=== PATIENT | male | born 1965 | race Caucasian/White ===

== ENCOUNTER 2021-05-13 20:49 | Emergency (ER) | payer OTHER, SELFPAY ==
[2021-05-13] MEDS ORDERED: DIAZEPAM 5 MG TABLET ONE (22:42)
[2021-05-13] MEDS ORDERED: dexAMETHasone 10 MG/ML VIAL ONE (22:45)
[2021-05-13] MEDS ORDERED: MORPHINE 4 MG/ML SYR ONE (22:45)
[2021-05-13] MEDS ORDERED: KETOROLAC 30 MG/ML INJ ONE (22:46)
[2021-05-13] MEDS ORDERED: ONDANSETRON 4 MG/2 ML VIAL ONE (22:46)
[2021-05-13 23:06] LABS: Albumin 3.9 g/dL (3.4-5.0); Bilirubin Direct 0.2 mg/dL (0-0.2); Bilirubin Total 0.9 mg/dL (0.2-1.0); Potassium 3.9 mmol/L (3.5-5.1); Protein, Total 7.4 g/dL (6.4-8.2)
[2021-05-13 23:08] LABS: Urine Blood Negative (Negative); Urine Glucose Negative (Negative); Urine Protein Negative (Negative); Urine Specific Gravity >=1.030 (1.005-1.030)
[2021-05-13 23:44] LABS: Absolute Lymphocytes (CBC) 2.6 K/uL (0.7-4.9); Basophils % 0.8 % (0-1.3); Hematocrit 29.5 % (39.6-49.0); Lymphocytes % 46.9 % (15.3-44.8); MPV 9.1 fL (7.6-11.3)
--- NOTE | 2021-05-14 00:03 | EDPHYS ---
Physician Documentation [facility] Name: Yash Carreon Jr Age: 55 yrs Sex: Male : 1965 Arrival Date: 05/13/2021 Time: 20:54 Bed 4 Private MD: ED Physician Francisco Javier Lovett HPI: 05/13 22:14 This 55 yrs old Male presents to ER via Ambulatory with complaints of Low ac Back Pain, Leg Pain - Bilateral, Tingling of legs, Fall Injury - Almost a month ago. 22:14 The patient presents with pain that is acute. The symptoms are located in the low back, ac lumbar area. The pain does not radiate. The problem was sustained during a fall, while standing. Onset: The symptoms/episode began/occurred 1 month(s) ago. Modifying factors: The patient symptoms are alleviated by remaining still, the patient symptoms are aggravated by lifting, movement. Associated signs and symptoms: Pertinent positives: numbness, tingling. Severity of symptoms: At their worst the symptoms were moderate, in the emergency department the symptoms are unchanged. The patient has not experienced similar symptoms in the past. Historical: - Allergies: 21:08 tetanus-diphtheria toxoids-Td; da3 - PMHx: 21:08 None; da3 - PSHx: 21:08 back surgery; da3 - Immunization history:: Client reports having NOT received the Covid vaccine. - Social history:: Smoking status: Patient denies any tobacco usage or history of. - Family history:: not pertinent. ROS: 22:14 Constitutional: Negative for fever, chills, and weight loss, Eyes: Negative for injury, ac pain, redness, and discharge, ENT: Negative for injury, pain, and discharge, Neck: Negative for injury, pain, and swelling, Cardiovascular: Negative for chest pain, palpitations, and edema, Respiratory: Negative for shortness of breath, cough, wheezing, and pleuritic chest pain, Abdomen/GI: Negative for abdominal pain, nausea, vomiting, diarrhea, and constipation, : Negative for injury, bleeding, discharge, and swelling, Skin: Negative for injury, rash, and discoloration, Psych: Negative for depression, anxiety, suicide ideation, homicidal ideation, and hallucinations, Allergy/Immunology: Negative for hives, rash, and allergies, Endocrine: Negative for neck swelling, polydipsia, polyuria, polyphagia, and marked weight changes, Hematologic/Lymphatic: Negative for swollen nodes, abnormal bleeding, and unusual bruising. 22:14 Back: Positive for pain at rest, pain with movement. 22:14 MS/extremity: Positive for decreased range of motion, pain, tenderness, of the back. Exam: 22:14 Constitutional: This is a well developed, well nourished patient who is awake, alert, ac and in no acute distress. Head/Face: Normocephalic, atraumatic. Eyes: Pupils equal round and reactive to light, extra-ocular motions intact. Lids and lashes normal. Conjunctiva and sclera are non-icteric and not injected. Cornea within normal limits. Periorbital areas with no swelling, redness, or edema. ENT: Nares patent. No nasal discharge, no septal abnormalities noted. Tympanic membranes are normal and external auditory canals are clear. Oropharynx with no redness, swelling, or masses, exudates, or evidence of obstruction, uvula midline. Mucous membranes moist. Neck: Trachea midline, no thyromegaly or masses palpated, and no cervical lymphadenopathy. Supple, full range of motion without nuchal rigidity, or vertebral point tenderness. No Meningismus. Chest/axilla: Normal chest wall appearance and motion. Nontender with no deformity. No lesions are appreciated. Cardiovascular: Regular rate and rhythm with a normal S1 and S2. No gallops, murmurs, or rubs. Normal PMI, no JVD. No pulse deficits. Respiratory: Lungs have equal breath sounds bilaterally, clear to auscultation and percussion. No rales, rhonchi or wheezes noted. No increased work of breathing, no retractions or nasal flaring. Abdomen/GI: Soft, non-tender, with normal bowel sounds. No distension or tympany. No guarding or rebound. No evidence of tenderness throughout. Male : Normal genitalia with no discharge or lesions. Skin: Warm, dry with normal turgor. Normal color with no rashes, no lesions, and no evidence of cellulitis. Psych: Awake, alert, with orientation to person, place and time. Behavior, mood, and affect are within normal limits. 22:14 Back: normal spinal alignment noted, CVA tenderness, is absent, vertebral tenderness, is not appreciated, muscle spasm, is appreciated in the left low back, left mid back, right mid back and right low back. Vital Signs: 21:04 BP 128 / 81; Pulse 102; Resp 24; Temp 97.9; Pulse Ox 100% on R/A; Weight 77.11 kg; da3 Height 5 ft. 9 in. (175.26 cm); 23:29 BP 116 / 75; Pulse 88; Resp 20 S; Temp 97.5(O); Pulse Ox 100% on R/A; as6 21:04 Body Mass Index 25.10 (77.11 kg, 175.26 cm) da3 MDM: 21:59 Patient medically screened. [facility] 22:17 Differential diagnosis: arthritis, strain, fracture, sciatica, contusion, Herniated ac disc UTI. Data reviewed: vital signs, nurses notes, lab test result(s), CBC, electrolytes, radiologic studies. Data interpreted: roller skater: rate is 102 beats/min, rhythm is regular, Pulse oximetry: on room air is 100 %. Test interpretation: by ED physician or midlevel provider: ECG, plain radiologic studies. Counseling: I had a detailed discussion with the patient and/or guardian regarding: the historical points, exam findings, and any diagnostic results supporting the discharge/admit diagnosis, lab results, radiology results. 05/13 22:14 Order name: Basic Metabolic Panel; Complete Time: 23:56 [facility] 05/13 22:14 Order name: CBC with Diff [facility] 05/13 22:14 Order name: Type And Screen; Complete Time: 23:56 [facility] 05/13 22:14 Order name: LFT's; Complete Time: 23:56 [facility] 05/13 23:08 Order name: Urine Dipstick-Ancillary; Complete Time: 23:56 [facility] 05/13 22:14 Order name: CT Traumagram (Head C Spine CAP W Con) [facility] 05/13 22:14 Order name: Labs collected and sent; Complete Time: 22:36 [facility] 05/13 23:46 Order name: CBC Smear Scan [facility] 05/13 22:14 Order name: Urine Dipstick-Ancillary (obtain specimen); Complete Time: 23:09 [facility] Administered Medications: 22:56 Drug: Decadron - Dexamethasone 10 mg Route: IVP; Site: right antecubital; as6 22:56 Drug: Valium (diazepam) 5 mg Route: PO; as6 22:56 Drug: morphine 4 mg Route: IVP; Site: right antecubital; as6 22:57 Drug: Ketorolac 30 mg Route: IVP; Site: right antecubital; as6 22:57 Drug: Zofran (Ondansetron) 4 mg Route: IVP; Site: right antecubital; as6 Disposition Summary: 05/14/21 00:02 Discharge Ordered Location: Home [facility] Problem: new [facility] Symptoms: have improved [facility] Condition: Stable [facility] Diagnosis - Low back pain ac - Cervical disc disorder with radiculopathy [facility] - Sciatica [facility] Followup: [facility] - With: Private Physician - When: 2 - 3 days - Reason: Recheck today's complaints, Continuance of care, Re-evaluation by your physician Followup: ac - With: Hunter Molina MD - When: 2 - 3 days - Reason: Recheck today's complaints, Continuance of care, Re-evaluation by your physician Discharge Instructions: - Discharge Summary Sheet [facility] - Acute Back Pain, Adult [facility] - Musculoskeletal Pain [facility] - Back Injury Prevention, [id number] [facility] - Back Exercises, [id number] [facility] Forms: - Medication Reconciliation Form [facility] - Thank You Letter [facility] - Antibiotic Education [facility] - Prescription Opioid Use [facility] Prescriptions: - dexamethasone 2 mg Oral tablet - take 1 tablet by ORAL route 3 times per day; 15 tablet; Refills: 0, Product [facility] Selection Permitted - Diclofenac Sodium 75 mg Oral tablet,delayed release (DR/EC) - take 1 tablet by ORAL route 2 times per day; 20 tablet; Refills: 0, Product [facility] Selection Permitted - Cyclobenzaprine 5 mg Oral Tablet - take 1 tablet by ORAL route 3 times per day As needed; 15 tablet; Refills: 0, [facility] Product Selection Permitted - Tylenol-Codeine #3 300 mg-30 mg Oral - take 2 tablet by ORAL route every 4-6 hours; 20 tablet; Refills: 0, Product [facility] Selection Permitted Signatures: Dispatcher [employer] Francisco Javier Adams MD MD cha Allan, David, RN RN da3 Lance Moscoso RN RN as6
--- NOTE | 2021-05-14 00:03 | ER ---
Nurse's Notes [facility] Name: Yash Carreon Jr Age: 55 yrs Sex: Male : 1965 Arrival Date: 05/13/2021 Time: 20:54 Bed 4 Private MD: Diagnosis: Low back pain;Cervical disc disorder with radiculopathy;Sciatica Presentation: 05/13 21:04 Chief complaint: Patient states: back pain secondary to fall 1 week ago. Coronavirus da3 screen: Vaccine status: Patient reports being unvaccinated. Ebola Screen: No symptoms or risks identified at this time. Initial Sepsis Screen: Does the patient meet any 2 criteria? No. Patient's initial sepsis screen is negative. Does the patient have a suspected source of infection? No. Patient's initial sepsis screen is negative. Risk Assessment: Do you want to hurt yourself or someone else? Patient reports no desire to harm self or others. Onset of symptoms was May 06, 2021 at 15:00. 21:04 Method Of Arrival: Ambulatory da3 21:04 Acuity: JAYESH 3 da3 Triage Assessment: 21:08 General: Appears uncomfortable, Behavior is calm, cooperative. Pain: Complains of pain da3 in back, right leg and left leg. Historical: - Allergies: 21:08 tetanus-diphtheria toxoids-Td; da3 - PMHx: 21:08 None; da3 - PSHx: 21:08 back surgery; da3 - Immunization history:: Client reports having NOT received the Covid vaccine. - Social history:: Smoking status: Patient denies any tobacco usage or history of. - Family history:: not pertinent. Screenin:05 Abuse screen: Denies threats or abuse. Denies injuries from another. Nutritional tw5 screening: No deficits noted. Assessment: 22:05 General: Reports " I have been having this pain since my fall on the . The pain in tw5 my lower back is getting worse. It starts in my lower back and goes all the way to the toes. They are tingling and numb and my groin area is starting to get numb as well." Patient states he had an MRI done yesterday and [facility]. He states he has not received the report yet.". 23:30 Reassessment: Patient and/or family updated on plan of care and expected duration. Pain as6 level reassessed. Patient is alert, oriented x 3, equal unlabored respirations, skin warm/dry/pink. Vital Signs: 21:04 BP 128 / 81; Pulse 102; Resp 24; Temp 97.9; Pulse Ox 100% on R/A; Weight 77.11 kg; da3 Height 5 ft. 9 in. (175.26 cm); 23:29 BP 116 / 75; Pulse 88; Resp 20 S; Temp 97.5(O); Pulse Ox 100% on R/A; as6 21:04 Body Mass Index 25.10 (77.11 kg, 175.26 cm) da3 ED Course: 20:54 Patient arrived in ED. da3 21:08 Triage completed. da3 21:08 Arm band placed on right wrist. da3 21:58 Maria Eugenia Valverde is Primary Nurse. tw5 21:59 Francisco Javier Lovett MD is Attending Physician. ac 22:05 Patient has correct armband on for positive identification. Placed in gown. Bed in low tw5 position. Call light in reach. Side rails up X 1. disk sander on. Pulse ox on. NIBP on. Door closed. Noise minimized. Moved to private room. Verbal reassurance given. 22:36 Basic Metabolic Panel Sent. as6 22:36 CBC with Diff Sent. as6 22:36 Type And Screen Sent. as6 23:15 CT Traumagram (Head C Spine CAP W Con) In Process Unspecified. EDMS 05/14 00:01 Hunter Molina MD is Referral Physician. ac Administered Medications: 05/13 22:56 Drug: Decadron - Dexamethasone 10 mg Route: IVP; Site: right antecubital; as6 22:56 Drug: Valium (diazepam) 5 mg Route: PO; as6 22:56 Drug: morphine 4 mg Route: IVP; Site: right antecubital; as6 22:57 Drug: Ketorolac 30 mg Route: IVP; Site: right antecubital; as6 22:57 Drug: Zofran (Ondansetron) 4 mg Route: IVP; Site: right antecubital; as6 Outcome: 05/14 00:02 Discharge ordered by . ac 00:33 Patient left the ED. mw2 Signatures: Dispatcher [employer] EDMS Bony, Francisco Javier, MD MD ac Cari, MyKena mw2 Andrew Richter, RN RN da3 Maria Eugenia Valverde tw5 Lance Moscoso, NAIMA RN as6
[2021-05-14 00:43] LABS: Blood Morphology Comment NOTED (NOT SEEN); Macrocytosis 3+; Platelet Estimate ADEQ; White Blood Cell Scan OK (OK)
[2021-05-14 01:02] VITALS: O2SAT 100
[2021-05-14 01:04] VITALS: BP 116/75; TEMP 97.5
--- NOTE | 2021-05-14 12:25 | RAD REPORT ---
EXAM DESCRIPTION: CT - Head C Spine Alessio Norris - 05/14/2021 6:26 am CLINICAL HISTORY: Pain;Weakness;Numbness/tingling. TECHNIQUE: Noncontrast CT through the head was performed. Axial, coronal, and sagittal reconstructio ns were created and sent to PACS. CT of the cervical spine was performed without contrast. Axial, coronal, and sagittal reconstructions were created and sent to PACS. CT of the chest, abdomen, and pelvis was performed following intravenous administration of iodinated contrast. Oral contrast was not administered. Axial, coronal, and sagittal reconstructions were creat ed and sent to PACS. This exam was performed according to our departmental dose-optimization program, which includes autom ated exposure control, adjustment of the mA and/or kV according to patient size and/or use of iterati ve reconstruction technique. FINDINGS: CT Head: The brain parenchyma appears unremarkable. There is no intra-axial or extra-axial bleed seen. There i s no mass or mass effect. The ventricles are normal in size, shape, and configuration. The orbital co ntents appear unremarkable. The visualized paranasal sinuses and mastoid air cells are clear. No acute fracture is identified. CT cervical spine: No acute osseous abnormality identified. Vertebral body height and alignment are maintained. No atlan todental interval widening. Atlantoaxial alignment is maintained. The facet joints are well aligned. The posterior elements are intact. The occipital condyles are well aligned with the C1 lateral masses . The transverse foramina are intact. C2-C3: No significant central canal or neuroforaminal narrowing. C3-C4: No significant central canal or neuroforaminal narrowing. C4-C5: Mild bilateral neuroforaminal narrowing due to uncinate and facet hypertrophy. No significant central canal narrowing. C5-C6: Mild disc height loss. Posterior disc osteophyte complex results in moderate central canal dianna rowing to 0.5 cm AP. Mild bilateral neuroforaminal narrowing due to uncinate and facet hypertrophy. C6-C7: No significant central canal or neuroforaminal narrowing. Paraspinal soft tissues: No prevertebral soft tissue swelling. No evidence of epidural hematoma. No a cute findings in the demonstrated portions of the lung apices. CT chest, abdomen, pelvis: Lungs and pleura: No pulmonary consolidation. No pleural effusion. No pneumothorax. Mediastinum and neck: No mediastinal lymphadenopathy identified by CT size criteria. Unremarkable lary earance of the thyroid gland. Cardiac: No cardiomegaly or pericardial effusion. No thoracic aortic aneurysm or dissection. No centr al pulmonary embolism is visualized. Hepatobiliary: Tiny hypodensity in the superior left hepatic lobe, possibly a cyst or hemangioma. No concerning hepatic lesion identified. The portal veins are patent. The gallbladder is unremarkable. N o biliary ductal dilatation. Pancreas: Unremarkable. Spleen: Unremarkable. Gastrointestinal: No evidence of bowel obstruction or perienteric inflammation. The appendix is nonvi sualized, but there are no pericecal inflammatory changes identified.. Small to moderate amount of fe juliette material throughout the colon. Adrenals: No abnormality identified in either adrenal gland. Renal: Trace bilateral perinephric fat stranding. No concerning parenchymal abnormality in either kid rhonda. No hydronephrosis or urolithiasis. Bladder/Reproductive: Mild diffuse wall thickening of the urinary bladder. Vascular/Lymphatics: No lymphadenopathy identified by CT size criteria. Abdominal aorta is normal in caliber. Musculoskeletal: No concerning osseous lesion identified. Mild disc height loss at L5-S1. Mild facet arthropathy in the lower lumbar spine. Fluid / peritoneum: No significant free fluid. No free intraperitoneal air identified. IMPRESSION 1. No acute intracranial abnormality identified. 2. No acute osseous abnormality identified in the cervical spine. Degenerative changes, most notabl e for moderate central canal narrowing at C5-6 due to a posterior disc osteophyte complex. 3. Mild diffuse wall thickening of the urinary bladder. Consider correlation for cystitis. 4. No additional potential acute abnormality identified in the chest, abdomen, or pelvis. Electronically signed by: Lili Alvarez MD 05/13/2021 11:47 PM INSIDE UPHOLSTERER Due to temporary technical issues with the PACS/Fluency reporting system, reports are being signed by the in house radiologist without review as a courtesy to ensure prompt reporting. The interpreting r adiologist is fully responsible for the content of the report.
== END 2021-05-14 00:33 | disposition home or self-care (01) ==
LOC: ER 20:49
DX: M50.10 Cervical disc disorder with radiculopathy, unspecified cervical region (principal); M54.30 Sciatica, unspecified side; Z88.7 Allergy status to serum and vaccine
CPT/HCPCS: 85025; 80048; 36415; 86900; 86850; 82565; 86901; 80076; 81003; 70450; 72125; 71260; 74177; Q9967; J2405; J1100

== ENCOUNTER 2021-10-08 22:50 | Emergency (ER) | payer OTHER ==
--- OUTSIDE RECORDS SUMMARY | 2021-10-08 22:52 | XMS REPORT | Continuity of Care Document ---
:1965 Author Organization [facility] t Address [address] [place] [address] Care Team Providers Name Role Phone Grigoreff Attending Clinician Unavailable Rainer Attending Clinician Unavailable Rainer Admitting Clinician Unavailable Grigoreff Admitting Clinician Unavailable Payers Payer Name Policy Type Policy Number Effective Date Expiration Date S ource Problems This patient has no known problems. Allergies, Adverse Reactions, Alerts Allergy Allergy Status Severity Reaction(s) Onset Inactive Treating Comm ents Source Name Type Date Date Clinician lactose FA Active U DIARRHEA [facility] 06-18 [place] 00:00: [facility] 00 are [facility] Tetanus DA Active U ARM SWE[facility] Vaccines 06-18 [place] and 00:00: [facility] Toxoid 00 are [facility] No Known DA Active U [facility] Allergie 06-18 [place] 00:00: [facility] 00 are [facility] Medications This patient has no known medications. Procedures Procedure Date / Time Performed Performing Clinician [facility] tu [id number] 2021-06-27 00:00:00 LUCAS [facility] [id number] 2021-06-27 00:00:00 LUCAS [facility] [id number] 2021-06-27 00:00:00 DANNA [facility] [id number] 2021-06-20 00:00:00 DANNA [facility] [id number] 2021-06-20 00:00:00 DANNA [facility] [id number] 2021-06-20 00:00:00 OWUAN [facility] [id number] 2021-06-20 00:00:00 OWUAN [facility] [id number] 2021-06-20 00:00:00 OWUAN [facility] [id number] 2021-06-20 00:00:00 OWUAN [facility] [id number] 2021-06-20 00:00:00 OWUAN [facility] [id number] 2021-06-20 00:00:00 OWUAN [facility] [id number] 2021-06-20 00:00:00 OWUAN [facility] [id number] 2021-06-20 00:00:00 OWKATELIN [facility] [id number] 2021-06-20 00:00:00 OWKATELIN [facility] [id number] 2021-06-20 00:00:00 OWKATELIN [facility] Encounters Start End Encounter Admission Attending Care Care Encounter Source Date/Time Date/Time Type Type Clinicians Facility Department ID 2021-07-09 Inpatient Grigoreff, HCANW HCANW [id number] [facility] 09:00:00 Meri [id number] [facility] are [facility] 2021-06-26 2021-07-08 Inpatient EL Grigoreff, HCANW REHA [id number] [facility] 14:33:00 15:00:00 Meri 87 [facility] are [facility] 2021-06-26 2021-07-08 Inpatient EL Grigoreff, HCANW REHA [id number] [facility] 14:33:00 15:00:00 Meri [id number] [facility] are [facility] 2021-06-20 2021-06-26 Inpatient EL Rainer, HCANW ADMI [id number] [facility] 06:24:00 14:53:00 Chip [id number] [facility] are [facility] Results Test Description Test Time Test Comments Results Result Comments Source COMPREHENSIVE METABOLIC PANEL 2021-08-26 05:34:01 Test Item Value Reference Range Interpretation Comme nts GLUCOSE (test code = 2217) 104 MG/DL 70-99 H BUN (test code = 2208) 13 MG/DL 6-20 CREATININE (test code = 0.94 MG/DL 0.80-1.40 2213) eGFR (2020 CKD-EPI) (test 95 ML/MIN/1.73 >60 code = 00940) CALC BUN/CREAT (test code = 14 RATIO 6-28 2234) SODIUM (test code = 223) 141 MEQ/L 133-146 POTASSIUM (test code = 4.1 MEQ/L 3.5-5.4 2227) CHLORIDE (test code = 2214) 104 MEQ/L 95-107 CARBON DIOXIDE (test code = 24 MEQ/L 19-31 2205) CALCIUM (test code = 2208) 9.3 MG/DL 8.5-10.5 PROTEIN, TOTAL (test code = 7.3 G/DL 6.1-8.3 2228) ALBUMIN (test code = 2200) 4.5 G/DL 3.5-5.2 CALC GLOBULIN (test code = 2.8 G/DL 1.9-3.7 2239) CALC A/G RATIO (test code = 1.6 RATIO 1.0-2.6 2233) BILIRUBIN, TOTAL (test code 0.6 MG/DL See_Comment [Automated message] The = 2206) system which ge nerated this result transmit shukri reference range: <=1.2. T he reference range was not u sed to interpret this result as normal/abnormal . ALKALINE PHOSPHATASE (test 112 U/L 40-123 code = 2203) AST (test code = 2218) 13 U/L 9-50 ALT (test code = 2219) 14 U/L 5-50 UNLESS OTHERWISE INDICATED, ALL TESTING PERFORMED [facility] [address] [place] [address] WRINKLE CHASER: MAGALY SIEGEL M.D. CLIA NUMBER [id number] [place]. [id number] - CT L-SPINE W/O [id number] 12:32:[facility] 1965 Sex: MPatient Name: HERB AVENDANO GARY MARTIN Unit No: [id number] EXAMS: CPT: [id number] CT L-SPINE W/O CONTRAST [address] CT LUMBAR SPINE Multiplanar imaging of the lumbar spinewas performed without contrast. Radiation dose optimization was achieved by protocols in accordance with standard of practice, department policies and photo optics technician's recommendations with one or more of the following: Automated exposure control, adjustment of KVP an d MAS by age and weight, iterative reconstruction technique. DLP: 552 mGy/cm HISTORY PROVIDED: Previous surgery. Increasing pain. COMPARISON: Patient had CT lumbar spine June 22, 2021 FINDINGS: T12-L1: The disc is normal in size and configuration. There is no disc herniation or bulge. Facets demonstrate no significant arthrosis. There is no spinal or foraminal stenosis. L1-L2: The disc is normal in size and configuration. There is no disc herniation or bulge. Facets demonstrate no significant arthrosis. There is no spinal or foraminal stenosis. L2-L3: The disc is normal in size and configuration. There is no disc herniation or bulge. Facets demonstrate no significant arthrosis. There is no spinal or foraminal stenosis. L3-L4: The disc is normal in size and configuration. There is no disc herniation or bulge. Facets demonstrate no significant arthrosis. There is no spinal or foraminal stenosis. L4-L5: Pedicle screws are nicely positioned in L4 and L5. Interbody grafting is evident. Wide laminectomy allows forgood expansion of the central canal. Detail is obscured by hardware and postoperative changes. There apparently has been interval surgery with removal of some bone graft material noted at this level on the prior exam. L5-S1: Pedicle screws are nicely positioned in L5 and S1. Interbody graft is evident. There is wide laminectomy posteriorly allowing for good expansion of the central canal. At the operated levels no focal fluid collection is identified posteriorly although some soft tissue swelling as might be expected is appreciated. CONCLUSION: The postoperative levels do not show focalfluid collection posteriorly and there is no evidence of spinal stenosis although there Name: HERB AVENDANO JR [facility] Phys: Mara Ham [facility] [address] : 1965 Age: 55 Sex: M [place] [address] Loc: N.0312 1 Exam Date: 07/08/2021 Status: ADM IN PH: FAX: PAGE 1 Signed Report (CONTINUED) Patient Name: HERB AVENDANO Unit No: [id number] EXAMS: CPT: [id number] CT L-SPINE W/O CONTRAST 14086 <Continued> is substantial artifact from the hardware which limits detail evaluation of the central canal. at 1232 Reported and signed by: Hector Cooney MD CC: Meri Rosas MD;Chip Spear MD; Mara Paiz Technologist: Wilian Garces CTDI: 15.27 DLP: 552.03 Trscr Dt/Tm: 07/08/2021 (1232) by:Black Orig Print D/T: S: 07/08/2021 (1235) BATCH NO: N/A Name: HERB AVENDANO GARY MARTIN [facility] Phys: Mara Ham [facility] [address] : 1965 Age: 55 Sex: M [place] [address] Loc: N.0312 1 Exam Date: 07/08/2021 Status: ADM IN PH: FAX: PAGE 2Signed [id number] GLYCOSYLATED [id number] 12:46:00 Test Item Value Reference Range Interpretation Comments GLYCOSYLATED HEMOGLOBIN 4.9 % 4.0-6.0 N Inte rpretive Data: (HA1C) (test code = Caution should be GLYHGB) exercised when interpreting th e HgbA1c in patients wit h hemolytic anemi a, iron deficiency and when the total hemoglobi n is < 9g/dL, due to a decrease in ave rage age of red blood ce lls Spec Comments: add to collected labsComments to Phleb: add to collected labsCBC W/AUTO [id number] 09:48:00 Test Item Value Reference Range Interpretation Comments WHITE BLOOD CELL (test code = 7.2 x10 3/uL 3.2-11.5 N WBC) RED BLOOD CELL (test code = 2.53 x10(6)/m 4.20-5.70 L RBC) HEMOGLOBIN (test code = HGB) 10.6 g/dL 12.9-17.3 L HEMATOCRIT (test code = HCT) 30.7 % 38.7-51.0 L MEAN CELL VOLUME (test code = 121 fL 80-100 H MCV) MEAN CELL HGB (test code = MCH) 41.9 pg 26.7-33.3 H MEAN CELL HGB CONCENTRATION 34.5 g/dL 30.0-34.0 H (test code = MCHC) RED CELL DISTRIBUTION WIDTH 12.8 % 11.3-14.5 N (test code = RDW) PLATELET COUNT (test code = 498 x10 3/uL 130-408 H PLT) MEAN PLATELET VOLUME (test code 10.2 fL 8.6-12.6 N = MPV) NEUTROPHIL % (test code = NT%) 68.4 % 40.0-70.0 N LYMPHOCYTE % (test code = LY%) 21.0 % 20-40 N MONOCYTE % (test code = MO%) 5.9 % 1-10 N EOSINOPHIL % (test code = EO%) 3.6 % 0.0-5.0 N BASOPHIL % (test code = BA%) 0.8 % 0.0-1.0 N NUCLEATED RBC % (test code = 0.0 % 0.0-0.9 N NRBC%) NEUTROPHIL # (test code = NT#) 4.9 x10 3/uL 1.6-7.2 N LYMPHOCYTE # (test code = LY#) 1.52 x10 3/uL 1.1-2.7 N MONOCYTE # (test code = MO#) 0.4 x10 3/uL 0.3-0.8 N EOSINOPHIL # (test code = EO#) 0.3 x10 3/uL 0.0-0.5 N IMMATURE GRANULOCYTE % (test 0.3 % 0.0-2.0 N code = IG%) BASOPHIL # (test code = BA#) 0.1 x10 3/uL 0.0-0.1 N DIFFERENTIAL [id number] 09:48:00 Test Item Value Reference Range Interpretation Comments PLATELET MORPHOLOGY (test code = NORM NORMAL PLTMORPH) POLYCHROMASIA (test code = POLC) 1+ NONE SEEN A MACROCYTOSIS (test code = MACR) 2+ NONE SEEN A BASIC METABOLIC [id number] 07:23:00 Test Item Value Reference Range Interpretation Comments SODIUM (test code 137 mmol/L 135-145 N = NA) POTASSIUM (test 3.6 mmol/L 3.6-5.0 N code = K) CHLORIDE (test 102 mmol/L 101-111 N code = CL) CARBON DIOXIDE 26 mmol/L 21-31 N (test code = CO2) GLUCOSE (test code 124 mg/dl 70-100 H = GLU) BLOOD UREA 15 mg/dl 6-20 N NITROGEN (test code = BUN) GLOMERULAR >=60 max >60 The estimated FILTRATION RATE estimate glomerular (test code = GFR) filtration rate is computed usingpatient ra ce, age (>18), sex, and serum creatinin e. If anyof the neede d data elements a re missing the Laboratory mary ot compute an estimation of t he glomerular filtration rate . CREATININE (test 0.96 mg/dL 0.64-1.27 N code = CREAT) CALCIUM (test code 9.1 mg/dL 8.5-10.5 N = CA) - XR C-SPINE 2-3 [id number] 17:56:00 [facility] : 1965 Sex: MPatient Name: HERB AVENDANO GARY Unit No: [id number] EXAMS: CPT: [id number] XR C-SPINE 2-3 VIEWS [id number] EXAMINATION:Cervical Spine 3 views. INDICATION: Neck pain COMPARISON:None FINDINGS: AP, lateral, and open-mouth odontoid views of the cervical spine. Vertebral bodies normal in height. Mild straightening of the cervical lordosis There is no acute fracture or dislocation. No focal osseous lesionsare evident. No prevertebral soft tissue swelling. Anterior osteophytes and C5 and C6 with mild degenerative disc space narrowing at C5-C6. Facet and uncovertebral arthrosis most notable at C3-C4, C4-C5 and C5-C6. IMPRESSION: No acute abnormality seen of the cervical spine. Degenerative changes as above. at 1756 Reported and signed by: Radha Mireles MD CC: Meri Rosas MD; Chip Spear MD Technologist: Radha Ortega Time: DAP (Gy m2): Air Kerma (mGy): Trscr Dt/Tm: 07/03/2021 (1755) by:[email or web address] Orig Print D/T: S: 07/03/2021 (1758) BATCH NO: N/A Name: HERB AVENDANO [facility] Phys: Meri Canela MD [address] : 1965 Age: 55 Sex: M [place], [place] [address] Loc: N.0312 1 Exam Date: 07/03/2021 Status: ADM IN PH: FAX: PAGE 1 Signed ReportCBC W/AUTO [id number] 11:29:00 Test Item Value Reference Range Interpretation Comments WHITE BLOOD CELL (test code = 7.2 x10 3/uL 3.2-11.5 N WBC) RED BLOOD CELL (test code = 2.68 x10(6)/m 4.20-5.70 L RBC) HEMOGLOBIN (test code = HGB) 11.4 g/dL 12.9-17.3 L HEMATOCRIT (test code = HCT) 32.6 % 38.7-51.0 L MEAN CELL VOLUME (test code = 122 fL 80-100 H MCV) MEAN CELL HGB (test code = MCH) 42.5 pg 26.7-33.3 H MEAN CELL HGB CONCENTRATION 35.0 g/dL 30.0-34.0 H (test code = MCHC) RED CELL DISTRIBUTION WIDTH 13.3 % 11.3-14.5 N (test code = RDW) PLATELET COUNT (test code = 579 x10 3/uL 130-408 H PLT) MEAN PLATELET VOLUME (test code 9.9 fL 8.6-12.6 N = MPV) NEUTROPHIL % (test code = NT%) 64.7 % 40.0-70.0 N IMMATURE GRANULOCYTE % (test 0.7 % 0.0-2.0 N code = IG%) LYMPHOCYTE % (test code = LY%) 27.7 % 20-40 N MONOCYTE % (test code = MO%) 4.0 % 1-10 N EOSINOPHIL % (test code = EO%) 1.9 % 0.0-5.0 N BASOPHIL % (test code = BA%) 1.0 % 0.0-1.0 N NUCLEATED RBC % (test code = 0.0 % 0.0-0.9 N NRBC%) NEUTROPHIL # (test code = NT#) 4.7 x10 3/uL 1.6-7.2 N LYMPHOCYTE # (test code = LY#) 2.00 x10 3/uL 1.1-2.7 N MONOCYTE # (test code = MO#) 0.3 x10 3/uL 0.3-0.8 N EOSINOPHIL # (test code = EO#) 0.1 x10 3/uL 0.0-0.5 N BASOPHIL # (test code = BA#) 0.1 x10 3/uL 0.0-0.1 N DIFFERENTIAL [id number] 11:29:00 Test Item Value Reference Range Interpretation Comments PLATELET MORPHOLOGY (test code = NORM NORMAL PLTMORPH) MACROCYTOSIS (test code = MACR) 2+ NONE SEEN A BASIC METABOLIC [id number] 11:10:00 Test Item Value Reference Range Interpretation Comments SODIUM (test code 138 mmol/L 135-145 N = NA) POTASSIUM (test 3.8 mmol/L 3.6-5.0 N code = K) CHLORIDE (test 102 mmol/L 101-111 N code = CL) CARBON DIOXIDE 25 mmol/L 21-31 N (test code = CO2) GLUCOSE (test code 139 mg/dl 70-100 H = GLU) BLOOD UREA 15 mg/dl 6-20 N NITROGEN (test code = BUN) GLOMERULAR >=60 max >60 The estimated FILTRATION RATE estimate glomerular (test code = GFR) filtration rate is computed usingpatient ra ce, age (>18), sex, and serum creatinin e. If anyof the neede d data elements a re missing the Laboratory mary ot compute an estimation of t he glomerular filtration rate . CREATININE (test 0.94 mg/dL 0.64-1.27 N code = CREAT) CALCIUM (test code 9.3 mg/dL 8.5-10.5 N = CA) [id number] 14:25:00 Test Item Value Reference Range Interpretation Comments TROPONIN-I (test code = TROPI) <0.020 ng/mL 0.000-0.034 N [id number] 13:28:00 Test Item Value Reference Range Interpretation Comments GLUBED (test code = GLUBED) 112 MG/DL 70-105 H COVID 19 Asymptomatic IH [id number] 10:05:00 Test Item Value Reference Range Interpretation Comments COVID 19 Asymptomatic Negative Negative Negati ve results should IH AG (test code = be treate d as COVNONPUIAG) presumptive andconfirmed wi th a molecular assay , if necessary for patientmanageme nt. Negative result s do not rule out COVID- 19 andshould not b e used as the sole bas is for treatment orpat ient management deci sions, including infec tion controldecision s. Negative result s should be considered i n thecontext of a patient's recen t exposures, hist ory and thepresence of clnical signs and sympt oms consistent withCOVID-19.Sp ecimen Source: Nasopha ryngeal (PANEL INSTRUMENT REPAIRER) Swab CBC W/AUTO [id number] 09:42:00 Test Item Value Reference Range Interpretation Comments WHITE BLOOD CELL (test code = 7.4 x10 3/uL 3.2-11.5 N WBC) RED BLOOD CELL (test code = 2.18 x10(6)/m 4.20-5.70 L RBC) HEMOGLOBIN (test code = HGB) 9.5 g/dL 12.9-17.3 L HEMATOCRIT (test code = HCT) 26.8 % 38.7-51.0 L MEAN CELL VOLUME (test code = 123 fL 80-100 H MCV) MEAN CELL HGB (test code = MCH) 43.6 pg 26.7-33.3 H MEAN CELL HGB CONCENTRATION 35.4 g/dL 30.0-34.0 H (test code = MCHC) RED CELL DISTRIBUTION WIDTH 12.4 % 11.3-14.5 N (test code = RDW) PLATELET COUNT (test code = 414 x10 3/uL 130-408 H PLT) MEAN PLATELET VOLUME (test code 10.1 fL 8.6-12.6 N = MPV) NEUTROPHIL % (test code = NT%) 66.9 % 40.0-70.0 N LYMPHOCYTE % (test code = LY%) 20.5 % 20-40 N MONOCYTE % (test code = MO%) 7.8 % 1-10 N EOSINOPHIL % (test code = EO%) 3.6 % 0.0-5.0 N BASOPHIL % (test code = BA%) 0.7 % 0.0-1.0 N NUCLEATED RBC % (test code = 0.0 % 0.0-0.9 N NRBC%) NEUTROPHIL # (test code = NT#) 4.9 x10 3/uL 1.6-7.2 N LYMPHOCYTE # (test code = LY#) 1.52 x10 3/uL 1.1-2.7 N MONOCYTE # (test code = MO#) 0.6 x10 3/uL 0.3-0.8 N EOSINOPHIL # (test code = EO#) 0.3 x10 3/uL 0.0-0.5 N IMMATURE GRANULOCYTE % (test 0.5 % 0.0-2.0 N code = IG%) BASOPHIL # (test code = BA#) 0.1 x10 3/uL 0.0-0.1 N DIFFERENTIAL [id number] 09:42:00 Test Item Value Reference Range Interpretation Comments PLATELET MORPHOLOGY (test code = Normal NORMAL PLTMORPH) POLYCHROMASIA (test code = POLC) 1+ NONE SEEN A MACROCYTOSIS (test code = MACR) 2+ NONE SEEN A BASIC METABOLIC [id number] 08:58:00 Test Item Value Reference Range Interpretation Comments SODIUM (test code 134 mmol/L 135-145 L = NA) POTASSIUM (test 3.7 mmol/L 3.6-5.0 N code = K) CHLORIDE (test 99 mmol/L 101-111 L code = CL) CARBON DIOXIDE 26 mmol/L 21-31 N (test code = CO2) GLUCOSE (test code 115 mg/dl 70-100 H = GLU) BLOOD UREA 13 mg/dl 6-20 N NITROGEN (test code = BUN) GLOMERULAR >=60 max >60 The estimated FILTRATION RATE estimate glomerular (test code = GFR) filtration rate is computed usingpatient ra ce, age (>18), sex, and serum creatinin e. If anyof the neede d data elements a re missing the Laboratory mary ot compute an estimation of t he glomerular filtration rate . CREATININE (test 1.02 mg/dL 0.64-1.27 N code = CREAT) CALCIUM (test code 8.8 mg/dL 8.5-10.5 N = CA) UA RFLX MICR CULT IF [id number] 21:37:00 Test Item Value Reference Range Interpretation Comments UA COLOR (test code = YELLOW YELLOW COLU) UA APPEARANCE (test Clear CLEAR code = APPU) UA GLUCOSE DIPSTICK NEGATIVE NEGATIVE (test code = DGLUU) UA BILIRUBIN DIPSTICK NEGATIVE NEGATIVE (test code = BILU) UA KETONE DIPSTICK NEGATIVE NEGATIVE (test code = KETU) UA SPECIFIC GRAVITY 1.024 1.001-1.030 (test code = SGU) UA BLOOD DIPSTICK (test NEGATIVE NEGATIVE code = PAM) UA PH DIPSTICK (test 5.0 5.0-9.0 code = GLEN) UA PROTEIN DIPSTICK NEGATIVE NEGATIVE (test code = PROU) UA UROBILINOGEN 4.0 See_Comment A [Automated message] DIPSTICK (test code = The sy stem which URO) generated this result transmitted ref erence range: <=1.0. T he reference range was not used to int erpret this result as normal/abnormal . UA NITRITE DIPSTICK NEGATIVE NEGATIVE (test code = RIMA) UA ASCORBIC ACID NEGATIVE DIPSTICK (test code = AAU) UA LEUKOCYTE ESTERASE NEGATIVE NEGATIVE DIPSTICK (test code = LEUU) UA WBC (test code = 0-5 /HPF 0-5 WBCUR) UA RBC (test code = 0-5 /HPF 0-5 RBCU) UA EPITHELIAL CELLS None /LPF NONE-FEW (test code = EPIU) UA BACTERIA (test code None /HPF NONE SEEN = BACU) UA MUCUS (test code = 1+ /LPF NONE SEEN MUCU) Indication for culture: Dysuria/FrequencySpecimen Description: CLEAN CATCH CBC W/AUTO [id number] 06:51:00 Test Item Value Reference Range Interpretation Comments WHITE BLOOD CELL (test code = 11.4 x10 3/uL 3.2-11.5 N WBC) RED BLOOD CELL (test code = 2.00 x10(6)/m 4.20-5.70 L RBC) HEMOGLOBIN (test code = HGB) 9.0 g/dL 12.9-17.3 L HEMATOCRIT (test code = HCT) 24.9 % 38.7-51.0 L MEAN CELL VOLUME (test code = 125 fL 80-100 H MCV) MEAN CELL HGB (test code = MCH) 45.0 pg 26.7-33.3 H MEAN CELL HGB CONCENTRATION 36.1 g/dL 30.0-34.0 H (test code = MCHC) RED CELL DISTRIBUTION WIDTH 11.2 % 11.3-14.5 L (test code = RDW) PLATELET COUNT (test code = 281 x10 3/uL 130-408 N PLT) MEAN PLATELET VOLUME (test code 10.3 fL 8.6-12.6 N = MPV) NEUTROPHIL % (test code = NT%) 70.7 % 40.0-70.0 H LYMPHOCYTE % (test code = LY%) 17.5 % 20-40 L MONOCYTE % (test code = MO%) 9.5 % 1-10 N EOSINOPHIL % (test code = EO%) 1.1 % 0.0-5.0 N BASOPHIL % (test code = BA%) 0.4 % 0.0-1.0 N NUCLEATED RBC % (test code = 0.0 % 0.0-0.9 N NRBC%) NEUTROPHIL # (test code = NT#) 8.1 x10 3/uL 1.6-7.2 H LYMPHOCYTE # (test code = LY#) 2.00 x10 3/uL 1.1-2.7 N MONOCYTE # (test code = MO#) 1.1 x10 3/uL 0.3-0.8 H EOSINOPHIL # (test code = EO#) 0.1 x10 3/uL 0.0-0.5 N IMMATURE GRANULOCYTE % (test 0.8 % 0.0-2.0 N code = IG%) BASOPHIL # (test code = BA#) 0.0 x10 3/uL 0.0-0.1 N DIFFERENTIAL [id number] 06:51:00 Test Item Value Reference Range Interpretation Comments PLATELET MORPHOLOGY (test code = Normal NORMAL PLTMORPH) POLYCHROMASIA (test code = POLC) 1+ NONE SEEN A MACROCYTOSIS (test code = MACR) 2+ NONE SEEN A BASIC METABOLIC [id number] 04:48:00 Test Item Value Reference Range Interpretation Comments SODIUM (test code 133 mmol/L 135-145 L = NA) POTASSIUM (test 3.7 mmol/L 3.6-5.0 N code = K) CHLORIDE (test 98 mmol/L 101-111 L code = CL) CARBON DIOXIDE 26 mmol/L 21-31 N (test code = CO2) GLUCOSE (test code 112 mg/dl 70-100 H = GLU) BLOOD UREA 14 mg/dl 6-20 N NITROGEN (test code = BUN) GLOMERULAR >=60 max >60 The estimated FILTRATION RATE estimate glomerular (test code = GFR) filtration rate is computed usingpatient ra ce, age (>18), sex, and serum creatinin e. If anyof the neede d data elements a re missing the Laboratory mary ot compute an estimation of t he glomerular filtration rate . CREATININE (test 1.03 mg/dL 0.64-1.27 N code = CREAT) CALCIUM (test code 8.3 mg/dL 8.5-10.5 L = CA) BASIC METABOLIC [id number] 04:26:00 Test Item Value Reference Range Interpretation Comments SODIUM (test code 138 mmol/L 135-145 N = NA) POTASSIUM (test 3.3 mmol/L 3.6-5.0 L code = K) CHLORIDE (test 102 mmol/L 101-111 N code = CL) CARBON DIOXIDE 27 mmol/L 21-31 N (test code = CO2) GLUCOSE (test code 134 mg/dl 70-100 H = GLU) BLOOD UREA 11 mg/dl 6-20 N NITROGEN (test code = BUN) GLOMERULAR >=60 max >60 The estimated FILTRATION RATE estimate glomerular (test code = GFR) filtration rate is computed usingpatient ra ce, age (>18), sex, and serum creatinin e. If anyof the neede d data elements a re missing the Laboratory mary ot compute an estimation of t he glomerular filtration rate . CREATININE (test 1.00 mg/dL 0.64-1.27 N code = CREAT) CALCIUM (test code 8.4 mg/dL 8.5-10.5 L = CA) CBC W/AUTO [id number] 04:10:00 Test Item Value Reference Range Interpretation Comments WHITE BLOOD CELL (test code = 11.7 x10 3/uL 3.2-11.5 H WBC) RED BLOOD CELL (test code = 1.97 x10(6)/m 4.20-5.70 L RBC) HEMOGLOBIN (test code = HGB) 9.1 g/dL 12.9-17.3 L HEMATOCRIT (test code = HCT) 24.7 % 38.7-51.0 L MEAN CELL VOLUME (test code = 125 fL 80-100 H MCV) MEAN CELL HGB (test code = MCH) 46.2 pg 26.7-33.3 H MEAN CELL HGB CONCENTRATION 36.8 g/dL 30.0-34.0 H (test code = MCHC) RED CELL DISTRIBUTION WIDTH 11.7 % 11.3-14.5 N (test code = RDW) PLATELET COUNT (test code = 276 x10 3/uL 130-408 N PLT) MEAN PLATELET VOLUME (test code 10.6 fL 8.6-12.6 N = MPV) NEUTROPHIL % (test code = NT%) 69.2 % 40.0-70.0 N LYMPHOCYTE % (test code = LY%) 19.6 % 20-40 L MONOCYTE % (test code = MO%) 8.3 % 1-10 N EOSINOPHIL % (test code = EO%) 1.5 % 0.0-5.0 N BASOPHIL % (test code = BA%) 0.3 % 0.0-1.0 N NUCLEATED RBC % (test code = 0.0 % 0.0-0.9 N NRBC%) NEUTROPHIL # (test code = NT#) 8.1 x10 3/uL 1.6-7.2 H LYMPHOCYTE # (test code = LY#) 2.28 x10 3/uL 1.1-2.7 N MONOCYTE # (test code = MO#) 1.0 x10 3/uL 0.3-0.8 H EOSINOPHIL # (test code = EO#) 0.2 x10 3/uL 0.0-0.5 N IMMATURE GRANULOCYTE % (test 1.1 % 0.0-2.0 N code = IG%) BASOPHIL # (test code = BA#) 0.0 x10 3/uL 0.0-0.1 N - CT L-SPINE [id number] 17:48:00 [facility] HERBJEZ VEGA : 1965 Sex: MPatient Name: HERB AVENDANO Unit No: [id number] EXAMS: CPT: [id number] CT L-SPINE W/CONTRAST [id number] STUDY: CT of the lumbar spine with contrast. CLINICAL HISTORY: post op with right leg numbness TECHNIQUE: Multiple axial CT images of the lumbar spine with 100 mL Isovue-300 IV contrast. Coronal and sagittal reformatted images werealso generated for interpretation. CT radiation dose optimization is achieved for thisexamination by the use of a CT protocol in accordance with ACR practice guidelines and adherence to photo optics technician recommendations. CT DLP: 1289 mGy-cm COMPARISON:None FINDINGS: There are 5 nonrib-bearing lumbar vertebrae. Preserved lumbar lordotic curvature. No evidence of acute compression fracture or posterior elementfracture. Prior discectomy at L4-L5 and L5-S1, laminectomies at L4 and L5, and posterior instrumented fusion from L4 through S1. The fusion hardware appears intact and in good position. Paraspinal bone grafts are also present around the fusion rods. Postsurgical softtissue swelling mixed with some emphysema at the level of the surgery. There is no worrisome collection in the area. Level by level evaluation: T11-T12: No discbulge calcification. Ligamentum flavum thickening/calcification that result in mild posterior thecal sac effacement. Patent foramina. T12-L1: No disc bulge/herniation or degenerative change. Patent canal and foramina. L1-L2: No disc bulge/herniation or degenerative change. Patent canal and foramina. L2-L3: No disc bulge/herniation. Mild ligament flavum thickening and calcification. Patent canal and foramina. L3-L4: No disc bulge/herniation or significant degenerative changes. Patent canal and foramina. L4-L5: Post discectomy and surgical fusion. There is bone graft material in the left lateral canal space and also and left foramen that causes mild to moderate left foraminal stenosis and possibly mild canal stenosis. The right foramen is patent. L5-S1: Mild residual endplate marginal osteophytes and facet arthrosis that appears to cause mild to moderate bilateral frontal stenosis worse on the right. The bony canal appears patent but the canal space Name: HERB AVENDANO JR [facility] Phys: Chip Alamo MD [address] [facility] : 1965 Age: 55 Sex: M [place], [place] [address] Loc: [id number] 1 Exam Date: 06/22/2021 Status: ADM IN PH: FAX: PAGE 1 Signed Report (CONTINUED) Patient Name: JUAN ALBERTOHERB JR Unit No: [id number] EXAMS: CPT: [id number] CT L-SPINE W/CONTRAST [id number] <Continued> evaluation is limited due tostreak artifact created by fusion hardware. Moderate bilateral SI joint degenerative changes. IMPRESSION: 1. Post discectomy and posterior surgical fusion at L4-L5 and L5-S1 as detailed above. There is some bone graft material and left lateral aspect of the canal space and foramen at L4-L5, which appears to cause mild to moderate left foraminal stenosis and possibly mild canal stenosis. 2. Mild to moderateforaminal stenosis at L5-S1 worse on the right secondary to residual endplate marginal osteophytes and facet arthrosis. at 1748 Reported and signed by: VIELKA VORA MD CC: Chip Spear MD Technologist: Lilo Simental CTDI: 24.97 DLP: 1289.08Trscr Dt/Tm: 06/22/2021 (1748) by:Kika Orig Print D/T: S: 06/22/2021 (0725) BATCH NO: N/A Name: HERB AVENDANO [facility] Phys: Chip Alamo MD [address] [facility] : 1965 Age: 55 Sex: M [place], [place] [address] Loc: N.[id number] 1 Exam Date: 06/22/2021 Status: ADM IN PH: FAX: PAGE 2 Signed ReportCBC W/AUTO [id number] 15:08:00 Test Item Value Reference Range Interpretation Comments WHITE BLOOD CELL (test code = 9.4 x10 3/uL 3.2-11.5 WBC) RED BLOOD CELL (test code = 2.02 x10(6)/m 4.20-5.70 L RBC) HEMOGLOBIN (test code = HGB) 9.2 g/dL 12.9-17.3 L HEMATOCRIT (test code = HCT) 25.8 % 38.7-51.0 L MEAN CELL VOLUME (test code = 128 fL 80-100 H MCV) MEAN CELL HGB (test code = MCH) 45.5 pg 26.7-33.3 H MEAN CELL HGB CONCENTRATION 35.7 g/dL 30.0-34.0 H (test code = MCHC) RED CELL DISTRIBUTION WIDTH 11.7 % 11.3-14.5 N (test code = RDW) PLATELET COUNT (test code = 281 x10 3/uL 130-408 N PLT) MEAN PLATELET VOLUME (test code 10.5 fL 8.6-12.6 N = MPV) NEUTROPHIL % (test code = NT%) 70.5 % 40.0-70.0 H IMMATURE GRANULOCYTE % (test 0.9 % 0.0-2.0 N code = IG%) LYMPHOCYTE % (test code = LY%) 20.5 % 20-40 N MONOCYTE % (test code = MO%) 7.5 % 1-10 N EOSINOPHIL % (test code = EO%) 0.4 % 0.0-5.0 N BASOPHIL % (test code = BA%) 0.2 % 0.0-1.0 N NUCLEATED RBC % (test code = 0.0 % 0.0-0.9 N NRBC%) NEUTROPHIL # (test code = NT#) 6.6 x10 3/uL 1.6-7.2 N LYMPHOCYTE # (test code = LY#) 1.92 x10 3/uL 1.1-2.7 N MONOCYTE # (test code = MO#) 0.7 x10 3/uL 0.3-0.8 N EOSINOPHIL # (test code = EO#) 0.0 x10 3/uL 0.0-0.5 N BASOPHIL # (test code = BA#) 0.0 x10 3/uL 0.0-0.1 N DIFFERENTIAL [id number] 15:08:00 Test Item Value Reference Range Interpretation Comments PLATELET MORPHOLOGY (test code = Normal NORMAL PLTMORPH) MACROCYTOSIS (test code = MACR) 3+ NONE SEEN A BASIC METABOLIC [id number] 14:47:00 Test Item Value Reference Range Interpretation Comments SODIUM (test code 135 mmol/L 135-145 N = NA) POTASSIUM (test 3.9 mmol/L 3.6-5.0 N code = K) CHLORIDE (test 102 mmol/L 101-111 N code = CL) CARBON DIOXIDE 25 mmol/L 21-31 N (test code = CO2) GLUCOSE (test code 119 mg/dl 70-100 H = GLU) BLOOD UREA 15 mg/dl 6-20 N NITROGEN (test code = BUN) GLOMERULAR >=60 max >60 The estimated FILTRATION RATE estimate glomerular (test code = GFR) filtration rate is computed usingpatient ra ce, age (>18), sex, and serum creatinin e. If anyof the neede d data elements a re missing the Laboratory mary ot compute an estimation of t he glomerular filtration rate . CREATININE (test 1.03 mg/dL 0.64-1.27 N code = CREAT) CALCIUM (test code 8.1 mg/dL 8.5-10.5 L = CA) CBC W/AUTO [id number] 19:00:00 Test Item Value Reference Range Interpretation Comments WHITE BLOOD CELL (test code = 5.6 x10 3/uL 3.2-11.5 N WBC) RED BLOOD CELL (test code = 2.40 x10(6)/m 4.20-5.70 L RBC) HEMOGLOBIN (test code = HGB) 10.9 g/dL 12.9-17.3 L HEMATOCRIT (test code = HCT) 30.2 % 38.7-51.0 L MEAN CELL VOLUME (test code = 126 fL 80-100 H MCV) MEAN CELL HGB (test code = MCH) 45.4 pg 26.7-33.3 H MEAN CELL HGB CONCENTRATION 36.1 g/dL 30.0-34.0 H (test code = MCHC) RED CELL DISTRIBUTION WIDTH 12.1 % 11.3-14.5 N (test code = RDW) PLATELET COUNT (test code = 355 x10 3/uL 130-408 N PLT) MEAN PLATELET VOLUME (test code 10.6 fL 8.6-12.6 N = MPV) NEUTROPHIL % (test code = NT%) 47.8 % 40.0-70.0 N IMMATURE GRANULOCYTE % (test 1.3 % 0.0-2.0 N code = IG%) LYMPHOCYTE % (test code = LY%) 39.0 % 20-40 N MONOCYTE % (test code = MO%) 7.5 % 1-10 N EOSINOPHIL % (test code = EO%) 3.9 % 0.0-5.0 N BASOPHIL % (test code = BA%) 0.5 % 0.0-1.0 N NUCLEATED RBC % (test code = 0.0 % 0.0-0.9 N NRBC%) NEUTROPHIL # (test code = NT#) 2.7 x10 3/uL 1.6-7.2 N LYMPHOCYTE # (test code = LY#) 2.17 x10 3/uL 1.1-2.7 N MONOCYTE # (test code = MO#) 0.4 x10 3/uL 0.3-0.8 N EOSINOPHIL # (test code = EO#) 0.2 x10 3/uL 0.0-0.5 N BASOPHIL # (test code = BA#) 0.0 x10 3/uL 0.0-0.1 N PLATELET ESTIMATE (test code = ADEQUATE ADEQUATE PLTEST) DIFFERENTIAL [id number] 19:00:00 Test Item Value Reference Range Interpretation Comments PLATELET MORPHOLOGY (test code = Normal NORMAL PLTMORPH) MACROCYTOSIS (test code = MACR) 2+ NONE SEEN A PROTHROMBIN [id number] 16:30:00 Test Item Value Reference Range Interpretation Comments PROTHROMBIN TIME 11.8 SECONDS 10.7-13.1 N PATIENT (test code = PTP) INTERNATIONAL NORMAL 1.0 The INR is to be RATIO (test code = used only for INR) monitoring oral anticoagulantth erap y. INDICATION IN R VALUE ---- ---- ---- --------1. Prophylaxis, de ep venous thrombos is, 2.0 - 2.5 including high-risk surgery.2. Prophylaxis, de ep venous thrombos is, 2.0 - 3.0 hip surgery, treatment for d eep venous thromb osis or pulmonary prevention of systemic emboli sm in patients wit h valvular heart disease, atrial fibrillation, tissue heart va lve, or acute myocar dial infarction.3. Mechanical prosthesis hear t valves, 3.0 - 4.5 recurrent syste anson embolism. THROMBOPLASTIN TIME [id number] 16:30:00 Test Item Value Reference Range Interpretation Comments THROMBOPLASTIN TIME PARTIAL (test 30 SECONDS 25-38 N code = PTT) BASIC METABOLIC [id number] 16:29:00 Test Item Value Reference Range Interpretation Comments SODIUM (test code 134 mmol/L 135-145 L = NA) POTASSIUM (test 3.8 mmol/L 3.6-5.0 N code = K) CHLORIDE (test 101 mmol/L 101-111 N code = CL) CARBON DIOXIDE 26 mmol/L 21-31 N (test code = CO2) GLUCOSE (test code 98 mg/dl 70-100 N = GLU) BLOOD UREA 17 mg/dl 6-20 N NITROGEN (test code = BUN) GLOMERULAR >=60 max >60 The estimated FILTRATION RATE estimate glomerular (test code = GFR) filtration rate is computed usingpatient ra ce, age (>18), sex, and serum creatinin e. If anyof the neede d data elements a re missing the Laboratory mary ot compute an estimation of t he glomerular filtration rate . CREATININE (test 0.90 mg/dL 0.64-1.27 N code = CREAT) CALCIUM (test code 8.5 mg/dL 8.5-10.5 N = CA) URINALYSIS [id number] 16:27:00 Test Item Value Reference Range Interpretation Comments UA COLOR (test code = YELLOW YELLOW COLU) UA APPEARANCE (test Clear CLEAR code = APPU) UA GLUCOSE DIPSTICK NEGATIVE NEGATIVE (test code = DGLUU) UA BILIRUBIN DIPSTICK NEGATIVE NEGATIVE (test code = BILU) UA KETONE DIPSTICK NEGATIVE NEGATIVE (test code = KETU) UA SPECIFIC GRAVITY 1.019 1.001-1.030 (test code = SGU) UA BLOOD DIPSTICK (test NEGATIVE NEGATIVE code = PAM) UA PH DIPSTICK (test 5.0 5.0-9.0 code = GLEN) UA PROTEIN DIPSTICK NEGATIVE NEGATIVE (test code = PROU) UA UROBILINOGEN 2.0 See_Comment A [Automated message] DIPSTICK (test code = The sy stem which URO) generated this result transmitted ref erence range: <=1.0. T he reference range was not used to int erpret this result as normal/abnormal . UA NITRITE DIPSTICK NEGATIVE NEGATIVE (test code = RIMA) UA ASCORBIC ACID NEGATIVE DIPSTICK (test code = AAU) UA LEUKOCYTE ESTERASE NEGATIVE NEGATIVE DIPSTICK (test code = LEUU) UA WBC (test code = 0-5 /HPF 0-5 WBCU) UA RBC (test code = 0-5 /HPF 0-5 RBCU) UA EPITHELIAL CELLS None /LPF NONE-FEW (test code = EPIU) UA BACTERIA (test code None /HPF NONE SEEN = BACU) UA MUCUS (test code = 1+ /LPF NONE SEEN MUCU) - XR CHEST 2 [id number] 15:57:00 [facility] 1965 Sex: MPatient Name: HERB AVENDANO JR Unit No: [id number] EXAMS: CPT: [id number] XR CHEST 2 V 17431 CHEST 2 VIEWS. HISTORY: PRE-OP COMPARISON: none FINDINGS: The lungs are well aerated and clear. The cardiomediastinal silhouette is normal. No pleural effusion is seen. Bony thorax is unremarkable. IMPRESSION: No acute abnormality is detected. at 1557 Reported and signed by: Benedict Haile MD CC: Chip Spear MD Technologist: Cody Chopra Fluoro Time: DAP (Gy m2): Air Kerma (mGy): Trscr Dt/Tm: 06/18/2021 (1557) by:[email or web address] Orig Print D/T: S: 06/18/2021 (1600) BATCH NO: N/A Name:HERB AVENDANO JR [facility] Phys: Chip Alamo MD [address] [facility] [facility] : 1965 Age: 55 Sex: M [place], [place] [address] Loc: N.SRG Exam Date: 06/18/2021 Status: PRE IN PH: FAX: PAGE 1 Signed Rep ortCOVID 19 Asymptomatic IH [id number] 14:48:00 Test Item Value Reference Range Interpretation Comments COVID 19 Asymptomatic Negative Negative Negati ve results should IH AG (test code = be treate d as COVNONPUIAG) presumptive andconfirmed wi th a molecular assay , if necessary for patientmanageme nt. Negative result s do not rule out COVID- 19 andshould not b e used as the sole bas is for treatment orpat ient management deci sions, including infec tion controldecision s. Negative result s should be considered i n thecontext of a patient's recen t exposures, hist ory and thepresence of clnical signs and sympt oms consistent withCOVID-19.Sp ecimen Source: Nasopha ryngeal ([employer]ANEL IN[employer]UMENT REPA[employer]ER) Swab
[2021-10-09 00:43] LABS: Albumin 3.5 g/dL (3.4-5.0); Bilirubin Direct 0.2 mg/dL (0-0.2); Bilirubin Total 0.9 mg/dL (0.2-1.0); Potassium 3.3 mmol/L (3.5-5.1); Protein, Total 6.3 g/dL (6.4-8.2)
[2021-10-09] MEDS ORDERED: MORPHINE 4 MG/ML SYR ONE ×2 (01:40→04:16)
[2021-10-09] MEDS ORDERED: NA CHLORIDE 0.9% 1,000 ML ONE (01:41)
[2021-10-09] MEDS ORDERED: ONDANSETRON 4 MG/2 ML VIAL ONE (01:41)
[2021-10-09 02:02] LABS: Urine Blood Negative (Negative); Urine Glucose Negative (Negative); Urine Protein Negative (Negative); Urine Specific Gravity 1.025 (1.005-1.030)
[2021-10-09 02:06] LABS: Absolute Lymphocytes (CBC) 1.3 K/uL (0.7-4.9); Hematocrit 27.3 % (39.6-49.0); Lymphocytes % 31.2 % (15.3-44.8); MPV 8.7 fL (7.6-11.3); RBC Red Blood Cell Count 2.46 M/uL (4.33-5.43)
[2021-10-09 02:29] LABS: Blood Morphology Comment NOTED (NOT SEEN); Macrocytosis 1+; Platelet Estimate ADEQ; White Blood Cell Scan OK (OK)
--- NOTE | 2021-10-09 02:52 | ER ---
Nurse's Notes [facility] Name: Yash Carreon Jr Age: 56 yrs Sex: Male : 1965 Arrival Date: 10/08/2021 Time: 22:53 Bed 2 Private MD: Diagnosis: Fall on same level, unspecified;Strain of muscle, fascia and tendon of abdomen, lower back and pelvis;Low back pain;Retention of urine, unspecified-500 CC / PVR;Spinal stenosis, cervical region Presentation: 10/08 22:56 Chief complaint: EMS states: Pt was standing and began to feel weak in his legs. He jb4 slid himself to the floor. Had a recent L4-L5 back surgery. Report feeling numbness in both legs that has been present before the surgery. Reports pain that feels like a pulled muscle from his right thigh to his right shoulder blade. He has an 18g in the RAC, and was given 100mcg of Fentanyl, and 4mg of zofran. Coronavirus screen: At this time, the client does not indicate any symptoms associated with coronavirus-19. Ebola Screen: No symptoms or risks identified at this time. Initial Sepsis Screen: Does the patient meet any 2 criteria? Yes Does the patient have a suspected source of infection? No. Patient's initial sepsis screen is negative. Risk Assessment: Do you want to hurt yourself or someone else? Patient reports no desire to harm self or others. Onset of symptoms was October 08, 2021. Transition of care: patient was not received from another setting of care. 22:56 Method Of Arrival: EMS: [facility] jb4 22:56 Acuity: JAYESH 3 jb4 Historical: - Allergies: 23:00 Tetanus-Diphtheria Toxoids-Td; jb4 - Home Meds: 23:08 naproxen 500 mg Oral tab 1 tab 2 times per day [Active]; gabapentin 300 mg oral cap 1 jb4 cap twice a day [Active]; tizanidine 4 mg oral cap 1 cap 3 times per day [Active]; hydrocodone-acetaminophen 5-325 mg Oral tab 1 tab three times a day [Active]; fluoxetine 10 mg Oral cap 1 cap once daily [Active]; - PMHx: 23:00 Lactose intolerance; hernia; jb4 - PSHx: 23:00 back surgery; hernia repair; jb4 - Immunization history:: Adult Immunizations not up to date. - Social history:: Smoking status: Patient denies any tobacco usage or history of. Patient/guardian denies using alcohol, street drugs. - Family history:: not pertinent. Screenin:12 Abuse screen: Denies threats or abuse. Nutritional screening: No deficits noted. jb4 Tuberculosis screening: No symptoms or risk factors identified. Fall Risk Fall in past 12 months (25 points). IV access (20 points). Gait- Impaired (20 pts.). Total Garcia Fall Scale indicates High Risk Score (45 or more points). Fall prevention measures have been instituted. Side Rails Up X 2 Placed Close to Nursing Station Frequent Obs/Assessments Occuring Family Present and informed to notify staff if the need to leave the bedside As available patient and family educated on Fall Prevention Program and Strategies. Assessment: 23:02 General: Appears in no apparent distress. uncomfortable, Behavior is calm, cooperative, jb4 appropriate for age. Pain: Complains of pain in right quadriceps Pain radiates to right scapular area Pain currently is 7 out of 10 on a pain scale. Quality of pain is described as Pulled muscle. Neuro: Level of Consciousness is awake, alert, obeys commands, Oriented to person, place, time, situation, Reports numbness in KRISTA legs, present prior to back surgery. Cardiovascular: Patient's skin is warm and dry. Respiratory: Airway is patent Respiratory effort is even, unlabored, Respiratory pattern is regular, symmetrical. GI: No signs and/or symptoms were reported involving the gastrointestinal system. : No signs and/or symptoms were reported regarding the genitourinary system. EENT: No signs and/or symptoms were reported regarding the EENT system. Derm: Skin is intact, Skin is pink, warm \T\ dry. Musculoskeletal: Circulation, motion, and sensation intact. Range of motion: intact in all extremities. 10/09 01:15 Reassessment: Patient appears in no apparent distress at this time. Patient and/or jb4 family updated on plan of care and expected duration. Pain level reassessed. Patient is alert, oriented x 3, equal unlabored respirations, skin warm/dry/pink. Pt back from CT. 01:40 Reassessment: Pt reports wanting to urinate, has been unable to urinate for the past jb4 several hours, now feels his bladder is distended. Provider notified, received verbal order to cath pt. 01:58 Reassessment: 16fr downing in place. Approx. 500ml or kyung urine drained. 4 03:00 Reassessment: Patient appears in no apparent distress at this time. Patient and/or jb4 family updated on plan of care and expected duration. Pain level reassessed. Patient is alert, oriented x 3, equal unlabored respirations, skin warm/dry/pink. 04:20 Reassessment: Patient appears in no apparent distress at this time. Patient and/or jb4 family updated on plan of care and expected duration. Pain level reassessed. Patient is alert, oriented x 3, equal unlabored respirations, skin warm/dry/pink. Still maintains movement and sensation in lower extremities, continues to have pain with movement and numbness. Vital Signs: 10/08 22:56 BP 152 / 80; Pulse 62; Resp 16; Temp 97.7; Pulse Ox 100% on R/A; Weight 70.31 kg; jb4 Height 5 ft. 9 in. (175.26 cm) (R); Pain 7/10; 10/09 02:00 BP 127 / 70; Pulse 63; Resp 16; Pulse Ox 100% on R/A; jb4 03:00 BP 126 / 75; Pulse 67; Resp 18; Pulse Ox 100% on R/A; jb4 04:00 BP 143 / 82; Pulse 76; Resp 16; Pulse Ox 100% ; jb4 10/08 22:56 Body Mass Index 22.89 (70.31 kg, 175.26 cm) [facility] ED Course: 10/08 22:53 Patient arrived in ED. mw2 22:56 Clark Alex, RN is Primary Nurse. 4 23:00 Triage completed. 4 23:00 Arm band placed on right wrist. 4 23:00 Patient has correct armband on for positive identification. Bed in low position. Call [facility] light in reach. Side rails up X 1. Client placed on continuous cardiac and pulse oximetry monitoring. NIBP monitoring applied. 23:14 Francisco Javier Lovett MD is Attending Physician. [facility] 10/09 00:05 T\T\S collected, blood band applied to patient. ds4 00:52 XRAY Pelvis In Process Unspecified. EDMS 00:52 Femur Right XRAY In Process Unspecified. EDMS 00:52 Foot Left 3 View XRAY In Process Unspecified. EDMS 00:52 Ankle Left 3 View XRAY In Process Unspecified. EDMS 00:52 Ankle Right 3 View XRAY In Process Unspecified. EDMS 01:28 CT Traumagram (Head C Spine CAP W Con) In Process Unspecified. EDMS 02:[address] Spear the Orthopedic surgeon in the [place]. mw2 03:01 intiated a transfer with Jacqueline Doshi from [facility]. mw2 03:10 administrative approval given by Jacqueline Doshi/ patient has been accepted to [address] to the ER/ Dr. Gasca accepted the patient in transfer/report to be called to [phone]. 04:24 No provider procedures requiring assistance completed. Patient transferred, IV remains jb4 in place. Administered Medications: 01:20 Drug: NS 0.9% 1000 ml Route: IV; Rate: 1 bolus; Site: right antecubital; jb4 04:17 Follow up: Response: No adverse reaction; IV Status: Infusion continued upon transfer jb4 01:20 Drug: morphine 4 mg Route: IVP; Site: right antecubital; jb4 01:50 Follow up: Response: No adverse reaction; Marked relief of symptoms jb4 01:20 Drug: Zofran (Ondansetron) 4 mg Route: IVP; Site: right antecubital; jb4 01:50 Follow up: Response: No adverse reaction; Marked relief of symptoms jb4 04:16 Drug: morphine 4 mg Route: IVP; Site: right antecubital; jb4 04:24 Follow up: Response: No adverse reaction jb4 Outcome: 02:52 ER care complete, transfer ordered by MD. shen 04:24 Transferred by ground EMS to [facility], Transfer form completed. X-rays sent jb4 w/ patient. 04:24 Condition: stable 04:24 Discharge instructions given to patient, Instructed on the need for transfer, Demonstrated understanding of instructions. 04:24 Patient left the ED. jb4 Signatures: Dispatcher [employer] Francisco Javier Adams MD MD cha Swanson, Donovan ds4 Clark Alex, NAIMA RN jb4 Doris Alcala mw2
--- NOTE | 2021-10-09 02:53 | EDPHYS ---
Physician Documentation [facility] Name: Yash Carreon Jr Age: 56 yrs Sex: Male : 1965 Arrival Date: 10/08/2021 Time: 22:53 Bed 2 Private MD: ED Physician Francisco Javier Lovett HPI: 10/08 23:39 This 56 yrs old Male presents to ER via EMS with complaints of fall right ac sided pain, hip , chest. 23:39 The patient or guardian reports an injury, pain. sustained from a fall, There is no ac obvious deformity, The patient is able to ambulate with assistance. The patient is able to bear partial body weight. The complaints affect the right femoral area and right hip. Historical: - Allergies: 23:00 Tetanus-Diphtheria Toxoids-Td; jb4 - Home Meds: 23:08 naproxen 500 mg Oral tab 1 tab 2 times per day [Active]; gabapentin 300 mg oral cap 1 jb4 cap twice a day [Active]; tizanidine 4 mg oral cap 1 cap 3 times per day [Active]; hydrocodone-acetaminophen 5-325 mg Oral tab 1 tab three times a day [Active]; fluoxetine 10 mg Oral cap 1 cap once daily [Active]; - PMHx: 23:00 Lactose intolerance; hernia; jb4 - PSHx: 23:00 back surgery; hernia repair; jb4 - Immunization history:: Adult Immunizations not up to date. - Social history:: Smoking status: Patient denies any tobacco usage or history of. Patient/guardian denies using alcohol, street drugs. - Family history:: not pertinent. ROS: 23:39 Constitutional: Negative for fever, chills, and weight loss, Eyes: Negative for injury, ac pain, redness, and discharge, ENT: Negative for injury, pain, and discharge, Neck: Negative for injury, pain, and swelling, Cardiovascular: Negative for chest pain, palpitations, and edema, Respiratory: Negative for shortness of breath, cough, wheezing, and pleuritic chest pain, Abdomen/GI: Negative for abdominal pain, nausea, vomiting, diarrhea, and constipation, Back: Negative for injury and pain, : Negative for injury, bleeding, discharge, and swelling, Skin: Negative for injury, rash, and discoloration, Neuro: Negative for headache, weakness, numbness, tingling, and seizure, Psych: Negative for depression, anxiety, suicide ideation, homicidal ideation, and hallucinations, Allergy/Immunology: Negative for hives, rash, and allergies, Endocrine: Negative for neck swelling, polydipsia, polyuria, polyphagia, and marked weight changes, Hematologic/Lymphatic: Negative for swollen nodes, abnormal bleeding, and unusual bruising. 23:39 MS/extremity: Positive for decreased range of motion, pain, swelling, tenderness. Exam: 23:39 Constitutional: This is a well developed, well nourished patient who is awake, alert, ac and in no acute distress. Head/Face: Normocephalic, atraumatic. Eyes: Pupils equal round and reactive to light, extra-ocular motions intact. Lids and lashes normal. Conjunctiva and sclera are non-icteric and not injected. Cornea within normal limits. Periorbital areas with no swelling, redness, or edema. ENT: Nares patent. No nasal discharge, no septal abnormalities noted. Tympanic membranes are normal and external auditory canals are clear. Oropharynx with no redness, swelling, or masses, exudates, or evidence of obstruction, uvula midline. Mucous membranes moist. Neck: Trachea midline, no thyromegaly or masses palpated, and no cervical lymphadenopathy. Supple, full range of motion without nuchal rigidity, or vertebral point tenderness. No Meningismus. Chest/axilla: Normal chest wall appearance and motion. Nontender with no deformity. No lesions are appreciated. Cardiovascular: Regular rate and rhythm with a normal S1 and S2. No gallops, murmurs, or rubs. Normal PMI, no JVD. No pulse deficits. Respiratory: Lungs have equal breath sounds bilaterally, clear to auscultation and percussion. No rales, rhonchi or wheezes noted. No increased work of breathing, no retractions or nasal flaring. Abdomen/GI: Soft, non-tender, with normal bowel sounds. No distension or tympany. No guarding or rebound. No evidence of tenderness throughout. Back: No spinal tenderness. No costovertebral tenderness. Full range of motion. Male : Normal genitalia with no discharge or lesions. Skin: Warm, dry with normal turgor. Normal color with no rashes, no lesions, and no evidence of cellulitis. Neuro: Awake and alert, GCS 15, oriented to person, place, time, and situation. Cranial nerves II-XII grossly intact. Motor strength 5/5 in all extremities. Sensory grossly intact. Cerebellar exam normal. Normal gait. Psych: Awake, alert, with orientation to person, place and time. Behavior, mood, and affect are within normal limits. 23:39 Musculoskeletal/extremity: ROM: no acute changes, Pulses: are normal with no appreciated deficits, Sensation intact. Tingling of extremity. numbness. Vital Signs: 22:56 BP 152 / 80; Pulse 62; Resp 16; Temp 97.7; Pulse Ox 100% on R/A; Weight 70.31 kg; jb4 Height 5 ft. 9 in. (175.26 cm) (R); Pain 12/07; 10/09 02:00 BP 127 / 70; Pulse 63; Resp 16; Pulse Ox 100% on R/A; jb4 03:00 BP 126 / 75; Pulse 67; Resp 18; Pulse Ox 100% on R/A; jb4 04:00 BP 143 / 82; Pulse 76; Resp 16; Pulse Ox 100% ; 4 10/08 22:56 Body Mass Index 22.89 (70.31 kg, 175.26 cm) [facility] MDM: 10/08 23:14 Patient medically screened. [facility] 23:42 Differential diagnosis: hip fracture, intertrochanteric fracture, femoral neck ac fracture, femoral shaft fracture, bursitis, arthritis, strain. Differential diagnosis: closed head injury, contusion, fracture, laceration, multiple trauma, sprain. Data reviewed: vital signs, nurses notes, lab test result(s), radiologic studies, CT scan, plain films. Data interpreted: bus monitor: rate is 62 beats/min, rhythm is regular, Pulse oximetry: on room air is 100 %. Test interpretation: by ED physician or midlevel provider: plain radiologic studies. Counseling: I had a detailed discussion with the patient and/or guardian regarding: the historical points, exam findings, and any diagnostic results supporting the discharge/admit diagnosis, lab results, radiology results. 10/09 03:22 ED course: COULD NOT REACH DR LONGORIA PT WANTS JOANNA SECOND CHOICE, I AGREE IN [facility] LIGHT OF TRAUMA. 10/08 23:39 Order name: Basic Metabolic Panel; Complete Time: 02:49 [facility] 10/08 23:39 Order name: CBC with Diff; Complete Time: 02:49 [facility] 10/08 23:39 Order name: Type And Screen [facility] 10/08 23:39 Order name: LFT's; Complete Time: 02:49 [facility] 10/08 23:39 Order name: Lipase; Complete Time: 02:49 [facility] 10/09 02:02 Order name: Urine Dipstick-Ancillary; Complete Time: 02:49 [facility] 10/08 23:39 Order name: CT Traumagram (Head C Spine CAP W Con) [facility] 10/08 23:39 Order name: XRAY Pelvis [facility] 10/08 23:39 Order name: Femur Right XRAY [facility] 10/08 23:39 Order name: Foot Left 3 View XRAY [facility] 10/08 23:39 Order name: Ankle Left 3 View XRAY [facility] 10/08 23:39 Order name: Ankle Right 3 View XRAY [facility] 10/09 02:14 Order name: CBC Smear Scan; Complete Time: 02:49 ED[facility] 10/08 23:39 Order name: Labs collected and sent; Complete Time: 00:07 [facility] 10/08 23:39 Order name: Urine Dipstick-Ancillary (obtain specimen); Complete Time: 01:55 [facility] Administered Medications: 01:20 Drug: NS 0.9% 1000 ml Route: IV; Rate: 1 bolus; Site: right antecubital; jb4 04:17 Follow up: Response: No adverse reaction; IV Status: Infusion continued upon transfer jb4 01:20 Drug: morphine 4 mg Route: IVP; Site: right antecubital; jb4 01:50 Follow up: Response: No adverse reaction; Marked relief of symptoms jb4 01:20 Drug: Zofran (Ondansetron) 4 mg Route: IVP; Site: right antecubital; jb4 01:50 Follow up: Response: No adverse reaction; Marked relief of symptoms jb4 04:16 Drug: morphine 4 mg Route: IVP; Site: right antecubital; jb4 04:24 Follow up: Response: No adverse reaction jb4 Disposition Summary: 10/09/21 02:52 Transfer Ordered Transfer Location: [facility] Reason: Higher level of care ac Condition: Stable ac Problem: new ac Symptoms: are unchanged ac Accepting Physician: TO [facility] [place](10/09/21 04:24) jb4 Diagnosis - Fall on same level, unspecified ac - Strain of muscle, fascia and tendon of abdomen, lower back and pelvis ac - Low back pain ac - Retention of urine, unspecified - 500 CC / PVR ac - Spinal stenosis, cervical region ac Discharge Instructions: - Discharge Summary Sheet ac - Joint Pain ac - Acute Back Pain, Adult ac - Chronic Back Pain ac - Musculoskeletal Pain ac - Back Injury Prevention, Byri-ln-Ltar ac - Chronic Back Pain, Egos-xb-Szei ac - Hip Pain ac Forms: - Medication Reconciliation Form ac - SBAR form [facility] Prescriptions: - Ibuprofen 600 mg Oral Tablet - take 1 tablet by ORAL route every 6 hours As needed take with food; 30 tablet; ac Refills: 0, Product Selection Permitted - Cyclobenzaprine 5 mg Oral Tablet - take 1 tablet by ORAL route 3 times per day As needed; 15 tablet; Refills: 0, ac Product Selection Permitted - Tylenol-Codeine #3 300 mg-30 mg Oral - take 2 tablet by ORAL route every 6 hours; 20 tablet; Refills: 0, Product ac Selection Permitted Signatures: Dispatcher [employer] Francisco Javier Adams MD MD cha Attema, Lee, TITLE ONE TEACHER-C TITLE ONE TEACHER-Cla1 Clark Alex, RN RN jb4 Corrections: (The following items were deleted from the chart) 10/08 23:51 23:40 Hip Right 2 View+RAD.RAD.BRZ ordered. [facility] 10/09 02:54 02:52 TO [facility] ac 04:24 02:54 TO [facility] jb4
[2021-10-09 05:51] VITALS: TEMP 97.7; O2SAT 100
[2021-10-09 05:55] VITALS: BP 143/82
--- NOTE | 2021-10-09 14:18 | RAD REPORT ---
EXAM DESCRIPTION: CT - Head C Spine Alessio Norris - 10/09/2021 5:44 am CLINICAL HISTORY: 56 years, Male, full COMPARISON: 05/13/2021 FINDINGS: Multiple transaxial tomograms of the brain were obtained from the base of the skull to the vertex without contrast. 2-D multiplanar reformats and the coronal and sagittal plane were performed and reviewed. Multiple axial CT images through the cervical spine were obtained at 2 mm slice thickness at 2 mm int erval reconstruction. In addition 2-D multiplanar reformats and the sagittal coronal plane were perfo rmed and reviewed. Contrast-enhanced images of the chest, abdomen and pelvis were performed utilizing 5 mm slice thickne ss at 5 mm interval reconstruction from the lung apices to the ischial tuberosities after the adminis tration of IV contrast. This exam was performed according to our departmental dose-optimization protocol, which includes auto mated exposure control, adjustment of the mA and/or kV according to patient size and/or use of iterat cammie reconstruction technique. CT head: Brain parenchyma as well as the manuel and white matter differentiation demonstrate to be unre markable. There is no midline shift and/or mass effect. There is no evidence for acute hemorrhage. No focal areas of hypodensities. Lateral ventricles and cisterns displace normal appearance. No int ra or extra axial fluid collections were seen. The calvarium is intact with no evidence for fracture. The visualized portions of the paranasal sinuses and orbits demonstrate to be clear. CT C-spine: The alignment, vertebral body heights, and disc spaces are normal. There is no evidence of fracture or subluxation. There is degenerative disc disease with decreased intervertebral disc he ight, anterior spondylosis and posterior osteophyte complex at C5/C6 and C6/C7. There is significant spinal canal narrowing at C5/C6 measuring 5.8 mm in width on CT series #301 image 71/105. Neural fora jessica demonstrate to be unremarkable. There are uncovertebral degenerative changes C2-C6 especially al noris the right side. There is no prevertebral soft tissue swelling. Sagittal coronal reformatted harrison ges demonstrate no subluxation or bony abnormalities. CT chest: The lungs parenchyma demonstrate demonstrate to be clear. No masses and/or nodules are iden tified. There is no evidence for pneumothorax. The trachea mainstem bronchus demonstrate to be normal. There is no significant pleural and/or perica rdial effusions. The heart is normal in size. The aorta and great vessels demonstrate to be unremarkable. There is n o evidence for significant aneurysm/or thoracic aortic dissection. Incidentally is noted the presence of anatomical variants of origin of the left vertebral artery from the aortic arch. The central pulm onary arteries demonstrate to be normal. There is no significant mediastinal and/or hilar lymphadenopathy. The axillary regions demonstrate to be clear. The visualized portions of the clavicles, humeral heads, scapulas, bilateral ribs, sternum, thoracic spine demonstrate to be unremarkable. No evidence for fracture/or compression deformities. CT abdomen and pelvis: The liver demonstrated presence of a lateral segment left hepatic lobe cyst me asuring 1 cm on image 15/110. Otherwise the liver, gallbladder, pancreas, spleen and adrenal glands d emonstrate to be unremarkable, no focal lesions are noted. There is no evidence for solid organ injur y. The kidneys demonstrate normal uptake of contrast media. No evidence for nephrolithiasis and/or hydro nephrosis. There is no evidence for extravasation of contrast Grossly the unopacified stomach, small bowel and large bowel demonstrate to be within normal limits. There is no evidence for bowel dilatation/or free air. The appendix is is unremarkable. The urinary bladder demonstrate to be unremarkable. The prostate gland is normal. The aorta demon strate to be normal. There is no retroperitoneal lymphadenopathy. There is no evidence for ascites. There is no evidence for retroperitoneal hemorrhage. The bone windows demonstrate posterior transpedicular screw fixation device with laminectomy at L4-S1 . No evidence for compression deformities. Spinous process and transverse processes demonstrate to be unremarkable. Sacrum, bilateral iliac bone demonstrate to be unremarkable. Superior and inferior pub ic ramus demonstrate to be normal. Bilateral hip joints are normal. IMPRESSION: CT head: No evidence of acute intracranial pathology. CT C-spine: No evidence for fracture or subluxation. Degenerative disc disease at C5/C6 and C6/C7 with significant spinal canal narrowing at C5/C6 measuri ng 5.[address] chest: No evidence for acute traumatic injury to the chest. CT abdomen and pelvis: No evidence for solid organ injury. Posterior transpedicular screw fixation device with laminectomy at L4-S1. Electronically signed by: Neal Palma MD 10/09/2021 1:51 AM CDT Due to temporary technical issues with the PACS/Fluency reporting system, reports are being signed by the in house radiologists without review as a courtesy to insure prompt reporting. The interpreting radiologist is fully responsible for the content of the report.
--- NOTE | 2021-10-09 14:29 | RAD REPORT ---
EXAM DESCRIPTION: RAD - Foot Left 3 View - 10/09/2021 12:50 am CLINICAL HISTORY: 56 years, Male, PAIN COMPARISON: None FINDINGS: 3 X-ray views of the left foot (Frontal, lateral and oblique views) were performed. No acute bony injuries were demonstrated. No gross articular or soft tissue abnormality is identifi ed. There are no gross intraosseous lesions. No periosteal reaction were seen. IMPRESSION: Unremarkable left foot examination. Electronically signed by: Neal Palma MD 10/09/2021 1:01 AM CDT Due to temporary technical issues with the PACS/Fluency reporting system, reports are being signed by the in house radiologists without review as a courtesy to insure prompt reporting. The interpreting radiologist is fully responsible for the content of the report.
--- NOTE | 2021-10-09 14:32 | RAD REPORT ---
EXAM DESCRIPTION: RAD - Ankle Right 3 View - 10/09/2021 12:50 am CLINICAL HISTORY: 56 years, Male, PAIN COMPARISON: None FINDINGS: 3 X-ray views of the right and left ankle (frontal, lateral and oblique views) were perfor med. There is no evidence for fracture or dislocation. The ankle mortise is intact. There is no signif icant joint effusion. There are no gross intraosseous lesions. No gross soft tissue abnormality i s demonstrated. IMPRESSION: Unremarkable right and left ankle x-ray. Electronically signed by: Neal Palma MD 10/09/2021 1:03 AM CDT Due to temporary technical issues with the PACS/Fluency reporting system, reports are being signed by the in house radiologists without review as a courtesy to insure prompt reporting. The interpreting radiologist is fully responsible for the content of the report.
--- NOTE | 2021-10-09 14:37 | RAD REPORT ---
EXAM DESCRIPTION: RAD - Femur Right - 10/09/2021 12:50 am CLINICAL HISTORY: 56 years, Male, PAIN Femur Right COMPARISON: None. FINDINGS: 2 X-ray views of the Right femur were performed. There is no acute fracture or dislocation. There is no focal soft tissue swelling. There are no retained opaque foreign bodies. Limited evaluation of the knee dated the demonstrate no gross abnormalities. Very minimal early degen erative changes within the anterior superior aspect of the acetabulum. The bony pelvis is grossly normal in appearance. IMPRESSION: Very minimal early degenerative changes within the right acetabulum. Otherwise unremarka ble right femur. Electronically signed by: Neal Palma MD 10/09/2021 1:01 AM CDT Due to temporary technical issues with the PACS/Fluency reporting system, reports are being signed by the in house radiologists without review as a courtesy to insure prompt reporting. The interpreting radiologist is fully responsible for the content of the report.
--- NOTE | 2021-10-09 14:42 | RAD REPORT ---
EXAM DESCRIPTION: RAD - Pelvis - 10/09/2021 12:50 am CLINICAL HISTORY: 56 years, Male, PAIN COMPARISON: None. FINDINGS: 1 single frontal view of the pelvis was obtained. No areas of acute bony injuries were demonstrated. No gross soft tissue abnormality is identified. The pelvic brim is intact. There are no gross intraosseous lesions. No periosteal reaction were seen. Posterior transpedicular lumbar fusion lower lumbar spine. Minimal early degenerative changes bilateral hip joints along the superior anterior aspect of the acetabulum. Visualized gas pattern is nondiagnostic. No definitive displaced fracture are identified, if symptoms persist, clinical correlation and/or further evaluation with CT scan and/or MRI could be of assistance. IMPRESSION: Minimal early degenerative changes bilateral hip joints. No evidence for acute bony injuries. Electronically signed by: Neal Palma MD 10/09/2021 1:04 AM CDT Due to temporary technical issues with the PACS/Fluency reporting system, reports are being signed by the in house radiologists without review as a courtesy to insure prompt reporting. The interpreting radiologist is fully responsible for the content of the report.
== END 2021-10-09 04:24 | disposition short-term general hospital (02) ==
LOC: ER 22:50
DX: S39.012A Strain of muscle, fascia and tendon of lower back, initial encounter (principal); S39.011A Strain of muscle, fascia and tendon of abdomen, initial encounter; S39.013A Strain of muscle, fascia and tendon of pelvis, initial encounter; R33.9 Retention of urine, unspecified; M48.02 Spinal stenosis, cervical region; W18.30XA Fall on same level, unspecified, initial encounter; Z88.7 Allergy status to serum and vaccine
CPT/HCPCS: 96361; 85025; 80048; 36415; 86900; 86850; 86901; 80076; 81003; 83690; 70450; 72125; 71260; 74177; 72170; 73630; 73552; 73610 ×2; 96375; 96374; 99285; Q9967; J2405; J7030

== ENCOUNTER 2022-11-28 11:09 | Emergency (ER) | payer SELFPAY ==
--- OUTSIDE RECORDS SUMMARY | 2022-11-28 11:29 | XMS REPORT | Continuity of Care Document ---
:1965 Author Organization [facility] t Address [address] [place] [address] [address] [place] [address] Care Team Providers Name Role Phone Cruz Blackwell MD Primary Care Physician Nakia Sr Attending Clinician Nakia Sr MD Attending Clinician Carrie Diamond MD Attending Clinician Familia Caceres Attending Clinician Neal Flower Jr Attending Clinician Tony Albert Attending Clinician Tony Albert MD Attending Clinician Marguerite Guzman Attending Clinician Becky Munoz Attending Clinician BECKY MUNOZ Attending Clinician Unavailable SISSON_C Attending Clinician Unavailable Marguerite Guzman Attending Clinician Cruz Blackwell Attending Clinician Megan Gasca MD Attending Clinician Bee Meehan MA Attending Clinician Unavailable Girma Hernandez Attending Clinician [phone] Marguerite Guzman APRN Attending Clinician [phone] ANU ANDERSON Attending Clinician Unavailable Anu Anderson Attending Clinician LUIS MELÉNDEZ Attending Clinician Unavailable Megan Gasca Attending Clinician Meri Rosas Attending Clinician Unavailable Chip Spear Attending Clinician Unavailable DAVID_Nixon Admitting Clinician Unavailable MEGAN GASCA Admitting Clinician Unavailable Megan Gasca Admitting Clinician Meri Rosas Admitting Clinician Unavailable Chip Spear Admitting Clinician Unavailable Payers Payer Name Policy Type Policy Number Effective Date Ex[facility] Date [id number] 2021 SERVICES 00:00:00 Problems Condition Condition Condition Status Onset Resolution Last Treating Co mments Source Name Details Category Date Date Treatment Clinician Date URINE URINE Diagnosis Active 2022-11-12 Mem oria CULTURE CULTURE 11-09 22:36:00 l Active 00:00: [place] 11/09/2022 00 [facility] G82.52 G82.52 Diagnosis Active 2022-11-17 Me moria Active 10-31 07:54:00 l 10/31/2022 08:00: [place] [facility] 00 BOTOX BOTOX Diagnosis Active 2022-11-12 Mem oria Active 10-15 15:11:00 l 10/15/2022 00:00: [place] [facility] 00 IN PERSON IN PERSON Diagnosis Active 2022-11-02 Memoria EVAL - EVAL - 09-29 12:56:00 l REFERRED REFERRED 00:00: Gualberto pollard BY BY DR. Susy ALBERT Active 09/29/2022 [facility] NEUORGENIC NEUORGENI Diagnosis Active 2022-10-14 Memoria BLADDER, C BLADDER, 3- 13:46:00 l N31.9 N31.9 00:00: Marshall Active 00 08/24/2022 [facility] 2 MONTH 2 MONTH Diagnosis Active 2022-09-30 Memoria F/U F/U 07-08 11:21:00 l Active 00:00: [place] 07/08/2022 00 [facility] EVAL EVAL Diagnosis Active 2022-06-25 Mem oria CLINIC CLINIC 06-08 17:22:00 l WITH CARRI WITH CARRI 00:00: Herm fabien Active 00 06/08/2022 [facility] US US Diagnosis Active 2022-06-17 Mem oria Active 06-04 10:44:00 l 06/04/2022 00:00: Gualberto pollard [facility] 00 4 MONTH 4 MONTH Diagnosis Active 2022-09-30 Memoria F/U F/U Active 06-04 11:21:00 l 06/04/2022 00:00: Gualberto pollard [facility] 00 6 WEEK F/U 6 WEEK Diagnosis Active 2022-07-16 Memoria F/U Active 06-03 05:58:00 l 06/03/2022 00:00: Gualberto pollard [facility] 00 EMG - EMG - Diagnosis Active 2021-052022-06-17 Mem oria UPPER UPPER 07-06 11:08:00 l Active 00:00: Marshall 05/05/2022 00 [facility] G82.22 G82.22 Diagnosis Active 2021-052022-05-12 Me moria Active 06-11 10:56:00 l 04/11/2022 00:00: [facility]to [facility] 00 200 UNITS 200 UNITS Diagnosis Active 2021-052022-05-26 Memoria Active 06-08 13:38:00 l 04/08/2022 00:00: [place] [facility] 00 EVAL - EVAL - Diagnosis Active 2021-052022-08-24 Me moria REFERRED REFERRED 06-08 08:33:[address] De La Fuente BY DR. De La Fuente 00:00: Gualberto pollard Active 00 04/08/2022 [facility] R25.2, R25.2, Diagnosis Active 2022-08-31 Me moria M48.02 M48.02 01-02 13:25:00 l Active 08:00: [place] 01/02/2022 00 [facility] SPA SPA Diagnosis Active 2022-02-05 Mem oria Active 11-07 10:43:00 l 11/07/2021 00:00: Gualberto pollard [facility] 00 R25.2 R25.2 Diagnosis Active 2021-11-26 Mem oria Active 11-05 10:06:00 l 11/05/2021 00:00: Gualberto pollard [facility] 00 BACK PAIN BACK Diagnosis Active 2022-01-12 Memoria PAIN 11-04 12:04:00 l Active 00:00: Marshall 11/04/2021 00 [facility] LIFE LIFE Diagnosis Active 2022-01-21 Mem oria FLIGHT FLIGHT 11-04 08:37:00 l Active 00:00: [place] 11/04/2021 00 [facility] FALL FALL Diagnosis Active 2021-10-14 [facility] oria Active 10-09 14:12:00 l 10/09/2021 00:00: Gualberto pollard [address] M43.26 - M43.26 - Diagnosis Active 2020-052022-02-13 Memoria FUSION OF FUSION OF 1-18 08:09:00 l SPINE, SPINE, 00:00: Marshall LUMBAR LUMBAR 00 REGION REGION Active 04/17/2021 OPIJuany Martinez Constipati Constipat Problem Active 2021-11-14 Memoria on ion 23:21:56 l (disorder) (disorder) James torres Active Problem 11/14/2021 [facility] Varicocele Varicocel Problem Active 2021-11-14 Memoria (disorder) e 23:21:56 l (disorder) Gualberto pollard Active Problem 11/14/2021 [facility] CRAMP AND CRAMP AND Diagnosis Active 2022-01-01 Memoria SPASM SPASM 15:03:00 l Active Gualberto pollard [facility] M54.2 - M54.2 - Diagnosis Active 2021-11-25 Memoria CERVICALGI CERVICALGI 11:31:00 l A A Active Marshall OPID [place] M48.02 - M48.02 - Diagnosis Active 2022-01-30 Memoria SPINAL SPINAL 10:12:00 l STENOSIS, STENOSIS, Herm fabien CERVICAL CERVICAL CARLOZ CARLOZ Active OPID [place] Recurrent Recurrent Problem Active 2022-11-15 Memoria depression depression 08:03:24 l (disorder) (disorder) He rmann Active Problem 11/15/2022 [facility] Anxiety Anxiety Problem Active 2022-11-15 Me moria disorder disorder 08:03:24 l (disorder) (disorder) He rmann Active Problem 11/15/2022 [facility] Posttrauma Problem Active 2022-11-15 M emoria tic stress Posttrauma 08:03:24 l disorder tic stress Herm fabien (disorder) disorder (disorder) Active Problem 11/15/2022 [facility] Panic Panic Problem Active 2022-11-15 Memor ia attack attack 08:03:24 l (finding) (finding) Herm fabien Active Problem 11/15/2022 [facility] Panic Panic Diagnosis 2022-11-05 2022-11-05 Memoria disorder disorder 11-02 06:47:40 06:47:40 l without without 19:33: [place] agoraphobi agoraphobi 00 a a (disorder) (disorder) 11/02/2022 Diagnosis 11/05/2022 [facility] Allergies, Adverse Reactions, Alerts Allergy Allergy Status Severity Reaction(s) Onset Inactive Treating Comm ents Source Name Type Date Date Clinician Tetanus Propensi Active Anaphylaxis Me thodi And ty to 11-04 st Diphther adverse 00:00: [facility]osp[facility] . Tox reaction 00 l (Pf) s to drug Tetanus Propensi Active Swelling swelling [facility] Toxoids ty to 6 of [facility] adverse 00:00: reaction 00 s Tetanus- Propensi Active Diphther ty to 3 ia adverse 00:00: Toxoids reaction 00 Td - to drug Intramus cular Tetanus DA Active U [facility] Vaccines 06-18 [facility] 00:00: [facility] Toxoid 00 are [facility] No Known DA Active [facility] Allergie 06-18 [facility] 00:[facility]: [facility] 00 are [facility] lactose FA Active U [facility] 06-18 [facility] 00:00: Health 00 are [facility] tetanus tetanus Active Memoria immune immune l globulin globulin G[place]to n Food Food Active Memoria Lactose Lactose l Intolera Intolera Gualberto n nce nce (Restric (Restric ts ts Milk/Mil Milk/Mil k k Products Products ) ) Social History Social Habit Start Date Stop Date Quantity Comments Source Gender identity [facility] of Social 2022-11-04 2022-11-[address] function 00:00:00 00:00:00 Hospital Exposure to 2021-11-15 2021-11-25 Not sure [facility] SARS-CoV-2 (event) 00:00:00 11:45:00 Alcohol intake 2021-11-25 2021-11-25 Lifetime [facility] 00:00:00 00:00:00 non-drinker (finding) Social History 2021-11-05 2021-11-05 [facility] 22:25:04 22:25:04 Tobacco use and 2021-10-30 2021-10-30 Smokeless [facility] exposure 00:00:00 00:00:00 tobacco non-user Cigarette 2021-10-30 2021-10-30 [facility] pack-years 00:00:00 00:00:00 [birth year] [facility] 00:00:00 00:00:00 Hospital Smoking Status Start Date Stop Date Source Tobacco smoking consumption unknown [facility] Tobacco smoking status [facility] Medications Ordered Filled Start Stop Current Ordering Indication Dosage Frequency Signature Comments Components Source Medication Medication Date Date Medication? Clinician (SIG) Name Name trazodone Yes 50 mg = 1 Mem oria 50 mg oral 6-05 tab, PO, l tablet 19:29: Bedtime, [place] 00 for sleep, X 30 day, # 30 tab, 11 Refill(s), Pharmacy: [facility], workers comp, 175.26, cm, 11/02/22 13:19:00 CDT, Height, 77.273, kg, 11/02/22 13:19:00 CDT, Weight trazodone Yes 50 mg = 1 Mem oria 50 mg oral 6-05 tab, PO, l tablet 19:29: Bedtime, [place] 00 for sleep, X 30 day, # 30 tab, 11 Refill(s), Pharmacy: [facility], workers comp, 175.26, cm, 11/02/22 13:19:00 CDT, Height, 77.273, kg, 11/02/22 13:19:00 CDT, Weight prazosin 1 2022-0 Yes 1 mg = 1 Mem oria mg oral 6-05 cap, PO, l capsule 19:28: Bedtime, Gualberto n 00 for PTSD, # 30 cap, 11 Refill(s), Pharmacy: [facility], workers comp, 175.26, cm, 11/02/22 13:19:00 CDT, Height, 77.273, kg, 11/02/22 13:19:00 CDT, Weight prazosin 1 2022-0 Yes 1 mg = 1 Mem oria mg oral 6-05 cap, PO, l capsule 19:28: Bedtime, Gualberto n 00 for PTSD, # 30 cap, 11 Refill(s), Pharmacy: [facility], workers comp, 175.26, cm, 11/02/22 13:19:00 CDT, Height, 77.273, kg, 11/02/22 13:19:00 CDT, Weight Cymbalta 30 2022-0 Yes 30 mg = 1 M emoria mg oral 6-05 cap, PO, l delayed 19:18: Daily, X G[place]to n release 30 day, # capsule 30 cap, 11 Refill(s), Pharmacy: [facility], workers comp, 175.26, cm, 11/02/22 13:19:00 CDT, Height, 77.273, kg, 11/02/22 13:19:00 CDT, Weight Cymbalta 30 2022-0 Yes 30 mg = 1 M emoria mg oral 6-05 cap, PO, l delayed 19:18: Daily, X [place] n release 30 day, # capsule 30 cap, 11 Refill(s), Pharmacy: [facility], workers comp, 175.26, cm, 11/02/22 13:19:00 CDT, Height, 77.273, kg, 11/02/22 13:19:00 CDT, Weight Symproic 0 Yes 0.2 mg = 1 Mem oria 0.2 mg oral 5-02 tab, PO, l tablet 16:46: Daily [place] 00 Symproic 2022-0 Yes 0.2 mg = 1 Mem oria 0.2 mg oral 5-02 tab, PO, l tablet 16:46: Daily Symproic 2022-0 Yes 0.2 mg = 1 Mem oria 0.2 mg oral 5-02 tab, PO, l tablet 16:46: Daily Cialis 20 2022-0 Yes 20 mg = 1 Mem oria mg oral 1-05 tab, PO, l tablet 18:08: Daily, PRN Audra nn 00 for erectile dysfunctio n, WC; Take prior to intercours e, # 10 tab, 3 Refill(s), Pharmacy: [facility] #[id number], 175.26, cm, 06/04/22 11:04:00 [employer], Height, 75, kg, 06/04/22 11:04:00 [employer], Weight Josefas 20 2022-0 Yes 20 mg = 1 Mem oria mg oral 1-05 tab, PO, l tablet 18:08: Daily, PRN Audra nn 00 for erectile dysfunctio n, WC; Take prior to intercours e, # 10 tab, 3 Refill(s), Pharmacy: [facility] #[id number], 175.26, cm, 06/04/22 11:04:00 [employer], Height, 75, kg, 06/04/22 11:04:00 [employer], Weight Josefas 20 0 Yes 20 mg = 1 Mem oria mg oral 1-05 tab, PO, l tablet 18:08: Daily, PRN Audra nn 00 for erectile dysfunctio n, WC; Take prior to intercours e, # 10 tab, 3 Refill(s), Pharmacy: [facility] #[id number], 175.26, cm, 06/04/22 11:04:00 [employer], Height, 75, kg, 06/04/22 11:04:00 [employer], Weight pregabalin 2022-0 Yes 75 mg = 1 Me moria 75 mg oral 1-05 cap, PO, l capsule 17:21: Daily, 0 Gualberto n 00 Refill(s) pregabalin 2022-0 Yes 75 mg = 1 Me moria 75 mg oral 1-05 cap, PO, l capsule 17:21: Daily, 0 Gualberto n 00 Refill(s) pregabalin 3-0 Yes 75 mg = 1 Me moria 75 mg oral 1-05 cap, PO, l capsule 17:21: Daily, 0 Gualberto n 00 Refill(s) Viagra 100 3-0 Yes 100 mg = 1 M emoria mg oral 1-05 tab, PO, l tablet 17:09: PRN, Take G[place]berto n 00 1/2 tab (50mg) 30 mins prior to sexual activity, 0 Refill(s) Viagra 100 3-0 Yes 100 mg = 1 M emoria mg oral 1-05 tab, PO, l tablet 17:09: PRN, Take G[place]berto n 00 1/2 tab (50mg) 30 mins prior to sexual activity, 0 Refill(s) Viagra 100 3-0 Yes 100 mg = 1 M emoria mg oral 1-05 tab, PO, l tablet 17:09: PRN, Take Gualberto n 00 1/2 tab (50mg) 30 mins prior to sexual activity, 0 Refill(s) TAKE 1 2021-0 No 10 TABLET BY 9-26 MOUTH DAILY 00:00: NEEDED 00 TAKE 1 2022-0 No TABLET BY 9-26 MOUTH TWICE 00:00: DAILY WITH 00 FOOD TAKE 2 2022-0 No TABLETS BY 9-26 MOUTH EVERY 00:00: NIGHT AT 00 BEDTIME WITH MEALS TAKE 1 2-0 No 10 TABLET BY 9-26 MOUTH DAILY 00:00: NEEDED 00 TAKE 1 2-0 No TABLET BY 9-26 MOUTH TWICE 00:00: DAILY WITH 00 FOOD TAKE 2 2022-0 No TABLETS BY 9-26 MOUTH EVERY 00:00: NIGHT AT 00 BEDTIME WITH MEALS ONAbotulinu 2022-0 No 200 unit, M emoria mtoxinA 02-18 Route: IM, l 19:00: Marshall ALMEIDA Dosing Weight 72.727, kg, Start date: 02/18/22 14:00:00 CDT, Duration: 30 day, Stop date: 03/20/22 13:59:00 CDT ONAbotulinu 2-0 No 200 unit, Wilder haasria mtoxinA 02-18 Route: IM, l 19:00: Marshall ALMEIDA Dosing Weight 72.727, kg, Start date: 02/18/22 14:00:00 CDT, Duration: 30 day, Stop date: 03/20/22 13:59:00 CDT ONAbotulinu No 200 unit, Wilder gomez mtoxinA 02-18 Route: IM, l 19:00: ELLE Dosing Weight 72.727, kg, Start date: 02/18/22 14:00:00 CDT, Duration: 30 day, Stop date: 03/20/22 13:59:00 CDT MiraLax 2021-0 Yes 17 gm, PO, Chapin oliva 9-21 Daily, 0 l 18:52: Refill(s) senna 2021-0 Yes PO, Daily, Memori a 9-21 0 l 18:52: Refill(s) MiraLax 2021-0 Yes 17 gm, PO, Chapin oliva 9-21 Daily, 0 l 18:52: Refill(s) senna 2021-0 Yes PO, Daily, Memori a 9-21 0 l 18:52: Refill(s) MiraLax 2021-0 Yes 17 gm, PO, Chapin oliva 9-21 Daily, 0 l 18:52: Refill(s) senna 2021-0 Yes PO, Daily, Memori a 9-21 0 l 18:52: Refill(s) ALPRAZOLam 0 Yes PO, 0 Memori a 8-30 Refill(s) l 15:04: ALPRAZOLam 0 Yes 2 mg, PO, Me moria 8-30 PRN, 0 l 15:04: Refill(s) ALPRAZOLam 0 Yes 2 mg, PO, Me moria 8-30 PRN, 0 l 15:04: Refill(s) lisinopril 0 Yes 10 mg, PO, M emoria 8-30 Daily, 0 l 15:03: Refill(s) methocarbam Yes 500 mg, Mem oria ol 8-30 PO, BID, 0 l 15:03: Refill(s) lisinopril 2021-0 Yes PO, Daily, M emoria 8-30 0 l 15:03: Refill(s) methocarbam 2021-0 Yes 500 mg, Mem oria ol 8-30 PO, BID, 0 l 15:03: Refill(s) lisinopril Yes 10 mg, PO, M emoria 8-30 Daily, 0 l 15:03: Refill(s) methocarbam 2021-0 Yes 500 mg, Mem oria ol 8-30 PO, BID, 0 l 15:03: Refill(s) TAKE 1 No 500 TABLET BY 8-19 MOUTH TWICE 00:00: DAILY WITH 00 FOOD TAKE 1 No 10 TABLET BY 8-19 MOUTH DAILY 00:00: NEEDED 00 TAKE 1 No 500 TABLET BY 8-19 MOUTH TWICE 00:00: DAILY WITH 00 FOOD TAKE 1 No 10 TABLET BY 8-19 MOUTH DAILY 00:00: NEEDED 00 methocarbam 2021-0 2021- No methocarba UT ol 6-28 06-28 mol 500 mg Health (Robaxin) 12:41: 00:00 tablet 500 MG 23 :00 TAKE 2 tablet TABLETS BY MOUTH THREE TIMES DAILY FOR 14 DAYS diclofenac Yes diclofenac U T (Voltaren) 6-28 sodium 75 Heal th 75 MG EC 11:56: mg tablet 49 tablet,del ayed release TAKE 1 TABLET BY MOUTH TWICE DAILY polyethylen Yes polyethyle UT e glycol 6-28 ne glycol Health (Glycolax) 11:56: 3350 17 17 GM/SCOOP 49 gram/dose powder oral powder MIX 17 GRAMS WITH 8 OUNCES OF WATER AND DRINK EVERY DAY diclofenac Yes diclofenac U T (Voltaren) 6-28 sodium 75 Heal th 75 MG EC 11:56: mg tablet 49 tablet,del ayed release TAKE 1 TABLET BY MOUTH TWICE DAILY polyethylen Yes polyethyle UT e glycol 6-28 ne glycol Health (Glycolax) 11:56: 3350 17 17 GM/SCOOP 49 gram/dose powder oral powder MIX 17 GRAMS WITH 8 OUNCES OF WATER AND DRINK EVERY DAY diclofenac Yes diclofenac U T (Voltaren) 6-28 sodium 75 Heal th 75 MG EC 11:56: mg tablet 49 tablet,del ayed release TAKE 1 TABLET BY MOUTH TWICE DAILY polyethylen Yes polyethyle UT e glycol 6-28 ne glycol Health (Glycolax) 11:56: 3350 17 17 GM/SCOOP 49 gram/dose powder oral powder MIX 17 GRAMS WITH 8 OUNCES OF WATER AND DRINK EVERY DAY diclofenac Yes diclofenac U T (Voltaren) 6-28 sodium 75 Heal th 75 MG EC 11:56: mg tablet 49 tablet,del ayed release TAKE 1 TABLET BY MOUTH TWICE DAILY polyethylen Yes polyethyle UT e glycol 6-28 ne glycol Health (Glycolax) 11:56: 3350 17 17 GM/SCOOP 49 gram/dose powder oral powder MIX 17 GRAMS WITH 8 OUNCES OF WATER AND DRINK EVERY DAY diclofenac Yes diclofenac U T (Voltaren) 6-28 sodium 75 Heal th 75 MG EC 11:56: mg tablet 49 tablet,del ayed release TAKE 1 TABLET BY MOUTH TWICE DAILY polyethylen Yes polyethyle UT e glycol 6-28 ne glycol Health (Glycolax) 11:56: 3350 17 17 GM/SCOOP 49 gram/dose powder oral powder MIX 17 GRAMS WITH 8 OUNCES OF WATER AND DRINK EVERY DAY diclofenac Yes diclofenac U T (Voltaren) 6-28 sodium 75 Heal th 75 MG EC 11:56: mg tablet 49 tablet,del ayed release TAKE 1 TABLET BY MOUTH TWICE DAILY polyethylen Yes polyethyle UT e glycol 6-28 ne glycol Health (Glycolax) 11:56: 3350 17 17 GM/SCOOP 49 gram/dose powder oral powder MIX 17 GRAMS WITH 8 OUNCES OF WATER AND DRINK EVERY DAY diclofenac Yes diclofenac U T (Voltaren) 6-28 sodium 75 Heal th 75 MG EC 11:56: mg tablet 49 tablet,del ayed release TAKE 1 TABLET BY MOUTH TWICE DAILY polyethylen Yes polyethyle UT e glycol 6-28 ne glycol Health (Glycolax) 11:56: 3350 17 17 GM/SCOOP 49 gram/dose powder oral powder MIX 17 GRAMS WITH 8 OUNCES OF WATER AND DRINK EVERY DAY diclofenac Yes diclofenac U T (Voltaren) 6-28 sodium 75 Heal th 75 MG EC 11:56: mg tablet 49 tablet,del ayed release TAKE 1 TABLET BY MOUTH TWICE DAILY polyethylen Yes polyethyle UT e glycol 6-28 ne glycol Health (Glycolax) 11:56: 3350 17 17 GM/SCOOP 49 gram/dose powder oral powder MIX 17 GRAMS WITH 8 OUNCES OF WATER AND DRINK EVERY DAY diclofenac Yes diclofenac U T (Voltaren) 6-28 sodium 75 Heal th 75 MG EC 11:56: mg tablet 49 tablet,del ayed release TAKE 1 TABLET BY MOUTH TWICE DAILY polyethylen Yes polyethyle UT e glycol 6-28 ne glycol Health (Glycolax) 11:56: 3350 17 17 GM/SCOOP 49 gram/dose powder oral powder MIX 17 GRAMS WITH 8 OUNCES OF WATER AND DRINK EVERY DAY diclofenac Yes diclofenac U T (Voltaren) 6-28 sodium 75 Heal th 75 MG EC 11:56: mg tablet 49 tablet,del ayed release TAKE 1 TABLET BY MOUTH TWICE DAILY polyethylen Yes polyethyle UT e glycol 6-28 ne glycol Health (Glycolax) 11:56: 3350 17 17 GM/SCOOP 49 gram/dose powder oral powder MIX 17 GRAMS WITH 8 OUNCES OF WATER AND DRINK EVERY DAY diclofenac Yes diclofenac U T (Voltaren) 6-28 sodium 75 Heal th 75 MG EC 11:56: mg tablet 49 tablet,del ayed release TAKE 1 TABLET BY MOUTH TWICE DAILY polyethylen Yes polyethyle UT e glycol 6-28 ne glycol Health (Glycolax) 11:56: 3350 17 17 GM/SCOOP 49 gram/dose powder oral powder MIX 17 GRAMS WITH 8 OUNCES OF WATER AND DRINK EVERY DAY diclofenac Yes diclofenac U T (Voltaren) 6-28 sodium 75 Heal th 75 MG EC 11:56: mg tablet 49 tablet,del ayed release TAKE 1 TABLET BY MOUTH TWICE DAILY polyethylen Yes polyethyle UT e glycol 6-28 ne glycol Health (Glycolax) 11:56: 3350 17 17 GM/SCOOP 49 gram/dose powder oral powder MIX 17 GRAMS WITH 8 OUNCES OF WATER AND DRINK EVERY DAY lactulose 2021-0 Yes [id number] Take daily UT 20 gram/30 6-28 as needed Heal th mL oral 00:00: for solution 00 constipati on hold for loose stool Baclofen 5 2021-0 Yes [id number] Take 2.5 UT MG tablet 6-28 mg po BID Healt h 00:00: for 5 days 00 then 5 mg po BID thereafter lactulose 2021-0 Yes [id number] Take daily UT 20 gram/30 6-28 as needed Heal th mL oral 00:00: for solution 00 constipati on hold for loose stool Baclofen 5 2021-0 Yes [id number] Take 2.5 UT MG tablet 6-28 mg po BID Healt h 00:00: for 5 days 00 then 5 mg po BID thereafter lactulose 2021-0 Yes [id number] Take daily UT 20 gram/30 6-28 as needed Heal th mL oral 00:00: for solution constipati on hold for loose stool Baclofen 5 2021-0 Yes [id number] Take 2.5 UT MG tablet 6-28 mg po BID Healt h 00:00: for 5 days 00 then 5 mg po BID thereafter lactulose 2021-0 Yes [id number] Take daily UT 20 gram/30 6-28 as needed Heal th mL oral 00:00: for solution 00 constipati on hold for loose stool Baclofen 5 2021-0 Yes [id number] Take 2.5 UT MG tablet 6-28 mg po BID Healt h 00:00: for 5 days 00 then 5 mg po BID thereafter lactulose 2021-0 Yes [id number] Take daily UT 20 gram/30 6-28 as needed Heal th mL oral 00:00: for solution 00 constipati on hold for loose stool Baclofen 5 2021-0 Yes [id number] Take 2.5 UT MG tablet 6-28 mg po BID Healt h 00:00: for 5 days 00 then 5 mg po BID thereafter lactulose 2021-0 Yes [id number] Take daily UT 20 gram/30 6-28 as needed Heal th mL oral 00:00: for solution 00 constipati on hold for loose stool Baclofen 5 2021-0 Yes [id number] Take 2.5 UT MG tablet 6-28 mg po BID Healt h 00:00: for 5 days 00 then 5 mg po BID thereafter lactulose 2021-0 Yes [id number] Take daily UT 20 gram/30 6-28 as needed Heal th mL oral 00:00: for solution constipati on hold for loose stool Baclofen 5 2021-0 Yes [id number] Take 2.5 UT MG tablet 6-28 mg po BID Healt h 00:00: for 5 days 00 then 5 mg po BID thereafter lactulose 2021-0 Yes [id number] Take daily UT 20 gram/30 6-28 as needed Heal th mL oral 00:00: for solution constipati on hold for loose stool Baclofen 5 2021-0 Yes [id number] Take 2.5 UT MG tablet 6-28 mg po BID Healt h 00:00: for 5 days 00 then 5 mg po BID thereafter lactulose 2021-0 Yes [id number] Take daily UT 20 gram/30 6-28 as needed Heal th mL oral 00:00: for solution constipati on hold for loose stool Baclofen 5 2021-0 Yes [id number] Take 2.5 UT MG tablet 6-28 mg po BID Healt h 00:00: for 5 days 00 then 5 mg po BID thereafter lactulose 2021-0 Yes [id number] Take daily UT 20 gram/30 6-28 as needed Heal th mL oral 00:00: for solution constipati on hold for loose stool Baclofen 5 2021-0 Yes [id number] Take 2.5 UT MG tablet 6-28 mg po BID Healt h 00:00: for 5 days 00 then 5 mg po BID thereafter lactulose 2021-0 Yes [id number] Take daily UT 20 gram/30 6-28 as needed Heal th mL oral 00:00: for solution 00 constipati on hold for loose stool Baclofen 5 2021-0 Yes [id number] Take 2.5 UT MG tablet 6-28 mg po BID Healt h 00:00: for 5 days 00 then 5 mg po BID thereafter lactulose 2021-0 Yes [id number] Take daily UT 20 gram/30 6-28 as needed Heal th mL oral 00:00: for solution 00 constipati on hold for loose stool Baclofen 5 2021-0 Yes [id number] Take 2.5 UT MG tablet 6-28 mg po BID Healt h 00:00: for 5 days 00 then 5 mg po BID thereafter HYDROcodone 2021-0 Yes 49 1{tbl} Take 1 UT -acetaminop 6-24 tablet by [facility] ([facility]) 00:00: mouth 5-325 MG 00 every 4 tablet (four) hours if needed for severe pain. HYDROcodone 2-0 Yes 49 1{tbl} Take 1 UT -acetaminop 6-24 tablet by Hea lt [facility] ([facility]) 00:00: mouth 5-325 MG 00 every 4 tablet (four) hours if needed for severe pain. HYDROcodone 2-0 Yes 49 1{tbl} Take 1 UT -acetaminop 6-24 tablet by Hea lt hen ([facility]) 00:00: mouth 5-325 MG 00 every 4 tablet (four) hours if needed for severe pain. HYDROcodone 2021-0 Yes 49 1{tbl} Take 1 UT -acetaminop 6-24 tablet by Hea lt [facility] ([facility]) 00:00: mouth 5-325 MG 00 every 4 tablet (four) hours if needed for severe pain. HYDROcodone 2021-0 Yes 49 1{tbl} Take 1 UT -acetaminop 6-24 tablet by Adyn[facility]a [facility] ([facility]) 00:00: mouth 5-325 MG 00 every 4 tablet (four) hours if needed for severe pain. HYDROcodone 2021-0 Yes 49 1{tbl} Take 1 UT -acetaminop 6-24 tablet by Adynxxa [facility] ([facility]) 00:00: mouth 5-325 MG 00 every 4 tablet (four) hours if needed for severe pain. HYDROcodone 2-0 Yes 49 1{tbl} Take 1 UT -acetaminop 6-24 tablet by Hea [facility] ([facility]) 00:00: mouth 5-325 MG 00 every 4 tablet (four) hours if needed for severe pain. HYDROcodone 2022-0 Yes 49 1{tbl} Take 1 UT -acetaminop 6-24 tablet by Hea lt hen ([facility]) 00:00: mouth 5-325 MG 00 every 4 tablet (four) hours if needed for severe pain. HYDROcodone 2-0 Yes 49 1{tbl} Take 1 UT -acetaminop 6-24 tablet by Hea lt hen ([facility]) 00:00: mouth 5-325 MG 00 every 4 tablet (four) hours if needed for severe pain. HYDROcodone 2021-0 Yes 49 1{tbl} Take 1 UT -acetaminop 6-24 tablet by alejandro [facility] ([place] 00:00: mouth 5-325 MG 00 every 4 tablet (four) hours if needed for severe pain. HYDROcodone 2021-0 Yes 49 1{tbl} Take 1 UT -acetaminop 6-24 tablet by [facility] ([place]) 00:00: mouth 5-325 MG 00 every 4 tablet (four) hours if needed for severe pain. HYDROcodone 2021-0 Yes 49 1{tbl} Take 1 UT -acetaminop 6-24 tablet by [facility] hen ([place]) 00:00: mouth 5-325 MG 00 every 4 tablet (four) hours if needed for severe pain. B12 .5 ml Q B12 .5 ml Q 0 No B12 .5 ml [place] day day x111-19 Q day x1 Comm [facility] B12 .5 ml Q B12 .5 ml Q 2021-0 No B12 .5 ml [place] day day x1 6-22 Q day x1 Comm 00:00: [facility] B12 .5 ml Q B12 .5 ml Q 2021-0 No B12 .5 ml [place] day day x1 6-22 Q day x1 Comm 00:00: [facility] B12 .5 ml Q B12 .5 ml Q 2021-0 No B12 .5 ml [facility] [place] day x1 day x1 6-22 Q day x1 Comm 00:00: [facility] B12 .5 ml Q B12 .5 ml Q 2021-0 No B12 .5 ml [place] x1 6- Q day x1 Comm 00:00: [facility] B12 .5 ml Q B12 .5 ml Q 2021-0 No B12 .5 ml [place] day x1 6-22 Q day x1 Comm 00:00: [facility] B12 .5 ml Q B12 .5 ml Q 2021-0 No B12 .5 ml [facility] [place] day x11 x11 6-22 Q day x11 Comm 00:00: days ty 00 [facility] B12 .5 ml Q B12 .5 ml Q No B12 .5 ml [place] day x11 x11 6-22 Q day x11 Comm uni 00:00: days ty 00 [facility] Lyrica No Notes: Memoria 6-15 (Same as: l 02:00: Lyrica) [place] 00 Lyrica No Notes: Memoria 6-15 (Same as: l 02:00: Lyrica) [place] 00 Lyrica No Notes: Memoria 6-15 (Same as: l 02:00: Lyrica) [place] 00 CeleBREX No Notes: Memoria 6-15 NSAID. l 00:49: Please [place] 00 check indication . Not for seizure. (Same As: CeleBREX) CeleBREX No Notes: Memoria 6-15 NSAID. l 00:49: Please [place] 00 check indication . Not for seizure. (Same As: CeleBREX) CeleBREX No Notes: Memoria 6-15 NSAID. l 00:49: Please [place] 00 check indication . Not for seizure. (Same As: CeleBREX) lidocaine No Notes: Memori a 4% patch 6-14 Patch is l 21:00: applied to [place] 00 intact skin to cover painful area for up to 12 hours in a 24-hour period (12 hours on and 12 hours off). Please indicate the location of applicatio n site. Site 1: Remove old patch before applicatio n of new patch. (Same as Aspercreme Lidocaine Patch) lidocaine No Notes: Memori a 4% patch 6-14 Patch is l 21:00: applied to [place] 00 intact skin to cover painful area for up to 12 hours in a 24-hour period (12 hours on and 12 hours off). Please indicate the location of applicatio n site. Site 1: Remove old patch before applicatio n of new patch. (Same as Aspercreme Lidocaine Patch) lidocaine 2022-0 No Notes: Memori a 4% patch 6-14 Patch is l 21:00: applied to [place] 00 intact skin to cover painful area for up to 12 hours in a 24-hour period (12 hours on and 12 hours off). Please indicate the location of applicatio n site. Site 1: Remove old patch before applicatio n of new patch. (Same as Aspercreme Lidocaine Patch) polyethylen 2-0 Yes 17 gm, PO, Memoria e glycol 6-13 Daily, X l 3350 oral 19:09: 31 day, # grimaldo powder for 00 527 gm, 0 reconstitut Refill(s), ion Pharmacy: [facility] #[id number], 175.26, cm, 11/05/21 17:22:00 CDT, Height, 68.807, kg, 11/05/21 17:22:00 CDT, Weight pregabalin 2022-0 Yes 75 mg = 1 Me moria 75 mg oral 6-13 cap, PO, l capsule 19:09: Q12H, X 30 Herm fabien 00 day, # 60 cap, 0 Refill(s), Pharmacy: [facility] #[id number], 175.26, cm, 11/05/21 17:22:00 CDT, Height, 68.807, kg, 11/05/21 17:22:00 CDT, Weight polyethylen 2-0 Yes 17 gm, PO, Memoria e glycol 6-13 Daily, X l 3350 oral 19:: 31 day, # grimaldo powder for 00 527 gm, 0 reconstitut Refill(s), ion Pharmacy: [facility] #[id number], 175.26, cm, 11/05/21 17:22:00 CDT, Height, 68.807, kg, 11/05/21 17:22:00 CDT, Weight pregabalin 2022-0 Yes 75 mg = 1 Me moria 75 mg oral 6-13 cap, PO, l capsule 19:09: Q12H, X 30 Herm fabien 00 day, # 60 cap, 0 Refill(s), Pharmacy: [facility] #[id number], 175.26, cm, 11/05/21 17:22:00 CDT, Height, 68.807, kg, 11/05/21 17:22:00 CDT, Weight polyethylen 2021-0 Yes 17 gm, PO, Memoria e glycol 6-13 Daily, X l 3350 oral 19:09: 31 day, # Her grimaldo powder for 00 527 gm, 0 reconstitut Refill(s), ion Pharmacy: [facility] #[id number], 175.26, cm, 11/05/21 17:22:00 CDT, Height, 68.807, kg, 11/05/21 17:22:00 CDT, Weight pregabalin 2021-0 Yes 75 mg = 1 Me moria 75 mg oral 6-13 cap, PO, l capsule 19:09: Q12H, X 30 Herm fabien 00 day, # 60 cap, 0 Refill(s), Pharmacy: [facility] #[id number], 175.26, cm, 11/05/21 17:22:00 CDT, Height, 68.807, kg, 11/05/21 17:22:00 CDT, Weight methocarbam 2021-0 Yes 1,000 mg = Memoria ol 500 mg 6-13 2 tab, PO, l oral tablet 19:08: TID, X 14 H ermann 00 day, # 84 tab, 0 Refill(s), Pharmacy: [facility] #[id number], 175.26, cm, 11/05/21 17:22:00 CDT, Height, 68.807, kg, 11/05/21 17:22:00 CDT, Weight tizanidine 2021-0 Yes 4 mg = 1 Mem oria 4 mg oral 6-13 tab, PO, l tablet 19:08: BID, PRN [place] 00 Muscle Spasms, X 14 day, # 28 tab, 0 Refill(s), Pharmacy: [facility] #[id number], 175.26, cm, 11/05/21 17:22:00 CDT, Height, 68.807, kg, 11/05/21 17:22:00 CDT, Weight Xanax 0.25 2021-0 Yes 0.25 mg = Me moria mg oral 6-13 1 tab, PO, l tablet 19:08: TID, PRN [place] 00 Anxiety, X 14 day, # 28 tab, 0 Refill(s), Pharmacy: [facility] #[id number], 175.26, cm, 11/05/21 17:22:00 CDT, Height, 68.807, kg, 11/05/21 17:22:00 CDT, Weight methocarbam 2021-0 Yes 1,000 mg = Memoria ol 500 mg 6-13 2 tab, PO, l oral tablet 19:08: TID, X 14 H ermann 00 day, # 84 tab, 0 Refill(s), Pharmacy: [facility] #[id number], 175.26, cm, 11/05/21 17:22:00 CDT, Height, 68.807, kg, 11/05/21 17:22:00 CDT, Weight tizanidine 2021-0 Yes 4 mg = 1 Mem oria 4 mg oral 6-13 tab, PO, l tablet 19:08: BID, PRN [place] 00 Muscle Spasms, X 14 day, # 28 tab, 0 Refill(s), Pharmacy: [facility] #[id number], 175.26, cm, 11/05/21 17:22:00 CDT, Height, 68.807, kg, 11/05/21 17:22:00 CDT, Weight Xanax 0.25 2021-0 Yes 0.25 mg = Me moria mg oral 6-13 1 tab, PO, l tablet 19:08: TID, PRN [place] 00 Anxiety, X 14 day, # 28 tab, 0 Refill(s), Pharmacy: [facility] #[id number], 175.26, cm, 11/05/21 17:22:00 CDT, Height, 68.807, kg, 11/05/21 17:22:00 CDT, Weight methocarbam 2021-0 Yes 1,000 mg = Memoria ol 500 mg 6-13 2 tab, PO, l oral tablet 19:08: TID, X 14 H ermann 00 day, # 84 tab, 0 Refill(s), Pharmacy: [facility] #[id number], 175.26, cm, 11/05/21 17:22:00 CDT, Height, 68.807, kg, 11/05/21 17:22:00 CDT, Weight tizanidine 2021-0 Yes 4 mg = 1 Mem oria 4 mg oral 6-13 tab, PO, l tablet 19:08: BID, PRN [place] 00 Muscle Spasms, X 14 day, # 28 tab, 0 Refill(s), Pharmacy: [facility] #[id number], 175.26, cm, 11/05/21 17:22:00 CDT, Height, 68.807, kg, 11/05/21 17:22:00 CDT, Weight Xanax 0.25 2021-0 Yes 0.25 mg = Me moria mg oral 6-13 1 tab, PO, l tablet 19:08: TID, PRN [place] 00 Anxiety, X 14 day, # 28 tab, 0 Refill(s), Pharmacy: [facility] #[id number], 175.26, cm, 11/05/21 17:22:00 CDT, Height, 68.807, kg, 11/05/21 17:22:00 CDT, Weight ALPRAZolam 0 Yes TAKE 1 UT (Xanax) 6-13 TABLET BY Health 0.25 MG 00:00: MOUTH tablet 00 THREE TIMES DAILY FOR 14 DAYS NEEDED FOR ANXIETY pregabalin 0 Yes 75mg Q12H Take 75 mg U T ([place]rica) 75 6-13 by mouth [facility] MG capsule 00:00: every 12 00 (twelve) hours. ALPRAZolam 2021-0 Yes TAKE 1 UT (Xanax) 6-13 TABLET BY Health 0.25 MG 00:00: MOUTH tablet 00 THREE TIMES DAILY FOR 14 DAYS NEEDED FOR ANXIETY pregabalin 2021-0 Yes 75mg Q12H Take 75 mg U T ([place]) 75 6-13 by mouth [facility] MG capsule 00:00: every 12 00 (twelve) hours. ALPRAZolam 2021-0 Yes TAKE 1 UT (Xanax) 6-13 TABLET BY Health 0.25 MG 00:00: MOUTH tablet 00 THREE TIMES DAILY FOR 14 DAYS NEEDED FOR ANXIETY pregabalin 2021-0 Yes 75mg Q12H Take 75 mg U T ([place]) 75 6-13 by mouth [facility] MG capsule 00:00: every 12 00 (twelve) hours. ALPRAZolam 2-0 Yes TAKE 1 UT (Xanax) 6-13 TABLET BY Health 0.25 MG 00:00: MOUTH tablet 00 THREE TIMES DAILY FOR 14 DAYS NEEDED FOR ANXIETY pregabalin 2022-0 Yes 75mg Q12H Take 75 mg U T ([place]) 75 6-13 by mouth [facility] MG capsule 00:00: every 12 00 (twelve) hours. ALPRAZolam 2021-0 Yes TAKE 1 UT (Xanax) 6-13 TABLET BY Health 0.25 MG 00:00: MOUTH tablet 00 THREE TIMES DAILY FOR 14 DAYS NEEDED FOR ANXIETY pregabalin 2022-0 Yes 75mg Q12H Take 75 mg U T ([place]) 75 6-13 by mouth [facility] MG capsule 00:00: every 12 00 (twelve) hours. ALPRAZolam 2021-0 Yes TAKE 1 UT (Xanax) 6-13 TABLET BY Health 0.25 MG 00:00: MOUTH tablet 00 THREE TIMES DAILY FOR 14 DAYS NEEDED FOR ANXIETY pregabalin 2-0 Yes 75mg Q12H Take 75 mg U T ([place]) 75 6-13 by mouth [facility]al [facility] MG capsule 00:00: every 12 00 (twelve) hours. ALPRAZolam 2-0 Yes TAKE 1 UT (Xanax) 6-13 TABLET BY Health 0.25 MG 00:00: MOUTH tablet 00 THREE TIMES DAILY FOR 14 DAYS NEEDED FOR ANXIETY pregabalin 2022-0 Yes 75mg Q12H Take 75 mg U T ([place]) 75 6-13 by mouth [facility]al [facility] MG capsule 00:00: every 12 00 (twelve) hours. ALPRAZolam 2-0 Yes TAKE 1 UT (Xanax) 6-13 TABLET BY Health 0.25 MG 00:00: MOUTH tablet 00 THREE TIMES DAILY FOR 14 DAYS NEEDED FOR ANXIETY pregabalin 2022-0 Yes 75mg Q12H Take 75 mg U T (Lyrica) 75 6-13 by mouth [facility]al [facility] MG capsule 00:00: every 12 00 (twelve) hours. ALPRAZolam 2-0 Yes TAKE 1 UT (Xanax) 6-13 TABLET BY Health 0.25 MG 00:00: MOUTH tablet 00 THREE TIMES DAILY FOR 14 DAYS NEEDED FOR ANXIETY pregabalin 2022-0 Yes 75mg Q12H Take 75 mg U T (Lyrica) 75 6-13 by mouth [facility]al [facility] MG capsule 00:00: every 12 00 (twelve) hours. ALPRAZolam 0 Yes TAKE 1 UT (Xanax) 6-13 TABLET BY Health 0.25 MG 00:00: MOUTH tablet 00 THREE TIMES DAILY FOR 14 DAYS NEEDED FOR ANXIETY pregabalin 2021-0 Yes 75mg Q12H Take 75 mg U T (Lyrica) 75 6-13 by mouth [facility]al [facility] MG capsule 00:00: every 12 00 (twelve) hours. ALPRAZolam Yes TAKE 1 UT (Xanax) 6-13 TABLET BY [facility] 0.25 MG 00:00: MOUTH tablet 00 THREE TIMES DAILY FOR 14 DAYS NEEDED FOR ANXIETY pregabalin 2021-0 Yes 75mg Q12H Take 75 mg U T (Lyrica) 75 6-13 by mouth [facility]al th MG capsule 00:00: every 12 00 (twelve) hours. ALPRAZolam Yes TAKE 1 UT (Xanax) 6-13 TABLET BY [facility] 0.25 MG 00:00: MOUTH tablet 00 THREE TIMES DAILY FOR 14 DAYS NEEDED FOR ANXIETY pregabalin 0 Yes 75mg Q12H Take 75 mg U T (Lyrica) 75 6-13 by mouth [facility]al [facility] MG capsule 00:00: every 12 00 (twelve) hours. tiZANidine 2021- No TAKE 1 UT (Zanaflex) 6-13 06-28 TABLET BY [facility] 4 MG tablet 00:00: 00:00 MOUTH 00 :00 TWICE DAILY FOR 14 DAYS NEEDED FOR MUSCLE SPASMS Xanax 0.25 No Notes: Memor ia mg oral 6-12 With food l tablet 19:25: or milk [place] 00 (Same as: Xanax) Xanax 0.25 No Notes: Memor ia mg oral 6-12 With food l tablet 19:25: or milk [place] 00 (Same as: Xanax) Xanax 0.25 No Notes: Memor ia mg oral 6-12 With food l tablet 19:25: or milk [place] 00 (Same as: Xanax) NS 1,000 mL 2022-0 No 1,000 ml, M emoria 11-09 Rate: l 04:43: 1,000 [place] 00 ml/hr, Infuse over: 1 hr, Route: IV, Dosing Weight 68.807 kg, Total Volume: 1,000, Start date: 11/08/21 23:43:00 CDT, Duration: 1 doses or times, Stop date: 11/09/21 0:42:00 CDT, Bolus Dose, BSA: 1.84 m2, 0 NS 1,000 mL No 1,000 [facility]: l 04:43: 1,000 [place] 00 ml/hr, Infuse over: 1 hr, Route: IV, Dosing Weight 68.807 kg, Total Volume: 1,000, Start date: 11/08/21 23:43:00 CDT, Duration: 1 doses or times, Stop date: 11/09/21 0:42:00 CDT, Bolus Dose, BSA: 1.84 m2, 0 NS 1,000 mL No 1,000 ml, [facility] Rate: l 04:43: 1,000 [place] 00 ml/hr, Infuse over: 1 hr, Route: IV, Dosing Weight 68.807 kg, Total Volume: 1,000, Start date: 11/08/21 23:43:00 CDT, Duration: 1 doses or times, Stop date: 11/09/21 0:42:00 CDT, Bolus Dose, BSA: 1.84 m2, 0 methocarbam No Notes: Chapin oliva ol 6-11 (Same l 22:00: as:Robaxin [place] ) methocarbam No Notes: Chapin oliva ol 6-11 (Same l 22:00: as:Robaxin [place] ) methocarbam No Notes: Chapin oliva ol 6-11 (Same l 22:00: as:Robaxin [place] ) tizanidine No Notes: Memor ia 6-11 (Same As: l 18:55: Zanaflex) tizanidine No Notes: Memor ia 6-11 (Same As: l 18:55: Zanaflex) tizanidine No Notes: Memor ia 6-11 (Same As: l 18:55: Zanaflex) Lyrica No Notes: Memoria 6-11 (Same as: l 18:54: Lyrica) Lyrica No Notes: Memoria 6-11 (Same as: l 18:54: Lyrica) Lyrica No Notes: Memoria 6-11 (Same as: l 18:54: Lyrica) senna 8.6 No Notes: Memori a mg oral 6-11 (Same as: l tablet 14:00: Senokot) gabapentin No Notes: Memor ia 100 mg oral 6-11 (Same as: l capsule 14:00: Neurontin) multivitami No Notes: Chapin oliva n with 6-11 (Same l minerals 14:00: as:Thera-M Her grimaldo 00 , Theragran- M) WASTE: F/P - Black; E - Municipal Trash Bin Give with food. polyethylen No Notes: Chapin oliva e glycol 6-11 Dissolve l 3350 14:00: in 8 oz of [place] 00 water or juice. (Same as: Miralax) senna 8.6 No Notes: Memori a mg oral 6-11 (Same as: l tablet 14:00: Senokot) gabapentin No Notes: Memor ia 100 mg oral 6-11 (Same as: l capsule 14:00: Neurontin) multivitami No Notes: Chapin oliva n with 6-11 (Same l minerals 14:00: as:Thera-M Her grimaldo 00 , Theragran- M) WASTE: F/P - Black; E - Municipal Trash Bin Give with food. polyethylen No Notes: Chapin oliva e glycol 6-11 Dissolve l 3350 14:00: in 8 oz of [place] 00 water or juice. (Same as: Miralax) polyethylen No Notes: Chapin oliva e glycol 6-11 Dissolve l 3350 14:00: in 8 oz of [place] 00 water or juice. (Same as: Miralax) senna 8.6 No Notes: Memori a mg oral 6-11 (Same as: l tablet 14:00: Senokot) gabapentin No Notes: Memor ia 100 mg oral 6-11 (Same as: l capsule 14:00: Neurontin) multivitami No Notes: Chapin oliva n with 6-11 (Same l minerals 14:00: as:Thera-M Her grimaldo 00 , Theragran- M) WASTE: F/P - Black; E - Municipal Trash Bin Give with food. Lovenox No Notes: Memoria 6-11 (Same as: l 05:00: Lovenox) Lovenox No Notes: Memoria 6-11 (Same as: l 05:00: Lovenox) Lovenox No Notes: Memoria 6-11 (Same as: l 05:00: Lovenox) Dulcolax No 10 mg, Memoria Laxative 6-11 Route: PA, l 04:17: Drug form: [place] 00 SUPP, Daily, Dosing Weight 68.807, kg, PRN Constipati on, Start date: 11/07/21 23:17:00 CDT, Duration: 30 day, Stop date: 12/07/21 23:16:00 CDT Dulcolax 2021-0 No 10 mg, Memoria Laxative 6-11 Route: PA, l 04:17: Drug form: [place] 00 SUPP, Daily, Dosing Weight 68.807, kg, PRN Constipati on, Start date: 11/07/21 23:17:00 CDT, Duration: 30 day, Stop date: 12/07/21 23:16:00 CDT Dulcolax 2021-0 No 10 mg, Memoria Laxative 6-11 Route: PA, l 04:17: Drug form: [place] 00 SUPP, Daily, Dosing Weight 68.807, kg, PRN Constipati on, Start date: 11/07/21 23:17:00 CDT, Duration: 30 day, Stop date: 12/07/21 23:16:00 CDT Beneprotein 0 No Notes: Chapin oliva 7 gm pkt 6-10 (Same as: l 22:00: Beneprotei [place] 00 n) Beneprotein No Notes: Chapin oliva 7 gm pkt 6-10 (Same as: l 22:00: Beneprotei [place] 00 n) Beneprotein No Notes: Chapin oliva 7 gm pkt 6-10 (Same as: l 22:00: Beneprotei [place] 00 n) Voltaren No Notes: Memoria Topical 1% 6-10 Same as: l topical gel 14:00: Voltaren He rm 00 Gel Voltaren No Notes: Memoria Topical 1% 6-10 Same as: l topical gel 14:00: Voltaren He rmann 00 Gel Voltaren 2021-0 No Notes: Memoria Topical 1% 6-10 Same as: l topical gel 14:00: Voltaren He rm Gel gabapentin No Notes: Memor ia 100 mg oral 6-10 (Same as: l capsule 02:00: Neurontin) Herm fabien gabapentin No Notes: Memor ia 100 mg oral 6-10 (Same as: l capsule 02:00: Neurontin) Herm fabien gabapentin No Notes: Memor ia 100 mg oral 6-10 (Same as: l capsule 02:00: Neurontin) Herm fabien 00 tizanidine 2021-0 No 4 mg = 1 Mem oria 4 mg oral 6-09 tab, PO, l tablet 20:41: BID, PRN [place] 00 Muscle Spasms, # 90 tizanidine 2021-0 No 4 mg = 1 Mem oria 4 mg oral 6-09 tab, PO, l tablet 20:41: BID, PRN [place] 00 Muscle Spasms, # 90 tizanidine 2021-0 No 4 mg = 1 Mem oria 4 mg oral 6-09 tab, PO, l tablet 20:41: BID, PRN [place] 00 Muscle Spasms, # 90 methocarbam 2021-0 No 500 mg = 1 Memoria ol 500 mg 6-09 tab, PO, l oral tablet 20:40: PRN [place] 00 methocarbam 2022-0 No 500 mg = 1 Memoria ol 500 mg - tab, PO, l oral tablet 20:40: PRN [place] n 00 methocarbam 0 No 500 mg = 1 Memoria ol 500 mg 6-09 tab, PO, l oral tablet 20:40: PRN [place] n 00 baclofen 5 No 2.5 mg = Mem oria mg oral - 0.5 tab, l tablet 20:39: PO, BID baclofen 5 0 No 2.5 mg = Mem oria mg oral - 0.5 tab, l tablet 20:39: PO, BID [place] 00 baclofen 5 0 No 2.5 mg = Mem oria mg oral - 0.5 tab, l tablet 20:39: PO, BID [place] 00 [place] 5/325 0 Yes 1 tab, PO, Memoria oral tablet - TID, PRN l 20:29: pain, # [place] 00 90, 0 Refill(s) [place] 5/325 2021-0 Yes 1 tab, PO, Memoria oral tablet - TID, PRN l 20:29: pain, # [place] 00 90, 0 Refill(s) [place] 5/325 2021-0 Yes 1 tab, PO, Memoria oral tablet - TID, PRN l 20:29: pain, # [place] 00 90, 0 Refill(s) methocarbam No Notes: Chapin oliva ol 11-06 (Same l 19:30: as:Robaxin [place] ) methocarbam No Notes: Chapin oliva ol 11-06 (Same l 19:30: as:Robaxin [place] ) methocarbam No Notes: Chapin oliva ol 11-06 (Same l 19:30: as:Robaxin [place] ) baclofen No 5 mg, 1 Memori a 11-06 tab, l 14:00: Route: PO, Drug form: TAB, Q12H, Dosing Weight 68.807, kg, (initial dosing, CrCL 50-80), Start date: 11/06/21 9:00:00 CDT, Duration: 30 day, Stop date: 12/05/21 21:00:00 CDT, 0 polyethylen 2-0 No Notes: Chapin oliva e glycol 6-09 Dissolve l 3350 14:00: in 8 oz of [place] 00 water or juice. (Same as: Miralax) baclofen 2022-0 No 5 mg, 1 Memori a 6-09 tab, l 14:00: Route: PO, [place] 00 Drug form: TAB, Q12H, Dosing Weight 68.807, kg, (initial dosing, CrCL 50-80), Start date: 11/06/21 9:00:00 CDT, Duration: 30 day, Stop date: 12/05/21 21:00:00 CDT, 0 polyethylen 2021-0 No Notes: Chapin oliva e glycol 6-09 Dissolve l 3350 14:00: in 8 oz of [place] 00 water or juice. (Same as: Miralax) baclofen 2-0 No 5 mg, 1 Memori a 6-09 tab, l 14:00: Route: PO, [place] 00 Drug form: TAB, Q12H, Dosing Weight 68.807, kg, (initial dosing, CrCL 50-80), Start date: 11/06/21 9:00:00 CDT, Duration: 30 day, Stop date: 12/05/21 21:00:00 CDT, 0 polyethylen 2021-0 No Notes: Chapin oliva e glycol 6-09 Dissolve l 3350 14:00: in 8 oz of [place] 00 water or juice. (Same as: Miralax) ketOROLAC 2022-0 No 4 days. Chapin oliva 30 mg/mL 6-09 l injectable 05:00: [place] solution 00 ketOROLAC 2-0 No 4 days. Chapin oliva 30 mg/mL 6-09 l injectable 05:00: [place] solution 00 ketOROLAC 2-0 No 4 days. Chapin oliva 30 mg/mL 6-09 l injectable 05:00: [place] solution 00 [place] 5/325 2021-0 No Notes: Chapin oliva oral tablet - (Same as: l 04:45: [place] 00 325/5) Do not exceed 4gm/day of acetaminop hen. [place] 2021-0 No Notes: Do Memoria 10/325 oral - not exceed l tablet 04:45: 4gm/day of Audra nn 00 acetaminop hen. (Same as: [place] [address]) [place] 5/325 No Notes: Chapin oliva oral tablet - (Same as: l 04:45: [place] 00 325/5) Do not exceed 4gm/day of acetaminop hen. [place] No Notes: Do Memoria 10/325 oral - not exceed l tablet 04:45: 4gm/day of Audra nn 00 acetaminop hen. (Same as: [place] 325) [place] 325 No Notes: Chapin oliva oral tablet - (Same as: l 04:45: [place] 00 325/5) Do not exceed 4gm/day of acetaminop hen. [place] No Notes: Do Memoria 10/325 oral 11-06 not exceed l tablet 04:45: 4gm/day of Audra nn 00 acetaminop hen. (Same as: [place] [address]) acetaminoph 0 No 0 Memori a en-hydrocod 6-08 Refill(s) l one 334 22:31: [place] mg-5 mg/10 00 mL oral elixir methocarbam No 1,000 mg = Memoria ol 500 mg 6-08 2 tab, PO, l oral tablet 22:31: QID, 0 Herm fabien 00 Refill(s) tizanidine No 4 mg = 2 Mem oria 2 mg oral 6-08 tab, PO, l tablet 22:31: Q8H, 0 [place] 00 Refill(s) acetaminoph 0 No 0 Memori a en-hydrocod 6-08 Refill(s) l one 334 22:31: [place] mg-5 mg/10 00 mL oral elixir methocarbam No 1,000 mg = Memoria ol 500 mg 6-08 2 tab, PO, l oral tablet 22:31: QID, 0 Herm fabien 00 Refill(s) tizanidine No 4 mg = 2 Mem oria 2 mg oral 6-08 tab, PO, l tablet 22:31: Q8H, 0 [place] 00 Refill(s) acetaminoph No 0 Memori a en-hydrocod 6-08 Refill(s) l one 334 22:31: [place] mg-5 mg/10 00 mL oral elixir methocarbam No 1,000 mg = Memoria ol 500 mg 6-08 2 tab, PO, l oral tablet 22:31: QID, 0 Herm fabien 00 Refill(s) tizanidine No 4 mg = 2 Mem oria 2 mg oral 6-08 tab, PO, l tablet 22:31: Q8H, 0 [place] 00 Refill(s) baclofen 5 No 5 mg = 1 Mem oria mg oral 6-08 tab, PO, l tablet 22:30: BID, 0 [place] 00 Refill(s) baclofen 5 No 5 mg = 1 Mem oria mg oral 6-08 tab, PO, l tablet 22:30: BID, 0 [place] 00 Refill(s) baclofen 5 No 5 mg = 1 Mem oria mg oral 6-08 tab, PO, l tablet 22:30: BID, 0 [place] 00 Refill(s) CeleBREX No Notes: Memoria 6-08 NSAID. l 22:00: Please [place] 00 check indication . Not for seizure. (Same As: CeleBREX) CeleBREX No Notes: Memoria 6-08 NSAID. l 22:00: Please [place] 00 check indication . Not for seizure. (Same As: CeleBREX) CeleBREX No Notes: Memoria 6-08 NSAID. l 22:00: Please [place] 00 check indication . Not for seizure. (Same As: CeleBREX) Robaxin No Notes: Memoria 6-08 (Same l 21:25: as:Robaxin [place] ) Robaxin No Notes: Memoria 6-08 (Same l 21:25: as:Robaxin [place] ) Robaxin No Notes: Memoria 6-08 (Same l 21:25: as:Robaxin [place] ) [place] 5/325 No Notes: Chapin oliva oral tablet 6-08 (Same as: l 21:23: [place] 325/5) Do not exceed 4gm/day of acetaminop hen. [place] 5325 No Notes: Chapin oliva oral tablet - (Same as: l 21:23: [place] 325/5) Do not exceed 4gm/day of acetaminop hen. [place] 5325 No Notes: Chapin oliva oral tablet -08 (Same as: l 21:23: [place] 325/5) Do not exceed 4gm/day of acetaminop hen. Dextrose No 12.5 gm, Memor ia 50% Syringe 11-05 25 mL, l (D50W) 20:54: Route: [place] 00 IVP, Drug Form: INJ, kg, PRN, PRN Blood Glucose Results, Start date: 11/05/21 15:54:00 CDT, Duration: 30 day, Stop date: 12/05/21 15:53:00 CDT, 0 glucagon No 1 mg, Memoria 11-05 Route: IM, l 20:54: Drug form: PDR/INJ, PRN, kg, PRN Blood Glucose Results, Start date: 11/05/21 15:54:00 CDT, Duration: 30 day, Stop date: 12/05/21 15:53:00 CDT, 0 bisacodyl No Notes: Memori a 11-05 (Same As: l 20:54: Dulcolax, Bisco-Lax) ondansetron No Notes: [place] oliva 11-05 (Same as: l 20:54: Zofran) MEDICATION WASTE Product Size: 4 mg Product Wasted: ___ mg melatonin No Notes: Memori a 11-05 (Same as: l 20:54: Melatonin) acetaminoph No 100.4 F, M emoria en 11-05 Start l 20:54: date: 11/05/21 15:54:00 CDT, Duration: 30 day, Stop date: 12/05/21 15:53:00 CDT Dextrose No 12.5 gm, Mem[facility] ia 50% Syringe 11-05 25 mL, l (D50W) 20:54: Route: IVP, Drug Form: INJ, kg, PRN, PRN Blood Glucose Results, Start date: 11/05/21 15:54:00 CDT, Duration: 30 day, Stop date: 12/05/21 15:53:00 CDT, 0 glucagon No 1 mg, Memoria 11-05 Route: IM, l 20:54: Drug form: [place] 00 PDR/INJ, PRN, kg, PRN Blood Glucose Results, Start date: 11/05/21 15:54:00 CDT, Duration: 30 day, Stop date: 12/05/21 15:53:00 CDT, 0 bisacodyl No Notes: Memori a 11-05 (Same As: l 20:54: Dulcolax, Bisco-Lax) ondansetron No Notes: [place] oliva 11-05 (Same as: l 20:54: Zofran) MEDICATION WASTE Product Size: 4 mg Product Wasted: ___ mg melatonin No Notes: Memori a 08 (Same as: l 20:54: Melatonin) acetaminoph No 100.4 F, M emoria en 11-05 Start l 20:54: date: 11/05/21 15:54:00 CDT, Duration: 30 day, Stop date: 12/05/21 15:53:00 CDT Dextrose 0 No 12.5 gm, Mem[facility] ia 50% Syringe 11-05 25 mL, l (D50W) 20:54: Route: IVP, Drug Form: INJ, kg, PRN, PRN Blood Glucose Results, Start date: 11/05/21 15:54:00 CDT, Duration: 30 day, Stop date: 12/05/21 15:53:00 CDT, 0 glucagon 0 No 1 mg, Memoria 11-05 Route: IM, l 20:54: Drug form: [place] 00 PDR/INJ, PRN, kg, PRN Blood Glucose Results, Start date: 11/05/21 15:54:00 CDT, Duration: 30 day, Stop date: 12/05/21 15:53:00 CDT, 0 bisacodyl No Notes: Memori a 11-05 (Same As: l 20:54: Dulcolax, Bisco-Lax) ondansetron No Notes: [place] oliva 11-05 (Same as: l 20:54: Zofran) MEDICATION WASTE Product Size: 4 mg Product Wasted: ___ mg melatonin No Notes: Memori a 11-05 (Same as: l 20:54: Melatonin) acetaminoph No 100.4 F, M emoria en 11-05 Start l 20:54: date: 11/05/21 15:54:00 CDT, Duration: 30 day, Stop date: 12/05/21 15:53:00 CDT Lactated 2021-0 No 1,000 mL, Chapin oliva Ringers IV 11-05 Rate: 100 l 1,000 mL 18:22: ml/hr, [place] 00 Infuse over: 10 hr, Route: IV, Total Volume: 1,000, Start date: 11/05/21 13:22:00 CDT, Duration: 30 day, Stop date: 12/05/21 13:21:00 CDT, 0 Lactated 2021-0 No 1,000 mL, Chapin oliva Ringers IV 11-05 Rate: 100 l 1,000 mL 18:22: ml/hr, [place] 00 Infuse over: 10 hr, Route: IV, Total Volume: 1,000, Start date: 11/05/21 13:22:00 CDT, Duration: 30 day, Stop date: 12/05/21 13:21:00 CDT, 0 Lactated 2021-0 No 1,000 mL, Chapin oliva Ringers IV 11-05 Rate: 100 l 1,000 mL 18:22: ml/hr, [place] 00 Infuse over: 10 hr, Route: IV, Total Volume: 1,000, Start date: 11/05/21 13:22:00 CDT, Duration: 30 day, Stop date: 12/05/21 13:21:00 CDT, 0 baclofen 2022-0 No 5 mg, 1 Mem[facility] a 6-08 tab, l 17:46: Route: PO, Drug form: TAB, ONCE, kg, Start date: 11/05/21 12:46:00 CDT, Stop date: 11/05/21 12:46:00 CDT, 0 baclofen 2022-0 No 5 mg, 1 Mem[facility] a 6-08 tab, l 17:46: Route: PO, Drug form: TAB, ONCE, kg, Start date: 11/05/21 12:46:00 CDT, Stop date: 11/05/21 12:46:00 CDT, 0 baclofen 2022-0 No 5 mg, 1 Mem[facility] a 6-08 tab, l 17:46: Route: PO, Drug form: TAB, ONCE, kg, Start date: 11/05/21 12:46:00 CDT, Stop date: 11/05/21 12:46:00 CDT, 0 [place] 2022-0 No 1 tab, Memoria 10/325 oral 6-08 Route: PO, l tablet 17:45: Drug Form: Audra nn 00 TAB, kg, ONCE, STAT, Start date: 11/05/21 12:45:00 CDT, Stop date: 11/05/21 12:45:00 CDT [place] 2022-0 No 1 tab, [facility] 10/325 oral 6-08 Route: PO, l tablet 17:45: Drug Form: Audra nn 00 TAB, kg, ONCE, STAT, Start date: 11/05/21 12:45:00 CDT, Stop date: 11/05/21 12:45:00 CDT [place] 2022-0 No 1 tab, [facility] 10/325 oral 6-08 Route: PO, l tablet 17:45: Drug Form: Audra nn 00 TAB, kg, ONCE, STAT, Start date: 11/05/21 12:45:00 CDT, Stop date: 11/05/21 12:45:00 CDT Zofran 2022-0 No 4 mg, [facility]oria 6-08 Route: l 14:22: IVP, Drug form: INJ, ONCE, kg, Priority: STAT, Start date: 11/05/21 9:22:00 CDT, Stop date: 11/05/21 9:22:00 CDT Zofran 2022-0 No 4 mg, [facility] 6-08 Route: l 14:22: IVP, Drug [place] 00 form: INJ, ONCE, kg, Priority: STAT, Start date: 11/05/21 9:22:00 CDT, Stop date: 11/05/21 9:22:00 CDT Zofran 2022-0 No 4 mg, [facility] 6-08 Route: l 14:22: IVP, Drug [place] 00 form: INJ, ONCE, kg, Priority: STAT, Start date: 11/05/21 9:22:00 CDT, Stop date: 11/05/21 9:22:00 CDT morphine 2022-0 No 4 mg, [facility] Sulfate 6-08 Route: l 13:28: IVP, ONCE, [place] 00 kg, Priority: STAT, Start date: 11/05/21 8:28:00 CDT, Stop date: 11/05/21 8:28:00 CDT morphine 2022-0 No 4 mg, [facility] Sulfate 6-08 Route: l 13:28: IVP, ONCE, [place] 00 kg, Priority: STAT, Start date: 11/05/21 8:28:00 CDT, Stop date: 11/05/21 8:28:00 CDT morphine 2022-0 No 4 mg, [facility] Sulfate 6-08 Route: l 13:28: IVP, ONCE, [place] 00 kg, Priority: STAT, Start date: 11/05/21 8:28:00 CDT, Stop date: 11/05/21 8:28:00 CDT Ativan 2022-0 No 2 mg, [facility] 6-08 Route: l 04:44: IVP, Drug [place] 00 form: INJ, ONCE, kg, Priority: STAT, Start date: 11/04/21 23:44:00 CDT, Stop date: 11/04/21 23:44:00 CDT Ativan 2022-0 No 2 mg, [facility] 6-08 Route: l 04:44: IVP, Drug [place] 00 form: INJ, ONCE, kg, Priority: STAT, Start date: 11/04/21 23:44:00 CDT, Stop date: 11/04/21 23:44:00 CDT Ativan No 2 mg, [facility] 6-08 Route: l 04:44: IVP, Drug form: INJ, ONCE, kg, Priority: STAT, Start date: 11/04/21 23:44:00 CDT, Stop date: 11/04/21 23:44:00 CDT ondansetron No Notes: Chapin oliva 6-08 (Same as: l 01:49: Zofran) [place] MEDICATION WASTE Product Size: 4 mg Product Wasted: ___ mg ondansetron No Notes: Chapin oliva 6-08 (Same as: l 01:49: Zofran) [place] MEDICATION WASTE Product Size: 4 mg Product Wasted: ___ mg ondansetron No Notes: Chapin oliva 6-08 (Same as: l 01:49: Zofran) [place] MEDICATION WASTE Product Size: 4 mg Product Wasted: ___ mg morphine No Notes: [facility] Sulfate 6-08 (Same l 00:45: as:MORPhin [place] 00 e Sulfate) morphine No Notes: [facility] Sulfate 6-08 (Same l 00:45: as:MORPhin [place] 00 e Sulfate) morphine No Notes: [facility] Sulfate 6-08 (Same l 00:45: as:MORPhin [place] 00 e Sulfate) Isolyte S No Notes: Memori a PH 7.4 500 6-07 (Same as: l mL 20:53: Isolyte S [place] 00 PH7.4, Normosol-R PH 7.4, Plasma-Lyt e A ) Isolyte S No Notes: Memori a PH 7.4 500 6-07 (Same as: l mL 20:53: Isolyte S [place] 00 PH7.4, Normosol-R PH 7.4, Plasma-Lyt e A ) Isolyte S No Notes: Memori a PH 7.4 500 6-07 (Same as: l mL 20:53: Isolyte S [place] 00 PH7.4, Normosol-R PH 7.4, Plasma-Lyt e A ) Baclofen 5 2021-0 Yes [id number] Take 2.5 UT MG tablet 6-02 mg po BID Healt h 00:00: for 5 days 00 then 5 mg po BID thereafter pregabalin 2021-0 Yes [id number] 50mg Q.5D Take 1 UT (Lyrica) 50 6-02 capsule [facility]alt h MG capsule 00:00: (50 mg 00 total) by mouth 2 (two) times a day. Baclofen 5 2021- Yes [id number] Take 2.5 UT MG tablet 6-02 mg po BID Healt h 00:00: for 5 days 00 then 5 mg po BID thereafter Baclofen 5 2021-0 Yes [id number] Take 2.5 UT MG tablet 6-02 mg po BID Healt h 00:00: for 5 days 00 then 5 mg po BID thereafter Baclofen 5 2021-0 Yes [id number] Take 2.5 UT MG tablet 6-02 mg po BID Healt h 00:00: for 5 days 00 then 5 mg po BID thereafter Baclofen 5 2021-0 Yes [id number] Take 2.5 UT MG tablet 6-02 mg po BID Healt h 00:00: for 5 days 00 then 5 mg po BID thereafter Baclofen 5 2021-0 Yes [id number] Take 2.5 UT MG tablet 6-02 mg po BID Healt h 00:00: for 5 days 00 then 5 mg po BID thereafter Baclofen 5 2021-0 Yes [id number] Take 2.5 UT MG tablet 6-02 mg po BID Healt h 00:00: for 5 days 00 then 5 mg po BID thereafter pregabalin 2021-0 2022- No [id number] 50mg Q.5D Take 1 UT (Lyrica) 50 10-30-03 capsule [facility]al [facility] MG capsule 00:00: 04:59 (50 mg 00 :00 total) by mouth 2 (two) times a day. naloxone 2021-0 2022- No [id number] 4mg Administer UT (Narcan) 4 - 06-03 05 1 spray (4 He alth mg/0.1 mL 00:00: 04:59 mg total) nasal spray 00 :00 into affected nostril(s) if needed for opioid reversal. May repeat every 2-3 minutes if needed, alternatin g nostrils, until medical assistance becomes available. pregabalin 2022- No [id number] 50mg Q.5D Take 1 UT (Lyrica) 50 10-30 capsule [facility]al th MG capsule 00:00: 04:59 (50 mg 00 :00 total) by mouth 2 (two) times a day. naloxone 2022- No [id number] 4mg Administer UT (Narcan) 4 10-30- 05 1 spray (4 He alth mg/0.1 mL 00:00: 04:59 mg total) nasal spray 00 :00 into affected nostril(s) if needed for opioid reversal. May repeat every 2-3 minutes if needed, alternatin g nostrils, until medical assistance becomes available. pregabalin 2022- No [id number] 50mg Q.5D Take 1 UT (Lyrica) 50 10-30 capsule [facility]al th MG capsule 00:00: 04:59 (50 mg 00 :00 total) by mouth 2 (two) times a day. naloxone 2022- No [id number] 4mg Administer UT (Narcan) 4 10-30- 05 1 spray (4 He alth mg/0.1 mL 00:00: 04:59 mg total) nasal spray 00 :00 into affected nostril(s) if needed for opioid reversal. May repeat every 2-3 minutes if needed, alternatin g nostrils, until medical assistance becomes available. pregabalin 2022- No [id number] 50mg Q.5D Take 1 UT (Lyrica) 50 10-30 capsule Heal th MG capsule 00:00: 04:59 (50 mg 00 :00 total) by mouth 2 (two) times a day. naloxone 2022- No [id number] 4mg Administer UT (Narcan) 4 10-30 06-03 05 1 spray (4 He alth mg/0.1 mL 00:00: 04:59 mg total) nasal spray 00 :00 into affected nostril(s) if needed for opioid reversal. May repeat every 2-3 minutes if needed, alternatin g nostrils, until medical assistance becomes available. pregabalin 2022- No [id number] 50mg Q.5D Take 1 UT (Lyrica) 50 10-30 capsule [facility]al th MG capsule 00:00: 04:59 (50 mg 00 :00 total) by mouth 2 (two) times a day. naloxone 2022- No [id number] 4mg Administer UT (Narcan) 4 6- 06- 05 1 spray (4 He alth mg/0.1 mL 00:00: 04:59 mg total) nasal spray 00 :00 into affected nostril(s) if needed for opioid reversal. May repeat every 2-3 minutes if needed, alternatin g nostrils, until medical assistance becomes available. pregabalin 2022- No [id number] 50mg Q.5D Take 1 UT (Lyrica) 50 10-30 capsule [facility]al th MG capsule 00:00: 04:59 (50 mg 00 :00 total) by mouth 2 (two) times a day. naloxone 2022- No [id number] 4mg Administer UT (Narcan) 4 10-30- 05 1 spray (4 He alth mg/0.1 mL 00:00: 04:59 mg total) nasal spray 00 :00 into affected nostril(s) if needed for opioid reversal. May repeat every 2-3 minutes if needed, alternatin g nostrils, until medical assistance becomes available. pregabalin 2022- No [id number] 50mg Q.5D Take 1 UT (Lyrica) 50 10-30 capsule [facility]al th MG capsule 00:00: 04:59 (50 mg 00 :00 total) by mouth 2 (two) times a day. naloxone 2022- No [id number] 4mg Administer UT (Narcan) 4 6 06-03 05 1 spray (4 He alth mg/0.1 mL 00:00: 04:59 mg total) nasal spray 00 :00 into affected nostril(s) if needed for opioid reversal. May repeat every 2-3 minutes if needed, alternatin g nostrils, until medical assistance becomes available. pregabalin 2022- No [id number] 50mg Q.5D Take 1 UT (Lyrica) 50 10-30 capsule [facility]al th MG capsule 00:00: 04:59 (50 mg 00 :00 total) by mouth 2 (two) times a day. naloxone 2022- No [id number] 4mg Administer UT (Narcan) 4 6- 06-03 05 1 spray (4 He alth mg/0.1 mL 00:00: 04:59 mg total) nasal spray 00 :00 into affected nostril(s) if needed for opioid reversal. May repeat every 2-3 minutes if needed, alternatin g nostrils, until medical assistance becomes available. pregabalin 2022- No [id number] 50mg Q.5D Take 1 UT (Lyrica) 50 10-30 capsule [facility]al th MG capsule 00:00: 04:59 (50 mg 00 :00 total) by mouth 2 (two) times a day. naloxone 2022- No [id number] 4mg Administer UT (Narcan) 4 10-30- 05 1 spray (4 He alth mg/0.1 mL 00:00: 04:59 mg total) nasal spray 00 :00 into affected nostril(s) if needed for opioid reversal. May repeat every 2-3 minutes if needed, alternatin g nostrils, until medical assistance becomes available. pregabalin 2022- No [id number] 50mg Q.5D Take 1 UT (Lyrica) 50 10-30 capsule Heal th MG capsule 00:00: 04:59 (50 mg 00 :00 total) by mouth 2 (two) times a day. pregabalin 2022- No [id number] 50mg Q.5D Take 1 UT (Lyrica) 50 10-30 capsule [facility]al th MG capsule 00:00: 04:59 (50 mg 00 :00 total) by mouth 2 (two) times a day. naloxone 2022- No [id number] 4mg Administer UT (Narcan) 4 6- 06-03 05 1 spray (4 He alth mg/0.1 mL 00:00: 04:59 mg total) nasal spray 00 :00 into affected nostril(s) if needed for opioid reversal. May repeat every 2-3 minutes if needed, alternatin g nostrils, until medical assistance becomes available. naloxone 2022- No [id number] 4mg Administer UT (Narcan) 4 10-30- 05 1 spray (4 He alth mg/0.1 mL 00:00: 04:59 mg total) nasal spray 00 :00 into affected nostril(s) if needed for opioid reversal. May repeat every 2-3 minutes if needed, alternatin g nostrils, until medical assistance becomes available. pregabalin 2022- No [id number] 50mg Q.5D Take 1 UT (Lyrica) 50 10-30 capsule [facility]al th MG capsule 00:00: 04:59 (50 mg 00 :00 total) by mouth 2 (two) times a day. naloxone 2022- No [id number] 4mg Administer UT (Narcan) 4 10-30 05 1 spray (4 He alth mg/0.1 mL 00:00: 04:59 mg total) nasal spray 00 :00 into affected nostril(s) if needed for opioid reversal. May repeat every 2-3 minutes if needed, alternatin g nostrils, until medical assistance becomes available. pregabalin 2022- No [id number] 50mg Q.5D Take 1 UT (Lyrica) 50 10-30 capsule Heal th MG capsule 00:00: 04:59 (50 mg 00 :00 total) by mouth 2 (two) times a day. naloxone 2022- No [id number] 4mg Administer UT (Narcan) 4 10-30 05 1 spray (4 He alth mg/0.1 mL 00:00: 04:59 mg total) nasal spray 00 :00 into affected nostril(s) if needed for opioid reversal. May repeat every 2-3 minutes if needed, alternatin g nostrils, until medical assistance becomes available. pregabalin 2022- No [id number] 50mg Q.5D Take 1 UT (Lyrica) 50 10-30 capsule Heal th MG capsule 00:00: 04:59 (50 mg 00 :00 total) by mouth 2 (two) times a day. naloxone 2022- No [id number] 4mg Administer UT (Narcan) 4 10-30 05 1 spray (4 He alth mg/0.1 mL 00:00: 04:59 mg total) nasal spray 00 :00 into affected nostril(s) if needed for opioid reversal. May repeat every 2-3 minutes if needed, alternatin g nostrils, until medical assistance becomes available. pregabalin 2022- No [id number] 50mg Q.5D Take 1 UT (Lyrica) 50 10-30 capsule Heal th MG capsule 00:00: 04:59 (50 mg 00 :00 total) by mouth 2 (two) times a day. naloxone 2022- No [id number] 4mg Administer UT (Narcan) 4 10-30 05 1 spray (4 He alth mg/0.1 mL 00:00: 04:59 mg total) nasal spray 00 :00 into affected nostril(s) if needed for opioid reversal. May repeat every 2-3 minutes if needed, alternatin g nostrils, until medical assistance becomes available. pregabalin 2022- No [id number] 50mg Q.5D Take 1 UT (Lyrica) 50 10-30 capsule Heal th MG capsule 00:00: 04:59 (50 mg 00 :00 total) by mouth 2 (two) times a day. naloxone 2022- No [id number] 4mg Administer UT (Narcan) 4 10-30 05 1 spray (4 He alth mg/0.1 mL 00:00: 04:59 mg total) nasal spray 00 :00 into affected nostril(s) if needed for opioid reversal. May repeat every 2-3 minutes if needed, alternatin g nostrils, until medical assistance becomes available. pregabalin 2022- No [id number] 50mg Q.5D Take 1 UT (Lyrica) 50 10-30 capsule Heal th MG capsule 00:00: 04:59 (50 mg 00 :00 total) by mouth 2 (two) times a day. naloxone 2022- No [id number] 4mg Administer UT (Narcan) 4 10-30 05 1 spray (4 He alth mg/0.1 mL 00:00: 04:59 mg total) nasal spray 00 :00 into affected nostril(s) if needed for opioid reversal. May repeat every 2-3 minutes if needed, alternatin g nostrils, until medical assistance becomes available. pregabalin 2022- No [id number] 50mg Q.5D Take 1 UT (Lyrica) 50 10-30 capsule Heal th MG capsule 00:00: 04:59 (50 mg 00 :00 total) by mouth 2 (two) times a day. naloxone 2022- No [id number] 4mg Administer UT (Narcan) 4 10-30 05 1 spray (4 He alth mg/0.1 mL 00:00: 04:59 mg total) nasal spray 00 :00 into affected nostril(s) if needed for opioid reversal. May repeat every 2-3 minutes if needed, alternatin g nostrils, until medical assistance becomes available. Baclofen 5 2021- No [id number] Take 2.5 UT MG tablet 10-30-28 mg po BID Heal th 00:00: 00:00 for 5 days 00 :00 then 5 mg po BID thereafter Occupationa Yes See [facility] 10-11 Instructio l 19:26: ns, MISC, [place] ONCALL, Evaluate and Treat 3 times per week for 4 weeks, # 1 ea, 0 Refill(s) Physical Yes See [facility] 10-11 Instructio l 19:26: ns, MISC, [place] ONCALL, Evaluate and Treat 3 times per week for 4 weeks, # 1 ea, 0 Refill(s) Occupationa Yes See [facility] 10-11 Instructio l 19:26: ns, MISC, [place] ONCALL, Evaluate and Treat 3 times per week for 4 weeks, # 1 ea, 0 Refill(s) Physical Yes See [facility] 10-11 Instructio l 19:26: ns, MISC, [place] ONCALL, Evaluate and Treat 3 times per week for 4 weeks, # 1 ea, 0 Refill(s) Occupationa Yes See [facility] 14 Instructio l 19:26: ns, MISC, [place] 00 ONCALL, Evaluate and Treat 3 times per week for 4 weeks, # 1 ea, 0 Refill(s) Physical Yes See [facility] 14 Instructio l 19:26: ns, MISC, [place] 00 ONCALL, Evaluate and Treat 3 times per week for 4 weeks, # 1 ea, 0 Refill(s) Robaxin 500 Yes 500 mg = 1 Memoria mg oral 5-13 tab, PO, l tablet 20:48: Q8H, PRN [place] 00 Spasms, X 20 day, # 60 tab, 0 Refill(s), Pharmacy: [facility] #[id number], 175.26, cm, 10/09/21 12:22:00 CDT, Height, 74.5, kg, 10/09/21 12:22:00 CDT, Weight Tylenol Yes 1 - 2 tab, Chapin oliva with 5-13 PO, Q4H, l Codeine #3 20:48: PRN Pain, He rmann oral tablet 00 X 14 day, # 60 tab, 0 Refill(s), Pharmacy: [facility] #[id number], 175.26, cm, 10/09/21 12:22:00 CDT, Height, 74.5, kg, 10/09/21 12:22:00 CDT, Weight Robaxin 500 Yes 500 mg = 1 Memoria mg oral 5-13 tab, PO, l tablet 20:48: Q8H, PRN [place] 00 Spasms, X 20 day, # 60 tab, 0 Refill(s), Pharmacy: [facility] #[id number], 175.26, cm, 10/09/21 12:22:00 CDT, Height, 74.5, kg, 10/09/21 12:22:00 CDT, Weight Tylenol Yes 1 - 2 tab, Chapin oliva with 5-13 PO, Q4H, l Codeine #3 20:48: PRN Pain, He rmann oral tablet 00 X 14 day, # 60 tab, 0 Refill(s), Pharmacy: [facility] #[id number], 175.26, cm, 10/09/21 12:22:00 CDT, Height, 74.5, kg, 10/09/21 12:22:00 CDT, Weight Robaxin 500 2021-0 Yes 500 mg = 1 Memoria mg oral 5-13 tab, PO, l tablet 20:48: Q8H, PRN [place] 00 Spasms, X 20 day, # 60 tab, 0 Refill(s), Pharmacy: [facility] #[id number], 175.26, cm, 10/09/21 12:22:00 CDT, Height, 74.5, kg, 10/09/21 12:22:00 CDT, Weight Tylenol 0 Yes 1 - 2 tab, Chapin oliva with 5-13 PO, Q4H, l Codeine #3 20:48: PRN Pain, He rmann oral tablet 00 X 14 day, # 60 tab, 0 Refill(s), Pharmacy: [facility] #[id number], 175.26, cm, 10/09/21 12:22:00 CDT, Height, 74.5, kg, 10/09/21 12:22:00 CDT, Weight docusate 0 Yes 100 mg = 1 Mem oria sodium 100 5-13 cap, PO, l mg oral 20:45: BID, PRN Gualberto n capsule 00 as needed for constipati on, Pediatric Dosing, # 60 cap, 0 Refill(s), Pharmacy: [facility] #[id number], 175.26, cm, 10/09/21 12:22:00 CDT, Height, 74.5, kg, 10/09/21 12:22:00 CDT, Weight gabapentin 2021-0 Yes 300 mg = 1 M emoria 300 mg oral 5-13 cap, PO, l capsule 20:45: BID, # 60 Audra nn 00 cap, 0 Refill(s), Pharmacy: [facility] #[id number], 175.26, cm, 10/09/21 12:22:00 CDT, Height, 74.5, kg, 10/09/21 12:22:00 CDT, Weight docusate 2021-0 Yes 100 mg = 1 Mem oria sodium 100 5-13 cap, PO, l mg oral 20:45: BID, PRN Gualberto n capsule 00 as needed for constipati on, Pediatric Dosing, # 60 cap, 0 Refill(s), Pharmacy: [facility] #[id number], 175.26, cm, 10/09/21 12:22:00 CDT, Height, 74.5, kg, 10/09/21 12:22:00 CDT, Weight gabapentin 2-0 Yes 300 mg = 1 M emoria 300 mg oral 5-13 cap, PO, l capsule 20:45: BID, # 60 Audra nn 00 cap, 0 Refill(s), Pharmacy: [facility] #[id number], 175.26, cm, 10/09/21 12:22:00 CDT, Height, 74.5, kg, 10/09/21 12:22:00 CDT, Weight docusate 2-0 Yes 100 mg = 1 Mem oria sodium 100 5-13 cap, PO, l mg oral 20:45: BID, PRN Gualberto n capsule 00 as needed for constipati on, Pediatric Dosing, # 60 cap, 0 Refill(s), Pharmacy: [facility] #[id number], 175.26, cm, 10/09/21 12:22:00 CDT, Height, 74.5, kg, 10/09/21 12:22:00 CDT, Weight gabapentin 2-0 Yes 300 mg = 1 M emoria 300 mg oral 5-13 cap, PO, l capsule 20:45: BID, # 60 Audra nn 00 cap, 0 Refill(s), [facility]: [facility] #[id number], 175.26, cm, 10/09/21 12:22:00 CDT, Height, 74.5, kg, 10/09/21 12:22:00 CDT, Weight tizanidine 2022-0 Yes 4 mg = 1 Mem oria 4 mg oral 5-13 cap, PO, l capsule 20:28: TID [place] 00 tizanidine 2022-0 Yes 4 mg = 1 Mem oria 4 mg oral 5-13 cap, PO, l capsule 20:28: TID [place] 00 tizanidine 2022-0 Yes 4 mg = 1 Mem oria 4 mg oral 5-13 cap, PO, l capsule 20:28: TID gabapentin No 300 mg = 1 M emoria 300 mg oral 5-13 cap, PO, l capsule 20:19: BID naproxen Yes 500 mg = 1 Mem oria 500 mg oral 5-13 tab, PO, l tablet 20:19: BID trazodone Yes 50 mg = 1 Mem oria 50 mg oral 5-13 tab, PO, l tablet 20:19: Bedtime gabapentin No 300 mg = 1 M emoria 300 mg oral 5-13 cap, PO, l capsule 20:19: BID naproxen Yes 500 mg = 1 Mem oria 500 mg oral 5-13 tab, PO, l tablet 20:19: BID trazodone Yes 50 mg = 1 Mem oria 50 mg oral 5-13 tab, PO, l tablet 20:19: Bedtime gabapentin No 300 mg = 1 M emoria 300 mg oral 5-13 cap, PO, l capsule 20:19: BID naproxen Yes 500 mg = 1 Mem oria 500 mg oral 5-13 tab, PO, l tablet 20:19: BID trazodone 0 Yes 50 mg = 1 Mem oria 50 mg oral 5-13 tab, PO, l tablet 20:19: Bedtime FLUoxetine Yes 10 mg = 1 Me moria 10 mg oral 5-13 cap, PO, l capsule 20:18: Daily [place] 5/325 0 Yes 1 tab, PO, Memoria oral tablet 5-13 BID, PRN l 20:18: pain, # [place] 00 14, 0 Refill(s) FLUoxetine Yes 10 mg = 1 Me moria 10 mg oral 5-13 cap, PO, l capsule 20:18: Daily [place] 5/325 0 Yes 1 tab, PO, Memoria oral tablet 5-13 BID, PRN l 20:18: pain, # [place] 00 14, 0 Refill(s) FLUoxetine 2022-0 Yes 10 mg = 1 Me moria 10 mg oral 5-13 cap, PO, l capsule 20:18: Daily [place] 5/325 Yes 1 tab, PO, Memoria oral tablet 5-13 BID, PRN l 20:18: pain, # 14, 0 Refill(s) Lovenox No Notes: Memoria 5-13 (Same as: l 15:00: Lovenox) Lovenox No Notes: Memoria 5-13 (Same as: l 15:00: Lovenox) Lovenox No Notes: Memoria 5-13 (Same as: l 15:00: Lovenox) FLUoxetine No Notes: Memor ia 5-13 (Same as: l 14:00: Prozac) FLUoxetine No Notes: Memor ia 5-13 (Same as: l 14:00: Prozac) FLUoxetine No Notes: Memor ia 5-13 (Same as: l 14:00: Prozac) Ancef No Notes: [facility]oria 5-13 (Same as l 02:30: Ancef) Ancef No Notes: [facility] 5-13 (Same as l 02:30: Ancef) Ancef No Notes: [facility] 5-13 (Same as l 02:30: Ancef) acetaminoph Yes TAKE 1 TO U T en-codeine 5-13 2 TABLETS [facility]al [facility] (Tylenol 00:00: BY MOUTH #3) 300-30 00 EVERY 4 MG tablet HOURS FOR 14 DAYS NEEDED FOR PAIN acetaminoph Yes TAKE 1 TO U T en-codeine 5-13 2 TABLETS [facility]al [facility] (Tylenol 00:00: BY MOUTH #3) 300-30 00 EVERY 4 MG tablet HOURS FOR 14 DAYS NEEDED FOR PAIN acetaminoph Yes TAKE 1 TO U T en-codeine 5-13 2 TABLETS [facility]al [facility] (Tylenol 00:00: BY MOUTH #3) 300-30 00 EVERY 4 MG tablet HOURS FOR 14 DAYS NEEDED FOR PAIN acetaminoph 2022-0 Yes TAKE 1 TO U T en-codeine 5-13 2 TABLETS [facility]al [facility] (Tylenol 00:00: BY MOUTH #3) 300-30 00 EVERY 4 MG tablet HOURS FOR 14 DAYS NEEDED FOR PAIN acetaminoph 2022-0 Yes TAKE 1 TO U T en-codeine 5-13 2 TABLETS [facility]al [facility] (Tylenol 00:00: BY MOUTH #3) 300-30 00 EVERY 4 MG tablet HOURS FOR 14 DAYS NEEDED FOR PAIN acetaminoph 2022-0 Yes TAKE 1 TO U T en-codeine 5-13 2 TABLETS [facility]al [facility] (Tylenol 00:00: BY MOUTH #3) 300-30 00 EVERY 4 MG tablet HOURS FOR 14 DAYS NEEDED FOR PAIN acetaminoph 2022-0 Yes TAKE 1 TO U T en-codeine 5-13 2 TABLETS [facility]al th (Tylenol 00:00: BY MOUTH #3) 300-30 00 EVERY 4 MG tablet HOURS FOR 14 DAYS NEEDED FOR PAIN acetaminoph 2022-0 Yes TAKE 1 TO U T en-codeine 5-13 2 TABLETS [facility]al th (Tylenol 00:00: BY MOUTH #3) 300-30 00 EVERY 4 MG tablet HOURS FOR 14 DAYS NEEDED FOR PAIN acetaminoph 2022-0 Yes TAKE 1 TO U T en-codeine 5-13 2 TABLETS [facility]al th (Tylenol 00:00: BY MOUTH #3) 300-30 00 EVERY 4 MG tablet HOURS FOR 14 DAYS NEEDED FOR PAIN acetaminoph 2022-0 Yes TAKE 1 TO U T en-codeine 5-13 2 TABLETS [facility]al [facility] (Tylenol 00:00: BY MOUTH #3) 300-30 00 EVERY 4 MG tablet HOURS FOR 14 DAYS NEEDED FOR PAIN acetaminoph 2022-0 Yes TAKE 1 TO U T en-codeine 5-13 2 TABLETS [facility]al [facility] (Tylenol 00:00: BY MOUTH #3) 300-30 00 EVERY 4 MG tablet HOURS FOR 14 DAYS NEEDED FOR PAIN acetaminoph 2022-0 Yes TAKE 1 TO U T en-codeine 5-13 2 TABLETS [facility]al th (Tylenol 00:00: BY MOUTH #3) 300-30 00 EVERY 4 MG tablet HOURS FOR 14 DAYS NEEDED FOR PAIN gabapentin 2022-0 2022- No 300mg Q.5D Take 300 U T (Neurontin) 5-13 06-02 mg by [facility] 300 MG 00:00: 00:00 mouth 2 capsule 00 :00 (two) times a day. Ancef 0 No Notes: Memoria 5-12 (Same as l 21:00: Ancef) gabapentin No Notes: Memor ia 5-12 (Same as: l 21:00: Neurontin) Lovenox 0 No 30 mg, Memoria 5-12 Route: l 21:00: SUB-Q, [place] 00 Drug form: INJ, [id number], Dosing Weight 74.5, kg, Start date: 10/09/21 16:00:00 CDT, Stop date: 11/09/21 10:00:00 CDT Ancef 0 No Notes: Memoria 5-12 (Same as l 21:00: Ancef) gabapentin No Notes: Memor ia 5-12 (Same as: l 21:00: Neurontin) Lovenox 0 No 30 mg, Memoria 5-12 Route: l 21:00: SUB-Q, Drug form: INJ, [id number], Dosing Weight 74.5, kg, Start date: 10/09/21 16:00:00 CDT, Stop date: 11/09/21 10:00:00 CDT Ancef 0 No Notes: Memoria 5-12 (Same as l 21:00: Ancef) gabapentin 0 No Notes: Memor ia 5-12 (Same as: l 21:00: Neurontin) Lovenox 0 No 30 mg, Memoria 5-12 Route: l 21:00: SUB-Q, Drug form: INJ, [id number], Dosing Weight 74.5, kg, Start date: 10/09/21 16:00:00 CDT, Stop date: 11/09/21 10:00:00 CDT sugammadex 2-0 No Route: IV, M emoria (ANES) 5-12 Drug form: l 20:22: SOLN, [place] 00 ONCE, Stop date: 10/09/21 15:22:00 CDT sugammadex 2-0 No Route: IV, M emoria (ANES) 5-12 Drug form: l 20:22: SOLN, ONCE, Stop date: 10/09/21 15:22:00 CDT sugammadex 2021-0 No Route: IV, M emoria (ANES) 5-12 Drug form: l 20:22: SOLN, ONCE, Stop date: 10/09/21 15:22:00 CDT ondansetron 2021-0 No Route: IV, Memoria (ANES) 5-12 Drug form: l 19:56: INJ, ONCE, Stop date: 10/09/21 14:56:00 CDT ondansetron 2021-0 No Route: IV, Memoria (ANES) 5-12 Drug form: l 19:56: INJ, ONCE, Stop date: 10/09/21 14:56:00 CDT ondansetron 2021-0 No Route: IV, Memoria (ANES) 5-12 Drug form: l 19:56: INJ, ONCE, Stop date: 10/09/21 14:56:00 CDT dexamethaso 2021-0 No Route: IV, Memoria ne (ANES) 5-12 Drug form: l 19:15: INJ, ONCE, Stop date: 10/09/21 14:15:00 CDT dexamethaso 2021-0 No Route: IV, Memoria ne (ANES) 5-12 Drug form: l 19:15: INJ, ONCE, Stop date: 10/09/21 14:15:00 CDT dexamethaso 2021-0 No Route: IV, Memoria ne (ANES) 5-12 Drug form: l 19:15: INJ, ONCE, Stop date: 10/09/21 14:15:00 CDT rocuronium 2021-0 No Route: IV, M emoria (ANES) 5-12 Drug form: l 19:10: INJ, ONCE, Stop date: 10/09/21 14:10:00 CDT fentaNYL 2-0 No Route: IV, Mem oria (ANES) 5-12 Drug form: l 19:10: INJ, ONCE, Stop date: 10/09/21 14:10:00 CDT phenylephri 2021-0 No Route: IV, Memoria ne (ANES) 5-12 Drug form: l 19:10: INJ, ONCE, Stop date: 10/09/21 14:10:00 CDT lidocaine 2021-0 No Route: IV, Me moria (ANES) 5-12 Drug form: l 19:10: INJ, ONCE, Stop date: 10/09/21 14:10:00 CDT propofol 2021-0 No Route: IV, Mem oria (ANES) 5-12 Drug form: l 19:10: INJ, ONCE, Stop date: 10/09/21 14:10:00 CDT rocuronium 2021-0 No Route: IV, M emoria (ANES) 5-12 Drug form: l 19:10: INJ, ONCE, Stop date: 10/09/21 14:10:00 CDT fentaNYL 2021-0 No Route: IV, Mem oria (ANES) 5-12 Drug form: l 19:10: INJ, ONCE, Stop date: 10/09/21 14:10:00 CDT phenylephri 2021-0 No Route: IV, Memoria ne (ANES) 5-12 Drug form: l 19:10: INJ, ONCE, Stop date: 10/09/21 14:10:00 CDT lidocaine 2021-0 No Route: IV, Me moria (ANES) 5-12 Drug form: l 19:10: INJ, ONCE, Stop date: 10/09/21 14:10:00 CDT propofol 2021-0 No Route: IV, Mem oria (ANES) 5-12 Drug form: l 19:10: INJ, ONCE, Stop date: 10/09/21 14:10:00 CDT rocuronium 2021-0 No Route: IV, M emoria (ANES) 5-12 Drug form: l 19:10: INJ, ONCE, Stop date: 10/09/21 14:10:00 CDT fentaNYL 2021-0 No Route: IV, Mem oria (ANES) 5-12 Drug form: l 19:10: INJ, ONCE, Stop date: 10/09/21 14:10:00 CDT phenylephri 2021-0 No Route: IV, Memoria ne (ANES) 5-12 Drug form: l 19:10: INJ, ONCE, [place] 00 Stop date: 10/09/21 14:10:00 CDT lidocaine 2021-0 No Route: IV, Me moria (ANES) 5-12 Drug form: l 19:10: INJ, ONCE, Stop date: 10/09/21 14:10:00 CDT propofol 2021-0 No Route: IV, Mem oria (ANES) 5-12 Drug form: l 19:10: INJ, ONCE, Stop date: 10/09/21 14:10:00 CDT midazolam 2021-0 No Route: IV, Me moria (ANES) 5-12 Drug form: l 18:55: SOLN, [place] ONCE, Stop date: 10/09/21 13:55:00 CDT midazolam 2021-0 No Route: IV, Me moria (ANES) 5-12 Drug form: l 18:55: SOLN, [place] 00 ONCE, Stop date: 10/09/21 13:55:00 CDT midazolam 2021-0 No Route: IV, Me moria (ANES) 5-12 Drug form: l 18:55: SOLN, [place] 00 ONCE, Stop date: 10/09/21 13:55:00 CDT ceFAZolin 2021-0 No Route: IV, Me moria (ANES) 5-12 Drug form: l 18:49: INJ, ONCE, Stop date: 10/09/21 13:49:00 CDT ceFAZolin 2021-0 No Route: IV, Me moria (ANES) 5-12 Drug form: l 18:49: INJ, ONCE, Stop date: 10/09/21 13:49:00 CDT ceFAZolin 2021-0 No Route: IV, Me moria (ANES) 5-12 Drug form: l 18:49: INJ, ONCE, [place] 00 Stop date: 10/09/21 13:49:00 CDT ANES 2021-0 No Notes: Memoria hydrALAZINE 5-12 (Same as: l 18:31: Apresoline [place] ) Push over 5 minutes ANES No 10 mg, 2 Memoria labetalol 5-12 mL, Route: l 18:31: IVP, Drug [place] 00 form: INJ, Q5Min, Dosing Weight 74.5, kg, PRN Elevated BP, Start date: 10/09/21 13:31:00 CDT, Duration: 5 doses or times, Stop date: 10/10/21 0:00:00 CDT, 0 ANES No Notes: Max Memoria acetaminoph 5-12 acetaminop l en 18:31: hen 4000 [place] 00 mg/day (4 gm/day). (Same as: Tylenol Extra Strength) ANES No Notes: Memoria oxyCODONE 5 5-12 (Same as: l mg 18:31: Roxicodone [place] immediate ) release tablet ANES No Notes: Memoria HYDROmorpho 5-12 Same as l ne 18:31: Dilaudid [place] 00 ANE No Notes: Memoria fentaNYL 5-12 (Same as: l 18:31: Sublimaze) Preservati ve free. ANE No Notes: Memoria flumazenil 5-12 (Same as: l 18:31: Romazicon) [place] 00 ANES No Notes: Memoria naloxone 5-12 Same as l 18:31: Narcan [place] 00 ANES No Notes: Do Memoria promethazin 5-12 not give l e + Sodium 18:31: IV push. Her grimaldo Chloride 00 (Same as: 0.9% IV 50 Phenergan) mL ANES No Notes: Memoria hydrALAZINE 5-12 (Same as: l 18:31: Apresoline [place] 00 ) Push over 5 minutes ANES No 10 mg, 2 Memoria labetalol 5-12 mL, Route: l 18:31: IVP, Drug [place] form: INJ, Q5Min, Dosing Weight 74.5, kg, PRN Elevated BP, Start date: 10/09/21 13:31:00 CDT, Duration: 5 doses or times, Stop date: 10/10/21 0:00:00 CDT, 0 ANES No Notes: Max Memoria acetaminoph 5-12 acetaminop l en 18:31: hen 4000 [place] 00 mg/day (4 gm/day). (Same as: Tylenol Extra Strength) ANES No Notes: Memoria oxyCODONE 5 5-12 (Same as: l mg 18:31: Roxicodone [place] ) release tablet ANES No Notes: Memoria HYDROmorpho 5-12 Same as l ne 18:31: Dilaudid ANES No Notes: Memoria fentaNYL 5-12 (Same as: l 18:31: Sublimaze) Preservati ve free. ANE No Notes: Memoria flumazenil 5-12 (Same as: l 18:31: Romazicon) ANES No Notes: Memoria naloxone 5-12 Same as l 18:31: Narcan No Notes: Do Memoria promethazin 5-12 not give l e + Sodium 18:31: IV push. Her gr[place] Chloride 00 (Same as: 0.9% IV 50 Phenergan) mL ANE No Notes: Memoria hydrALAZINE 5-12 (Same as: l 18:31: Apresoline ) Push over 5 minutes ANES No 10 mg, 2 Memoria labetalol 5-12 mL, Route: l 18:31: IVP, Drug form: INJ, Q5Min, Dosing Weight 74.5, kg, PRN Elevated BP, Start date: 10/09/21 13:31:00 CDT, Duration: 5 doses or times, Stop date: 10/10/21 0:00:00 CDT, 0 ANES No Notes: Max Memoria acetaminoph 5-12 acetaminop l en 18:31: hen 4000 [place] 00 mg/day (4 gm/day). (Same as: Tylenol Extra Strength) ANES No Notes: Memoria oxyCODONE 5 5-12 (Same as: l mg 18:31: Roxicodone [place] immediate 00 ) release tablet ANES No Notes: Memoria HYDROmorpho 5-12 Same as l ne 18:31: Dilaudid 00 ANES No Notes: Memoria fentaNYL 5-12 (Same as: l 18:31: Sublimaze) 00 Preservati ve free. ANES No Notes: Memoria flumazenil 5-12 (Same as: l 18:31: Romazicon) [place] ANES No Notes: Memoria naloxone 5-12 Same as l 18:31: Narcan [place] ANES No Notes: Do Memoria promethazin 5-12 not give l e + Sodium 18:31: IV push. Her grimal[place] Chloride 00 (Same as: 0.9% IV 50 Phenergan) mL Isolyte S No Route: IV, Me moria PH 7.4 5-12 Total l (ANES) 1000 18:05: Volume: Her grimaldo mL 00 1,000, Start date: 10/09/21 13:05:00 CDT, Stop date: 10/09/21 14:05:00 CDT Isolyte S No Route: IV, Me moria PH 7.4 5-12 Total l (ANES) 1000 18:05: Volume: Her grimal[place] mL 00 1,000, Start date: 10/09/21 13:05:00 CDT, Stop date: 10/09/21 14:05:00 CDT Isolyte S No Route: IV, Me moria PH 7.4 5-12 Total l (ANES) 1000 18:05: Volume: Her grimal[place] mL 00 1,000, Start date: 10/09/21 13:05:00 CDT, Stop date: 10/09/21 14:05:00 CDT acetaminoph No Notes: Max Memoria en 5-12 acetaminop l 17:00: hen 4000 [place] 00 mg/day (4 gm/day). (Same as: Tylenol Extra Strength) acetaminoph No Notes: Max Memoria en 5-12 acetaminop l 17:00: hen 4000 [place] 00 mg/day (4 gm/day). (Same as: Tylenol Extra Strength) acetaminoph No Notes: Max Memoria en 5-12 acetaminop l 17:00: hen 4000 [place] 00 mg/day (4 gm/day). (Same as: Tylenol Extra Strength) potassium No Notes: Memori a chloride 5-12 (Same as: l 16:58: KCL) 10 [place] 00 mEq/100ml product recommende d for peripheral line administra tion. Infuse no faster than 10 mEq/hr if given peripheral ly. sodium No Notes: Memoria phosphate 5-12 Infuse l 16:58: over 4 [place] 00 hour. Do not infuse phosphorou s concurrent ly in the same line as TPN or IVF that contains calcium. For double lumen central lines, phosphorou s may be infused in a separate lumen from TPN. sodium No Notes: Memoria phosphate + 5-12 Infuse l Sodium 16:58: over 4 [place] Chloride 00 hour. Do 0.9% IV 250 not infuse mL phosphorou s concurrent ly in the same line as TPN or IVF that contains calcium. For double lumen central lines, phosphorou s may be infused in a separate lumen from TPN. potassium No Notes: Memori a phosphate 5-12 (Same as: l 16:58: K [place] 00 Phosphate) Infuse over 4 hour. Do not infuse phosphorou s concurrent ly in the same line as TPN or IVF that contains calcium. For double lumen central lines, phosphorou s may be infused in a separate lumen from TPN. potassium No Notes: Memori a phosphate + 5-12 (Same as: l Sodium 16:58: K [place] Chloride 00 Phosphate. 0.9% IV 250 ) Do not mL infuse phosphorou s concurrent ly in the same line as TPN or IVF that contains calcium. For double lumen central lines, phosphorou s may be infused in a separate lumen from TPN. 1 mMol phoshate has 1.47 mEq potassium Infuse over 4 hours potassium No Notes: Memori a phosphate-s 5-12 (Same as: l odium 16:58: Phos-NaK) [place] phosphate 00 Each 1.5 250 mg-280 gm pkt has mg-160 mg 250mg oral powder phosphorou for s. Mix reconstitut w/2.5oz ion water and stir. magnesium No Notes: Memori a sulfate 5-12 WASTE: F/P l 16:58: - Sink; E [place] 00 - Municipal Trash Bin magnesium No Notes: Memori a oxide 5-12 (Same as: l 16:58: Mag-Ox [place] 00 400) Magnesium oxide [id number] g elemental magnesium Dose=____m g magnesium oxide (___mg elemental magnesium) calcium No Notes: Memoria gluconate 5-12 Contains: l 16:58: calcium [place] 00 gluconate 20mg/mL NaCl 0.67% 50mL WASTE: F/P - Sink; E - Municipal Trash Bin calcium No Notes: Memoria carbonate 5-12 (Same As: l 500 mg (200 16:58: Tums) Audra nn mg 00 Calcium elemental Carbonate calcium) 500 mg = oral tablet 200 mg elemental calcium Dose = mg calcium carbonate ( mg elemental calcium) potassium No Notes: Memori a chloride 5-12 (Same as: l 16:58: KCL) 10 [place] 00 mEq/100ml product recommende d for peripheral line administra tion. Infuse no faster than 10 mEq/hr if given peripheral ly. sodium No Notes: Memoria phosphate 5-12 Infuse l 16:58: over 4 [place] 00 hour. Do not infuse phosphorou s concurrent ly in the same line as TPN or IVF that contains calcium. For double lumen central lines, phosphorou s may be infused in a separate lumen from TPN. sodium No Notes: Memoria phosphate + 5-12 Infuse l Sodium 16:58: over 4 [place] Chloride 00 hour. Do 0.9% IV 250 not infuse mL phosphorou s concurrent ly in the same line as TPN or IVF that contains calcium. For double lumen central lines, phosphorou s may be infused in a separate lumen from TPN. potassium No Notes: Memori a phosphate 5-12 (Same as: l 16:58: K [place] 00 Phosphate) Infuse over 4 hour. Do not infuse phosphorou s concurrent ly in the same line as TPN or IVF that contains calcium. For double lumen central lines, phosphorou s may be infused in a separate lumen from TPN. potassium No Notes: Memori a phosphate + 5-12 (Same as: l Sodium 16:58: K [place] Chloride 00 Phosphate. 0.9% IV 250 ) Do not mL infuse phosphorou s concurrent ly in the same line as TPN or IVF that contains calcium. For double lumen central lines, phosphorou s may be infused in a separate lumen from TPN. 1 mMol phoshate has 1.47 mEq potassium Infuse over 4 hours potassium No Notes: Memori a phosphate-s 5-12 (Same as: l odium 16:58: Phos-NaK) [place] phosphate 00 Each 1.5 250 mg-280 gm pkt has mg-160 mg 250mg oral powder phosphorou for s. Mix reconstitut w/2.5oz ion water and stir. magnesium No Notes: Memori a sulfate - WASTE: F/P l 16:58: - Sink; E [place] 00 - Municipal Trash Bin magnesium No Notes: Memori a oxide 5-12 (Same as: l 16:58: Mag-Ox [place] 00 400) Magnesium oxide [id number] g elemental magnesium Dose=____m g magnesium oxide (___mg elemental magnesium) calcium No Notes: Memoria gluconate 5-12 Contains: l 16:58: calcium [place] 00 gluconate 20mg/mL NaCl 0.67% 50mL WASTE: F/P - Sink; E - Municipal Trash Bin calcium No Notes: Memoria carbonate 5-12 (Same As: l 500 mg (200 16:58: Tums) Audra nn mg 00 Calcium elemental Carbonate calcium) 500 mg = oral tablet 200 mg elemental calcium Dose = mg calcium carbonate ( mg elemental calcium) potassium No Notes: Memori a chloride 5-12 (Same as: l 16:58: KCL) 10 [place] 00 mEq/100ml product recommende d for peripheral line administra tion. Infuse no faster than 10 mEq/hr if given peripheral ly. sodium No Notes: Memoria phosphate 5-12 Infuse l 16:58: over 4 [place] 00 hour. Do not infuse phosphorou s concurrent ly in the same line as TPN or IVF that contains calcium. For double lumen central lines, phosphorou s may be infused in a separate lumen from TPN. sodium No Notes: Memoria phosphate + 5-12 Infuse l Sodium 16:58: over 4 [place] Chloride 00 hour. Do 0.9% IV 250 not infuse mL phosphorou s concurrent ly in the same line as TPN or IVF that contains calcium. For double lumen central lines, phosphorou s may be infused in a separate lumen from TPN. potassium No Notes: Memori a phosphate 5-12 (Same as: l 16:58: K [place] 00 Phosphate) Infuse over 4 hour. Do not infuse phosphorou s concurrent ly in the same line as TPN or IVF that contains calcium. For double lumen central lines, phosphorou s may be infused in a separate lumen from TPN. potassium No Notes: Memori a phosphate + 5-12 (Same as: l Sodium 16:58: K [place] Chloride 00 Phosphate. 0.9% IV 250 ) Do not mL infuse phosphorou s concurrent ly in the same line as TPN or IVF that contains calcium. For double lumen central lines, phosphorou s may be infused in a separate lumen from TPN. 1 mMol phoshate has 1.47 mEq potassium Infuse over 4 hours potassium No Notes: Memori a phosphate-s -12 (Same as: l odium 16:58: Phos-NaK) [place] phosphate 00 Each 1.5 250 mg-280 gm pkt has mg-160 mg 250mg oral powder phosphorou for s. Mix reconstitut w/2.5oz ion water and stir. magnesium No Notes: Memori a sulfate 10-09 WASTE: F/P l 16:58: - Sink; E [place] 00 - Municipal Trash Bin magnesium No Notes: Memori a oxide -12 (Same as: l 16:58: Mag-Ox [place] 00 400) Magnesium oxide [id number] g elemental magnesium Dose=____m g magnesium oxide (___mg elemental magnesium) calcium No Notes: Memoria gluconate 5-12 Contains: l 16:58: calcium [place] 00 gluconate 20mg/mL NaCl 0.67% 50mL WASTE: F/P - Sink; E - Municipal Trash Bin calcium No Notes: Memoria carbonate 5-12 (Same As: l 500 mg (200 16:58: Tums) Audra nn mg 00 Calcium elemental Carbonate calcium) 500 mg = oral tablet 200 mg elemental calcium Dose = mg calcium carbonate ( mg elemental calcium) morphine No 4 mg, Memoria Sulfate 5-12 Route: l 15:58: IVP, ONCE, [place] 00 kg, Priority: STAT, Start date: 10/09/21 10:58:00 CDT, Stop date: 10/09/21 10:58:00 CDT morphine 2021-0 No 4 mg, Memoria Sulfate 5-12 Route: l 15:58: IVP, ONCE, [place] 00 kg, Priority: STAT, Start date: 10/09/21 10:58:00 CDT, Stop date: 10/09/21 10:58:00 CDT morphine 2021-0 No 4 mg, Memoria Sulfate 5-12 Route: l 15:58: IVP, ONCE, [place] 00 kg, Priority: STAT, Start date: 10/09/21 10:58:00 CDT, Stop date: 10/09/21 10:58:00 CDT Reglan No Notes: Memoria 5-12 (Same as: l 15:29: Reglan) [place] Benadryl No Notes: Memoria 5-12 (Same as: l 15:29: Benadryl) [place] Reglan No Notes: Memoria 5-12 (Same as: l 15:29: Reglan) [place] Benadryl No Notes: Memoria 5-12 (Same as: l 15:29: Benadryl) [place] Reglan No Notes: Memoria 5-12 (Same as: l 15:29: Reglan) [place] Benadryl No Notes: Memoria 5-12 (Same as: l 15:29: Benadryl) [place] Phenergan No 12.5 mg, [place]in oliva 5-12 Route: l 15:28: IVPB, [place] ONCE, kg, Priority: STAT, Start date: 10/09/21 10:28:00 CDT, Stop date: 10/09/21 10:28:00 CDT Phenergan 0 No 12.5 mg, [place] oliva 5-12 Route: l 15:28: IVPB, [place] ONCE, kg, Priority: STAT, Start date: 10/09/21 10:28:00 CDT, Stop date: 10/09/21 10:28:00 CDT Phenergan 0 No 12.5 mg, [place] oliva 5-12 Route: l 15:28: IVPB, [place] ONCE, kg, Priority: STAT, Start date: 10/09/21 10:28:00 CDT, Stop date: 10/09/21 10:28:00 CDT trazodone No Notes: Memori a 50 mg oral 5-12 (Same As: l tablet 14:21: Desyrel) trazodone No Notes: Memori a 50 mg oral 5-12 (Same As: l tablet 14:21: Desyrel) trazodone No Notes: Memori a 50 mg oral 5-12 (Same As: l tablet 14:21: Desyrel) trazodone No 0 Memoria 50 mg oral 5-12 Refill(s) l tablet 14:20: FLUoxetine No 10 mg = 1 Me moria 10 mg oral 5-12 cap, PO, l capsule 14:20: Daily, # Gualberto n 00 30 cap, 0 Refill(s) naproxen No 500 mg = 1 Mem oria 500 mg oral 5-12 tab, PO, l tablet 14:20: BID, # 60 [place] 00 tab, 0 Refill(s) acetaminoph No 1 tab, PO, Memoria en-hydrocod 5-12 Q4H, PRN l one 325 14:20: Pain, # 30 Herm fabien mg-5 mg 00 tab, 0 oral tablet Refill(s) gabapentin 2021-0 No 300 mg = 1 M emoria 300 mg oral 5-12 cap, PO, l capsule 14:20: BID, # 90 Audra nn 00 cap, 1 Refill(s) trazodone 2021-0 No 0 Memoria 50 mg oral 5-12 Refill(s) l tablet 14:20: [place] 00 FLUoxetine 0 No 10 mg = 1 Me moria 10 mg oral 5-12 cap, PO, l capsule 14:20: Daily, # [place] 00 30 cap, 0 Refill(s) naproxen 2021-0 No 500 mg = 1 Mem oria 500 mg oral 5-12 tab, PO, l tablet 14:20: BID, # 60 [place] 00 tab, 0 Refill(s) acetaminoph 2021-0 No 1 tab, PO, Memoria en-hydrocod 5-12 Q4H, PRN l one 325 14:20: Pain, # 30 Herm fabien mg-5 mg 00 tab, 0 oral tablet Refill(s) gabapentin 2021-0 No 300 mg = 1 M emoria 300 mg oral 5-12 cap, PO, l capsule 14:20: BID, # 90 Audra nn 00 cap, 1 Refill(s) trazodone 2021-0 No 0 Memoria 50 mg oral 5-12 Refill(s) l tablet 14:20: FLUoxetine 2021-0 No 10 mg = 1 Me moria 10 mg oral 5-12 cap, PO, l capsule 14:20: Daily, # [place] n 00 30 cap, 0 Refill(s) naproxen 2021-0 No 500 mg = 1 Mem oria 500 mg oral 5-12 tab, PO, l tablet 14:20: BID, # 60 [place] n 00 tab, 0 Refill(s) acetaminoph 2021-0 No 1 tab, PO, Memoria en-hydrocod 5-12 Q4H, PRN l one 325 14:20: Pain, # 30 Herm fabien mg-5 mg 00 tab, 0 oral tablet Refill(s) gabapentin 2021-0 No 300 mg = 1 M emoria 300 mg oral 5-12 cap, PO, l capsule 14:20: BID, # 90 Audra nn 00 cap, 1 Refill(s) docusate No Notes: Memoria 5-12 (Same as: l 14:00: Colace) [place] 00 (Do Not Crush) senna No Notes: Memoria 5-12 (Same as: l 14:00: Senokot) [place] 00 Saline No Notes: Memoria Flush 0.9% 5-12 (Same as: l 14:00: BD [place] 00 Posiflush) docusate No Notes: Memoria 5-12 (Same as: l 14:00: Colace) [place] 00 (Do Not Crush) senna No Notes: Memoria 5-12 (Same as: l 14:00: Senokot) [place] 00 Saline No Notes: Memoria Flush 0.9% 5-12 (Same as: l 14:00: BD [place] 00 Posiflush) docusate No Notes: Memoria 5-12 (Same as: l 14:00: Colace) [place] 00 (Do Not Crush) senna No Notes: Memoria 5-12 (Same as: l 14:00: Senokot) [place] 00 Saline No Notes: Memoria Flush 0.9% 5-12 (Same as: l 14:00: BD [place] 00 Posiflush) Sodium No 1,000 mL, Memori a Chloride 5-12 Rate: 75 l 0.9% IV 13:42: ml/hr, [place] 1,000 mL 00 Infuse over: 13.3 hr, Route: IV, Total Volume: 1,000, Start date: 10/09/21 8:42:00 CDT, Duration: 30 day, Stop date: 11/08/21 8:41:00 CDT, 0 labetalol No 10 mg, 2 Chapin oliva 5-12 mL, Route: l 13:42: IVP, Drug [place] form: INJ, Q15Min, kg, PRN Hypertensi on, Start date: 10/09/21 8:42:00 CDT, Duration: 30 day, Stop date: 11/08/21 8:41:00 CDT, 0 hydrALAZINE No Notes: Chapin oliva 5-12 (Same as: l 13:42: Apresoline ) Push over 5 minutes ondansetron No Notes: Chapin oliva 5-12 (Same as: l 13:42: Zofran) MEDICATION WASTE Product Size: 4 mg Product Wasted: ___ mg Dilaudid No Notes: Memoria 5-12 Same as l 13:42: Dilaudid Benadryl No Notes: Memoria 5-12 (Same as: l 13:42: Benadryl) Chlorasepti No Notes: Chapin oliva c 1.4% 5-12 Chlorasept l spray 13:42: ic [place] (Same as: Chlorasept ic, Sore Throat [place]) WASTE: F/P - Black; E - Municipal Trash Bin bisacodyl No Notes: Memori a 5-12 (Same As: l 13:42: Dulcolax, Bisco-Lax) Robaxin No Notes: Memoria 5-12 (Same l 13:42: as:Robaxin ) melatonin 3 No Notes: Chapin oliva mg oral 5-12 (Same as: l tablet 13:42: Melatonin) Saline No Notes: Memoria Flush 0.9% 5-12 (Same as: l 13:42: BD Posiflush) Sodium No 1,000 mL, Memori a Chloride 5-12 Rate: 75 l 0.9% IV 13:42: ml/hr, [place] 1,000 mL 00 Infuse over: 13.3 hr, Route: IV, Total Volume: 1,000, Start date: 10/09/21 8:42:00 CDT, Duration: 30 day, Stop date: 11/08/21 8:41:00 CDT, 0 labetalol No 10 mg, 2 Chapin oliva 5-12 mL, Route: l 13:42: IVP, Drug form: INJ, Q15Min, kg, PRN Hypertensi on, Start date: 10/09/21 8:42:00 CDT, Duration: 30 day, Stop date: 11/08/21 8:41:00 CDT, 0 hydrALAZINE No Notes: Chapin oliva 5-12 (Same as: l 13:42: Apresoline ) Push over 5 minutes ondansetron No Notes: Chapin oliva 5-12 (Same as: l 13:42: Zofran) MEDICATION WASTE Product Size: 4 mg Product Wasted: ___ mg Dilaudid No Notes: Memoria 5-12 Same as l 13:42: Dilaudid Benadryl No Notes: Memoria 5-12 (Same as: l 13:42: Benadryl) Chlorasepti No Notes: Chapin oliva c 1.4% 5-12 Chlorasept l spray 13:42: ic [place] (Same as: Chlorasept ic, Sore Throat [place]) WASTE: F/P - Black; E - Municipal Trash Bin bisacodyl No Notes: Memori a 5-12 (Same As: l 13:42: Dulcolax, Bisco-Lax) Robaxin No Notes: Memoria 5-12 (Same l 13:42: as:Robaxin ) melatonin 3 No Notes: Chapin oliva mg oral 5-12 (Same as: l tablet 13:42: Melatonin) Audra nn Saline No Notes: Memoria Flush 0.9% 5-12 (Same as: l 13:42: BD Posiflush) Sodium No 1,000 mL, Memori a Chloride 5-12 Rate: 75 l 0.9% IV 13:42: ml/hr, [place] 1,000 mL 00 Infuse over: 13.3 hr, Route: IV, Total Volume: 1,000, Start date: 10/09/21 8:42:00 CDT, Duration: 30 day, Stop date: 11/08/21 8:41:00 CDT, 0 labetalol No 10 mg, 2 Chapin oliva 5-12 mL, Route: l 13:42: IVP, Drug form: INJ, Q15Min, kg, PRN Hypertensi on, Start date: 10/09/21 8:42:00 CDT, Duration: 30 day, Stop date: 11/08/21 8:41:00 CDT, 0 hydrALAZINE No Notes: Chapin oliva 5-12 (Same as: l 13:42: Apresoline ) Push over 5 minutes ondansetron No Notes: Chapin oliva 5-12 (Same as: l 13:42: Zofran) MEDICATION WASTE Product Size: 4 mg Product Wasted: ___ mg Dilaudid No Notes: Memoria 5-12 Same as l 13:42: Dilaudid Benadryl No Notes: Memoria 5-12 (Same as: l 13:42: Benadryl) Chlorasepti No Notes: Chapin oliva c 1.4% 5-12 Chlorasept l spray 13:42: ic [place] (Same as: Chlorasept ic, Sore Throat [place]) WASTE: F/P - Black; E - Municipal Trash Bin bisacodyl No Notes: Memori a 5-12 (Same As: l 13:42: Dulcolax, Bisco-Lax) Robaxin No Notes: Memoria 5-12 (Same l 13:42: as:Robaxin ) melatonin 3 No Notes: Chapin oliva mg oral 5-12 (Same as: l tablet 13:42: Melatonin) Audra Saline No Notes: Memoria Flush 0.9% 5-12 (Same as: l 13:42: BD Posiflush) ondansetron No Notes: Chapin oliva 5-12 (Same as: l 10:42: Zofran) MEDICATION WASTE Product Size: 4 mg Product Wasted: ___ mg morphine 2022-0 No Notes: Memoria Sulfate 5-12 (Same l 10:42: as:MORPhin [place] 00 e Sulfate) ondansetron 2021-0 No Notes: Chapin oliva 5-12 (Same as: l 10:42: Zofran) [place] 00 MEDICATION WASTE Product Size: 4 mg Product Wasted: ___ mg morphine 2021-0 No Notes: Memoria Sulfate 5-12 (Same l 10:42: as:MORPhin [place] 00 e Sulfate) ondansetron No Notes: [place] oliva 5-12 (Same as: l 10:42: Zofran) MEDICATION WASTE Product Size: 4 mg Product Wasted: ___ mg morphine 2021-0 No Notes: Memoria Sulfate 5-12 (Same l 10:42: as:MORPhin [place] 00 e Sulfate) Dose 2021-0 No Unknown 3-30 00:00: 00 Dose 2-0 No Unknown 3-30 00:00: 00 Dose 2-0 No Unknown 3-30 00:00: 00 Dose 2-0 No Unknown 3-30 00:00: 00 Dose 2-0 No Unknown 3-30 00:00: 00 Dose 2-0 No Unknown 3-30 00:00: 00 Dose 2-0 No Unknown 3-30 00:00: 00 Dose 2-0 No Unknown 3-30 00:00: 00 Dose 2-0 No Unknown 3-30 00:00: 00 Dose 2022-0 No Unknown 3-29 00:00: 00 Dose 2022-0 No Unknown 3-29 00:00: 00 Dose 2-0 No Unknown 3-29 00:00: 00 Dose 2-0 No Unknown 3-29 00:00: 00 Dose 2-0 No Unknown 3-29 00:00: 00 Dose 2-0 No Unknown 3-29 00:00: 00 Dose 2-0 No Unknown 3-29 00:00: 00 Dose 2-0 No Unknown 3-29 00:00: 00 Dose 2-0 No Unknown 3-29 00:00: 00 Prozac 10 2021-0 No 1mg mg capsule 3-28 00:00: 00 Prozac 10 2021-0 No 1mg mg capsule 3-28 00:00: 00 Dose 2-0 No Unknown 3 00:00: 00 Dose 2-0 No Unknown 3 00:00: 00 Dose 2-0 No Unknown 3 00:00: 00 Dose 2-0 No Unknown 3 00:00: 00 Dose 2-0 No Unknown 3 00:00: 00 Dose 2022-0 No Unknown 3 00:00: 00 Prozac 10 2021-0 No 1mg mg capsule 08-25 00:00: 00 Dose 2-0 No Unknown 3 00:00: 00 Dose 2-0 No Unknown 3 00:00: 00 Dose 2-0 No Unknown 3 00:00: 00 HYDROcodone 2021-0 Yes TAKE 1 UT -acetaminop 2-09 TABLET BY [facility] gretchen ([employer]) 00:00: MOUTH 5-325 MG 00 TWICE tablet DAILY FOR 7 DAYS NEEDED FOR MODERATE TO SEVERE PAIN. HYDROcodone 2021-0 Yes TAKE 1 UT -acetaminop 2-09 TABLET BY [facility] gretchen ([employer]) 00:00: MOUTH 5-325 MG 00 TWICE tablet DAILY FOR 7 DAYS NEEDED FOR MODERATE TO SEVERE PAIN. HYDROcodone 2021-0 Yes TAKE 1 UT -acetaminop 2-09 TABLET BY [facility] gretchen ([employer]) 00:00: MOUTH 5-325 MG 00 TWICE tablet DAILY FOR 7 DAYS NEEDED FOR MODERATE TO SEVERE PAIN. HYDROcodone 2021-0 Yes TAKE 1 UT -acetaminop 2-09 TABLET BY [facility] gretchen ([employer]) 00:00: MOUTH 5-325 MG 00 TWICE tablet DAILY FOR 7 DAYS NEEDED FOR MODERATE TO SEVERE PAIN. HYDROcodone 2021-0 Yes TAKE 1 UT -acetaminop 2-09 TABLET BY [facility] hen ([employer]) 00:00: MOUTH 5-325 MG 00 TWICE tablet DAILY FOR 7 DAYS NEEDED FOR MODERATE TO SEVERE PAIN. HYDROcodone 2021-0 Yes TAKE 1 UT -acetaminop 2-09 TABLET BY [facility] hen ([employer]) 00:00: MOUTH 5-325 MG 00 TWICE tablet DAILY FOR 7 DAYS NEEDED FOR MODERATE TO SEVERE PAIN. HYDROcodone 2021-0 2021- No TAKE 1 UT -acetaminop 2-09 06-24 TABLET BY [facility] ([place]) 00:00: 00:00 MOUTH 5-325 MG 00 :00 TWICE tablet DAILY FOR 7 DAYS NEEDED FOR MODERATE TO SEVERE PAIN. acetaminoph acetaminoph No acetaminop [facility] en 300 en 300 hen 300 [facility] mg-codeine mg-codeine mg-codeine ty 30 mg 30 mg 30 mg Hospita tablet TAKE tablet TAKE tablet l 1 TO 2 1 TO 2 TAKE 1 TO Clinic s TABLETS BY TABLETS BY 2 TABLETS MOUTH EVERY MOUTH EVERY BY MOUTH 4 HOURS FOR 4 HOURS FOR EVERY 4 14 DAYS 14 DAYS HOURS FOR NEEDED FOR NEEDED FOR 14 DAYS PAIN PAIN NEEDED FOR PAIN alprazolam alprazolam No alprazolam [facility] 0.25 mg 0.25 mg 0.25 mg Commun i tablet TAKE tablet TAKE tablet ty 1 TABLET BY 1 TABLET BY TAKE 1 Hospita MOUTH THREE MOUTH THREE TABLET BY l TIMES DAILY TIMES DAILY MOUTH Clinics FOR 14 DAYS FOR 14 DAYS THREE NEEDED NEEDED TIMES FOR ANXIETY FOR ANXIETY DAILY FOR 14 DAYS NEEDED FOR ANXIETY baclofen 5 baclofen 5 No baclofen 5 [facility] mg tablet mg tablet mg tablet [facility] TAKE 1/2 TAKE 1/2 TAKE 1/2 ty TABLET BY TABLET BY TABLET BY Hospita MOUTH TWICE MOUTH TWICE MOUTH l DAILY FOR 5 DAILY FOR 5 TWICE Clinics DAYS THEN DAYS THEN DAILY FOR TAKE 1 TAKE 1 5 DAYS TABLET BY TABLET BY THEN TAKE MOUTH TWICE MOUTH TWICE 1 TABLET DAILY DAILY BY MOUTH THEREAFTER THEREAFTER TWICE DAILY THEREAFTER cyclobenzap cyclobenzap No cyclobenza [facility] rine 10 mg rine 10 mg pauline 10 [facility]i tablet TAKE tablet TAKE mg tablet ty 1 TABLET BY 1 TABLET BY TAKE 1 Hospita MOUTH DAILY MOUTH DAILY TABLET BY l NEEDED NEEDED MOUTH Clin ics DAILY NEEDED cyclobenzap cyclobenzap No cyclobenza [facility] rine 5 mg rine 5 mg pauline 5 mg [facility]i tablet TAKE tablet TAKE tablet ty 1 TABLET BY 1 TABLET BY TAKE 1 Hospita MOUTH THREE MOUTH THREE TABLET BY l TIMES DAILY TIMES DAILY MOUTH Clinics NEEDED NEEDED THREE TIMES DAILY NEEDED dexamethaso dexamethaso No dexamethas [facility] ne 2 mg ne 2 mg one 2 mg [facility] ni tablet TAKE tablet TAKE tablet ty 1 TABLET BY 1 TABLET BY TAKE 1 Hospita MOUTH THREE MOUTH THREE TABLET BY l TIMES DAILY TIMES DAILY MOUTH Clinics THREE TIMES DAILY diclofenac diclofenac No diclofenac [facility] [place] sodium 75 sodium 75 sodium 75 [facility] mg mg mg ty tablet,nam tablet,nam tablet,del [facility]osp[facility] yed release yed release ayed l TAKE 1 TAKE 1 release Clinics TABLET BY TABLET BY TAKE 1 MOUTH TWICE MOUTH TWICE TABLET BY DAILY DAILY MOUTH TWICE DAILY docusate docusate No docusate Swe j[facility] sodium 100 sodium 100 sodium 100 [facility] mg capsule mg capsule mg capsule ty TAKE 1 TAKE 1 TAKE 1 Hospita CAPSULE BY CAPSULE BY CAPSULE BY l MOUTH TWICE MOUTH TWICE MOUTH Clinics DAILY DAILY TWICE NEEDED FOR NEEDED FOR DAILY CONSTIPATIO CONSTIPATIO NEEDED FOR N PEDIATRIC N PEDIATRIC CONSTIPATI DOSING DOSING ON PEDIATRIC DOSING fluoxetine fluoxetine No fluoxetine [facility] 10 mg 10 mg 10 mg [facility] capsule capsule capsule ty TAKE 1 TAKE 1 TAKE 1 Hospita CAPSULE BY CAPSULE BY CAPSULE BY l MOUTH EVERY MOUTH EVERY MOUTH Clinics DAY DAY EVERY DAY gabapentin gabapentin No gabapentin [facility] 300 mg 300 mg 300 mg [facility] capsule capsule capsule ty TAKE 1 TAKE 1 TAKE 1 [facility]ospita CAPSULE BY CAPSULE BY CAPSULE BY l MOUTH TWICE MOUTH TWICE MOUTH Clinics DAILY DAILY TWICE DAILY hydrocodone hydrocodone No hydrocodon [facility] 5 5 e 5 [facility] mg-acetamin mg-acetamin mg-acetami ty ophen 325 ophen 325 nophen 325 Hospita mg tablet mg tablet mg tablet l TAKE 1 TAKE 1 TAKE 1 Clinics TABLET BY TABLET BY TABLET BY MOUTH TWICE MOUTH TWICE MOUTH DAILY FOR 7 DAILY FOR 7 TWICE DAYS DAYS DAILY FOR NEEDED FOR NEEDED FOR 7 DAYS MODERATE TO MODERATE TO NEEDED FOR SEVERE SEVERE MODERATE PAIN. PAIN. TO SEVERE PAIN. lactulose lactulose No lactulose [facility] 10 gram/15 10 gram/15 10 gram/15 [facility] mL oral mL oral mL oral ty solution solution solution [facility] TAKE 30MLS TAKE 30MLS TAKE 30MLS l BY MOUTH BY MOUTH BY MOUTH Cli nics TWICE DAILY TWICE DAILY TWICE FOR 2 DAYS FOR 2 DAYS DAILY FOR 2 DAYS methocarbam methocarbam No methocarba [facility] [place] ol 500 mg ol 500 mg mol 500 mg [facility] tablet TAKE tablet TAKE tablet ty 2 TABLETS 2 TABLETS TAKE 2 [facility] BY MOUTH BY MOUTH TABLETS BY l THREE TIMES THREE TIMES MOUTH Clinics DAILY FOR DAILY FOR THREE 14 DAYS 14 DAYS TIMES DAILY FOR 14 DAYS methylpredn methylpredn No methylpred [facility] isolone 4 isolone 4 nisolone 4 [facility] mg tablets mg tablets mg tablets ty in a dose in a dose in a dose Hospita pack TAKE pack TAKE pack TAKE l DIRECTED DIRECTED C hussain DIRECTED metoprolol metoprolol No metoprolol [facility] tartrate 25 tartrate 25 tartrate [facility] mg tablet mg tablet 25 mg ty TAKE 1 TAKE 1 tablet Hospita TABLET BY TABLET BY TAKE 1 l MOUTH TWICE MOUTH TWICE TABLET BY Clinics DAILY. DAILY. MOUTH TWICE DAILY. naloxone 4 naloxone 4 No naloxone 4 [facility] mg/actuatio mg/actuatio mg/actuati Commun[facility] n nasal n nasal on nasal ty spray [facility] naproxen naproxen No naproxen Swe jessica 500 mg 500 mg 500 mg [facility] tablet TAKE tablet TAKE tablet ty 1 TABLET BY 1 [facility]T [facility] MOUTH TWICE TABLET BY DAILY WITH DAILY WITH MOUTH Cl inics FOOD FOOD TWICE DAILY WITH FOOD nortriptyli nortriptyli No nortriptyl [facility] ne 10 mg ne 10 mg ine 10 mg [facility] capsule capsule capsule ty TAKE 1 TAKE 1 TAKE 1 [facility]ospita CAPSULE BY CAPSULE BY CAPSULE BY l MOUTH FEET MOUTH FEET MOUTH FEET Clinics AT BEDTIME AT BEDTIME AT BEDTIME FOR NERVE FOR NERVE FOR NERVE PAIN PAIN PAIN polyethylen polyethylen No polyethyle [facility] e glycol e glycol ne glycol Co [facility] 3350 17 3350 17 3350 17 ty gram/dose gram/dose gram/dose Hosp[facility] oral powder oral powder oral l MIX 17 MIX 17 powder MIX Clini cs GRAMS WITH GRAMS WITH 17 GRAMS 8 OUNCES OF 8 OUNCES OF WITH 8 WATER AND WATER AND OUNCES OF DRINK EVERY DRINK EVERY WATER AND DAY DAY DRINK EVERY DAY pregabalin pregabalin No pregabalin [facility] 100 mg 100 mg 100 mg [facility] capsule capsule capsule ty TAKE 1 TAKE 1 TAKE 1 [facility]ospita CAPSULE BY CAPSULE BY CAPSULE BY l MOUTH THREE MOUTH THREE MOUTH Clinics TIMES TIMES THREE DAILY. DAILY. TIMES DAILY. pregabalin pregabalin No pregabalin [facility] 50 mg 50 mg 50 mg [facility] capsule capsule capsule ty [facility] pregabalin pregabalin No pregabalin [facility] 75 mg 75 mg 75 mg [facility] capsule capsule capsule ty TAKE 1 TAKE 1 TAKE 1 [facility]ospita CAPSULE BY CAPSULE BY CAPSULE BY l MOUTH EVERY MOUTH EVERY MOUTH Clinics 12 HOURS 12 HOURS EVERY 12 HOURS tizanidine tizanidine No tizanidine [facility] [place] 4 mg tablet 4 mg tablet 4 mg C [facility] TAKE 1 TAKE 1 tablet ty TABLET BY TABLET BY TAKE 1 Hos deni MOUTH TWICE MOUTH TWICE TABLET BY l DAILY FOR DAILY FOR MOUTH Clin ics 14 DAYS 14 DAYS TWICE NEEDED FOR NEEDED FOR DAILY FOR MUSCLE MUSCLE 14 DAYS SPASMS SPASMS NEEDED FOR MUSCLE SPASMS trazodone trazodone No trazodone [facility] 50 mg 50 mg 50 mg [facility] tablet TAKE tablet TAKE tablet ty 1 TABLET BY 1 TABLET BY TAKE 1 Hospita MOUTH AT MOUTH AT TABLET BY l BEDTIME BEDTIME MOUTH AT Clinics NEEDED FOR NEEDED FOR BEDTIME INSOMNIA. INSOMNIA. NEEDED FOR INSOMNIA. acetaminoph acetaminoph No acetaminop [facility] en 300 en 300 hen 300 [facility] mg-codeine mg-codeine mg-codeine ty 30 mg 30 mg 30 mg [facility] tablet TAKE tablet TAKE tablet l 1 TO 2 1 TO 2 TAKE 1 TO Clinic s TABLETS BY TABLETS BY 2 TABLETS MOUTH EVERY MOUTH EVERY BY MOUTH 4 HOURS FOR 4 HOURS FOR EVERY 4 14 DAYS 14 DAYS HOURS FOR NEEDED FOR NEEDED FOR 14 DAYS PAIN PAIN NEEDED FOR PAIN alprazolam alprazolam No alprazolam [facility] 0.25 mg 0.25 mg 0.25 mg Commun i tablet TAKE tablet TAKE tablet ty 1 TABLET BY 1 TABLET BY TAKE 1 Hospita MOUTH THREE MOUTH THREE TABLET BY l TIMES DAILY TIMES DAILY MOUTH Clinics FOR 14 DAYS FOR 14 DAYS THREE NEEDED NEEDED TIMES FOR ANXIETY FOR ANXIETY DAILY FOR 14 DAYS NEEDED FOR ANXIETY baclofen 5 baclofen 5 No baclofen 5 [facility] mg tablet mg tablet mg tablet [facility] TAKE 1/2 TAKE 1/2 TAKE 1/2 ty TABLET BY TABLET BY TABLET BY Hospita MOUTH TWICE MOUTH TWICE MOUTH l DAILY FOR 5 DAILY FOR 5 TWICE Clinics DAYS THEN DAYS THEN DAILY FOR TAKE 1 TAKE 1 5 DAYS TABLET BY TABLET BY THEN TAKE MOUTH TWICE MOUTH TWICE 1 TABLET DAILY DAILY BY MOUTH THEREAFTER THEREAFTER TWICE DAILY THEREAFTER cyclobenzap cyclobenzap No cyclobenza [facility] rine 10 mg rine 10 mg pauline 10 [facility] tablet TAKE tablet TAKE mg tablet ty 1 TABLET BY 1 TABLET BY TAKE 1 [facility]ospita MOUTH DAILY MOUTH DAILY TABLET BY l NEEDED NEEDED MOUTH Clin ics DAILY NEEDED cyclobenzap cyclobenzap No cyclobenza [facility] rine 5 mg rine 5 mg pauline 5 mg [facility] tablet TAKE tablet TAKE tablet ty 1 TABLET BY 1 TABLET BY TAKE 1 Hospita MOUTH THREE MOUTH THREE TABLET BY l TIMES DAILY TIMES DAILY MOUTH Clinics NEEDED NEEDED THREE TIMES DAILY NEEDED dexamethaso dexamethaso No dexamethas [facility] ne 2 mg ne 2 mg one 2 mg Com[facility] ni tablet TAKE tablet TAKE tablet ty 1 TABLET BY 1 TABLET BY TAKE 1 Hospita MOUTH THREE MOUTH THREE TABLET BY l TIMES DAILY TIMES DAILY MOUTH Clinics THREE TIMES DAILY diclofenac diclofenac No diclofenac [facility] [place] sodium 75 sodium 75 sodium 75 [facility] mg mg mg ty tablet,nam tablet,nam tablet,del [facility] yed release yed release ayed l TAKE 1 TAKE 1 release Clinics TABLET BY TABLET BY TAKE 1 MOUTH TWICE MOUTH TWICE TABLET BY DAILY DAILY MOUTH TWICE DAILY docusate docusate No docusate Swe jess[facility] sodium 100 sodium 100 sodium 100 [facility] mg capsule mg capsule mg capsule ty TAKE 1 TAKE 1 TAKE 1 Hospita CAPSULE BY CAPSULE BY CAPSULE BY l MOUTH TWICE MOUTH TWICE MOUTH Clinics DAILY DAILY TWICE NEEDED FOR NEEDED FOR DAILY CONSTIPATIO CONSTIPATIO NEEDED FOR N PEDIATRIC N PEDIATRIC CONSTIPATI DOSING DOSING ON PEDIATRIC DOSING fluoxetine fluoxetine No fluoxetine [facility] 10 mg 10 mg 10 mg [facility] capsule capsule capsule ty TAKE 1 TAKE 1 TAKE 1 [facility]ospita CAPSULE BY CAPSULE BY CAPSULE BY l MOUTH EVERY MOUTH EVERY MOUTH Clinics DAY DAY EVERY DAY gabapentin gabapentin No gabapentin [facility] 300 mg 300 mg 300 mg [facility] capsule capsule capsule ty TAKE 1 TAKE 1 TAKE 1 [facility]ospita CAPSULE BY CAPSULE BY CAPSULE BY l MOUTH TWICE MOUTH TWICE MOUTH Clinics DAILY DAILY TWICE DAILY hydrocodone hydrocodone No hydrocodon [facility] 5 5 e 5 Communi mg-acetamin mg-acetamin mg-acetami ty ophen 325 ophen 325 nophen 325 [facility]ospita mg tablet mg tablet mg tablet l TAKE 1 TAKE 1 TAKE 1 Clinics TABLET BY TABLET BY TABLET BY MOUTH TWICE MOUTH TWICE MOUTH DAILY FOR 7 DAILY FOR 7 TWICE DAYS DAYS DAILY FOR NEEDED FOR NEEDED FOR 7 DAYS MODERATE TO MODERATE TO NEEDED FOR SEVERE SEVERE MODERATE PAIN. PAIN. TO SEVERE PAIN. lactulose lactulose No lactulose [facility] 10 gram/15 10 gram/15 10 gram/15 [facility] mL oral mL oral mL oral ty solution solution solution [facility] TAKE 30MLS TAKE 30MLS TAKE 30MLS l BY MOUTH BY MOUTH BY MOUTH Cli nics TWICE DAILY TWICE DAILY TWICE FOR 2 DAYS FOR 2 DAYS DAILY FOR 2 DAYS methocarbam methocarbam No methocarba [facility] [place] ol 500 mg ol 500 mg mol 500 mg [facility] tablet TAKE tablet TAKE tablet ty 2 TABLETS 2 TABLETS TAKE 2 [facility] BY MOUTH BY MOUTH TABLETS BY l THREE TIMES THREE TIMES MOUTH Clinics DAILY FOR DAILY FOR THREE 14 DAYS 14 DAYS TIMES DAILY FOR 14 DAYS methylpredn methylpredn No methylpred [facility] isolone 4 isolone 4 nisolone 4 [facility] mg tablets mg tablets mg tablets ty in a dose in a dose in a dose Hospita pack TAKE pack TAKE pack TAKE l DIRECTED DIRECTED C linics DIRECTED metoprolol metoprolol No metoprolol [facility] tartrate 25 tartrate 25 tartrate [facility] mg tablet mg tablet 25 mg ty TAKE 1 TAKE 1 tablet [facility]ospita TABLET BY TABLET BY TAKE 1 l MOUTH TWICE MOUTH TWICE TABLET BY Clinics DAILY. DAILY. MOUTH TWICE DAILY. naloxone 4 naloxone 4 No naloxone 4 [facility] mg/actuatio mg/actuatio mg/actuati Commun[facility] n nasal n nasal on nasal ty spray spray spray [facility]osp[facility] Clin[facility] naproxen naproxen No naproxen Swe jess[facility] 500 mg 500 mg 500 mg [facility] tablet TAKE tablet TAKE tablet ty 1 TABLET BY 1 TABLET BY TAKE 1 Hospita MOUTH TWICE MOUTH TWICE TABLET BY l DAILY WITH DAILY WITH MOUTH Cl inics FOOD FOOD TWICE DAILY WITH FOOD nortriptyli nortriptyli No nortriptyl [facility] ne 10 mg ne 10 mg ine 10 mg [facility] capsule capsule capsule ty TAKE 1 TAKE 1 TAKE 1 [facility]ospita CAPSULE BY CAPSULE BY CAPSULE BY l MOUTH FEET MOUTH FEET MOUTH FEET Clinics AT BEDTIME AT BEDTIME AT BEDTIME FOR NERVE FOR NERVE FOR NERVE PAIN PAIN PAIN polyethylen polyethylen No polyethyle [facility] e glycol e glycol ne glycol Co [facility] 3350 17 3350 17 3350 17 ty gram/dose gram/dose gram/dose [facility] oral powder oral powder oral l MIX 17 MIX 17 powder MIX Clini cs GRAMS WITH GRAMS WITH 17 GRAMS 8 [facility] OF 8 OUNCES OF WITH 8 WATER AND WATER AND OUNCES OF DRINK EVERY DRINK EVERY WATER AND DAY DAY DRINK EVERY DAY pregabalin pregabalin No pregabalin [facility] 100 mg 100 mg 100 mg [facility] capsule capsule capsule ty TAKE 1 TAKE 1 TAKE 1 [facility] CAPSULE BY CAPSULE BY CAPSULE BY l MOUTH THREE MOUTH THREE MOUTH Clinics TIMES TIMES THREE DAILY. DAILY. TIMES DAILY. pregabalin pregabalin No pregabalin [facility] 50 mg 50 mg 50 mg [facility] capsule capsule capsule ty [facility] Clin[facility] pregabalin pregabalin No pregabalin [facility] 75 mg 75 mg 75 mg [facility] capsule capsule capsule ty TAKE 1 TAKE 1 TAKE 1 [facility] CAPSULE BY CAPSULE BY CAPSULE BY l MOUTH EVERY MOUTH EVERY MOUTH Clinics 12 HOURS 12 HOURS EVERY 12 HOURS tizanidine tizanidine No tizanidine [facility] 4 mg tablet 4 mg tablet 4 mg [facility] TAKE 1 TAKE 1 tablet ty TABLET BY TABLET BY TAKE 1 [facility] MOUTH TWICE MOUTH TWICE TABLET BY l DAILY FOR DAILY FOR MOUTH Clin ics 14 DAYS 14 DAYS TWICE NEEDED FOR NEEDED FOR DAILY FOR MUSCLE MUSCLE 14 DAYS SPASMS SPASMS NEEDED FOR MUSCLE SPASMS trazodone trazodone No trazodone [facility] 50 mg 50 mg 50 mg [facility] tablet TAKE tablet TAKE tablet ty 1 TABLET BY 1 TABLET BY TAKE 1 [facility]ita MOUTH AT MOUTH AT TABLET BY l BEDTIME BEDTIME MOUTH AT Clinics NEEDED FOR NEEDED FOR BEDTIME INSOMNIA. INSOMNIA. NEEDED FOR INSOMNIA. acetaminoph acetaminoph No acetaminop [facility] en 300 en 300 hen 300 [facility] mg-codeine mg-codeine mg-codeine ty 30 mg 30 mg 30 mg [facility] tablet TAKE tablet TAKE tablet l 1 TO 2 1 TO 2 TAKE 1 TO Clinic s TABLETS BY TABLETS BY 2 TABLETS MOUTH EVERY MOUTH EVERY BY MOUTH 4 HOURS FOR 4 HOURS FOR EVERY 4 14 DAYS 14 DAYS HOURS FOR NEEDED FOR NEEDED FOR 14 DAYS PAIN PAIN NEEDED FOR PAIN alprazolam alprazolam No alprazolam [facility] 0.25 mg 0.25 mg 0.25 mg Commun i tablet TAKE tablet TAKE tablet ty 1 TABLET BY 1 TABLET BY TAKE 1 [facility]ospita MOUTH THREE MOUTH THREE TABLET BY l TIMES DAILY TIMES DAILY MOUTH Clinics FOR 14 DAYS FOR 14 DAYS THREE NEEDED NEEDED TIMES FOR ANXIETY FOR ANXIETY DAILY FOR 14 DAYS NEEDED FOR ANXIETY baclofen 5 baclofen 5 No baclofen 5 [facility] mg tablet mg tablet mg tablet [facility] TAKE 1/2 TAKE 1/2 TAKE 1/2 ty TABLET BY TABLET BY TABLET BY Hospita MOUTH TWICE MOUTH TWICE MOUTH l DAILY FOR 5 DAILY FOR 5 TWICE Clinics DAYS THEN DAYS THEN DAILY FOR TAKE 1 TAKE 1 5 DAYS TABLET BY TABLET BY THEN TAKE MOUTH TWICE MOUTH TWICE 1 TABLET DAILY DAILY BY MOUTH THEREAFTER THEREAFTER TWICE DAILY THEREAFTER cyclobenzap cyclobenzap No cyclobenza [facility] rine 10 mg rine 10 mg pauline 10 [facility] tablet TAKE tablet TAKE mg tablet ty 1 TABLET BY 1 TABLET BY TAKE 1 [facility]ospita MOUTH DAILY MOUTH DAILY TABLET BY l NEEDED NEEDED MOUTH Clin ics DAILY NEEDED cyclobenzap cyclobenzap No cyclobenza [facility] rine 5 mg rine 5 mg pauline 5 mg [facility] tablet TAKE tablet TAKE tablet ty 1 TABLET BY 1 TABLET BY TAKE 1 [facility]ospita MOUTH THREE MOUTH THREE TABLET BY l TIMES DAILY TIMES DAILY MOUTH Clinics NEEDED NEEDED THREE TIMES DAILY NEEDED dexamethaso dexamethaso No dexamethas [facility] ne 2 mg ne 2 mg one 2 mg Com[facility] ni tablet TAKE tablet TAKE tablet ty 1 TABLET BY 1 TABLET BY TAKE 1 [facility]ospita MOUTH THREE MOUTH THREE TABLET BY l TIMES DAILY TIMES DAILY MOUTH Clinics THREE TIMES DAILY diclofenac diclofenac No diclofenac [facility] sodium 75 sodium 75 sodium 75 [facility] mg mg mg ty tablet,nam tablet,nam tablet,del [facility] yed release yed release ayed l TAKE 1 TAKE 1 release Clinics TABLET BY TABLET BY TAKE 1 MOUTH TWICE MOUTH TWICE TABLET BY DAILY DAILY MOUTH TWICE DAILY docusate docusate No docusate Swe jess[facility] sodium 100 sodium 100 sodium 100 [facility] mg capsule mg capsule mg capsule ty TAKE 1 TAKE 1 TAKE 1 [facility]ospita CAPSULE BY CAPSULE BY CAPSULE BY l MOUTH TWICE MOUTH TWICE MOUTH Clinics DAILY DAILY TWICE NEEDED FOR NEEDED FOR DAILY CONSTIPATIO CONSTIPATIO NEEDED FOR N PEDIATRIC N PEDIATRIC CONSTIPATI DOSING DOSING ON PEDIATRIC DOSING fluoxetine fluoxetine No fluoxetine [facility] 10 mg 10 mg 10 mg [facility] capsule capsule capsule ty TAKE 1 TAKE 1 TAKE 1 [facility]ospita CAPSULE BY CAPSULE BY CAPSULE BY l MOUTH EVERY MOUTH EVERY MOUTH Clinics DAY DAY EVERY DAY gabapentin gabapentin No gabapentin [facility] 300 mg 300 mg 300 mg [facility] capsule capsule capsule ty TAKE 1 TAKE 1 TAKE 1 [facility]osp[facility] CAPSULE BY CAPSULE BY CAPSULE BY l MOUTH TWICE MOUTH TWICE MOUTH Clinics DAILY DAILY TWICE DAILY hydrocodone hydrocodone No hydrocodon [facility] 5 5 e 5 [facility]i mg-acetamin mg-acetamin mg-acetami ty ophen 325 ophen 325 nophen 325 [facility]ospita mg tablet mg tablet mg tablet l TAKE 1 TAKE 1 TAKE 1 Clinics TABLET BY TABLET BY TABLET BY MOUTH EVERY MOUTH EVERY MOUTH 4 HOURS 4 HOURS EVERY 4 NEEDED FOR NEEDED FOR HOURS SEVERE PAIN SEVERE PAIN NEEDED FOR SEVERE PAIN lactulose lactulose No lactulose [facility] 10 gram/15 10 gram/15 10 gram/15 [facility] mL oral mL oral mL oral ty solution solution solution [facility] TAKE 30MLS TAKE 30MLS TAKE 30MLS l BY MOUTH BY MOUTH BY MOUTH Cli nics TWICE DAILY TWICE DAILY TWICE FOR 2 DAYS FOR 2 DAYS DAILY FOR 2 DAYS methocarbam methocarbam No methocarba [facility] ol 500 mg ol 500 mg mol 500 mg [facility] tablet TAKE tablet TAKE tablet ty 2 TABLETS 2 TABLETS TAKE 2 [facility] BY MOUTH BY MOUTH TABLETS BY l THREE TIMES THREE TIMES MOUTH Clinics DAILY FOR DAILY FOR THREE 14 DAYS 14 DAYS TIMES DAILY FOR 14 DAYS methylpredn methylpredn No methylpred [facility] isolone 4 isolone 4 nisolone 4 [facility] mg tablets mg tablets mg tablets ty in a dose in a dose in a dose [facility]osp[facility] pack TAKE pack TAKE pack TAKE l DIRECTED DIRECTED Nixon nixon DIRECTED metoprolol metoprolol No metoprolol [facility] tartrate 25 tartrate 25 tartrate [facility] mg tablet mg tablet 25 mg ty TAKE 1 TAKE 1 tablet [facility]osp[facility] TABLET BY TABLET BY TAKE 1 l MOUTH TWICE MOUTH TWICE TABLET BY Clinics DAILY. DAILY. MOUTH TWICE DAILY. naloxone 4 naloxone 4 No naloxone 4 [facility] mg/actuatio mg/actuatio mg/actuati Commun[facility] n nasal n nasal on nasal ty spray spray spray [facility]osp[facility] l Clinics naproxen naproxen No naproxen Swe jessica 500 mg 500 mg 500 mg [facility] tablet TAKE tablet TAKE tablet ty 1 TABLET BY 1 TABLET BY TAKE 1 [facility]ospita MOUTH TWICE MOUTH TWICE TABLET BY l DAILY WITH DAILY WITH MOUTH Cl inics FOOD FOOD TWICE DAILY WITH FOOD nortriptyli nortriptyli No nortriptyl [facility] ne 10 mg ne 10 mg ine 10 mg [facility] capsule capsule capsule ty TAKE 1 TAKE 1 TAKE 1 [facility]ita CAPSULE BY CAPSULE BY CAPSULE BY l MOUTH FEET MOUTH FEET MOUTH FEET Clinics AT BEDTIME AT BEDTIME AT BEDTIME FOR NERVE FOR NERVE FOR NERVE PAIN PAIN PAIN polyethylen polyethylen No polyethyle [facility] e glycol e glycol ne glycol Co [facility] 3350 17 3350 17 3350 17 ty gram/dose gram/dose gram/dose [facility] oral powder oral powder oral l MIX 17 MIX 17 powder MIX Clini cs GRAMS WITH GRAMS WITH 17 GRAMS 8 [facility] 8 OUNCES OF WITH 8 WATER AND WATER AND OUNCES OF DRINK EVERY DRINK EVERY WATER AND DAY DAY DRINK EVERY DAY pregabalin pregabalin No pregabalin [facility] 100 mg 100 mg 100 mg [facility] capsule capsule capsule ty TAKE 1 TAKE 1 TAKE 1 [facility]osp[facility] CAPSULE BY CAPSULE BY CAPSULE BY l MOUTH THREE MOUTH THREE MOUTH Clinics TIMES TIMES THREE DAILY. DAILY. TIMES DAILY. pregabalin pregabalin No pregabalin [facility] 50 mg 50 mg 50 mg [facility] capsule capsule capsule ty [facility] l Clinics pregabalin pregabalin No pregabalin [facility] 75 mg 75 mg 75 mg [facility] capsule capsule capsule ty TAKE 1 TAKE 1 TAKE 1 [facility] CAPSULE BY CAPSULE BY CAPSULE BY l MOUTH EVERY MOUTH EVERY MOUTH Clinics 12 HOURS 12 HOURS EVERY 12 HOURS tizanidine tizanidine No tizanidine [facility] 4 mg tablet 4 mg tablet 4 mg [facility] TAKE 1 TAKE 1 tablet ty TABLET BY TABLET BY TAKE 1 [facility] MOUTH TWICE MOUTH TWICE TABLET BY l DAILY FOR DAILY FOR MOUTH Clin ics 14 DAYS 14 DAYS TWICE NEEDED FOR NEEDED FOR DAILY FOR MUSCLE MUSCLE 14 DAYS SPASMS SPASMS NEEDED FOR MUSCLE SPASMS trazodone trazodone No trazodone [facility] 50 mg 50 mg 50 mg [facility] tablet TAKE tablet TAKE tablet ty 1 TABLET BY 1 TABLET BY TAKE 1 [facility] MOUTH AT MOUTH AT TABLET BY l BEDTIME BEDTIME MOUTH AT Clinics NEEDED FOR NEEDED FOR BEDTIME INSOMNIA. INSOMNIA. NEEDED FOR INSOMNIA. acetaminoph acetaminoph No acetaminop [facility] en 300 en 300 hen 300 [facility] mg-codeine mg-codeine mg-codeine ty 30 mg 30 mg 30 mg [facility] tablet TAKE tablet TAKE tablet l 1 TO 2 1 TO 2 TAKE 1 TO Clinic s TABLETS BY TABLETS BY 2 TABLETS MOUTH EVERY MOUTH EVERY BY MOUTH 4 HOURS FOR 4 HOURS FOR EVERY 4 14 DAYS 14 DAYS HOURS FOR NEEDED FOR NEEDED FOR 14 DAYS PAIN PAIN NEEDED FOR PAIN alprazolam alprazolam No alprazolam [facility] 0.25 mg 0.25 mg 0.25 mg Commun i tablet TAKE tablet TAKE tablet ty 1 TABLET BY 1 TABLET BY TAKE 1 [facility]ospita MOUTH THREE MOUTH THREE TABLET BY l TIMES DAILY TIMES DAILY MOUTH Clinics FOR 14 DAYS FOR 14 DAYS THREE NEEDED NEEDED TIMES FOR ANXIETY FOR ANXIETY DAILY FOR 14 DAYS NEEDED FOR ANXIETY baclofen 5 baclofen 5 No baclofen 5 [facility] mg tablet mg tablet mg tablet [facility] TAKE 1/2 TAKE 1/2 TAKE 1/2 ty TABLET BY TABLET BY TABLET BY Hospita MOUTH TWICE MOUTH TWICE MOUTH l DAILY FOR 5 DAILY FOR 5 TWICE Clinics DAYS THEN DAYS THEN DAILY FOR TAKE 1 TAKE 1 5 DAYS TABLET BY TABLET BY THEN TAKE MOUTH TWICE MOUTH TWICE 1 TABLET DAILY DAILY BY MOUTH THEREAFTER THEREAFTER TWICE DAILY THEREAFTER cyclobenzap cyclobenzap No cyclobenza [facility] rine 10 mg rine 10 mg pauline 10 [facility] tablet TAKE tablet TAKE mg tablet ty 1 TABLET BY 1 TABLET BY TAKE 1 [facility]ospita MOUTH DAILY MOUTH DAILY TABLET BY l NEEDED NEEDED MOUTH Clin ics DAILY NEEDED cyclobenzap cyclobenzap No cyclobenza [facility] rine 5 mg rine 5 mg pauline 5 mg Communi tablet TAKE tablet TAKE tablet ty 1 TABLET BY 1 TABLET BY TAKE 1 Hospita MOUTH EVERY MOUTH EVERY TABLET BY l NIGHT AT NIGHT AT MOUTH Clinic s BEDTIME BEDTIME EVERY NIGHT AT BEDTIME dexamethaso dexamethaso No dexamethas [facility] ne 2 mg ne 2 mg one 2 mg [facility] ni tablet TAKE tablet TAKE tablet ty 1 TABLET BY 1 TABLET BY TAKE 1 [facility]ospita MOUTH THREE MOUTH THREE TABLET BY l TIMES DAILY TIMES DAILY MOUTH Clinics THREE TIMES DAILY diclofenac diclofenac No diclofenac [facility] sodium 75 sodium 75 sodium 75 [facility]i mg mg mg ty tablet,nam tablet,nam tablet,del [facility]osp[facility] yed release yed release ayed l TAKE 1 TAKE 1 release Clinics TABLET BY TABLET BY TAKE 1 MOUTH TWICE MOUTH TWICE TABLET BY DAILY DAILY MOUTH TWICE DAILY docusate docusate No docusate Swe jessica sodium 100 sodium 100 sodium 100 [facility] mg capsule mg capsule mg capsule ty TAKE 1 TAKE 1 TAKE 1 [facility]ospita CAPSULE BY CAPSULE BY CAPSULE BY l MOUTH TWICE MOUTH TWICE MOUTH Clinics DAILY DAILY TWICE NEEDED FOR NEEDED FOR DAILY CONSTIPATIO CONSTIPATIO NEEDED FOR N PEDIATRIC N PEDIATRIC CONSTIPATI DOSING DOSING ON PEDIATRIC DOSING fluoxetine fluoxetine No fluoxetine [facility] 10 mg 10 mg 10 mg [facility] capsule capsule capsule ty TAKE 1 TAKE 1 TAKE 1 [facility] CAPSULE BY CAPSULE BY CAPSULE BY l MOUTH EVERY MOUTH EVERY MOUTH Clinics DAY DAY EVERY DAY gabapentin gabapentin No gabapentin [facility] 300 mg 300 mg 300 mg [facility] capsule capsule capsule ty TAKE 1 TAKE 1 TAKE 1 [facility] CAPSULE BY CAPSULE BY CAPSULE BY l MOUTH TWICE MOUTH TWICE MOUTH Clinics DAILY DAILY TWICE DAILY hydrocodone hydrocodone No hydrocodon [facility] 5 5 e 5 [facility] mg-acetamin mg-acetamin mg-acetami ty ophen 325 ophen 325 nophen 325 [facility]osp[facility] mg tablet mg tablet mg tablet l TAKE 1 TAKE 1 TAKE 1 Clinics TABLET BY TABLET BY TABLET BY MOUTH EVERY MOUTH EVERY MOUTH 4 HOURS 4 HOURS EVERY 4 NEEDED FOR NEEDED FOR HOURS SEVERE PAIN SEVERE PAIN NEEDED FOR SEVERE PAIN lactulose lactulose No lactulose [facility] 10 gram/15 10 gram/15 10 gram/15 [facility] mL oral mL oral mL oral ty solution solution solution [facility] TAKE DAILY TAKE DAILY TAKE DAILY l NEEDED NEEDED NEEDED Clinics FOR FOR FOR CONSTIPATIO CONSTIPATIO CONSTIPATI N. HOLD FOR N. HOLD FOR ON. HOLD LOOSE STOOL LOOSE STOOL FOR LOOSE STOOL methocarbam methocarbam No methocarba [facility] ol 500 mg ol 500 mg mol 500 mg [facility] tablet TAKE tablet TAKE tablet ty 2 TABLETS 2 TABLETS TAKE 2 [facility] BY MOUTH BY MOUTH TABLETS BY l THREE TIMES THREE TIMES MOUTH Clinics DAILY FOR DAILY FOR THREE 14 DAYS 14 DAYS TIMES DAILY FOR 14 DAYS methocarbam methocarbam No methocarba [facility] ol 750 mg ol 750 mg mol 750 mg [facility] tablet TAKE tablet TAKE tablet ty 1 TABLET BY 1 TABLET BY TAKE 1 [facility]ospita MOUTH TWICE MOUTH TWICE TABLET BY l DAILY DAILY MOUTH Clinics TWICE DAILY methylpredn methylpredn No methylpred [facility] isolone 4 isolone 4 nisolone 4 [facility] mg tablets mg tablets mg tablets ty in a dose in a dose in a dose Hospita pack TAKE pack TAKE pack TAKE l DIRECTED DIRECTED C linics DIRECTED metoprolol metoprolol No metoprolol [facility] tartrate 25 tartrate 25 tartrate [facility] mg tablet mg tablet 25 mg ty TAKE 1 TAKE 1 tablet [facility]osp[facility] TABLET BY TABLET BY TAKE 1 l MOUTH TWICE MOUTH TWICE TABLET BY Clinics DAILY. DAILY. MOUTH TWICE DAILY. naloxone 4 naloxone 4 No naloxone 4 [facility] mg/actuatio mg/actuatio mg/actuati [facility] n nasal n nasal on nasal ty [facility] naproxen naproxen No naproxen Swe [facility] 500 mg 500 mg 500 mg [facility] tablet TAKE tablet TAKE tablet ty 1 TABLET BY 1 TABLET BY TAKE 1 [facility]ospita MOUTH TWICE MOUTH TWICE TABLET BY l DAILY WITH DAILY WITH MOUTH Cl inics FOOD FOOD TWICE DAILY WITH FOOD nortriptyli nortriptyli No nortriptyl [facility] ne 10 mg ne 10 mg ine 10 mg [facility] capsule capsule capsule ty TAKE 1 TAKE 1 TAKE 1 [facility] CAPSULE BY CAPSULE BY CAPSULE BY l MOUTH FEET MOUTH FEET MOUTH FEET Clinics AT BEDTIME AT BEDTIME AT BEDTIME FOR NERVE FOR NERVE FOR NERVE PAIN PAIN PAIN polyethylen polyethylen No polyethyle [facility] e glycol e glycol ne glycol [facility] 3350 17 3350 17 3350 17 ty gram/dose gram/dose gram/dose [facility] oral powder oral powder oral l MIX 17 MIX 17 powder MIX Clini cs GRAMS WITH GRAMS WITH 17 GRAMS 8 [facility] OF 8 OUNCES OF WITH 8 WATER AND WATER AND OUNCES OF DRINK EVERY DRINK EVERY WATER AND DAY DAY DRINK EVERY DAY pregabalin pregabalin No pregabalin [facility] 100 mg 100 mg 100 mg [facility] capsule capsule capsule ty TAKE 1 TAKE 1 TAKE 1 [facility] CAPSULE BY CAPSULE BY CAPSULE BY l MOUTH THREE MOUTH THREE MOUTH Clinics TIMES TIMES THREE DAILY. DAILY. TIMES DAILY. pregabalin pregabalin No pregabalin [facility] 50 mg 50 mg 50 mg [facility] capsule capsule capsule ty [facility] pregabalin pregabalin No pregabalin [facility] 75 mg 75 mg 75 mg [facility] capsule capsule capsule ty TAKE 1 TAKE 1 TAKE 1 [facility] CAPSULE BY CAPSULE BY CAPSULE BY l MOUTH EVERY MOUTH EVERY MOUTH Clinics 12 HOURS 12 HOURS EVERY 12 HOURS tizanidine tizanidine No tizanidine [facility] 4 mg tablet 4 mg tablet 4 mg [facility] TAKE 1 TAKE 1 tablet ty TABLET BY TABLET BY TAKE 1 [facility] MOUTH TWICE MOUTH TWICE TABLET BY l DAILY FOR DAILY FOR MOUTH Clin ics 14 DAYS 14 DAYS TWICE NEEDED FOR NEEDED FOR DAILY FOR MUSCLE MUSCLE 14 DAYS SPASMS SPASMS NEEDED FOR MUSCLE SPASMS trazodone trazodone No trazodone [facility] 50 mg 50 mg 50 mg [facility] tablet TAKE tablet TAKE tablet ty 1 TABLET BY 1 TABLET BY TAKE 1 [facility] MOUTH AT MOUTH AT TABLET BY l BEDTIME BEDTIME MOUTH AT Clinics NEEDED FOR NEEDED FOR BEDTIME INSOMNIA. INSOMNIA. NEEDED FOR INSOMNIA. acetaminoph acetaminoph No acetaminop [facility] en 300 en 300 hen 300 [facility] mg-codeine mg-codeine mg-codeine ty 30 mg 30 mg 30 mg [facility] tablet TAKE tablet TAKE tablet l 1 TO 2 1 TO 2 TAKE 1 TO Clinic s TABLETS BY TABLETS BY 2 TABLETS MOUTH EVERY MOUTH EVERY BY MOUTH 4 HOURS FOR 4 HOURS FOR EVERY 4 14 DAYS 14 DAYS HOURS FOR NEEDED FOR NEEDED FOR 14 DAYS PAIN PAIN NEEDED FOR PAIN alprazolam alprazolam No alprazolam [facility] 0.25 mg 0.25 mg 0.25 mg Commun i tablet TAKE tablet TAKE tablet ty 1 TABLET BY 1 TABLET BY TAKE 1 [facility]ospita MOUTH THREE MOUTH THREE TABLET BY l TIMES DAILY TIMES DAILY MOUTH Clinics FOR 14 DAYS FOR 14 DAYS THREE NEEDED NEEDED TIMES FOR ANXIETY FOR ANXIETY DAILY FOR 14 DAYS NEEDED FOR ANXIETY baclofen 5 baclofen 5 No baclofen 5 [facility] mg tablet mg tablet mg tablet [facility] TAKE 1/2 TAKE 1/2 TAKE 1/2 ty TABLET BY TABLET BY TABLET BY Hospita MOUTH TWICE MOUTH TWICE MOUTH l DAILY FOR 5 DAILY FOR 5 TWICE Clinics THEN DAYS THEN DAILY FOR TAKE 1 TAKE 1 5 DAYS TABLET BY TABLET BY THEN TAKE MOUTH TWICE MOUTH TWICE 1 TABLET DAILY DAILY BY MOUTH THEREAFTER THEREAFTER TWICE DAILY THEREAFTER cyclobenzap cyclobenzap No cyclobenza [facility] rine 10 mg rine 10 mg pauline 10 [facility] tablet TAKE tablet TAKE mg tablet ty 1 TABLET BY 1 TABLET BY TAKE 1 [facility]ospita MOUTH DAILY MOUTH DAILY TABLET BY l NEEDED NEEDED MOUTH Clin ics DAILY NEEDED cyclobenzap cyclobenzap No cyclobenza [facility] rine 5 mg rine 5 mg pauline 5 mg [facility] tablet TAKE tablet TAKE tablet ty 1 TABLET BY 1 TABLET BY TAKE 1 [facility]ospita MOUTH EVERY MOUTH EVERY TABLET BY l NIGHT AT [facility]IGHT [facility] s BEDTIME BEDTIME EVERY NIGHT AT BEDTIME dexamethaso dexamethaso No dexamethas [facility] ne 2 mg ne 2 mg one 2 mg Com[facility] ni tablet TAKE tablet TAKE tablet ty 1 TABLET BY 1 TABLET BY TAKE 1 [facility]ospita MOUTH THREE MOUTH THREE TABLET BY l TIMES DAILY TIMES DAILY MOUTH Clinics THREE TIMES DAILY diclofenac diclofenac No diclofenac [facility] sodium 75 sodium 75 sodium 75 [facility] mg mg mg ty tablet,nam tablet,nam tablet,del [facility]osp[facility] yed release yed release ayed l TAKE 1 TAKE 1 release Clinics TABLET BY TABLET BY TAKE 1 MOUTH TWICE MOUTH TWICE TABLET BY DAILY DAILY MOUTH TWICE DAILY docusate docusate No docusate Swe [facility] sodium 100 sodium 100 sodium 100 [facility] mg capsule mg capsule mg capsule ty TAKE 1 TAKE 1 TAKE 1 [facility]ospita CAPSULE BY CAPSULE BY CAPSULE BY l MOUTH TWICE MOUTH TWICE MOUTH Clinics DAILY DAILY TWICE NEEDED FOR NEEDED FOR DAILY CONSTIPATIO CONSTIPATIO NEEDED FOR N PEDIATRIC N PEDIATRIC CONSTIPATI DOSING DOSING ON PEDIATRIC DOSING fluoxetine fluoxetine No fluoxetine [facility] 10 mg 10 mg 10 mg [facility] capsule capsule capsule ty TAKE 1 TAKE 1 TAKE 1 [facility]ita CAPSULE BY CAPSULE BY CAPSULE BY l MOUTH EVERY MOUTH EVERY MOUTH Clinics DAY DAY EVERY DAY gabapentin gabapentin No gabapentin [facility] 300 mg 300 mg 300 mg [facility] capsule capsule capsule ty TAKE 1 TAKE 1 TAKE 1 [facility] CAPSULE BY CAPSULE BY CAPSULE BY l MOUTH TWICE MOUTH TWICE MOUTH Clinics DAILY DAILY TWICE DAILY hydrocodone hydrocodone No hydrocodon [facility] 5 5 e 5 [facility]i mg-acetamin mg-acetamin mg-acetami ty ophen 325 ophen 325 nophen 325 [facility]osp[facility] mg tablet mg tablet mg tablet l TAKE 1 TAKE 1 TAKE 1 Clinics TABLET BY TABLET BY TABLET BY MOUTH EVERY MOUTH EVERY MOUTH 4 HOURS 4 HOURS EVERY 4 NEEDED FOR NEEDED FOR HOURS SEVERE PAIN SEVERE PAIN NEEDED FOR SEVERE PAIN lactulose lactulose No lactulose [facility] 10 gram/15 10 gram/15 10 gram/15 [facility] mL oral mL oral mL oral ty solution solution solution [facility] TAKE DAILY TAKE DAILY TAKE DAILY l NEEDED NEEDED NEEDED Clinics FOR FOR FOR CONSTIPATIO CONSTIPATIO CONSTIPATI N. HOLD FOR N. HOLD FOR ON. HOLD LOOSE STOOL LOOSE STOOL FOR LOOSE STOOL methocarbam methocarbam No methocarba [facility] ol 500 mg ol 500 mg mol 500 mg [facility] tablet TAKE tablet TAKE tablet ty 2 TABLETS 2 TABLETS TAKE 2 [facility] BY MOUTH BY MOUTH TABLETS BY l THREE TIMES THREE TIMES MOUTH Clinics DAILY FOR DAILY FOR THREE 14 DAYS 14 DAYS TIMES DAILY FOR 14 DAYS methocarbam methocarbam No methocarba [facility] ol 750 mg ol 750 mg mol 750 mg [facility] tablet TAKE tablet TAKE tablet ty 1 TABLET BY 1 TABLET BY TAKE 1 [facility]ospita MOUTH TWICE MOUTH TWICE TABLET BY l DAILY DAILY MOUTH Clinics TWICE DAILY methylpredn methylpredn No methylpred [facility] isolone 4 isolone 4 nisolone 4 [facility] mg tablets mg tablets mg tablets ty in a dose in a dose in a dose [facility]osp[facility] pack TAKE pack TAKE pack TAKE l DIRECTED DIRECTED C hussain DIRECTED metoprolol metoprolol No metoprolol [facility] tartrate 25 tartrate 25 tartrate [facility] mg tablet mg tablet 25 mg ty TAKE 1 TAKE 1 tablet [facility]osp[facility] TABLET BY TABLET BY TAKE 1 l MOUTH TWICE MOUTH TWICE TABLET BY Clinics DAILY. DAILY. MOUTH TWICE DAILY. naloxone 4 naloxone 4 No naloxone 4 [facility] mg/actuatio mg/actuatio mg/actuati [facility] n nasal n nasal on nasal ty spray [facility] naproxen naproxen No naproxen Swe [facility] 500 mg 500 mg 500 mg [facility] tablet TAKE tablet TAKE tablet ty 1 TABLET BY 1 TABLET BY TAKE 1 [facility]ospita MOUTH TWICE MOUTH TWICE TABLET BY DAILY WITH DAILY WITH MOUTH Cl inics FOOD FOOD TWICE DAILY WITH FOOD nortriptyli nortriptyli No nortriptyl [facility] ne 10 mg ne 10 mg ine 10 mg [facility] capsule capsule capsule ty TAKE 1 TAKE 1 TAKE 1 [facility] CAPSULE BY CAPSULE BY CAPSULE BY l MOUTH FEET MOUTH FEET MOUTH FEET Clinics AT BEDTIME AT BEDTIME AT BEDTIME FOR NERVE FOR NERVE FOR NERVE PAIN PAIN PAIN polyethylen polyethylen No polyethyle [facility] e glycol e glycol ne glycol [facility] 3350 17 3350 17 3350 17 ty gram/dose gram/dose gram/dose [facility]osp[facility] oral powder oral powder oral l MIX 17 MIX 17 powder MIX Clini cs GRAMS WITH GRAMS WITH 17 GRAMS 8 [facility] 8 OUNCES OF WITH 8 WATER AND WATER AND OUNCES OF DRINK EVERY DRINK EVERY WATER AND DAY DAY DRINK EVERY DAY pregabalin pregabalin No pregabalin [facility] 100 mg 100 mg 100 mg [facility] capsule capsule capsule ty TAKE 1 TAKE 1 TAKE 1 [facility] CAPSULE BY CAPSULE BY CAPSULE BY l MOUTH THREE MOUTH THREE MOUTH Clinics TIMES TIMES THREE DAILY. DAILY. TIMES DAILY. pregabalin pregabalin No pregabalin [facility] 50 mg 50 mg 50 mg [facility] capsule capsule capsule ty [facility] pregabalin pregabalin No pregabalin [facility] 75 mg 75 mg 75 mg [facility] capsule capsule capsule ty TAKE 1 TAKE 1 TAKE 1 [facility]ospita CAPSULE BY CAPSULE BY CAPSULE BY l MOUTH EVERY MOUTH EVERY MOUTH Clinics 12 HOURS 12 HOURS EVERY 12 HOURS tizanidine tizanidine No tizanidine [facility] 4 mg tablet 4 mg tablet 4 mg [facility] TAKE 1 TAKE 1 tablet ty TABLET BY TABLET BY TAKE 1 [facility] MOUTH TWICE MOUTH TWICE TABLET BY l DAILY FOR DAILY FOR MOUTH Clin ics 14 DAYS 14 DAYS TWICE NEEDED FOR NEEDED FOR DAILY FOR MUSCLE MUSCLE 14 DAYS SPASMS SPASMS NEEDED FOR MUSCLE SPASMS trazodone trazodone No trazodone [facility] 50 mg 50 mg 50 mg [facility] tablet TAKE tablet TAKE tablet ty 1 TABLET BY 1 TABLET BY TAKE 1 [facility] MOUTH AT MOUTH AT TABLET BY l BEDTIME BEDTIME MOUTH AT Clinics NEEDED FOR NEEDED FOR BEDTIME INSOMNIA. INSOMNIA. NEEDED FOR INSOMNIA. acetaminoph acetaminoph No acetaminop [facility] en 300 en 300 hen 300 [facility] mg-codeine mg-codeine mg-codeine ty 30 mg 30 mg 30 mg [facility]osp[facility] tablet TAKE tablet TAKE tablet l 1 TO 2 1 TO 2 TAKE 1 TO Clinic s TABLETS BY TABLETS BY 2 TABLETS MOUTH EVERY MOUTH EVERY BY MOUTH 4 HOURS FOR 4 HOURS FOR EVERY 4 14 DAYS 14 DAYS HOURS FOR NEEDED FOR NEEDED FOR 14 DAYS PAIN PAIN NEEDED FOR PAIN alprazolam alprazolam No alprazolam [facility] 0.25 mg 0.25 mg 0.25 mg Commun i tablet TAKE tablet TAKE tablet ty 1 TABLET BY 1 TABLET BY TAKE 1 [facility]ospita MOUTH THREE MOUTH THREE TABLET BY l TIMES DAILY TIMES DAILY MOUTH Clinics FOR 14 DAYS FOR 14 DAYS THREE NEEDED NEEDED TIMES FOR ANXIETY FOR ANXIETY DAILY FOR 14 DAYS NEEDED FOR ANXIETY baclofen 5 baclofen 5 No baclofen 5 [facility] mg tablet mg tablet mg tablet [facility] TAKE 1/2 TAKE 1/2 TAKE 1/2 ty TABLET BY TABLET BY TABLET BY Hospita MOUTH TWICE MOUTH TWICE MOUTH l DAILY FOR 5 DAILY FOR 5 TWICE Clinics DAYS THEN DAYS THEN DAILY FOR TAKE 1 TAKE 1 5 DAYS TABLET BY TABLET BY THEN TAKE MOUTH TWICE MOUTH TWICE 1 TABLET DAILY DAILY BY MOUTH THEREAFTER THEREAFTER TWICE DAILY THEREAFTER cyclobenzap cyclobenzap No cyclobenza [facility] rine 10 mg rine 10 mg pauline 10 [facility] tablet TAKE tablet TAKE mg tablet ty 1 TABLET BY 1 TABLET BY TAKE 1 [facility]ospita MOUTH DAILY MOUTH DAILY TABLET BY l NEEDED NEEDED MOUTH Clin ics DAILY NEEDED cyclobenzap cyclobenzap No cyclobenza [facility] rine 5 mg rine 5 mg pauline 5 mg [facility] tablet TAKE tablet TAKE tablet ty 1 TABLET BY 1 TABLET BY TAKE 1 [facility]ospita MOUTH EVERY MOUTH EVERY TABLET BY l NIGHT AT NIGHT AT MOUTH Clinic s BEDTIME BEDTIME EVERY NIGHT AT BEDTIME dexamethaso dexamethaso No dexamethas [facility] ne 2 mg ne 2 mg one 2 mg [facility] ni tablet TAKE tablet TAKE tablet ty 1 TABLET BY 1 TABLET BY TAKE 1 [facility]ospita MOUTH THREE MOUTH THREE TABLET BY l TIMES DAILY TIMES DAILY MOUTH Clinics THREE TIMES DAILY diclofenac diclofenac No diclofenac [facility] sodium 75 sodium 75 sodium 75 [facility] mg mg mg ty tablet,nam tablet,nam tablet,del [facility] yed release yed release ayed l TAKE 1 TAKE 1 release Clinics TABLET BY TABLET BY TAKE 1 MOUTH TWICE MOUTH TWICE TABLET BY DAILY DAILY MOUTH TWICE DAILY docusate docusate No docusate Swe [facility] sodium 100 sodium 100 sodium 100 [facility] mg capsule mg capsule mg capsule ty TAKE 1 TAKE 1 TAKE 1 [facility] CAPSULE BY CAPSULE BY CAPSULE BY l MOUTH TWICE MOUTH TWICE MOUTH Clinics DAILY DAILY TWICE NEEDED FOR NEEDED FOR DAILY CONSTIPATIO CONSTIPATIO NEEDED FOR N PEDIATRIC N PEDIATRIC CONSTIPATI DOSING DOSING ON PEDIATRIC DOSING fluoxetine fluoxetine No fluoxetine [facility] 10 mg 10 mg 10 mg [facility] capsule capsule capsule ty TAKE 1 TAKE 1 TAKE 1 [facility] CAPSULE BY CAPSULE BY CAPSULE BY l MOUTH EVERY MOUTH EVERY MOUTH Clinics DAY DAY EVERY DAY gabapentin gabapentin No gabapentin [facility] 300 mg 300 mg 300 mg [facility] capsule capsule capsule ty TAKE 1 TAKE 1 TAKE 1 [facility] CAPSULE BY CAPSULE BY CAPSULE BY l MOUTH TWICE MOUTH TWICE MOUTH Clinics DAILY DAILY TWICE DAILY hydrocodone hydrocodone No hydrocodon [facility] 5 5 e 5 [facility]i mg-acetamin mg-acetamin mg-acetami ty ophen 325 ophen 325 nophen 325 [facility]ospita mg tablet mg tablet mg tablet l TAKE 1 TAKE 1 TAKE 1 Clinics TABLET BY TABLET BY TABLET BY MOUTH EVERY MOUTH EVERY MOUTH 4 HOURS 4 HOURS EVERY 4 NEEDED FOR NEEDED FOR HOURS SEVERE PAIN SEVERE PAIN NEEDED FOR SEVERE PAIN lactulose lactulose No lactulose [facility] 10 gram/15 10 gram/15 10 gram/15 [facility] mL oral mL oral mL oral ty solution solution solution [facility] TAKE DAILY TAKE DAILY TAKE DAILY l NEEDED NEEDED NEEDED Clinics FOR FOR FOR CONSTIPATIO CONSTIPATIO CONSTIPATI N. HOLD FOR N. HOLD FOR ON. HOLD LOOSE STOOL LOOSE STOOL FOR LOOSE STOOL methocarbam methocarbam No methocarba [facility] ol 500 mg ol 500 mg mol 500 mg [facility] tablet TAKE tablet TAKE tablet ty 2 TABLETS 2 TABLETS TAKE 2 [facility] BY MOUTH BY MOUTH TABLETS BY l THREE TIMES THREE TIMES MOUTH Clinics DAILY FOR DAILY FOR THREE 14 DAYS 14 DAYS TIMES DAILY FOR 14 DAYS methocarbam methocarbam No methocarba [facility] ol 750 mg ol 750 mg mol 750 mg [facility] tablet TAKE tablet TAKE tablet ty 1 TABLET BY 1 TABLET BY TAKE 1 [facility] MOUTH TWICE MOUTH TWICE TABLET BY l DAILY DAILY MOUTH Clinics TWICE DAILY methylpredn methylpredn No methylpred [facility] isolone 4 isolone 4 nisolone 4 [facility] mg tablets mg tablets mg tablets ty in a dose in a dose in a dose [facility]osp[facility] pack TAKE pack TAKE pack TAKE l DIRECTED DIRECTED Nixon nixon DIRECTED metoprolol metoprolol No metoprolol [facility] tartrate 25 tartrate 25 tartrate [facility] mg tablet mg tablet 25 mg ty TAKE 1 TAKE 1 tablet [facility]osp[facility] TABLET BY TABLET BY TAKE 1 l MOUTH TWICE MOUTH TWICE TABLET BY Clinics DAILY. DAILY. MOUTH TWICE DAILY. naloxone 4 naloxone 4 No naloxone 4 [facility] mg/actuatio mg/actuatio mg/actuati Commun[facility] n nasal n nasal on nasal ty spray spray spray [facility]osp[facility] l Clinics naproxen naproxen No naproxen Swe [facility] 500 mg 500 mg 500 mg [facility] tablet TAKE tablet TAKE tablet ty 1 TABLET BY 1 TABLET BY TAKE 1 [facility]ita MOUTH TWICE MOUTH TWICE TABLET BY l DAILY WITH DAILY WITH MOUTH Cl inics FOOD FOOD TWICE DAILY WITH FOOD nortriptyli nortriptyli No nortriptyl [facility] ne 10 mg ne 10 mg ine 10 mg [facility] capsule capsule capsule ty TAKE 1 TAKE 1 TAKE 1 [facility] CAPSULE BY CAPSULE BY CAPSULE BY l MOUTH FEET MOUTH FEET MOUTH FEET Clinics AT BEDTIME AT BEDTIME AT BEDTIME FOR NERVE FOR NERVE FOR NERVE PAIN PAIN PAIN polyethylen polyethylen No polyethyle [facility] e glycol e glycol ne glycol Co [facility] 3350 17 3350 17 3350 17 ty gram/dose gram/dose gram/dose [facility] oral powder oral powder oral l MIX 17 MIX 17 powder MIX Clini cs GRAMS WITH GRAMS WITH 17 GRAMS 8 [facility] 8 [facility]UNCES OF WITH 8 WATER AND WATER AND OUNCES OF DRINK EVERY DRINK EVERY WATER AND DAY DAY DRINK EVERY DAY pregabalin pregabalin No pregabalin [facility] 100 mg 100 mg 100 mg [facility] capsule capsule capsule ty TAKE 1 TAKE 1 TAKE 1 [facility] CAPSULE BY CAPSULE BY CAPSULE BY l MOUTH THREE MOUTH THREE MOUTH Clinics TIMES TIMES THREE DAILY. DAILY. TIMES DAILY. pregabalin pregabalin No pregabalin [facility] 50 mg 50 mg 50 mg [facility] capsule capsule capsule ty [facility] Clin[facility] pregabalin pregabalin No pregabalin [facility] 75 mg 75 mg 75 mg [facility] capsule capsule capsule ty TAKE 1 TAKE 1 TAKE 1 [facility] CAPSULE BY CAPSULE BY CAPSULE BY l MOUTH EVERY MOUTH EVERY MOUTH Clinics 12 HOURS 12 HOURS EVERY 12 HOURS tizanidine tizanidine No tizanidine [facility] 4 mg tablet 4 mg tablet 4 mg [facility] TAKE 1 TAKE 1 tablet ty TABLET BY TABLET BY TAKE 1 [facility] MOUTH TWICE MOUTH TWICE TABLET BY l DAILY FOR DAILY FOR MOUTH Clin ics 14 DAYS 14 DAYS TWICE NEEDED FOR NEEDED FOR DAILY FOR MUSCLE MUSCLE 14 DAYS SPASMS SPASMS NEEDED FOR MUSCLE SPASMS trazodone trazodone No trazodone [facility] 50 mg 50 mg 50 mg [facility] tablet TAKE tablet TAKE tablet ty 1 TABLET BY 1 TABLET BY TAKE 1 [facility] MOUTH AT MOUTH AT TABLET BY l BEDTIME BEDTIME MOUTH AT Clinics NEEDED FOR NEEDED FOR BEDTIME INSOMNIA. INSOMNIA. NEEDED FOR INSOMNIA. acetaminoph acetaminoph No acetaminop [facility] en 300 en 300 hen 300 [facility]i mg-codeine mg-codeine mg-codeine ty 30 mg 30 mg 30 mg [facility]osp[facility] tablet TAKE tablet TAKE tablet l 1 TABLET BY 1 TABLET BY TAKE 1 Clinics MOUTH TWICE MOUTH TWICE TABLET BY DAILY DAILY MOUTH TWICE DAILY alprazolam alprazolam No alprazolam [facility] 0.25 mg 0.25 mg 0.25 mg Commun i tablet TAKE tablet TAKE tablet ty 1 TABLET BY 1 TABLET BY TAKE 1 [facility]ita MOUTH ONCE MOUTH ONCE TABLET BY l DAILY DAILY MOUTH ONCE C linics NEEDED NEEDED DAILY NEEDED baclofen 5 baclofen 5 No baclofen 5 [facility] mg tablet mg tablet mg tablet Communi TAKE 1/2 TAKE 1/2 TAKE 1/2 ty TABLET BY TABLET BY TABLET BY [facility]ospita MOUTH TWICE MOUTH TWICE MOUTH l DAILY FOR 5 DAILY FOR 5 TWICE Clinics DAYS THEN DAYS THEN DAILY FOR TAKE 1 TAKE 1 5 DAYS TABLET BY TABLET BY THEN TAKE MOUTH TWICE MOUTH TWICE 1 TABLET DAILY DAILY BY MOUTH THEREAFTER THEREAFTER TWICE DAILY THEREAFTER cyclobenzap cyclobenzap No cyclobenza [facility] rine 10 mg rine 10 mg pauline 10 [facility] tablet TAKE tablet TAKE mg tablet ty 1 TABLET BY 1 TABLET BY TAKE 1 [facility]ospita MOUTH DAILY MOUTH DAILY TABLET BY l NEEDED NEEDED MOUTH Clin ics DAILY NEEDED cyclobenzap cyclobenzap No cyclobenza [facility] rine 5 mg rine 5 mg pauline 5 mg Communi tablet TAKE tablet TAKE tablet ty 1 TABLET BY 1 TABLET BY TAKE 1 [facility]ospita MOUTH EVERY MOUTH EVERY TABLET BY l NIGHT AT NIGHT AT MOUTH Clinic s BEDTIME BEDTIME EVERY NIGHT AT BEDTIME dexamethaso dexamethaso No dexamethas [facility] ne 2 mg ne 2 mg one 2 mg [facility] ni tablet TAKE tablet TAKE tablet ty 1 TABLET BY 1 TABLET BY TAKE 1 [facility]ospita MOUTH THREE MOUTH THREE TABLET BY l TIMES DAILY TIMES DAILY MOUTH Clinics THREE TIMES DAILY diclofenac diclofenac No diclofenac [facility] sodium 75 sodium 75 sodium 75 Communi mg mg mg ty tablet,nam tablet,nam tablet,del [facility]osp[facility] yed release yed release ayed l TAKE 1 TAKE 1 release Clinics TABLET BY TABLET BY TAKE 1 MOUTH TWICE MOUTH TWICE TABLET BY DAILY DAILY MOUTH TWICE DAILY docusate docusate No docusate Swe j[facility] sodium 100 sodium 100 sodium 100 [facility]i mg capsule mg capsule mg capsule ty TAKE 1 TAKE 1 TAKE 1 [facility]ospita CAPSULE BY CAPSULE BY CAPSULE BY l MOUTH TWICE MOUTH TWICE MOUTH Clinics DAILY DAILY TWICE NEEDED FOR NEEDED FOR DAILY CONSTIPATIO CONSTIPATIO NEEDED FOR N PEDIATRIC N PEDIATRIC CONSTIPATI DOSING DOSING ON PEDIATRIC DOSING fluoxetine fluoxetine No fluoxetine [facility] 10 mg 10 mg 10 mg Communi capsule capsule capsule ty TAKE 1 TAKE 1 TAKE 1 [facility] CAPSULE BY CAPSULE BY CAPSULE BY l MOUTH EVERY MOUTH EVERY MOUTH Clinics DAY DAY EVERY DAY gabapentin gabapentin No gabapentin [facility] 300 mg 300 mg 300 mg Communi capsule capsule capsule ty TAKE 1 TAKE 1 TAKE 1 [facility] CAPSULE BY CAPSULE BY CAPSULE BY l MOUTH TWICE MOUTH TWICE MOUTH Clinics DAILY DAILY TWICE DAILY hydrocodone hydrocodone No hydrocodon [facility] 5 5 e 5 Communi mg-acetamin mg-acetamin mg-acetami ty ophen 325 ophen 325 nophen 325 [facility]ospita mg tablet mg tablet mg tablet l TAKE 1 TAKE 1 TAKE 1 Clinics TABLET BY TABLET BY TABLET BY MOUTH EVERY MOUTH EVERY MOUTH 4 HOURS 4 HOURS EVERY 4 NEEDED FOR NEEDED FOR HOURS SEVERE PAIN SEVERE PAIN NEEDED FOR SEVERE PAIN lactulose lactulose No lactulose [facility] 10 gram/15 10 gram/15 10 gram/15 Communi mL oral mL oral mL oral ty solution solution solution [facility] TAKE DAILY TAKE DAILY TAKE DAILY l NEEDED NEEDED NEEDED Clinics FOR FOR FOR CONSTIPATIO CONSTIPATIO CONSTIPATI N. HOLD FOR N. HOLD FOR ON. HOLD LOOSE STOOL LOOSE STOOL FOR LOOSE STOOL lisinopril lisinopril No lisinopril [facility] 10 mg 10 mg 10 mg [facility] tablet TAKE tablet TAKE tablet ty 1 TABLET BY 1 TABLET BY TAKE 1 [facility]ospita MOUTH DAILY MOUTH DAILY TABLET BY l MOUTH Clinics DAILY methocarbam methocarbam No methocarba [facility] ol 500 mg ol 500 mg mol 500 mg [facility] tablet TAKE tablet TAKE tablet ty 2 TABLETS 2 TABLETS TAKE 2 [facility] BY MOUTH BY MOUTH TABLETS BY l THREE TIMES THREE TIMES MOUTH Clinics DAILY FOR DAILY FOR THREE 14 DAYS 14 DAYS TIMES DAILY FOR 14 DAYS methocarbam methocarbam No methocarba [facility] ol 750 mg ol 750 mg mol 750 mg [facility] tablet TAKE tablet TAKE tablet ty 1 TABLET BY 1 TABLET BY TAKE 1 [facility] MOUTH TWICE MOUTH TWICE TABLET BY l DAILY WITH DAILY WITH MOUTH Cl inics MEALS MEALS TWICE DAILY WITH MEALS methylpredn methylpredn No methylpred [facility] isolone 4 isolone 4 nisolone 4 Communi mg tablets mg tablets mg tablets ty in a dose in a dose in a dose [facility]osp[facility] pack TAKE pack TAKE pack TAKE l DIRECTED DIRECTED C linics DIRECTED metoprolol metoprolol No metoprolol [facility] tartrate 25 tartrate 25 tartrate [facility] mg tablet mg tablet 25 mg ty TAKE 1 TAKE 1 tablet [facility] TABLET BY TABLET BY TAKE 1 l MOUTH TWICE MOUTH TWICE TABLET BY Clinics DAILY. DAILY. MOUTH TWICE DAILY. naloxone 4 naloxone 4 No naloxone 4 [facility] mg/actuatio mg/actuatio mg/actuati Communi n nasal n nasal on nasal ty [facility] naproxen naproxen No naproxen Swe jessica 500 mg 500 mg 500 mg [facility] tablet TAKE tablet TAKE tablet ty 1 TABLET BY 1 TABLET BY TAKE 1 [facility]ospita MOUTH TWICE MOUTH TWICE TABLET BY l DAILY WITH DAILY WITH MOUTH Cl inics FOOD FOOD TWICE DAILY WITH FOOD nortriptyli nortriptyli No nortriptyl [facility] ne 10 mg ne 10 mg ine 10 mg [facility] capsule capsule capsule ty TAKE 1 TAKE 1 TAKE 1 [facility]osp[facility] CAPSULE BY CAPSULE BY CAPSULE BY l MOUTH FEET MOUTH FEET MOUTH FEET Clinics AT BEDTIME AT BEDTIME AT BEDTIME FOR NERVE FOR NERVE FOR NERVE PAIN PAIN PAIN polyethylen polyethylen No polyethyle [facility] e glycol e glycol ne glycol Co [facility] [id number] 17 [id number] 17 3350 17 ty gram/dose gram/dose gram/dose [facility] oral powder oral powder oral l MIX 17 MIX 17 powder MIX Clini cs GRAMS WITH GRAMS WITH 17 GRAMS 8 OUNCES OF 8 OUNCES OF WITH 8 WATER AND WATER AND OUNCES OF DRINK EVERY DRINK EVERY WATER AND DAY DAY DRINK EVERY DAY pregabalin pregabalin No pregabalin [facility] 100 mg 100 mg 100 mg [facility] capsule capsule capsule ty TAKE 1 TAKE 1 TAKE 1 [facility]ospita CAPSULE BY CAPSULE BY CAPSULE BY l MOUTH THREE MOUTH THREE MOUTH Clinics TIMES TIMES THREE DAILY. DAILY. TIMES DAILY. pregabalin pregabalin No pregabalin [facility] 50 mg 50 mg 50 mg Communi capsule capsule capsule ty Hospita l Clinics pregabalin pregabalin No pregabalin [facility] 75 mg 75 mg 75 mg [facility] capsule capsule capsule ty TAKE 1 TAKE 1 TAKE 1 [facility]ospita CAPSULE BY CAPSULE BY CAPSULE BY l MOUTH TWICE MOUTH TWICE MOUTH Clinics DAILY WITH DAILY WITH TWICE MEALS MEALS DAILY WITH MEALS Symproic Symproic No Symproic Swe jessica 0.2 mg 0.2 mg 0.2 mg [facility]i tablet TAKE tablet TAKE tablet ty 1 TABLET BY 1 TABLET BY TAKE 1 Hospita MOUTH DAILY MOUTH DAILY TABLET BY l MOUTH Clinics DAILY tizanidine tizanidine No tizanidine [facility] 4 mg tablet 4 mg tablet 4 mg C [facility] TAKE 2 TAKE 2 tablet ty TABLETS BY TABLETS BY TAKE 2 H ospita MOUTH EVERY MOUTH EVERY TABLETS BY l NIGHT AT NIGHT AT MOUTH Clinic s BEDTIME BEDTIME EVERY WITH MEALS WITH MEALS NIGHT AT BEDTIME WITH MEALS trazodone trazodone No trazodone [facility] 50 mg 50 mg 50 mg [facility] tablet TAKE tablet TAKE tablet ty 1 TABLET BY 1 TABLET BY TAKE 1 [facility]ospita MOUTH AT MOUTH AT TABLET BY l BEDTIME BEDTIME MOUTH AT Clinics NEEDED FOR NEEDED FOR BEDTIME INSOMNIA. INSOMNIA. NEEDED FOR INSOMNIA. acetaminoph acetaminoph No acetaminop [facility] en 300 en 300 hen 300 Communi mg-codeine mg-codeine mg-codeine ty 30 mg 30 mg 30 mg [facility]ospita tablet TAKE tablet TAKE tablet l 1 TO 2 1 TO 2 TAKE 1 TO Clinic s TABLETS BY TABLETS BY 2 TABLETS MOUTH EVERY MOUTH EVERY BY MOUTH 4 HOURS FOR 4 HOURS FOR EVERY 4 14 DAYS 14 DAYS HOURS FOR NEEDED FOR NEEDED FOR 14 DAYS PAIN PAIN NEEDED FOR PAIN alprazolam alprazolam No alprazolam [facility] 0.25 mg 0.25 mg 0.25 mg Commun i tablet TAKE tablet TAKE tablet ty 1 TABLET BY 1 TABLET BY TAKE 1 [facility]ospita MOUTH THREE MOUTH THREE TABLET BY l TIMES DAILY TIMES DAILY MOUTH Clinics FOR 14 DAYS FOR 14 DAYS THREE NEEDED NEEDED TIMES FOR ANXIETY FOR ANXIETY DAILY FOR 14 DAYS NEEDED FOR ANXIETY baclofen 5 baclofen 5 No baclofen 5 [facility] mg tablet mg tablet mg tablet Communi TAKE 1/2 TAKE 1/2 TAKE 1/2 ty TABLET BY TABLET BY TABLET BY Hospita MOUTH TWICE MOUTH TWICE MOUTH l DAILY FOR 5 DAILY FOR 5 TWICE Clinics DAYS THEN DAYS THEN DAILY FOR TAKE 1 TAKE 1 5 DAYS TABLET BY TABLET BY THEN TAKE MOUTH TWICE MOUTH TWICE 1 TABLET DAILY DAILY BY MOUTH THEREAFTER THEREAFTER TWICE DAILY THEREAFTER cyclobenzap cyclobenzap No cyclobenza [facility] rine 10 mg rine 10 mg pauline 10 Communi tablet TAKE tablet TAKE mg tablet ty 1 TABLET BY 1 TABLET BY TAKE 1 [facility]ospita MOUTH DAILY MOUTH DAILY TABLET BY l NEEDED NEEDED MOUTH Clin ics DAILY NEEDED cyclobenzap cyclobenzap No cyclobenza [facility] rine 5 mg rine 5 mg pauline 5 mg Communi tablet TAKE tablet TAKE tablet ty 1 TABLET BY 1 TABLET BY TAKE 1 [facility]ospita MOUTH THREE MOUTH THREE TABLET BY l TIMES DAILY TIMES DAILY MOUTH Clinics NEEDED NEEDED THREE TIMES DAILY NEEDED dexamethaso dexamethaso No dexamethas [facility] ne 2 mg ne 2 mg one 2 mg Commu ni tablet TAKE tablet TAKE tablet ty 1 TABLET BY 1 TABLET BY TAKE 1 [facility]ospita MOUTH THREE MOUTH THREE TABLET BY l TIMES DAILY TIMES DAILY MOUTH Clinics THREE TIMES DAILY diclofenac diclofenac No diclofenac [facility] sodium 75 sodium 75 sodium 75 Communi mg mg mg ty tablet,nam tablet,nam tablet,del Hospita yed release yed release ayed l TAKE 1 TAKE 1 release Clinics TABLET BY TABLET BY TAKE 1 MOUTH TWICE MOUTH TWICE TABLET BY DAILY DAILY MOUTH TWICE DAILY docusate docusate No docusate Swe jessica sodium 100 sodium 100 sodium 100 [facility] mg capsule mg capsule mg capsule ty TAKE 1 TAKE 1 TAKE 1 [facility]ospita CAPSULE BY CAPSULE BY CAPSULE BY l MOUTH TWICE MOUTH TWICE MOUTH Clinics DAILY DAILY TWICE NEEDED FOR NEEDED FOR DAILY CONSTIPATIO CONSTIPATIO NEEDED FOR N PEDIATRIC N PEDIATRIC CONSTIPATI DOSING DOSING ON PEDIATRIC DOSING fluoxetine fluoxetine No fluoxetine [facility] 10 mg 10 mg 10 mg [facility] capsule capsule capsule ty TAKE 1 TAKE 1 TAKE 1 [facility] CAPSULE BY CAPSULE BY CAPSULE BY l MOUTH EVERY MOUTH EVERY MOUTH Clinics DAY DAY EVERY DAY gabapentin gabapentin No gabapentin [facility] 300 mg 300 mg 300 mg Communi capsule capsule capsule ty TAKE 1 TAKE 1 TAKE 1 [facility] CAPSULE BY CAPSULE BY CAPSULE BY l MOUTH TWICE MOUTH TWICE MOUTH Clinics DAILY DAILY TWICE DAILY hydrocodone hydrocodone No hydrocodon [facility] 5 5 e 5 Communi mg-acetamin mg-acetamin mg-acetami ty ophen 325 ophen 325 nophen 325 [facility]ospita mg tablet mg tablet mg tablet l TAKE 1 TAKE 1 TAKE 1 Clinics TABLET BY TABLET BY TABLET BY MOUTH TWICE MOUTH TWICE MOUTH DAILY FOR 7 DAILY FOR 7 TWICE DAYS DAYS DAILY FOR NEEDED FOR NEEDED FOR 7 DAYS MODERATE TO MODERATE TO NEEDED FOR SEVERE SEVERE MODERATE PAIN. PAIN. TO SEVERE PAIN. lactulose lactulose No lactulose [facility] 10 gram/15 10 gram/15 10 gram/15 Commun[facility] mL oral mL oral mL oral ty solution solution solution [facility] deni TAKE 30MLS TAKE 30MLS TAKE 30MLS l BY MOUTH BY MOUTH BY MOUTH Cli nics TWICE DAILY TWICE DAILY TWICE FOR 2 DAYS FOR 2 DAYS DAILY FOR 2 DAYS methocarbam methocarbam No methocarba [facility] ol 500 mg ol 500 mg mol 500 mg Communi tablet TAKE tablet TAKE tablet ty 2 TABLETS 2 TABLETS TAKE 2 Hos deni BY MOUTH BY MOUTH TABLETS BY l THREE TIMES THREE TIMES MOUTH Clinics DAILY FOR DAILY FOR THREE 14 DAYS 14 DAYS TIMES DAILY FOR 14 DAYS methylpredn methylpredn No methylpred [facility] isolone 4 isolone 4 nisolone 4 Communi mg tablets mg tablets mg tablets ty in a dose in a dose in a dose [facility]ospita pack TAKE pack TAKE pack TAKE l DIRECTED DIRECTED Nixon nixon DIRECTED metoprolol metoprolol No metoprolol [facility] tartrate 25 tartrate 25 tartrate Communi mg tablet mg tablet 25 mg ty TAKE 1 TAKE 1 tablet Hospita TABLET BY TABLET BY TAKE 1 l MOUTH TWICE MOUTH TWICE TABLET BY Clinics DAILY. DAILY. MOUTH TWICE DAILY. naloxone 4 naloxone 4 No naloxone 4 [facility] mg/actuatio mg/actuatio mg/actuati Commun[facility] n nasal n nasal on nasal ty [facility] naproxen naproxen No naproxen Swe jessica 500 mg 500 mg 500 mg [facility] tablet TAKE tablet TAKE tablet ty 1 TABLET BY 1 TABLET BY TAKE 1 [facility]ospita MOUTH TWICE MOUTH TWICE TABLET BY l DAILY WITH DAILY WITH MOUTH Cl inics FOOD FOOD TWICE DAILY WITH FOOD nortriptyli nortriptyli No nortriptyl [facility] ne 10 mg ne 10 mg ine 10 mg [facility] capsule capsule capsule ty TAKE 1 TAKE 1 TAKE 1 [facility]ospita CAPSULE BY CAPSULE BY CAPSULE BY l MOUTH FEET MOUTH FEET MOUTH FEET Clinics AT BEDTIME AT BEDTIME AT BEDTIME FOR NERVE FOR NERVE FOR NERVE PAIN PAIN PAIN polyethylen polyethylen No polyethyle [facility] e glycol e glycol ne glycol Co m[facility]i 3350 17 3350 17 3350 17 ty gram/dose gram/dose gram/dose [facility]osp[facility] oral powder oral powder oral l MIX 17 MIX 17 powder MIX Clini cs GRAMS WITH GRAMS WITH 17 GRAMS 8 OUNCES OF 8 OUNCES OF WITH 8 WATER AND WATER AND OUNCES OF DRINK EVERY DRINK EVERY WATER AND DAY DAY DRINK EVERY DAY pregabalin pregabalin No pregabalin [facility] 100 mg 100 mg 100 mg [facility] capsule capsule capsule ty TAKE 1 TAKE 1 TAKE 1 [facility]ita CAPSULE BY CAPSULE BY CAPSULE BY l MOUTH THREE MOUTH THREE MOUTH Clinics TIMES TIMES THREE DAILY. DAILY. TIMES DAILY. pregabalin pregabalin No pregabalin [facility] 50 mg 50 mg 50 mg [facility] capsule capsule capsule ty [facility]osp[facility] Clinics pregabalin pregabalin No pregabalin [facility] 75 mg 75 mg 75 mg Communi capsule capsule capsule ty TAKE 1 TAKE 1 TAKE 1 [facility]ospita CAPSULE BY CAPSULE BY CAPSULE BY l MOUTH EVERY MOUTH EVERY MOUTH Clinics 12 HOURS 12 HOURS EVERY 12 HOURS tizanidine tizanidine No tizanidine [facility] 4 mg tablet 4 mg tablet 4 mg C [facility] TAKE 1 TAKE 1 tablet ty TABLET BY TABLET BY TAKE 1 Hos deni MOUTH TWICE MOUTH TWICE TABLET BY l DAILY FOR DAILY FOR MOUTH Clin ics 14 DAYS 14 DAYS TWICE NEEDED FOR NEEDED FOR DAILY FOR MUSCLE MUSCLE 14 DAYS SPASMS SPASMS NEEDED FOR MUSCLE SPASMS trazodone trazodone No trazodone [facility] 50 mg 50 mg 50 mg Communi tablet TAKE tablet TAKE tablet ty 1 TABLET BY 1 TABLET BY TAKE 1 Hospita MOUTH AT MOUTH AT TABLET BY l BEDTIME BEDTIME MOUTH AT Clinics NEEDED FOR NEEDED FOR BEDTIME INSOMNIA. INSOMNIA. NEEDED FOR INSOMNIA. Vital Signs Vital Name Observation Time Observation Value Comments Source Body height 2022-07-08 19:18:43 [facility]3 [facility]22-07-08 19:18:[facility] 2022-07-08 19:18:43 25.16 [facility] Syst[facility] blood 2021-11-25 16:52:00 129 mm[Hg] [facility] Diastolic blood 2021-11-25 16:52:00 73 mm[Hg] [facility] Heart rate 2021-11-25 16:52:00 80 /[facility] Body temperature 2021-11-25 16:52:00 36.39 [facility] height 2021-11-25 16:52:00 [facility] 2021-11-25 16:52:00 72.576 [facility] BMI 2021-11-25 16:52:00 23.63 kg/m2 [facility] BP Diastolic 2021-11-19 00:00:00 73 mm[Hg] On license of [facility] s BP Systolic 2021-11-19 00:00:00 134 mm[Hg] [facility] s Systolic blood 2021-10-30 14:52:00 120 mm[Hg] [facility] Diastolic blood 2021-10-30 14:52:00 75 mm[Hg] [facility] Heart rate 2021-10-30 14:52:00 90 /[facility] Body temperature 2021-10-30 14:52:00 36.72 [facility] Body height 2021-10-30 14:52:00 [facility].3 [facility] Body weight 2021-10-30 14:52:00 72.576 kg [facility] BMI 2021-10-30 14:52:00 23.63 kg/m2 [facility] Height 2022-11-12 21:07:00 5 [ft_i] [facility] Weight 2022-11-12 21:07:00 [facility] BMI Calculated 2022-11-12 21:07:00 [facility] Heart Rate 2022-11-12 20:32:10 [facility] Systolic (mm Hg) 2022-11-12 20:31:55 [facility] Diastolic (mm Hg) 2022-11-12 20:31:55 [facility] Systolic blood 2022-11-05 05:28:00 135 mm[Hg] [facility] pressure Diastolic blood 2022-11-05 05:28:00 80 mm[Hg] [facility] pressure Heart rate 2022-11-05 05:28:00 85 /min [facility] Respiratory rate 2022-11-05 05:28:00 18 /min [facility] Oxygen saturation in 2022-11-05 05:28:00 98 /min [facility] Arterial blood by Pulse oximetry Body temperature 2022-11-04 22:14:39 36.78 Britni [facility] Body height 2022-11-04 22:12:00 175.3 cm [facility] Body weight 2022-11-04 22:12:00 77.111 kg [facility] BMI 2022-11-04 22:12:00 25.10 kg/m2 [facility] Heart Rate 2022-11-02 18:08:09 [facility] Height 2022-11-02 18:08:00 5 [ft_i] [facility] 2022-11-02 18:08:00 [facility] BMI Calculated 2022-11-02 18:08:00 [facility] Systolic (mm Hg) 2022-11-02 18:07:53 [facility] Diastolic (mm Hg) 2022-11-02 18:07:53 [facility] Heart Rate 2022-10-14 20:22:00 [facility] Systolic (mm Hg) 2022-10-14 20:22:00 [facility] Diastolic (mm Hg) 2022-10-14 20:22:00 [facility] Height 2022-10-14 20:22:00 5 [ft_i] [facility] Weight 2022-10-14 20:22:00 [facility] BMI Calculated 2022-10-14 20:22:00 [facility] Heart Rate 2022-10-06 16:00:00 [facility] Systolic (mm Hg) 2022-10-06 16:00:00 [facility] Diastolic (mm Hg) 2022-10-06 16:00:00 [facility] Heart Rate 2022-09-29 16:41:00 [facility] Systolic (mm Hg) 2022-09-29 16:41:00 [facility] Diastolic (mm Hg) 2022-09-29 16:41:00 [facility] Height 2022-09-29 16:41:00 5 [ft_i] [facility] Weight 2022-09-29 16:41:00 [facility] BMI Calculated 2022-09-29 16:41:00 [facility] Heart Rate 2022-09-29 15:34:00 [facility] Systolic (mm Hg) 2022-09-29 15:34:00 [facility] Diastolic (mm Hg) 2022-09-29 15:34:00 [facility] Height 2022-09-29 15:34:00 5 [ft_i] [facility] Weight 2022-09-29 15:34:00 [facility] BMI Calculated 2022-09-29 15:34:00 [facility] Heart Rate 2022-08-24 13:53:00 [facility] Systolic (mm Hg) 2022-08-24 13:53:00 [facility] Diastolic (mm Hg) 2022-08-24 13:53:00 [facility] Height 2022-08-24 13:53:00 5 [ft_i] [facility] Weight 2022-08-24 13:53:00 [facility] BMI Calculated 2022-08-24 13:53:00 [facility] Systolic (mm Hg) 2022-08-11 16:01:00 [facility] Diastolic (mm Hg) 2022-08-11 16:01:00 [facility] Heart Rate 2022-08-10 15:00:00 [facility] Heart Rate 2022-07-08 19:18:00 [facility] Systolic (mm Hg) 2022-07-08 19:18:00 [facility] Diastolic (mm Hg) 2022-07-08 19:18:00 [facility] Height 2022-07-08 19:18:00 5 [ft_i] [facility] Weight 2022-07-08 19:18:00 [facility] BMI Calculated 2022-07-08 19:18:00 [facility] Height 2022-06-22 16:03:00 5 [ft_i] [facility] Weight 2022-06-22 16:03:00 [facility] BMI Calculated 2022-06-22 16:03:00 [facility] Heart Rate 2022-06-04 17:04:00 [facility] Systolic (mm Hg) 2022-06-04 17:04:00 [facility] Diastolic (mm Hg) 2022-06-04 17:04:00 [facility] Height 2022-06-04 17:04:00 5 [ft_i] [facility] Weight 2022-06-04 17:04:00 [facility] BMI Calculated 2022-06-04 17:04:00 [facility] Heart Rate 2022-05-26 20:41:00 [facility] Systolic (mm Hg) 2022-05-26 20:41:00 [facility] Diastolic (mm Hg) 2022-05-26 20:41:00 [facility] Height 2022-05-26 20:41:00 5 [ft_i] [facility] Weight 2022-05-26 20:41:00 [facility] BMI Calculated 2022-05-26 20:41:00 [facility] Systolic (mm Hg) 2022-05-19 17:03:00 [facility] Diastolic (mm Hg) 2022-05-19 17:03:00 [facility] Heart Rate 2022-05-15 15:59:00 [facility] Systolic (mm Hg) 2022-04-17 04:38:00 [facility] Diastolic (mm Hg) 2022-04-17 04:38:00 [facility] Weight 2022-04-08 19:53:00 [facility] Systolic (mm Hg) 2022-04-08 19:52:48 [facility] Diastolic (mm Hg) 2022-04-08 19:52:48 [facility] Heart Rate 2022-04-08 19:52:48 [facility] Heart Rate 2022-03-17 17:24:00 [facility] Systolic (mm Hg) 2022-03-17 17:24:00 [facility] Diastolic (mm Hg) 2022-03-17 17:24:00 [facility] Heart Rate 2022-03-05 15:15:00 [facility] Systolic (mm Hg) 2022-03-05 15:15:00 [facility] Diastolic (mm Hg) 2022-03-05 15:15:00 [facility] Heart Rate 2022-02-18 18:54:00 [facility] Respitory Rate 2022-02-18 18:54:00 [facility] Systolic (mm Hg) 2022-02-18 18:54:00 [facility] Diastolic (mm Hg) 2022-02-18 18:54:00 [facility] Height 2022-02-18 18:54:00 175.26 cm [facility] Weight 2022-02-18 18:54:00 [facility] BMI Calculated 2022-02-18 18:54:00 [facility] Respitory Rate 2022-02-18 18:29:05 [facility] Systolic (mm Hg) 2022-02-18 18:28:57 [facility] Diastolic (mm Hg) 2022-02-18 18:28:57 [facility] Heart Rate 2022-02-18 18:28:57 [facility] Heart Rate 2022-02-04 22:04:00 [facility] Systolic (mm Hg) 2022-02-04 22:04:00 [facility] Diastolic (mm Hg) 2022-02-04 22:04:00 [facility] Heart Rate 2022-01-27 14:55:00 [facility] Respitory Rate 2022-01-27 14:55:00 [facility] Systolic (mm Hg) 2022-01-27 14:55:00 [facility] Diastolic (mm Hg) 2022-01-27 14:55:00 [facility] Height 2022-01-27 14:55:00 175.26 cm [facility] Weight 2022-01-27 14:55:00 [facility] BMI Calculated 2022-01-27 14:55:00 [facility] Heart Rate 2022-01-23 20:44:00 [facility] Systolic (mm Hg) 2022-01-23 20:44:00 [facility] Diastolic (mm Hg) 2022-01-23 20:44:00 [facility] Systolic (mm Hg) 2022-01-21 20:11:00 [facility] Diastolic (mm Hg) 2022-01-21 20:11:00 [facility] BP Systolic 2022-01-16 19:22:00 BP Diastolic 2022-01-16 19:22:00 Weight Measured 2022-01-16 19:22:00 165.00 pounds Height Measured 2022-01-16 19:22:00 69.00 inches Body Temperature 2022-01-16 19:22:00 Heart Rate 2022-01-16 19:22:00 Respiratory Rate 2022-01-16 19:22:00 Heart Rate 2022-01-14 20:05:00 [facility] Systolic (mm Hg) 2022-01-07 15:00:00 [facility] Diastolic (mm Hg) 2022-01-07 15:00:00 [facility] BP Systolic 2022-01-01 08:58:00 154 mm[Hg] BP Diastolic 2022-01-01 08:58:00 80 mm[Hg] Weight Measured 2022-01-01 08:58:00 Height Measured 2022-01-01 08:58:00 69.00 inches Body Temperature 2022-01-01 08:58:00 97.80 degrees Heart Rate 2022-01-01 08:58:00 86.00 /min Respiratory Rate 2022-01-01 08:58:00 18.00 /min Heart Rate 2021-12-09 14:04:00 [facility] Systolic (mm Hg) 2021-12-09 14:04:00 [facility] Diastolic (mm Hg) 2021-12-09 14:04:00 [facility] Height 2021-12-09 14:04:00 175.26 cm [facility] Heart Rate 2021-11-12 17:01:24 [facility] Respitory Rate 2021-11-12 17:01:24 [facility] Temperature Oral (F) 2021-11-12 17:01:13 97.3 F [facility] Systolic (mm Hg) 2021-11-12 17:00:45 [facility] Diastolic (mm Hg) 2021-11-12 17:00:45 [facility] Heart Rate 2021-11-12 17:00:45 [facility] Heart Rate 2021-11-12 13:17:38 [facility] Respitory Rate 2021-11-12 13:17:38 [facility] Temperature Oral (F) 2021-11-12 13:17:23 97.9 F [facility] Systolic (mm Hg) 2021-11-12 13:15:23 [facility] Diastolic (mm Hg) 2021-11-12 13:15:23 [facility] Respitory Rate 2021-11-12 10:04:03 [facility] Temperature Oral (F) 2021-11-12 10:03:52 97.3 F [facility] Systolic (mm Hg) 2021-11-12 10:03:15 [facility] Diastolic (mm Hg) 2021-11-12 10:03:15 [facility] Heart Rate 2021-11-10 05:53:10 [facility] Respitory Rate 2021-11-10 05:53:10 [facility] Systolic (mm Hg) 2021-11-10 05:53:00 [facility] Diastolic (mm Hg) 2021-11-10 05:53:00 [facility] Heart Rate 2021-11-10 05:53:00 [facility] Temperature Oral (F) 2021-11-10 05:52:54 97.7 F [facility] Heart Rate 2021-11-09 21:05:06 [facility] Respitory Rate 2021-11-09 21:05:06 [facility] Systolic (mm Hg) 2021-11-09 21:04:54 [facility] Diastolic (mm Hg) 2021-11-09 21:04:54 [facility] Temperature Oral (F) 2021-11-09 21:04:40 97.7 F [facility] Respitory Rate 2021-11-09 16:42:48 [facility] Temperature Oral (F) 2021-11-09 16:42:31 98.3 F [facility] Systolic (mm Hg) 2021-11-09 16:42:25 [facility] Diastolic (mm Hg) 2021-11-09 16:42:25 [facility] Height 2021-11-05 22:22:00 175.26 cm [facility] Weight 2021-11-05 22:22:00 [facility] BMI Calculated 2021-11-05 22:22:00 [facility] Respitory Rate 2021-10-11 21:00:00 [facility] Respitory Rate 2021-10-11 20:00:00 [facility] Systolic (mm Hg) 2021-10-11 20:00:00 [facility] Diastolic (mm Hg) 2021-10-11 20:00:00 [facility] Respitory Rate 2021-10-11 19:00:00 [facility] Systolic (mm Hg) 2021-10-11 19:00:00 [facility] Diastolic (mm Hg) 2021-10-11 19:00:00 [facility] Systolic (mm Hg) 2021-10-11 18:00:00 [facility] Diastolic (mm Hg) 2021-10-11 18:00:00 [facility] Height 2021-10-09 17:22:00 175.26 cm [facility] Weight 2021-10-09 17:22:00 [facility] BMI Calculated 2021-10-09 17:22:00 [facility] Temperature Oral (F) 2021-10-09 15:44:00 97.8 F [facility] Heart Rate 2021-10-09 10:12:00 [facility] Temperature Oral (F) 2021-10-09 10:12:00 98.4 F [facility] BP Systolic 2021-08-25 10:31:00 148 mm[Hg] BP Diastolic 2021-08-25 10:31:00 82 mm[Hg] Weight Measured 2021-08-25 10:31:00 169.00 pounds Height Measured 2021-08-25 10:31:00 69.00 inches Body Temperature 2021-08-25 10:31:00 98.30 degrees Heart Rate 2021-08-25 10:31:00 81.00 /min Respiratory Rate 2021-08-25 10:31:00 16.00 /min Procedures Procedure Date / Time Performing Clinician Source Performed [facility]moden[facility] of one 2022-11-12 22:06:00 [facility] extremity; 1-4 muscle(s) [facility]moden[facility] of one 2022-11-12 22:06:00 [facility] extremity; each additional extremity, 1-4 muscle(s) (List separately in addition to code for primary procedure) CT CERVICAL SPINE WO 2022-11-05 02:54:02 [facility] CONTRAST [place] CBC WITH PLATELET AND 2022-11-05 02:30:00 [facility] DIFFERENTIAL [place] BASIC METABOLIC PANEL 2022-11-05 02:30:00 [facility] [place] ESTIMATED GFR 2022-11-05 02:30:[facility] [facility] of one 2022-05-26 21:10:00 [facility] extremity; 1-4 muscle(s) [facility]en[facility] of one 2022-05-26 21:10:00 [facility] extremity; each additional extremity, 1-4 muscle(s) (List separately in addition to code for primary procedure) [id number] 2021-06-27 00:00:00 [facility] [id number] 2021-06-27 00:00:00 [facility] [id number] 2021-06-27 00:00:00 [facility] [id number] 2021-06-20 00:00:00 [facility] [id number] 2021-06-20 00:00:00 [facility] [id number] 2021-06-20 00:00:00 [facility] [id number] 2021-06-20 00:00:00 [facility] [id number] 2021-06-20 00:00:00 [facility] [id number] 2021-06-20 00:00:00 [facility] [id number] 2021-06-20 00:00:00 [facility] [id number] 2021-06-20 00:00:00 [facility] [id number] 2021-06-20 00:00:00 [facility] [id number] 2021-06-20 00:00:00 [facility] [id number] 2021-06-20 00:00:00 [facility] [id number] 2021-06-20 00:00:00 [facility] Hernia repair [facility] Spinal fusion [facility] Plan of Care Planned Activity Planned Date Details Comments Source Future Scheduled Test 2022-11-[address] [facility] 14:52:47 malignant neoplasm of colon (procedure) [code = [id number]] Future Scheduled Test 2022-11-[address] [facility] 14:52:47 malignant neoplasm of colon (procedure) [code = [id number]] Future Scheduled Test 2022-11-[address] [facility] 14:52:47 malignant neoplasm of colon (procedure) [code = [id number]] Future Scheduled Test 2022-11-19 COVID-19 VACCINE [facility] 14:52:47 (#1) [code = COVID-19 VACCINE (#1)] Future Scheduled Test 2022-11-[address] [facility] 14:52:47 screening (procedure) [code = [id number]] Future Scheduled Test 2022-11-[address] [facility] 14:52:47 malignant neoplasm of colon (procedure) [code = [id number]] Future Scheduled Test 2022-11-19 Screening for [facility] 14:52:47 malignant neoplasm of colon (procedure) [code = [id number]] Future Scheduled Test 2022-11-19 SHINGLES VACCINES [facility] 14:52:47 (1 of 2) [code = SHINGLES VACCINES (1 of 2)] Future Scheduled Test 2022-11-19 INFLUENZA VACCINE [facility] 14:52:47 [code = INFLUENZA VACCINE] Future Scheduled Test 2022-11-19 Scre[facility] 14:52:47 malignant neoplasm of colon (procedure) [code = [id number]] Future Scheduled Test 2022-11-19 Screening for [facility] 14:52:47 malignant neoplasm of colon (procedure) [code = [id number]] Future Scheduled Test 2022-11-19 [facility] [facility] 14:52:47 malignant neoplasm of colon (procedure) [code = 855718939] Future Scheduled Test 2022-11-19 COVID-19 VACCINE [facility] 14:52:47 (#1) [code = COVID-19 VACCINE (#1)] Future Scheduled Test 2022-11-[address] [facility] 14:52:47 screening (procedure) [code = 733234183] Future Scheduled Test 2022-11-19 [facility] 14:52:47 malignant neoplasm of colon (procedure) [code = 491641796] Future Scheduled Test 2022-11-19 [facility] 14:52:47 malignant neoplasm of colon (procedure) [code = 499110915] Future Scheduled Test 2022-11-19 SHINGLES VACCINES [facility] 14:52:47 (1 of 2) [code = SHINGLES VACCINES (1 of 2)] Future Scheduled Test 2022-11-19 INFLUENZA VACCINE [facility] 14:52:47 [code = INFLUENZA VACCINE] Future Scheduled Test 2022-11-19 Screening [facility] 14:52:47 malignant neoplasm of colon (procedure) [code = 374153593] Future Scheduled Test 2022-11-19 Scre[facility] 14:52:47 malignant neoplasm of colon (procedure) [code = 526318057] Future Scheduled Test 2022-11-19 [facility] 14:52:47 malignant neoplasm of colon (procedure) [code = 652673242] Future Scheduled Test 2022-11-19 COVID-19 VACCINE [facility] 14:52:47 (#1) [code = COVID-19 VACCINE (#1)] Future Scheduled Test 2022-11-[address] [facility] 14:52:47 screening (procedure) [code = 421268697] Future Scheduled Test 2022-11-19 Scre[facility] 14:52:47 malignant neoplasm of colon (procedure) [code = 629675705] Future Scheduled Test 2022-11-19 [facility] 14:52:47 malignant neoplasm of colon (procedure) [code = 330369667] Future Scheduled Test 2022-11-19 SHINGLES VACCINES [facility] 14:52:47 (1 of 2) [code = SHINGLES VACCINES (1 of 2)] Future Scheduled Test 2022-11-19 INFLUENZA VACCINE [facility] 14:52:47 [code = INFLUENZA VACCINE] Future Scheduled Test 2022-11-[address] [facility] 03:10:23 screening (procedure) [code = 048246924] Future Scheduled Test 2022-11-13 Scre[facility] 03:10:23 malignant neoplasm of colon (procedure) [code = 790169353] Future Scheduled Test 2022-11-13 Scre[facility] 03:10:23 malignant neoplasm of colon (procedure) [code = 662749081] Future Scheduled Test 2022-11-13 SHINGLES VACCINES [facility] 03:10:23 (1 of 2) [code = SHINGLES VACCINES (1 of 2)] Future Scheduled Test 2022-11-13 INFLUENZA VACCINE [facility] 03:10:23 [code = INFLUENZA VACCINE] Future Scheduled Test 2022-11-13 Scre[facility] 03:10:23 malignant neoplasm of colon (procedure) [code = 792781558] Future Scheduled Test 2022-11-13 Scre[facility] 03:10:23 malignant neoplasm of colon (procedure) [code = 868768495] Future Scheduled Test 2022-11-13 [facility] 03:10:23 malignant neoplasm of colon (procedure) [code = 528457998] Future Scheduled Test 2022-11-13 COVID-19 VACCINE [facility] 03:10:23 (#1) [code = COVID-19 VACCINE (#1)] Future Scheduled Test 2022-11-05 Screening [facility] 07:49:03 malignant neoplasm of colon (procedure) [code = 142473053] Future Scheduled Test 2022-11-05 Scre[facility] 07:49:03 malignant neoplasm of colon (procedure) [code = 602999903] Future Scheduled Test 2022-11-05 [facility] 07:49:03 malignant neoplasm of colon (procedure) [code = 164355964] Future Scheduled Test 2022-11-05 COVID-19 VACCINE [facility] 07:49:03 (#1) [code = COVID-19 VACCINE (#1)] Future Scheduled Test 2022-11-[address] [facility] 07:49:03 screening (procedure) [code = 883006767] Future Scheduled Test 2022-11-05 Scre[facility] 07:49:03 malignant neoplasm of colon (procedure) [code = 867962248] Future Scheduled Test 2022-11-05 [facility] 07:49:03 malignant neoplasm of colon (procedure) [code = 754432380] Future Scheduled Test 2022-11-05 SHINGLES VACCINES [facility] 07:49:03 (1 of 2) [code = SHINGLES VACCINES (1 of 2)] Future Scheduled Test 2022-11-05 INFLUENZA VACCINE [facility] 07:49:03 [code = INFLUENZA VACCINE] Medication 2023-10-28 trazodone 50 mg [facility] 19:29:00 oral tablet [code = 276205] Medication 2023-10-28 trazodone 50 mg [facility] 19:29:00 oral tablet [code = 234676] Medication 2023-10-28 Cymbalta 30 mg oral [facility] 19:18:00 delayed release capsule [code = 285751] Medication 2023-10-28 Cymbalta 30 mg oral [facility] 19:18:00 delayed release capsule [code = 850307] Goal Plan of Care Note [code = 69100-4] Goal Plan of Care Note [code = 11133-1] Goal Plan of Care Note [code = 46576-4] Goal Plan of Care Note [code = 62993-2] Goal Plan of Care Note [code = 65334-3] Goal Plan of Care Note [code = 13956-6] Goal Plan of Care Note [code = 75555-2] Goal Plan of Care Note [code = 90713-6] Goal Plan of Care Note [code = 63140-6] Goal Plan of Care Note [code = 25173-1] Goal Plan of Care Note [code = 28293-9] Goal Plan of Care Note [code = 13669-3] Goal Plan of Care Note [code = 87994-7] Goal Plan of Care Note [code = 51387-6] Goal Plan of Care Note [code = 03245-6] Goal Plan of Care Note [code = 64700-3] Goal Plan of Care Note [code = 93874-1] Goal Plan of Care Note [code = 66501-5] Goal Plan of Care Note [code = 95838-4] Goal Plan of Care Note [code = 98338-5] Goal Plan of Care Note [code = 57369-4] Goal Plan of Care Note [code = 04932-5] Goal Plan of Care Note [code = 61881-3] Goal Plan of Care Note [code = 44267-1] Goal Plan of Care Note [code = 23596-3] Goal Plan of Care Note [code = 44800-4] Encounters Start End Encounter Admission Attending Care Care Encounter Source Date/Time Date/Time Type Type Clinicians Facility Department ID 2022-11-23 Outpatient [facility] [id number] [place] 07:48:21 [id number] [facility] 2022-11-21 Outpatient [facility] [id number] [place] 03:51:25 [id number] [facility] 2022-11-20 Outpatient [facility] [id number] [place] 11:54:10 [id number] [facility] 2022-11-19 Outpatient [facility] [id number] [place] 03:31:31 [id number] [facility] 2022-11-14 Outpatient [facility] [id number] [place] 03:55:39 [id number] [facility] 2022-11-13 Outpatient [facility] [id number] [place] 03:57:28 [id number] [facility] 2022-11-10 Outpatient [facility] [id number] [place] 03:34:57 [id number] [facility] 2022-11-09 Outpatient [facility] [id number] [place] 08:54:37 [id number] [facility] 2022-11-06 Outpatient [facility]TH U[facility] [id number] [place] 03:35:57 [id number] [facility] 2022-10-30 Outpatient [facility]TH U[facility] [id number] [place] 03:38:50 [id number] [facility] 2022-10-29 Outpatient [facility] U[facility] [id number] [place] 13:33:17 [id number] [facility] 2022-10-28 Outpatient [facility]TH UTH [id number] [place] 04:03:53 [id number] [facility] 2022-10-15 Outpatient [facility]TH UTH [id number] [place] 13:49:37 [id number] [facility] 2022-10-05 Outpatient UTH [place] [id number] [place] 03:46:44 [id number] [facility] 2022-10-01 Outpatient UTH [place] [id number] [place] 04:06:54 [id number] [facility] 2022-09-25 Outpatient UTH UTH [id number] [place] 08:40:19 [id number] [facility] 2022-09-22 Outpatient UTH UTH [id number] [place] 10:13:39 [id number] [facility] 2022-09-18 Outpatient UTH UTH [id number] [place] 04:06:06 [id number] [facility] 2022-09-17 Outpatient [facility]TH UTH [id number] [place] 10:29:40 [id number] [facility] 2022-09-02 Outpatient [facility]TH UTH [id number] [place] 10:00:01 [id number] [facility] 2022-08-27 Outpatient UTH UTH [id number] [place] 04:23:35 [id number] [facility] 2022-08-07 Outpatient UTH UTH [id number] [place] 04:18:26 [id number] [facility] 2022-07-21 Outpatient [facility]TH UTH [id number] [place] 04:21:31 [id number] [facility] 2022-07-17 Outpatient UTH UTH [id number] [place] 04:23:54 [id number] [facility] 2022-07-11 Outpatient UTH UTH [id number] [place] 04:21:11 [id number] [facility] 2022-07-02 Outpatient UTH UTH [id number] [place] 11:51:37 [id number] [facility] 2022-06-26 Outpatient UTH UTH [id number] [place] 15:02:18 [id number] [facility] 2022-06-23 Outpatient UTH UTH [id number] [place] 04:18:21 [id number] [facility] 2022-06-19 Outpatient UTH UTH [id number] [place] 04:14:51 [id number] [facility] 2022-06-17 Outpatient UTH UTH [id number] [place] 13:33:26 [id number] [facility] 2022-06-16 Outpatient UTH UTH [id number] [place] 08:39:52 [id number] [facility] 2022-06-12 Outpatient UTH UTH [id number] [place] 09:18:44 [id number] [facility] 2022-06-10 Outpatient UTH UTH [id number] [place] 12:12:54 [id number] [facility] 2022-06-05 Outpatient UTH UTH [id number] [place] 08:09:28 [id number] [facility] 2022-06-02 Outpatient UTH UTH [id number] [place] 11:19:49 [id number] [facility] 2022-05-26 Outpatient UTH UTH [id number] [place] 09:01:46 [id number] [facility] 2022-05-05 Outpatient UTH UTH [id number] [place] 14:20:56 [id number] [facility] 2022-04-29 Outpatient UTH UTH [id number] [place] 13:18:56 [id number] [facility] 2022-04-28 Outpatient UTH UTH [id number] [place] 07:00:48 [id number] [facility] 2022-04-27 Outpatient UTH UTH [id number] [place] 06:50:42 [id number] [facility] 2022-04-20 Outpatient UTH UTH [id number] [place] 06:27:33 [id number] [facility] 2022-04-11 Outpatient UTH UTH [id number] [place] 04:09:20 [id number] [facility] 2022-04-07 Outpatient [place]TH U[place] [id number] [place] 08:52:49 [id number] [facility] 2022-03-12 Outpatient [facility] [id number] [place] 04:03:30 [id number] [facility] 2022-03-11 Outpatient [facility] [id number] [place] 08:18:32 [id number] [facility] 2022-11-28 2022-11-28 Outpatient [facility] [id number] [place] 10:29:17 10:29:17 [id number] Fosters 2022-11-12 2022-11-13 Outpatient MHIE TR [id number] Memoria 20:03:00 04:59:00 Spasticity 16 l [facility] ([facility] 2022-11-12 2022-11-13 Outpatient MHIE TR [id number] Memoria 20:03:00 04:59:00 Spasticity 16 l [facility] ([facility]) 2022-11-12 2022-11-12 Outpatient Korupolu, MHTIRR MHTIRR [id number] 15:03:00 23:59:00 Nakia 16 2022-11-12 2022-11-12 External Korupolu, EXT MSRDP 1.2.840.114 1 [id number] [place] 15:45:00 16:15:00 Contact Nakia LOCATION 350.1.13.58 H ealth 9.2.7.2.686 [id number] 6 2022-11-04 2022-11-05 Emergency Carrie Diamond 1.2.840.1 [id number] Methodi 17:13:00 01:16:00 Chumillicent Hagan 07978.1.1 070 s t 3.430.2.7 Hospit a .3.878976 l .8 2022-11-04 2022-11-05 Emergency Carrie Diamond 1.2.840.1 [id number] Methodi 17:13:00 01:16:00 Chul Bentley 02585.1.1 070 s t 3.430.2.7 Hospit a .3.157900 l .8 2022-11-04 2022-11-04 Travel 1.2.840.1 1.2.733.610 [id number] Methodi 00:00:00 00:00:[address] 3.430.2.7 0.2.7.3.698 Ho spita .3.991705 084.8 l .8 2022-11-04 2022-11-04 Travel 1.2.840.1 1.2.833.728 5908 [id number] Methodi 00:00:00 00:00:[address] 3.430.2.7 0.2.7.3.698 Ho spita .3.321746 084.8 l .8 2022-11-02 2022-11-03 Outpatient MHIE TR [id number] Memoria 17:56:00 04:59:00 Psychiatric 15 l s/Psychothe [facility] rapy (PSYR) 2022-11-02 2022-11-03 Outpatient MHIE TR [id number] Memoria 17:56:00 04:59:00 Psychiatric 15 l s/Psychothe [facility] rapy (PSYR) 2022-11-02 2022-11-02 Outpatient Chandleria, MHTIRR MHTIRR [id number] 12:56:00 23:59:00 Familia 15 Robert 2022-09-30 2022-10-30 Tots MHIE TIRR [id number] Memoria 19:00:00 04:59:00 Therapy [facility] 06 l [place] 2022-09-30 2022-10-30 Tots MHIE TIRR [id number] Memoria 19:00:00 04:59:00 Therapy [facility] 06 l [place] 2022-09-30 2022-10-29 Outpatient Orin, MHTIRR MHTIRR [id number] 14:00:00 23:59:00 Nakia 06 2022-10-14 2022-10-15 Outpatient MHIE TR [id number] Memoria 18:37:00 04:59:00 [facility]-10[facility]14 2022-10-15 Outpatient MHIE TR [id number] Memoria 18:37:00 04:59:00 Outpatient 13 l [facility] (OPCR) 2022-10-14 2022-10-14 Outpatient Ching, MARY ANNETIRR TIRR [id number] 13:37:00 23:59:00 Neal Rey 13 2022-09-29 2022-09-30 Outpatient MHIE TR Spinal [id number] Memoria 14:23:00 04:59:00 Cord Inj 11 l [facility] [place] (SCIR) 2022-09-29 2022-09-30 Outpatient MHIE TR Spinal [id number] Memoria 14:23:00 04:59:00 Cord Inj 11 l [facility] [place] (SCIR) 2022-09-29 2022-09-30 Outpatient MHIE TR [id number] Memoria 14:20:00 04:59:00 Spasticity 12 l [facility] 2022-09-29 2022-09-30 Outpatient MHIE TR [id number] Memoria 14:20:00 04:59:00 Spasticity 12 l [facility] 2022-09-29 2022-09-29 Outpatient MARY ANNE AlbertTIRCarolee TIRR [id number] 09:23:00 23:59:00 Argyrios 11 2022-09-29 2022-09-29 Outpatient NERY Sr TIRR [id number] 09:20:00 23:59:00 Nakia 12 2022-09-29 2022-09-29 External Stampas, EXT MSRDP 1.2.840.114 14 [id number] [place] 14:15:00 14:45:00 Contact Argyrios LOCATION 350.1.13.58 Health 9.2.7.2.686 [id number] 6 2022-09-29 2022-09-29 External Korupolu, EXT MSRDP 1.2.840.114 1 [id number] [place] 10:15:00 10:45:00 Contact Nakia LOCATION 350.1.13.58 H ealth 9.2.7.2.686 [id number] 6 2022-07-29 2022-08-28 Tots MHIE TIRR [id number] Memoria 14:00:00 04:59:00 Therapy [facility] 2022-07-29 2022-08-28 Tots MHIE TIRR [id number] Memoria 14:00:00 04:59:00 Therapy [facility] Long [facility] 2022-07-29 2022-08-27 Outpatient MARY ANNE SrTIRR MHTIRR [id number] 08:00:00 23:59:00 Nakia 04 2022-08-24 2022-08-25 Outpatient MHIE TR Urology [id number] Memoria 13:23:00 04:59:00 Clinic 05 l (UROR) [place] 2022-08-24 2022-08-25 Outpatient MHIE TR Urology [id number] Memoria 13:23:00 04:59:00 Clinic 05 l (UROR) [facility] 2022-08-24 2022-08-24 Outpatient Ching MHTIRR MHTIRR [id number] 08:23:00 23:59:00 Neal Rey Watkins 2022-08-24 2022-08-24 Outpatient [facility] [id number] [place] 08:45:00 08:45:00 [facility] 2022-08-22 2022-08-22 Tots MHIE TIRR [id number] Memoria 13:00:00 13:00:00 Therapy [facility] 2022-08-22 2022-08-22 Tots MHIE TIRR [id number] Memoria 13:00:00 13:00:00 Therapy [facility] June [facility] 2022-08-22 2022-08-22 Tots MHIE TIRR [id number] Memoria 13:00:00 13:00:00 Therapy [facility] 04 millicent [place] 2022-08-22 2022-08-22 Tots MHIE TIRR [id number] Memoria 13:00:00 13:00:00 Therapy [facility] June [place] 2022-08-22 2022-08-22 Outpatient Megan MHTIRR MHTIRR [id number] 08:00:00 08:00:00 Marguerite Alves 2022-08-22 2022-08-22 Outpatient Roosevelt MHTIRR MHTIRR [id number] 08:00:00 08:00:00 Argyrios 05 2022-06-22 2022-07-22 Recurring MHIE TIRR [id number] Memoria 15:25:00 05:59:00 Memorial 02 l [place] Burtonann 2022-06-22 2022-07-22 Recurring MHIE TIRR [id number] Memoria 15:25:00 05:59:00 [facility] 02 l [facility] [facility] 2022-06-22 2022-07-21 Outpatient Roosevelt, MHTIRR MHTIRR [id number] 09:25:00 23:59:00 Argyrios 02 2022-07-08 2022-07-09 Outpatient MHIE TR [id number] Memoria 18:39:00 05:59:00 Spasticity 09 l Mgmt [facility] ([facility]) 2022-07-08 2022-07-09 Outpatient MHIE TR [id number] Memoria 18:39:00 05:59:00 Spasticity 09 l Mgmt [facility] ([facility]) 2022-07-08 2022-07-08 Outpatient MARY ANNE SrTIRCarolee TIRR [id number] 12:39:00 23:59:00 Nakia 09 2022-07-08 2022-07-08 External KORWILBERDOJesus Alberto, EXT MSRDP 1.2.840.114 1 [id number] [place] 12:45:00 12:45:00 Contact NAKIA LOCATION 350.1.13.58 [facility] 9.2.7.2.686 [id number] 6 2022-06-17 2022-06-18 Outpatient MHIE TR EMG [id number] Memoria 16:59:00 05:59:00 Clinic 07 l (EMGR) [place] 2022-06-17 2022-06-18 Outpatient MHIE TR EMG [id number] Memoria 16:59:00 05:59:00 Clinic 07 l (EMGR) [place] 2022-06-17 2022-06-18 Outpatient MHIE TIRR [id number] Memoria 16:44:00 05:59:00 Memorial 10 l [place] 2022-06-17 2022-06-18 Outpatient MHIE TIRR [id number] Memoria 16:44:00 05:59:00 [facility] 10 l [place] [facility] 2022-06-17 2022-06-17 Outpatient Judejenna, MHTIRR MHTIRR [id number] 10:59:00 23:59:00 Becky 07 2022-06-17 2022-06-17 Outpatient Roosevelt, MARY ANNETIRR MHTIRR [id number] 10:44:00 23:59:00 Argyrios 10 2022-06-17 2022-06-17 Outpatient ALEXANDER [facility] [id number] [place] 13:00:00 13:00:00 [facility] 2022-06-04 2022-06-05 Outpatient MHIE TR Spinal [id number] Memoria 16:45:00 05:59:00 Cord Inj 04 l [facility] (SC[facility]) 2022-06-04 2022-06-05 Outpatient MHIE TR Spinal [id number] Memoria 16:45:00 05:59:00 Cord Inj 04 l [facility] ([facility]) 2022-06-04 2022-06-04 Outpatient Roosevelt MARY ANNETIRR MHTIRR [id number] 10:45:00 23:59:00 Argyrios 04 2022-06-04 2022-06-04 External ROOSEVELT, EXT MSRDP 1.2.840.114 14 [id number] [place] 11:15:00 11:15:00 Contact TONY LOCATION 350.1.13.58 [facility] 9.2.7.2.686 [id number] 6 2022-05-12 2022-05-31 Tots MHIE TIRR [id number] Memoria 16:49:00 00:00:00 Therapy [facility] 2022-05-12 2022-05-31 Tots MHIE TIRR [id number] Memoria 16:49:00 00:00:00 Therapy [facility] 2022-05-12 2022-05-30 Outpatient THEA SrR MHTIRR [id number] 10:49:00 18:00:00 Nakia 2022-05-26 2022-05-27 Outpatient MHIE TR [id number] Memoria 19:30:00 05:59:00 Spasticity 06 l Proc [facility] ([facility]) 2022-05-26 2022-05-27 Outpatient MHIE TR [id number] Memoria 19:30:00 05:59:00 Spasticity 06 l [facility] Francisca conn [facility] 2022-05-27 2022-05-27 [facility] [place] 00:00:00 00:00:00 1228 [facility] 2022-05-26 2022-05-26 Outpatient MARY ANNE SrTIRR MHTIRR [id number] 13:30:00 23:59:00 Nakia 06 2022-05-26 2022-05-26 Outpatient ORIN, [facility] [id number] [place] 14:30:00 14:30:00 [facility] 2022-04-11 2022-05-11 Tots MHIE TIRR [id number] Memoria 20:00:00 05:59:00 Therapy [facility] 03 [facility] [place] 2022-04-11 2022-05-11 Tots MHIE TIRR [id number] Memoria 20:00:00 05:59:00 Therapy [facility] 03 [facility] 2022-04-11 2022-05-10 Outpatient Megan MHTIRR MHTIRR [id number] 14:00:00 23:59:00 Marguerite 03 Yesy 2022-04-22 2022-04-22 Outpatient GAMALIELSON_C [facility] 2021 [place] 00:00:00 00:00:00 1123 Commun i ty [facility] 2022-03-12 2022-04-11 Tots nullFlavo TIRR [id number] Memoria 14:30:00 05:59:00 Therapy r [facility] 02 mill[facility]ent [place] 2022-03-12 2022-04-11 Tots nullFlavo TIRR [id number] Memoria 14:30:00 05:59:00 Therapy r [facility] 02 [facility]ent [place] 2022-03-12 2022-04-10 Outpatient Megan, MHTIRR MHTIRR [id number] 09:30:00 23:59:00 Marguerite 02 Yesy 2022-04-08 2022-04-09 [place] [id number] Memoria 19:33:00 05:59:00 r Spasticity 03 l Mgmt [facility] ([facility]) 2022-04-08 2022-04-09 [place] [id number] Memoria 19:33:00 05:59:00 r Spasticity 03 l Mgmt [facility] ([facility]) 2022-04-08 2022-04-08 Outpatient Ramonjesus alberto, TIRR TIRR [id number] 13:33:00 23:59:00 Nakia 03 2022-04-08 2022-04-08 Office ORIN, EXT MSRDP 1.2.840.114 14 [id number] [place] 14:15:00 14:15:00 Visit NAKIA LOCATION 350.1.13.58 H [facility] 9.2.7.2.686 [id number] 6 2022-03-19 2022-03-19 [facility] 2021 [place] 00:00:00 00:00:00 1020 Commun i ty [facility] 2022-03-17 2022-03-17 [facility] [id number] [place] 00:00:00 00:00:00 1018 Commun i ty Hospita [facility] 2022-03-17 2022-03-17 [facility] [place] 00:00:00 00:00:00 [facility] MSN, RAILROAD CAR LETTERER, Hospital - ty PHOTOENGRAVING SKETCH MAKER-C: [address] [place] [facility] [address], [facility] [address], Madhu Hernandez, [place] MSN, PHOTOENGRAVING SKETCH MAKER-C [id number] , Ph. 2022-02-10 2022-03-12 Tots nullFlavo TIRR [id number] Memoria 17:54:00 04:59:00 Therapy [facility] [place] 2022-02-10 2022-03-12 Tots nullFlavo TIRR [id number] Memoria 17:54:00 04:59:00 Therapy r [facility] 2022-02-10 2022-03-11 Outpatient Megan, ELIZABETH TIRR [id number] 12:54:00 23:59:00 Marguerite e 2022-03-03 2022-03-03 Outpatient [id number] 00:00:00 00:00:00 Visit [id number]-1915 e4m-4599-c -[id number]-09h [id number]-85s96u [id number] 85c67c 2022-02-18 2022-02-19 [place] [id number] Memoria 18:11:00 04:59:00 r Spasticity 02 l [facility] ([facility]) 2022-02-18 2022-02-19 [place] [id number] Mem[facility] 18:11:00 04:59:00 r Spasticity 02 l Proc [facility] ([facility]) 2022-02-18 2022-02-18 Outpatient NERY Sr TIR [id number] 13:11:00 23:59:00 [place] [address] 2022-02-18 2022-02-[address] [id number] [place] 13:45:00 13:45:00 [facility] 2022-01-09 2022-02-08 Tots nullFlavo TIRR [id number] Memoria 05:00:00 04:59:00 Therapy r Memorial 00 l [facility] 2022-01-09 2022-02-08 Tots nullFlavo TIRR [id number] Memoria 05:00:00 04:59:00 [facility] 2022-[facility]-09 2022-02-07 Outpatient Megan ELIZABETH TIR [id number] 00:00:00 23:59:00 Marguerite e 2022-01-27 2022-01-28 [place] [id number] Memoria 14:28:00 04:59:00 r Spasticity 01 l [facility] 2022-01-27 2022-01-28 [place] [id number] Mem[facility] 14:28:00 04:59:00 r Spasticity 01 l [facility] ([facility]) 2022-01-27 2022-01-27 Outpatient NERY Sr MHTIRR [id number] 09:28:00 23:59:00 Nakia 01 2022-01-27 2022-01-27 Outpatient ORIN [facility] [id number] [place] 09:45:00 09:45:00 [facility] 2022-01-16 2022-01-16 Outpatient [id number] 00:00:00 00:00:00 Visit [id number] 2022-01-14 2022-01-15 Outpt Diag nullFlavo [facility] [id number] Memoria 17:05:00 04:59:00 Services r Outpatient 03 l Imaging [facility] 2022-01-14 2022-01-15 Outpt Diag nullFlavo [facility] [id number] Memoria 17:05:00 04:59:00 Services r Outpatient 03 l [facility] 2022-01-14 2022-01-14 Outpatient Cruz Blackwell MHOIP MHOIP [id number] 12:05:00 23:59:00 Layne 03 2021-12-09 2022-01-08 Tots nullFlavo TIRR [id number] Memoria 13:29:00 04:59:00 Therapy r [facility] 2021-12-09 2022-01-08 Tots nullFlavo TIRR [id number] Memoria 13:29:00 04:59:00 Therapy r [facility] 2021-12-09 2022-01-07 Outpatient NERY Guzman MHTIRR [id number] 08:29:00 23:59:00 Marguerite Hayward 2022-01-03 2022-01-04 Outpt Diag nullFlavo [facility] [id number] Memoria 17:11:00 04:59:00 Services r Outpatient 02 l [facility] 2022-01-03 2022-01-04 Outpt Diag nullFlavo [facility] [id number] [facility] 17:11:00 04:59:00 Services r Outpatient 02 l [facility] 2022-01-03 2022-01-03 Outpatient MICHAEL Guzman [facility] [id number] 12:11:00 23:59:00 Marguerite [place]ward 2022-01-01 2022-01-01 Outpatient [id number] 1a [id number] 00:00:00 00:00:00 Visit [id number] 2021-12-29 2021-12-29 Telephone MARINA Gasca 640 1.2.840.114 [id number] [place] 00:00:00 00:00:00 Megan MICHEL [id number] Health [id number] 2021-12-26 2021-12-26 Telephone Bee Meehan [facility] 1.2.840 .[id number] [place] 00:00:00 00:00:00 Bee Meehan [facility] [id number] Health [place] 9.2.7.2.686 MEDICAL [id number] [address] 1 5 2021-12-25 2021-12-25 Outpatient [facility] 2021 [place] 00:00:00 00:00:00 0728 Commun i ty Hospita l [facility] 2021-12-25 2021-12-25 Girma [facility] [place] - [place] 00:00:00 00:00:00 Amirah Hernandez Formerly [facility], [facility] MSN, RAILROAD CAR LETTERER, Hospital - ty PHOTOENGRAVING SKETCH MAKER-C: [address] [place] [facility] l [facility], Clinic s [address], [place] [address], [place] Hernandez [place] MSN, PHOTOENGRAVING SKETCH MAKER-C [address] , Ph. 2021-12-25 2021-12-25 Outpatient David [facility] [id number] 00:00:00 00:00:00 Girma [id number] 2021-12-25 2021-12-25 Telephone MARINA Gasca 6400 1.2.840.114 [id number] [place] 00:00:00 00:00:[address] [id number] Health [id number] 2021-12-22 2021-12-22 Telephone MARINA Guzman [facility] 1.2.840.114 [id number] [place] 00:00:00 00:00:00 Marguerite [facility] [id number] [facility] 9.2.7.2.686 MEDICAL [id number] PLA[address] 1 5 2021-12-16 2021-12-16 Outpatient [facility] 2021 [place] 02:33:00 02:33:00 0719 Commun i ty Hospita l Clinics 2021-12-16 2021-12-16 [facility] [place] 00:00:00 00:00:00 David [facility] MSN, RAILROAD CAR LETTERER, Hospital - ty PHOTOENGRAVING SKETCH MAKER-C: [address] [place] [facility], Clinic s [address], [facility] [address], Madhu [place], [place] MSN, PHOTOENGRAVING SKETCH MAKER-C [address] , Ph. 2021-12-16 2021-12-16 [facility] [id number] 00:00:00 00:00:00 Girma [id number] 2021-12-12 2021-12-12 Telephone MARINA Gasca 6400 1.2.840.114 [id number] [place] 00:00:00 00:00:[address] [id number] Health [id number] 2021-12-10 2021-12-10 [facility] 2021 [place] 04:16:00 04:16:00 0713 Commun i ty Hospita l Clinics 2021-12-10 2021-12-10 [facility] [place] 13 [place] 00:00:00 00:00:00 David, [facility] uni MSN, RAILROAD CAR LETTERER, Hospital - ty PHOTOENGRAVING SKETCH MAKER-C: [address] [place] [facility], Clinic s [address], [facility] [address], Madhu Hernandez, [place] MSN, PHOTOENGRAVING SKETCH MAKER-C [address] , Ph. 2021-12-10 2021-12-10 [facility] [id number] 00:00:00 00:00:00 Girma [id number] 2021-11-25 2021-11-26 Outpt Diag nullFlavo [facility] [id number] Mem[place] 16:23:00 04:59:00 Services r Outpatient 01 l [facility] 2021-11-25 2021-11-26 Outpt Diag nullFlavo [facility] [id number] Mem[place] 16:23:00 04:59:00 Services r Outpatient 01 l Imaging [facility] 2021-11-25 2021-11-25 Outpatient Megan [facility] [id number] 11:23:00 23:59:00 Marguerite Sebastián Hyaward 2021-11-25 2021-11-25 Office Gasca, [facility] 6400 1.2.840.114 [id number] [place] 11:30:00 11:45:00 Visit Megan MICHEL [id number] [facility] [id number] 2021-11-25 2021-11-25 Outpatient DAVID_Nixon [facility] [id number] [place] 04:45:00 04:45:00 0628 Commun i ty Hospita l Clinics 2021-11-25 2021-11-25 [facility] [place] 28 [place] 00:00:00 00:00:00 David [facility] uni MSN, RAILROAD CAR LETTERER, Hospital - ty PHOTOENGRAVING SKETCH MAKER-C: [address] [place] [facility], Clinic, Clinic s [address], [place] [address], [place] MSN, PHOTOENGRAVING SKETCH MAKER-C [address] , Ph. 2021-11-25 2021-11-25 Outpatient David [facility] [id number] 00:00:00 00:00:00 [place] [id number] 2021-11-21 2021-11-21 Outpatient SISDAVID_C [facility] 2021 [place] 02:07:00 02:07:00 0624 Commun i ty Hospita l [facility] 2021-11-21 2021-11-21 [facility] [place] 00:00:00 00:00:00 David, [facility] uni MSN, RAILROAD CAR LETTERER, Hospital - ty PHOTOENGRAVING SKETCH MAKER-C: [address] [place] [facility], Clinic s [address], [place] [address], [place] Hernandez, [place]IRANDA MSN, PHOTOENGRAVING SKETCH MAKER-C [address] , Ph. 2021-11-21 2021-11-21 Outpatient David [facility] [id number] 00:00:00 00:00:00 Gir[place] [id number] 2021-11-20 2021-11-20 Outpatient DAVID_Nixon [facility] 2021 [place] 02:18:00 02:18:00 0623 Commun i ty Hospita l Clinics 2021-11-20 2021-11-20 Outpatient David [facility] [id number] 00:00:00 00:00:00 Girma [id number] 2021-11-20 2021-11-20 [facility] [place] 00:00:00 00:00:00 David, [facility] MSN, RAILROAD CAR LETTERER, Hospital - ty PHOTOENGRAVING SKETCH MAKER-C: [address] [place] [facility], Clinic s [address], [place] [address], Madhu Hernandez, [place] MSN, [facility] [address] , Ph. 2021-11-19 2021-11-19 Outpatient SISSON_C [facility] [id number] [place] 02:31:00 02:31:00 0622 Commun i ty Hospita l [facility] 2021-11-19 2021-11-19 [facility] [id number] 00:00:00 00:00:00 [facility] [id number] 2021-11-19 2021-11-19 [facility] [place] 00:00:00 00:00:00 Amirah Hernandez Chasity tomlin MSN, RAILROAD CAR LETTERER, [facility] PHOTOENGRAVING SKETCH MAKER-C: 303 [facility], Clinic s [address], [place] [address], Madhu [place], [place] MSN, PHOTOENGRAVING SKETCH MAKER-C [address] , Ph. 2021-11-18 2021-11-18 Outpatient DAVID[facility] 2021 [place] 03:03:00 03:03:00 0621 Commun i ty Hospita l [facility] 2021-11-18 2021-11-18 Telephone MARINA Gasca 6400 1.2.840.114 [id number] [place] 00:00:00 00:00:[address] [id number] Health 9.2.7.2.686 [id number] 2021-11-18 2021-11-18 Telephone MARINA Gasca 6400 1.2.840.114 [id number] [place] 00:00:00 00:00:[address] [id number] Health 9.2.7.2.686 [id number] 2021-11-13 2021-11-13 Telephone MARINA Gasca 6400 1.2.840.114 [id number] [place] 00:00:00 00:00:[address] [id number] Health 9.2.7.2.686 [id number] 2021-11-04 2021-11-12 Observatio nullFlavo [facility] 4732 [id number] [place] 20:27:00 20:03:00 n [facility] 58 [facility] 2021-11-04 2021-11-12 Observatio nullFlavo [facility] [id number] [place] 20:27:00 20:03:00 n [facility] 58 [facility] 2021-11-05 2021-11-12 Outpatient E JUSTIN, [facility] 2158 [facility] 15:36:00 15:03:00 [facility] 2021-11-04 2021-11-12 Outpatient Justin, [facility] [id number] 15:27:00 15:03:00 [place] [id number] 2021-11-12 2021-11-12 Telephone MARINA Gasca 6400 1.2.840.114 [id number] [place] 00:00:00 00:00:[address] [id number] Health 9.2.7.2.686 [id number] 2021-11-04 2021-11-04 Outpatient MEDHAT [facility] 9370 [facility] 15:27:00 23:59:00 LUIS 2021-11-04 2021-11-04 [facility] [id number] 15:27:00 15:27:00 [place] [id number] 2021-11-04 2021-11-04 Telephone MARINA Gasca 6400 1.2.840.114 [id number] [place] 00:00:00 00:00:[address] [id number] Health 9.2.7.2.686 [id number] 2021-11-03 2021-11-03 Telephone MARINA Guzman 6400 1.2.840.114 [id number] [place] 00:00:00 00:00:[address] [id number] Health Yesy 9.2.7.2.686 [id number] 2021-10-30 2021-10-30 Office MARINA Guzman 6400 [id number] [place] 10:40:00 11:00:[address] [id number] Health Yesy 9.2.7.2.686 [id number] 2021-10-21 2021-10-21 Telephone MARINA Gasca 6400 1.2.840.114 [id number] [place] 00:00:00 00:00:[address] [id number] Health 9.2.7.2.686 [id number] 2021-10-14 2021-10-14 Telephone MARINA Gasca 6400 1.2.840.114 [id number] [place] 00:00:00 00:00:[address] [id number] Health 9.2.7.2.686 [id number] 2021-10-09 2021-10-11 Inpatient [facility] [id number] [place] 10:10:00 22:02:00 [facility] 00 [facility] 2021-10-09 2021-10-11 Inpatient [facility] [id number] [place] 10:10:00 22:02:00 [facility] 00 [facility] 2021-10-09 2021-10-11 [facility] [id number] 05:10:00 17:02:00 Megan 00 M[place] 2021-10-09 2021-10-11 [facility] [id number] 05:10:00 17:02:00 Megan 00 Merna 2021-10-09 2021-10-09 [facility] [id number] [place] 10:30:00 10:30:00 Flagr 2021-06-26 2021-07-08 Inpatient EBONY Rosas, MARYANN REHA [id number] [facility] 14:33:00 15:00:[address] [place] [address] 2021-06-20 2021-06-26 Inpatient MILTON MarksW ADMI [id number] [facility] 06:24:00 14:53:[address] [place] [address] [facility] Results Test Description Test Time Test Comments Results Result Comments Source RADRPT 2022-06-17 19:47:15 Test Item Value Reference Range Interpretation Comme [facility] RADRPT (test code = RADRPT) PROCEDURE INFORMATION: Exam: XR Abdomen Exam date and time: 06/17/2022 10:20 AM Age: 56 years old Clinical indication: Quadriplegia, c1-c4 incomplete; Additional info: /tetraplegia, surveillance bowel and bladder TECHNIQUE: Imaging protocol: Radiologic exam of the abdomen. Views: Frontal supine view of the abdomen. 1 View. COMPARISON: OT CHEST ABDOMEN PELVIS W CONTRAST CT 10/09/2021 6:19 AM FINDINGS: Gastrointestinal tract: Gas is scattered in the small and large bowel in a nonobstructive pattern. There is a physiologic colonic stool burden. Bones/joints: Spinal fixation hardware is present from L4 through S1. Soft tissues: Unremarkable. IMPRESSION: Nonobstructive bowel gas pattern. Amaya Holley MD On 06/17/2022 13:46:27; [id number] [id number] 19:47:15 Test Item Value Reference Range Interpretation Comments RADRPT (test code = PROCEDURE INFORMATION: RADRPT) Exam: XR Abdomen Exam date and time: 06/17/2022 10:20 AM Age: 56 years old Clinical indication: Quadriplegia, c1-c4 incomplete; Additional info: /tetraplegia, surveillance bowel and bladder TECHNIQUE: Imaging protocol: Radiologic exam of the abdomen. Views: Frontal supine view of the abdomen. 1 View. COMPARISON: OT CHEST ABDOMEN PELVIS W CONTRAST CT 10/09/2021 6:19 AM FINDINGS: Gastrointestinal tract: Gas is scattered in the small and large bowel in a nonobstructive pattern. There is a physiologic colonic stool burden. Bones/joints: Spinal fixation hardware is present from L4 through S1. Soft tissues: Unremarkable. IMPRESSION: Nonobstructive bowel gas pattern. Amaya Holley MD On 06/17/2022 13:46:27; [id number] [id number] 19:47:15 Test Item Value Reference Range Interpretation Comments RADRPT (test code = PROCEDURE INFORMATION: RADRPT) Exam: XR Abdomen Exam date and time: 06/17/2022 10:20 AM Age: 56 years old Clinical indication: Quadriplegia, c1-c4 incomplete; Additional info: /tetraplegia, surveillance bowel and bladder TECHNIQUE: Imaging protocol: Radiologic exam of the abdomen. Views: Frontal supine view of the abdomen. 1 View. COMPARISON: OT CHEST ABDOMEN PELVIS W CONTRAST CT 10/09/2021 6:19 AM FINDINGS: Gastrointestinal tract: Gas is scattered in the small and large bowel in a nonobstructive pattern. There is a physiologic colonic stool burden. Bones/joints: Spinal fixation hardware is present from L4 through S1. Soft tissues: Unremarkable. IMPRESSION: Nonobstructive bowel gas pattern. Amaya Holley MD On 06/17/2022 13:46:27; [id number] [id number] 19:03:30 Test Item Value Reference Range Interpretation Comments RADRPT (test code PROCEDURE INFORMATION: = RADRPT) Exam: US Retroperitoneal; Complete; Kidneys and Bladder Exam date and time: 06/17/2022 10:56 AM Age: 56 years old Clinical indication: Quadriplegia, c1-c4 incomplete; Additional info: /tetraplegia, surveillance gu TECHNIQUE: Imaging protocol: Real-time ultrasound of the retroperitoneum with image documentation. Complete exam focused on the kidneys and bladder. COMPARISON: OT CHEST ABDOMEN PELVIS W CONTRAST CT 10/09/2021 6:19 AM FINDINGS: Right kidney: Normal echogenicity, size, and cortical thickness, measuring 10.0 x 4.7 x 4.9 cm. No stones. No hydronephrosis. Left kidney: Normal echogenicity, size, and cortical thickness, measuring 10.3 x 5.8 x 5.8 cm. No stones. No hydronephrosis. Urinary bladder: Unremarkable. The bilateral ureteral jets are noted. IMPRESSION: Unremarkable kidneys and bladder. Diana Franklin MD On 06/17/2022 13:02:17; [id number] [facility] [id number] 19:03:30 Test Item Value Reference Range Interpretation Comments RADRPT (test code PROCEDURE INFORMATION: = RADRPT) Exam: US Retroperitoneal; Complete; Kidneys and Bladder Exam date and time: 06/17/2022 10:56 AM Age: 56 years old Clinical indication: Quadriplegia, c1-c4 incomplete; Additional info: /tetraplegia, surveillance gu TECHNIQUE: Imaging protocol: Real-time ultrasound of the retroperitoneum with image documentation. Complete exam focused on the kidneys and bladder. COMPARISON: OT CHEST ABDOMEN PELVIS W CONTRAST CT 10/09/2021 6:19 AM FINDINGS: Right kidney: Normal echogenicity, size, and cortical thickness, measuring 10.0 x 4.7 x 4.9 cm. No stones. No hydronephrosis. Left kidney: Normal echogenicity, size, and cortical thickness, measuring 10.3 x 5.8 x 5.8 cm. No stones. No hydronephrosis. Urinary bladder: Unremarkable. The bilateral ureteral jets are noted. IMPRESSION: Unremarkable kidneys and bladder. Diana Franklin MD On 06/17/2022 13:02:17; [id number] [facility] [id number] 19:03:30 Test Item Value Reference Range Interpretation Comments RADRPT (test code PROCEDURE INFORMATION: = RADRPT) Exam: US Retroperitoneal; Complete; Kidneys and Bladder Exam date and time: 06/17/2022 10:56 AM Age: 56 years old Clinical indication: Quadriplegia, c1-c4 incomplete; Additional info: /tetraplegia, surveillance gu TECHNIQUE: Imaging protocol: Real-time ultrasound of the retroperitoneum with image documentation. Complete exam focused on the kidneys and bladder. COMPARISON: OT CHEST ABDOMEN PELVIS W CONTRAST CT 10/09/2021 6:19 AM FINDINGS: Right kidney: Normal echogenicity, size, and cortical thickness, measuring 10.0 x 4.7 x 4.9 cm. No stones. No hydronephrosis. Left kidney: Normal echogenicity, size, and cortical thickness, measuring 10.3 x 5.8 x 5.8 cm. No stones. No hydronephrosis. Urinary bladder: Unremarkable. The bilateral ureteral jets are noted. IMPRESSION: Unremarkable kidneys and bladder. Diana Franklin MD On 06/17/2022 13:02:17; [id number] [facility] Center[facility]IT[facility] [id number] 04:31:23 Test Item Value Reference Range Interpretation Comments VITAMIN B-12 (test >2000 PG/ML 200-950 H UNLESS OTHERWISE code = 2840) INDICATED, ALL TESTING PERFORMED [facility] [address] [place] [address] 4 LABORATORY DIRE CTOR: MAGALY GÓMEZ M.D. CLIA NUMBER [id number] [place] [id number] COMPREHENSIVE METABOLIC [id number] 03:07:00 Test Item Value Reference Range Interpretation Comments GLUCOSE (test code = 81 MG/DL 70-99 2216) BUN (test code = 11 MG/DL 6-20 2207) CREATININE (test 0.98 MG/DL 0.80-1.40 code = 2214) eGFR (2020 CKD-EPI) 91 ML/MIN/1.73 >60 (test code = 72091) CALC BUN/CREAT (test 11 RATIO 6-28 code = 2235) SODIUM (test code = 140 MEQ/L 583-525 8654) POTASSIUM (test code 3.6 MEQ/L 3.5-5.4 = 2227) CHLORIDE (test code 100 MEQ/L 95-107 = 2214) CARBON DIOXIDE (test 27 MEQ/L 19-31 code = 2206) CALCIUM (test code = 9.8 MG/DL 8.5-10.5 2208) PROTEIN, TOTAL (test 7.0 G/DL 6.1-8.3 code = 222) ALBUMIN (test code = 4.4 G/DL 3.5-5.2 2200) CALC GLOBULIN (test 2.6 G/DL 1.9-3.7 code = 2240) CALC A/G RATIO (test 1.7 RATIO 1.0-2.6 code = 2234) BILIRUBIN, TOTAL 0.4 MG/DL See_Comment [Automated message] (test code = 2207) The syste m which generated this result transmit shukri reference range : <=1.2. The refe rence range was not u sed to interpret th is result as normal/abnormal . ALKALINE PHOSPHATASE 105 U/L 40-123 (test code = 2204) AST (test code = 16 U/L 9-50 2217) ALT (test code = 13 U/L 5-50 2218) VITAMIN [id number] 00:00:00 Test Item Value Reference Range Interpretation Comments VITAMIN B-12 (test code = 2840) >2000 PG/ML COMPREHENSIVE METABOLIC [id number] 00:00:00 Test Item Value Reference Range Interpretation Comments GLUCOSE (test code = 2217) 81 MG/DL BUN (test code = 2208) 11 MG/DL CREATININE (test code = 2214) 0.98 MG/DL eGFR (2020 CKD-EPI) (test code 91 ML/MIN/1.73 = 70142) CALC BUN/CREAT (test code = 11 RATIO 2235) SODIUM (test code = 2231) 140 MEQ/L POTASSIUM (test code = 2228) 3.6 MEQ/L CHLORIDE (test code = 2215) 100 MEQ/L CARBON DIOXIDE (test code = 27 MEQ/L 220) CALCIUM (test code = 2209) 9.8 MG/DL PROTEIN, TOTAL (test code = 7.0 G/DL 2228) ALBUMIN (test code = 2201) 4.4 G/DL CALC GLOBULIN (test code = 2.6 G/DL 2240) CALC A/G RATIO (test code = 1.7 RATIO 2234) BILIRUBIN, TOTAL (test code = 0.4 MG/DL 2206) ALKALINE PHOSPHATASE (test 105 U/L code = 2204) AST (test code = 2218) 16 U/L ALT (test code = 2219) 13 U/L COMPREHENSIVE METABOLIC [id number] 00:00:00 Test Item Value Reference Range Interpretation Comments GLUCOSE (test code = 2217) 81 MG/DL BUN (test code = 2208) 11 MG/DL CREATININE (test code = 2214) 0.98 MG/DL eGFR (2020 CKD-EPI) (test code 91 ML/MIN/1.73 = 95897) CALC BUN/CREAT (test code = 11 RATIO 2235) SODIUM (test code = 2231) 140 MEQ/L POTASSIUM (test code = 2228) 3.6 MEQ/L CHLORIDE (test code = 2215) 100 MEQ/L CARBON DIOXIDE (test code = 27 MEQ/L 220) CALCIUM (test code = 2209) 9.8 MG/DL PROTEIN, TOTAL (test code = 7.0 G/DL 2228) ALBUMIN (test code = 2201) 4.4 G/DL CALC GLOBULIN (test code = 2.6 G/DL 2240) CALC A/G RATIO (test code = 1.7 RATIO 2234) BILIRUBIN, TOTAL (test code = 0.4 MG/DL 2206) ALKALINE PHOSPHATASE (test 105 U/L code = 2204) AST (test code = 2218) 16 U/L ALT (test code = 2219) 13 U/L VITAMIN [id number] 00:00:00 Test Item Value Reference Range Interpretation Comments VITAMIN B-12 (test code = 2840) >2000 PG/ML VITAMIN [id number] 00:00:00 Test Item Value Reference Range Interpretation Comments VITAMIN B-12 (test code = 2840) >2000 PG/ML VITAMIN [id number] 00:00:00 Test Item Value Reference Range Interpretation Comments VITAMIN B-12 (test code = 2840) >2000 PG/ML COMPREHENSIVE METABOLIC [id number] 00:00:00 Test Item Value Reference Range Interpretation Comments GLUCOSE (test code = 2217) 81 MG/DL BUN (test code = 2208) 11 MG/DL CREATININE (test code = 2214) 0.98 MG/DL eGFR (2020 CKD-EPI) (test code 91 ML/MIN/1.73 = 55166) CALC BUN/CREAT (test code = 11 RATIO 2235) SODIUM (test code = 2231) 140 MEQ/L POTASSIUM (test code = 2228) 3.6 MEQ/L CHLORIDE (test code = 2215) 100 MEQ/L CARBON DIOXIDE (test code = 27 MEQ/L 220) CALCIUM (test code = 2209) 9.8 MG/DL PROTEIN, TOTAL (test code = 7.0 G/DL 222) ALBUMIN (test code = 2201) 4.4 G/DL CALC GLOBULIN (test code = 2.6 G/DL 2240) CALC A/G RATIO (test code = 1.7 RATIO 2234) BILIRUBIN, TOTAL (test code = 0.4 MG/DL 220) ALKALINE PHOSPHATASE (test 105 U/L code = 2204) AST (test code = 2218) 16 U/L ALT (test code = 2219) 13 U/L COMPREHENSIVE METABOLIC [id number] 00:00:00 Test Item Value Reference Range Interpretation Comments GLUCOSE (test code = 2217) 81 MG/DL BUN (test code = 2208) 11 MG/DL CREATININE (test code = 2214) 0.98 MG/DL eGFR (2020 CKD-EPI) (test code 91 ML/MIN/1.73 = 36329) CALC BUN/CREAT (test code = 11 RATIO 5) SODIUM (test code = 2231) 140 MEQ/L POTASSIUM (test code = 2228) 3.6 MEQ/L CHLORIDE (test code = 2215) 100 MEQ/L CARBON DIOXIDE (test code = 27 MEQ/L 2205) CALCIUM (test code = 2209) 9.8 MG/DL PROTEIN, TOTAL (test code = 7.0 G/DL 2228) ALBUMIN (test code = 220) 4.4 G/DL CALC GLOBULIN (test code = 2.6 G/DL 2239) CALC A/G RATIO (test code = 1.7 RATIO 2233) BILIRUBIN, TOTAL (test code = 0.4 MG/DL 2206) ALKALINE PHOSPHATASE (test 105 U/L code = 220) AST (test code = 2218) 16 U/L ALT (test code = 2219) 13 U/L VITAMIN [id number] 00:00:00 Test Item Value Reference Range Interpretation Comments VITAMIN B-12 (test code = 2840) >2000 PG/ML VITAMIN [id number] 00:00:00 Test Item Value Reference Range Interpretation Comments VITAMIN B-12 (test code = 2840) >2000 PG/ML CHEM [id number] 06:44:00 Test Item Value Reference Range Interpretation Comments Glucose Lvl (test code = Glucose Lvl) 121 70-99 [facility] [employer] [id number] 06:44:00 Test Item Value Reference Range Interpretation Comments BUN (test code = BUN) 18 7-22 [facility] [employer] [id number] 06:44:00 Test Item Value Reference Range Interpretation Comments Creatinine Lvl (test code = Creatinine 0.81 0.50-1.40 Lvl) [facility] [employer] [id number] 06:44:00 Test Item Value Reference Range Interpretation Comments Sodium Lvl (test code = Sodium Lvl) 139 135-145 [facility] [employer] [id number] 06:44:00 Test Item Value Reference Range Interpretation Comments Potassium Lvl (test code = Potassium 3.6 3.5-5.1 Lvl) [facility] [employer] [id number] 06:44:00 Test Item Value Reference Range Interpretation Comments Chloride Lvl (test code = Chloride Lvl) 106 95-109 [place] [id number] 06:44:00 Test Item Value Reference Range Interpretation Comments CO2 (test code = CO2) 26 24-32 [place] [id number] 06:44:00 Test Item Value Reference Range Interpretation Comments AGAP (test code = AGAP) 10.6 10.0-20.0 [place] [id number] 06:44:00 Test Item Value Reference Range Interpretation Comments Calcium Lvl (test code = Calcium Lvl) 8.4 8.5-10.5 [place] [id number] 06:44:00 Test Item Value Reference Range Interpretation Comments eGFR (test code = eGFR) 100 [place] [id number] 06:44:00 Test Item Value Reference Range Interpretation Comments Lactic Acid Lvl (test code = Lactic 1.7 0.5-2.2 Acid Lvl) [place] [id number] 06:44:00 Test Item Value Reference Range Interpretation Comments Segs (test code = Segs) 54.2 45.0-75.0 [place] 56269-06-12 06:44:00 Test Item Value Reference Range Interpretation Comments Lymphocytes (test code = Lymphocytes) 36.8 20.0-40.0 [place] 56269-06-12 06:44:00 Test Item Value Reference Range Interpretation Comments Monocytes (test code = Monocytes) 3.9 2.0-12.0 [place] 56269-06-12 06:44:00 Test Item Value Reference Range Interpretation Comments Eosinophils (test code = 4.8 See_Comment [A utomated message] The Eosinophils) system which nerated this result tra nsmitted reference range : <=4.0. The reference r yi was not used to int erpret this result as normal/abnormal . [place] [id number] 06:44:00 Test Item Value Reference Range Interpretation Comments Basophils (test code = 0.3 See_Comment [Aut omated message] The Basophils) system which ge nerated this result tra nsmitted reference range : <=1.0. The reference r yi was not used to int erpret this result as normal/abnormal . [place]382-06-12 06:44:00 Test Item Value Reference Range Interpretation Comments Neutrophils # (test code = Neutrophils 2.2 1.5-8.1 #) [place] 494382-06-12 06:44:00 Test Item Value Reference Range Interpretation Comments Lymphocytes # (test code = Lymphocytes 1.5 1.0-5.5 #) [place] 494382-06-12 06:44:00 Test Item Value Reference Range Interpretation Comments Monocytes # (test code 0.2 See_Comment [Aut omated message] The = Monocytes #) system which generated this result tra nsmitted reference range : <=0.8. The reference r yi was not used to int erpret this result as normal/abnormal . [place] 494382-06-12 06:44:00 Test Item Value Reference Range Interpretation Comments Eosinophils # (test code 0.2 See_Comment [A utomated message] The = Eosinophils #) system whic h generated this result tra nsmitted reference range : <=0.5. The reference r yi was not used to int erpret this result as normal/abnormal . [facility]KL[facility]29[facility]:00 Test Item Value Reference Range Interpretation Comments Macrocyte (test code = 3+ *NA*(11/09/21 1:44 Macrocyte) AM) [place] 494382-06-12 06:44:00 Test Item Value Reference Range Interpretation Comments WBC (test code = WBC) 4.0 3.7-10.4 [place] 494382-06-12 06:44:00 Test Item Value Reference Range Interpretation Comments RBC (test code = RBC) 2.24 4.70-6.10 [place] [address]-06-12 06:44:00 Test Item Value Reference Range Interpretation Comments Hgb (test code = Hgb) 9.1 14.0-18.0 [place] [address]-06-12 06:44:00 Test Item Value Reference Range Interpretation Comments Hct (test code = Hct) 25.7 42.0-54.0 [place] [address]-06-12 06:44:00 Test Item Value Reference Range Interpretation Comments MCV (test code = MCV) 114.6 80.0-94.0 [place] [address]-06-12 06:44:00 Test Item Value Reference Range Interpretation Comments MCH (test code = MCH) 40.6 pg 27.0-31.0 [facility]PqzdljbMHULNRXYON8556-05-45 06:44:00 Test Item Value Reference Range Interpretation Comments MCHC (test code = MCHC) 35.4 32.0-36.0 [facility]AllenEhyenrwOZHHIQMWFW7757-83-50 06:44:00 Test Item Value Reference Range Interpretation Comments RDW (test code = RDW) 19.5 11.5-14.5 [facility]AllenMdyculrDOSYNNEMNK3244-69-44 06:44:00 Test Item Value Reference Range Interpretation Comments Platelet (test code = Platelet) 228 133-450 [facility]AllenKjtqbrkDDZLEONBNT4077-55-56 06:44:00 Test Item Value Reference Range Interpretation Comments MPV (test code = MPV) 8.7 7.4-10.4 [facility] AND [id number] 06:44:00 Test Item Value Reference Range Interpretation Comments UA Color (test code = Dark Yellow UA Color) *NA*(11/09/21 1:44 AM) [facility] AND [id number] 06:44:00 Test Item Value Reference Range Interpretation Comments UA Turbidity (test code = Clear (11/09/21 1:44 UA Turbidity) AM) [facility] AND [id number] 06:44:00 Test Item Value Reference Range Interpretation Comments UA Spec Grav (test code = UA Spec 1.021 1 Grav) [facility] AND [id number] 06:44:00 Test Item Value Reference Range Interpretation Comments UA pH (test code = UA pH) 5.0 1 5.0-8.0 [facility] AND [id number] 06:44:00 Test Item Value Reference Range Interpretation Comments UA Protein (test code = UA Negative mg/dL Protein) [facility] AND [id number] 06:44:00 Test Item Value Reference Range Interpretation Comments UA Glucose (test code = UA Negative mg/dL Glucose) [facility] AND [id number] 06:44:00 Test Item Value Reference Range Interpretation Comments UA Ketones (test code = UA Trace mg/dL Ketones) [facility] AND [id number] 06:44:00 Test Item Value Reference Range Interpretation Comments UA Bili (test code = Small *ABN*(11/09/21 UA Bili) 1:44 AM) [facility] AND [id number] 06:44:00 Test Item Value Reference Range Interpretation Comments UA Blood (test code = Negative (11/09/21 1:44 UA Blood) AM) [facility] AND [id number] 06:44:00 Test Item Value Reference Range Interpretation Comments UA Urobilinogen (test code = UA 2.0 0.1-1.0 Urobilinogen) [facility] AND [id number] 06:44:00 Test Item Value Reference Range Interpretation Comments UA Nitrite (test code Negative (11/09/21 1:44 = UA Nitrite) AM) [facility] AND [id number] 06:44:00 Test Item Value Reference Range Interpretation Comments UA Leuk Est (test Negative (11/09/21 1:44 code = UA Leuk Est) AM) [facility] AND [id number] 06:44:00 Test Item Value Reference Range Interpretation Comments UA WBC (test code = no gt See_Comment [Automa shukri message] The UA WBC) system which ge nerated this result transmit shukri reference range : <=5. The reference range was not used to interpr et this result as aurora l/abnormal. [facility] AND [id number] 06:44:00 Test Item Value Reference Range Interpretation Comments UA Mucus (test code = UA Mucus) Few /LPF [facility] AND [id number] 06:44:00 Test Item Value Reference Range Interpretation Comments UA Sq Epi (test code = UA Sq Epi) None Seen [facility]2022-06-12 06:44:00 Test Item Value Reference Range Interpretation Comments Glucose Lvl (test code = Glucose Lvl) 121 70-99 [facility]2022-06-12 06:44:00 Test Item Value Reference Range Interpretation Comments BUN (test code = BUN) 18 7-22 [facility]2022-06-12 06:44:00 Test Item Value Reference Range Interpretation Comments Creatinine Lvl (test code = Creatinine 0.81 0.50-1.40 Lvl) [facility]2022-06-12 06:44:00 Test Item Value Reference Range Interpretation Comments Sodium Lvl (test code = Sodium Lvl) 139 135-145 [place] 665472-06-12 06:44:00 Test Item Value Reference Range Interpretation Comments Potassium Lvl (test code = Potassium 3.6 3.5-5.1 Lvl) [place] 665472-06-12 06:44:00 Test Item Value Reference Range Interpretation Comments Chloride Lvl (test code = Chloride Lvl) 106 95-109 [place] 665472-06-12 06:44:00 Test Item Value Reference Range Interpretation Comments CO2 (test code = CO2) 26 24-32 [place] 665472-06-12 06:44:00 Test Item Value Reference Range Interpretation Comments AGAP (test code = AGAP) 10.6 10.0-20.0 [place] 665472-06-12 06:44:00 Test Item Value Reference Range Interpretation Comments Calcium Lvl (test code = Calcium Lvl) 8.4 8.5-10.5 [place] 665472-06-12 06:44:00 Test Item Value Reference Range Interpretation Comments eGFR (test code = eGFR) 100 [place] 665472-06-12 06:44:00 Test Item Value Reference Range Interpretation Comments Lactic Acid Lvl (test code = Lactic 1.7 0.5-2.2 Acid Lvl) [place] 494382-06-12 06:44:00 Test Item Value Reference Range Interpretation Comments Segs (test code = Segs) 54.2 45.0-75.0 [place] 494382-06-12 06:44:00 Test Item Value Reference Range Interpretation Comments Lymphocytes (test code = Lymphocytes) 36.8 20.0-40.0 [place] [address]-06-12 06:44:00 Test Item Value Reference Range Interpretation Comments Monocytes (test code = Monocytes) 3.9 2.0-12.0 [place] [address]-06-12 06:44:00 Test Item Value Reference Range Interpretation Comments Eosinophils (test code = 4.8 See_Comment [A utomated message] The Eosinophils) system which ge nerated this result tra nsmitted reference range : <=4.0. The reference r yi was not used to int erpret this result as normal/abnormal . [place] 494382-06-12 06:44:00 Test Item Value Reference Range Interpretation Comments Basophils (test code = 0.3 See_Comment [Aut omated message] The Basophils) system which ge nerated this result tra nsmitted reference range : <=1.0. The reference r yi was not used to int erpret this result as normal/abnormal . [facility]AllenQgjbgpyWVIMNDGZLA8969-19-24 06:44:00 Test Item Value Reference Range Interpretation Comments Neutrophils # (test code = Neutrophils 2.2 1.5-8.1 #) [facility]AllenFzernwhVWGGTVCTJC0250-81-76 06:44:00 Test Item Value Reference Range Interpretation Comments Lymphocytes # (test code = Lymphocytes 1.5 1.0-5.5 #) [facility] McAllenZubcnohNAWMOHBSHT5069-18-14 06:44:00 Test Item Value Reference Range Interpretation Comments Monocytes # (test code 0.2 See_Comment [Aut omated message] The = Monocytes #) system which generated this result tra nsmitted reference range : <=0.8. The reference r yi was not used to int erpret this result as normal/abnormal . [facility]AllenAeubbwhKXSKHSKTNQ5995-91-30 06:44:00 Test Item Value Reference Range Interpretation Comments Eosinophils # (test code 0.2 See_Comment [A utomated message] The = Eosinophils #) system whic h generated this result tra nsmitted reference range : <=0.5. The reference r yi was not used to int erpret this result as normal/abnormal . [facility] McAllenSmqcmhrEIURIDSSKJ7748-59-01 06:44:00 Test Item Value Reference Range Interpretation Comments Macrocyte (test code = 3+ *NA*(11/09/21 1:44 Macrocyte) AM) [place] 494382-06-12 06:44:00 Test Item Value Reference Range Interpretation Comments WBC (test code = WBC) 4.0 3.7-10.4 [place] [address]-06-12 06:44:00 Test Item Value Reference Range Interpretation Comments RBC (test code = RBC) 2.24 4.70-6.10 [place] 494382-06-12 06:44:00 Test Item Value Reference Range Interpretation Comments Hgb (test code = Hgb) 9.1 14.0-18.0 [facility]All[id number] 06:44:00 Test Item Value Reference Range Interpretation Comments Hct (test code = Hct) 25.7 42.0-54.0 [facility]AllenPehsmsvFJTPIEFWNX4046-86-07 06:44:00 Test Item Value Reference Range Interpretation Comments MCV (test code = MCV) 114.6 80.0-94.0 [facility] McAllenNjwclbmNOWBGIZPKG4993-81-12 06:44:00 Test Item Value Reference Range Interpretation Comments MCH (test code = MCH) 40.6 pg 27.0-31.0 [facility] McAllenBgqyzqlOCICXSLQXK3895-74-30 06:44:00 Test Item Value Reference Range Interpretation Comments MCHC (test code = MCHC) 35.4 32.0-36.0 [facility]AllenCgvijyxYXSZQYMAJV3021-62-19 06:44:00 Test Item Value Reference Range Interpretation Comments RDW (test code = RDW) 19.5 11.5-14.5 [facility]AllenCywvrfqDUGHZFMHSW5371-26-71 06:44:00 Test Item Value Reference Range Interpretation Comments Platelet (test code = Platelet) 228 133-450 [facility] McAllenKvvajjnLDJBDDFDLJ3129-64-27 06:44:00 Test Item Value Reference Range Interpretation Comments MPV (test code = MPV) 8.7 7.4-10.4 [facility] AND [id number] 06:44:00 Test Item Value Reference Range Interpretation Comments UA Color (test code = Dark Yellow UA Color) *NA*(11/09/21 1:44 AM) [facility] AND [id number] 06:44:00 Test Item Value Reference Range Interpretation Comments UA Turbidity (test code = Clear (11/09/21 1:44 UA Turbidity) AM) [facility] AND [id number] 06:44:00 Test Item Value Reference Range Interpretation Comments UA Spec Grav (test code = UA Spec 1.021 1 Grav) [facility] AND [id number] 06:44:00 Test Item Value Reference Range Interpretation Comments UA pH (test code = UA pH) 5.0 1 5.0-8.0 [facility] AND [id number] 06:44:00 Test Item Value Reference Range Interpretation Comments UA Protein (test code = UA Negative mg/dL Protein) [facility] AND [id number] 06:44:00 Test Item Value Reference Range Interpretation Comments UA Glucose (test code = UA Negative mg/dL Glucose) [facility] [id number] 06:44:00 Test Item Value Reference Range Interpretation Comments UA Ketones (test code = UA Trace mg/dL Ketones) [facility] [id number] 06:44:00 Test Item Value Reference Range Interpretation Comments UA Bili (test code = Small *ABN*(11/09/21 UA Bili) 1:44 AM) [facility] [id number] 06:44:00 Test Item Value Reference Range Interpretation Comments UA Blood (test code = Negative (11/09/21 1:44 UA Blood) AM) [facility] [id number] 06:44:00 Test Item Value Reference Range Interpretation Comments UA Urobilinogen (test code = UA 2.0 0.1-1.0 Urobilinogen) [facility] AND [id number] 06:44:00 Test Item Value Reference Range Interpretation Comments UA Nitrite (test code Negative (11/09/21 1:44 = UA Nitrite) AM) [facility] [id number] 06:44:00 Test Item Value Reference Range Interpretation Comments UA Leuk Est (test Negative (11/09/21 1:44 code = UA Leuk Est) AM) [facility] [id number] 06:44:00 Test Item Value Reference Range Interpretation Comments UA WBC (test code = no gt See_Comment [Automa shukri message] The UA WBC) system which ge nerated this result transmit shukri reference range : <=5. The reference range was not used to interpr et this result as aurora l/abnormal. [facility] [id number] 06:44:00 Test Item Value Reference Range Interpretation Comments UA Mucus (test code = UA Mucus) Few /LPF [facility] [id number] 06:44:00 Test Item Value Reference Range Interpretation Comments UA Sq Epi (test code = UA Sq Epi) None [facility] [id number] 06:44:00 Test Item Value Reference Range Interpretation Comments Glucose Lvl (test code = Glucose Lvl) 121 70-99 [place] 665472-06-12 06:44:00 Test Item Value Reference Range Interpretation Comments BUN (test code = BUN) 18 7-22 [place] 665472-06-12 06:44:00 Test Item Value Reference Range Interpretation Comments Creatinine Lvl (test code = Creatinine 0.81 0.50-1.40 Lvl) [place] 665472-06-12 06:44:00 Test Item Value Reference Range Interpretation Comments Sodium Lvl (test code = Sodium Lvl) 139 135-145 [place] 665472-06-12 06:44:00 Test Item Value Reference Range Interpretation Comments Potassium Lvl (test code = Potassium 3.6 3.5-5.1 Lvl) [place] 665472-06-12 06:44:00 Test Item Value Reference Range Interpretation Comments Chloride Lvl (test code = Chloride Lvl) 106 95-109 [place] 665472-06-12 06:44:00 Test Item Value Reference Range Interpretation Comments CO2 (test code = CO2) 26 24-32 [place] 665472-06-12 06:44:00 Test Item Value Reference Range Interpretation Comments AGAP (test code = AGAP) 10.6 10.0-20.0 [place] 665472-06-12 06:44:00 Test Item Value Reference Range Interpretation Comments Calcium Lvl (test code = Calcium Lvl) 8.4 8.5-10.5 [place] 665472-06-12 06:44:00 Test Item Value Reference Range Interpretation Comments eGFR (test code = eGFR) 100 [place] 665472-06-12 06:44:00 Test Item Value Reference Range Interpretation Comments Lactic Acid Lvl (test code = Lactic 1.7 0.5-2.2 Acid Lvl) [place] 494382-06-12 06:44:00 Test Item Value Reference Range Interpretation Comments Segs (test code = Segs) 54.2 45.0-75.0 [place] [address]-06-12 06:44:00 Test Item Value Reference Range Interpretation Comments Lymphocytes (test code = Lymphocytes) 36.8 20.0-40.0 [place] [address]-06-12 06:44:00 Test Item Value Reference Range Interpretation Comments Monocytes (test code = Monocytes) 3.9 2.0-12.0 [place] 494382-06-12 06:44:00 Test Item Value Reference Range Interpretation Comments Eosinophils (test code = 4.8 See_Comment [A utomated message] The Eosinophils) system which ge nerated this result tra nsmitted reference range : <=4.0. The reference r yi was not used to int erpret this result as normal/abnormal . [place] 494382-06-12 06:44:00 Test Item Value Reference Range Interpretation Comments Basophils (test code = 0.3 See_Comment [Aut omated message] The Basophils) system which ge nerated this result tra nsmitted reference range : <=1.0. The reference r yi was not used to int erpret this result as normal/abnormal . [place] 494382-06-12 06:44:00 Test Item Value Reference Range Interpretation Comments Neutrophils # (test code = Neutrophils 2.2 1.5-8.1 #) [place] 494382-06-12 06:44:00 Test Item Value Reference Range Interpretation Comments Lymphocytes # (test code = Lymphocytes 1.5 1.0-5.5 #) [facility]AllenGaiibmvYIEGXPEYTR9116-61-72 06:44:00 Test Item Value Reference Range Interpretation Comments Monocytes # (test code 0.2 See_Comment [Aut omated message] The = Monocytes #) system which generated this result tra nsmitted reference range : <=0.8. The reference r yi was not used to int erpret this result as normal/abnormal . [place] 494382-06-12 06:44:00 Test Item Value Reference Range Interpretation Comments Eosinophils # (test code 0.2 See_Comment [A utomated message] The = Eosinophils #) system whic h generated this result tra nsmitted reference range : <=0.5. The reference r yi was not used to int erpret this result as normal/abnormal . [facility] McAllenZvtpbwcUZPOKQSECV4487-89-37 06:44:00 Test Item Value Reference Range Interpretation Comments Macrocyte (test code = 3+ *NA*(11/09/21 1:44 Macrocyte) AM) [place] 494382-06-12 06:44:00 Test Item Value Reference Range Interpretation Comments WBC (test code = WBC) 4.0 3.7-10.4 [facility]AllenWlfffziZTCWDFUUIZ9549-49-79 06:44:00 Test Item Value Reference Range Interpretation Comments RBC (test code = RBC) 2.24 4.70-6.10 [facility] McAllenIegknizZYRICTMZGQ1869-93-28 06:44:00 Test Item Value Reference Range Interpretation Comments Hgb (test code = Hgb) 9.1 14.0-18.0 [facility] McAllenIwndvvbSVKWXMFYBN3352-39-02 06:44:00 Test Item Value Reference Range Interpretation Comments Hct (test code = Hct) 25.7 42.0-54.0 [facility]AllenErexefeMDDKUBQKHK5619-33-02 06:44:00 Test Item Value Reference Range Interpretation Comments MCV (test code = MCV) 114.6 80.0-94.0 [facility] McAllenEnvtijwQIVXIZAAUA4292-85-06 06:44:00 Test Item Value Reference Range Interpretation Comments MCH (test code = MCH) 40.6 pg 27.0-31.0 [facility] McAllenDtzbeewQJLUGABWWB5145-14-62 06:44:00 Test Item Value Reference Range Interpretation Comments MCHC (test code = MCHC) 35.4 32.0-36.0 [facility] McAllenTnbpiutSSSWEYCQDL7214-54-93 06:44:00 Test Item Value Reference Range Interpretation Comments RDW (test code = RDW) 19.5 11.5-14.5 [facility] McAllenVunrlloTVWPRXKASK6786-85-47 06:44:00 Test Item Value Reference Range Interpretation Comments Platelet (test code = Platelet) 228 133-450 [facility] McAllenPdsktamVZSPMEYDPV1757-75-45 06:44:00 Test Item Value Reference Range Interpretation Comments MPV (test code = MPV) 8.7 7.4-10.4 [facility] AND [id number] 06:44:00 Test Item Value Reference Range Interpretation Comments UA Color (test code = Dark Yellow UA Color) *NA*(11/09/21 1:44 AM) [facility] AND [id number] 06:44:00 Test Item Value Reference Range Interpretation Comments UA Turbidity (test code = Clear (11/09/21 1:44 UA Turbidity) AM) [facility] AND [id number] 06:44:00 Test Item Value Reference Range Interpretation Comments UA Spec Grav (test code = UA Spec 1.021 1 Grav) [facility] AND [id number] 06:44:00 Test Item Value Reference Range Interpretation Comments UA pH (test code = UA pH) 5.0 1 5.0-8.0 [facility] AND [id number] 06:44:00 Test Item Value Reference Range Interpretation Comments UA Protein (test code = UA Negative mg/dL Protein) [facility] AND [id number] 06:44:00 Test Item Value Reference Range Interpretation Comments UA Glucose (test code = UA Negative mg/dL Glucose) [facility] AND [id number] 06:44:00 Test Item Value Reference Range Interpretation Comments UA Ketones (test code = UA Trace mg/dL Ketones) [facility] AND [id number] 06:44:00 Test Item Value Reference Range Interpretation Comments UA Bili (test code = Small *ABN*(11/09/21 UA Bili) 1:44 AM) [facility] AND [id number] 06:44:00 Test Item Value Reference Range Interpretation Comments UA Blood (test code = Negative (11/09/21 1:44 UA Blood) AM) [facility] AND [id number] 06:44:00 Test Item Value Reference Range Interpretation Comments UA Urobilinogen (test code = UA 2.0 0.1-1.0 Urobilinogen) [facility] AND [id number] 06:44:00 Test Item Value Reference Range Interpretation Comments UA Nitrite (test code Negative (11/09/21 1:44 = UA Nitrite) AM) [facility] AND [id number] 06:44:00 Test Item Value Reference Range Interpretation Comments UA Leuk Est (test Negative (11/09/21 1:44 code = UA Leuk Est) AM) [facility] AND [id number] 06:44:00 Test Item Value Reference Range Interpretation Comments UA WBC (test code = no gt See_Comment [Automa shukri message] The UA WBC) system which ge nerated this result transmit shukri reference range : <=5. The reference range was not used to interpr et this result as aurora l/abnormal. [facility] AND [id number] 06:44:00 Test Item Value Reference Range Interpretation Comments UA Mucus (test code = UA Mucus) Few /LPF [facility] AND [id number] 06:44:00 Test Item Value Reference Range Interpretation Comments UA Sq Epi (test code = UA Sq Epi) None Seen [place] 665472-06-11 09:55:00 Test Item Value Reference Range Interpretation Comments Glucose Lvl (test code = Glucose Lvl) 91 70-99 [place] 665472-06-11 09:55:00 Test Item Value Reference Range Interpretation Comments BUN (test code = BUN) 18 7-22 [place] 665472-06-11 09:55:00 Test Item Value Reference Range Interpretation Comments Creatinine Lvl (test code = Creatinine 0.78 0.50-1.40 Lvl) [place] 665472-06-11 09:55:00 Test Item Value Reference Range Interpretation Comments Sodium Lvl (test code = Sodium Lvl) 137 135-145 [place] 665472-06-11 09:55:00 Test Item Value Reference Range Interpretation Comments Potassium Lvl (test code = Potassium 3.5 3.5-5.1 Lvl) [place] 665472-06-11 09:55:00 Test Item Value Reference Range Interpretation Comments Chloride Lvl (test code = Chloride Lvl) 104 95-109 [place] 665472-06-11 09:55:00 Test Item Value Reference Range Interpretation Comments CO2 (test code = CO2) 26 24-32 [place] 665472-06-11 09:55:00 Test Item Value Reference Range Interpretation Comments Calcium Lvl (test code = Calcium Lvl) 8.7 8.5-10.5 [place] 665472-06-11 09:55:00 Test Item Value Reference Range Interpretation Comments AGAP (test code = AGAP) 10.5 10.0-20.0 [place] 665472-06-11 09:55:00 Test Item Value Reference Range Interpretation Comments eGFR (test code = eGFR) 101 [place] 665472-06-11 09:55:00 Test Item Value Reference Range Interpretation Comments Magnesium Lvl (test code = Magnesium 2.5 1.8-2.4 Lvl) [place] 665472-06-11 09:55:00 Test Item Value Reference Range Interpretation Comments Phosphorus (test code = Phosphorus) 3.9 2.5-4.5 [place] [address]-06-11 09:55:00 Test Item Value Reference Range Interpretation Comments Segs (test code = Segs) 60.2 45.0-75.0 [place] [address]-06-11 09:55:00 Test Item Value Reference Range Interpretation Comments Lymphocytes (test code = Lymphocytes) 29.2 20.0-40.0 [place] [address]-06-11 09:55:00 Test Item Value Reference Range Interpretation Comments Monocytes (test code = Monocytes) 5.7 2.0-12.0 [place] [address]-06-11 09:55:00 Test Item Value Reference Range Interpretation Comments Eosinophils (test code = 4.7 See_Comment [A utomated message] The Eosinophils) system which ge nerated this result tra nsmitted reference range : <=4.0. The reference r yi was not used to int erpret this result as normal/abnormal . [place] [address]-06-11 09:55:00 Test Item Value Reference Range Interpretation Comments Basophils (test code = 0.2 See_Comment [Aut omated message] The Basophils) system which ge nerated this result tra nsmitted reference range : <=1.0. The reference r yi was not used to int erpret this result as normal/abnormal . [place] [address]-06-11 09:55:00 Test Item Value Reference Range Interpretation Comments Neutrophils # (test code = Neutrophils 2.8 1.5-8.1 #) [place] [address]-06-11 09:55:00 Test Item Value Reference Range Interpretation Comments Lymphocytes # (test code = Lymphocytes 1.4 1.0-5.5 #) [place] [address]-06-11 09:55:00 Test Item Value Reference Range Interpretation Comments Monocytes # (test code 0.3 See_Comment [Aut omated message] The = Monocytes #) system which generated this result tra nsmitted reference range : <=0.8. The reference r yi was not used to int erpret this result as normal/abnormal . [place] [address]-06-11 09:55:00 Test Item Value Reference Range Interpretation Comments Eosinophils # (test code 0.2 See_Comment [A utomated message] The = Eosinophils #) system whic h generated this result tra nsmitted reference range : <=0.5. The reference r yi was not used to int erpret this result as normal/abnormal . [facility]cj[facility]htSABPKBNKSN2522[facility]37 09:55:00 Test Item Value Reference Range Interpretation Comments Macrocyte (test code = 3+ *NA*(11/08/21 4:55 Macrocyte) AM) [facility]AllenWxfonjjVIOVGNEEVE9322-11-19 09:55:00 Test Item Value Reference Range Interpretation Comments WBC (test code = WBC) 4.7 3.7-10.4 [facility]AllenBtllpyiEKOAPGONGQ9924-48-12 09:55:00 Test Item Value Reference Range Interpretation Comments RBC (test code = RBC) 2.17 4.70-6.10 [facility]AllenUxncaxyAHWWVJVFUQ8697-48-13 09:55:00 Test Item Value Reference Range Interpretation Comments Hgb (test code = Hgb) 9.0 14.0-18.0 [place] 494382-06-11 09:55:00 Test Item Value Reference Range Interpretation Comments Hct (test code = Hct) 24.8 42.0-54.0 [facility]AllenNyuyercHLXAOLWKDS1516-69-21 09:55:00 Test Item Value Reference Range Interpretation Comments MCV (test code = MCV) 114.5 80.0-94.0 [facility]AllenPrziezoSXTHMUTQWU2587-79-12 09:55:00 Test Item Value Reference Range Interpretation Comments MCH (test code = MCH) 41.6 pg 27.0-31.0 [facility] McAllenFwbujznRCRDPCAQBD2357-71-56 09:55:00 Test Item Value Reference Range Interpretation Comments MCHC (test code = MCHC) 36.3 32.0-36.0 [place] 494382-06-11 09:55:00 Test Item Value Reference Range Interpretation Comments RDW (test code = RDW) 19.3 11.5-14.5 [place] 494382-06-11 09:55:00 Test Item Value Reference Range Interpretation Comments Platelet (test code = Platelet) 227 133-450 [facility] McAllenPoyhvroYYZKTYBGIP3346-85-57 09:55:00 Test Item Value Reference Range Interpretation Comments MPV (test code = MPV) 8.4 7.4-10.4 [place] 665472-06-11 09:55:00 Test Item Value Reference Range Interpretation Comments Glucose Lvl (test code = Glucose Lvl) 91 70-99 [place] 665472-06-11 09:55:00 Test Item Value Reference Range Interpretation Comments BUN (test code = BUN) 18 7-22 [place] 665472-06-11 09:55:00 Test Item Value Reference Range Interpretation Comments Creatinine Lvl (test code = Creatinine 0.78 0.50-1.40 Lvl) [place] 665472-06-11 09:55:00 Test Item Value Reference Range Interpretation Comments Sodium Lvl (test code = Sodium Lvl) 137 135-145 [place] 665472-06-11 09:55:00 Test Item Value Reference Range Interpretation Comments Potassium Lvl (test code = Potassium 3.5 3.5-5.1 Lvl) [place] 665472-06-11 09:55:00 Test Item Value Reference Range Interpretation Comments Chloride Lvl (test code = Chloride Lvl) 104 95-109 [place] 665472-06-11 09:55:00 Test Item Value Reference Range Interpretation Comments CO2 (test code = CO2) 26 24-32 [place] 665472-06-11 09:55:00 Test Item Value Reference Range Interpretation Comments Calcium Lvl (test code = Calcium Lvl) 8.7 8.5-10.5 [place] 665472-06-11 09:55:00 Test Item Value Reference Range Interpretation Comments AGAP (test code = AGAP) 10.5 10.0-20.0 [place] 665472-06-11 09:55:00 Test Item Value Reference Range Interpretation Comments eGFR (test code = eGFR) 101 [place] 665472-06-11 09:55:00 Test Item Value Reference Range Interpretation Comments Magnesium Lvl (test code = Magnesium 2.5 1.8-2.4 Lvl) [place] 665472-06-11 09:55:00 Test Item Value Reference Range Interpretation Comments Phosphorus (test code = Phosphorus) 3.9 2.5-4.5 [facility] 09:55:00 Test Item Value Reference Range Interpretation Comments Segs (test code = Segs) 60.2 45.0-75.0 [place] [address]-06-11 09:55:00 Test Item Value Reference Range Interpretation Comments Lymphocytes (test code = Lymphocytes) 29.2 20.0-40.0 [place] [address]-06-11 09:55:00 Test Item Value Reference Range Interpretation Comments Monocytes (test code = Monocytes) 5.7 2.0-12.0 [place] [address]-06-11 09:55:00 Test Item Value Reference Range Interpretation Comments Eosinophils (test code = 4.7 See_Comment [A utomated message] The Eosinophils) system which ge nerated this result tra nsmitted reference range : <=4.0. The reference r yi was not used to int erpret this result as normal/abnormal . [place] [address]-06-11 09:55:00 Test Item Value Reference Range Interpretation Comments Basophils (test code = 0.2 See_Comment [Aut omated message] The Basophils) system which ge nerated this result tra nsmitted reference range : <=1.0. The reference r yi was not used to int erpret this result as normal/abnormal . [place] 494382-06-11 09:55:00 Test Item Value Reference Range Interpretation Comments Neutrophils # (test code = Neutrophils 2.8 1.5-8.1 #) [place] [address]-06-11 09:55:00 Test Item Value Reference Range Interpretation Comments Lymphocytes # (test code = Lymphocytes 1.4 1.0-5.5 #) [place] [address]-06-11 09:55:00 Test Item Value Reference Range Interpretation Comments Monocytes # (test code 0.3 See_Comment [Aut omated message] The = Monocytes #) system which generated this result tra nsmitted reference range : <=0.8. The reference r yi was not used to int erpret this result as normal/abnormal . [place] [address]-06-11 09:55:00 Test Item Value Reference Range Interpretation Comments Eosinophils # (test code 0.2 See_Comment [A utomated message] The = Eosinophils #) system whic h generated this result tra nsmitted reference range : <=0.5. The reference r yi was not used to int erpret this result as normal/abnormal . [facility]AllenJsdtgsuXWNULNBXKJ0973-84-55 09:55:00 Test Item Value Reference Range Interpretation Comments Macrocyte (test code = 3+ *NA*(11/08/21 4:55 Macrocyte) AM) [facility]AllenTncuqzpEMEJSDJUYZ9814-93-15 09:55:00 Test Item Value Reference Range Interpretation Comments WBC (test code = WBC) 4.7 3.7-10.4 [facility] McAllenTdfjrseMCYAADMFYN9662-94-52 09:55:00 Test Item Value Reference Range Interpretation Comments RBC (test code = RBC) 2.17 4.70-6.10 [facility] McAllenRlidljaEUBANTCAXG2066-19-72 09:55:00 Test Item Value Reference Range Interpretation Comments Hgb (test code = Hgb) 9.0 14.0-18.0 [facility]AllenYdsrntpJSYRLNNTRT2650-40-90 09:55:00 Test Item Value Reference Range Interpretation Comments Hct (test code = Hct) 24.8 42.0-54.0 [facility]AllenHvlbvdmUYDHOOFLOZ4322-16-92 09:55:00 Test Item Value Reference Range Interpretation Comments MCV (test code = MCV) 114.5 80.0-94.0 [facility]AllenNezyfvdCOTHPTLHQW1631-02-88 09:55:00 Test Item Value Reference Range Interpretation Comments MCH (test code = MCH) 41.6 pg 27.0-31.0 [facility] McAllenDtgxvasFFCKSSYJTC6175-29-88 09:55:00 Test Item Value Reference Range Interpretation Comments MCHC (test code = MCHC) 36.3 32.0-36.0 [facility] McAllenBnixdukGADOTAFOFM3512-44-16 09:55:00 Test Item Value Reference Range Interpretation Comments RDW (test code = RDW) 19.3 11.5-14.5 [place] 494382-06-11 09:55:00 Test Item Value Reference Range Interpretation Comments Platelet (test code = Platelet) 227 133-450 [facility] McAllenMmapkvaFKEGNGFTZN4315-43-13 09:55:00 Test Item Value Reference Range Interpretation Comments MPV (test code = MPV) 8.4 7.4-10.4 [facility]2022-06-11 09:55:00 Test Item Value Reference Range Interpretation Comments Glucose Lvl (test code = Glucose Lvl) 91 70-99 [place] 665472-06-11 09:55:00 Test Item Value Reference Range Interpretation Comments BUN (test code = BUN) 18 7-22 [place] 665472-06-11 09:55:00 Test Item Value Reference Range Interpretation Comments Creatinine Lvl (test code = Creatinine 0.78 0.50-1.40 Lvl) [place] 665472-06-11 09:55:00 Test Item Value Reference Range Interpretation Comments Sodium Lvl (test code = Sodium Lvl) 137 135-145 [place] 665472-06-11 09:55:00 Test Item Value Reference Range Interpretation Comments Potassium Lvl (test code = Potassium 3.5 3.5-5.1 Lvl) [place] 665472-06-11 09:55:00 Test Item Value Reference Range Interpretation Comments Chloride Lvl (test code = Chloride Lvl) 104 95-109 [place] 665472-06-11 09:55:00 Test Item Value Reference Range Interpretation Comments CO2 (test code = CO2) 26 24-32 [place] 665472-06-11 09:55:00 Test Item Value Reference Range Interpretation Comments Calcium Lvl (test code = Calcium Lvl) 8.7 8.5-10.5 [place] 665472-06-11 09:55:00 Test Item Value Reference Range Interpretation Comments AGAP (test code = AGAP) 10.5 10.0-20.0 [place] 665472-06-11 09:55:00 Test Item Value Reference Range Interpretation Comments eGFR (test code = eGFR) 101 [place] 665472-06-11 09:55:00 Test Item Value Reference Range Interpretation Comments Magnesium Lvl (test code = Magnesium 2.5 1.8-2.4 Lvl) [place] 665472-06-11 09:55:00 Test Item Value Reference Range Interpretation Comments Phosphorus (test code = Phosphorus) 3.9 2.5-4.5 [place] 494382-06-11 09:55:00 Test Item Value Reference Range Interpretation Comments Segs (test code = Segs) 60.2 45.0-75.0 [place] [address]-06-11 09:55:00 Test Item Value Reference Range Interpretation Comments Lymphocytes (test code = Lymphocytes) 29.2 20.0-40.0 [place] 494382-06-11 09:55:00 Test Item Value Reference Range Interpretation Comments Monocytes (test code = Monocytes) 5.7 2.0-12.0 [place] 494382-06-11 09:55:00 Test Item Value Reference Range Interpretation Comments Eosinophils (test code = 4.7 See_Comment [A utomated message] The Eosinophils) system which ge nerated this result tra nsmitted reference range : <=4.0. The reference r yi was not used to int erpret this result as normal/abnormal . [place] 494382-06-11 09:55:00 Test Item Value Reference Range Interpretation Comments Basophils (test code = 0.2 See_Comment [Aut omated message] The Basophils) system which ge nerated this result tra nsmitted reference range : <=1.0. The reference r yi was not used to int erpret this result as normal/abnormal . [facility] McAllenKaykyjmVMMBCSAXRF5654-45-77 09:55:00 Test Item Value Reference Range Interpretation Comments Neutrophils # (test code = Neutrophils 2.8 1.5-8.1 #) [facility] McAllenPxsjcpePNYEUBHMJK5538-86-34 09:55:00 Test Item Value Reference Range Interpretation Comments Lymphocytes # (test code = Lymphocytes 1.4 1.0-5.5 #) [facility] McAllenZgckubbIGBUCRMYDI2665-62-52 09:55:00 Test Item Value Reference Range Interpretation Comments Monocytes # (test code 0.3 See_Comment [Aut omated message] The = Monocytes #) system which generated this result tra nsmitted reference range : <=0.8. The reference r yi was not used to int erpret this result as normal/abnormal . [facility]AllenAbdjtdqERCCCPWJSX2747-18-33 09:55:00 Test Item Value Reference Range Interpretation Comments Eosinophils # (test code 0.2 See_Comment [A utomated message] The = Eosinophils #) system whic h generated this result tra nsmitted reference range : <=0.5. The reference r yi was not used to int erpret this result as normal/abnormal . [facility] McAllenDfjpqiqTQOMTMVLQH3304-13-22 09:55:00 Test Item Value Reference Range Interpretation Comments Macrocyte (test code = 3+ *NA*(11/08/21 4:55 Macrocyte) AM) [facility] McAllenGxwyblzXKMDIBRVAQ1322-55-57 09:55:00 Test Item Value Reference Range Interpretation Comments WBC (test code = WBC) 4.7 3.7-10.4 [facility] McAllenFireoilBCQVMHCGHJ8885-37-72 09:55:00 Test Item Value Reference Range Interpretation Comments RBC (test code = RBC) 2.17 4.70-6.10 [facility]AllenAuhmpqhEYATLDFCGM0637-51-26 09:55:00 Test Item Value Reference Range Interpretation Comments Hgb (test code = Hgb) 9.0 14.0-18.0 [facility]AllenCwhteyxKTYUMBLYGX6364-29-13 09:55:00 Test Item Value Reference Range Interpretation Comments Hct (test code = Hct) 24.8 42.0-54.0 [facility] McAllenAqtxfnsZBIOZJIQXE0492-82-54 09:55:00 Test Item Value Reference Range Interpretation Comments MCV (test code = MCV) 114.5 80.0-94.0 [facility] McAllenQpabbnaMSXNTTRIXG4971-18-43 09:55:00 Test Item Value Reference Range Interpretation Comments MCH (test code = MCH) 41.6 pg 27.0-31.0 [facility] McAllenSyemloqRIFJCXEOOY9769-42-00 09:55:00 Test Item Value Reference Range Interpretation Comments MCHC (test code = MCHC) 36.3 32.0-36.0 [facility]AllenAbqcpcbZNQTBREIZZ7839-77-39 09:55:00 Test Item Value Reference Range Interpretation Comments RDW (test code = RDW) 19.3 11.5-14.5 [facility]AllenEodmzcwBYDFVWIAPR2111-64-24 09:55:00 Test Item Value Reference Range Interpretation Comments Platelet (test code = Platelet) 227 133-450 [facility] McAllenSqrtuchGSIKTEUCPR7857-33-34 09:55:00 Test Item Value Reference Range Interpretation Comments MPV (test code = MPV) 8.4 7.4-10.4 [facility] McAllenGusdrgkNHEWGFJUVL5352-37-30 08:03:00 Test Item Value Reference Range Interpretation Comments Segs (test code = Segs) 53.0 45.0-75.0 [place] 494382-06-09 08:03:00 Test Item Value Reference Range Interpretation Comments Lymphocytes (test code = Lymphocytes) 42.1 20.0-40.0 [place] 494382-06-09 08:03:00 Test Item Value Reference Range Interpretation Comments Monocytes (test code = Monocytes) 2.9 2.0-12.0 [facility] McAllenAdtnybuFVQFLVEXDH8220-42-46 08:03:00 Test Item Value Reference Range Interpretation Comments Eosinophils (test code = 1.8 See_Comment [A utomated message] The Eosinophils) system which ge nerated this result tra nsmitted reference range : <=4.0. The reference r yi was not used to int erpret this result as normal/abnormal . [facility] McAllenXdjghcoLMTTPSFWYU7612-09-00 08:03:00 Test Item Value Reference Range Interpretation Comments Basophils (test code = 0.2 See_Comment [Aut omated message] The Basophils) system which ge nerated this result tra nsmitted reference range : <=1.0. The reference r yi was not used to int erpret this result as normal/abnormal . [facility]AllenSpfdiwmLNPDZDCAYO1836-76-46 08:03:00 Test Item Value Reference Range Interpretation Comments Neutrophils # (test code = Neutrophils 2.0 1.5-8.1 #) [facility] McAllenWiehxitNFEVNDSTSY0231-77-85 08:03:00 Test Item Value Reference Range Interpretation Comments Lymphocytes # (test code = Lymphocytes 1.6 1.0-5.5 #) [facility] McAllenZlilngjRVOPWUYNEL3362-20-43 08:03:00 Test Item Value Reference Range Interpretation Comments Monocytes # (test code 0.1 See_Comment [Aut omated message] The = Monocytes #) system which generated this result tra nsmitted reference range : <=0.8. The reference r yi was not used to int erpret this result as normal/abnormal . [place] 494382-06-09 08:03:00 Test Item Value Reference Range Interpretation Comments Eosinophils # (test code 0.1 See_Comment [A utomated message] The = Eosinophils #) system whic h generated this result tra nsmitted reference range : <=0.5. The reference r yi was not used to int erpret this result as normal/abnormal . [place] 494382-06-09 08:03:00 Test Item Value Reference Range Interpretation Comments Anisocyte (test code = 1+ *ABN*(11/06/21 3:03 Anisocyte) AM) [facility]AllenAvpcjstCKGTUHHVLC7107-86-45 08:03:00 Test Item Value Reference Range Interpretation Comments Macrocyte (test code = 3+ *NA*(11/06/21 3:03 Macrocyte) AM) [facility] McAllenXfudxllZFEIQNCEOB1696-92-45 08:03:00 Test Item Value Reference Range Interpretation Comments Polychrom (test code = Polychrom) [facility]2022-06-09 08:03:00 Test Item Value Reference Range Interpretation Comments Ferritin Lvl (test code = Ferritin Lvl) 386 22-974 [facility] McAllenKkgjlxnZTRZDWEYHW7861-52-59 08:03:00 Test Item Value Reference Range Interpretation Comments WBC (test code = WBC) 3.8 3.7-10.4 [facility] McAllenIpislhxMXZFJTXPVK1752-77-01 08:03:00 Test Item Value Reference Range Interpretation Comments RBC (test code = RBC) 2.05 4.70-6.10 [facility] McAllenIzbwfngVLYIQEOQFC6836-13-11 08:03:00 Test Item Value Reference Range Interpretation Comments Hgb (test code = Hgb) 8.4 14.0-18.0 [facility] McAllenCevcanzISLFGUPJXU2052-28-92 08:03:00 Test Item Value Reference Range Interpretation Comments Hct (test code = Hct) 23.6 42.0-54.0 [facility] McAllenQcpvpftELQURBUYDP4829-17-33 08:03:00 Test Item Value Reference Range Interpretation Comments MCV (test code = MCV) 115.3 80.0-94.0 [facility] McAllenRrbbdmcPGCCEMPRCJ7567-75-07 08:03:00 Test Item Value Reference Range Interpretation Comments MCH (test code = MCH) 41.2 pg 27.0-31.0 [facility] McAllenRyrxadcJJOVSYGIOO2796-91-14 08:03:00 Test Item Value Reference Range Interpretation Comments MCHC (test code = MCHC) 35.7 32.0-36.0 [facility]AllenBhjlnonPXTWCEHFQL7580-31-39 08:03:00 Test Item Value Reference Range Interpretation Comments RDW (test code = RDW) 19.1 11.5-14.5 [facility] McAllenHfqnsksNIHYNRHZIA1928-19-55 08:03:00 Test Item Value Reference Range Interpretation Comments Platelet (test code = Platelet) 219 133-450 [facility] McAllenRtzkzxdAOAUVRERZM0210-16-44 08:03:00 Test Item Value Reference Range Interpretation Comments MPV (test code = MPV) 9.0 7.4-10.4 [place] 494382-06-09 08:03:00 Test Item Value Reference Range Interpretation Comments Plt Morph (test code = Normal (11/06/21 3:03 AM) Plt Morph) [facility] McAllenFtareveIEDFUFRUCT9458-01-56 08:03:00 Test Item Value Reference Range Interpretation Comments Segs (test code = Segs) 53.0 45.0-75.0 [place] 494382-06-09 08:03:00 Test Item Value Reference Range Interpretation Comments Lymphocytes (test code = Lymphocytes) 42.1 20.0-40.0 [place] 494382-06-09 08:03:00 Test Item Value Reference Range Interpretation Comments Monocytes (test code = Monocytes) 2.9 2.0-12.0 [place] 494382-06-09 08:03:00 Test Item Value Reference Range Interpretation Comments Eosinophils (test code = 1.8 See_Comment [A utomated message] The Eosinophils) system which ge nerated this result tra nsmitted reference range : <=4.0. The reference r yi was not used to int erpret this result as normal/abnormal . [facility] McAllenBoubfxpEOMLQCUGXU9268-58-92 08:03:00 Test Item Value Reference Range Interpretation Comments Basophils (test code = 0.2 See_Comment [Aut omated message] The Basophils) system which ge nerated this result tra nsmitted reference range : <=1.0. The reference r yi was not used to int erpret this result as normal/abnormal . [facility]AllenEsrbwhvIFBAXBQDES0156-26-95 08:03:00 Test Item Value Reference Range Interpretation Comments Neutrophils # (test code = Neutrophils 2.0 1.5-8.1 #) [place] 494382-06-09 08:03:00 Test Item Value Reference Range Interpretation Comments Lymphocytes # (test code = Lymphocytes 1.6 1.0-5.5 #) [place] [address]-06-09 08:03:00 Test Item Value Reference Range Interpretation Comments Monocytes # (test code 0.1 See_Comment [Aut omated message] The = Monocytes #) system which generated this result tra nsmitted reference range : <=0.8. The reference r yi was not used to int erpret this result as normal/abnormal . [facility]AllenNokcyfdMKQGPUIQAA6708-97-20 08:03:00 Test Item Value Reference Range Interpretation Comments Eosinophils # (test code 0.1 See_Comment [A utomated message] The = Eosinophils #) system whic h generated this result tra nsmitted reference range : <=0.5. The reference r yi was not used to int erpret this result as normal/abnormal . [facility] McAllenBqcrkarHKSLNJUMUP2533-11-89 08:03:00 Test Item Value Reference Range Interpretation Comments Anisocyte (test code = 1+ *ABN*(11/06/21 3:03 Anisocyte) AM) [facility]AllenIzduuppGXBCBKLPBN3912-72-70 08:03:00 Test Item Value Reference Range Interpretation Comments Macrocyte (test code = 3+ *NA*(11/06/21 3:03 Macrocyte) AM) [facility]AllenZuqqrjtMHBQAODSIQ8487-21-65 08:03:00 Test Item Value Reference Range Interpretation Comments Polychrom (test code = Polychrom) [facility]2022-06-09 08:03:00 Test Item Value Reference Range Interpretation Comments Ferritin Lvl (test code = Ferritin Lvl) 386 22-275 [facility]AllenDuclnybHSFNMOZKCV6954-31-15 08:03:00 Test Item Value Reference Range Interpretation Comments WBC (test code = WBC) 3.8 3.7-10.4 [facility] McAllenSmabcpaQBOUFGAZQR3566-26-33 08:03:00 Test Item Value Reference Range Interpretation Comments RBC (test code = RBC) 2.05 4.70-6.10 [facility]AllenFjrunrtCZHBRLVEEI1324-74-34 08:03:00 Test Item Value Reference Range Interpretation Comments Hgb (test code = Hgb) 8.4 14.0-18.0 [facility] McAllenVgqzxjxXNWAGCJGOY1229-95-25 08:03:00 Test Item Value Reference Range Interpretation Comments Hct (test code = Hct) 23.6 42.0-54.0 [facility]AllenCzddgzcSSVUKYEAVG9313-55-70 08:03:00 Test Item Value Reference Range Interpretation Comments MCV (test code = MCV) 115.3 80.0-94.0 [facility] McAllenAlllfntGIKTLBRFLY7066-05-51 08:03:00 Test Item Value Reference Range Interpretation Comments MCH (test code = MCH) 41.2 pg 27.0-31.0 [facility] McAllenSoinogfMPQHATDBOY6025-94-74 08:03:00 Test Item Value Reference Range Interpretation Comments MCHC (test code = MCHC) 35.7 32.0-36.0 [place] 494382-06-09 08:03:00 Test Item Value Reference Range Interpretation Comments RDW (test code = RDW) 19.1 11.5-14.5 [place] 494382-06-09 08:03:00 Test Item Value Reference Range Interpretation Comments Platelet (test code = Platelet) 219 133-450 [facility] McAllenEglpdeiIVIBGJFZGR0041-86-97 08:03:00 Test Item Value Reference Range Interpretation Comments MPV (test code = MPV) 9.0 7.4-10.4 [place] 494382-06-09 08:03:00 Test Item Value Reference Range Interpretation Comments Plt Morph (test code = Normal (11/06/21 3:03 AM) Plt Morph) [facility]AllenBrowhphFHBAQJMCDK6163-47-41 08:03:00 Test Item Value Reference Range Interpretation Comments Segs (test code = Segs) 53.0 45.0-75.0 [facility] McAllenJxlaodwQSPVMTIMIC7275-13-24 08:03:00 Test Item Value Reference Range Interpretation Comments Lymphocytes (test code = Lymphocytes) 42.1 20.0-40.0 [place] 494382-06-09 08:03:00 Test Item Value Reference Range Interpretation Comments Monocytes (test code = Monocytes) 2.9 2.0-12.0 [place] 494382-06-09 08:03:00 Test Item Value Reference Range Interpretation Comments Eosinophils (test code = 1.8 See_Comment [A utomated message] The Eosinophils) system which ge nerated this result tra nsmitted reference range : <=4.0. The reference r yi was not used to int erpret this result as normal/abnormal . [place] 494382-06-09 08:03:00 Test Item Value Reference Range Interpretation Comments Basophils (test code = 0.2 See_Comment [Aut omated message] The Basophils) system which ge nerated this result tra nsmitted reference range : <=1.0. The reference r yi was not used to int erpret this result as normal/abnormal . [facility] McAllenJvxvqabLZZATBPQHQ4873-64-53 08:03:00 Test Item Value Reference Range Interpretation Comments Neutrophils # (test code = Neutrophils 2.0 1.5-8.1 #) [facility] McAllenNmcvkwzCFCXTOOWWA9074-92-51 08:03:00 Test Item Value Reference Range Interpretation Comments Lymphocytes # (test code = Lymphocytes 1.6 1.0-5.5 #) [facility] McAllenEnkkyhaPFIQYMGSVN2004-23-61 08:03:00 Test Item Value Reference Range Interpretation Comments Monocytes # (test code 0.1 See_Comment [Aut omated message] The = Monocytes #) system which generated this result tra nsmitted reference range : <=0.8. The reference r yi was not used to int erpret this result as normal/abnormal . [facility] McAllenTlkgmlxKFMRJZJFLA9690-38-25 08:03:00 Test Item Value Reference Range Interpretation Comments Eosinophils # (test code 0.1 See_Comment [A utomated message] The = Eosinophils #) system whic h generated this result tra nsmitted reference range : <=0.5. The reference r yi was not used to int erpret this result as normal/abnormal . [facility] McAllenJqyhnhaFSSMEKDGJA9321-08-30 08:03:00 Test Item Value Reference Range Interpretation Comments Anisocyte (test code = 1+ *ABN*(11/06/21 3:03 Anisocyte) AM) [facility] McAllenSyfgdzcIYTPGZIKBL2921-30-62 08:03:00 Test Item Value Reference Range Interpretation Comments Macrocyte (test code = 3+ *NA*(11/06/21 3:03 Macrocyte) AM) [facility] McAllenTqdeykdXECYZXGGTN3897-67-69 08:03:00 Test Item Value Reference Range Interpretation Comments Polychrom (test code = Polychrom) [facility]2022-06-09 08:03:00 Test Item Value Reference Range Interpretation Comments Ferritin Lvl (test code = Ferritin Lvl) 386 99-022 [facility] McAllenCyxmitfFCQAMTQCHP9920-50-13 08:03:00 Test Item Value Reference Range Interpretation Comments WBC (test code = WBC) 3.8 3.7-10.4 [facility] McAllenXrchyzqOPRUCUMLOB6314-37-52 08:03:00 Test Item Value Reference Range Interpretation Comments RBC (test code = RBC) 2.05 4.70-6.10 [facility] McAllenFrkqxwfQTGPNQUOPY8583-10-65 08:03:00 Test Item Value Reference Range Interpretation Comments Hgb (test code = Hgb) 8.4 14.0-18.0 [facility] McAllenHterjeuTLYLPPCCLH3388-57-18 08:03:00 Test Item Value Reference Range Interpretation Comments Hct (test code = Hct) 23.6 42.0-54.0 [facility] McAllenLenpbocPPAHGNLZVR3064-08-54 08:03:00 Test Item Value Reference Range Interpretation Comments MCV (test code = MCV) 115.3 80.0-94.0 [facility] McAllenFzqncihIFAEMJBWLG5148-65-05 08:03:00 Test Item Value Reference Range Interpretation Comments MCH (test code = MCH) 41.2 pg 27.0-31.0 [facility] McAllenSkywwpbGLAFRFDMZM0161-53-05 08:03:00 Test Item Value Reference Range Interpretation Comments MCHC (test code = MCHC) 35.7 32.0-36.0 [facility] McAllenFedikkqQWUXDTWQFY6320-23-38 08:03:00 Test Item Value Reference Range Interpretation Comments RDW (test code = RDW) 19.1 11.5-14.5 [facility] McAllenMzayoxiPXWNNVWDAM5385-11-64 08:03:00 Test Item Value Reference Range Interpretation Comments Platelet (test code = Platelet) 219 133-450 [facility] McAllenTfnpqejYWUVJGIOCF2630-09-69 08:03:00 Test Item Value Reference Range Interpretation Comments MPV (test code = MPV) 9.0 7.4-10.4 [facility] McAllenSgpenrlMLWYLRHTTT8408-66-59 08:03:00 Test Item Value Reference Range Interpretation Comments Plt Morph (test code = Normal (11/06/21 3:03 AM) Plt Morph) [facility] AND [id number] 04:05:38 Test Item Value Reference Range Interpretation Comments UA Color (test code = Yellow *NA*(11/04/21 UA Color) 11:05 PM) [facility] AND [id number] 04:05:38 Test Item Value Reference Range Interpretation Comments UA Turbidity (test code = Clear (11/04/21 11:05 UA Turbidity) PM) [facility] AND [id number] 04:05:38 Test Item Value Reference Range Interpretation Comments UA Spec Grav (test code = UA Spec 1.027 1 Grav) [facility] AND [id number] 04:05:38 Test Item Value Reference Range Interpretation Comments UA pH (test code = UA pH) 5.0 1 5.0-8.0 [facility] AND [id number] 04:05:38 Test Item Value Reference Range Interpretation Comments UA Protein (test code = UA Negative mg/dL Protein) [facility] AND [id number] 04:05:38 Test Item Value Reference Range Interpretation Comments UA Glucose (test code = UA Negative mg/dL Glucose) [facility] AND [id number] 04:05:38 Test Item Value Reference Range Interpretation Comments UA Ketones (test code = UA Ketones) 80 mg/dL [facility] AND [id number] 04:05:38 Test Item Value Reference Range Interpretation Comments UA Bili (test code = Negative *NA*(11/04/21 UA Bili) 11:05 PM) [facility] AND [id number] 04:05:38 Test Item Value Reference Range Interpretation Comments UA Blood (test code = Moderate *ABN*(11/04/21 UA Blood) 11:05 PM) [facility] AND [id number] 04:05:38 Test Item Value Reference Range Interpretation Comments UA Urobilinogen (test code = UA 4.0 0.1-1.0 Urobilinogen) [facility] AND [id number] 04:05:38 Test Item Value Reference Range Interpretation Comments UA Nitrite (test code Negative (11/04/21 11:05 = UA Nitrite) PM) [facility] AND [id number] 04:05:38 Test Item Value Reference Range Interpretation Comments UA Leuk Est (test Negative (11/04/21 11:05 code = UA Leuk Est) PM) [facility] AND [id number] 04:05:38 Test Item Value Reference Range Interpretation Comments UA Sq Epi (test code = UA Sq Occasional /LPF Epi) [facility] AND [id number] 04:05:38 Test Item Value Reference Range Interpretation Comments UA WBC (test code = 1 See_Comment [Automa shukri message] The UA WBC) system which ge nerated this result transmit shukri reference range : <=5. The reference range was not used to interpr et this result as aurora l/abnormal. [facility] [id number] 04:05:38 Test Item Value Reference Range Interpretation Comments UA RBC (test code = 1 See_Comment [Automa shukri message] The UA RBC) system which ge nerated this result transmit shukri reference range : <=2. The reference range was not used to interpr et this result as aurora l/abnormal. [facility] [id number] 04:05:38 Test Item Value Reference Range Interpretation Comments UA Mucus (test code = UA Mucus) Few /LPF [facility] AND [id number] 04:05:38 Test Item Value Reference Range Interpretation Comments UA Hyal Cast (test 1 See_Comment [Automat ed message] The code = UA Hyal Cast) system which generated this result transmit shukri reference range : <=2. The reference range was not used to interpr et this result as aurora l/abnormal. [facility] [id number] 04:05:38 Test Item Value Reference Range Interpretation Comments UA Color (test code = Yellow *NA*(11/04/21 UA Color) 11:05 PM) [facility] AND [id number] 04:05:38 Test Item Value Reference Range Interpretation Comments UA Turbidity (test code = Clear (11/04/21 11:05 UA Turbidity) PM) [facility] AND [id number] 04:05:38 Test Item Value Reference Range Interpretation Comments UA Spec Grav (test code = UA Spec 1.027 1 Grav) [facility] AND [id number] 04:05:38 Test Item Value Reference Range Interpretation Comments UA pH (test code = UA pH) 5.0 1 5.0-8.0 [facility] AND [id number] 04:05:38 Test Item Value Reference Range Interpretation Comments UA Protein (test code = UA Negative mg/dL Protein) [facility] AND [id number] 04:05:38 Test Item Value Reference Range Interpretation Comments UA Glucose (test code = UA Negative mg/dL Glucose) [facility] AND [id number] 04:05:38 Test Item Value Reference Range Interpretation Comments UA Ketones (test code = UA Ketones) 80 mg/dL [facility] [id number] 04:05:38 Test Item Value Reference Range Interpretation Comments UA Bili (test code = Negative *NA*(11/04/21 UA Bili) 11:05 PM) [facility] [id number] 04:05:38 Test Item Value Reference Range Interpretation Comments UA Blood (test code = Moderate *ABN*(11/04/21 UA Blood) 11:05 PM) [facility] [id number] 04:05:38 Test Item Value Reference Range Interpretation Comments UA Urobilinogen (test code = UA 4.0 0.1-1.0 Urobilinogen) [facility] AND [id number] 04:05:38 Test Item Value Reference Range Interpretation Comments UA Nitrite (test code Negative (11/04/21 11:05 = UA Nitrite) PM) [facility] AND [id number] 04:05:38 Test Item Value Reference Range Interpretation Comments UA Leuk Est (test Negative (11/04/21 11:05 code = UA Leuk Est) PM) [facility] [id number] 04:05:38 Test Item Value Reference Range Interpretation Comments UA Sq Epi (test code = UA Sq Occasional /LPF Epi) [facility] AND [id number] 04:05:38 Test Item Value Reference Range Interpretation Comments UA WBC (test code = 1 See_Comment [Automa shukri message] The UA WBC) system which ge nerated this result transmit shukri reference range : <=5. The reference range was not used to interpr et this result as aurora l/abnormal. [facility] AND [id number] 04:05:38 Test Item Value Reference Range Interpretation Comments UA RBC (test code = 1 See_Comment [Automa shukri message] The UA RBC) system which ge nerated this result transmit shukri reference range : <=2. The reference range was not used to interpr et this result as aurora l/abnormal. [facility] [id number] 04:05:38 Test Item Value Reference Range Interpretation Comments UA Mucus (test code = UA Mucus) Few /LPF [facility] AND [id number] 04:05:38 Test Item Value Reference Range Interpretation Comments UA Hyal Cast (test 1 See_Comment [Automat ed message] The code = UA Hyal Cast) system which generated this result transmit shukri reference range : <=2. The reference range was not used to interpr et this result as aurora l/abnormal. [facility] AND [id number] 04:05:38 Test Item Value Reference Range Interpretation Comments UA Color (test code = Yellow *NA*(11/04/21 UA Color) 11:05 PM) [facility] AND [id number] 04:05:38 Test Item Value Reference Range Interpretation Comments UA Turbidity (test code = Clear (11/04/21 11:05 UA Turbidity) PM) [facility] AND [id number] 04:05:38 Test Item Value Reference Range Interpretation Comments UA Spec Grav (test code = UA Spec 1.027 1 Grav) [facility] AND [id number] 04:05:38 Test Item Value Reference Range Interpretation Comments UA pH (test code = UA pH) 5.0 1 5.0-8.0 [facility] AND [id number] 04:05:38 Test Item Value Reference Range Interpretation Comments UA Protein (test code = UA Negative mg/dL Protein) [facility] AND [id number] 04:05:38 Test Item Value Reference Range Interpretation Comments UA Glucose (test code = UA Negative mg/dL Glucose) [facility] AND [id number] 04:05:38 Test Item Value Reference Range Interpretation Comments UA Ketones (test code = UA Ketones) 80 mg/dL [facility] AND [id number] 04:05:38 Test Item Value Reference Range Interpretation Comments UA Bili (test code = Negative *NA*(11/04/21 UA Bili) 11:05 PM) [facility] AND [id number] 04:05:38 Test Item Value Reference Range Interpretation Comments UA Blood (test code = Moderate *ABN*(11/04/21 UA Blood) 11:05 PM) [facility] AND [id number] 04:05:38 Test Item Value Reference Range Interpretation Comments UA Urobilinogen (test code = UA 4.0 0.1-1.0 Urobilinogen) [facility] AND [id number] 04:05:38 Test Item Value Reference Range Interpretation Comments UA Nitrite (test code Negative (11/04/21 11:05 = UA Nitrite) PM) [facility] [id number] 04:05:38 Test Item Value Reference Range Interpretation Comments UA Leuk Est (test Negative (11/04/21 11:05 code = UA Leuk Est) PM) [facility] AND [id number] 04:05:38 Test Item Value Reference Range Interpretation Comments UA Sq Epi (test code = UA Sq Occasional /LPF Epi) [facility] AND [id number] 04:05:38 Test Item Value Reference Range Interpretation Comments UA WBC (test code = 1 See_Comment [Automa shukri message] The UA WBC) system which ge nerated this result transmit shukri reference range : <=5. The reference range was not used to interpr et this result as aurora l/abnormal. [facility] AND [id number] 04:05:38 Test Item Value Reference Range Interpretation Comments UA RBC (test code = 1 See_Comment [Automa shukri message] The UA RBC) system which ge nerated this result transmit shukri reference range : <=2. The reference range was not used to interpr et this result as aurora l/abnormal. [facility] AND [id number] 04:05:38 Test Item Value Reference Range Interpretation Comments UA Mucus (test code = UA Mucus) Few /LPF [facility] AND [id number] 04:05:38 Test Item Value Reference Range Interpretation Comments UA Hyal Cast (test 1 See_Comment [Automat ed message] The code = UA Hyal Cast) system which generated this result transmit shukri reference range : <=2. The reference range was not used to interpr et this result as aurora l/abnormal. [facility] [employer] BANK [id number] 23:12:00 Test Item Value Reference Range Interpretation Comments ABO/Rh (test code = ABO/Rh) O POS [facility] [employer] BANK [id number] 23:12:00 Test Item Value Reference Range Interpretation Comments Antibody Scrn (test Negative (11/04/21 6:12 code = Antibody Scrn) PM) [facility] [employer] [id number] 23:12:00 Test Item Value Reference Range Interpretation Comments Glucose Lvl (test code = Glucose Lvl) 112 70-99 [place] 665472-06-07 23:12:00 Test Item Value Reference Range Interpretation Comments BUN (test code = BUN) 19 7-22 [place] 665472-06-07 23:12:00 Test Item Value Reference Range Interpretation Comments Creatinine Lvl (test code = Creatinine 0.97 0.50-1.40 Lvl) [place] 665472-06-07 23:12:00 Test Item Value Reference Range Interpretation Comments Sodium Lvl (test code = Sodium Lvl) 140 135-145 [place] 665472-06-07 23:12:00 Test Item Value Reference Range Interpretation Comments Potassium Lvl (test code = Potassium 4.1 3.5-5.1 Lvl) [place] 665472-06-07 23:12:00 Test Item Value Reference Range Interpretation Comments Chloride Lvl (test code = Chloride Lvl) 106 95-109 [place] 665472-06-07 23:12:00 Test Item Value Reference Range Interpretation Comments CO2 (test code = CO2) 26 24-32 [place] 665472-06-07 23:12:00 Test Item Value Reference Range Interpretation Comments Calcium Lvl (test code = Calcium Lvl) 9.0 8.5-10.5 [place] 665472-06-07 23:12:00 Test Item Value Reference Range Interpretation Comments AGAP (test code = AGAP) 12.1 10.0-20.0 [place] 665472-06-07 23:12:00 Test Item Value Reference Range Interpretation Comments eGFR (test code = eGFR) 87 [place] 494382-06-07 23:12:00 Test Item Value Reference Range Interpretation Comments Estimated % Lysis Rapid 0.0 See_Comment [Au tomated message] The (test code = Estimated syste m which generated % Lysis Rapid) this result t ransmitted reference range : <=7.5. The reference r yi was not used to int erpret this result as normal/abnormal . [place] 494382-06-07 23:12:00 Test Item Value Reference Range Interpretation Comments ACT (TEG) Rapid (test code = ACT (TEG) 121 s 86-118 Rapid) [facility] [id number] 23:12:00 Test Item Value Reference Range Interpretation Comments Split Point Rapid (test code = Split 0.6 min Point Rapid) [facility] M[id number] 23:12:00 Test Item Value Reference Range Interpretation Comments R-time Rapid (test code = R-time 0.8 min 0.4-0.7 Rapid) [facility]dxboepVOMVMRQUMF4746-46-57 23:12:00 Test Item Value Reference Range Interpretation Comments K-time Rapid (test code = K-time 0.8 min 0.6-2.3 Rapid) [facility] M[id number] 23:12:00 Test Item Value Reference Range Interpretation Comments Angle Rapid (test code = Angle 78 degrees 64-80 Rapid) [facility] McAllenFbxsgfoRSMNDJRNHX5782-37-56 23:12:00 Test Item Value Reference Range Interpretation Comments Max Amplitude Rapid (test code = Max 68 mm 52-71 Amplitude Rapid) [facility] CenterEldwpjwCKJTDSBAKP6513-47-86 23:12:00 Test Item Value Reference Range Interpretation Comments G-value Rapid (test code = G-value 10.6 5.0-11.6 Rapid) [facility] C[id number] 23:12:00 Test Item Value Reference Range Interpretation Comments Coronavirus (COVID-19) Not Detected (11/04/21 DAVONTE (test code = 6:12 PM) Coronavirus (COVID-19) DAVONTE) [facility] [id number] 23:12:00 Test Item Value Reference Range Interpretation Comments ABO/Rh (test code = ABO/Rh) O POS [facility] [employer] [id number] 23:12:00 Test Item Value Reference Range Interpretation Comments Antibody Scrn (test Negative (11/04/21 6:12 code = Antibody Scrn) PM) [facility] [employer] [id number] 23:12:00 Test Item Value Reference Range Interpretation Comments Glucose Lvl (test code = Glucose Lvl) 112 70-99 [facility] [id number] 23:12:00 Test Item Value Reference Range Interpretation Comments BUN (test code = BUN) 19 7-22 [facility] [employer]2022-06-07 23:12:00 Test Item Value Reference Range Interpretation Comments Creatinine Lvl (test code = Creatinine 0.97 0.50-1.40 Lvl) [place] 665472-06-07 23:12:00 Test Item Value Reference Range Interpretation Comments Sodium Lvl (test code = Sodium Lvl) 140 135-145 [place] 665472-06-07 23:12:00 Test Item Value Reference Range Interpretation Comments Potassium Lvl (test code = Potassium 4.1 3.5-5.1 Lvl) [place] 665472-06-07 23:12:00 Test Item Value Reference Range Interpretation Comments Chloride Lvl (test code = Chloride Lvl) 106 95-109 [place] 665472-06-07 23:12:00 Test Item Value Reference Range Interpretation Comments CO2 (test code = CO2) 26 24-32 [place] 665472-06-07 23:12:00 Test Item Value Reference Range Interpretation Comments Calcium Lvl (test code = Calcium Lvl) 9.0 8.5-10.5 [place] 665472-06-07 23:12:00 Test Item Value Reference Range Interpretation Comments AGAP (test code = AGAP) 12.1 10.0-20.0 [place] 665472-06-07 23:12:00 Test Item Value Reference Range Interpretation Comments eGFR (test code = eGFR) 87 [place] [address]-06-07 23:12:00 Test Item Value Reference Range Interpretation Comments Estimated % Lysis Rapid 0.0 See_Comment [Au tomated message] The (test code = Estimated syste m which generated % Lysis Rapid) this result t ransmitted reference range : <=7.5. The reference r yi was not used to int erpret this result as normal/abnormal . [place] 494382-06-07 23:12:00 Test Item Value Reference Range Interpretation Comments ACT (TEG) Rapid (test code = ACT (TEG) 121 s 86-118 Rapid) [place] 494382-06-07 23:12:00 Test Item Value Reference Range Interpretation Comments Split Point Rapid (test code = Split 0.6 min Point Rapid) [place] 494382-06-07 23:12:00 Test Item Value Reference Range Interpretation Comments R-time Rapid (test code = R-time 0.8 min 0.4-0.7 Rapid) [facility] CenterXxlnkubWCUSSYDOIA8215-46-69 23:12:00 Test Item Value Reference Range Interpretation Comments K-time Rapid (test code = K-time 0.8 min 0.6-2.3 Rapid) [facility] CenterVdgwktwDSPSRACKUH8999-54-32 23:12:00 Test Item Value Reference Range Interpretation Comments Angle Rapid (test code = Angle 78 degrees 64-80 Rapid) [facility] McAllenIjxqmgwFRTYDQHOUN6915-88-75 23:12:00 Test Item Value Reference Range Interpretation Comments Max Amplitude Rapid (test code = Max 68 mm 52-71 Amplitude Rapid) [facility] McAllenYghwezaGKBWZDQAKM5413-21-43 23:12:00 Test Item Value Reference Range Interpretation Comments G-value Rapid (test code = G-value 10.6 5.0-11.6 Rapid) [facility] Mc[id number] 23:12:00 Test Item Value Reference Range Interpretation Comments Coronavirus (COVID-19) Not Detected (11/04/21 DAVONTE (test code = 6:12 PM) Coronavirus (COVID-19) DAVONTE) [facility] [id number] 23:12:00 Test Item Value Reference Range Interpretation Comments ABO/Rh (test code = ABO/Rh) O POS [facility] [employer] [id number] 23:12:00 Test Item Value Reference Range Interpretation Comments Antibody Scrn (test Negative (11/04/21 6:12 code = Antibody Scrn) PM) [facility] [id number] 23:12:00 Test Item Value Reference Range Interpretation Comments Glucose Lvl (test code = Glucose Lvl) 112 70-99 [facility] [employer] [id number] 23:12:00 Test Item Value Reference Range Interpretation Comments BUN (test code = BUN) 19 - [facility] [employer] [id number] 23:12:00 Test Item Value Reference Range Interpretation Comments Creatinine Lvl (test code = Creatinine 0.97 0.50-1.40 Lvl) [facility] [employer] [id number] 23:12:00 Test Item Value Reference Range Interpretation Comments Sodium Lvl (test code = Sodium Lvl) 140 135-145 [facility] [employer] [id number] 23:12:00 Test Item Value Reference Range Interpretation Comments Potassium Lvl (test code = Potassium 4.1 3.5-5.1 Lvl) [place] 665472-06-07 23:12:00 Test Item Value Reference Range Interpretation Comments Chloride Lvl (test code = Chloride Lvl) 106 95-109 [place] 665472-06-07 23:12:00 Test Item Value Reference Range Interpretation Comments CO2 (test code = CO2) 26 24-32 [place] 665472-06-07 23:12:00 Test Item Value Reference Range Interpretation Comments Calcium Lvl (test code = Calcium Lvl) 9.0 8.5-10.5 [place] 665472-06-07 23:12:00 Test Item Value Reference Range Interpretation Comments AGAP (test code = AGAP) 12.1 10.0-20.0 [place] 665472-06-07 23:12:00 Test Item Value Reference Range Interpretation Comments eGFR (test code = eGFR) 87 [place] 494382-06-07 23:12:00 Test Item Value Reference Range Interpretation Comments Estimated % Lysis Rapid 0.0 See_Comment [Au tomated message] The (test code = Estimated syste m which generated % Lysis Rapid) this result t ransmitted reference range : <=7.5. The reference r yi was not used to int erpret this result as normal/abnormal . [place] 494382-06-07 23:12:00 Test Item Value Reference Range Interpretation Comments ACT (TEG) Rapid (test code = ACT (TEG) 121 s 86-118 Rapid) [place] [address]-06-07 23:12:00 Test Item Value Reference Range Interpretation Comments Split Point Rapid (test code = Split 0.6 min Point Rapid) [place] [address]-06-07 23:12:00 Test Item Value Reference Range Interpretation Comments R-time Rapid (test code = R-time 0.8 min 0.4-0.7 Rapid) [place] [address]-06-07 23:12:00 Test Item Value Reference Range Interpretation Comments K-time Rapid (test code = K-time 0.8 min 0.6-2.3 Rapid) [place] [address]-06-07 23:12:00 Test Item Value Reference Range Interpretation Comments Angle Rapid (test code = Angle 78 degrees 64-80 Rapid) [facility] McAllenYnpkrceTZNUAQJRXN5647-22-77 23:12:00 Test Item Value Reference Range Interpretation Comments Max Amplitude Rapid (test code = Max 68 mm 52-71 [employer] Rapid) [place] [id number] 23:12:00 Test Item Value Reference Range Interpretation Comments G-value Rapid (test code = G-value 10.6 5.0-11.6 Rapid) [facility]P4097[facility] 23:12:00 Test Item Value Reference Range Interpretation Comments Coronavirus (COVID-19) Not Detected (11/04/21 DAVONTE (test code = 6:12 PM) Coronavirus (COVID-19) DAVONTE) [facility]2022-05-14 05:45:00 Test Item Value Reference Range Interpretation Comments Glucose Lvl (test code = Glucose Lvl) 88 70-99 [place] 665472-05-14 05:45:00 Test Item Value Reference Range Interpretation Comments BUN (test code = BUN) 12-19 [place] 665472-05-14 05:45:00 Test Item Value Reference Range Interpretation Comments Creatinine Lvl (test code = Creatinine 0.79 0.50-1.40 Lvl) [place] 665472-05-14 05:45:00 Test Item Value Reference Range Interpretation Comments Sodium Lvl (test code = Sodium Lvl) 142 135-145 [place] 665472-05-14 05:45:00 Test Item Value Reference Range Interpretation Comments Potassium Lvl (test code = Potassium 3.4 3.5-5.1 Lvl) [place] 665472-05-14 05:45:00 Test Item Value Reference Range Interpretation Comments Chloride Lvl (test code = Chloride Lvl) 110 95-109 [place] 665472-05-14 05:45:00 Test Item Value Reference Range Interpretation Comments CO2 (test code = CO2) 27 24-32 [place] 665472-05-14 05:45:00 Test Item Value Reference Range Interpretation Comments Calcium Lvl (test code = Calcium Lvl) 8.6 8.5-10.5 [place] 665472-05-14 05:45:00 Test Item Value Reference Range Interpretation Comments AGAP (test code = AGAP) 8.4 10.0-20.0 [facility]2022-05-14 05:45:00 Test Item Value Reference Range Interpretation Comments eGFR (test code = eGFR) 100 [place] [address]-05-14 05:45:00 Test Item Value Reference Range Interpretation Comments Segs (test code = Segs) 59.2 45.0-75.0 [place] [address]-05-14 05:45:00 Test Item Value Reference Range Interpretation Comments Lymphocytes (test code = Lymphocytes) 32.7 20.0-40.0 [place] [address]-05-14 05:45:00 Test Item Value Reference Range Interpretation Comments Monocytes (test code = Monocytes) 3.6 2.0-12.0 [place] [address]-05-14 05:45:00 Test Item Value Reference Range Interpretation Comments Eosinophils (test code = 4.3 See_Comment [A utomated message] The Eosinophils) system which ge nerated this result tra nsmitted reference range : <=4.0. The reference r yi was not used to int erpret this result as normal/abnormal . [place] [address]-05-14 05:45:00 Test Item Value Reference Range Interpretation Comments Basophils (test code = 0.2 See_Comment [Aut omated message] The Basophils) system which ge nerated this result tra nsmitted reference range : <=1.0. The reference r yi was not used to int erpret this result as normal/abnormal . [place] 494382-05-14 05:45:00 Test Item Value Reference Range Interpretation Comments Neutrophils # (test code = Neutrophils 3.5 1.5-8.1 #) [place] [address]-05-14 05:45:00 Test Item Value Reference Range Interpretation Comments Lymphocytes # (test code = Lymphocytes 1.9 1.0-5.5 #) [place] [address]-05-14 05:45:00 Test Item Value Reference Range Interpretation Comments Monocytes # (test code 0.2 See_Comment [Aut omated message] The = Monocytes #) system which generated this result tra nsmitted reference range : <=0.8. The reference r yi was not used to int erpret this result as normal/abnormal . [place] [address]-05-14 05:45:00 Test Item Value Reference Range Interpretation Comments Eosinophils # (test code 0.3 See_Comment [A utomated message] The = Eosinophils #) system whic h generated this result tra nsmitted reference range : <=0.5. The reference r yi was not used to int erpret this result as normal/abnormal . [facility]AllenTzczvkiVQDELZMFGS9320-77-91 05:45:00 Test Item Value Reference Range Interpretation Comments Macrocyte (test code = 3+ *NA*(10/11/21 Macrocyte) 12:45 AM) [facility] McAllenUnqnkiyHOGICMBOKY8329-74-72 05:45:00 Test Item Value Reference Range Interpretation Comments WBC (test code = WBC) 5.9 3.7-10.4 [facility] McAllenRjjorwtXXVLOQTLSU3941-03-87 05:45:00 Test Item Value Reference Range Interpretation Comments RBC (test code = RBC) 2.56 4.70-6.10 [facility] McAllenCerfxlgCVRRLZUAMV2426-31-27 05:45:00 Test Item Value Reference Range Interpretation Comments Hgb (test code = Hgb) 10.2 14.0-18.0 [facility] McAllenIcpgrrkIBNZNRSAGA5029-31-87 05:45:00 Test Item Value Reference Range Interpretation Comments Hct (test code = Hct) 28.8 42.0-54.0 [facility] McAllenZusunkpTOKBJCCVTJ1597-73-13 05:45:00 Test Item Value Reference Range Interpretation Comments MCV (test code = MCV) 112.3 80.0-94.0 [facility] McAllenRtfclufOAEMTSZLRL5555-35-74 05:45:00 Test Item Value Reference Range Interpretation Comments MCH (test code = MCH) 39.9 pg 27.0-31.0 [facility] McAllenXigbpiiBMRIHVBZWQ3267-56-34 05:45:00 Test Item Value Reference Range Interpretation Comments MCHC (test code = MCHC) 35.6 32.0-36.0 [facility] McAllenYwmqdmlCBMJUQXTVB5635-14-38 05:45:00 Test Item Value Reference Range Interpretation Comments RDW (test code = RDW) 18.9 11.5-14.5 [facility] McAllenWpybmdgFNIUKFHNJZ7781-94-37 05:45:00 Test Item Value Reference Range Interpretation Comments Platelet (test code = Platelet) 257 133-450 [facility] McAllenMjcmhhfSCHHRMCUQW1498-53-82 05:45:00 Test Item Value Reference Range Interpretation Comments MPV (test code = MPV) 8.6 7.4-10.4 [place] [address]-05-14 05:45:00 Test Item Value Reference Range Interpretation Comments Glucose Lvl (test code = Glucose Lvl) 88 70-99 [place] [address]-05-14 05:45:00 Test Item Value Reference Range Interpretation Comments BUN (test code = BUN) 12 7-22 [place] [address]-05-14 05:45:00 Test Item Value Reference Range Interpretation Comments Creatinine Lvl (test code = Creatinine 0.79 0.50-1.40 Lvl) [place] [address]-05-14 05:45:00 Test Item Value Reference Range Interpretation Comments Sodium Lvl (test code = Sodium Lvl) 142 135-145 [place] 665472-05-14 05:45:00 Test Item Value Reference Range Interpretation Comments Potassium Lvl (test code = Potassium 3.4 3.5-5.1 Lvl) [place] 665472-05-14 05:45:00 Test Item Value Reference Range Interpretation Comments Chloride Lvl (test code = Chloride Lvl) 110 95-109 [place] 665472-05-14 05:45:00 Test Item Value Reference Range Interpretation Comments CO2 (test code = CO2) 27 24-32 [place] 665472-05-14 05:45:00 Test Item Value Reference Range Interpretation Comments Calcium Lvl (test code = Calcium Lvl) 8.6 8.5-10.5 [place] 665472-05-14 05:45:00 Test Item Value Reference Range Interpretation Comments AGAP (test code = AGAP) 8.4 10.0-20.0 [place] [address]-05-14 05:45:00 Test Item Value Reference Range Interpretation Comments eGFR (test code = eGFR) 100 [place] [address]-05-14 05:45:00 Test Item Value Reference Range Interpretation Comments Segs (test code = Segs) 59.2 45.0-75.0 [place] [address]-05-14 05:45:00 Test Item Value Reference Range Interpretation Comments Lymphocytes (test code = Lymphocytes) 32.7 20.0-40.0 [place] 494382-05-14 05:45:00 Test Item Value Reference Range Interpretation Comments Monocytes (test code = Monocytes) 3.6 2.0-12.0 [facility] McAllenJvtenmqVCNRNPYVUC3796-49-13 05:45:00 Test Item Value Reference Range Interpretation Comments Eosinophils (test code = 4.3 See_Comment [A utomated message] The Eosinophils) system which ge nerated this result tra nsmitted reference range : <=4.0. The reference r yi was not used to int erpret this result as normal/abnormal . [facility] McAllenQfhsqcmJRAEXZOXTD6828-53-82 05:45:00 Test Item Value Reference Range Interpretation Comments Basophils (test code = 0.2 See_Comment [Aut omated message] The Basophils) system which ge nerated this result tra nsmitted reference range : <=1.0. The reference r yi was not used to int erpret this result as normal/abnormal . [facility] McAllenQofdmrgEPCFMSLCKA6885-61-85 05:45:00 Test Item Value Reference Range Interpretation Comments Neutrophils # (test code = Neutrophils 3.5 1.5-8.1 #) [facility] McAllenTaohwblHYQWDFDIPK5688-46-92 05:45:00 Test Item Value Reference Range Interpretation Comments Lymphocytes # (test code = Lymphocytes 1.9 1.0-5.5 #) [facility] McAllenCognrypOKVOBHZZEW3676-50-77 05:45:00 Test Item Value Reference Range Interpretation Comments Monocytes # (test code 0.2 See_Comment [Aut omated message] The = Monocytes #) system which generated this result tra nsmitted reference range : <=0.8. The reference r yi was not used to int erpret this result as normal/abnormal . [facility] McAllenBzjqzjkLALBFZVWTB7717-00-10 05:45:00 Test Item Value Reference Range Interpretation Comments Eosinophils # (test code 0.3 See_Comment [A utomated message] The = Eosinophils #) system whic h generated this result tra nsmitted reference range : <=0.5. The reference r yi was not used to int erpret this result as normal/abnormal . [facility] McAllenQrjvtumEWYTMXWHND3551-43-68 05:45:00 Test Item Value Reference Range Interpretation Comments Macrocyte (test code = 3+ *NA*(10/11/21 Macrocyte) 12:45 AM) [place] 494382-05-14 05:45:00 Test Item Value Reference Range Interpretation Comments WBC (test code = WBC) 5.9 3.7-10.4 [place] [address]-05-14 05:45:00 Test Item Value Reference Range Interpretation Comments RBC (test code = RBC) 2.56 4.70-6.10 [place] [address]-05-14 05:45:00 Test Item Value Reference Range Interpretation Comments Hgb (test code = Hgb) 10.2 14.0-18.0 [place] [address]-05-14 05:45:00 Test Item Value Reference Range Interpretation Comments Hct (test code = Hct) 28.8 42.0-54.0 [place] [address]-05-14 05:45:00 Test Item Value Reference Range Interpretation Comments MCV (test code = MCV) 112.3 80.0-94.0 [place] [address]-05-14 05:45:00 Test Item Value Reference Range Interpretation Comments MCH (test code = MCH) 39.9 pg 27.0-31.0 [place] [address]-05-14 05:45:00 Test Item Value Reference Range Interpretation Comments MCHC (test code = MCHC) 35.6 32.0-36.0 [place] [address]-05-14 05:45:00 Test Item Value Reference Range Interpretation Comments RDW (test code = RDW) 18.9 11.5-14.5 [place] [address]-05-14 05:45:00 Test Item Value Reference Range Interpretation Comments Platelet (test code = Platelet) 257 133-450 [place] [address]-05-14 05:45:00 Test Item Value Reference Range Interpretation Comments MPV (test code = MPV) 8.6 7.4-10.4 [place] 665472-05-14 05:45:00 Test Item Value Reference Range Interpretation Comments Glucose Lvl (test code = Glucose Lvl) 88 70-99 [place] 665472-05-14 05:45:00 Test Item Value Reference Range Interpretation Comments BUN (test code = BUN) 12 7-22 [place] 665472-05-14 05:45:00 Test Item Value Reference Range Interpretation Comments Creatinine Lvl (test code = Creatinine 0.79 0.50-1.40 Lvl) [place] 665472-05-14 05:45:00 Test Item Value Reference Range Interpretation Comments Sodium Lvl (test code = Sodium Lvl) 142 135-145 [place] 665472-05-14 05:45:00 Test Item Value Reference Range Interpretation Comments Potassium Lvl (test code = Potassium 3.4 3.5-5.1 Lvl) [place] 665472-05-14 05:45:00 Test Item Value Reference Range Interpretation Comments Chloride Lvl (test code = Chloride Lvl) 110 95-109 [place] 665472-05-14 05:45:00 Test Item Value Reference Range Interpretation Comments CO2 (test code = CO2) 27 24-32 [place] [address]-05-14 05:45:00 Test Item Value Reference Range Interpretation Comments Calcium Lvl (test code = Calcium Lvl) 8.6 8.5-10.5 [place] 665472-05-14 05:45:00 Test Item Value Reference Range Interpretation Comments AGAP (test code = AGAP) 8.4 10.0-20.0 [place] [address]-05-14 05:45:00 Test Item Value Reference Range Interpretation Comments eGFR (test code = eGFR) 100 [place] [address]-05-14 05:45:00 Test Item Value Reference Range Interpretation Comments Segs (test code = Segs) 59.2 45.0-75.0 [place] [address]-05-14 05:45:00 Test Item Value Reference Range Interpretation Comments Lymphocytes (test code = Lymphocytes) 32.7 20.0-40.0 [place] [address]-05-14 05:45:00 Test Item Value Reference Range Interpretation Comments Monocytes (test code = Monocytes) 3.6 2.0-12.0 [place] [address]-05-14 05:45:00 Test Item Value Reference Range Interpretation Comments Eosinophils (test code = 4.3 See_Comment [A utomated message] The Eosinophils) system which ge nerated this result tra nsmitted reference range : <=4.0. The reference r yi was not used to int erpret this result as normal/abnormal . [place] [address]-05-14 05:45:00 Test Item Value Reference Range Interpretation Comments Basophils (test code = 0.2 See_Comment [Aut omated message] The Basophils) system which ge nerated this result tra nsmitted reference range : <=1.0. The reference r yi was not used to int erpret this result as normal/abnormal . [facility] McAllenEmikaztPLEEOJQSGD2952-41-03 05:45:00 Test Item Value Reference Range Interpretation Comments Neutrophils # (test code = Neutrophils 3.5 1.5-8.1 #) [facility] McAllenIgeoqneJBZMUFHXVU2384-21-43 05:45:00 Test Item Value Reference Range Interpretation Comments Lymphocytes # (test code = Lymphocytes 1.9 1.0-5.5 #) [facility] McAllenNicrtywIZZQFDRRUM8902-92-19 05:45:00 Test Item Value Reference Range Interpretation Comments Monocytes # (test code 0.2 See_Comment [Aut omated message] The = Monocytes #) system which generated this result tra nsmitted reference range : <=0.8. The reference r yi was not used to int erpret this result as normal/abnormal . [facility] McAllenUhmhhdxOUPAEVMWXI7139-19-11 05:45:00 Test Item Value Reference Range Interpretation Comments Eosinophils # (test code 0.3 See_Comment [A utomated message] The = Eosinophils #) system whic h generated this result tra nsmitted reference range : <=0.5. The reference r yi was not used to int erpret this result as normal/abnormal . [facility] McAllenGqajdqmUDKPSTHLHV5719-87-10 05:45:00 Test Item Value Reference Range Interpretation Comments Macrocyte (test code = 3+ *NA*(10/11/21 Macrocyte) 12:45 AM) [place] 494382-05-14 05:45:00 Test Item Value Reference Range Interpretation Comments WBC (test code = WBC) 5.9 3.7-10.4 [facility] McAllenOkyshuiQFLXNCUWHD8191-71-09 05:45:00 Test Item Value Reference Range Interpretation Comments RBC (test code = RBC) 2.56 4.70-6.10 [facility] McAllenVjiahigFWQZVQAPFN4241-41-79 05:45:00 Test Item Value Reference Range Interpretation Comments Hgb (test code = Hgb) 10.2 14.0-18.0 [facility] McAllenSbadbfwWVEZZAGQJL3181-15-58 05:45:00 Test Item Value Reference Range Interpretation Comments Hct (test code = Hct) 28.8 42.0-54.0 [facility] McAllenShetfhqJXDJGCJUXG0925-33-08 05:45:00 Test Item Value Reference Range Interpretation Comments MCV (test code = MCV) 112.3 80.0-94.0 [facility] McAllenMsztaznCEFGQMCEFC7323-07-57 05:45:00 Test Item Value Reference Range Interpretation Comments MCH (test code = MCH) 39.9 pg 27.0-31.0 [facility] McAllenUqjzegoJQRZUCMCHF2686-13-31 05:45:00 Test Item Value Reference Range Interpretation Comments MCHC (test code = MCHC) 35.6 32.0-36.0 [facility] McAllenVahpirwZRPCLWVOOA0422-48-59 05:45:00 Test Item Value Reference Range Interpretation Comments RDW (test code = RDW) 18.9 11.5-14.5 [facility] McAllenNwxvneyAREECDNYYO4123-47-81 05:45:00 Test Item Value Reference Range Interpretation Comments Platelet (test code = Platelet) 257 133-450 [facility] McAllenZxtfhyrJTDBNDNIRW9029-92-43 05:45:00 Test Item Value Reference Range Interpretation Comments MPV (test code = MPV) 8.6 7.4-10.4 [facility] AND [id number] 05:01:00 Test Item Value Reference Range Interpretation Comments UA Blood (test code = Negative (10/10/21 12:01 UA Blood) AM) [facility] AND [id number] 05:01:00 Test Item Value Reference Range Interpretation Comments UA Urobilinogen (test code = UA 2.0 0.1-1.0 Urobilinogen) [facility] AND [id number] 05:01:00 Test Item Value Reference Range Interpretation Comments UA Nitrite (test code Negative (10/10/21 12:01 = UA Nitrite) AM) [facility] AND [id number] 05:01:00 Test Item Value Reference Range Interpretation Comments UA Leuk Est (test Negative (10/10/21 12:01 code = UA Leuk Est) AM) [facility] AND [id number] 05:01:00 Test Item Value Reference Range Interpretation Comments UA WBC (test code = 5 See_Comment [Automa shukri message] The UA WBC) system which ge nerated this result transmit shukri reference range : <=5. The reference range was not used to interpr et this result as aurora l/abnormal. [facility] [id number] 05:01:00 Test Item Value Reference Range Interpretation Comments UA RBC (test code = 1 See_Comment [Automa shukri message] The UA RBC) system which ge nerated this result transmit shukri reference range : <=2. The reference range was not used to interpr et this result as aurora l/abnormal. [facility] [id number] 05:01:00 Test Item Value Reference Range Interpretation Comments UA Bacteria (test code = UA Occasional /HPF Bacteria) [facility] [id number] 05:01:00 Test Item Value Reference Range Interpretation Comments UA Mucus (test code = UA Mucus) Few /LPF [facility] [id number] 05:01:00 Test Item Value Reference Range Interpretation Comments UA Sq Epi (test code = UA Sq Epi) None [facility]en [facility] [id number] 05:01:00 Test Item Value Reference Range Interpretation Comments UA Glucose (test code = UA Glucose) 50mg/dl [facility] PayLe[employer]CARA[employer] Pharm[employer]AC [id number] 05:01:00 Test Item Value Reference Range Interpretation Comments HS Troponin I 1 Hr (test code = HS 4 Troponin I 1 Hr) [facility] [employer] VoiceannCARDIAC [id number] 05:01:00 Test Item Value Reference Range Interpretation Comments HS Troponin I 0 to 1 See Note 4(10/10/21 Hour Delta (test code = 12:01 AM) HS Troponin I 0 to 1 Hour Delta) [facility] [employer] [id number] 05:01:00 Test Item Value Reference Range Interpretation Comments Magnesium Lvl (test code = Magnesium 2.2 1.8-2.4 Lvl) [facility] [employer] [id number] 05:01:00 Test Item Value Reference Range Interpretation Comments Phosphorus (test code = Phosphorus) 4.2 2.5-4.5 [facility] [employer] [id number] 05:01:00 Test Item Value Reference Range Interpretation Comments Glucose Lvl (test code = Glucose Lvl) 109 70-99 [facility] [employer] [id number] 05:01:00 Test Item Value Reference Range Interpretation Comments BUN (test code = BUN) 13 7-22 [place] 665472-05-13 05:01:00 Test Item Value Reference Range Interpretation Comments Creatinine Lvl (test code = Creatinine 0.80 0.50-1.40 Lvl) [place] 665472-05-13 05:01:00 Test Item Value Reference Range Interpretation Comments Sodium Lvl (test code = Sodium Lvl) 138 135-145 [place] 665472-05-13 05:01:00 Test Item Value Reference Range Interpretation Comments Potassium Lvl (test code = Potassium 4.2 3.5-5.1 Lvl) [place] 665472-05-13 05:01:00 Test Item Value Reference Range Interpretation Comments Chloride Lvl (test code = Chloride Lvl) 106 95-109 [place] 665472-05-13 05:01:00 Test Item Value Reference Range Interpretation Comments CO2 (test code = CO2) 24 24-32 [place] 665472-05-13 05:01:00 Test Item Value Reference Range Interpretation Comments Calcium Lvl (test code = Calcium Lvl) 8.2 8.5-10.5 [place] 665472-05-13 05:01:00 Test Item Value Reference Range Interpretation Comments AGAP (test code = AGAP) 12.2 10.0-20.0 [place] 665472-05-13 05:01:00 Test Item Value Reference Range Interpretation Comments eGFR (test code = eGFR) 100 [place] 494382-05-13 05:01:00 Test Item Value Reference Range Interpretation Comments Segs (test code = Segs) 84.5 45.0-75.0 [place] 494382-05-13 05:01:00 Test Item Value Reference Range Interpretation Comments Lymphocytes (test code = Lymphocytes) 12.2 20.0-40.0 [place] 494382-05-13 05:01:00 Test Item Value Reference Range Interpretation Comments Monocytes (test code = Monocytes) 3.2 2.0-12.0 [place] 494382-05-13 05:01:00 Test Item Value Reference Range Interpretation Comments Basophils (test code = 0.1 See_Comment [Aut omated message] The Basophils) system which ge nerated this result tra nsmitted reference range : <=1.0. The reference r yi was not used to int erpret this result as normal/abnormal . [facility] McAllenWlayrnfABIBLUDPCA6417-22-42 05:01:00 Test Item Value Reference Range Interpretation Comments Neutrophils # (test code = Neutrophils 7.7 1.5-8.1 #) [facility] McAllenExjrcjxVSDBJJEXML6180-38-93 05:01:00 Test Item Value Reference Range Interpretation Comments Lymphocytes # (test code = Lymphocytes 1.1 1.0-5.5 #) [facility] McAllenPprugcwVRJKDXRXEG1973-83-84 05:01:00 Test Item Value Reference Range Interpretation Comments Monocytes # (test code 0.3 See_Comment [Aut omated message] The = Monocytes #) system which generated this result tra nsmitted reference range : <=0.8. The reference r yi was not used to int erpret this result as normal/abnormal . [facility] McAllenCofhqcbTHZADCISQW2908-07-64 05:01:00 Test Item Value Reference Range Interpretation Comments Macrocyte (test code = 3+ *NA*(10/10/21 Macrocyte) 12:01 AM) [facility] McAllenPihpcydAPZKHAZELK7308-19-94 05:01:00 Test Item Value Reference Range Interpretation Comments WBC (test code = WBC) 9.1 3.7-10.4 [facility] McAllenSziavyqEXWWMJYUTW1180-54-91 05:01:00 Test Item Value Reference Range Interpretation Comments RBC (test code = RBC) 2.94 4.70-6.10 [facility] McAllenNuehgdmNRCGYCBIMZ9440-23-37 05:01:00 Test Item Value Reference Range Interpretation Comments Hgb (test code = Hgb) 11.6 14.0-18.0 [facility] McAllenBnpjqftIOBELXOLOU7358-44-52 05:01:00 Test Item Value Reference Range Interpretation Comments Hct (test code = Hct) 33.0 42.0-54.0 [facility] McAllenZsjdelwTVHUERFQJM2107-47-82 05:01:00 Test Item Value Reference Range Interpretation Comments MCV (test code = MCV) 112.4 80.0-94.0 [place] 494382-05-13 05:01:00 Test Item Value Reference Range Interpretation Comments MCH (test code = MCH) 39.5 pg 27.0-31.0 [facility] McAllenScdzskoEGVPLRKIGR8678-38-68 05:01:00 Test Item Value Reference Range Interpretation Comments MCHC (test code = MCHC) 35.1 32.0-36.0 [facility]WLVW7736-[facility]-23 05:01:00 Test Item Value Reference Range Interpretation Comments RDW (test code = RDW) 18.1 11.5-14.5 [facility]DmyrammDZBREYLZXA9820-23-03 05:01:00 Test Item Value Reference Range Interpretation Comments Platelet (test code = Platelet) 274 133-450 [facility] BthycteISHABSUHLL7274-68-29 05:01:00 Test Item Value Reference Range Interpretation Comments MPV (test code = MPV) 8.7 7.4-10.4 [facility] [id number] 05:01:00 Test Item Value Reference Range Interpretation Comments Ca Ion WB (test code = Ca Ion WB) 1.10 1.05-1.25 [facility] [id number] 05:01:00 Test Item Value Reference Range Interpretation Comments Ca Ion at pH 7.4 WB (test code = Ca Ion 1.06 1.05-1.25 at pH 7.4 WB) [facility] AND [id number] 05:01:00 Test Item Value Reference Range Interpretation Comments UA Color (test code = Yellow *NA*(10/10/21 UA Color) 12:01 AM) [facility] AND [id number] 05:01:00 Test Item Value Reference Range Interpretation Comments UA Turbidity (test code = Clear (10/10/21 12:01 UA Turbidity) AM) [facility] AND [id number] 05:01:00 Test Item Value Reference Range Interpretation Comments UA Spec Grav (test code = UA Spec 1.031 1 Grav) [facility] AND [id number] 05:01:00 Test Item Value Reference Range Interpretation Comments UA pH (test code = UA pH) 5.0 1 5.0-8.0 [facility] AND [id number] 05:01:00 Test Item Value Reference Range Interpretation Comments UA Protein (test code = UA Negative mg/dL Protein) [facility] AND [id number] 05:01:00 Test Item Value Reference Range Interpretation Comments UA Ketones (test code = UA Ketones) 80 mg/dL [facility] [id number] 05:01:00 Test Item Value Reference Range Interpretation Comments UA Bili (test code = Negative *NA*(10/10/21 UA Bili) 12:01 AM) [facility] [id number] 05:01:00 Test Item Value Reference Range Interpretation Comments UA Blood (test code = Negative (10/10/21 12:01 UA Blood) AM) [facility] [id number] 05:01:00 Test Item Value Reference Range Interpretation Comments UA Urobilinogen (test code = UA 2.0 0.1-1.0 Urobilinogen) [facility] [id number] 05:01:00 Test Item Value Reference Range Interpretation Comments UA Nitrite (test code Negative (10/10/21 12:01 = UA Nitrite) AM) [facility] [id number] 05:01:00 Test Item Value Reference Range Interpretation Comments UA Leuk Est (test Negative (10/10/21 12:01 code = UA Leuk Est) AM) [facility] [id number] 05:01:00 Test Item Value Reference Range Interpretation Comments UA WBC (test code = 5 See_Comment [Automa shukri message] The UA WBC) system which ge nerated this result transmit shukri reference range : <=5. The reference range was not used to interpr et this result as aurora l/abnormal. [facility] [id number] 05:01:00 Test Item Value Reference Range Interpretation Comments UA RBC (test code = 1 See_Comment [Automa shukri message] The UA RBC) system which ge nerated this result transmit shukri reference range : <=2. The reference range was not used to interpr et this result as aurora l/abnormal. [facility] [id number] 05:01:00 Test Item Value Reference Range Interpretation Comments UA Bacteria (test code = UA Occasional /HPF Bacteria) [facility] [id number] 05:01:00 Test Item Value Reference Range Interpretation Comments UA Mucus (test code = UA Mucus) Few /LPF [facility] [id number] 05:01:00 Test Item Value Reference Range Interpretation Comments UA Sq Epi (test code = UA Sq Epi) None Seen [facility] AND [id number] 05:01:00 Test Item Value Reference Range Interpretation Comments UA Glucose (test code = UA Glucose) 50mg/dl [facility] [id number] 05:01:00 Test Item Value Reference Range Interpretation Comments HS Troponin I 1 Hr (test code = HS 4 Troponin I 1 Hr) [facility] [id number] 05:01:00 Test Item Value Reference Range Interpretation Comments HS Troponin I 0 to 1 See Note 4(10/10/21 Hour Delta (test code = 12:01 AM) HS Troponin I 0 to 1 Hour Delta) [facility] [id number] 05:01:00 Test Item Value Reference Range Interpretation Comments Magnesium Lvl (test code = Magnesium 2.2 1.8-2.4 Lvl) [facility]2022-05-13 05:01:00 Test Item Value Reference Range Interpretation Comments Phosphorus (test code = Phosphorus) 4.2 2.5-4.5 [facility] [id number] 05:01:00 Test Item Value Reference Range Interpretation Comments Glucose Lvl (test code = Glucose Lvl) 109 70-99 [facility] [id number] 05:01:00 Test Item Value Reference Range Interpretation Comments BUN (test code = BUN) 12-19 [facility]2022-05-13 05:01:00 Test Item Value Reference Range Interpretation Comments Creatinine Lvl (test code = Creatinine 0.80 0.50-1.40 Lvl) [facility] [id number] 05:01:00 Test Item Value Reference Range Interpretation Comments Sodium Lvl (test code = Sodium Lvl) 138 135-145 [facility] [id number] 05:01:00 Test Item Value Reference Range Interpretation Comments Potassium Lvl (test code = Potassium 4.2 3.5-5.1 Lvl) [facility] [id number] 05:01:00 Test Item Value Reference Range Interpretation Comments Chloride Lvl (test code = Chloride Lvl) 106 95-109 [facility] [id number] 05:01:00 Test Item Value Reference Range Interpretation Comments CO2 (test code = CO2) 24 24-32 [place] 665472-05-13 05:01:00 Test Item Value Reference Range Interpretation Comments Calcium Lvl (test code = Calcium Lvl) 8.2 8.5-10.5 [place] 665472-05-13 05:01:00 Test Item Value Reference Range Interpretation Comments AGAP (test code = AGAP) 12.2 10.0-20.0 [place] 665472-05-13 05:01:00 Test Item Value Reference Range Interpretation Comments eGFR (test code = eGFR) 100 [place] 494382-05-13 05:01:00 Test Item Value Reference Range Interpretation Comments Segs (test code = Segs) 84.5 45.0-75.0 [place] [address]-05-13 05:01:00 Test Item Value Reference Range Interpretation Comments Lymphocytes (test code = Lymphocytes) 12.2 20.0-40.0 [place] 494382-05-13 05:01:00 Test Item Value Reference Range Interpretation Comments Monocytes (test code = Monocytes) 3.2 2.0-12.0 [place] [address]-05-13 05:01:00 Test Item Value Reference Range Interpretation Comments Basophils (test code = 0.1 See_Comment [Aut omated message] The Basophils) system which ge nerated this result tra nsmitted reference range : <=1.0. The reference r yi was not used to int erpret this result as normal/abnormal . [place] [address]-05-13 05:01:00 Test Item Value Reference Range Interpretation Comments Neutrophils # (test code = Neutrophils 7.7 1.5-8.1 #) [place] [address]-05-13 05:01:00 Test Item Value Reference Range Interpretation Comments Lymphocytes # (test code = Lymphocytes 1.1 1.0-5.5 #) [place] [address]-05-13 05:01:00 Test Item Value Reference Range Interpretation Comments Monocytes # (test code 0.3 See_Comment [Aut omated message] The = Monocytes #) system which generated this result tra nsmitted reference range : <=0.8. The reference r yi was not used to int erpret this result as normal/abnormal . [place] [address]-05-13 05:01:00 Test Item Value Reference Range Interpretation Comments Macrocyte (test code = 3+ *NA*(10/10/21 Macrocyte) 12:01 AM) [id number] 05:01:00 Test Item Value Reference Range Interpretation Comments WBC (test code = WBC) 9.1 3.7-10.4 [facility] McAllenIhrkthiPSTFDGQMYZ4518-13-51 05:01:00 Test Item Value Reference Range Interpretation Comments RBC (test code = RBC) 2.94 4.70-6.10 [facility] McAllenIizwbuuOZMOCMMIPP0273-66-84 05:01:00 Test Item Value Reference Range Interpretation Comments Hgb (test code = Hgb) 11.6 14.0-18.0 [facility] McAllenZmlhtmbVIFHBYYVRQ6054-30-46 05:01:00 Test Item Value Reference Range Interpretation Comments Hct (test code = Hct) 33.0 42.0-54.0 [facility] McAllenCxcmqooWCJAMGORIL7754-79-68 05:01:00 Test Item Value Reference Range Interpretation Comments MCV (test code = MCV) 112.4 80.0-94.0 [facility] McAllenJijctpeTFJNCPQCUR4533-74-37 05:01:00 Test Item Value Reference Range Interpretation Comments MCH (test code = MCH) 39.5 pg 27.0-31.0 [facility] McAllenRtqeqfzHWCXPNTWHV9716-25-09 05:01:00 Test Item Value Reference Range Interpretation Comments MCHC (test code = MCHC) 35.1 32.0-36.0 [facility] McAllenWrvdmzjMZDGXOWUBB1270-40-07 05:01:00 Test Item Value Reference Range Interpretation Comments RDW (test code = RDW) 18.1 11.5-14.5 [facility] McAllenUnawtluVALMMGVEQB2927-18-47 05:01:00 Test Item Value Reference Range Interpretation Comments Platelet (test code = Platelet) 274 133-450 [facility] McAllenOsendlpNOMQNNSLUC5068-31-78 05:01:00 Test Item Value Reference Range Interpretation Comments MPV (test code = MPV) 8.7 7.4-10.4 [facility] [id number] 05:01:00 Test Item Value Reference Range Interpretation Comments Ca Ion WB (test code = Ca Ion WB) 1.10 1.05-1.25 [facility] [id number] 05:01:00 Test Item Value Reference Range Interpretation Comments Ca Ion at pH 7.4 WB (test code = Ca Ion 1.06 1.05-1.25 at pH 7.4 WB) [facility] [id number] 05:01:00 Test Item Value Reference Range Interpretation Comments UA Color (test code = Yellow *NA*(10/10/21 UA Color) 12:01 AM) [facility] [id number] 05:01:00 Test Item Value Reference Range Interpretation Comments UA Turbidity (test code = Clear (10/10/21 12:01 UA Turbidity) AM) [facility] [id number] 05:01:00 Test Item Value Reference Range Interpretation Comments UA Spec Grav (test code = UA Spec 1.031 1 Grav) [facility] [id number] 05:01:00 Test Item Value Reference Range Interpretation Comments UA pH (test code = UA pH) 5.0 1 5.0-8.0 [facility] [id number] 05:01:00 Test Item Value Reference Range Interpretation Comments UA Protein (test code = UA Negative mg/dL Protein) [facility] [id number] 05:01:00 Test Item Value Reference Range Interpretation Comments UA Ketones (test code = UA Ketones) 80 mg/dL [facility] [id number] 05:01:00 Test Item Value Reference Range Interpretation Comments UA Bili (test code = Negative *NA*(10/10/21 UA Bili) 12:01 AM) [facility] [id number] 05:01:00 Test Item Value Reference Range Interpretation Comments HS Troponin I 1 Hr (test code = HS 4 Troponin I 1 Hr) [facility] [id number] 05:01:00 Test Item Value Reference Range Interpretation Comments HS Troponin I 0 to 1 See Note 4(10/10/21 Hour Delta (test code = 12:01 AM) HS Troponin I 0 to 1 Hour Delta) [facility] [employer] [id number] 05:01:00 Test Item Value Reference Range Interpretation Comments Magnesium Lvl (test code = Magnesium 2.2 1.8-2.4 Lvl) [facility] [employer] [id number] 05:01:00 Test Item Value Reference Range Interpretation Comments Phosphorus (test code = Phosphorus) 4.2 2.5-4.5 [place] 665472-05-13 05:01:00 Test Item Value Reference Range Interpretation Comments Glucose Lvl (test code = Glucose Lvl) 109 70-99 [place] 665472-05-13 05:01:00 Test Item Value Reference Range Interpretation Comments BUN (test code = BUN) 13 7-22 [place] 665472-05-13 05:01:00 Test Item Value Reference Range Interpretation Comments Creatinine Lvl (test code = Creatinine 0.80 0.50-1.40 Lvl) [place] 665472-05-13 05:01:00 Test Item Value Reference Range Interpretation Comments Sodium Lvl (test code = Sodium Lvl) 138 135-145 [place] 665472-05-13 05:01:00 Test Item Value Reference Range Interpretation Comments Potassium Lvl (test code = Potassium 4.2 3.5-5.1 Lvl) [place] 665472-05-13 05:01:00 Test Item Value Reference Range Interpretation Comments Chloride Lvl (test code = Chloride Lvl) 106 95-109 [place] 665472-05-13 05:01:00 Test Item Value Reference Range Interpretation Comments CO2 (test code = CO2) 24 24-32 [facility]2022-05-13 05:01:00 Test Item Value Reference Range Interpretation Comments Calcium Lvl (test code = Calcium Lvl) 8.2 8.5-10.5 [facility]2022-05-13 05:01:00 Test Item Value Reference Range Interpretation Comments AGAP (test code = AGAP) 12.2 10.0-20.0 [place] 665472-05-13 05:01:00 Test Item Value Reference Range Interpretation Comments eGFR (test code = eGFR) 100 [facility] McAllenDptvksxWRUCXWKXSS8102-80-40 05:01:00 Test Item Value Reference Range Interpretation Comments Segs (test code = Segs) 84.5 45.0-75.0 [place] 494382-05-13 05:01:00 Test Item Value Reference Range Interpretation Comments Lymphocytes (test code = Lymphocytes) 12.2 20.0-40.0 [place] 494382-05-13 05:01:00 Test Item Value Reference Range Interpretation Comments Monocytes (test code = Monocytes) 3.2 2.0-12.0 [facility] McAllenKsakmtoEGAFGLLOAX5288-60-68 05:01:00 Test Item Value Reference Range Interpretation Comments Basophils (test code = 0.1 See_Comment [Aut omated message] The Basophils) system which ge nerated this result tra nsmitted reference range : <=1.0. The reference r yi was not used to int erpret this result as normal/abnormal . [facility] McAllenVvwcasaRYBZGOUKHE6177-40-57 05:01:00 Test Item Value Reference Range Interpretation Comments Neutrophils # (test code = Neutrophils 7.7 1.5-8.1 #) [facility] McAllenCczrnrgXHSIVESUQX2673-43-70 05:01:00 Test Item Value Reference Range Interpretation Comments Lymphocytes # (test code = Lymphocytes 1.1 1.0-5.5 #) [facility] McAllenIjmrmvdQCXRNNMOWR7151-79-93 05:01:00 Test Item Value Reference Range Interpretation Comments Monocytes # (test code 0.3 See_Comment [Aut omated message] The = Monocytes #) system which generated this result tra nsmitted reference range : <=0.8. The reference r yi was not used to int erpret this result as normal/abnormal . [facility] McAllenUjumsyyKDVGHTKRSC1460-54-83 05:01:00 Test Item Value Reference Range Interpretation Comments Macrocyte (test code = 3+ *NA*(10/10/21 Macrocyte) 12:01 AM) [facility] McAllenXiqgywhSSCIRIVLPO5949-15-69 05:01:00 Test Item Value Reference Range Interpretation Comments WBC (test code = WBC) 9.1 3.7-10.4 [facility] McAllenLhgieduWRBZVJUKSX2590-57-02 05:01:00 Test Item Value Reference Range Interpretation Comments RBC (test code = RBC) 2.94 4.70-6.10 [facility] McAllenPhzwxuiSWUVFAEJTQ9357-04-38 05:01:00 Test Item Value Reference Range Interpretation Comments Hgb (test code = Hgb) 11.6 14.0-18.0 [place] 494382-05-13 05:01:00 Test Item Value Reference Range Interpretation Comments Hct (test code = Hct) 33.0 42.0-54.0 [facility] McAllenLpmxdjbBGCDIOPPXJ7087-70-83 05:01:00 Test Item Value Reference Range Interpretation Comments MCV (test code = MCV) 112.4 80.0-94.0 [facility]NigbldbTBUBWWWZKA6621-45-56 05:01:00 Test Item Value Reference Range Interpretation Comments MCH (test code = MCH) 39.5 pg 27.0-31.0 [facility] JruzrsuOLIMVWQJXD7816-86-28 05:01:00 Test Item Value Reference Range Interpretation Comments MCHC (test code = MCHC) 35.1 32.0-36.0 [facility] HospitalZiunrioJJCACXKLOV3083-63-09 05:01:00 Test Item Value Reference Range Interpretation Comments RDW (test code = RDW) 18.1 11.5-14.5 [facility] HospitalIlvdfokFJDNBLZWMM7223-26-73 05:01:00 Test Item Value Reference Range Interpretation Comments Platelet (test code = Platelet) 274 133-450 [facility]QpwqiowFUEHUKDWMR9884-65-22 05:01:00 Test Item Value Reference Range Interpretation Comments MPV (test code = MPV) 8.7 7.4-10.4 [facility]annPARATHYROID [id number] 05:01:00 Test Item Value Reference Range Interpretation Comments Ca Ion WB (test code = Ca Ion WB) 1.10 1.05-1.25 [facility]PAR[facility] [id number] 05:01:00 Test Item Value Reference Range Interpretation Comments Ca Ion at pH 7.4 WB (test code = Ca Ion 1.06 1.05-1.25 at pH 7.4 WB) [facility] [id number] 05:01:00 Test Item Value Reference Range Interpretation Comments UA Color (test code = Yellow *NA*(10/10/21 UA Color) 12:01 AM) [facility] [id number] 05:01:00 Test Item Value Reference Range Interpretation Comments UA Turbidity (test code = Clear (10/10/21 12:01 UA Turbidity) AM) [facility] [id number] 05:01:00 Test Item Value Reference Range Interpretation Comments UA Spec Grav (test code = UA Spec 1.031 1 Grav) [facility] [id number] 05:01:00 Test Item Value Reference Range Interpretation Comments UA pH (test code = UA pH) 5.0 1 5.0-8.0 [facility] [id number] 05:01:00 Test Item Value Reference Range Interpretation Comments UA Protein (test code = UA Negative mg/dL Protein) [facility] [id number] 05:01:00 Test Item Value Reference Range Interpretation Comments UA Ketones (test code = UA Ketones) 80 mg/dL [facility] [id number] 05:01:00 Test Item Value Reference Range Interpretation Comments UA Bili (test code = Negative *NA*(10/10/21 UA Bili) 12:01 AM) [facility] [id number] 05:01:00 Test Item Value Reference Range Interpretation Comments UA Blood (test code = Negative (10/10/21 12:01 UA Blood) AM) [facility] AND [id number] 05:01:00 Test Item Value Reference Range Interpretation Comments UA Urobilinogen (test code = UA 2.0 0.1-1.0 Urobilinogen) [facility] [id number] 05:01:00 Test Item Value Reference Range Interpretation Comments UA Nitrite (test code Negative (10/10/21 12:01 = UA Nitrite) AM) [facility] AND [id number] 05:01:00 Test Item Value Reference Range Interpretation Comments UA Leuk Est (test Negative (10/10/21 12:01 code = UA Leuk Est) AM) [facility] AND [id number] 05:01:00 Test Item Value Reference Range Interpretation Comments UA WBC (test code = 5 See_Comment [Automa shukri message] The UA WBC) system which ge nerated this result transmit shukri reference range : <=5. The reference range was not used to interpr et this result as aurora l/abnormal. [facility] [id number] 05:01:00 Test Item Value Reference Range Interpretation Comments UA RBC (test code = 1 See_Comment [Automa shukri message] The UA RBC) system which ge nerated this result transmit shukri reference range : <=2. The reference range was not used to interpr et this result as aurora l/abnormal. [facility] AND [id number] 05:01:00 Test Item Value Reference Range Interpretation Comments UA Bacteria (test code = UA Occasional /HPF Bacteria) [facility] AND [id number] 05:01:00 Test Item Value Reference Range Interpretation Comments UA Mucus (test code = UA Mucus) Few /LPF [facility] AND [id number] 05:01:00 Test Item Value Reference Range Interpretation Comments UA Sq Epi (test code = UA Sq Epi) None Seen [facility] AND [id number] 05:01:00 Test Item Value Reference Range Interpretation Comments UA Glucose (test code = UA Glucose) 50mg/dl [facility] [id number] 02:26:00 Test Item Value Reference Range Interpretation Comments HS Troponin I Baseline (test code = HS 4 Troponin I Baseline) [facility] [id number] 02:26:00 Test Item Value Reference Range Interpretation Comments HS Troponin I Baseline (test code = HS 4 Troponin I Baseline) [facility] [id number] 02:26:00 Test Item Value Reference Range Interpretation Comments HS Troponin I Baseline (test code = HS 4 Troponin I Baseline) [facility] [id number] 20:54:00 Test Item Value Reference Range Interpretation Comments Glucose Lvl (test code = Glucose Lvl) 118 70-99 [facility]2022-05-12 20:54:00 Test Item Value Reference Range Interpretation Comments BUN (test code = BUN) 12 7-22 [facility]2022-05-12 20:54:00 Test Item Value Reference Range Interpretation Comments Creatinine Lvl (test code = Creatinine 0.75 0.50-1.40 Lvl) [facility] [id number] 20:54:00 Test Item Value Reference Range Interpretation Comments Sodium Lvl (test code = Sodium Lvl) 138 135-145 [facility] [id number] 20:54:00 Test Item Value Reference Range Interpretation Comments Potassium Lvl (test code = Potassium 3.9 3.5-5.1 Lvl) [facility]2022-05-12 20:54:00 Test Item Value Reference Range Interpretation Comments Chloride Lvl (test code = Chloride Lvl) 105 95-109 [facility]2022-05-12 20:54:00 Test Item Value Reference Range Interpretation Comments CO2 (test code = CO2) 25 24-32 [place] 665472-05-12 20:54:00 Test Item Value Reference Range Interpretation Comments AGAP (test code = AGAP) 11.9 10.0-20.0 [place] 665472-05-12 20:54:00 Test Item Value Reference Range Interpretation Comments Calcium Lvl (test code = Calcium Lvl) 7.9 8.5-10.5 [place] [address]-05-12 20:54:00 Test Item Value Reference Range Interpretation Comments B/C Ratio (test code = B/C Ratio) 16 1 6-25 [place] [address]-05-12 20:54:00 Test Item Value Reference Range Interpretation Comments Total Protein (test code = Total 6.5 6.4-8.4 Protein) [address]05-12 20:54:00 Test Item Value Reference Range Interpretation Comments Albumin Lvl (test code = Albumin Lvl) 3.4 3.5-5.0 [place] [address]-05-12 20:54:00 Test Item Value Reference Range Interpretation Comments Globulin (test code = Globulin) 3.1 2.7-4.2 [place] [address]-05-12 20:54:00 Test Item Value Reference Range Interpretation Comments A/G Ratio (test code = A/G Ratio) 1.1 1 0.7-1.[address]05-12 20:54:00 Test Item Value Reference Range Interpretation Comments ALT (test code = ALT) 17 See_Comment [Auto mated message] The system which ge nerated this result transmit shukri reference range : <=65. The reference range was not used to interpr et this result as aurora l/abnormal. [facility] [id number] 20:54:00 Test Item Value Reference Range Interpretation Comments AST (test code = AST) 16 See_Comment [Auto mated message] The system which ge nerated this result transmit shukri reference range : <=37. The reference range was not used to interpr et this result as aurora l/abnormal. [facility] [id number] 20:54:00 Test Item Value Reference Range Interpretation Comments Alk Phos (test code = Alk Phos) 75 39-136 [place] 665472-05-12 20:54:00 Test Item Value Reference Range Interpretation Comments Bili Total (test code = Bili Total) 0.9 0.2-1.3 [place] [address]-05-12 20:54:00 Test Item Value Reference Range Interpretation Comments eGFR (test code = eGFR) 102 [place] [address]-05-12 20:54:00 Test Item Value Reference Range Interpretation Comments Magnesium Lvl (test code = Magnesium 2.1 1.8-2.4 Lvl) [place] [address]-05-12 20:54:00 Test Item Value Reference Range Interpretation Comments Phosphorus (test code = Phosphorus) 3.8 2.5-4.5 [place] [address]-05-12 20:54:00 Test Item Value Reference Range Interpretation Comments WBC (test code = WBC) 6.4 3.7-10.4 [place] [address]-05-12 20:54:00 Test Item Value Reference Range Interpretation Comments RBC (test code = RBC) 2.54 4.70-6.10 [place] [address]-05-12 20:54:00 Test Item Value Reference Range Interpretation Comments Hgb (test code = Hgb) 10.1 14.0-18.0 [place] [address]-05-12 20:54:00 Test Item Value Reference Range Interpretation Comments Hct (test code = Hct) 28.7 42.0-54.0 [place] [address]-05-12 20:54:00 Test Item Value Reference Range Interpretation Comments MCV (test code = MCV) 113.0 80.0-94.0 [place] [address]-05-12 20:54:00 Test Item Value Reference Range Interpretation Comments MCH (test code = MCH) 39.6 pg 27.0-31.0 [place] [address]-05-12 20:54:00 Test Item Value Reference Range Interpretation Comments MCHC (test code = MCHC) 35.0 32.0-36.0 [place] [address]-05-12 20:54:00 Test Item Value Reference Range Interpretation Comments RDW (test code = RDW) 18.7 11.5-14.5 [place] [address]-05-12 20:54:00 Test Item Value Reference Range Interpretation Comments Platelet (test code = Platelet) 244 133-450 [place] 494382-05-12 20:54:00 Test Item Value Reference Range Interpretation Comments MPV (test code = MPV) 8.7 7.4-10.4 [place] [address]-05-12 20:54:00 Test Item Value Reference Range Interpretation Comments Segs (test code = Segs) 87.6 45.0-75.0 [place] [address]-05-12 20:54:00 Test Item Value Reference Range Interpretation Comments Lymphocytes (test code = Lymphocytes) 10.2 20.0-40.0 [place] [address]-05-12 20:54:00 Test Item Value Reference Range Interpretation Comments Monocytes (test code = Monocytes) 1.5 2.0-12.0 [place] [address]-05-12 20:54:00 Test Item Value Reference Range Interpretation Comments Eosinophils (test code = 0.5 See_Comment [A utomated message] The Eosinophils) system which ge nerated this result tra nsmitted reference range : <=4.0. The reference r yi was not used to int erpret this result as normal/abnormal . [place] [address]-05-12 20:54:00 Test Item Value Reference Range Interpretation Comments Basophils (test code = 0.2 See_Comment [Aut omated message] The Basophils) system which ge nerated this result tra nsmitted reference range : <=1.0. The reference r yi was not used to int erpret this result as normal/abnormal . [place]382-05-12 20:54:00 Test Item Value Reference Range Interpretation Comments Neutrophils # (test code = Neutrophils 5.6 1.5-8.1 #) [place] [address]-05-12 20:54:00 Test Item Value Reference Range Interpretation Comments Lymphocytes # (test code = Lymphocytes 0.6 1.0-5.5 #) [place] [address]-05-12 20:54:00 Test Item Value Reference Range Interpretation Comments Monocytes # (test code 0.1 See_Comment [Aut omated message] The = Monocytes #) system which generated this result tra nsmitted reference range : <=0.8. The reference r yi was not used to int erpret this result as normal/abnormal . [place]382-05-12 20:54:00 Test Item Value Reference Range Interpretation Comments Anisocyte (test code = 1+ *ABN*(10/09/21 Anisocyte) 3:54 PM) [place] [address]-05-12 20:54:00 Test Item Value Reference Range Interpretation Comments Macrocyte (test code = 2+ *ABN*(10/09/21 Macrocyte) 3:54 PM) [place]382-05-12 20:54:00 Test Item Value Reference Range Interpretation Comments Large Plt (test code = Large Plt) Slight [facility]2022-05-12 20:54:00 Test Item Value Reference Range Interpretation Comments Ca Ion WB (test code = Ca Ion WB) 1.05 1.05-1.25 [place] 103072-05-12 20:54:00 Test Item Value Reference Range Interpretation Comments Ca Ion at pH 7.4 WB (test code = Ca Ion 1.02 1.05-1.25 at pH 7.4 WB) [place] 665472-05-12 20:54:00 Test Item Value Reference Range Interpretation Comments Glucose Lvl (test code = Glucose Lvl) 118 70-99 [place] 665472-05-12 20:54:00 Test Item Value Reference Range Interpretation Comments BUN (test code = BUN) 12 - [place] 665472-05-12 20:54:00 Test Item Value Reference Range Interpretation Comments Creatinine Lvl (test code = Creatinine 0.75 0.50-1.40 Lvl) [place] 665472-05-12 20:54:00 Test Item Value Reference Range Interpretation Comments Sodium Lvl (test code = Sodium Lvl) 138 135-145 [place] 665472-05-12 20:54:00 Test Item Value Reference Range Interpretation Comments Potassium Lvl (test code = Potassium 3.9 3.5-5.1 Lvl) [place] 665472-05-12 20:54:00 Test Item Value Reference Range Interpretation Comments Chloride Lvl (test code = Chloride Lvl) 105 95-109 [place] 665472-05-12 20:54:00 Test Item Value Reference Range Interpretation Comments CO2 (test code = CO2) 25 24-32 [place] [address]-05-12 20:54:00 Test Item Value Reference Range Interpretation Comments AGAP (test code = AGAP) 11.9 10.0-20.0 [place] [address]-05-12 20:54:00 Test Item Value Reference Range Interpretation Comments Calcium Lvl (test code = Calcium Lvl) 7.9 8.5-10.5 [place] [address]-05-12 20:54:00 Test Item Value Reference Range Interpretation Comments B/C Ratio (test code = B/C Ratio) 16 1 6-25 [place] [address]-05-12 20:54:00 Test Item Value Reference Range Interpretation Comments Total Protein (test code = Total 6.5 6.4-8.4 Protein) [address]05-12 20:54:00 Test Item Value Reference Range Interpretation Comments Albumin Lvl (test code = Albumin Lvl) 3.4 3.5-5.0 [place] [address]-05-12 20:54:00 Test Item Value Reference Range Interpretation Comments Globulin (test code = Globulin) 3.1 2.7-4.2 [id number]:54:[facility] Test Item Value Reference Range Interpretation Comments A/G Ratio (test code = A/G Ratio) 1.1 1 0.7-1.[address]05-12 20:54:00 Test Item Value Reference Range Interpretation Comments ALT (test code = ALT) 17 See_Comment [Auto mated message] The system which ge nerated this result transmit shukri reference range : <=65. The reference range was not used to interpr et this result as aurora l/abnormal. [facility] [id number] 20:54:00 Test Item Value Reference Range Interpretation Comments AST (test code = AST) 16 See_Comment [Auto mated message] The system which ge nerated this result transmit shukri reference range : <=37. The reference range was not used to interpr et this result as aurora l/abnormal. [facility] [id number] 20:54:00 Test Item Value Reference Range Interpretation Comments Alk Phos (test code = Alk Phos) 75 39-136 [place] 665472-05-12 20:54:00 Test Item Value Reference Range Interpretation Comments Bili Total (test code = Bili Total) 0.9 0.2-1.3 [place] [address]-05-12 20:54:00 Test Item Value Reference Range Interpretation Comments eGFR (test code = eGFR) 102 [place] [address]-05-12 20:54:00 Test Item Value Reference Range Interpretation Comments Magnesium Lvl (test code = Magnesium 2.1 1.8-2.4 Lvl) [address]05-12 20:54:00 Test Item Value Reference Range Interpretation Comments Phosphorus (test code = Phosphorus) 3.8 2.5-4.5 [place] [address]-05-12 20:54:00 Test Item Value Reference Range Interpretation Comments WBC (test code = WBC) 6.4 3.7-10.4 [place] [address]-05-12 20:54:00 Test Item Value Reference Range Interpretation Comments RBC (test code = RBC) 2.54 4.70-6.10 [place] [address]-05-12 20:54:00 Test Item Value Reference Range Interpretation Comments Hgb (test code = Hgb) 10.1 14.0-18.0 [place] [address]-05-12 20:54:00 Test Item Value Reference Range Interpretation Comments Hct (test code = Hct) 28.7 42.0-54.0 [place] [address]-05-12 20:54:00 Test Item Value Reference Range Interpretation Comments MCV (test code = MCV) 113.0 80.0-94.0 [place] [address]-05-12 20:54:00 Test Item Value Reference Range Interpretation Comments MCH (test code = MCH) 39.6 pg 27.0-31.0 [place] [address]-05-12 20:54:00 Test Item Value Reference Range Interpretation Comments MCHC (test code = MCHC) 35.0 32.0-36.0 [place] [address]-05-12 20:54:00 Test Item Value Reference Range Interpretation Comments RDW (test code = RDW) 18.7 11.5-14.5 [place] [address]-05-12 20:54:00 Test Item Value Reference Range Interpretation Comments Platelet (test code = Platelet) 244 133-450 [place] 494382-05-12 20:54:00 Test Item Value Reference Range Interpretation Comments MPV (test code = MPV) 8.7 7.4-10.4 [place] [address]-05-12 20:54:00 Test Item Value Reference Range Interpretation Comments Segs (test code = Segs) 87.6 45.0-75.0 [place] [address]-05-12 20:54:00 Test Item Value Reference Range Interpretation Comments Lymphocytes (test code = Lymphocytes) 10.2 20.0-40.0 [place] [address]-05-12 20:54:00 Test Item Value Reference Range Interpretation Comments Monocytes (test code = Monocytes) 1.5 2.0-12.0 [place] [address]-05-12 20:54:00 Test Item Value Reference Range Interpretation Comments Eosinophils (test code = 0.5 See_Comment [A utomated message] The Eosinophils) system which ge nerated this result tra nsmitted reference range : <=4.0. The reference r yi was not used to int erpret this result as normal/abnormal . [place] 494382-05-12 20:54:00 Test Item Value Reference Range Interpretation Comments Basophils (test code = 0.2 See_Comment [Aut omated message] The Basophils) system which ge nerated this result tra nsmitted reference range : <=1.0. The reference r yi was not used to int erpret this result as normal/abnormal . [id number] 20:54:00 Test Item Value Reference Range Interpretation Comments Neutrophils # (test code = Neutrophils 5.6 1.5-8.1 #) [place] [address]-05-12 20:54:00 Test Item Value Reference Range Interpretation Comments Lymphocytes # (test code = Lymphocytes 0.6 1.0-5.5 #) [place] [address]-05-12 20:54:00 Test Item Value Reference Range Interpretation Comments Monocytes # (test code 0.1 See_Comment [Aut omated message] The = Monocytes #) system which generated this result tra nsmitted reference range : <=0.8. The reference r yi was not used to int erpret this result as normal/abnormal . [place] 494382-05-12 20:54:00 Test Item Value Reference Range Interpretation Comments Anisocyte (test code = 1+ *ABN*(10/09/21 Anisocyte) 3:54 PM) [place] [address]-05-12 20:54:00 Test Item Value Reference Range Interpretation Comments Macrocyte (test code = 2+ *ABN*(10/09/21 Macrocyte) 3:54 PM) [place] [address]-05-12 20:54:00 Test Item Value Reference Range Interpretation Comments Large Plt (test code = Large Plt) [facility]2022-05-12 20:54:00 Test Item Value Reference Range Interpretation Comments Ca Ion WB (test code = Ca Ion WB) 1.05 1.05-1.25 [place] 103072-05-12 20:54:00 Test Item Value Reference Range Interpretation Comments Ca Ion at pH 7.4 WB (test code = Ca Ion 1.02 1.05-1.25 at pH 7.4 WB) [place] 665472-05-12 20:54:00 Test Item Value Reference Range Interpretation Comments Glucose Lvl (test code = Glucose Lvl) 118 70-99 [place] 665472-05-12 20:54:00 Test Item Value Reference Range Interpretation Comments BUN (test code = BUN) 12 - [place] 665472-05-12 20:54:00 Test Item Value Reference Range Interpretation Comments Creatinine Lvl (test code = Creatinine 0.75 0.50-1.40 Lvl) [place] 665472-05-12 20:54:00 Test Item Value Reference Range Interpretation Comments Sodium Lvl (test code = Sodium Lvl) 138 135-145 [place] 665472-05-12 20:54:00 Test Item Value Reference Range Interpretation Comments Potassium Lvl (test code = Potassium 3.9 3.5-5.1 Lvl) [place] 665472-05-12 20:54:00 Test Item Value Reference Range Interpretation Comments Chloride Lvl (test code = Chloride Lvl) 105 95-109 [place] 665472-05-12 20:54:00 Test Item Value Reference Range Interpretation Comments CO2 (test code = CO2) 25 24-32 [place] [address]-05-12 20:54:00 Test Item Value Reference Range Interpretation Comments AGAP (test code = AGAP) 11.9 10.0-20.0 [place] [address]-05-12 20:54:00 Test Item Value Reference Range Interpretation Comments Calcium Lvl (test code = Calcium Lvl) 7.9 8.5-10.5 [place] [address]-05-12 20:54:00 Test Item Value Reference Range Interpretation Comments B/C Ratio (test code = B/C Ratio) 16 1 6-[address]05-12 20:54:00 Test Item Value Reference Range Interpretation Comments Total Protein (test code = Total 6.5 6.4-8.4 Protein) [address]05-12 20:54:00 Test Item Value Reference Range Interpretation Comments Albumin Lvl (test code = Albumin Lvl) 3.4 3.5-5.[address]05-12 20:54:00 Test Item Value Reference Range Interpretation Comments Globulin (test code = Globulin) 3.1 2.7-4.[address]05-12 20:54:00 Test Item Value Reference Range Interpretation Comments A/G Ratio (test code = A/G Ratio) 1.1 1 0.7-1.[address]05-12 20:54:00 Test Item Value Reference Range Interpretation Comments ALT (test code = ALT) 17 See_Comment [Auto mated message] The system which ge nerated this result transmit shukri reference range : <=65. The reference range was not used to interpr et this result as aurora l/abnormal. [address]05-12 20:54:00 Test Item Value Reference Range Interpretation Comments AST (test code = AST) 16 See_Comment [Auto mated message] The system which ge nerated this result transmit shukri reference range : <=37. The reference range was not used to interpr et this result as aurora l/abnormal. [place] [address]-05-12 20:54:00 Test Item Value Reference Range Interpretation Comments Alk Phos (test code = Alk Phos) 75 39-136 [place] [address]-05-12 20:54:00 Test Item Value Reference Range Interpretation Comments Bili Total (test code = Bili Total) 0.9 0.2-1.3 [place] [address]-05-12 20:54:00 Test Item Value Reference Range Interpretation Comments eGFR (test code = eGFR) 102 [place] [address]-05-12 20:54:00 Test Item Value Reference Range Interpretation Comments Magnesium Lvl (test code = Magnesium 2.1 1.8-2.4 Lvl) [address]05-12 20:54:00 Test Item Value Reference Range Interpretation Comments Phosphorus (test code = Phosphorus) 3.8 2.5-4.5 [place] [address]-05-12 20:54:00 Test Item Value Reference Range Interpretation Comments WBC (test code = WBC) 6.4 3.7-10.4 [place] [address]-05-12 20:54:00 Test Item Value Reference Range Interpretation Comments RBC (test code = RBC) 2.54 4.70-6.10 [place] [address]-05-12 20:54:00 Test Item Value Reference Range Interpretation Comments Hgb (test code = Hgb) 10.1 14.0-18.0 [place] [address]-05-12 20:54:00 Test Item Value Reference Range Interpretation Comments Hct (test code = Hct) 28.7 42.0-54.0 [place] [address]-05-12 20:54:00 Test Item Value Reference Range Interpretation Comments MCV (test code = MCV) 113.0 80.0-94.0 [place] [address]-05-12 20:54:00 Test Item Value Reference Range Interpretation Comments MCH (test code = MCH) 39.6 pg 27.0-31.0 [place] [address]-05-12 20:54:00 Test Item Value Reference Range Interpretation Comments MCHC (test code = MCHC) 35.0 32.0-36.0 [place] [address]-05-12 20:54:00 Test Item Value Reference Range Interpretation Comments RDW (test code = RDW) 18.7 11.5-14.5 [place] [address]-05-12 20:54:00 Test Item Value Reference Range Interpretation Comments Platelet (test code = Platelet) 244 133-450 [place] 494382-05-12 20:54:00 Test Item Value Reference Range Interpretation Comments MPV (test code = MPV) 8.7 7.4-10.4 [place] [address]-05-12 20:54:00 Test Item Value Reference Range Interpretation Comments Segs (test code = Segs) 87.6 45.0-75.0 [place] [address]-05-12 20:54:00 Test Item Value Reference Range Interpretation Comments Lymphocytes (test code = Lymphocytes) 10.2 20.0-40.0 [place] 494382-05-12 20:54:00 Test Item Value Reference Range Interpretation Comments Monocytes (test code = Monocytes) 1.5 2.0-12.0 [place] [address]-05-12 20:54:00 Test Item Value Reference Range Interpretation Comments Eosinophils (test code = 0.5 See_Comment [A utomated message] The Eosinophils) system which ge nerated this result tra nsmitted reference range : <=4.0. The reference r yi was not used to int erpret this result as normal/abnormal . [facility]yxkmreTEBLLJSBJM2844-95-06 20:54:00 Test Item Value Reference Range Interpretation Comments Basophils (test code = 0.2 See_Comment [Aut omated message] The Basophils) system which ge nerated this result tra nsmitted reference range : <=1.0. The reference r yi was not used to int erpret this result as normal/abnormal . [place] 494382-05-12 20:54:00 Test Item Value Reference Range Interpretation Comments Neutrophils # (test code = Neutrophils 5.6 1.5-8.1 #) [place] [address]-05-12 20:54:00 Test Item Value Reference Range Interpretation Comments Lymphocytes # (test code = Lymphocytes 0.6 1.0-5.5 #) [place] [address]-05-12 20:54:00 Test Item Value Reference Range Interpretation Comments Monocytes # (test code 0.1 See_Comment [Aut omated message] The = Monocytes #) system which generated this result tra nsmitted reference range : <=0.8. The reference r yi was not used to int erpret this result as normal/abnormal . [place] 494382-05-12 20:54:00 Test Item Value Reference Range Interpretation Comments Anisocyte (test code = 1+ *ABN*(10/09/21 Anisocyte) 3:54 PM) [place] [address]-05-12 20:54:00 Test Item Value Reference Range Interpretation Comments Macrocyte (test code = 2+ *ABN*(10/09/21 Macrocyte) 3:54 PM) [place] [address]-05-12 20:54:00 Test Item Value Reference Range Interpretation Comments Large Plt (test code = Large Plt) [place]light [place] 103072-05-12 20:54:00 Test Item Value Reference Range Interpretation Comments Ca Ion WB (test code = Ca Ion WB) 1.05 1.05-1.25 [place] 103072-05-12 20:54:00 Test Item Value Reference Range Interpretation Comments Ca Ion at pH 7.4 WB (test code = Ca Ion 1.02 1.05-1.25 at pH 7.4 WB) [place] [address]-05-12 11:56:00 Test Item Value Reference Range Interpretation Comments Coronavirus (COVID-19) Not Detected (10/09/21 DAVONTE (test code = 6:56 AM) Coronavirus (COVID-19) DAVONTE) [place] [address]-05-12 11:56:00 Test Item Value Reference Range Interpretation Comments Coronavirus (COVID-19) Not Detected (10/09/21 DAVONTE (test code = 6:56 AM) Coronavirus (COVID-19) DAVONTE) [place] [address]-05-12 11:56:00 Test Item Value Reference Range Interpretation Comments Coronavirus (COVID-19) Not Detected (10/09/21 DAVONTE (test code = 6:56 AM) Coronavirus (COVID-19) DAVONTE) [place] [address]-05-12 11:49:00 Test Item Value Reference Range Interpretation Comments PT (test code = PT) 13.8 s 12.0-14.7 [place] [address]-05-12 11:49:00 Test Item Value Reference Range Interpretation Comments INR (test code = INR) 1.07 1 0.85-1.17 [facility]IjwxiavHUGOUOYBFN5988-43-85 11:49:00 Test Item Value Reference Range Interpretation Comments PTT (test code = PTT) 29.3 s 22.9-35.8 [facility]AllenXuxotcyWVCYNILAKY9338-46-75 11:49:00 Test Item Value Reference Range Interpretation Comments PT (test code = PT) 13.8 s 12.0-14.7 [facility]AllenOncmtbkGPIZOIFBDI6564-12-20 11:49:00 Test Item Value Reference Range Interpretation Comments INR (test code = INR) 1.07 1 0.85-1.17 [facility]AllenRitzmctULPIIABUSS2593-30-05 11:49:00 Test Item Value Reference Range Interpretation Comments PTT (test code = PTT) 29.3 s 22.9-35.8 [facility]AllenXqbkhgfGXWQLDYHHP0455-27-64 11:49:00 Test Item Value Reference Range Interpretation Comments PT (test code = PT) 13.8 s 12.0-14.7 [facility]AllenKrdfezcFUWKQBKRXT2339-62-56 11:49:00 Test Item Value Reference Range Interpretation Comments INR (test code = INR) 1.07 1 0.85-1.17 [facility]AllenGbqjukrYLHTVRXAYH4755-59-10 11:49:00 Test Item Value Reference Range Interpretation Comments PTT (test code = PTT) 29.3 s 22.9-35.8 [facility] [id number] 11:42:00 Test Item Value Reference Range Interpretation Comments ABO/Rh (test code = ABO/Rh) O POS [facility] [id number] 11:42:00 Test Item Value Reference Range Interpretation Comments Antibody Scrn (test Negative (10/09/21 6:42 code = Antibody Scrn) AM) [facility] [employer] [id number] 11:42:00 Test Item Value Reference Range Interpretation Comments ABO/Rh (test code = ABO/Rh) O POS [facility] [employer] [id number] 11:42:00 Test Item Value Reference Range Interpretation Comments Antibody Scrn (test Negative (10/09/21 6:42 code = Antibody Scrn) AM) [facility] [employer] [id number] 11:42:00 Test Item Value Reference Range Interpretation Comments ABO/Rh (test code = ABO/Rh) O POS [facility] [id number] 11:42:00 Test Item Value Reference Range Interpretation Comments Antibody Scrn (test Negative (10/09/21 6:42 code = Antibody Scrn) AM) [facility]AllenOkijyutEHZTIUPFRI0505-20-84 11:25:43 Test Item Value Reference Range Interpretation Comments ACT (TEG) Rapid (test code = ACT (TEG) 121 s 86-118 Rapid) [facility]AllenKlobmdcWGMLYVHCXU6345-03-08 11:25:43 Test Item Value Reference Range Interpretation Comments Split Point Rapid (test code = Split 0.7 min Point Rapid) [facility]AllenOgkhphxUWPQKOBJUH9001-41-78 11:25:43 Test Item Value Reference Range Interpretation Comments R-time Rapid (test code = R-time 0.8 min 0.4-0.7 Rapid) [facility]AllenXlyffwnTSSXEYWRQO4441-61-39 11:25:43 Test Item Value Reference Range Interpretation Comments K-time Rapid (test code = K-time 0.9 min 0.6-2.3 Rapid) [facility]AllenNlxqkgfINASYPXGZU7303-26-75 11:25:43 Test Item Value Reference Range Interpretation Comments Angle Rapid (test code = Angle 78 degrees 64-80 Rapid) [facility]AllenZexiypvWHEEZRTGWL1283-88-03 11:25:43 Test Item Value Reference Range Interpretation Comments Max Amplitude Rapid (test code = Max 66 mm 52-71 Amplitude Rapid) [facility]AllenOwjwpnjCFVLSXKVTX5606-23-40 11:25:43 Test Item Value Reference Range Interpretation Comments G-value Rapid (test code = G-value 9.7 5.0-11.6 Rapid) [facility]AllenPcsmvkcAJOTJWVKTM1711-21-61 11:25:43 Test Item Value Reference Range Interpretation Comments Estimated % Lysis Rapid 1.6 See_Comment [Au tomated message] The (test code = Estimated syste m which generated % Lysis Rapid) this result t ransmitted reference range : <=7.5. The reference r yi was not used to int erpret this result as normal/abnormal . [facility] McAllenBwcmeleRGLYMXZFTX3670-79-79 11:25:43 Test Item Value Reference Range Interpretation Comments Eosinophils (test code = 4.8 See_Comment [A utomated message] The Eosinophils) system which ge nerated this result tra nsmitted reference range : <=4.0. The reference r yi was not used to int erpret this result as normal/abnormal . [place] [address]-05-12 11:25:43 Test Item Value Reference Range Interpretation Comments Eosinophils # (test code 0.2 See_Comment [A utomated message] The = Eosinophils #) system whic h generated this result tra nsmitted reference range : <=0.5. The reference r yi was not used to int erpret this result as normal/abnormal . [place] 494382-05-12 11:25:43 Test Item Value Reference Range Interpretation Comments Anisocyte (test code = 1+ *ABN*(10/09/21 Anisocyte) 6:25 AM) [place] [address]-05-12 11:25:43 Test Item Value Reference Range Interpretation Comments Large Plt (test code = Large Plt) Slight [place] [address]-05-12 11:25:43 Test Item Value Reference Range Interpretation Comments ACT (TEG) Rapid (test code = ACT (TEG) 121 s 86-118 Rapid) [place] [address]-05-12 11:25:43 Test Item Value Reference Range Interpretation Comments Split Point Rapid (test code = Split 0.7 min Point Rapid) [place] [address]-05-12 11:25:43 Test Item Value Reference Range Interpretation Comments R-time Rapid (test code = R-time 0.8 min 0.4-0.7 Rapid) [place] [address]-05-12 11:25:43 Test Item Value Reference Range Interpretation Comments K-time Rapid (test code = K-time 0.9 min 0.6-2.3 Rapid) [place] [address]-05-12 11:25:43 Test Item Value Reference Range Interpretation Comments Angle Rapid (test code = Angle 78 degrees 64-80 Rapid) [place] [address]-05-12 11:25:43 Test Item Value Reference Range Interpretation Comments Max Amplitude Rapid (test code = Max 66 mm 52-71 Amplitude Rapid) [place] [address]-05-12 11:25:43 Test Item Value Reference Range Interpretation Comments G-value Rapid (test code = G-value 9.7 5.0-11.6 Rapid) [place] [address]-05-12 11:25:43 Test Item Value Reference Range Interpretation Comments Estimated % Lysis Rapid 1.6 See_Comment [Au tomated message] The (test code = Estimated syste m which generated % Lysis Rapid) this result t ransmitted reference range : <=7.5. The reference r yi was not used to int erpret this result as normal/abnormal . [place] 494382-05-12 11:25:43 Test Item Value Reference Range Interpretation Comments Eosinophils (test code = 4.8 See_Comment [A utomated message] The Eosinophils) system which ge nerated this result tra nsmitted reference range : <=4.0. The reference r yi was not used to int erpret this result as normal/abnormal . [facility]AllenJojwvywPFJDFOFEJK7652-78-61 11:25:43 Test Item Value Reference Range Interpretation Comments Eosinophils # (test code 0.2 See_Comment [A utomated message] The = Eosinophils #) system whic h generated this result tra nsmitted reference range : <=0.5. The reference r yi was not used to int erpret this result as normal/abnormal . [facility] McAllenEfwbiwoBTKFOTHSEJ3910-16-64 11:25:43 Test Item Value Reference Range Interpretation Comments Anisocyte (test code = 1+ *ABN*(10/09/21 Anisocyte) 6:25 AM) [place] [address]-05-12 11:25:43 Test Item Value Reference Range Interpretation Comments Large Plt (test code = Large Plt) [place] [id number] 11:25:43 Test Item Value Reference Range Interpretation Comments ACT (TEG) Rapid (test code = ACT (TEG) 121 s 86-118 Rapid) [place] [id number] 11:25:43 Test Item Value Reference Range Interpretation Comments Split Point Rapid (test code = Split 0.7 min Point Rapid) [place] [address]-05-12 11:25:43 Test Item Value Reference Range Interpretation Comments R-time Rapid (test code = R-time 0.8 min 0.4-0.7 Rapid) [place] [address]-05-12 11:25:43 Test Item Value Reference Range Interpretation Comments K-time Rapid (test code = K-time 0.9 min 0.6-2.3 Rapid) [place] [address]-05-12 11:25:43 Test Item Value Reference Range Interpretation Comments Angle Rapid (test code = Angle 78 degrees 64-80 Rapid) [id number] 11:25:43 Test Item Value Reference Range Interpretation Comments Max Amplitude Rapid (test code = Max 66 mm 52-71 Amplitude Rapid) [place] [address]-05-12 11:25:43 Test Item Value Reference Range Interpretation Comments G-value Rapid (test code = G-value 9.7 5.0-11.6 Rapid) [facility] [place] [id number] 11:25:43 Test Item Value Reference Range Interpretation Comments Estimated % Lysis Rapid 1.6 See_Comment [Au tomated message] The (test code = Estimated syste m which generated % Lysis Rapid) this result t ransmitted reference range : <=7.5. The reference r yi was not used to int erpret this result as normal/abnormal . [id number] 11:25:43 Test Item Value Reference Range Interpretation Comments Eosinophils (test code = 4.8 See_Comment [A utomated message] The Eosinophils) system which ge nerated this result tra nsmitted reference range : <=4.0. The reference r yi was not used to int erpret this result as normal/abnormal . [facility] [id number] 11:25:43 Test Item Value Reference Range Interpretation Comments Eosinophils # (test code 0.2 See_Comment [A utomated message] The = Eosinophils #) system whic h generated this result tra nsmitted reference range : <=0.5. The reference r yi was not used to int erpret this result as normal/abnormal . [facility] Mc[id number] 11:25:43 Test Item Value Reference Range Interpretation Comments Anisocyte (test code = 1+ *ABN*(10/09/21 Anisocyte) 6:25 AM) [place] 494382-05-12 11:25:43 Test Item Value Reference Range Interpretation Comments Large Plt (test code = Large Plt) [facility] [id number] 05:34:01 Test Item Value Reference Range Interpretation Comments GLUCOSE (test code = 104 MG/DL 70-99 H 2216) BUN (test code = 13 MG/DL 11-17) CREATININE (test 0.94 MG/DL 0.80-1.40 code = 221) eGFR (2020 CKD-EPI) 95 >60 (test code = 36201) ML/MIN/1.73 CALC BUN/CREAT (test 14 RATIO 6-28 code = 2235) SODIUM (test code = 141 MEQ/L 118-770 0608) POTASSIUM (test code 4.1 MEQ/L 3.5-5.4 = 2227) CHLORIDE (test code 104 MEQ/L 95-107 = 2214) CARBON DIOXIDE (test 24 MEQ/L 19-31 code = 2206) CALCIUM (test code = 9.3 MG/DL 8.5-10.5 2208) PROTEIN, TOTAL (test 7.3 G/DL 6.1-8.3 code = 222) ALBUMIN (test code = 4.5 G/DL 3.5-5.2 2200) CALC GLOBULIN (test 2.8 G/DL 1.9-3.7 code = 2240) CALC A/G RATIO (test 1.6 RATIO 1.0-2.6 code = 223) BILIRUBIN, TOTAL 0.6 MG/DL See_Comment [Automated message] (test code = 220) The syste m which generated this result transmitted ref erence range: <=1.2. T he reference range was not used to int erpret this result as normal/abnormal . ALKALINE PHOSPHATASE 112 U/L 40-123 (test code = 2204) AST (test code = 13 U/L 9-50 2217) ALT (test code = 14 U/L 5-50 UNLESS OTH ERWISE 2218) INDICATED, ALL TESTING PERFORM [facility], I [address] [place] [address] [facility] DIRECTOR: MAGALY SIEGEL M.D. CLIA NUMBER [id number] CAP ACCREDITATION N O. [id number] COMPREHENSIVE METABOLIC [id number] 00:00:00 Test Item Value Reference Range Interpretation Comments GLUCOSE (test code = 2217) 104 MG/DL BUN (test code = 2208) 13 MG/DL CREATININE (test code = 2214) 0.94 MG/DL eGFR (2020 CKD-EPI) (test code 95 ML/MIN/1.73 = 28035) CALC BUN/CREAT (test code = 14 RATIO 2235) SODIUM (test code = 2231) 141 MEQ/L POTASSIUM (test code = 2228) 4.1 MEQ/L CHLORIDE (test code = 2215) 104 MEQ/L CARBON DIOXIDE (test code = 24 MEQ/L 2206) CALCIUM (test code = 2209) 9.3 MG/DL PROTEIN, TOTAL (test code = 7.3 G/DL 2228) ALBUMIN (test code = 2201) 4.5 G/DL CALC GLOBULIN (test code = 2.8 G/DL 2240) CALC A/G RATIO (test code = 1.6 RATIO 2234) BILIRUBIN, TOTAL (test code = 0.6 MG/DL 2206) ALKALINE PHOSPHATASE (test 112 U/L code = 2204) AST (test code = 2218) 13 U/L ALT (test code = 2219) 14 U/L COMPREHENSIVE METABOLIC [id number] 00:00:00 Test Item Value Reference Range Interpretation Comments GLUCOSE (test code = 2217) 104 MG/DL BUN (test code = 2208) 13 MG/DL CREATININE (test code = 2214) 0.94 MG/DL eGFR (2020 CKD-EPI) (test code 95 ML/MIN/1.73 = 80351) CALC BUN/CREAT (test code = 14 RATIO 2235) SODIUM (test code = 2231) 141 MEQ/L POTASSIUM (test code = 2228) 4.1 MEQ/L CHLORIDE (test code = 2215) 104 MEQ/L CARBON DIOXIDE (test code = 24 MEQ/L 2205) CALCIUM (test code = 2209) 9.3 MG/DL PROTEIN, TOTAL (test code = 7.3 G/DL 2228) ALBUMIN (test code = 2201) 4.5 G/DL CALC GLOBULIN (test code = 2.8 G/DL 2240) CALC A/G RATIO (test code = 1.6 RATIO 2234) BILIRUBIN, TOTAL (test code = 0.6 MG/DL 2206) ALKALINE PHOSPHATASE (test 112 U/L code = 2204) AST (test code = 2218) 13 U/L ALT (test code = 2219) 14 U/L COMPREHENSIVE METABOLIC [id number] 00:00:00 Test Item Value Reference Range Interpretation Comments GLUCOSE (test code = 2217) 104 MG/DL BUN (test code = 2208) 13 MG/DL CREATININE (test code = 2214) 0.94 MG/DL eGFR (2020 CKD-EPI) (test code 95 ML/MIN/1.73 = 59004) CALC BUN/CREAT (test code = 14 RATIO 2235) SODIUM (test code = 2231) 141 MEQ/L POTASSIUM (test code = 2228) 4.1 MEQ/L CHLORIDE (test code = 2215) 104 MEQ/L CARBON DIOXIDE (test code = 24 MEQ/L 2205) CALCIUM (test code = 2209) 9.3 MG/DL PROTEIN, TOTAL (test code = 7.3 G/DL 2228) ALBUMIN (test code = 2201) 4.5 G/DL CALC GLOBULIN (test code = 2.8 G/DL 2240) CALC A/G RATIO (test code = 1.6 RATIO 2234) BILIRUBIN, TOTAL (test code = 0.6 MG/DL 2206) ALKALINE PHOSPHATASE (test 112 U/L code = 2204) AST (test code = 2218) 13 U/L ALT (test code = 2219) 14 U/L COMPREHENSIVE METABOLIC [id number] 00:00:00 Test Item Value Reference Range Interpretation Comments GLUCOSE (test code = 2217) 104 MG/DL BUN (test code = 2208) 13 MG/DL CREATININE (test code = 2214) 0.94 MG/DL eGFR (2020 CKD-EPI) (test code 95 ML/MIN/1.73 = 40196) CALC BUN/CREAT (test code = 14 RATIO 5) SODIUM (test code = 2231) 141 MEQ/L POTASSIUM (test code = 2228) 4.1 MEQ/L CHLORIDE (test code = 2215) 104 MEQ/L CARBON DIOXIDE (test code = 24 MEQ/L 2205) CALCIUM (test code = 2209) 9.3 MG/DL PROTEIN, TOTAL (test code = 7.3 G/DL 2228) ALBUMIN (test code = 2201) 4.5 G/DL CALC GLOBULIN (test code = 2.8 G/DL 2240) CALC A/G RATIO (test code = 1.6 RATIO 2234) BILIRUBIN, TOTAL (test code = 0.6 MG/DL 2206) ALKALINE PHOSPHATASE (test 112 U/L code = 2204) AST (test code = 2218) 13 U/L ALT (test code = 2219) 14 U/L COMPREHENSIVE METABOLIC [id number] 00:00:00 Test Item Value Reference Range Interpretation Comments GLUCOSE (test code = 2217) 104 MG/DL BUN (test code = 2208) 13 MG/DL CREATININE (test code = 2214) 0.94 MG/DL eGFR (2020 CKD-EPI) (test code 95 ML/MIN/1.73 = 54902) CALC BUN/CREAT (test code = 14 RATIO 2235) SODIUM (test code = 2231) 141 MEQ/L POTASSIUM (test code = 2228) 4.1 MEQ/L CHLORIDE (test code = 2215) 104 MEQ/L CARBON DIOXIDE (test code = 24 MEQ/L 2205) CALCIUM (test code = 2209) 9.3 MG/DL PROTEIN, TOTAL (test code = 7.3 G/DL 2228) ALBUMIN (test code = 2201) 4.5 G/DL CALC GLOBULIN (test code = 2.8 G/DL 2240) CALC A/G RATIO (test code = 1.6 RATIO 2234) BILIRUBIN, TOTAL (test code = 0.6 MG/DL 2206) ALKALINE PHOSPHATASE (test 112 U/L code = 2204) AST (test code = 2218) 13 U/L ALT (test code = 2219) 14 U/L - CT L-SPINE W/O [id number] 12:32:00 [facility] 1965 Sex: MPatient Name: HERB AVENDANO Unit No: [id number] EXAMS: CPT: [id number] CT L-SPINE W/O [id number] CT LUMBAR SPINE Multiplanar imaging of the lumbar spine was performed without contrast. Radiation dose optimization was achieved by protocols in accordance with standard of practice, department policies and transfer and line up worker's recommendations with one or more of the following: Automated exposure control, adjustment of KVP and MAS by age and weight, iterative reconstruction [...] demonstrate no significant arthrosis. There is no s jose or foraminal stenosis. L4-L5: Pedicle screws are nicely positioned in L4 and L5. Interbody grafting is evident. Wide laminectomy allows for good expansion of the central canal. Detail is obscuredby hardware and postoperative changes. There apparently has [...] CONCLUSION: The postoperative levels do not show focal fluid collection posteriorly and there is no evidence of spinal stenosis although there Name: HERB AVENDANO JR [facility] Phys: Mara Ham MSN [address] : 1965 Age: 55 Sex: M [place], [place] [address] Loc: N.0312 1 Exam Date: 07/08/2021 Status: ADM IN PH: FAX: PAGE 1 Signed Report (CONTINUED) Patient Name: HERB AVENDANO JR Unit No: [id number] EXAMS: CPT: [id number] CT L-SPINE W/O CONTRAST 87626 (Continued) is substantial artifact from the hardware which limits detail evaluation of the central canal. at 1232 Reported and signed by: Hector Cooney MD CC: Meri Rosas MD; Chip Spear MD; Mara Paiz Technologist: Wilian Garces CTDI: 15.27 DLP: 552.03 Trscr Dt/Tm: 07/08/2021 (1232) by:Black Orig Print D/T: S: 07/08/2021 (1235) BATCH NO: N/A Name: HERB AVENDANO [facility] Phys: Mara Ham [address] : 1965 Age: 55 Sex: M [place], [place] [address] Loc: N.0312 1 Exam Date: 07/08/2021 Status: ADM IN PH: FAX: PAGE 2 Signed [id number] - GLYCOSYLATED [id number] 12:46:00 Test Item Value Reference Range Interpretation Comments GLYCOSYLATED HEMOGLOBIN 4.9 % 4.0-6.0 N Inte rpretive Data: (HA1C) (test code = Caution should be GLYHGB) exercised when interpreting th e HgbA1c in patients wit h hemolytic anemi a, iron deficiency and when the total hemoglobi n is < 9g/dL, due to a decrease in average age of red blood cells Spec Comments: add to collected labsComments to Phleb: add to collected labsCBC W/AUTO [id number] 09:48:00 Test Item Value Reference Range Interpretation [...] BA#) 0.1 x10 3/uL 0.0-0.1 N DIFFERENTIAL [id number] 09:48:00 Test Item Value Reference Range Interpretation Comments PLATELET MORPHOLOGY (test code = NORM NORMAL PLTMORPH) POLYCHROMASIA (test code = POLC) 1+ NONE SEEN A MACROCYTOSIS (test code = MACR) 2+ NONE SEEN A BASIC METABOLIC [id number] 07:23:00 Test Item Value Reference Range Interpretation [...] N = CA) - XR C-SPINE 2-3 [id number] 17:56:00 [facility] : 1965 Sex: MPatient Name: HERB AVENDANO Unit No: [id number] EXAMS: CPT: [id number] XR C-SPINE 2-3 VIEWS 47943 EXAMINATION:Cervical Spine 3 views. INDICATION: Neck pain COMPARISON:None FINDINGS: AP, lateral, and open-mouth odontoid views of the cervical spine. Vertebral bodies normal in height. Mild straightening of the cervical lordosis There is no acute fracture or dislocation. No focal osseous lesions are evident. No prevertebral soft tissue swelling. Anterior osteophytes and C5 and C6 with mild degenerative disc space narrowing at C5-C6. Facet and uncovertebral arthrosis most notable at C3-C4, C4-C5 and C5-C6. IMPRESSION: No acute abnormality seen of the cervical spine. Degenerative changes as above. at 1756 Reported and signed by: Radha Mireles MD CC: Meri Rosas MD; Chip Spear MD Technologist: Radha Ortega Time:DAP (Gy m2): Air Kerma (mGy): Trscr Dt/Tm: 07/03/2021 (175) by:[email or web address] Orig Print D/T: S: 07/03/2021 (728) BATCH NO: N/A Name: HERB AVENDANO [facility] Phys: Meri Canela MD [address] [facility] : 1965 Age: 55 Sex: M [place] [address] Loc: N.0312 1 Exam Date: 07/03/2021 Status: ADM IN PH: FAX: PAGE 1 Signed ReportCBC W/AUTO [id number] 11:29:00 Test Item Value Reference Range Interpretation [...] BA#) 0.1 x10 3/uL 0.0-0.1 N DIFFERENTIAL [id number] 11:29:00 Test Item Value Reference Range Interpretation Comments PLATELET MORPHOLOGY (test code = NORM NORMAL PLTMORPH) MACROCYTOSIS (test code = MACR) 2+ NONE SEEN A BASIC METABOLIC [id number] 11:10:00 Test Item Value Reference Range Interpretation [...] code 9.3 mg/dL 8.5-10.5 N = CA) [id number] 14:25:00 Test Item Value Reference Range Interpretation Comments TROPONIN-I (test code = TROPI) <0.020 ng/mL 0.000-0.034 N [id number] 13:28:00 Test Item Value Reference Range Interpretation Comments GLUBED (test code = GLUBED) 112 MG/DL 70-105 H COVID 19 Asymptomatic IH [id number] 10:05:00 Test Item Value Reference Range Interpretation [...] oms consistent withCOVID-19.Sp ecimen Source: 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] MUCU) Indication for culture: Dysuria/FrequencySpecimen Description: CLEAN CATCHCBC W/AUTO [id number] 06:51:00 Test Item Value Reference Range Interpretation [...] BA#) 0.0 x10 3/uL 0.0-0.1 N DIFFERENTIAL [id number] 06:51:00 Test Item Value Reference Range Interpretation Comments PLATELET MORPHOLOGY (test code = Normal NORMAL PLTMORPH) POLYCHROMASIA (test code = POLC) 1+ NONE SEEN A MACROCYTOSIS (test code = MACR) 2+ NONE SEEN A BASIC METABOLIC [id number] 04:48:00 Test Item Value Reference Range Interpretation [...] mg/dL 8.5-10.5 L = CA) BASIC METABOLIC [id number] 04:26:00 Test Item Value Reference Range Interpretation [...] mg/dL 8.5-10.5 L = CA) CBC W/AUTO [id number] 04:10:00 Test Item Value Reference Range Interpretation [...] x10 3/uL 0.0-0.1 N - CT L-SPINE [id number]/[id number] 17:48:00 [facility] : 1965 Sex: MPatient Name: HERB AVENDANO Unit No: [id number] EXAMS: CPT: [id number] CT L-SPINE W/CONTRAST [address]331 STUDY: CT of the lumbar spine with contrast. CLINICAL HISTORY: post op with right leg numbness TECHNIQUE: Multiple axial CT images of the lumbar spine with 100 mL Isovue-300 IV contrast. Coronal and sagittal reformatted images were also generated for interpretation. CT radiation dose optimization is achieved for this examination by the use of a CT protocol in accordance with ACR practice guidelines and adherence to transfer and line up worker recommendations. CT DLP: 1289 mGy-cm COMPARISON: None FINDINGS: There are 5 nonrib-bearing lumbar vertebrae. Preserved lumbar lordotic curvature. No evidence of acute compression fracture or posterior element fracture. Prior discectomy at L4-L5 and L5-S1, laminectomies at L4 and L5, and posterior instrumented fusion from L4 through S1. The fusion hardware appears intact and in good position. Paraspinal bone grafts are also present around the fusion rods. Postsurgical soft tissue swelling mixed with some emphysema at the level of the surgery. There is no worrisome collection in the area. Level by level evaluation: T11-T12: No disc bulge calcification. Ligamentum flavum thickening/calcification that result in [...] marginal osteophytes and facet arthrosis that appears tocause mild to moderate bilateral frontal stenosis worse on the right. The bony canal appears patent but the canal space Name: HERB AVENDANO JR [facility] Phys: Chip Alamo MD [address] [facility] : 1965 Age: 55 Sex: M [place] [address] Loc: N.5003 1 Exam Date: 06/22/2021 Status: ADM IN PH: FAX: PAGE 1 Signed Report (CONTINUED) Patient Name: HERB AVENDANO GARY MARTIN Unit No: [id number] EXAMS: CPT: [id number] CT L-SPINE W/CONTRAST 45271 (Continued) evaluation is limited due to streak artifact created by fusion hardware. Moderate bilateral SI joint degener ative changes. IMPRESSION: 1. Post discectomy and posterior surgical fusion at L4-L5 and L5-S1 as detailed above. There is some bone graft material and left lateral aspect of the canal space and foramen at L4-L5, which appears to cause mild to moderate left foraminal stenosis and possibly mild canal stenosis. 2. Mild to moderate foraminal stenosis at L5-S1 worse on the right secondary to residual endplate marginal osteophytes and facet arthrosis. at 1748 Reported and signed by: VIELKA VORA MD CC: Chip Spear MD Technologist: Gabriel Simental CTDI: 24.97 DLP: 1289.08Trscr Dt/Tm: 06/22/2021 (1748) by:Kika Orig Print D/T: S:06/22/2021 (175) BATCH NO: N/A Name: HERB AVENDANO JR [facility] Phys: Chip Alamo MD [address] [facility] : 1965 Age: 55 Sex: M [place] [address] Loc: N.5003 1 Exam Date: 06/22/2021 Status: ADM IN PH: FAX: PAGE 2 Signed ReportCBC W/AUTO [id number] 15:08:00 Test Item Value Reference Range Interpretation [...] BA#) 0.0 x10 3/uL 0.0-0.1 N DIFFERENTIAL [id number] 15:08:00 Test Item Value Reference Range Interpretation Comments PLATELET MORPHOLOGY (test code = Normal NORMAL PLTMORPH) MACROCYTOSIS (test code = MACR) 3+ NONE SEEN A BASIC METABOLIC [id number] 14:47:00 Test Item Value Reference Range Interpretation [...] mg/dL 8.5-10.5 L = CA) CBC W/AUTO [id number] 19:00:00 Test Item Value Reference Range Interpretation [...] (test code = ADEQUATE ADEQUATE PLTEST) DIFFERENTIAL [id number] 19:00:00 Test Item Value Reference Range Interpretation Comments PLATELET MORPHOLOGY (test code = Normal NORMAL PLTMORPH) MACROCYTOSIS (test code = MACR) 2+ NONE SEEN A PROTHROMBIN [id number] 16:30:00 Test Item Value Reference Range Interpretation Comments PROTHROMBIN TIME 11.8 SECONDS 10.7-13.1 N PATIENT (test code = PTP) INTERNATIONAL NORMAL 1.0 The INR is to be RATIO (test code = used only for INR) monitoring oral anticoagulantth erap y. INDICATION I NR VALUE ---- ---- ---- --------1. Prophylaxis, de ep venous thrombos is, 2.0 - 2.5 inclu ding high-risk surgery.2. Prophylaxis, de ep venous thrombos is, 2.0 - 3.0 hip surgery, treatm ent for deep venous thrombosis or pulmonary prevention of systemic emboli sm in patients wit h valvular heart disease, atrial fibrillation, tissue heart va lve, or acute myocar dial infarction.3. Mechanical prosthesis hear t valves, 3.0 - 4 .5 recurrent syste anson embolism. THROMBOPLASTIN TIME [id number] 16:30:00 Test Item Value Reference Range Interpretation Comments THROMBOPLASTIN TIME PARTIAL (test 30 SECONDS 25-38 N code = PTT) BASIC METABOLIC [id number] 16:29:00 Test Item Value Reference Range Interpretation [...] 8.5 mg/dL 8.5-10.5 N = CA) URINALYSIS [id number] 16:27:00 Test Item Value Reference Range Interpretation [...] NONE SEEN MUCU) - XR CHEST 2 [id number] 15:57:00 [facility] : 1965 Sex: MPatient Name: HERB AVENDANO Unit No: [id number] EXAMS: CPT: [id number] XR CHEST 2 V 49280 CHEST2 VIEWS. HISTORY: PRE-OP COMPARISON: none FINDINGS: The lungs are well aerated and clear. The cardiomediastinal silhouette is normal. No pleural effusion is seen. Bony thorax is unremarkable. IMPRESSION: No acute abnormality is detected. at 1557 Reported and signed by: Benedict Haile MD CC: Chip Spear MD Technologist: Cody Ortega Time: DAP (Gy m2): Air Kerma (mGy): Trscr Dt/Tm: 06/18/2021 (1557) by:[email or web address] Orig Print D/T: S: 06/18/2021 (1600) BATCH NO: N/A Name: JUAN ALBERTOHERB GARY [facility] Phys: Chip Alamo MD [address] : 1965 Age: 55 Sex: M [place] [address] Loc: [place] [place] Date: 06/18/2021 Status: PRE IN PH: FAX: PAGE 1 Signed Report COVID 19 Asymptomatic IH [id number] 14:48:00 Test Item Value Reference Range Interpretation [...] oms consistent withCOVID-19.Sp ecimen Source: Nasopha 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 Views: Frontal supine view of the abdomen. 1 Vie w. COMPARISON: OT CHEST ABDOMEN PELVIS W CONTRAST CT 10/09/2021 6:19 AM FINDINGS: Gastrointestinal tract: Gas is scattered in the small and large bowel in a nonobstructive pattern. There is a physiologic c olonic stool burden. Bones/joints: Spinal fixation hardware is presen t from L4 through S1. Soft tissues: Unremarkable. IMPRESSION: Nonobstructive bowel gas pattern. Amaya Holley MD On 06/17/2022 13:46:27; VR-NEOPI [id number] PROCEDURE INFORMATION: [facility] 11:00:38-00:00 Exam: XR Abdomen Exam date and time: 06/17/2022 10:20 AM Age: 56 years old Clinical indication: Quadriplegia, c1-c4 incompl ete; Additional info: /tetraplegia, surveillance bowel and bladder TECHNIQUE: Imaging protocol: Radiologic exam of the abdomen . Views: Frontal supine view of the abdomen. 1 Vie w. COMPARISON: OT CHEST ABDOMEN PELVIS W CONTRAST CT 10/09/2021 6:19 AM FINDINGS: Gastrointestinal tract: Gas is scattered in the small and large bowel in a nonobstructive pattern. There is a physiologic c olonic stool burden. Bones/joints: Spinal fixation hardware is presen t from L4 through S1. Soft tissues: Unremarkable. IMPRESSION: Nonobstructive bowel gas pattern. Amaya Holley MD On 06/17/2022 13:46:27; VR-NEOPI [id number] PROCEDURE INFORMATION: [facility] 10:57:00-00:00 Exam: US Retroperitoneal; Complete; Kidneys and Bladder Exam date and time: 06/17/2022 10:56 AM Age: 56 years old Clinical indication: Quadriplegia, c1-c4 incompl ete; Additional info: /tetraplegia, surveillance gu TECHNIQUE: Imaging protocol: Real-time ultrasound of the re troperitoneum with image documentation. Complete exam focused on the kidn eys and bladder. COMPARISON: OT CHEST ABDOMEN PELVIS W CONTRAST CT 10/09/2021 6:19 AM FINDINGS: Right kidney: Normal echogen icity, size, and cortical thickness, measuring 10.0 x 4.7 x 4.9 cm. No stones. No hydronephrosis. Left kidney: Normal echogenicity, size, and cortical thickness, measuring 10.3 x 5.8 x 5.8 cm. No stones. No hydronephrosis. Urinary bladder: Unremarkable. The bilateral ure teral jets are noted. IMPRESSION: Unremarkable kidneys and bladder. Diana Franklin MD On 06/17/2022 13:02:17; VR-CSMI [id number] 2022-06-17 PROCEDURE INFORMATION: MARY ANNE [facility] 10:57:00-00:00 Exam: US Retroperitoneal; Complete; Kidneys and Bladder Exam date and time: 06/17/2022 10:56 AM Age: 56 years old Clinical indication: Quadriplegia, c1-c4 incompl ete; Additional info: /tetraplegia, surveillance gu TECHNIQUE: Imaging protocol: Real-time ultrasound of the re troperitoneum with image documentation. Complete exam focused on the kidn eys and bladder. COMPARISON: OT CHEST ABDOMEN PELVIS W CONTRAST CT 10/09/2021 6:19 AM FINDINGS: Right kidney: Normal echogen icity, size, and cortical thickness, measuring 10.0 x 4.7 x 4.9 cm. No stones. No hydronephrosis. Left kidney: Normal echogenicity, size, and cortical thickness, measuring 10.3 x 5.8 x 5.8 cm. No stones. No hydronephrosis. Urinary bladder: Unremarkable. The bilateral ure teral jets are noted. IMPRESSION: Unremarkable kidneys and bladder. Diana Franklin MD On 06/17/2022 13:02:17; VR-CSMI [id number] 2022-01-14 PROCEDURE INFORMATION: MARY ANNE medrano 12:06:24-00:00 Exam: XR Lumbosacral Spine Exam date and time: 01/14/2022 12:08 PM Age: 56 years old Clinical indication: Fusion of spine, lumbar reg ion; Additional info: /m43.26 fusion of spine, lumbar region TECHNIQUE: Imaging protocol: Radiologic exam of the lumbosa cral spine. Views: 2 or 3 views. AP Lateral and Coned down l ateral COMPARISON: SPINE ENTIRE WO CONTRAST MRI 10/09/2021 7:47 AM FINDINGS: Bones/joints: There is poste rior fusion of the L4, L5 and S1 with corresponding intervertebral disc spacers. There are multileve l degenerative changes of the facet joints of the lumbar spine. No acute fract ure. Normal alignment. Soft tissues: Paraspinal soft tissues are unrema rkable. Notes: If there is further concern or neurologic al abnormalities on clinical exam, CT or MRI of the lumbar spine may be perfo rmed for complete assessment. IMPRESSION: 1. No acute radiograpic abnormality 2. Postsurgical changes from prior posterior fus ion of L4, L5 and S1 Andi Alanis MD On 01/15/2022 11:32:58; VR-RO [id number] 2022-01-14 PROCEDURE INFORMATION: MARY ANNE medrano 12:06:24-00:00 Exam: XR Lumbosacral Spine Exam date and time: 01/14/2022 12:08 PM Age: 56 years old Clinical indication: Fusion of spine, lumbar reg ion; Additional info: /m43.26 fusion of spine, lumbar region TECHNIQUE: Imaging protocol: Radiologic exam of the lumbosa cral spine. Views: 2 or 3 views. AP Lateral and Coned down l ateral COMPARISON: SPINE ENTIRE WO CONTRAST MRI 10/09/2021 7:47 AM FINDINGS: Bones/joints: There is poste rior fusion of the L4, L5 and S1 with corresponding intervertebral disc spacers. There are multileve l degenerative changes of the facet joints of the lumbar spine. No acute fract ure. Normal alignment. Soft tissues: Paraspinal soft tissues are unrema rkable. Notes: If there is further concern or neurologic al abnormalities on clinical exam, CT or MRI of the lumbar spine may be perfo rmed for complete assessment. IMPRESSION: 1. No acute radiograpic abnormality 2. Postsurgical changes from prior posterior fus ion of L4, L5 and S1 Andi Alanis MD On 01/15/2022 11:32:58; VR-RO OM3 2022-01-03 PROCEDURE INFORMATION: MARY ANNE medrano 13:00:00-00:00 Exam: MR Cervical Spine Without Contrast Exam date and time: 01/03/2022 1:21 PM Age: 56 years old Clinical indication: Spinal stenosis, cervical region; Additional info: /m48.02 spinal stenosis, cervical region TECHNIQUE: Imaging protocol: Magnetic resonance imaging of the cervical spine without contrast. COMPARISON: SPINE ENTIRE WO CONTRAST MRI 10/09/2021 7:47 AM FINDINGS: Bones/joints: Status post anterior cervical disc ectomy and fusion from C5-C7. Spinal cord: Normal signal. No cord compression. C2-C3: No significant disc disease. No significa nt spinal stenosis. C3-C4: No significant disc disease. No significa nt spinal stenosis. C4-C5: Disc osteophyte complex results in modera te left and mild right neural foraminal narrowing C5-C6: Disc osteophyte complex results in severe bilateral neural foraminal narrowing with a small right paracentral disc protrusion which results in mass effect on the ventral cord C6-C7: Disc osteophyte complex results in severe right and moderate to severe left neural foraminal narrowing C7-T1: No significant disc disease. No significa nt spinal stenosis. Soft tissues: Unremarkable. Vasculature: Expected flow voids in the vertebra l arteries. IMPRESSION: 1. Compared to 10/09/2021, i nterval ACDF from C5-C7 with surgical decompression of the previously noted moderate to severe spina l canal effacement at these levels 2. Additional multilevel deg enerative disc disease results most prominently in: 3. Moderate to severe neural foraminal narrowing from C4-C5 to C6-C7 4. C5-C6 small right paracentral disc pr otrusion results in mass effect on the ventral cord Diana Franklin MD On 01/05/2022 10:29:08; -CSMI [id number] 2022-01-03 PROCEDURE INFORMATION: LUCIO medrano 13:00:00-00:00 Exam: MR Cervical Spine Without Contrast Exam date and time: 01/03/2022 1:21 PM Age: 56 years old Clinical indication: Spinal stenosis, cervical region; Additional info: /m48.02 spinal stenosis, cervical region TECHNIQUE: Imaging protocol: Magnetic resonance imaging of the cervical spine without contrast. COMPARISON: SPINE ENTIRE WO CONTRAST MRI 10/09/2021 7:47 AM FINDINGS: Bones/joints: Status post anterior cervical disc ectomy and fusion from C5-C7. Spinal cord: Normal signal. No cord compression. C2-C3: No significant disc disease. No significa nt spinal stenosis. C3-C4: No significant disc disease. No significa nt spinal stenosis. C4-C5: Disc osteophyte complex results in modera te left and mild right neural foraminal narrowing C5-C6: Disc osteophyte complex results in severe bilateral neural foraminal narrowing with a small right paracentral disc protrusion which results in mass effect on the ventral cord C6-C7: Disc osteophyte complex results in severe right and moderate to severe left neural foraminal narrowing C7-T1: No significant disc disease. No significa nt spinal stenosis. Soft tissues: Unremarkable. Vasculature: Expected flow voids in the vertebra l arteries. IMPRESSION: 1. Compared to 10/09/2021, i nterval ACDF from C5-C7 with surgical decompression of the previously noted moderate to severe spina l canal effacement at these levels 2. Additional multilevel deg enerative disc disease results most prominently in: 3. Moderate to severe neural foraminal narrowing from C4-C5 to C6-C7 4. C5-C6 small right paracentral disc pr otrusion results in mass effect on the ventral cord Diana Franklin MD On 01/05/2022 10:29:08; VR-CSMI [id number] 2021-11-25 EXAM: XR CERVICAL SPINE 3 VIEWS LUCIO Olivares 11:30:00-00:00 DATE: 11/25/2021 11:30 INDICATION: - M54.2 Cervicalgia COMPARISON: None. TECHNIQUE: AP, open-mouth odontoid and lateral v iews of the cervical spine IMPRESSION: * C1-C7 is evaluated * ACDF spanning C5/6/7 levels. * No evidence of listhesis. * Mild multilevel degenerative changes. * No acute abnormality 2021-11-25 EXAM: XR CERVICAL SPINE 3 VIEWS LUCIO Olivares 11:30:00-00:00 DATE: 11/25/2021 11:30 INDICATION: - M54.2 Cervicalgia COMPARISON: None. TECHNIQUE: AP, open-mouth odontoid and lateral v iews of the cervical spine IMPRESSION: * C1-C7 is evaluated * ACDF spanning C5/6/7 levels. * No evidence of listhesis. * Mild multilevel degenerative changes. * No acute abnormality 2021-11-06 EXAM: CT ABDOMEN AND PELVIS WITHOUT CONTRAST [facility] 14:39:51-00:00 DATE: 11/06/[address]21 [address] INDICATION: - inguinal pain ADDITIONAL INFORMATION: None. COMPARISON: None. TECHNIQUE: Volumetric CT of the abdomen and pelvis acquired without intravenous contrast. Axial, coronal and sagittal images are provided. IV contrast: None. Enteric contrast: None. DLP (mGy-cm): 545. FINDINGS: Aboriginal Education Teacher: Noncontributory. Lines, tubes and hardware: Posterior spinal fusi on and laminectomy at L4-S1. Lower thorax: Prominent epicardial fat. Liver: 1.1 cm hepatic cyst in segment 2. Biliary tree: No intra- or extrahepatic bile dora t dilation. Gallbladder: Normal. Pancreas: Normal. Spleen: Normal. Adrenals: Normal. Kidneys and ureters: Nonspec ific bilateral perinephric fat stranding, left greater than right. Punctate nonobstructing left renal calculus seen. Additionally, bilateral renal medulla are slightly hyperattenuating. No hydronephrosis. Bladder: Decompressed or not fully distended. Reproductive organs: Prostate and seminal vesicl es are unremarkable. Gastrointestinal tract: Lower esophagus: Normal. Stomach: Normal. Small bowel: Normal. Colon: Scattered mild colonic diverticulosis wit h no inflammatory changes. Appendix: Normal. Peritoneum, mesentery and re troperitoneum: No free air, ascites or loculated fluid. Lymph nodes: Normal. Vasculature: Aorta and branches: Normal. IVC and veins: Normal. Portal and mesenteric vasculature: Normal. Bones: No acute abnormality. Soft tissues: Small fat-containing bilateral ing uinal hernias. IMPRESSION: 1. Punctate nonobstructing left renal calculus. No hydronephrosis. 2. Bilateral renal medulla a t or slightly hyperattenuating, this could be related to dehydration. 3. Nonspecific bilateral perinephric fat strandi ng. 2021-11-06 EXAM: CT ABDOMEN AND PELVIS WITHOUT CONTRAST [facility] 14:39:51-00:00 DATE: 11/06/2021 [address] INDICATION: - inguinal pain ADDITIONAL INFORMATION: None. COMPARISON: None. TECHNIQUE: Volumetric CT of the abdomen and pelvis acquired without intravenous contrast. Axial, coronal and sagittal images are provided. IV contrast: None. Enteric contrast: None. DLP (mGy-cm): 545. FINDINGS: Aboriginal Education Teacher: Noncontributory. Lines, tubes and hardware: Posterior spinal fusi on and laminectomy at L4-S1. Lower thorax: Prominent epicardial fat. Liver: 1.1 cm hepatic cyst in segment 2. Biliary tree: No intra- or extrahepatic bile dora t dilation. Gallbladder: Normal. Pancreas: Normal. Spleen: Normal. Adrenals: Normal. Kidneys and ureters: Nonspec ific bilateral perinephric fat stranding, left greater than right. Punctate nonobstructing left renal calculus seen. Additionally, bilateral renal medulla are slightly hyperattenuating. No hydronephrosis. Bladder: Decompressed or not fully distended. Reproductive organs: Prostate and seminal vesicl es are unremarkable. Gastrointestinal tract: Lower esophagus: Normal. Stomach: Normal. Small bowel: Normal. Colon: Scattered mild colonic diverticulosis wit h no inflammatory changes. Appendix: Normal. Peritoneum, mesentery and re troperitoneum: No free air, ascites or loculated fluid. Lymph nodes: Normal. Vasculature: Aorta and branches: Normal. IVC and veins: Normal. Portal and mesenteric vasculature: Normal. Bones: No acute abnormality. Soft tissues: Small fat-containing bilateral ing uinal hernias. IMPRESSION: 1. Punctate nonobstructing left renal calculus. No hydronephrosis. 2. Bilateral renal medulla a t or slightly hyperattenuating, this could be related to dehydration. 3. Nonspecific bilateral perinephric fat strandi ng. 2021-11-06 EXAM: US SCROTUM WITH DOPPLER [facility] 08:10:00-00:00 Center DATE: 11/05/2021 23:48 INDICATION: - bilat R>L groin pain, tenderness w ith ?lymphadenopathy on R COMPARISON: None. TECHNIQUE: Multiplanar marilee veda, color Doppler, and spectral Doppler ultrasound of the scrotum and testes. FINDINGS: Right testicle: Size: 3.6 x 1.6 x 2.1 cm Echogenicity: Normal. Calcifications: None. Cysts: None. Masses: None. Doppler: Normal. Right epididymis: Head size: 1.1 x 1.1 x 0.7 cm Body: Normal. Tail: Normal. Echogenicity: Normal. Cysts: None. Masses: None. Doppler: Normal. Right hydrocele: None. Right varicocele: Present Right hernia: None. Left testicle: Size: 3.3 x 1.8 x 2.1 cm Echogenicity: Normal. Calcifications: None. Cysts: None. Masses: None. Doppler: Normal. Left epididymis: Head size: 0.9 x 0.9 x 0.6 cm Body: Normal. Tail: Normal. Echogenicity: Normal. Cysts: None. Masses: None. Doppler: Normal. Left hydrocele: None. Left varicocele: Present Left hernia: None. Scrotal wall: Normal. Other: None. IMPRESSION: 1. Bilateral varicocele, no other abnormality se en. 2021-11-06 EXAM: US SCROTUM WITH DOPPLER [facility] 08:10:00-00:00 Center DATE: 11/05/2021 23:48 INDICATION: - bilat R>L groin pain, tenderness w ith ?lymphadenopathy on R COMPARISON: None. TECHNIQUE: Multiplanar marilee veda, color Doppler, and spectral Doppler ultrasound of the scrotum and testes. FINDINGS: Right testicle: Size: 3.6 x 1.6 x 2.1 cm Echogenicity: Normal. Calcifications: None. Cysts: None. Masses: None. Doppler: Normal. Right epididymis: Head size: 1.1 x 1.1 x 0.7 cm Body: Normal. Tail: Normal. Echogenicity: Normal. Cysts: None. Masses: None. Doppler: Normal. Right hydrocele: None. Right varicocele: Present Right hernia: None. Left testicle: Size: 3.3 x 1.8 x 2.1 cm Echogenicity: Normal. Calcifications: None. Cysts: None. Masses: None. Doppler: Normal. Left epididymis: Head size: 0.9 x 0.9 x 0.6 cm Body: Normal. Tail: Normal. Echogenicity: Normal. Cysts: None. Masses: None. Doppler: Normal. Left hydrocele: None. Left varicocele: Present Left hernia: None. Scrotal wall: Normal. Other: None. IMPRESSION: 1. Bilateral varicocele, no other abnormality se en. 2021-11-05 EXAM: MRI LUMBAR SPINE WITHOUT CONTRAST [facility] 00:41:57-00:00 DATE: 11/05/2021 Center INDICATION: - bilateral lumbar radiculopathy. COMPARISON: None TECHNIQUE: Multiplanar, mult isequence, noncontrast MR imaging of the lumbar spine. IV contrast: None FINDINGS: Numbering: The inferior-most, lumbar-typ e vertebral body is referred to as L5. Alignment: No spondylolisthesis on supine neutra l exam. Bones: * Vertebral body heights are maintained. No foca l marrow replacing lesion. * Posterior decompression at L4 and L5. * Transpedicular fixation at the L4, L5, and S1. * Intervertebral disc prosthesis at L4-L5 and L5 -S1. Conus medullaris: Normal in size and signal. Ter minates at a normal level. Cauda equina: The cauda equina nerve roots are n ormal. Individual levels: L1-L2: Normal. L2-L3: Normal. L3-L4: Normal. L4-L5: Intervertebral disc prosthesis. Status po st posterior decompression. L5-S1: Intervertebral disc p rosthesis. Status post posterior decompression. Asymmetry bulging of the annulus fibrosis toward the right lateral recess, posteriorly displacing the right S1 nerve root (series 601, image 7. Other: The included retroper itoneal structures and paraspinal soft tissues are unremarkable. IMPRESSION: Status post posterior decomp ression and anterior and posterior fixation from L4 through S1. Asymmetric bulging of the an nulus fibrosis at L5-S1 on the right, posteriorly displacing the right S1 nerve root. 2021-11-05 EXAM: MRI LUMBAR SPINE WITHOUT CONTRAST [facility] 00:41:57-00:00 DATE: 11/05/2021 Center INDICATION: - bilateral lumbar radiculopathy. COMPARISON: None TECHNIQUE: Multiplanar, mult isequence, noncontrast MR imaging of the lumbar spine. IV contrast: None FINDINGS: Numbering: The inferior-most, lumbar-typ e vertebral body is referred to as L5. Alignment: No spondylolisthesis on supine neutra l exam. Bones: * Vertebral body heights are maintained. No foca l marrow replacing lesion. * Posterior decompression at L4 and L5. * Transpedicular fixation at the L4, L5, and S1. * Intervertebral disc prosthesis at L4-L5 and L5 -S1. Conus medullaris: Normal in size and signal. Ter minates at a normal level. Cauda equina: The cauda equina nerve roots are n ormal. Individual levels: L1-L2: Normal. L2-L3: Normal. L3-L4: Normal. L4-L5: Intervertebral disc prosthesis. Status po st posterior decompression. L5-S1: Intervertebral disc p rosthesis. Status post posterior decompression. Asymmetry bulging of the annulus fibrosis toward the right lateral recess, posteriorly displacing the right S1 nerve root (series 601, image 7. Other: The included retroper itoneal structures and paraspinal soft tissues are unremarkable. IMPRESSION: Status post posterior decomp ression and anterior and posterior fixation from L4 through S1. Asymmetric bulging of the an nulus fibrosis at L5-S1 on the right, posteriorly displacing the right S1 nerve root. 2021-11-04 EXAM: CT CERVICAL SPINE WITHOUT CONTRAST [facility] 16:43:04-00:00 EXAM: CT thoracic spine without contrast Center EXAM: CT lumbar spine without contrast DATE: 11/04/2021 INDICATION: 56 years old Mal e patient with history of - OUTSIDE STUDY/ SURGICAL PROBLEM. Pain COMPARISON: None. TECHNIQUE: Volumetric CT acq uisition of the cervical, thoracic and lumbar spine without contrast. Computer reformatted coronal and sagittal images are also provided. Axial images are available in both bone and soft tissue algorithm. FINDINGS: CT cervical spine: Postoperative changes of the anterior spinal fusion of the C5-C7 with interbody disc spacer and anterior fixation plate and body screws. The fixation plate is located to the right of midline. No hardware fracture or loosening is identified. At C4-C5, Uncovertebral elliott ges resulting in moderate right and mild to moderate left foraminal narrowing.. At C5-C6, endplate spurring resulting in moderate spinal canal narrowing. Mild to moderate bilateral foraminal narrowing, left worse on right. At C6-C7, mild spinal canal narrowing. Uncovertebral changes resulting in mild bilateral foraminal narrowing. At C7-T1, no spinal canal or foraminal narrowing is present. CT thoracic spine: The thoracic vertebral mariah s are normal in height and alignment. No high-grade spinal canal or foraminal narrowing is present at any level. CT lumbar spine: Postoperative changes of the posterior decompression laminectomies and posterior spinal fusion at L4, L5 and S1. Parallel fixation rods and transpedicular screws are seen bilaterally. Fluid collection is seen in the posterior decompression laminectomy may represent postoperative fluid. IMPRESSION: Second opinion consultation 1. Postoperative changes of anterior spinal fusion of the C5-C7, as detailed above. Degenerative changes, as described. 2. Postoperative changes of the posterior decompression laminectomy and spinal fusion at L4, L5 and S1, as detailed above. Fluid collection in the posterior laminectomy bed may represent postoperative f luid collection versus less likely infection. Better evaluation may be done with contrast enhanced MR lumbar spine. Clinical correlation is recommended. 2021-11-04 EXAM: CT CERVICAL SPINE WITHOUT CONTRAST [facility] 16:43:04-00:00 EXAM: CT thoracic spine without contrast Center EXAM: CT lumbar spine without contrast DATE: 11/04/2021 INDICATION: 56 years old Mal e patient with history of - OUTSIDE STUDY/ SURGICAL PROBLEM. Pain COMPARISON: None. TECHNIQUE: Volumetric CT acq uisition of the cervical, thoracic and lumbar spine without contrast. Computer reformatted coronal and sagittal images are also provided. Axial images are available in both bone and soft tissue algorithm. FINDINGS: CT cervical spine: Postoperative changes of the anterior spinal fusion of the C5-C7 with interbody disc spacer and anterior fixation plate and body screws. The fixation plate is located to the right of midline. No hardware fracture or loosening is identified. At C4-C5, Uncovertebral elliott ges resulting in moderate right and mild to moderate left foraminal narrowing.. At C5-C6, endplate spurring resulting in moderate spinal canal narrowing. Mild to moderate bilateral foraminal narrowing, left worse on right. At C6-C7, mild spinal canal narrowing. Uncovertebral changes resulting in mild bilateral foraminal narrowing. At C7-T1, no spinal canal or foraminal narrowing is present. CT thoracic spine: The thoracic vertebral mariah s are normal in height and alignment. No high-grade spinal canal or foraminal narrowing is present at any level. CT lumbar spine: Postoperative changes of the posterior decompression laminectomies and posterior spinal fusion at L4, L5 and S1. Parallel fixation rods and transpedicular screws are seen bilaterally. Fluid collection is seen in the posterior decompression laminectomy may represent postoperative fluid. IMPRESSION: Second opinion consultation 1. Postoperative changes of anterior spinal fusion of the C5-C7, as detailed above. Degenerative changes, as described. 2. Postoperative changes of the posterior decompression laminectomy and spinal fusion at L4, L5 and S1, as detailed above. Fluid collection in the posterior laminectomy bed may represent postoperative f luid collection versus less likely infection. Better evaluation may be done with contrast enhanced MR lumbar spine. Clinical correlation is recommended. 2021-11-04 EXAM: CT CERVICAL SPINE WITHOUT CONTRAST [facility] 16:43:04-00:00 EXAM: CT thoracic spine without contrast [place] EXAM: CT lumbar spine without contrast DATE: 11/04/2021 INDICATION: 56 years old Mal e patient with history of - OUTSIDE STUDY/ SURGICAL PROBLEM. Pain COMPARISON: None. TECHNIQUE: Volumetric CT acq uisition of the cervical, thoracic and lumbar spine without contrast. Computer reformatted coronal and sagittal images are also provided. Axial images are available in both bone and soft tissue algorithm. FINDINGS: CT cervical spine: Postoperative changes of the anterior spinal fusion of the C5-C7 with interbody disc spacer and anterior fixation plate and body screws. The fixation plate is located to the right of midline. No hardware fracture or loosening is identified. At C4-C5, Uncovertebral elliott ges resulting in moderate right and mild to moderate left foraminal narrowing.. At C5-C6, endplate spurring resulting in moderate spinal canal narrowing. Mild to moderate bilateral foraminal narrowing, left worse on right. At C6-C7, mild spinal canal narrowing. Uncovertebral changes resulting in mild bilateral foraminal narrowing. At C7-T1, no spinal canal or foraminal narrowing is present. CT thoracic spine: The thoracic vertebral mariah s are normal in height and alignment. No high-grade spinal canal or foraminal narrowing is present at any level. CT lumbar spine: Postoperative changes of the posterior decompression laminectomies and posterior spinal fusion at L4, L5 and S1. Parallel fixation rods and transpedicular screws are seen bilaterally. Fluid collection is seen in the posterior decompression laminectomy may represent postoperative fluid. IMPRESSION: Second opinion consultation 1. Postoperative changes of anterior spinal fusion of the C5-C7, as detailed above. Degenerative changes, as described. 2. Postoperative changes of the posterior decompression laminectomy and spinal fusion at L4, L5 and S1, as detailed above. Fluid collection in the posterior laminectomy bed may represent postoperative f luid collection versus less likely infection. Better evaluation may be done with contrast enhanced MR lumbar spine. Clinical correlation is recommended. 2021-11-04 EXAM: CT CERVICAL SPINE WITHOUT CONTRAST [facility] 16:43:04-00:00 EXAM: CT thoracic spine without contrast [place] EXAM: CT lumbar spine without contrast DATE: 11/04/2021 INDICATION: 56 years old Mal e patient with history of - OUTSIDE STUDY/ SURGICAL PROBLEM. Pain COMPARISON: None. TECHNIQUE: Volumetric CT acq uisition of the cervical, thoracic and lumbar spine without contrast. Computer reformatted coronal and sagittal images are also provided. Axial images are available in both bone and soft tissue algorithm. FINDINGS: CT cervical spine: Postoperative changes of the anterior spinal fusion of the C5-C7 with interbody disc spacer and anterior fixation plate and body screws. The fixation plate is located to the right of midline. No hardware fracture or loosening is identified. At C4-C5, Uncovertebral elliott ges resulting in moderate right and mild to moderate left foraminal narrowing.. At C5-C6, endplate spurring resulting in moderate spinal canal narrowing. Mild to moderate bilateral foraminal narrowing, left worse on right. At C6-C7, mild spinal canal narrowing. Uncovertebral changes resulting in mild bilateral foraminal narrowing. At C7-T1, no spinal canal or foraminal narrowing is present. CT thoracic spine: The thoracic vertebral mariah s are normal in height and alignment. No high-grade spinal canal or foraminal narrowing is present at any level. CT lumbar spine: Postoperative changes of the posterior decompression laminectomies and posterior spinal fusion at L4, L5 and S1. Parallel fixation rods and transpedicular screws are seen bilaterally. Fluid collection is seen in the posterior decompression laminectomy may represent postoperative fluid. IMPRESSION: Second opinion consultation 1. Postoperative changes of anterior spinal fusion of the C5-C7, as detailed above. Degenerative changes, as described. 2. Postoperative changes of the posterior decompression laminectomy and spinal fusion at L4, L5 and S1, as detailed above. Fluid collection in the posterior laminectomy bed may represent postoperative f luid collection versus less likely infection. Better evaluation may be done with contrast enhanced MR lumbar spine. Clinical correlation is recommended. 2021-11-04 EXAM: CT CERVICAL SPINE WITHOUT CONTRAST [facility] 16:43:04-00:00 EXAM: CT thoracic spine without contrast Center EXAM: CT lumbar spine without contrast DATE: 11/04/2021 INDICATION: 56 years old Mal e patient with history of - OUTSIDE STUDY/ SURGICAL PROBLEM. Pain COMPARISON: None. TECHNIQUE: Volumetric CT acq uisition of the cervical, thoracic and lumbar spine without contrast. Computer reformatted coronal and sagittal images are also provided. Axial images are available in both bone and soft tissue algorithm. FINDINGS: CT cervical spine: Postoperative changes of the anterior spinal fusion of the C5-C7 with interbody disc spacer and anterior fixation plate and body screws. The fixation plate is located to the right of midline. No hardware fracture or loosening is identified. At C4-C5, Uncovertebral elliott ges resulting in moderate right and mild to moderate left foraminal narrowing.. At C5-C6, endplate spurring resulting in moderate spinal canal narrowing. Mild to moderate bilateral foraminal narrowing, left worse on right. At C6-C7, mild spinal canal narrowing. Uncovertebral changes resulting in mild bilateral foraminal narrowing. At C7-T1, no spinal canal or foraminal narrowing is present. CT thoracic spine: The thoracic vertebral mariah s are normal in height and alignment. No high-grade spinal canal or foraminal narrowing is present at any level. CT lumbar spine: Postoperative changes of the posterior decompression laminectomies and posterior spinal fusion at L4, L5 and S1. Parallel fixation rods and transpedicular screws are seen bilaterally. Fluid collection is seen in the posterior decompression laminectomy may represent postoperative fluid. IMPRESSION: Second opinion consultation 1. Postoperative changes of anterior spinal fusion of the C5-C7, as detailed above. Degenerative changes, as described. 2. Postoperative changes of the posterior decompression laminectomy and spinal fusion at L4, L5 and S1, as detailed above. Fluid collection in the posterior laminectomy bed may represent postoperative f luid collection versus less likely infection. Better evaluation may be done with contrast enhanced MR lumbar spine. Clinical correlation is recommended. 2021-11-04 EXAM: CT CERVICAL SPINE WITHOUT CONTRAST [facility] 16:43:04-00:00 EXAM: CT thoracic spine without contrast Center EXAM: CT lumbar spine without contrast DATE: 11/04/2021 INDICATION: 56 years old Mal e patient with history of - OUTSIDE STUDY/ SURGICAL PROBLEM. Pain COMPARISON: None. TECHNIQUE: Volumetric CT acq uisition of the cervical, thoracic and lumbar spine without contrast. Computer reformatted coronal and sagittal images are also provided. Axial images are available in both bone and soft tissue algorithm. FINDINGS: CT cervical spine: Postoperative changes of the anterior spinal fusion of the C5-C7 with interbody disc spacer and anterior fixation plate and body screws. The fixation plate is located to the right of midline. No hardware fracture or loosening is identified. At C4-C5, Uncovertebral elliott ges resulting in moderate right and mild to moderate left foraminal narrowing.. At C5-C6, endplate spurring resulting in moderate spinal canal narrowing. Mild to moderate bilateral foraminal narrowing, left worse on right. At C6-C7, mild spinal canal narrowing. Uncovertebral changes resulting in mild bilateral foraminal narrowing. At C7-T1, no spinal canal or foraminal narrowing is present. CT thoracic spine: The thoracic vertebral mariah s are normal in height and alignment. No high-grade spinal canal or foraminal narrowing is present at any level. CT lumbar spine: Postoperative changes of the posterior decompression laminectomies and posterior spinal fusion at L4, L5 and S1. Parallel fixation rods and transpedicular screws are seen bilaterally. Fluid collection is seen in the posterior decompression laminectomy may represent postoperative fluid. IMPRESSION: Second opinion consultation 1. Postoperative changes of anterior spinal fusion of the C5-C7, as detailed above. Degenerative changes, as described. 2. Postoperative changes of the posterior decompression laminectomy and spinal fusion at L4, L5 and S1, as detailed above. Fluid collection in the posterior laminectomy bed may represent postoperative f luid collection versus less likely infection. Better evaluation may be done with contrast enhanced MR lumbar spine. Clinical correlation is recommended. 2021-10-09 EXAM: XR CHEST 1 VIEW [facility] 21:15:00-00:00 DATE: 10/09/2021 20:56 Center INDICATION: - post op COMPARISON: CT chest abdomen pelvis 05/13/2021 TECHNIQUE: AP chest. FINDINGS: Lines, tubes and hardware: P ostoperative appearance of partially visualized cervical fusion hardware with surgical drain projecting right of midline from the neck and coursing outside the [id number] to the right. Lungs and pleura: The lungs are clear. The costophrenic sulci are sharp without effusion. No pneumothorax is identified on this semiupright radiograph. Heart and mediastinum: The h eart size is normal. The mediastinal contours are normal. Bones and soft tissues: No acute abnormality. IMPRESSION: 1. No acute abnormality. 2. Partially visualized cervical fusion hardware and surgical drain. 2021-10-09 EXAM: XR CHEST 1 VIEW [facility] 21:15:00-00:00 DATE: 10/09/2021 20:56 Center INDICATION: - post op COMPARISON: CT chest abdomen pelvis 05/13/2021 TECHNIQUE: AP chest. FINDINGS: Lines, tubes and hardware: P ostoperative appearance of partially visualized cervical fusion hardware with surgical drain projecting right of midline from the neck and coursing outside the [id number] to the right. Lungs and pleura: The lungs are clear. The costophrenic sulci are sharp without effusion. No pneumothorax is identified on this semiupright radiograph. Heart and mediastinum: The h eart size is normal. The mediastinal contours are normal. Bones and soft tissues: No acute abnormality. IMPRESSION: 1. No acute abnormality. 2. Partially visualized cervical fusion hardware and surgical drain. 2021-10-09 EXAM: MRI CERVICAL SPINE WITHOUT CONTRAST [facility] 07:20:00-00:00 EXAM: MRI THORACIC SPINE WITHOUT CONTRAST Center EXAM: MRI LUMBAR SPINE WITHOUT CONTRAST DATE: 10/09/2021 INDICATION: ' - 56M fall, hy peresthesias bilateral LE, urinary retention, paresthesias to bilateral fingertips'. No additional information. COMPARISON: CT cervical spin e performed 6 hours earlier at outside hospital prior to transfer. TECHNIQUE: Multisequence, mu ltiplanar, noncontrast MR images were obtained through the cervical, thoracic, and lumbar spine. IV contrast: None. FINDINGS: Standard numbering with 7 ce rvical, 12 thoracic, and 5 lumbar type vertebral bodies. I do not see any marrow josiah a to suggest occult fracture. There is no ligamentous injury. There is no epidural or subdural hemorrhage. The Vertebral muscles are normal in signal without e vidence of strain. At C5-C6, there is a disc os teophyte complex with a large superimposed right lateral disc extrusion. There is severe stenosis of the central canal with an AP diameter 5 mm and there is critical stenosis of the right lateral canal. There is compression and displacement of the cervical cord with volume loss evident at the disc level, and signal changes present in the right hemicord. There are, in my opinion, dominguez btle signal changes in the cervical cord above the level of the stenosis with T2 abnormality in the lateral and dorsal cord regions with sparing of the central manuel matter an d lateral horns. Similar ac nges may be present in the thoracic cord with sparing of the conus. At C6-C7, there is a disc os teophyte complex with moderate canal stenosis. There is mild flattening remodeling the anterior cord contour. There are no other areas of mechanical stenosis. Changes of anterior discecto my with posterior stabilization by pedicular screws and intersegmental rods present between L4 and S1. Laminectomies present at the same level with marked posterior decompres nita of the spinal canal. Th ere is some epidural scarring in the right lateral recess at the lumbosacral junction resulting in obscuration of the fat planes surrounding the right S1 nerve root, however, there is no displacement or effacement of the nerve root sleeve. There is no mechanical stenosis of the foramina at the fusion levels. IMPRESSION: Critical stenosis of the spi nal canal at C5-C6 secondary to a central and right-sided disc extrusion. Cord signal changes may be present both proximally and distally. Moderate stenosis at C6-C7 due to diffuse disc o steophyte complex. Unremarkable appearance of a lower lumbar fusion with some epidural scarring but no direct evidence of arachnoiditis. 2021-10-09 EXAM: MRI CERVICAL SPINE WITHOUT CONTRAST [facility] 07:20:00-00:00 EXAM: MRI THORACIC SPINE WITHOUT CONTRAST [place] EXAM: MRI LUMBAR SPINE WITHOUT CONTRAST DATE: 10/09/2021 INDICATION: ' - 56M fall, hy peresthesias bilateral LE, urinary retention, paresthesias to bilateral fingertips'. No additional information. COMPARISON: CT cervical spin e performed 6 hours earlier at outside hospital prior to transfer. TECHNIQUE: Multisequence, mu ltiplanar, noncontrast MR images were obtained through the cervical, thoracic, and lumbar spine. IV contrast: None. FINDINGS: Standard numbering with 7 ce rvical, 12 thoracic, and 5 lumbar type vertebral bodies. I do not see any marrow josiah a to suggest occult fracture. There is no ligamentous injury. There is no epidural or subdural hemorrhage. The Vertebral muscles are normal in signal without e vidence of strain. At C5-C6, there is a disc os teophyte complex with a large superimposed right lateral disc extrusion. There is severe stenosis of the central canal with an AP diameter 5 mm and there is critical stenosis of the right lateral canal. There is compression and displacement of the cervical cord with volume loss evident at the disc level, and signal changes present in the right hemicord. There are, in my opinion, dominguez btle signal changes in the cervical cord above the level of the stenosis with T2 abnormality in the lateral and dorsal cord regions with sparing of the central manuel matter an d lateral horns. Similar ac nges may be present in the thoracic cord with sparing of the conus. At C6-C7, there is a disc os teophyte complex with moderate canal stenosis. There is mild flattening remodeling the anterior cord contour. There are no other areas of mechanical stenosis. Changes of anterior discecto my with posterior stabilization by pedicular screws and intersegmental rods present between L4 and S1. Laminectomies present at the same level with marked posterior decompres nita of the spinal canal. Th ere is some epidural scarring in the right lateral recess at the lumbosacral junction resulting in obscuration of the fat planes surrounding the right S1 nerve root, however, there is no displacement or effacement of the nerve root sleeve. There is no mechanical stenosis of the foramina at the fusion levels. IMPRESSION: Critical stenosis of the spi nal canal at C5-C6 secondary to a central and right-sided disc extrusion. Cord signal changes may be present both proximally and distally. Moderate stenosis at C6-C7 due to diffuse disc o steophyte complex. Unremarkable appearance of a lower lumbar fusion with some epidural scarring but no direct evidence of arachnoiditis. 2021[facility]07[facility]08 [facility] ([facility]) Med Order Sheet REPORT #: [id number] REPORT STATUS: Signed DATE: 07/08/21 TIME: 1324 PATIENT: HERB AVENDANO UNIT #: [id number] ROOM #: N.0312 BED: 1 : 65 AGE: 55 SEX: M ATTEND: Chitra Rosas MD ADM AUTHOR: Meri Rosas MD ATTENTION *EDITS and/or ADDENDA must be made in Patient Ke eper for this note. * * Edits and ammendments created in backstitch are not visible * * in Patient Keeper or the legal medical record ([facility]). * Discharge Medication Reconciliation Discharge Meds Rec Completed. No Reconciled Orde rs. 1 3:23 Electronically Signed by Meri Rosas MD on 0 07/08/21 at 1324 ATTENTION *EDITS and/or ADDENDA must be made in Patient [facility] for this note. * * Edits and ammendments created in backstitch are not visible * * in Patient Keeper or the legal medical record ([facility]). * RPT #: [id number] END OF REPORT 2021-07-08 [facility] 13:24:00-00:00 [facility] ([facility] Re[facility]. D/C Summary REPORT #: [id number] REPORT STATUS: Signed DATE: 07/08/21 TIME: 1324 PATIENT: HERB AVENDANO UNIT #: [id number] ROOM #: [id number].0312 BED: 1 : 65 AGE: 55 SEX: M ATTEND: Chitra Rosas MD ADM AUTHOR: Meri Rosas MD ATTENTION *EDITS and/or ADDENDA must be made in Patient [facility] for this note. * * Edits and ammendments created in backstitch are not visible * * in Patient Keeper or the legal medical record ([facility]). * -- PROBLEMS/PROCEDURES -- ADMISSION DATE: 06/26/21 ADMITTING DIAGNOSES: - Chronic back pain - Hypokalemia - Inadvertent durotomy - Lumbar stenosis - S/P lumbar laminectomy - Neuropathic pain - Hypertension - Radiculopathy DISCHARGE DATE: 07/08/21 DISCHARGE DIAGNOSES: - Chronic back pain - Hypokalemia - Inadvertent durotomy - Lumbar stenosis - S/P lumbar laminectomy - Neuropathic pain - Hypertension - Radiculopathy PROCEDURES PERFORMED: see hospital course -- HOSPITAL COURSE -- HOSPITAL COURSE: EXAM- GENERAL: in no apparent distress, in bedside ac ir LUNGS: normal respiratory effort and Clear bilat erally in upper lobes HEART: Regular rate and rhythm ABDOMEN: soft , non-tender, no distension, hypoa ctive bowel sounds present MUSCULOSKELETAL: No deformity, panel instrument repairer strength is 5/5 EXTREMITIES: No clubbing, no cyanosis, no edema . NEUROLOGICAL: No new focal deficits on exam, imp aired coordination, decreased muscle strength in bilateral hip flexors and rig ht knee extensor at 4- out of 5, L KE is 5-/5 left ankle dorsiflexion 4/out of 5 right ankle dorsiflexion 5- out of 5, speech intact . following commands, li ght touch diminished in feet SKIN: Intact without significant rashes on visible areas with post op wound on lumbar spine PSYCHIATRIC: alert and awake . normal affect. Ox 4 GENERAL ASSESSMENT: The patient was admitted for comprehensive acute rehabilitation program after Lumbar Spinal Stenosis with Radiculopathy with weakness, decreased endurance, impaired mobility and ADLs as well as the functional and medical conditions listed below. The patient was admitted to inpatient rehab foll owing the declaration of a national state of emerg ency as issued by the forest fire fighter of [place] on 08/11/2019. PLAN: Admitted for comprehensive a cute rehabilitation program. Ordered PT/OT . Therapy Precautions: falls, routine, safety, spinal precautions,TLSO when out of bed PT: up to 90 min/day, at least 5 days a week, until discharge. Eval and treat. Gait training (with assistive device as needed); Strength and endurance training; Bed mobility and Transfer training; RO M and stretching exercises; Joint preservation and energy conservation techn iques; Static/Dynamic balance training; Home Exercise Program (HEP). OT: up to 90 min/day, at least 5 days a week, until discharge. Eval and treat. BUE strengthening and stretc lisa; ROM exercises; ADL/IADL re-training; training for implementation of adaptive tools and devices to simplify tasks at home and work as needed, Safety with ADLs; Gross/Fine Mot or Movements. Joint preservation and energy conservation techniques; HEP #Lumbar Spinal Stenosis with Radiculopathy - acute, improving. 06/30 discussed therapy progress to date - provided assessment of patient needs to inform the therapy treatment plan. Provided reassurance and encouragement t christian functional goals. Advised pt to focus on improving independence with fun ctional activities that they show room for improvement such as transfers patient is abl e to do bed to wheelchair transfers standby assist to contact-guard using stand pivot and rolling walker. Case discussed with internal medicine, patient had a panic attack yesterday per internal medicine will monitor on telemetry for a few days. Encouraged to use pain medication in cases of pain as his blood pr essure tends to go up if he does not use it and then does therapy. 07/01 case was discussed at rehab team conference today, discharge date is planned for 07/08 with the use of RW for home whic h he already has. Case discussed with CM, nursing and therapy team. Has Lumbar drain in place, still with elevated output, discus sed with Dr. Spear (surgeon) will continue for now. Family training pending with . TLSO when oob. pain regimen will be adjusted to help with therapy. toilet transfer CGA/SBA an d eating independently. 07/02 CGA transfers, amb with RW over 200ft. Drain still with output over 50cc. Pain regimen adjusted and is working better. Bio freeze to shoulders working well, neck pain is improving. nortryptaline at h s is helping for nerve pain. labs reviewed, hbg is improving. 07/03 he is amb with RW over 230ft at S. Drain out put about 230cc in24hr , communicated to Dr. Spear. Transfers are contact-guard assist. Adjusted muscle relaxant to help for neck and back pain, case discussed with internal medicine his anti anxiety medication adjusted per IM. Earnestine erating nortriptyline at bedtime and continues on Lyrica. Hemoglobin cont inues to trend up. 07/04 Case discussed with internal medicine, sanjiv medina, nursing, patient. Drain output this morning was 80 cc and yesterday 180c c. Patient to work on neck exercises and heat packs for the neck. Also will work on the neck C-spine support while in bed, will continue with the mus isabela relaxant. Ambulating with rolling walker at supervision level over 150 fee t. Will adjust muscle relaxant dose at night. 07/07 Case discussed with ther dennis, nursing, patient and Dr. Spear, as well as IM. Output from the drain was 120 cc last ni ght, later on today drain did come out on its own. CT of lumbar pending for today to ev aluate site. Hemoglobin is stable. Baclofen at night is working well. Jame nt is doing lower body dressing at independent level and shower as well . 07/08 discussed with pt on the day of discharge an d address questions and concerns about discharging to home . Reviewed me dications I would prescribe. Advised pt to follow up with PCP within 1 week of discharge and follow up with other consultants as previously instructed by e advisor consultant. Advised pt of possible complications associated with t heir main diagnosis that may occur and to go to the ER for further evaluation if said c omplications do occur. The patient completed a comprehensive rehabilitation program with PT/OT for improving with safety and independence with ADL' s, strength, gait, mobility, transfers, coordination, cognition as we ll as overall safety awareness. By the time of discharge the patient were tolerating th erapies with tolerable pain, the patient was able to met most of their goals. Reviewed all follow-ups and medications for home with patient, CT of the lum bartender helper reviewed is overall normal okay to DC today and see Dr. Spear in off ice. Prescription drug monitoring program site was reviewed and [place] w as prescribed electronically. Patient also to continue on Lyrica. Incision is healing well with no sutures or bart in place. ambulating with therapy w SPC at S to CG. # abnormalities of gait and mobility: Cont thera py PT and OT to address and improve strength, balance, endurance, and fu nctional independence with mobility, transfers, and gait as well as decreas e potential risk of complications such as falls and skin issues. The rapist to assess and provide education for safe use of most appropriate and l east restrictive assistive device. # Hypertension. acute, Cont current meds. Assess BP. Will defer further management to hospitalist. #muscle weakness-PT and OT to eval and treat, re c use of FES to strengthen quads and hamstrings #chronic back pain #Radiculopathy # post op pain: acute, ongoing. adjust current p ain regimen. monitor for daytime sleepiness/confusion. will adjus t regimen as needed to improve therapy tolerance and allow for adequate rest. #Bowel-on bowel regimen #Neuropathic pain will continue with Lyr ica 3 times daily, Nortryptaline at hs #Urinary incontinence bladder training program w sharlene in therapy and make sure that he toilets prior to going to bed has improved incontinence at hs 06/30 #Blood loss anemia postop- [facility] to [facility] CBC and monitor for symptoms of dizziness, chest pain, shortness of breath or lightheadedness. #Status post laminectomy and lumbar fusion-tlso when oob #incidental durotomy during surgery #Leukocytosis resolved # pressure ulcer prevention - Discussed pressure relief regimen with pt/caregiver. Advised pt to turn every 2 hours w sharlene in bed and relieve pressure every 15-20 minutes for at least 30 sec onds while in WC/chair. Diet: regular DVT prophylaxis: lovenox Dispo: to home -- DISCHARGE MEDICATIONS -- ALLERGIES: Tetanus Vaccines and Toxoid (Unknown - Allergy) DISCHARGE MEDICATIONS: Please refer to Discharge Medication list for a complete list of discharge medications Baclofen Tab 5MG PO BEDTIME PRN muscle spasms, D isp: 20 tablet, Refills: 0 HYDROcod/APAP 5/325 Tab ([place] 5/325 Tab) 1 TAB PO bid X 7 days PRN mod to severe pain, Disp: 14 tablet, Refills: 0 Methocarbamol Tab (Robaxin Tab) 500 MG PO TID PA N muscle spasms, Disp: 90 tablet, Refills: 0 Metoprolol Tartrate Tab (Lopressor Tab) 25 MG PO BID, Disp: 60 tablet, Refills: 0 Nortriptyline Cap (Pamelor Cap) 10MG PO BEDTIME (for nerve pain in feet), Disp: 30 capsule, Refills: 0 polyvinyl alcohol 1.4 % eye drops 2 DROP Each Ey e BID PRN dry eyes Pregabalin Cap (Lyrica Cap) 100 MG PO TID, Disp: 90 capsule, Refills: 0 Senna/Docusate Tab 2 TAB PO 2100 (Senna/Docusate Tab (Senokot S Tab)) traZODone Tab (Desyrel Tab) 50MG PO BEDTIME PRN insomnia, Disp: 20 tablet, Refills: 0 ADDTIONAL DETAIL: additional discharge meds can be seen in the discharge med rec note and/or the most recent medical office manager note -- DISCHARGE INSTRUCTIONS -- PK DISCHARGE ORDERS: Discharge Patient - No CQM:PKDC - PK DISCHARGE O RDERS None Details: Order number: [id number] Category: PKDC - PK DISCHARGE ORDERS Order status: Transmitted Details: Does patient have any of the following condition s at discharge? None Ordered by: Meri Rosas MD Jul 08, 2021 1:24pm Entered by: Meri Rosas MD Service date: Jul 08, 2021 1:23pm Details: Order number: [id number] Category: PKDC - PK DISCHARGE ORDERS Order status: Transmitted Details: Discharge order: Yes Discharge to: [facility] Diet: Regular Low Sodium Activity: As Tolerated No Lifting gt;10lbs No Twisting Additional Discharge Routines: PCP Follow-Up Hearing Stenographer Follow-Up Ordered by: Meri Rosas MD Jul 08, 2021 1:24pm Entered by: Meri Rosas MD Service date: Jul 08, 2021 1:23pm Discharge w/Instructions:PKDC - PK DISCHARGE ORD ERS ADDTIONAL DISCHARGE INSTRUCTIONS: The patient was seen and examined by sd, Dr. Alie milligan MD, on the date of discharge. Total time spent: >35 mins spent revi tang chart, case, including time bedside with >50% spent on patient care early childhood education coordinator rdination and counseling. This time includes seeing patient, d/w family, d /w nursing, d/w consults, dw case management, review of m edications/labs/advisor consultant notes/therapy notes/case management notes and coordination of care. -- OBJECTIVE -- VITALS (07/07 13:24 - 07/08 13:24): Temperature C: 36.4 (36.4 - 36.8) Temperature source: Oral Pulse Rate 92 (83 - 94) Respiratory rate: 20 (17 - 20) BP: 126/80 (119/68 - 126/80) I/Os (07/07 07:00 - 07/08 07:00): Net 480 Intake 480 -- DATA -- CLINCAL NOTES REHAB: PT Eval/Daily Note (07/07/21) by Jl Parks Transfers: independent Mobility: Walk Stairs Gait distance: 400 feet REHAB: PT Eval/Daily Note (07/07/21) by Jl Parks E - PT DAILY NOTE - - Range of motion and strength : LOM on trunk spinal precautions Transfers: independent Mobility: Walk Stairs Gait distance: 400 feet Gait device: Extra time for safety Single point cane Rolling walker Mobility description: stairs negoation 12 steps one hand rail at set up Oxygen saturation with activity: 100% Fall recovery: not tested PT daily note comment : THIS PATIENT HAS BEEN ADMITTED TO THE IP REHAB F [facility]ING THE DECLARATION OF A NATIONAL STATE OF EMERGENCY DECLARED BY THE MATTRESS AND BOXSPRINGS SUPERVISOR ON 08/11/2019 S:"I am ready." O:therapeutic activity-pt was independent in donning/doffing TLSO, independent in bed mobility, independent transfers with or without RW. Independent in toilet transfers. Gait training-pt ambulated with RW for 400 feet at modified independent. Then used single tip cane at 200 f [facility]et at [facility]. Stairs negotation-pt ascend/descend stairs 12 steps with single hand rail using single tip cane at modified independent. THerapeutic exercises-pt had sitting PRES for BL E using 2lb AW and orange theraband 25 reps 2 sets of hip f dejuan/ext, hip ab/ad, hip ir/er, knee flex/ext, heel/toe raise s for strengthening and coordination necessary for functional mobility and functional transfers, gait retraining. Car transfers independent. NUSTEP-pt had recumbent cross health and safety trainer for 15 min s level 3 for endurance and activity tolerance. Applied Biofreeze on both cervical paraspinal a gio with manual massage to alleviate pain. A:Pt met all goals. P:Pt to go home with family care on 07/09/2021 Special rehabilitation precautions: Safety/fall Spinal Patient had a fall or an intercepted fall this shift: No Anticipated discharge equipment: RW Gait belt Barriers to discharge: Fall risk Endurance Strategies for D/C barriers: Fall recovery train ing STRENGTHENING/ BALANCE EX PT team conference up date: Bed mobility, Transfers, Gait RW, stairs negotat ion independent - - PT INTERDISCIPLINARY COLLABORATION - - Interdi sciplinary team collaboration this shift: Occupational Therapy Rehab Nursing Physical Therapy Focus area of collaboration this shift: Transfer techniques Ambulation Adaptive equipment Results and continued need for team collaborati on: Handoff to RN EN Treating therapist: MARIA DE JESUSREO: Isaias Parks Credentials: PT, DPT, JASON - - PT DISCHARGE GOALS - - PT goal 1: STG 5D: Patient will don TLSO independently. - goal met PT goal 2: STG 5D: Pat ient will perform bed mobility independently. PT goal 3: L TG 10D: Patient will ambulate independently x150ft with RW. PT goal 4: LTG 10D: Patient will navigate 12 stairs spv. P T goal 5: LTG 10D: Patient will perform tfs indepe ndently with RW - - PT CARE DISCHARGE GOALS - - CARE Rolling left and right discharge goal: Independent (6) CARE Sitting to lying discharge goal: Independent (6) CARE Lying to sitting on side of bed discharge goal: Indepe ndent (6) CARE Sitting to standing discharge goal: Indepe ndent (6) CARE Chair/bed to chair transfer discharge goal : Independent (6) CARE Car transfer discharge goal: Setup/clean-up only (5) CARE Walking 10 feet discharge goal: Independent (6) CARE Walking 50 feet with two turns discharge goal: Independent (6) CARE Walking 150 feet discharge goal: Independen t (6) CARE Walking 10 feet on uneven surface discharge goal : Independent (6) CARE 1 step (curb) discharge goal: Independent (6) CARE 4 steps discharge goal: Independent (6) CARE 12 steps discharge goal: Supervise/touch asst (4) CARE Picking up object discharge goal: Independent (6) CARE [place] 50 feet with two turns discharge goal: Not applicable CARE [place] 150 feet discharge goal: Not appli cable Patients identified discharge goal: "To be able to do things for myself again at home." REHAB: OT Eval/Daily Note (07/05/21) by Dyana Colunga OT DAILY NOTE - - Transfers: SHOWER TRANSFER: COMPLETED AT [facility] UTILIZING GRA B BARS, SHOWER BENCH, AND RW. Activities of daily living: ORAL CARE: COMPLETED STANDING AT S INK WITH RW FOR UNILATERAL SUPPORT. UB DRESSING: COMPLETED AT [facility] ASHIA/DOFFING TLSO, PULLOVER SHIRT. LB DRESS: COMPLETED AT MOD I USING AE PERMACULTURE DESIGNER TO THREAD BUES. UTILLIZES RW FOR UNILATERAL SUPPORT WHEN P ULLING OVER WAIST. FOOTWEAR: MOD I USING AE (SOCK-AID) AND PERMACULTURE DESIGNER TO ASHIA/DOFF SOCKS. OT daily note comment: THIS PATIENT HAS BEEN ADMITTED TO IP REHAB PROGRAM FOLLOWING THE DECLARATION OF A NATIONAL STATE OF EMERGENCY ISSUED BY THE MATTRESS AND [employer] SUPERVISOR ON 020. S: PT SITTING UP IN CHAIR UPON ARRIVAL WITH RIO Rey SEVILLA PRESENT FOR FAMILY TRAINING SESSION. PT REPORTS 8/10 PAIN IN NECK. O: THER ACT: FAMILY TRAINING FOCUSING ON ADLS AND AE EDUCATION USE O F SOCK-AID, PERMACULTURE DESIGNER, LONG HANDLED SPONGE. BED TRA NSFER TRAINING PT ABLE TO DEMO LOG ROLLING AND MAINTA ING SPINAL PRECAUTIONS. SHOWER TRANSFER TRAINING PT COMPLE SHUKRI AT SUPV LEVEL UTILIZING GRAB BARS AND RW FOR BUE SUPPORT. SAFETY EDUCATION IN HOME DURING FUNCTIONAL MOBILITY AND ENERGY CONSERVATION. PT COMPLETED FUNCTIONAL MOBILITY IN ROOM TO GATHER CLOTHING ITEMS MAINTAING SPINAL PRECAUTIONS AND UTILZES R EACHER TO REACH ITEMS ON FLOOR LEVEL. PT COMPLETED FUNCTIONAL MOBILITY <> ROOM AND GY M USING RW AT SUPV LEVEL. THER EX: BIODEX 15 MIN WITH 1 REST BREAK TO INCREASE OVERALL ACTIVITY TOLERANCE. A: PT PROGRESSING TOWARD ADL INDEPENDENCE P: CONT POC Special rehabilitation precautions: Spinal Safety/fall Patient had a fall or an intercepted fall this shift: No Anticipated discharge equipment: Gait belt Barriers to disch arge: Endurance Fall risk Strategies for D/C barriers: Evaluate pain cont rol Fall recovery training STRENGTHEINIG, MOBILITY EX BALANCE EX. - - OT INTERDISCIPLINARY COLLABORATION - - Interdisciplinary team collaboration this shift: Physical Therapy Focus area of collaboration this shift: Ambulat ion Results and continued need for team collaboration: PT COLLAB FOR PT STATUS Treating therapist: [id number]: Dyana Colunga Credentials: [place] Supervising therapist: [id number]: Gloria Diaz Credentials: OTR/Millicent - - OT GOALS - - OT goal 1: STG X7 DAYS: PT WILL PERFORM ORAL HYGIENE WITH SET UP/CLEAN- Ongoing OT goal 2: STG X7 DAYS: PT WILL PERFORM BATHING WITH SPV USING AE TO ADHERE TO SPINAL PRECAUTIONS.- Ongoing OT goal 3: STG X7 DAYS: PT WILL PERFORM UBD WITH SPV- Ongoing OT goal 4: S TG X7 DAYS: PT WILL PERFORM LBD WITH SPV USING AE NEEDED TO ADHERE TO SPINAL PRECAUTIONS- Ongoing OT goal 5: STG X7 DA YS: PT WILL PERFORM FOOTWEAR WITH SPV USING AE NE EDED TO ADHERE TO SPINAL PRECAUTIONS- Ongoing - - CARE D ISCHARGE GOALS - - CARE Eating discharge goal: Independent (6) CARE Oral hygiene discharge goal: Independent (6) CARE Shower/bathe self discharge goal: Setup/clean-up only (5) CARE Upper body dressing discharge goal: Indepe ndent (6) CARE Lower body dressing discharge goal: Indepe ndent (6) CARE Putting on/taking off footwear discharge g oal: Independent (6) Patients identified discharge goal: "To be able to do things for myself again at [facility] REHAB: OT Eval/Daily Note (06/27/21) by Tammy Woodard OT DAILY NOTE - - OT daily note comment: THIS PATIENT HAS BEEN ADMITTED TO THE REHAB [facility] FOLLOWING THE DECLARATION OF [facility] STATE OF EMERGENCY, ISSUED BY THE MATTRESS AND BOXSPRINGS SUPERVISOR ON 08/11/19 s: "Do I have to wear this (referring to TLSO) if I am going to take a shower" Pt greeted in bed upon OT arrival, agreeable to OT evaluation. Pt reports 9/10 back pain with mobility. o: Pt seen for OT evalution; treatment initiated. Pts spouse assisting from supine to sit eob us ing log roll technique with spv, good safety awareness. Pts spouse assisting pt with donning/doffing TLSO. OT educated pt and spouse on the importance of TLSO oob to adhere to spina l precautions. Noted pt did not apply TLSO chest straps requiring education. Pt performed functional mobility from bed to si nk to complete shaving seated. Facilitated safe functional txrs with pt requiring cg assist for shower txr using rw, shower chair and grab bar for support/stability; cg assist for toilet txr usin g rw and raised toilet seat. Unable to complete shower d/t pt scheduled for lumbar debridement. ADLs eating- independent per pt report oral hygiene- cg assist per pts spouse. OT educated pt and spouse on having 2 cups at the s ink when completing oral care to prevent bending wh en performing oral care. bathing- unable to complete, pt taken off unit during OT Evaluation. UBD- mod a, pt requires assistance managing TLSO. LBD- max a per staff report footwear- dependent. Toileting- cg assist (pt had a continent episode of bladder in standing. OT discussed/educated and provided handout of r ecommended DME upon D/C to increase safety. a: Pt presents with decreased strength, impaired fmc d/t parasthesia to malcom hands, endurance, balance, standing tolerance, safety awareness, increase pain with mobility, TLSO oob, and is spinal precautions affecting hi s overall performance with ADLS and mobility. Pt will sofia efit from OT skilled to maximize and achieve optimal level o f independence with ADLs and functional transfers to decrease caregiver burden of care and for a safe discharge home. p: OT services at least 5 days/week for 90/min/day to maximize independence and for improved safety with self c are tasks and functional txrs. Special rehabilitation precautions: Prosthetics /orthotics ROM Safety/fall Spinal Patient had a fall or an intercepted fall this shift: No Anticipated discharge equipment: Sr. Strategic Sourcing Manager Sock aid Shower chair Raised toilet seat Long handled sponge Long handled shoe horn Hand held shower head Barriers to discharge: Pain Home setting Endurance Fall risk Strategies for D/C barriers: Evaluate pain control Sched caregiver training - - OT INTERDISCIPLINARY GAGE ABORATION - - Interdisciplinary team collaboration this shift : Physical Therapy Focus area of collaboration this shift: Morning ADLs Transfer techniques Ambulation Results and continued need for team collaboration: collaborated with Jessica GO re: txrs, ambulation , plof, and adls Treating therapist: MARIA DE JESUSMD: Tammy Woodard Credentials: OTR - - OT GOALS - - OT goal 1: STG X7 DAYS: PT WILL PERFORM ORAL HYGIENE WITH SET U P/CLEAN OT goal 2: STG X7 DAYS: PT WILL PERFORM BATHING WITH SPV USING AE TO ADHERE TO SPINAL PRECAUTIONS. OT goal 3: STG X7 DAYS: PT WILL PERFORM UBD WITH SPV OT goa l 4: STG X7 DAYS: PT WILL PERFORM LBD WITH SPV USING AE NEEDED TO ADHERE TO SPINAL PRECAUTIONS OT goal 5: STG X7 DAYS: PT WILL PERFORM FOOTWEAR WITH SPV U SING AE NEEDED TO ADHERE TO SPINAL PRECAUTIONS - - CARE DISCHARGE GOALS - - CARE Eating discharge goal: Independent (6) CARE Oral hygiene discharge goal: Independent (6) CARE Shower/bathe self discharge goal: Setup/isabela an-up only (5) CARE Upper body dressing discharge goal: Indepe ndent (6) CARE Lower body dressing discharge goal: Indepe ndent (6) CARE Putting on/taking off footwear discharge g oal: Independent (6) Patients identified discharge goal: To be able to do things for myself again at [facility]. - - OT CARE EATING ORAL HYGIENE - - OT CARE assessment for: Admission - - OT CARE EATING - - Patient eats by mouth: Yes Based on clinical judgement, pt unsafe to complete w/o tx intervention: No Eats by mouth independently: Yes Admission eating CARE score: Independent (6) Eats by mouth CARE comment: PER PT REPORT - - OT CARE ORAL HYGIENE - - Patient performed oral hygiene: Yes Based on clinical judgement, pt unsafe to compl ete w/o tx intervention: No Performed oral hygiene independently: No Required setup or cleanup ONLY to perform oral hygiene: No Requir ed spv/verbal cues/CGA ONLY to perform oral hygiene : Yes Admission oral hygiene CARE score: Supervision/t ouch (4) Oral hygiene CARE comment: CG ASSIST PER PTS SP OUSE - - OT CARE ADLS - - OT CARE assessment for: Admission - - OT CARE SHOWER/BATHING - - Patient bathed or showered: No Reason unable to bathe or shower self: Med cond/safety concern Admission bathing CARE score: Not attempted (88 ) Bathing CARE comment: PT OFF UNIT SCHEDULED FOR LUMBAR DEBRIDEMENT/I D - - OT CARE DRESSING UPPER BODY - - Patient dressed/undressed upper body: Yes Based on clinical judgement, pt unsafe to comple te w/o tx intervention: No Dressed/undressed upper body independently: No Required setup or cleanup ONL Y to dress/undress upper body: No Required spv/verbal cues/CGA ONLY to dress/undress upper body: No Co mpleted upper body dressing/undressing: Assistance w/UB O/P ON LY Admission upper body dressing CARE score: Partia l/moderate (3) Dressed/undressed upper body CARE comment: REQU IRES ASSISTANCE MANAGING TLSO - - OT CARE DRESSING LOWER BODY - - Patient dressed/undressed lower body: Yes Based on clinical judgement, pt unsafe to compl ete w/o tx intervention: No Dressed/undressed lower body independently: No Required setup or cleanup ONLY to dress/undress lower body: No Required spv/verbal cues/CGA ONLY to dress/undress lower body: No C ompleted lower body dressing/undressing: Less than 50% of effor t Admission lower body dressing CARE score: Substa ntial/max (2) Dressed/undressed lower body CARE comment: PER STAFF REPORT - - OT CARE FOOTWEAR - - Patient put on/removed footwear: Yes Based on clinical judgement, pt unsafe to comple te w/o tx intervention: No Put on/removed footwear independently: No Required setup or cleanup ONLY to put on/remove footwear: No Required spv/verbal cues/CGA ONLY to put on/remove footwear: No Put on/removed footwear: Pt does no effort Admission footwear CARE score: Dependent (1) Put on/removed footwear CARE comment: PT IS SPI NAL PRECAUTIONS - - OT ASSESSMENT - - Past medical and surgical history: Chronic Back Pain, Multiple Lumbar Surgeries Pre-hospital services utilized: None CARE Self care prior level of function: Indepen dent (3) CARE Functional cognition prior level of functio n: Independent (3) OT prior level of function comment: Prior to admission pt was 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 He lives with his spouse in a [facility] (has a walk in shower and a tub/shower combo). Prior device use: None Occupation/profession: Full-time employed Expected discharge physical layout: One story Tub/shower combo External stairs Shower only Number of external stairs: 5 Railing details: No rails Prior living situation: Home Living with: Family Neurologic status: Alert Oriented to person Oriented to place Oriented to time Oriented to situation Follows complex commands Patient mood and behavi or: Appropriate Social Hand dominance: Right - - NEGLECT/VISUAL FUNCTION - - Visual perception/cognition comment: wfls grossly - - UPPER EXTREMITY FUNCTION - - Upper extremity/endurance comment: MMT: BU E 4/5 FMC: impaired d/t parasthesia to malcom hands AROM: B UE- wfls grossly Endurance/activity earnestine: poor - - NEURO FUNCTION - - Neuro function comment: pt c/o of parasthesia to B hands, more at fingertips - - BALANCE FUNCTION - - Balance static standing: Outside functional limits Balance dynamic standing: Outside functional limits Balance static sitting: Within functional limits Balance dynamic sitting: Outside functional snow its Balance function comment: Balance Static Standing: Fair- Balance Dynamic Standing: Poor Balance Static Sitting: Good Balance Dynamic Sitting: Fair+ OT evaluation results: Pt is a 55 year old male who presented to [facility] for a scheduled TLIF L4-S1 repair of dural tear. Dr. Spear, Orthopedic Surgeon admitted him on 06/20/21 for L4-L5 and L5-S1 internal disk derangement and L4-L5 and L5-S1 lumbar spinal stenosis with radiculopathy as well as wa s found to have an incidental durotomy. He performed a tra nsforaminal lumbar interbody fusion on L4-L5 and L5-S1 as w ell as laminectomy on L4 and L5 and partial on S1. He also repaired the durotomy. Pt seen for OT evaluation, based on pts medical hx review, physical, cognitive, and psychosocial functional performance pt is a high complexity for OT evaluation. Pt presents with decreased strength, impaired fmc d/t parasthesia to malcom hands, endurance, ba kaleb, standing tolerance, safety awareness, increase pain with mobility, TLSO oob, and is spinal precautions affecting his overall performance with ADLS and mobility. Pt will benefit from OT skilled to maximize and achieve optimal level of independence with ADLs and functional transfers to decrease caregiver burden of care and for a safe dischar ge home. 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 Evaluating therapist: : Tammy Woodard Credentials: OTR REHAB: PT Eval/Daily Note (06/27/21) by Jessica Mcqueen PT DAILY NOTE - - Range of motion and strength: Spinal precautions TLSO OOB BLEs grossly 2+ to 3+/5 except ankles 4/5 Transfers: Jessica with RW from EOB, toilet, w/c, car Mobility: Ramp Stairs Walk Gait distance: 12ft, 120ft x2 Gait device: Extra time for safety Gait belt Rolling walker Mobility description: gait with RW spv up/down ramp and 6 stairs spv using bilateral handrails Oxygen saturation with activ ity: 98-100% on RA Fall recovery: unsafe at this time 2/2 spinal precautions PT daily note comment: THIS PATIENT HAS BEEN ADMITTED TO THE I P REHAB PROGRAM FOLLOWING THE DECLARATION OF NATIONAL STATE OF EMERGENCY ISSUED BY THE MATTRESS AND BOXSPRINGS SUPERVISOR ON 08/11/2019. First session, pt crying in pain upon PT arrival to write time on his board. Pt requested to sit up and go to the bathroom. PT assisted pt supine>sit (Jessica), handed pt TLSO which he was able to don but PT tightened it mor e for him. Pt ambulated 12ft to toilet spv, handoff to PCT to attend to pt as he wanted to sit on toilet for a while an d PT had to attend staff meeting. ([id number]) S: PT returned at 0844 for session, pt agreeable to evaluation. O: c/o 6/10 pain to back, BLEs primarily bean sorter ior thigh and knees. THERAC: changed into clothes from w/c with PT a ssist - dep for socks/shoes, maxA for pants+underwear (abl e to pull up in standing), modA for shirt. Car tf Jessica lifting assist from low seat, up/down ramp and 6 5" stairs with bilateral handrails and spv. GAIT [id number] with RW and PT spv. Slow gait speed with decreased nataliia, equal step length but s hort, slightly decreased foot clearance. Upright post ure, good balance with turns and obstacle negotiation. THEREX: 3x10 hip fleixon, LAQ; 3x15 calf raises MODALITIES: PT placed moist hot pack on neck for muscle tension relief. Skin inspected after with mild redness t hat cleared. EDUCATION: PT oriented pt to rehab unit, therap y expectations, safety/fall prevention protocols . Pt receptive to education. A: Patient did well with all activities. Functioning overall at a Jessica to spv level; very motivated to make gains and return to PLOF. Pt left up in bedside recliner with nee ds in reach at end of session. P: Continue PT POC Special rehabilitation precautions: Prosthetics /orthotics ROM Safety/fall Spinal Patient had a fall or an intercepted fall this shift: No Barri ers to discharge: Pain Home setting Strategies for D/C barriers: Evaluate pain control Sched caregiver training PT team conference update: Pt functioning overall at a Jessica to spv level with great potential to reach Annika. - - PT INTERDISCIPLINARY COLLABORATION - - Interdiscipl inary team collaboration this shift: Rehab Nursing Occupational Therapy Focus area of collaboration this shift: Pain Transfer techniques Results and continued need for team collaborati on: Deann RN informed of c/o pain. RN and Melinda granda OT informed of pt's tf status with RW. Signage pos shukri and communication board filled out for further staf f handoff. Treating therapist: [id number]: Krunal Mcqueen Credentials: PT, DPT - - PT DISCHARGE GOALS - - PT goal 1: STG 5D: Patient will don TLSO independently. PT goal 2: STG 5D: Patient will perform bed mobility independently. PT goal 3: L TG 10D: Patient will ambulate independently x150ft with RW. PT goal 4: LTG 10D: Patient will navigate 12 stairs spv. PT goal 5: LTG 10D: Patient will perform tfs indepe ndently with RW - - PT CARE DISCHARGE GOALS - - CARE Rolling left and right discharge goal: Independent (6) CARE Sitting to lying discharge goal: Independent (6) CARE Lying to sitting on side of bed discharge goal: Indepe ndent (6) CARE Sitting to standing discharge goal: Indepe ndent (6) CARE Chair/bed to chair transfer discharge goal : Independent (6) CARE Car transfer discharge goal: Setup/clean-up only (5) CARE Walking 10 feet discharge goal: Independent (6) CARE Walking 50 feet with two turns discharge goal: Independent (6) CARE Walking 150 feet discharge goal: Independen t (6) CARE Walking 10 feet on uneven surface discharge goal : Independent (6) CARE 1 step (curb) discharge goal: Independent (6) CARE 4 steps discharge goal: Independent (6) CARE 12 steps discharge goal: Supervise/touch asst (4) CARE Picking up object discharge goal: Independent (6) CARE [place] 50 feet with two turns discharge goal: Not applicable CARE [place] 150 feet discharge goal: Not appli cable Patients identified discharge goal: To be able t o do things for myself again at home. - - PT CARE TOOL - - PT transfers CARE tool assessment for: Admissi on Patient rolled left and right: Yes Based on clinical judgement, pt unsafe to complete w/o tx intervention: No Rolled left and right independently: No Required setup or cleanup ONLY to roll left and right: No Required spv/verbal cues/CGA ONLY to roll left and right: Yes Admission rolling left and right CARE score: Dominguez pervision/touch (4) Patient performed sitting to lying: Yes Based on clinical judgement, pt unsaf e to complete w/o tx intervention: No Performed sitting to lying independently: No Required set up or cleanup ONLY to go from sitting to lying: No Req uired spv/verbal cues/CGA ONLY to go from sitting to l jermaine: No Completed at least 50% of effort to go from sit ting to lying: Yes Admission sitting to lying CARE score: Partial/ moderate (3) Sitting to lying CARE comment: BLE mgmt Patient performed lying to sitting on side of bed: Yes Based on clinical judgement, pt unsafe to complete w/o tx intervention: No Performed lyin g to sitting on side of bed independently: No Requ ired setup or cleanup ONLY to go from lying to side o f bed: No Required spv/verbal cues/CGA ONLY to go from lyi ng to side of bed: No Completed at least 50% of effort for lying to s itting on side of bed: Yes Admission lying to sitting CARE score: Partial/ moderate (3) Lying to sitting CARE comment: BLE mgmt, trunk Patient performed sit to stand: Yes Based on cl inical judgement, pt unsafe to complete w/o tx interven tion: No Performed sit to stand independently: No Required setup or cleanup ONLY to go from sit t o stand: No Required spv/verbal cues/CGA ONLY to go from s it to stand: No Completed at least 50% of the effort t o go from sit to stand: Yes Admission sitting to sta nding CARE score: Partial/moderate (3) Sit to stand CARE comment: min-CGA Patient transferred to/from bed to chair: Yes B ased on clinical judgement, pt unsafe to complete w/o tx intervention: No Transferred to/from bed to chair independently: No Required setup or cleanup ONLY to transfer to/ from bed to chair: No Required spv/verbal cues/CGA ONLY to t ransfer to/from bed to chair: No Completed at least 50% of effort to transfer to/from bed to chair: Yes Admission bed to chair/WC transfer CARE score: Partial/moderate (3) Bed to/from chair transfer CARE comment: Jessica Patient transferred in and out of car: Yes Based on clinical judgement, pt unsafe to compl ete w/o tx intervention: No Transferred in and out of car independently: No Required setup or c leanup ONLY to transfer in and out of car: No Required spv/verbal cues/CGA ONLY to transfer in and out of car: No Completed at least 50% of the effort to transfer in and out of car: Yes Admission car transfer CARE score: Partial/mode rate (3) Car transfer CARE comment: Jessica - - PT CARE WALKING - - PT mobility CARE tool assessment for: Admission Patient walked minimum of 10 feet: Yes Based on clinical judgement, pt unsafe to co mplete w/o tx intervention: No Walked 10 feet independently: No Required setup or cleanup ONLY to walk 10 feet: No Required spv/verbal cues/CGA ONLY to walk 10 fee t: Yes Admission walk 10 ft CARE score: Supervision/rojas ch (4) Walked 10 feet CARE comment: RW Patient walked minimum of 50 feet AND made two turns: Yes Based on clinical judgement, pt unsafe to complete w/o tx intervention: No Walked 50 feet AND made two turns independently : No Required setup or cleanup ONLY to walk 50 feet AND two turns: No Required spv/verbal cues/CGA ONLY to walk 50 fee t AND two turns: Yes Admission walk 50 ft with two turns CARE score: Supervision/touch (4) Walked 50 feet AND two turns CARE comment: RW Patient walked minimum of 150 feet: No Not walking 150 feet for the following reason: Med cond/safety concern Admission walk 1 50 feet CARE score: Not attempted (88) Walked 150 feet CARE comment: fatigue, pain in b ack and BLEs Patient walked minimum of 10 feet on uneven dominguez rfaces: Yes Based on clinical judgement, pt unsafe to compl ete w/o tx intervention: No Walked 10 feet on uneven surface independently: No Required setup or cleanup ONLY to walk 10 feet on uneven surface: No Required spv/verbal c ues/CGA ONLY to walk 10 feet on uneven surface: Yes Admission walk 10 ft on uneven surface CARE score: Supervision/touch (4) Walked 10 ft on uneven surface CARE comment: handrails Patient went up/down/over curb or 1 step: Yes Based on clinical judgement, pt unsafe to compl ete w/o tx intervention: No Patient went up/down/over curb or 1 step independently: No Required setup/cleanup ONLY to go up/down/over curb or 1 step: No Required spv/jose luis bal cues/CGA ONLY to go up/down/over curb or 1 step: Yes Admi ssion stepping over curb/step CARE score: Supervision/touch (4) Stepped over curb or up/down one step CARE comment: handrails Patient went up and down minimum of 4 steps: Ye s Based on clinical judgement, pt unsafe to compl ete w/o tx intervention: No Went up and down 4 steps independently: No Required setup or nixon nup ONLY to go up and down 4 steps: No Required spv/verbal cues/CGA ONLY to go up and down 4 trevor ps: Yes Admission step up and down 4 steps CARE score: Supervision /touch (4) Went up and down 4 steps CARE comment: handrail s Patient went up and down minimum of 12 steps: No Reason unable to step up and down 12 steps: M ed cond/safety concern Admission step up and down 12 steps CARE score: Not attempted (88) Went up and down 12 steps CARE comment: fatigue Patient picked up small object from floor from standing position: No Reason unable to garbage pick up man small object from standing: Med cond/safety c oncern Admission garbage pick up man object from standing CARE score: Not att empted (88) Picked up object from standing position CARE com ment: spinal precautions Patient uses wheelchair or scooter: No Admission pricing actuary wheelchair CARE score: 0 - - PT ASSESSMENT - - Past medical and surgical history: Chronic Back Pain, Multiple Lumbar Surgeries Pre-hospital services utilized: None CARE Indoor mobility prior level of function: I ndependent (3) CARE Stairs prior level of function: Independe nt (3) PT prior level of 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 Prior device use: None Occupation/profession: Full-time employed Expected discharge physical layout: One story Tub/shower combo External stairs Number of external stairs: 5 Railing details: No rails Prior living situation: Home Living with: Family Neurologic status: Alert Oriented to person Oriented to place Oriented to time Oriented to situation Follows complex commands Patient mood and behavior: Appropriate Social - - NEUROLOGICAL - - Tone LUE: Within functional limits Tone RUE: Within functional limits Tone LLE: Within functional limits Tone RLE: Within functional limits Trunk core stability: Outside functional limits Coordination finger to nose, left: Within funct ional limits Coordination finger to nose, right: Within func tional limits Coordination heel to bone, left: Outside functional limits Coordination heel to bone, right: Outside functional limits Coordination ra pid alternating movement, left: Within functional limits Coordi nation rapid alternating movement, right: Within functional l imits Reflexes LUE: Within functional limits Reflexes RUE: Within functional limits Reflexes LLE: Within functional limits Reflexes RLE: Within functional limits Neurological comment: heel to bone limited by pain - - SENSATION - - Sensation sharp/dull: Within functional limits Sensation hot/cold: Within functional limits Sensation asterognosis: Within functional limits Sensation proprioception: Outside functional li mits Sensation glove/stocking paresthesia: Outside f unctional limits Light touch sensation LUE: Outside functional l imits Light touch sensation RUE: Outside functional limits Light touch sensation LLE: Outside functional limits Light touch sensation RLE: Outside functional limits Light touch sensation anterior trunk: Within functional limits Light touch sensation posterior trunk: Within functional snow its Dermotome involved: No Sensation comment: tingl ing to BLEs from thighs to feet stocking paresthesia to R foot impaired proprioception R foot bilateral hand numbness, worst at fingertips - - MUSCULOSKELETAL - - Range of motion LUE: Within functional limits Range of motion RUE: Within functional limits Range of motion LLE: Within functional limits Range of motion RLE: Within functional limits Range of motion spine: Outside functional limits Muscle strength LUE: Within functional limits Muscle strength RUE: Within functional limits Muscle strength LLE: Outside functional limits Muscle strength RLE: Outside functional limits Endurance/activity tolerance: Outside functiona l limits Musculoskeletal/endurance comment: decreased endurance MMT: R hip ext/flex 3+/5, abd/add 3+/5 R knee ext/flex 3/5 R ankle PF/DF 4/5 L hip flex/ext 3/5, abd/add 3+/5 L knee ext 2+/5, flex 3/5 L ankle PF/DF 4/5 - - BALANCE - - Balance static standing: Within functional snow its Balance dynamic standing: Outside functional li mits Balance static sitting: Within functional limits Balance dynamic sitting: Within functional limits Balance function commen t: Sitting Good+ standing Good- PT special tests: As noted above Mobility performance: Rolling L/R spv, supine<>s it Jessica for BLEs, trunk STS, tfs Jessica from bed, w/c, toilet Ambulated with RW spv x12ft (bed>toilet) and [id number] in hallway spv Up/down ramp and 6 stairs with bilateral handrails CGA-s pv PT evaluation results: Herb Avendano is a 55 year old male who presented to [facility] for a scheduled TLIF L4-S1 repair of dural tear . He has a PMHx significant for chronic back pain and has had multiple lumbar surgeries. Dr. Spear, Orthopedic Surgeon admitted him on 06/20/21 for L4-L5 and L5-S1 internal disk derangement and L4-L5 and L5-S1 lumbar spinal stenosis with radiculopathy as well as was found to have an in cidental durotomy. He performed a transforaminal lumbar interbody fusion on L4-L5 and L5-S1 as well as laminectom y on L4 and L5 and partial on S1. He also repaired the durotomy. The injuries resulted from a fall at work and failed outpatient conservative treatment. 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 C norberto, pt requires Jessica to spv for all mobility with a RW . Pt will benefit from skilled PT in an IPR setting to ad dress deficits in strength, endurance, and balance t o make gains towards PLOF and safely d/c home. 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 Evaluating therapist: [id number]: Jessica Mcqueen Credentials: PT, DPT LABS CBC W/AUTO DIFF (07/07/21 06:50) WHITE BLOOD CELL 7.2 RED BLOOD CELL 2.53 L HEMOGLOBIN 10.6L L HEMATOCRIT 30.7L L MEAN CELL VOLUME 121 H MEAN CELL HGB 41.9 H MEAN CELL HGB CONCENTRATION 34.5 H RED CELL DISTRIBUTION WIDTH 12.8 PLATELET COUNT 498H H MEAN PLATELET VOLUME 10.2 NEUTROPHIL % 68.4 IMMATURE GRANULOCYTE % 0.3 LYMPHOCYTE % 21.0 MONOCYTE % 5.9 EOSINOPHIL % 3.6 BASOPHIL % 0.8 NUCLEATED RBC % 0.0 NEUTROPHIL # 4.9 LYMPHOCYTE # 1.52 MONOCYTE # 0.4 EOSINOPHIL # 0.3 BASOPHIL # 0.1 POLYCHROMASIA 1+ H MACROCYTOSIS 2+ H PLATELET MORPHOLOGY NORM HGBA1C - GLYCOSYLATED HGB (07/07/21 06:50) GLYCOSYLATED HEMOGLOBIN (HA1C) 4.9 BASIC METABOLIC PANEL (07/07/21 06:50) SODIUM 137 POTASSIUM 3.6 CHLORIDE 102 CARBON DIOXIDE 26 GLUCOSE 124H H BLOOD UREA NITROGEN 15 GLOMERULAR FILTRATION RATE >=60 max estimate CREATININE 0.[address] 9[address] L-SPINE W/CONTRAST (06/22/21 16:45) FINDINGS: There are 5 nonrib-bearing lumbar vert ebrae. Preserved lumbarlordotic curvature. No evidence of acute c ompression fracture orposterior element fracture. Prior discectomy a t L4-L5 and L5-S1, laminectomies at L4 and L5, andposterior instrum ented fusion from L4 through S1. The fusion hardwareappears intact and in goo d position. Paraspinal bone grafts are alsopresent around the fusion rods. P ostsurgical soft tissue swellingmixed with some emphysema at the level o f the surgery. There is noworrisome collection in th e area. Level by level evaluation: T11-T12: No disc bulge calcification. Ligamentum flavumthickening /calcification that result in mild posterior thecal saceffacement. Patent fora jessica. T12-L1: No disc bulge/herniation or degenerative change. Patent canaland foramina.L1-L2: No disc bulge/herniation or degenerative change. Pa tent canaland foramina.L2-L3: No disc bulge/herniation. Mild ligament flavum t hickening andcalcification. Patent canal and foramina.L3-L4: No disc bulge/h erniation or significant degenerative changes. Patent canal and foramina. L4-L5: Post discectomy and surgical fusion. There is bone graftmaterial in the left lateral canal space and also and left foramenthat causes mild to mod erate left foraminal stenosis and possibly mildcanal stenosis. The right you en is patent. L5-S1: Mild residual endplate marginal o steophytes and facet arthrosisthat appears to cause mild to moderate bilateral frontal stenosisworse on the right. The bony canal appears patent but the canal spaceevalua tion is limited due to streak artifact created by fusionhardware. Moderate bilateral SI joint degenerative changes. CT L-SPINE W/O CONTRAST (07/08/21 00:02) CONCLUSION: The postoperative levels do not show focal fluid collectionposteriorly and there is no evidence o f spinal stenosis although thereis substantial artifact from the hardware which limits detailevaluation of the central canal. XR C-SPINE 2-3 VIEWS (07/03/21 17:41) FINDINGS: AP, lateral, and open-mouth odontoid v iews of the cervicalspine. Vertebral bodies normal in height. Mild straight ening of the cervicallordosis There is no acute fracture o r dislocation. No focal osseouslesions are evident. No prevertebral soft tissue swelling. Anterioros teophytes and C5 and C6 with mild degenerative disc space narrowingat C5-C6. Facet and uncovertebral arthrosis most notable at C3-C4,C4-C5 and C5-C6. -- ATTESTATION -- TIME SPENT ON PATIENT CARE: - Direct 35 minutes - > 50% of time spent on Counseling/Care Coordi nation CARE ACTIVITIES / CARE COORDINATION: - I have reviewed the history and repeated the stokes elements - I have seen and examined this patient - I have reviewed the progress in the clinical course since the last examination - I have discussed the madelyn ent's condition with other members of the care team Signed in PatientKeeper by Meri Rosas MD on 07/08/21 at 14:54 at 1454 ATTENTION *EDITS and/or ADDENDA must be made in Patient [facility] for this note. * * Edits and ammendments created in [facility] are not visible * * in Patient Keeper or the legal medical record ([facility]). * RPT #: [id number] END OF REPORT 2021-07-08 [facility] 12:52:00-00:00 [facility] ([facility]) Med Order Sheet REPORT #: [id number] REPORT STATUS: Signed DATE: 07/08/21 TIME: 1252 PATIENT: HERB AVENDANO UNIT #: [id number] ROOM #: [id number].0312 BED: 1 : 65 AGE: 55 SEX: M ATTEND: Chitra Rosas MD ADM AUTHOR: Meri Rosas MD ATTENTION *EDITS and/or ADDENDA must be made in Patient [facility] for this note. * * Edits and ammendments created in [facility] are not visible * * in Patient Keeper or the legal medical record ([facility]). * Discharge Medication Reconciliation DISCHARGE MEDICATION LIST HYDROcod/APAP 5/325 Tab ([place] 5/325 Tab) Dose: 1 TAB PO bid X 7 days PRN mod to severe p ain, Disp: 14 tablet, Refills: 0 Baclofen Tab Dose: 5MG PO BEDTIME PRN muscle spasms, Disp: 2 0 tablet, Refills: 0 Metoprolol Tartrate Tab (Lopressor Tab) Dose: 25 MG PO BID, Disp: 60 tablet, Refills: 0 polyvinyl alcohol 1.4 % eye drops Dose: 2 DROP Each Eye BID PRN dry eyes Pregabalin Cap (Lyrica Cap) Dose: 100 MG PO TID, Disp: 90 capsule, Refills: 0 Nortriptyline Cap (Pamelor Cap) Dose: 10MG PO BEDTIME, Disp: 30 capsule, Refill s: 0 - for nerve pain in feet New: Senna/Docusate Tab (Senokot S Tab) Dose: 2TAB PO 2100 traZODone Tab (Desyrel Tab) Dose: 50MG PO BEDTIME PRN insomnia, Disp: 20 ta blet, Refills: 0 Hosp: Methocarbamol Tab (Robaxin Tab) Dose: 500 MG PO TID PRN muscle spasms, Disp: 90 tablet, Refills: 0 STOPPED HOSPITAL MEDICATIONS Dc'd: Acetaminophen Tab (Tylenol Tab) 650MG PO Q 4H PRN pain 1-3/temp > 100.5/headacheDc'd: ALPRAZolam Tab (Xanax Tab) 0 .25MG PO TID PRN agitation or anxietyDc'd: Bisacodyl Supp (Dulcolax Supp) 1 0MG Rectal DAILY PRN constipationDc'd: hydrALAZINE Inj (Apresoline In j) 10MG IV Q6H PRN sbp >180 or dbp >110Dc'd: Mag/Al/Simeth Oral Liquid (Maal ox Max Oral Liquid) 30ML PO Q4H PRN indigestion/heartburnDc'd: Melatonin Tab 3MG PO BEDTIME PRN insomniaDc'd: Polyethylene Glycol Powder (Mirala x Powder) 1PKT PO DAILY PRN constipation Electronically Signed by Meri Rosas MD on 0 07/08/21 at 1252 ATTENTION *EDITS and/or ADDENDA must be made in Patient [facility] for this note. * * Edits and ammendments created in [facility] are not visible * * in Patient Keeper or the legal medical record ([facility]). * RPT #: [id number] END OF REPORT 2021-07-08 [facility] 12:05:00-00:00 [facility] ([facility] Internal Med. Progress Note REPORT #: [id number] REPORT STATUS: Signed DATE: 07/08/21 TIME: 1205 PATIENT: HERB AVENDANO UNIT #: [id number] ROOM #: N.0312 BED: 1 : 65 AGE: 55 SEX: M ATTEND: Chitra Rosas MD ADM AUTHOR: Mara Paiz MSN ATTENTION *EDITS and/or ADDENDA must be made in Patient [facility] for this note. * * Edits and ammendments created in [facility] are not visible * * in Patient Keeper or the legal medical record ([facility]). * -- CO-SIGNATURE -- COMMENTS: Case discussed with ROTARY SHEAR OPERATOR. Agree with the findings and plan as documented. Moderate complexity. Signed in PatientKeeper by ELI DUMONT DO on 01/19 at 16:09 -- ASSESSMENT AND PLAN -- GENERAL ASSESSMENT: Chronic back pain secondary to L4-S1 lumbar sten osis ->Improving - s/p transforaminal lumbar interbody fusion, L4 -S1, L4-L5 laminectomy, S1 partial laminectomy, and posterior spinal fusion , L4 to S1 on 06/20/[address] Spear - CT L spine on 06/22/21 stable per ortho - restrictions per ortho; TLSO brace when OOB - Pain control - IPR - drain dislodged on 07/07 - repeat CT of the L-spine on 07/07 with no acute findings Incidental durotomy - s/p repair of incidental durotomy on 06/20/21 Hypertension - BP stable - continue metoprolol -We will control pain, seems to have hypertensio n 07/02 pain Hypokalemia - replace PRN Leukocytosis - Resolved; likely reactive Post-op blood loss anemia - Hgb stable - transfuse for hgb less than 7.0 Constipation - continue bowel regimen - encourage ambulation Anxiety related to physical condition ?Panic Attack on 06/29 - EKG, troponin negative - Xanax 0.25 TID PRN - reassurance given Insomnia - Trazodone 50 mg PRN DVT Proph - lovenox full code NOK: Dorie Avendano, , Dispo: Per Rehab. Anticipated DC on 07/08. -- SUBJECTIVE -- PATIENT NARRATIVE: Patient seen and examined at the bedside. p resent. Discussed DC planning with patient. -- OBJECTIVE -- VITALS (07/07 15:08 - 07/08 15:08): Temperature C: 36.4 (36.4 - 36.8) Temperature source: Oral Pulse Rate 92 (83 - 94) Respiratory rate: 20 (17 - 20) BP: 126/80 (119/68 - 126/80) I/Os (07/07 07:00 - 07/08 07:00): Net 480 Intake 480 -EXAM- GENERAL: Well developed, well nourished, in no a pparent distress. HEAD: Normocephalic, atraumatic. EYES: PERRL, EOM intact, conjunctiva and sclera clear, without nystagmus, lids normal. EARS: grossly normal hearing. NOSE: No deformity, no discharge, no inflammatio n, no lesions. MOUTH: Oropharynx without deformities or lesions , normal mucosa.. LUNGS: Clear bilaterally with normal respiratory effort. HEART: Regular rate and rhythm, normal S1, S2, n o murmurs, no rubs, no gallops, no clicks. ABDOMEN: Soft, non-tender, no organomegaly, no m asses noted. MUSCULOSKELETAL: No deformity, no scoliosis note d of thoracic or lumbar spine, joint ROM grossly normal. TLSO Brace in place EXTREMITIES: No clubbing, no cyanosis, no edema. PULSES: Pulses normal in all extremities. SKIN: Lower back incision intact with Steri-Strips PSYCHIATRIC: Alert and oriented to time, person, place. Normal mood and affect, intact judgment and insight, anxious -- DATA -- MEDICATIONS SENNA/DOCUSATE SODIUM 2 TAB PO 2100 PREGABALIN 100 MG PO TID methocarbamoL 750 MG PO TID METOPROLOL TARTRATE 25 MG PO BID traZODone HCL 50 MG PO BEDTIME PRN NORTRIPTYLINE HCL 10 MG PO BEDTIME POLYVINYL ALCOHOL 1.4% 2 DROP EACH EYE BID (PRN) MAG HYDROX/AL HYDROX/SIMETH 30 ML PO Q4H PRN MELATONIN 3 MG PO BEDTIME PRN ALPRAZolam 0.25 MG PO TID PRN polyethylene glycoL 3350 1 PKT PO DAILY PRN HYDROcodone BITARTRATE/APAP 1 TAB PO 0800,1300 ACETAMINOPHEN 650 MG PO Q4H PRN bisacodyL 10 MG RECTAL DAILY PRN hydrALAZINE HCL 10 MG IV Q6H PRN BACLOFEN 5 MG PO BEDTIME PRN BACLOFEN 5 MG PO BEDTIME TEST RESULTS CT L-SPINE W/O CONTRAST (07/08/21 00:02) CT L-SPINE W/O CONTRASTCT LUMBAR SPINE M ultiplanar imaging of the lumbar spine was performed withoutcontrast. Radiation dose op timization was achieved by protocols in accordancewith standard of practice , department policies and transfer and line up worker'srecommendations with one or more o f the following: Automated exposurecontrol, adjustment of KVP and MAS by ag e and weight, iterativereconstruction technique. DLP: 552 mGy/ cm HISTORY PROVIDED: Previous surgery. Increasing pain. COMPARISON: P atient had CT lumbar spine June 22, 2021 FINDINGS: T12-L1: The disc is n ormal in size and configuration. There is no discherniation or bul ge. Facets demonstrate no significant arthrosis.There is no spinal or foraminal stenosis. L1-L2: The disc is normal in size and configuration. There is no discherniation or bulge. Facets demonstrate no significant arthrosis.Ther e is no spinal or foraminal stenosis. L2-L3: The disc is normal in size and configuration. There is no discherniation or bulge. Facets demonstrate no s ignificant arthrosis.There is no spinal or foraminal stenosis. L3-L4: The disc is normal in size and configuration. There is no discherniation or bul ge. Facets demonstrate no significant arthrosis.There is no spinal or fora mary stenosis. L4-L5: Pedicle screws are nicely positioned in L4 and L 5. Interbody grafting is evident. Wide laminectomy allows for goodexpansi on of the central canal. Detail is obscured by hardware andpostoperative changes. There apparently has been interval surgerywith removal of some bone g raft material noted at this level on theprior exam. L5-S1: Pedicle screws ar e nicely positioned in L5 and S1. Interbody graft is evident. There is wid e laminectomy posteriorlyallowing for good expansion of the ce ntral canal. At the operated levels no focal fluid collection is identifiedpo steriorly although some soft tissue swelling as might be expected isappreciat ed. CONCLUSION: The postoperative levels do not show focal fluid collectionposteriorly and there is no evidence of spinal stenosis although thereis substantial artifact from the hardware which limits detailevaluation of the ce ntral canal. Reported by: SYDNI Chengigned by: Hector Cooney MD ---- ----- CT L-SPINE W/O CONTRASTORDERED PROVIDER: Mara Paiz DATE: 07/08/2021FACILITY: [facility]STATUS: Signed Exam Proce [id number] CT/CT L-SPINE W/O CONTRAST Signed: Black Jul 08 12:32pm -- QUALITY -- -PREVENTIVE BMI SCREENING- PATIENT BMI: 25.7 Normal BMI - no follow up needed -VTE PROPHYLAXIS -GENERAL- Yes TYPE OF VTE Lovenox Signed in PatientKeeper by Mara Paiz on 07/08/21 at 15:10 Cosigned by ELI DUMONT DO on 07/08/21 at 16:09 at 1609 Electronically Signed by Eli Dumont DO on 07/08 at 1609 ATTENTION *EDITS and/or ADDENDA must be made in Patient Ke eper for this note. * * Edits and ammendments created in [employer] are not visible * * in Patient Keeper or the legal medical record ([facility]). * RPT #: [id number] END OF REPORT 2021-07-08 [facility] 11:04:00-00:00 [facility] ([facility]) Rehab Team Conference REPORT#:[id number] REPORT STATUS: Signed DATE:07/08/21 TIME: 1104 PATIENT: HERB AVENDANO UNIT #: [id number] ROOM: [facility] BED: 1 : 65 AGE: 55 SEX: M ATTEND: Chitra Rosas MD ADM AUTHOR: Meri Rosas MD * ALL edits or amendments must be made on the el ectronic/computer document * Rehabilitation Team Conference Weekly Team Conference Team conf information: Date of conference: 07/08/21 Conference type: Interim Conference scribe: Sofia Wright RN INTERDISCIPLINARY TEAM MEETING PARTICIPANTS: TITLE NAME MD NAIMA Corbett RN PT Latanya Jefferson, PT OT Gloria Diaz OT CM/ALEXSANDER Moss RN [facility] Etta Melara, end frazer (8) Staff (9) Staff (10) Staff (11) OTHER NAME CREDENTIALS 1 2 3 4 FUNCTIONAL CHANGE: TYPE ADMISSION TOTAL INTERIM TOTAL CHANGE Self care 20 42 22 Transfer 22 42 20 Mobility 23 48 25 Wheelchair distance: 200 FT Mobility description: stairs negoation 12 steps one hand rail at set up BOWEL AND BLADDER STATUS: Bowel continence admission rating: Always contin ent Bladder continence admission rating: Incont less than daily Bowel and bladder team conference update : PT IS CONTINENT OF BOWEL AND BLADDER INTERDISCIPLINARY TEAM UPDATES: JAZMIN team conference update: ROOM AIR, INCISIONS IN LOWER BACK, CT OF SPINE TODAY. CONTINENT X2, SCHEDULE NARCO AND XANAX. PT team conference update: Bed mobility, Transfers, Gait RW, stairs negotation independent SHOULDER PAIN, T LSO WITH SPINAL PRECAUTIONS AND HE IS COMPLIANT. NO BARRIERS TO DISCHARGE, INDEPENDENT USING THE RW OT team conference update: PT HAS PROGRESSED AND MET GOALS IS NOW INDEPENDENT FOR ALL ADLS. PLANS TO D/C 07/08/2021. ANTICIPATED DME SEVERO ENRIQUEZ, BSC. FAMILY TRAINING COMPLETED 07/05 WITH DORIE. QUYEN Mcdaniels MOTR COORDINATION OF UE ST team conference update: CM or SW team conference upd ate: LIVES WITH AND ON IN A SINGLE STORY HOME. Other discipline update 1: P ENDING CT, AND ORTHO CONSULT TO BIG FLUID COLLECTION IN INCISION AREA.HE IS DRAINING FLUID AROUND THE DRAIN. Other discipline update 2: Other discipline update 3: REHAB DC GOALS: Patient's identified discharge goal: "To be able to do things for myself again at home." Eating discharge goal: Independent (6) Shower/bathe self discharge goal: Setup/clean-u p only (5) Upper body dressing discharge goal: Independent (6) Lower body dressing discharge goal: Independent (6) Chair/bed to chair transfer discharge goal: Ind ependent (6) Transfer on/off toilet or commode discharge goa l: Supervise/touch asst (4) Walking 50 feet with two turns discharge goal: Independent (6) Walking 150 feet discharge goal: Independent (6 ) Four steps discharge goal: Independent (6) Twelve steps discharge goal: Supervise/touch as st (4) [place] 150 feet discharge goal: Not applicabl e Goal 1 - Bowel function: Continent of stool Goal 2 - Bladder function: Continent of all blad william episodes Nursing goal 3: Nursing goal 4: Nursing goal 5: DISCHARGE PLANNING: Barriers to discharge: Fall risk, Endurance Strategies for D/C barriers: Fall recove ry training, STRENGTHENING/ BALANCE EX Estimated length of stay in days: Anticipated discharge date: 07/08/21 Discharge date adjustment comment: PENDING RESUL TS AND CONTINUED DRAINAGE. Identified financial and/or community resource n eeds: Family/Caregiver training days: WILL SCHEDULE [place] day (DATE): 07/07/21 Expected discharge destination: Home Anticipated services upon discharge: Home health , Outpatient, Occupational therapy, Physical therapy Anticipated discharge equipment: RW, Gait belt Impairment group: neurologic conditions NOTE Document ONLY ONE Impairment Group Neurologic conditions: other neuro conditions Etiologic diagnosis: Lumbar spinal stenosis w Radiculopathy Review of comorbidities: see below MD Review/Recommendations Attestation: This interdisciplinary team conference was led ning fleming and I concur with all decisions made during the team conference and re visions to the individualized overall plan of care. IRF cont stay criteria 07/08 case was discussed at re hab team conference today, discharge date is planned for today vs tmrw depending on CT lumbar and ongoing drainage at site with the use of RW for home. Case discussed with CM, nursing and therapy team.CT lumbar was done this am pending results. Discussed with Dr. Spear yesterday. Hbg is stable, transfers at I level with RW, TLSO when oob. walking with RW over 300ft. drain came out on its own yesterday at lumbar si te. Electronically Signed by Meri Rosas MD on at 1104 RPT #:[id number] END OF REPORT [facility]07[facility]00 [facility] ([facility] Internal Med. Progress Note REPORT #: [id number] REPORT STATUS: Signed DATE: 07/07/21 TIME: 1602 PATIENT: HERB AVENDANO UNIT #: [id number] ROOM #: N.[facility] BED: 1 : 65 AGE: 55 SEX: M ATTEND: Chitra Rosas MD ADM AUTHOR: Mara Paiz MSN ATTENTION *EDITS and/or ADDENDA must be made in Patient Ke eper for this note. * * Edits and ammendments created in backstitch are not visible * * in Patient Keeper or the legal medical record ([facility]PF). * -- CO-SIGNATURE -- COMMENTS: Agree with the findings and plan as docu mented by Mara Paiz NP. Patient discussed with ROTARY SHEAR OPERATOR. Moderate complexity. Signed in PatientKeeper by ELISA DUBOIS DO on 07/08/21 at 15:00 -- ASSESSMENT AND PLAN -- GENERAL ASSESSMENT: Chronic back pain secondary to L4-S1 lumbar sten osis ->Improving - s/p transforaminal lumbar interbody fusion, L4 -S1, L4-L5 laminectomy, S1 partial laminectomy, and posterior spinal fusion , L4 to S1 on 06/20/[address] Spear - CT L spine on 06/22/21 stable per ortho - restrictions per ortho; TLSO brace when OOB - Pain control - IPR - drain dislodged on 07/07 - repeat CT of the L-spine on 07/07 pending Incidental durotomy - s/p repair of incidental durotomy on 06/20/21 Hypertension - BP stable - continue metoprolol -We will control pain, seems to have hypertensio n 07/02 pain Hypokalemia - replace PRN Leukocytosis - Resolved; likely reactive Post-op blood loss anemia - Hgb stable - transfuse for hgb less than 7.0 Constipation - continue bowel regimen - encourage ambulation Anxiety related to physical condition ?Panic Attack on 06/29 - EKG, troponin negative - Xanax 0.25 TID PRN - reassurance given Insomnia - Trazodone 50 mg PRN DVT Proph - lovenox full code NOK: Dorie Avendano, , Dispo: Per Rehab. Anticipated DC on 07/08. -- SUBJECTIVE -- PATIENT NARRATIVE: Patient seen and examined this morning. He state s that he noticed that he has been having bleeding around his drain site. He r eports increased lumbar pain and bilateral lower extremity pain. Albina pollard site inspected this morning. Nursing informed later on this after noon that the patient drain became dislodged. CT of the L-spine pending. Case discussed with rehab hola kim who states that she spoke to the orthopedic surgeon regarding the pa tient today -- OBJECTIVE -- VITALS (07/06 16:03 - 07/07 16:03): Temperature C: 36.4 (36.3 - 36.6) Temperature source: Oral Pulse Rate 95 (79 - 95) Respiratory rate: 18 (16 - 18) BP: 124/78 (114/64 - 138/81) I/Os (07/06 07:00 - 07/07 07:00): Net 1,330 Intake 1,520 Output 190 -EXAM- GENERAL: Well developed, well nourished, in no a pparent distress. HEAD: Normocephalic, atraumatic. EYES: PERRL, EOM intact, conjunctiva and sclera clear, without nystagmus, lids normal. EARS: grossly normal hearing. NOSE: No deformity, no discharge, no inflammatio n, no lesions. MOUTH: Oropharynx without deformities or lesions , normal mucosa.. LUNGS: Clear bilaterally with normal respiratory effort. HEART: Regular rate and rhythm, normal S1, S2, n o murmurs, no rubs, no gallops, no clicks. ABDOMEN: Soft, non-tender, no organomegaly, no m asses noted. MUSCULOSKELETAL: No deformity, no scoliosis note d of thoracic or lumbar spine, joint ROM grossly normal. TLSO Brace in place EXTREMITIES: No clubbing, no cyanosis, no edema. PULSES: Pulses normal in all extremities. SKIN: Lower back incision intact with Steri-Strips PSYCHIATRIC: Alert and oriented to time, person, place. Normal mood and affect, intact judgment and insight, anxious -- DATA -- MEDICATIONS SENNA/DOCUSATE SODIUM 2 TAB PO 2100 PREGABALIN 100 MG PO TID methocarbamoL 750 MG PO TID METOPROLOL TARTRATE 25 MG PO BID traZODone HCL 50 MG PO BEDTIME PRN NORTRIPTYLINE HCL 10 MG PO BEDTIME POLYVINYL ALCOHOL 1.4% 2 DROP EACH EYE BID (PRN) MAG HYDROX/AL HYDROX/SIMETH 30 ML PO Q4H PRN MELATONIN 3 MG PO BEDTIME PRN ALPRAZolam 0.25 MG PO TID PRN polyethylene glycoL 3350 1 PKT PO DAILY PRN HYDROcodone BITARTRATE/APAP 1 TAB PO 0800,1300 ACETAMINOPHEN 650 MG PO Q4H PRN bisacodyL 10 MG RECTAL DAILY PRN hydrALAZINE HCL 10 MG IV Q6H PRN BACLOFEN 5 MG PO BEDTIME PRN BACLOFEN 5 MG PO BEDTIME LABS CBC W/AUTO DIFF (07/07/21 06:50) WHITE BLOOD CELL 7.2 RED BLOOD CELL 2.53 L HEMOGLOBIN 10.6L L HEMATOCRIT 30.7L L MEAN CELL VOLUME 121 H MEAN CELL HGB 41.9 H MEAN CELL HGB CONCENTRATION 34.5 H RED CELL DISTRIBUTION WIDTH 12.8 PLATELET COUNT 498H H MEAN PLATELET VOLUME 10.2 NEUTROPHIL % 68.4 IMMATURE GRANULOCYTE % 0.3 LYMPHOCYTE % 21.0 MONOCYTE % 5.9 EOSINOPHIL % 3.6 BASOPHIL % 0.8 NUCLEATED RBC % 0.0 NEUTROPHIL # 4.9 LYMPHOCYTE # 1.52 MONOCYTE # 0.4 EOSINOPHIL # 0.3 BASOPHIL # 0.1 POLYCHROMASIA 1+ H MACROCYTOSIS 2+ H PLATELET MORPHOLOGY NORM HGBA1C - GLYCOSYLATED HGB (07/07/21 06:50) GLYCOSYLATED HEMOGLOBIN (HA1C) 4.9 BASIC METABOLIC PANEL (07/07/21 06:50) SODIUM 137 POTASSIUM 3.6 CHLORIDE 102 CARBON DIOXIDE 26 GLUCOSE 124H H BLOOD UREA NITROGEN 15 GLOMERULAR FILTRATION RATE >=60 max estimate CREATININE 0.96 CALCIUM 9.1 DIFFERENTIAL SCAN (07/07/21 06:50) PLATELET MORPHOLOGY NORM -- QUALITY -- -PREVENTIVE BMI SCREENING- PATIENT BMI: 25.7 Normal BMI - no follow up needed -VTE PROPHYLAXIS -GENERAL- Yes TYPE OF VTE Lovenox Signed in PatientKeeper by Mara Paiz MSN on 07/07/21 at 16:06 Cosigned by ELISA DUBOIS DO on 07/08/21 at 15:00 at 1500 Electronically Signed by DO elsa Chicas 07/08/21 at 1500 ATTENTION *EDITS and/or ADDENDA must be made in Patient [facility] for this note. * * Edits and ammendments created in backstitch are not visible * * in Patient Keeper or the legal medical record ([facility]). * RPT #: [id number] END OF REPORT 2021-07-07 [facility] REPORT #: [id number] REPORT STATUS: Signed DATE: 07/07/21 TIME: 1416 PATIENT: HERB AVENDANO UNIT #: [id number] ROOM #: N.0312 BED: 1 : 65 AGE: 55 SEX: M ATTEND: Chitra Rosas MD ADM AUTHOR: Meri Rosas MD ATTENTION *EDITS and/or ADDENDA must be made in Patient [facility] for this note. * * Edits and ammendments created in backstitch are not visible * * in Patient Keeper or the legal medical record ([facility]). * -- ASSESSMENT AND PLAN -- GENERAL ASSESSMENT: Patient seen bedside this morning, he st ates that has some drainage around the drain site in the back and also is getting more pain at that area. Patient states has some increased tingling in his feet t sammi. He denies any fevers or chills. Neck pain is improving at night. He chris es any headache. REVIEW OF SYSTEMS- GENERAL: Negative for fever, malaise, + fatigue. CARDIOVASCULAR: Negative for chest pain or palpitations. (-) extremity swelling. GASTROINTESTINAL: Negative f or nausea. No emesis. No diarrhea. No abdominal pain GENITOURINARY: Negative for gross hematuria, dys uria, frequency, urgency. (+) incontinence MUSCULOSKELETAL: Negative for joint stiffness, a rthralgias, (+) pain SKIN: No pruritus. No rash on visible areas. (+) wound NEUROLOGICAL: Negative for headache, numbness, d izziness, paresthesias, + weakness, (-) cognitive impairment PSYCHIATRIC: Negative for specific complaints. -EXAM- GENERAL: in no apparent distress, in bedside ac ir LUNGS: normal respiratory effort and Clear bilat erally in upper lobes HEART: Regular rate and rhythm ABDOMEN: soft , non-tender, no distension, hypoa ctive bowel sounds present MUSCULOSKELETAL: No deformity, panel instrument repairer strength is 5/5 EXTREMITIES: No clubbing, no cyanosis, no edema . NEUROLOGICAL: No new focal deficits on exam, imp aired coordination, decreased muscle strength in bilateral hip flexors and rig ht knee extensor at 4- out of 5, L KE is 5-/5 left ankle dorsiflexion 4/out of 5 right ankle dorsiflexion 5- out of 5, speech intact . following commands, li ght touch diminished in feet SKIN: Intact without significant rashes on visible areas with post op wound on lumbar spine, with FIDEL drain in place PSYCHIATRIC: alert and awake . normal affect. Ox 4 GENERAL ASSESSMENT: The patient is admitted for comprehensive acute rehabilitation program after Lumbar Spinal Stenosis with Radiculopathy ; now with weakness, decreased endurance, impaired mobility and ADLs as well as the functional and medical conditions listed below. The patient is admitted to inpatient rehab follo wing the declaration of a national state of emerg ency as issued by the forest fire fighter of [place] on 08/11/2019. PLAN: Admit for comprehensive acute rehabilitation pro gram. Order PT/OT . Therapy Precautions: falls, routine, safety, spinal precautions,TLSO when out of bed PT: up to 90 min/day, at least 5 days a week, until discharge. Eval and treat. Gait training (with assistive device as needed); Strength and endurance training; Bed mobility and Transfer training; RO M and stretching exercises; Joint preservation and energy conservation techn iques; Static/Dynamic balance training; Home Exercise Program (HEP). OT: up to 90 min/day, at least 5 days a week, until discharge. Eval and treat. BUE strengthening and stretc lisa; ROM exercises; ADL/IADL re-training; training for implementation of adaptive tools and devices to simplify tasks at home and work as needed, Safety with ADLs; Gross/Fine Mot or Movements. Joint preservation and energy conservation techniques; HEP #Lumbar Spinal Stenosis with Radiculopathy - acute, improving. 06/30 discussed therapy progress to date - provided assessment of patient needs to inform the therapy treatment plan. Provided reassurance and encouragement t christian functional goals. Advised pt to focus on improving independence with fun ctional activities that they show room for improvement such as transfers patient is abl e to do bed to wheelchair transfers standby assist to contact-guard using stand pivot and rolling walker. Case discussed with internal medicine, patient had a panic attack yesterday per internal medicine will monitor on telemetry for a few days. Encouraged to use pain medication in cases of pain as his blood pr essure tends to go up if he does not use it and then does therapy. 07/01 case was discussed at rehab team conference today, discharge date is planned for 07/08 with the use of RW for home whic h he already has. Case discussed with CM, nursing and therapy team. Has Lumbar drain in place, still with elevated output, discus sed with Dr. Spear (surgeon) will continue for now. Family training pending with . TLSO when oob. pain regimen will be adjusted to help with therapy. toilet transfer CGA/SBA an d eating independently. 2/ CGA transfers, amb with RW over 200ft. Drain still with output over 50cc. Pain regimen adjusted and is working better. Bio freeze to shoulders working well, neck pain is improving. nortryptaline at h s is helping for nerve pain. labs reviewed, hbg is improving. 07/03 he is amb with RW over 230ft at S. Drain out put about 230cc in24hr , communicated to Dr. Spear. Transfers are contact-guard assist. Adjusted muscle relaxant to help for neck and back pain, case discussed with internal medicine his anti anxiety medication adjusted per IM. Earnestine erating nortriptyline at bedtime and continues on Lyrica. Hemoglobin cont inues to trend up. 07/04 Case discussed with internal medicine, sanjiv medina, nursing, patient. Drain output this morning was 80 cc and yesterday 180c c. Patient to work on neck exercises and heat packs for the neck. Also will work on the neck C-spine support while in bed, will continue with the mus isabela relaxant. Ambulating with rolling walker at supervision level over 150 fee t. Will adjust muscle relaxant dose at night. 07/07 Case discussed with caren collins, nursing, patient and Dr. Spear, as well as IM. Output from the drain was 1 20 cc last night, later on today drain did come out on its own. CT of lumbar pending for today to ev aluate site. Hemoglobin is stable. Baclofen at night is working well. Madelyne nt is doing lower body dressing at independent level and shower as well . # abnormalities of gait and mobility: Cont theralejandro medina PT and OT to address and improve strength, balance, endurance, and fu nctional independence with mobility, transfers, and gait as well as decreas e potential risk of complications such as falls and skin issues. The rapist to assess and provide education for safe use of most appropriate and l east restrictive assistive device. # Hypertension. acute, Cont current meds. Assess BP. Will defer further management to hospitalist. #muscle weakness-PT and OT to eval and treat, re c use of FES to strengthen quads and hamstrings #chronic back pain #Radiculopathy # post op pain: acute, ongoing. adjust current p ain regimen. monitor for daytime sleepiness/confusion. will adjus t regimen as needed to improve therapy tolerance and allow for adequate rest. #Bowel-on bowel regimen #Neuropathic pain will continue with Lyr ica 3 times daily, Nortryptaline at hs #Urinary incontinence bladder training program w sharlene in therapy and make sure that he toilets prior to going to bed has improved incontinence at hs 06/30 #Blood loss anemia postop- [facility] CBC and monitor for symptoms of dizziness, chest pain, shortness of breath or lightheadedness. #Status post laminectomy and lumbar fusion-lso w hen oob #incidental durotomy during surgery #Leukocytosis resolved # pressure ulcer prevention - Discussed pressure relief regimen with pt/caregiver. Advised pt to turn every 2 hours w sharlene in bed and relieve pressure every 15-20 minutes for at least 30 sec onds while in WC/chair. Diet: regular DVT prophylaxis: lovenox Dispo: to home Prognosis-good Consulting physician(s): Chip Spera-Orthoped ic Jazmine Armendariz-PM R Patient still benefits from inpatient rehabilita tion secondary to functional decline, back and leg pain, status post lumbar s urgery. Impairment group: Other neurologic conditions Etiologic diagnosis: Lumbar Spinal Stenosis with Radiculopathy REVIEW OF MED CONDITIONS: Date of onset: 06/18/21 Current surgery date and type: 06/20/21: Alejandro Spear nthony: Transforaminal Lumbar Interbody Fusion L4-L5, L5-S1, L4 and L5 Laminec herb, S1 partial Lami, Posterior Spinal Fusion L4-S1, Repair of inciden richard durotomy Active comorbid conditions: Hypokalemia, Inconti nence bowel and bladder, Back pain, Leukocytosis, Blood loss anemia, incidenta l durotomy Past medical and surgical hi story: Chronic Back Pain, Multiple Lumbar Surgeries Had major surgery within 100 days of admission: Yes Risk for medical/clinical complications: Anemia, Arrhythmia, Aspiration, BP fluctuation, Cardiac instability, Blood sugar fl uctuation, DVT, Constipation, Depression, Electrolyte imbalance, Hypoxia, Inci sional dehiscence, Infection, Injury d/t falls, Nutritional compromise, Pain, Renal insuff/failure, Urinary retention, Skin breakdown Pre-hospital services utilized: None Occupation/Profession: Full-time employed Education history: Return to work/school 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 Marital status: Hobbies/leisure activities: Prior living situation: Home Living with: Family Living with comment: lives with . -- SUBJECTIVE -- CHIEF COMPLAINT: back pain and leg pain/weakness -- OBJECTIVE -- VITALS (07/06 14:16 - 07/07 14:16): Temperature C: 36.4 (36.3 - 36.6) Temperature source: Oral Pulse Rate 95 (79 - 95) Respiratory rate: 18 (16 - 18) BP: 124/78 (114/64 - 138/81) I/Os (07/06 07:00 - 07/07 07:00): Net 1,330 Intake 1,520 Output 190 -- DATA -- CLINCAL NOTES REHAB: OT Eval/Daily Note (07/07/21) by Dyana Colunga SHOWER: COMPLETED UTILIZING SHOWER BENCH, LONG H ANDLED SPONGE, SHOWER HOSE AT INDEPENDENT. ...LB DRESS : INDEPENDENT UTILIZING AE PERMACULTURE DESIGNER TO THREAD BLE AND RW FOR UNILATERAL SUPPORT WHILE PULLING UP OVER HIPS. MEDICATIONS SENNA/DOCUSATE SODIUM 2 TAB PO 2100 PREGABALIN 100 MG PO TID methocarbamoL 750 MG PO TID METOPROLOL TARTRATE 25 MG PO BID traZODone HCL 50 MG PO BEDTIME PRN NORTRIPTYLINE HCL 10 MG PO BEDTIME POLYVINYL ALCOHOL 1.4% 2 DROP EACH EYE BID (PRN) MAG HYDROX/AL HYDROX/SIMETH 30 ML PO Q4H PRN MELATONIN 3 MG PO BEDTIME PRN ALPRAZolam 0.25 MG PO TID PRN polyethylene glycoL 3350 1 PKT PO DAILY PRN HYDROcodone BITARTRATE/APAP 1 TAB PO 0800,1300 ACETAMINOPHEN 650 MG PO Q4H PRN bisacodyL 10 MG RECTAL DAILY PRN hydrALAZINE HCL 10 MG IV Q6H PRN BACLOFEN 5 MG PO BEDTIME PRN BACLOFEN 5 MG PO BEDTIME LABS CBC W/AUTO DIFF (07/07/21 06:50) WHITE BLOOD CELL 7.2 RED BLOOD CELL 2.53 L HEMOGLOBIN 10.6L L HEMATOCRIT 30.7L L MEAN CELL VOLUME 121 H MEAN CELL HGB 41.9 H MEAN CELL HGB CONCENTRATION 34.5 H RED CELL DISTRIBUTION WIDTH 12.8 PLATELET COUNT 498H H MEAN PLATELET VOLUME 10.2 NEUTROPHIL % 68.4 IMMATURE GRANULOCYTE % 0.3 LYMPHOCYTE % 21.0 MONOCYTE % 5.9 EOSINOPHIL % 3.6 BASOPHIL % 0.8 NUCLEATED RBC % 0.0 NEUTROPHIL # 4.9 LYMPHOCYTE # 1.52 MONOCYTE # 0.4 EOSINOPHIL # 0.3 BASOPHIL # 0.1 POLYCHROMASIA 1+ H MACROCYTOSIS 2+ H PLATELET MORPHOLOGY NORM HGBA1C - GLYCOSYLATED HGB (07/07/21 06:50) GLYCOSYLATED HEMOGLOBIN (HA1C) 4.9 BASIC METABOLIC PANEL (07/07/21 06:50) SODIUM 137 POTASSIUM 3.6 CHLORIDE 102 CARBON DIOXIDE 26 GLUCOSE 124H H BLOOD UREA NITROGEN 15 GLOMERULAR FILTRATION RATE >=60 max estimate CREATININE 0.96 CALCIUM 9.1 DIFFERENTIAL SCAN (07/07/21 06:50) PLATELET MORPHOLOGY NORM ADDITIONAL COMMENTS: The most recent therapy notes from all therapist s have been reviewed in the chart and selected pertinent excerpts are includ ed in this note. -- ATTESTATION -- TIME SPENT ON PATIENT CARE: - Direct 15 minutes - Coordination of Care 20 minutes - > 50% of time spent on Counseling/Care Coordi nation CARE ACTIVITIES / CARE COORDINATION: - I have reviewed the history and repeated the stokes elements - I have seen and examined this patient - I have reviewed the progress in the clinical course since the last examination - I have discussed the madelyn ent's condition with other members of the care team Signed in PatientKeeper by Meri Rosas MD on 07/07/21 at 14:20 Electronically Signed by Meri Rosas MD on 0 07/07/21 at 1420 ATTENTION *EDITS and/or ADDENDA must be made in Patient Ke eper for this note. * * Edits and ammendments created in [facility] are not visible * * in Patient Keeper or the legal medical record ([facility]PF). * RPT #: [id number] END OF REPORT 2021-07-06 [facility] 10:55:00-00:00 [facility] ([facility]) Internal Med. Progress Note REPORT #: [id number] REPORT STATUS: Signed DATE: 07/06/21 TIME: 1055 PATIENT: HERB AVENDANO UNIT #: [id number] ROOM #: N.0312 BED: 1 : 65 AGE: 55 SEX: M ATTEND: Meri Rosas MD ADM AUTHOR: Mara Paiz MSN ATTENTION *EDITS and/or ADDENDA must be made in Patient Ke eper for this note. * * Edits and ammendments created in backstitch are not visible * * in Patient Keeper or the legal medical record ([facility]). * -- CO-SIGNATURE -- COMMENTS: Agree with the findings and plan as docu mented by Mara Paiz NP. Patient discussed with ROTARY SHEAR OPERATOR. Moderate complexity. Signed in PatientKeeper by ELISA DUBOIS DO on 07/08/21 at 15:08 -- ASSESSMENT AND PLAN -- GENERAL ASSESSMENT: Chronic back pain secondary to L4-S1 lumbar sten osis ->Improving - s/p transforaminal lumbar interbody fusion, L4 -S1, L4-L5 laminectomy, S1 partial laminectomy, and posterior spinal fusion , L4 to S1 on 06/20/[address] Spear - CT L spine on 06/22/21 stable per ortho - Pain control - IPR - May dc drain after 8 hours of less then 50cc output, per surgeon, d/w Rehab Incidental durotomy - s/p repair of incidental durotomy on 06/20/21 Hypertension - BP stable, continue metoprolol -We will control pain, seems to have hypertensio n 2/2 pain Hypokalemia - replace PRN Leukocytosis - Resolved; likely reactive Post-op blood loss anemia - Hgb stable - transfuse for hgb less than 7.0 Constipation - continue bowel regimen - encourage ambulation Anxiety related to physical condition ?Panic Attack on 06/29 - EKG, troponin negative - Xanax 0.25 TID PRN - reassurance given Insomnia - Trazodone 50 mg PRN DVT Proph - lovenox full code NOK: Dorie Avendano, , Dispo: Per Rehab. Anticipated DC on 07/08. -- SUBJECTIVE -- PATIENT NARRATIVE: Patient sitting up in the bedside chair. He stat es that he is feeling okay today. Discussed drain outpu t with nursing and nursing reports that the patient has still been having greater than 100 mL out ev koffi 8 hours. -- OBJECTIVE -- VITALS (07/05 14:19 - 07/06 14:19): Temperature C: 36.4 (36.3 - 37.0) Temperature source: Oral Pulse Rate 82 (82 - 91) Respiratory rate: 16 (16 - 18) BP: 118/80 (107/66 - 131/80) I/Os (07/05 07:00 - 07/06 07:00): Net -300 Output 300 -EXAM- GENERAL: Well developed, well nourished, in no a pparent distress. HEAD: Normocephalic, atraumatic. EYES: PERRL, EOM intact, conjunctiva and sclera clear, without nystagmus, lids normal. EARS: grossly normal hearing. NOSE: No deformity, no discharge, no inflammatio n, no lesions. MOUTH: Oropharynx without deformities or lesions , normal mucosa.. LUNGS: Clear bilaterally with normal respiratory effort. HEART: Regular rate and rhythm, normal S1, S2, n o murmurs, no rubs, no gallops, no clicks. ABDOMEN: Soft, non-tender, no organomegaly, no m asses noted. MUSCULOSKELETAL: No deformity, no scoliosis note d of thoracic or lumbar spine, joint ROM grossly normal. TLSO Brace in place EXTREMITIES: No clubbing, no cyanosis, no edema . PULSES: Pulses normal in all extremities. SKIN: Lower back incision intact with Steri-Stri ps and Hemovac drain in place PSYCHIATRIC: Alert and oriented to time, person, place. Normal mood and affect, intact judgment and insight, anxious -- DATA -- MEDICATIONS SENNA/DOCUSATE SODIUM 2 TAB PO 2100 PREGABALIN 100 MG PO TID traMADol HCL 50 MG PO Q4H PRN methocarbamoL 750 MG PO TID METOPROLOL TARTRATE 25 MG PO BID traZODone HCL 50 MG PO BEDTIME PRN NORTRIPTYLINE HCL 10 MG PO BEDTIME POLYVINYL ALCOHOL 1.4% 2 DROP EACH EYE BID (PRN) MAG HYDROX/AL HYDROX/SIMETH 30 ML PO Q4H PRN MELATONIN 3 MG PO BEDTIME PRN HYDROcodone BITARTRATE/APAP 1 TAB PO Q6H (PRN) ALPRAZolam 0.25 MG PO TID PRN polyethylene glycoL 3350 1 PKT PO DAILY PRN HYDROcodone BITARTRATE/APAP 1 TAB PO 0800,1300 ACETAMINOPHEN 650 MG PO Q4H PRN bisacodyL 10 MG RECTAL DAILY PRN hydrALAZINE HCL 10 MG IV Q6H PRN BACLOFEN 5 MG PO BEDTIME PRN BACLOFEN 5 MG PO BEDTIME -- QUALITY -- -PREVENTIVE BMI SCREENING- PATIENT BMI: 25.7 Normal BMI - no follow up needed -VTE PROPHYLAXIS -GENERAL- Yes TYPE OF VTE Lovenox Signed in PatientKeeper by Mara Paiz on 07/06/21 at 14:21 Cosigned by ELISA DUBOIS DO on 07/08/21 at 15:08 at 1508 Electronically Signed by DO elsa Chicas 07/08/21 at 1508 ATTENTION *EDITS and/or ADDENDA must be made in Patient [facility] for this note. * * Edits and ammendments created in MEDITECH are not visible * * in Patient Keeper or the legal medical record ([facility]). * RPT #: [id number] END OF REPORT 2021-07-05 [facility] 10:35:00-00:00 [facility] ([facility]) Internal Med. Progress Note REPORT #: [id number] REPORT STATUS: Signed DATE: 07/05/21 TIME: 1035 PATIENT: HERB AVENDANO UNIT #: [id number] ROOM #: [id number] BED: 1 : 65 AGE: 55 SEX: M ATTEND: Chitra Rosas MD ADM AUTHOR: Mara Paiz MSN ATTENTION *EDITS and/or ADDENDA must be made in Patient [facility] for this note. * * Edits and ammendments created in MEDITECH are not visible * * in Patient Keeper or the legal medical record ([facility]). * -- CO-SIGNATURE -- COMMENTS: Agree with the findings and plan as docu mented by Mara Paiz NP. Patient discussed with ROTARY SHEAR OPERATOR. Moderate complexity. Signed in PatientKeeper by ELISA DUBOIS DO on 07/06/21 at 12:59 -- ASSESSMENT AND PLAN -- GENERAL ASSESSMENT: Chronic back pain secondary to L4-S1 lumbar sten osis ->Improving - s/p transforaminal lumbar interbody fusion, L4 -S1, L4-L5 laminectomy, S1 partial laminectomy, and posterior spinal fusion , L4 to S1 on 06/20/[address] Spear - CT L spine on 06/22/21 stable per ortho - Pain control - IPR - May dc drain after 8 hours of less then 50cc output, per surgeon, d/w Rehab Incidental durotomy - s/p repair of incidental durotomy on 06/20/21 Hypertension - BP stable, continue metoprolol -We will control pain, seems to have hypertensio n 2/2 pain Hypokalemia - replace PRN Leukocytosis - Resolved; likely reactive Post-op blood loss anemia - Hgb stable in 9 range - transfuse for hgb less than 7.0 Constipation - continue bowel regimen - encourage ambulation Anxiety related to physical condition ?Panic Attack on 06/29 - EKG, troponin negative - Xanax 0.25 TID PRN - tele - reassurance given Insomnia - Trazodone 50 mg PRN DVT Proph - lovenox full code NOK: Dorie Avendano, , Dispo: Per Rehab. Anticipated DC on 07/08. -- SUBJECTIVE -- PATIENT NARRATIVE: Patient up working with physical therapy. p resent at the bedside. He states that his neck pain is much improved since yesterday. No acute issues reported overnight. -- OBJECTIVE -- VITALS (07/04 12:58 - 07/05 12:58): Temperature C: 36.4 Temperature source: Oral Pulse Rate 80 (80 - 97) Respiratory rate: 18 (18 - 19) BP: 124/81 (108/72 - 135/86) I/Os (07/04 07:00 - 07/05 07:00): Net 350 Intake 720 Output 370 -EXAM- GENERAL: Well developed, well nourished, in no a pparent distress. HEAD: Normocephalic, atraumatic. EYES: PERRL, EOM intact, conjunctiva and sclera clear, without nystagmus, lids normal. EARS: grossly normal hearing. NOSE: No deformity, no discharge, no inflammatio n, no lesions. MOUTH: Oropharynx without deformities or lesions , normal mucosa.. LUNGS: Clear bilaterally with normal respiratory effort. HEART: Regular rate and rhythm, normal S1, S2, no murmurs, no rubs, no gallops, no clicks. ABDOMEN: Soft, non-tender, no organomegaly, no m asses noted. MUSCULOSKELETAL: No deformity, no scoliosis note d of thoracic or lumbar spine, joint ROM grossly normal. TLSO Brace in place EXTREMITIES: No clubbing, no cyanosis, no edema. PULSES: Pulses normal in all extremities. SKIN: Lower back incision intact with FIDEL drain PSYCHIATRIC: Alert and oriented to time, person, place. Normal mood and affect, intact judgment and insight, anxious -- DATA -- MEDICATIONS SENNA/DOCUSATE SODIUM 2 TAB PO 2100 PREGABALIN 100 MG PO TID traMADol HCL 50 MG PO Q4H PRN methocarbamoL 750 MG PO TID METOPROLOL TARTRATE 25 MG PO BID traZODone HCL 50 MG PO BEDTIME PRN NORTRIPTYLINE HCL 10 MG PO BEDTIME POLYVINYL ALCOHOL 1.4% 2 DROP EACH EYE BID (PRN) MAG HYDROX/AL HYDROX/SIMETH 30 ML PO Q4H PRN MELATONIN 3 MG PO BEDTIME PRN HYDROcodone BITARTRATE/APAP 1 TAB PO Q6H (PRN) ALPRAZolam 0.25 MG PO TID PRN polyethylene glycoL 3350 1 PKT PO DAILY PRN HYDROcodone BITARTRATE/APAP 1 TAB PO 0800,1300 ACETAMINOPHEN 650 MG PO Q4H PRN bisacodyL 10 MG RECTAL DAILY PRN hydrALAZINE HCL 10 MG IV Q6H PRN BACLOFEN 5 MG PO BEDTIME PRN BACLOFEN 5 MG PO BEDTIME -- QUALITY -- -PREVENTIVE BMI SCREENING- PATIENT BMI: 25.7 Normal BMI - no follow up needed -VTE PROPHYLAXIS -GENERAL- Yes TYPE OF VTE Lovenox Signed in PatientKeeper by Mara Paiz on 07/05/21 at 12:59 Cosigned by ELISA DUBOIS DO on 07/06/21 at 12:59 at 1259 Electronically Signed by DO elsa Chicas 07/06/21 at 1259 ATTENTION *EDITS and/or ADDENDA must be made in Patient [facility] for this note. * * Edits and ammendments created in MEDITECH are not visible * * in Patient Keeper or the legal medical record ([facility]). * RPT #: [id number] END OF REPORT 2021-07-04 [facility] 14:31:00-00:00 [facility]. Progress Note REPORT #: [id number] REPORT STATUS: Signed DATE: 07/04/21 TIME: 1431 PATIENT: HERB AVENDANO UNIT #: [id number] ROOM #: N.0312 BED: 1 : 65 AGE: 55 SEX: M ATTEND: Chitra Rosas MD ADM AUTHOR: Meri Rosas MD ATTENTION *EDITS and/or ADDENDA must be made in Patient [facility] for this note. * * Edits and ammendments created in MEDITECH are not visible * * in Patient Keeper or the legal medical record ([facility]). * -- ASSESSMENT AND PLAN -- GENERAL ASSESSMENT: Patient seen bedside this mo rning, working with therapy on walking and balance. Still has some muscle pain around the shoulders and neck area. No radiation to his hands. REVIEW OF SYSTEMS- GENERAL: Negative for fever, malaise, + fatigue. CARDIOVASCULAR: Negative for chest pain or palpitations. (-) extremity swelling. GASTROINTESTINAL: Negative f or nausea. No emesis. No diarrhea. No abdominal pain GENITOURINARY: Negative for gross hematuria, dys uria, frequency, urgency. (+) incontinence MUSCULOSKELETAL: Negative for joint stiffness, a rthralgias, (+) pain SKIN: No pruritus. No rash on visible areas. (+) wound NEUROLOGICAL: Negative for headache, numbness, d izziness, paresthesias, + weakness, (-) cognitive impairment PSYCHIATRIC: Negative for specific complaints. -EXAM- GENERAL: in no apparent distress, in therapy LUNGS: normal respiratory effort and Clear bilat erally in upper lobes HEART: Regular rate and rhythm ABDOMEN: soft , non-tender, no distension, hypoa ctive bowel sounds present MUSCULOSKELETAL: No deformity, panel instrument repairer strength is 5/5 EXTREMITIES: No clubbing, no cyanosis, no edema . NEUROLOGICAL: No new focal deficits on exam, imp aired coordination, decreased muscle strength in bilateral hip flexors and rig ht knee extensor at 4- out of 5, L KE is 5-/5 left ankle dorsiflexion 4/out of 5 right ankle dorsiflexion 5- out of 5, speech intact . following commands, li ght touch diminished in feet SKIN: Intact without significant rashes on visible areas with post op wound on lumbar spine, with FIDEL drain in place PSYCHIATRIC: alert and awake . normal affect. Ox 4 GENERAL ASSESSMENT: The patient is admitted for comprehensive acute rehabilitation program after Lumbar Spinal Stenosis with Radiculopathy ; now with weakness, decreased endurance, impaired mobility and ADLs as well as the functional and medical conditions listed below. The patient is admitted to inpatient rehab follo wing the declaration of a national state of emerg ency as issued by the forest fire fighter of [place] on 08/11/2019. PLAN: Admit for comprehensive acute rehabilitation pro gram. Order PT/OT . Therapy Precautions: falls, routine, safety, spinal precautions,TLSO when out of bed PT: up to 90 min/day, at least 5 days a week, until discharge. Eval and treat. Gait training (with assistive device as needed); Strength and endurance training; Bed mobility and Transfer training; RO M and stretching exercises; Joint preservation and energy conservation techn iques; Static/Dynamic balance training; Home Exercise Program (HEP). OT: up to 90 min/day, at least 5 days a week, until discharge. Eval and treat. BUE strengthening and stretc lisa; ROM exercises; ADL/IADL re-training; training for implementation of adaptive tools and devices to simplify tasks at home and work as needed, Safety with ADLs; Gross/Fine Mot or Movements. Joint preservation and energy conservation techniques; HEP #Lumbar Spinal Stenosis with Radiculopathy - acute, improving. 06/30 discussed therapy progress to date - provided assessment of patient needs to inform the therapy treatment plan. Provided reassurance and encouragement t christian functional goals. Advised pt to focus on improving independence with fun ctional activities that they show room for improvement such as transfers patient is abl e to do bed to wheelchair transfers standby assist to contact-guard using stand pivot and rolling walker. Case discussed with internal medicine, patient had a panic attack yesterday per internal medicine will monitor on telemetry for a few days. Encouraged to use pain medication in cases of pain as his blood pr essure tends to go up if he does not use it and then does therapy. 07/01 case was discussed at rehab team conference today, discharge date is planned for 07/08 with the use of RW for home whic h he already has. Case discussed with CM, nursing and therapy team. Has Lumbar drain in place, still with elevated output, discus sed with Dr. Spear (surgeon) will continue for now. Family training pending with . TLSO when oob. pain regimen will be adjusted to help with therapy. toilet transfer CGA/SBA an d eating independently. 2 CGA transfers, amb with RW over 200ft. Drain still with output over 50cc. Pain regimen adjusted and is working better. Bio freeze to shoulders working well, neck pain is improving. nortryptaline at h s is helping for nerve pain. labs reviewed, hbg is improving. 07/03 he is amb with RW over 230ft at S. Drain out put about 230cc in24hr , communicated to Dr. Spear. Transfers are contact-guard assist. Adjusted muscle relaxant to help for neck and back pain, case discussed with internal medicine his anti anxiety medication adjusted per IM. Earnestine erating nortriptyline at bedtime and continues on Lyrica. Hemoglobin cont inues to trend up. 07/04 Case discussed with internal medicine, sanjiv medina, nursing, patient. Drain output this morning was 80 cc and yesterday 180c c. Patient to work on neck exercises and heat packs for the neck. Also will work on the neck C-spine support while in bed, will continue with the mus isabela relaxant. Ambulating with rolling walker at supervision level over 150 fee t. Will adjust muscle relaxant dose at night. # abnormalities of gait and mobility: Cont sanjiv medina PT and OT to address and improve strength, balance, endurance, and fu nctional independence with mobility, transfers, and gait as well as decreas e potential risk of complications such as falls and skin issues. The rapist to assess and provide education for safe use of most appropriate and l east restrictive assistive device. # Hypertension. acute, Cont current meds. Assess BP. Will defer further management to hospitalist. #muscle weakness-PT and OT to eval and treat, re c use of FES to strengthen quads and hamstrings #chronic back pain #Radiculopathy # post op pain: acute, ongoing. adjust current p ain regimen. monitor for daytime sleepiness/confusion. will adjus t regimen as needed to improve therapy tolerance and allow for adequate rest. #Bowel-on bowel regimen #Neuropathic pain will continue with Lyr ica 3 times daily, Nortryptaline at hs #Urinary incontinence bladder training program w sharlene in therapy and make sure that he toilets prior to going to bed has improved incontinence at hs 06/30 #Blood loss anemia postop- will continue to gael tor with CBC and monitor for symptoms of dizziness, chest pain, shortness of breath or lightheadedness. #Status post laminectomy and lumbar fusion-lso w hen oob #incidental durotomy during surgery #Leukocytosis resolved # pressure ulcer prevention - Discussed pressure relief regimen with pt/caregiver. Advised pt to turn every 2 hours w sharlene in bed and relieve pressure every 15-20 minutes for at least 30 sec onds while in WC/chair. Diet: regular DVT prophylaxis: lovenox Dispo: to home Prognosis-good Consulting physician(s): Chip Spear-Orthoped Jazmine Arteaga-PM R Patient still benefits from inpatient rehabilita tion secondary to functional decline, back and leg pain, status post lumbar s urgery. Impairment group: Other neurologic conditions Etiologic diagnosis: Lumbar Spinal Stenosis with Radiculopathy REVIEW OF MED CONDITIONS: Date of onset: 06/18/21 Current surgery date and type: 06/20/21: Alejandro Spear nthony: Transforaminal Lumbar Interbody Fusion L4-L5, L5-S1, L4 and L5 Laminec herb, S1 partial Lami, Posterior Spinal Fusion L4-S1, Repair of inciden richard durotomy Active comorbid conditions: Hypokalemia, Inconti nence bowel and bladder, Back pain, Leukocytosis, Blood loss anemia, incidenta l durotomy Past medical and surgical hi story: Chronic Back Pain, Multiple Lumbar Surgeries Had major surgery within 100 days of admission: Yes Risk for medical/clinical complications: Anemia, Arrhythmia, Aspiration, BP fluctuation, Cardiac instability, Blood sugar fl uctuation, DVT, Constipation, Depression, Electrolyte imbalance, Hypoxia, Inci sional dehiscence, Infection, Injury d/t falls, Nutritional compromise, Pain, Renal insuff/failure, Urinary retention, Skin breakdown Pre-hospital services utilized: None Occupation/Profession: Full-time employed Education history: Return to work/school 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 Marital status: Hobbies/leisure activities: Prior living situation: Home Living with: Family Living with comment: lives with . -- SUBJECTIVE -- CHIEF COMPLAINT: back pain and leg pain/weakness -- OBJECTIVE -- VITALS (07/03 14:31 - 07/04 14:31): Temperature C: 36.4 (36.2 - 36.4) Temperature source: Oral Pulse Rate 97 (80 - 97) Respiratory rate: 18 (17 - 18) BP: 146/91 (120/75 - 146/96) I/Os (07/03 07:00 - 07/04 07:00): Net 90 Intake 360 Output 270 -- DATA -- CLINCAL NOTES REHAB: OT Eval/Daily Note (07/04/21) by Dyana Colunga FUNCTIONAL MOBILITY <> ROOM AND GYM USING RW AT [facility] ONLY DUE TO BALANCE. MEDICATIONS SENNA/DOCUSATE SODIUM 2 TAB PO 2100 PREGABALIN 100 MG PO TID traMADol HCL 50 MG PO Q4H PRN methocarbamoL 750 MG PO TID METOPROLOL TARTRATE 25 MG PO BID traZODone HCL 50 MG PO BEDTIME PRN NORTRIPTYLINE HCL 10 MG PO BEDTIME POLYVINYL ALCOHOL 1.4% 2 DROP EACH EYE BID (PRN) MAG HYDROX/AL HYDROX/SIMETH 30 ML PO Q4H PRN MELATONIN 3 MG PO BEDTIME PRN HYDROcodone BITARTRATE/APAP 1 TAB PO Q6H (PRN) ALPRAZolam 0.25 MG PO TID PRN polyethylene glycoL 3350 1 PKT PO DAILY PRN HYDROcodone BITARTRATE/APAP 1 TAB PO 0800,1300 ACETAMINOPHEN 650 MG PO Q4H PRN bisacodyL 10 MG RECTAL DAILY PRN hydrALAZINE HCL 10 MG IV Q6H PRN BACLOFEN 5 MG PO BEDTIME PRN LABS CBC W/AUTO DIFF (07/02/21 09:40) WHITE BLOOD CELL 7.2 RED BLOOD CELL 2.68 L HEMOGLOBIN 11.4D L D L HEMATOCRIT 32.6L L MEAN CELL VOLUME 122 H MEAN CELL HGB 42.5 H MEAN CELL HGB CONCENTRATION 35.0 H RED CELL DISTRIBUTION WIDTH 13.3 PLATELET COUNT 579H H MEAN PLATELET VOLUME 9.9 NEUTROPHIL % 64.7 IMMATURE GRANULOCYTE % 0.7 LYMPHOCYTE % 27.7 MONOCYTE % 4.0 EOSINOPHIL % 1.9 BASOPHIL % 1.0 NUCLEATED RBC % 0.0 NEUTROPHIL # 4.7 LYMPHOCYTE # 2.00 MONOCYTE # 0.3 EOSINOPHIL # 0.1 BASOPHIL # 0.1 MACROCYTOSIS 2+ H PLATELET MORPHOLOGY NORM BASIC METABOLIC PANEL (07/02/21 09:40) SODIUM 138 POTASSIUM 3.8 CHLORIDE 102 CARBON DIOXIDE 25 GLUCOSE 139H H BLOOD UREA NITROGEN 15 GLOMERULAR FILTRATION RATE >=60 max estimate CREATININE 0.94 CALCIUM 9.3 ADDITIONAL COMMENTS: The most recent therapy notes from all therapist s have been reviewed in the chart and selected pertinent excerpts are includ ed in this note. -- ATTESTATION -- TIME SPENT ON PATIENT CARE: - Direct 15 minutes - Coordination of Care 20 minutes - > 50% of time spent on Counseling/Care Coordi nation CARE ACTIVITIES / CARE COORDINATION: - I have reviewed the history and repeated the stokes elements - I have seen and examined this patient - I have reviewed the progress in the clinical course since the last examination - I have discussed the madelyn ent's condition with other members of the care team Signed in PatientKeeper by Meri Rosas MD on 07/04/21 at 14:36 Electronically Signed by Meri Rosas MD on 0 07/04/21 at 1436 ATTENTION *EDITS and/or ADDENDA must be made in Patient [facility] for this note. * * Edits and ammendments created in backstitch are not visible * * in Patient Keeper or the legal medical record ([facility]). * RPT #: [id number] END OF REPORT 2021-07-04 [facility] 11:30:00-00:00 [facility] ([facility]) Internal Med. Progress Note REPORT #: [id number] REPORT STATUS: Signed DATE: 07/04/21 TIME: 1130 PATIENT: HERB AVENDANO UNIT #: [id number] ROOM #: N.0312 BED: 1 : 65 AGE: 55 SEX: M ATTEND: Chitra Rosas MD ADM AUTHOR: Mara Paiz MSN ATTENTION *EDITS and/or ADDENDA must be made in Patient [facility] for this note. * * Edits and ammendments created in backstitch are not visible * * in Patient Keeper or the legal medical record ([facility]). * -- CO-SIGNATURE -- COMMENTS: Case discussed with ROTARY SHEAR OPERATOR. Agree with the findings and plan as documented. Moderate complexity. Signed in PatientKeeper by SIMON VORA DO on 0 07/05/21 at 17:45 -- ASSESSMENT AND PLAN -- GENERAL ASSESSMENT: Chronic back pain secondary to L4-S1 lumbar sten osis ->Improving - s/p transforaminal lumbar interbody fusion, L4 -S1, L4-L5 laminectomy, S1 partial laminectomy, and posterior spinal fusion , L4 to S1 on 06/20/[address] Spear - CT L spine on 06/22/21 stable per ortho - Pain control - IPR - May dc drain after 8 hours of less then 50cc output, per surgeon, d/w Rehab Incidental durotomy - s/p repair of incidental durotomy on 06/20/21 Hypertension - BP stable, continue metoprolol -We will control pain, seems to have hypertensio n 2/2 pain Hypokalemia - replace PRN Leukocytosis - Resolved; likely reactive Post-op blood loss anemia - Hgb stable in 9 range - transfuse for hgb less than 7.0 Constipation - continue bowel regimen - encourage ambulation Anxiety related to physical condition ?Panic Attack on 06/29 - EKG, troponin negative - Xanax 0.25 TID PRN - tele - reassurance given Insomnia - Trazodone 50 mg PRN DVT Proph - lovenox full code NOK: Dorie Avendano, , Dispo: Per Rehab. Anticipated DC on 07/08. -- SUBJECTIVE -- PATIENT NARRATIVE: Patient seen and examined. He is current ly sitting up in the bedside chair. He complains of neck pain which has improved with t opical rub and heat. Neck XR with no acute findings, patient updated on ts. -- OBJECTIVE -- VITALS (07/03 16:15 - 07/04 16:15): Temperature C: 36.4 (36.2 - 36.4) Temperature source: Oral Pulse Rate 97 (80 - 97) Respiratory rate: 18 (17 - 18) BP: 146/91 (120/75 - 146/96) I/Os (07/03 07:00 - 07/04 07:00): Net 90 Intake 360 Output 270 -EXAM- GENERAL: Well developed, well nourished, in no a pparent distress. HEAD: Normocephalic, atraumatic. EYES: PERRL, EOM intact, conjunctiva and sclera clear, without nystagmus, lids normal. EARS: grossly normal hearing. NOSE: No deformity, no discharge, no inflammatio n, no lesions. MOUTH: Oropharynx without deformities or lesions , normal mucosa.. LUNGS: Clear bilaterally with normal respiratory effort. HEART: Regular rate and rhythm, normal S1, S2, n o murmurs, no rubs, no gallops, no clicks. ABDOMEN: Soft, non-tender, no organomegaly, no m asses noted. MUSCULOSKELETAL: No deformity, no scoliosis note d of thoracic or lumbar spine, joint ROM grossly normal. TLSO Brace in place EXTREMITIES: No clubbing, no cyanosis, no edema. PULSES: Pulses normal in all extremities. SKIN: Lower back incision intact with FIDEL drain PSYCHIATRIC: Alert and oriented to time, person, place. Normal mood and affect, intact judgment and insight, anxious -- DATA -- MEDICATIONS SENNA/DOCUSATE SODIUM 2 TAB PO 2100 PREGABALIN 100 MG PO TID traMADol HCL 50 MG PO Q4H PRN methocarbamoL 750 MG PO TID METOPROLOL TARTRATE 25 MG PO BID traZODone HCL 50 MG PO BEDTIME PRN NORTRIPTYLINE HCL 10 MG PO BEDTIME POLYVINYL ALCOHOL 1.4% 2 DROP EACH EYE BID (PRN) MAG HYDROX/AL HYDROX/SIMETH 30 ML PO Q4H PRN MELATONIN 3 MG PO BEDTIME PRN HYDROcodone BITARTRATE/APAP 1 TAB PO Q6H (PRN) ALPRAZolam 0.25 MG PO TID PRN polyethylene glycoL 3350 1 PKT PO DAILY PRN HYDROcodone BITARTRATE/APAP 1 TAB PO 0800,1300 ACETAMINOPHEN 650 MG PO Q4H PRN bisacodyL 10 MG RECTAL DAILY PRN hydrALAZINE HCL 10 MG IV Q6H PRN BACLOFEN 5 MG PO BEDTIME PRN BACLOFEN 5 MG PO BEDTIME -- QUALITY -- -PREVENTIVE BMI SCREENING- PATIENT BMI: 25.7 Normal BMI - no follow up needed -VTE PROPHYLAXIS -GENERAL- Yes TYPE OF VTE Lovenox Signed in PatientKeeper by Mara Paiz on 07/04/21 at 16:21 Cosigned by SIMON VORA DO on 07/05/21 at 17:4 5 at 1745 Electronically Signed by Simon Vora DO on 10/19 at 1745 ATTENTION *EDITS and/or ADDENDA must be made in Patient Ke eper for this note. * * Edits and ammendments created in [facility] are not visible * * in Patient Keeper or the legal medical record ([facility]). * RPT #: [id number] END OF REPORT 2021-07-03 [facility] 10:53:00-00:00 [facility] ([facility]) Hospitalist Progress Note REPORT #: [id number] REPORT STATUS: Signed DATE: 07/03/21 TIME: 1052 PATIENT: JUAN ALBERTOHERB GARY MARTIN UNIT #: [id number] ROOM #: N.0312 BED: 1 : 65 AGE: 55 SEX: M ATTEND: Meri Rosas MD ADM AUTHOR: Andressa Fong APRNNP ATTENTION *EDITS and/or ADDENDA must be made in Patient Ke eper for this note. * * Edits and ammendments created in backstitch are not visible * * in Patient Keeper or the legal medical record ([facility]). * -- CO-SIGNATURE -- COMMENTS: Case discussed with ROTARY SHEAR OPERATOR. Agree with the findings and plan as documented. Moderate complexity. Signed in PatientKeeper by SIMON VORA DO on 0 07/04/21 at 14:26 -- ASSESSMENT AND PLAN -- ADDITIONAL COMMENTS: PLAN Chronic back pain secondary to L4-S1 lumbar sten osis ->Improving - Stable post-op - s/p transforaminal lumbar interbody fusion, L4 -S1, L4-L5 laminectomy, S1 partial laminectomy, and posterior spinal fusion , L4 to S1 on 06/20/21 - CT L spine on 06/22/21 stable per ortho - Pain control - Continue PT - May dc drain after 8 hours of less then 50cc output, per surgeon, d/w Rehab Incidental durotomy - s/p repair of incidental durotomy on 06/20/21 HTN - BP stable, continue metoprolol -We will control pain, seems to have hypertensio n 2/2 pain Hypokalemia - Improved with repletion Leukocytosis - Resolved; likely reactive Post-op blood loss anemia - Hgb stable in 9 range Constipation - continue bowel regimen - encourage ambulation Anxiety related to physical condition ?Panic Attack on 06/29 - EKG, troponin negative - started on low dose xanax for now - will start tele for o few days. SR on tele - Patient needs reinforcement - anxiety improving Insomnia - trial of Trazodone 50 mg PRN Code status: Full DVT ppx: Lovenox Dispo: Per Rehab -- SUBJECTIVE -- PATIENT NARRATIVE: Patient is anxious today and was complaining of insomnia, clinically improving. No other medical complain. Plan d/w RN. -- OBJECTIVE -- VITALS (07/02 19:11 - 07/03 19:11): Temperature C: 36.2 (36.2 - 36.8) Temperature source: Oral Pulse Rate 97 (82 - 97) Respiratory rate: 18 (17 - 18) BP: 144/96 (113/69 - 144/96) I/Os (07/02 07:00 - 07/03 07:00): Net -425 Intake 120 Output 545 -EXAM- GENERAL: Well developed, well nourished, in no a pparent distress. HEAD: Normocephalic, atraumatic. EYES: PERRL, EOM intact, conjunctiva and sclera clear, without nystagmus, lids normal. EARS: grossly normal hearing. NOSE: No deformity, no discharge, no inflammatio n, no lesions. MOUTH: Oropharynx without deformities or lesions , normal mucosa.. LUNGS: Clear bilaterally with normal respiratory effort. HEART: Regular rate and rhythm, normal S1, S2, n o murmurs, no rubs, no gallops, no clicks. ABDOMEN: Soft, non-tender, no organomegaly, no m asses noted. MUSCULOSKELETAL: No deformity, no scoliosis note d of thoracic or lumbar spine, joint ROM grossly normal, normal gait an d station. Brace in place EXTREMITIES: No clubbing, no cyanosis, no edema. PULSES: Pulses normal in all extremities. SKIN: Lower back incision intact with FIDEL PSYCHIATRIC: Alert and oriented to time, person, place. Normal mood and affect, intact judgment and insight, anxious -- DATA -- MEDICATIONS SENNA/DOCUSATE SODIUM 2 TAB PO 2100 PREGABALIN 100 MG PO TID traMADol HCL 50 MG PO Q4H PRN methocarbamoL 750 MG PO TID METOPROLOL TARTRATE 25 MG PO BID traZODone HCL 50 MG PO BEDTIME PRN NORTRIPTYLINE HCL 10 MG PO BEDTIME POLYVINYL ALCOHOL 1.4% 2 DROP EACH EYE BID (PRN) MAG HYDROX/AL HYDROX/SIMETH 30 ML PO Q4H PRN MELATONIN 3 MG PO BEDTIME PRN HYDROcodone BITARTRATE/APAP 1 TAB PO Q6H (PRN) ALPRAZolam 0.25 MG PO TID PRN polyethylene glycoL 3350 1 PKT PO DAILY PRN HYDROcodone BITARTRATE/APAP 1 TAB PO 0800,1300 ACETAMINOPHEN 650 MG PO Q4H PRN bisacodyL 10 MG RECTAL DAILY PRN hydrALAZINE HCL 10 MG IV Q6H PRN BACLOFEN 5 MG PO BEDTIME PRN -- ATTESTATION -- CARE ACTIVITIES / CARE COORDINATION: - I have reviewed the history and repeated the stokes elements - I have seen and examined this patient - I have reviewed the progress in the clinical course since the last examination - I have discussed the madelyn ent's condition with other members of the care team Signed in PatientKeeper by Andressa Fong APRN ROTARY SHEAR OPERATOR on 07/03/21 at 19:17 Cosigned by SIMON VORA DO on 07/04/21 at 14:2 6 at 1426 Electronically Signed by Simon Vora DO on 09/19 at 1426 ATTENTION *EDITS and/or ADDENDA must be made in Patient Ke eper for this note. * * Edits and ammendments created in [facility] are not visible * * in Patient Keeper or the legal medical record (HPF). * RPT #: [id number] END OF REPORT 2021-07-03 [facility] 09:23:00-00:00 [facility] REPORT #: [id number] REPORT STATUS: Signed DATE: 07/03/21 TIME: 922 PATIENT: HERB AVENDANO JR UNIT #: [id number] ROOM #: [id number].0312 BED: 1 : 65 AGE: 55 SEX: M ATTEND: Chitra Rosas MD ADM AUTHOR: Meri Rosas MD ATTENTION *EDITS and/or ADDENDA must be made in Patient Ke eper for this note. * * Edits and ammendments created in [facility] are not visible * * in Patient Keeper or the legal medical record (HPF). * -- ASSESSMENT AND PLAN -- GENERAL ASSESSMENT: Patient seen bedside this morning, progressing w ith walking. REVIEW OF SYSTEMS- GENERAL: Negative for fever, malaise, + fatigue. CARDIOVASCULAR: Negative for chest pain or palpitations. (-) extremity swelling. GASTROINTESTINAL: Negative f or nausea. No emesis. No diarrhea. No abdominal pain GENITOURINARY: Negative for gross hematuria, dys uria, frequency, urgency. (+) incontinence MUSCULOSKELETAL: Negative for joint stiffness, a rthralgias, (+) pain SKIN: No pruritus. No rash on visible areas. (+) wound NEUROLOGICAL: Negative for headache, numbness, d izziness, paresthesias, + weakness, (-) cognitive impairment PSYCHIATRIC: Negative for specific complaints. -EXAM- GENERAL: in no apparent distress, in bed LUNGS: normal respiratory effort and Clear bilat erally in upper lobes HEART: Regular rate and rhythm ABDOMEN: soft , non-tender, no distension, hypoa ctive bowel sounds present MUSCULOSKELETAL: No deformity, panel instrument repairer strength is 5/5 EXTREMITIES: No clubbing, no cyanosis, no edema . NEUROLOGICAL: No new focal deficits on exam, imp aired coordination, decreased muscle strength in bilateral hip flexors and rig ht knee extensor at 4- out of 5, L KE is 5-/5 left ankle dorsiflexion 4/out of 5 right ankle dorsiflexion 5- out of 5, speech intact . following commands, li ght touch diminished in feet SKIN: Intact without significant rashes on visible areas with post op wound on lumbar spine, with FIDEL drain in place PSYCHIATRIC: alert and awake . normal affect. Ox 4 GENERAL ASSESSMENT: The patient is admitted for comprehensive acute rehabilitation program after Lumbar Spinal Stenosis with Radiculopathy ; now with weakness, decreased endurance, impaired mobility and ADLs as well as the functional and medical conditions listed below. The patient is admitted to inpatient rehab follo wing the declaration of a national state of emerg ency as issued by the [employer] fire [employer] of [place] on 08/11/2019. PLAN: Admit for comprehensive acute rehabilitation pro gram. Order PT/OT . Therapy Precautions: falls, routine, safety, spinal precautions,TLSO when out of bed PT: up to 90 min/day, at least 5 days a week, until discharge. Eval and treat. Gait training (with assistive device as needed); Strength and endurance training; Bed mobility and Transfer training; RO M and stretching exercises; Joint preservation and energy conservation techn iques; Static/Dynamic balance training; Home Exercise Program (HEP). OT: up to 90 min/day, at least 5 days a week, until discharge. Eval and treat. BUE strengthening and stretc lisa; ROM exercises; ADL/IADL re-training; training for implementation of adaptive tools and devices to simplify tasks at home and work as needed, Safety with ADLs; Gross/Fine Mot or Movements. Joint preservation and energy conservation techniques; HEP #Lumbar Spinal Stenosis with Radiculopathy - acute, improving. 06/30 discussed therapy progress to date - provided assessment of patient needs to inform the therapy treatment plan. Provided reassurance and encouragement t christian functional goals. Advised pt to focus on improving independence with fun ctional activities that they show room for improvement such as transfers patient is abl e to do bed to wheelchair transfers standby assist to contact-guard using stand pivot and rolling walker. Case discussed with internal medicine, patient had a panic attack yesterday per internal medicine will monitor on telemetry for a few days. Encouraged to use pain medication in cases of pain as his blood pr essure tends to go up if he does not use it and then does therapy. 07/01 case was discussed at rehab team conference today, discharge date is planned for 07/08 with the use of RW for home whic h he already has. Case discussed with CM, nursing and therapy team. Has Lumbar drain in place, still with elevated output, discus sed with Dr. Spear (surgeon) will continue for now. Family training pending with . MARY when oob. pain regimen will be adjusted to help with therapy. toilet transfer CGA/SBA an d eating independently. 07/02 CGA transfers, amb with RW over 200ft. Drain still with output over 50cc. Pain regimen adjusted and is working better. Bio freeze to shoulders working well, neck pain is improving. nortryptaline at h s is helping for nerve pain. labs reviewed, hbg is improving. 07/03 he is amb with RW over 230ft at S. Drain out put about 230cc in24hr , communicated to Dr. Spear. Transfers are contact-guard assist. Adjusted muscle relaxant to help for neck and back pain, case discussed with internal medicine his anti anxiety medication adjusted per IM. Earnestine erating nortriptyline at bedtime and continues on Lyrica. Hemoglobin cont inues to trend up. # abnormalities of gait and mobility: Cont thera py PT and OT to address and improve strength, balance, endurance, and fu nctional independence with mobility, transfers, and gait as well as decreas e potential risk of complications such as falls and skin issues. The rapist to assess and provide education for safe use of most appropriate and l east restrictive assistive device. # Hypertension. acute, Cont current meds. Assess BP. Will defer further management to hospitalist. #muscle weakness-PT and OT to eval and treat, re c use of FES to strengthen quads and hamstrings #chronic back pain #Radiculopathy # post op pain: acute, ongoing. adjust current p ain regimen. monitor for daytime sleepiness/confusion. will adjus t regimen as needed to improve therapy tolerance and allow for adequate rest. #Bowel-on bowel regimen #Neuropathic pain will continue with Lyr ica 3 times daily, Nortryptaline at hs #Urinary incontinence bladder training program w sharlene in therapy and make sure that he toilets prior to going to bed has improved incontinence at hs 06/30 #Blood loss anemia postop- [facility] CBC and monitor for symptoms of dizziness, chest pain, shortness of breath or lightheadedness. #Status post laminectomy and lumbar fusion-lso w hen oob #incidental durotomy during surgery #Leukocytosis resolved # pressure ulcer prevention - Discussed pressure relief regimen with pt/caregiver. Advised pt to turn every 2 hours w sharlene in bed and relieve pressure every 15-20 minutes for at least 30 sec onds while in WC/chair. Diet: regular DVT prophylaxis: lovenox Dispo: to home Prognosis-good Consulting physician(s): Chip Spear-Orthoped Jazmine Arteaga-PM R Patient still benefits from inpatient rehabilita tion secondary to functional decline, back and leg pain, status post lumbar s urgery. Impairment group: Other neurologic conditions Etiologic diagnosis: Lumbar Spinal Stenosis with Radiculopathy REVIEW OF MED CONDITIONS: Date of onset: 06/18/21 Current surgery date and type: 06/20/21: Alejandro Spear nthony: Transforaminal Lumbar Interbody Fusion L4-L5, L5-S1, L4 and L5 Laminec herb, S1 partial Lami, Posterior Spinal Fusion L4-S1, Repair of inciden richard durotomy Active comorbid conditions: Hypokalemia, Inconti nence bowel and bladder, Back pain, Leukocytosis, Blood loss anemia, incidenta l durotomy Past medical and surgical hi story: Chronic Back Pain, Multiple Lumbar Surgeries Had major surgery within 100 days of admission: Yes Risk for medical/clinical complications: Anemia, Arrhythmia, Aspiration, BP fluctuation, Cardiac instability, Blood sugar fl uctuation, DVT, Constipation, Depression, Electrolyte imbalance, Hypoxia, Inci sional dehiscence, Infection, Injury d/t falls, Nutritional compromise, Pain, Renal insuff/failure, Urinary retention, Skin breakdown Pre-hospital services utilized: None Occupation/Profession: Full-time employed Education history: Return to work/school 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 Marital status: Hobbies/leisure activities: Prior living situation: Home Living with: Family Living with comment: lives with . -- SUBJECTIVE -- CHIEF COMPLAINT: back pain and leg pain/weakness -- OBJECTIVE -- VITALS (07/02 09:23 - 07/03 09:23): Temperature C: 36.6 (36.4 - 36.8) Temperature source: Oral Pulse Rate 85 (82 - 96) Respiratory rate: 18 (17 - 18) BP: 125/79 (113/69 - 135/80) I/Os (07/02 07:00 - 07/03 07:00): Net -425 Intake 120 Output 545 -- DATA -- CLINCAL NOTES REHAB: PT Eval/Daily Note (07/02/21) by Jl Parks Transfers: SUPERVISION Mobility: Walk Stairs Gait distance: 300 FEET MEDICATIONS SENNA/DOCUSATE SODIUM 2 TAB PO 2100 PREGABALIN 100 MG PO TID traMADol HCL 50 MG PO Q4H PRN METOPROLOL TARTRATE 25 MG PO BID NORTRIPTYLINE HCL 10 MG PO BEDTIME methocarbamoL 500 MG PO TID POLYVINYL ALCOHOL 1.4% 2 DROP EACH EYE BID (PRN) MAG HYDROX/AL HYDROX/SIMETH 30 ML PO Q4H PRN MELATONIN 3 MG PO BEDTIME PRN HYDROcodone BITARTRATE/APAP 1 TAB PO Q6H (PRN) polyethylene glycoL 3350 1 PKT PO DAILY PRN ACETAMINOPHEN 1000 MG PO ONCALL HYDROcodone BITARTRATE/APAP 1 TAB PO 0800,1300 ACETAMINOPHEN 650 MG PO Q4H PRN bisacodyL 10 MG RECTAL DAILY PRN hydrALAZINE HCL 10 MG IV Q6H PRN BACLOFEN 5 MG PO BEDTIME PRN LABS DIFFERENTIAL SCAN (07/02/21 09:40) PLATELET MORPHOLOGY NORM CBC W/AUTO DIFF (07/02/21 09:40) WHITE BLOOD CELL 7.2 RED BLOOD CELL 2.68 L HEMOGLOBIN 11.4D L D L HEMATOCRIT 32.6L L MEAN CELL VOLUME 122 H MEAN CELL HGB 42.5 H MEAN CELL HGB CONCENTRATION 35.0 H RED CELL DISTRIBUTION WIDTH 13.3 PLATELET COUNT 579H H MEAN PLATELET VOLUME 9.9 NEUTROPHIL % 64.7 IMMATURE GRANULOCYTE % 0.7 LYMPHOCYTE % 27.7 MONOCYTE % 4.0 EOSINOPHIL % 1.9 BASOPHIL % 1.0 NUCLEATED RBC % 0.0 NEUTROPHIL # 4.7 LYMPHOCYTE # 2.00 MONOCYTE # 0.3 EOSINOPHIL # 0.1 BASOPHIL # 0.1 MACROCYTOSIS 2+ H PLATELET MORPHOLOGY NORM BASIC METABOLIC PANEL (07/02/21 09:40) SODIUM 138 POTASSIUM 3.8 CHLORIDE 102 CARBON DIOXIDE 25 GLUCOSE 139H H BLOOD UREA NITROGEN 15 GLOMERULAR FILTRATION RATE >=60 max estimate CREATININE 0.94 CALCIUM 9.3 ADDITIONAL COMMENTS: The most recent therapy notes from all therapist s have been reviewed in the chart and selected pertinent excerpts are includ ed in this note. -- ATTESTATION -- TIME SPENT ON PATIENT CARE: - Direct 20 minutes - Coordination of Care 15 minutes - > 50% of time spent on Counseling/Care Coordi nation CARE ACTIVITIES / CARE COORDINATION: - I have reviewed the history and repeated the stokes elements - I have seen and examined this patient - I have reviewed the progress in the clinical course since the last examination - I have discussed the madelyn ent's condition with other members of the care team Signed in PatientKeeper by Meri Rosas MD on 07/03/21 at 14:51 ATTENTION *EDITS and/or ADDENDA must be made in Patient Ke eper for this note. * * Edits and ammendments created in backstitch are not visible * * in Patient Keeper or the legal medical record (HPF). * RPT #: [id number] END OF REPORT [facility]07[facility]02 [facility] ([facility] Re[facility]. Progress Note REPORT #: [id number] REPORT STATUS: Signed DATE: 07/02/21 TIME: 1333 PATIENT: HERB AVENDANO GARY MARTIN UNIT #: [id number] ROOM #: N.0312 BED: 1 : 65 AGE: 55 SEX: M ATTEND: Chitra Rosas MD ADM AUTHOR: Meri Rosas MD ATTENTION *EDITS and/or ADDENDA must be made in Patient Ke eper for this note. * * Edits and ammendments created in backstitch are not visible * * in Patient Keeper or the legal medical record (HPF). * -- ASSESSMENT AND PLAN -- GENERAL ASSESSMENT: Patient seen bedside this morning, he still has a drain in lumbar region in place. neck pain helped by joseph in therapy REVIEW OF SYSTEMS- GENERAL: Negative for fever, malaise, + fatigue. CARDIOVASCULAR: Negative for chest pain or palpitations. (-) extremity swelling. GASTROINTESTINAL: Negative f or nausea. No emesis. No diarrhea. No abdominal pain GENITOURINARY: Negative for gross hematuria, dys uria, frequency, urgency. (+) incontinence MUSCULOSKELETAL: Negative for joint stiffness, a rthralgias, (+) pain SKIN: No pruritus. No rash on visible areas. (+) wound NEUROLOGICAL: Negative for headache, numbness, d izziness, paresthesias, + weakness, (-) cognitive impairment PSYCHIATRIC: Negative for specific complaints. -EXAM- GENERAL: in no apparent distress, in bed LUNGS: normal respiratory effort and Clear bilat erally in upper lobes HEART: Regular rate and rhythm ABDOMEN: soft , non-tender, no distension, hypoa ctive bowel sounds present MUSCULOSKELETAL: No deformity, panel instrument repairer strength is 5/5 EXTREMITIES: No clubbing, no cyanosis, no edema . NEUROLOGICAL: No new focal deficits on exam, imp aired coordination, decreased muscle strength in bilateral hip flexors and rig ht knee extensor at 4- out of 5, L KE is 5-/5 left ankle dorsiflexion 4/out of 5 right ankle dorsiflexion 5- out of 5, speech intact . following commands, li ght touch diminished in feet SKIN: Intact without significant rashes on visible areas with post op wound on lumbar spine, with FIDEL drain in place PSYCHIATRIC: alert and awake . normal affect. Ox 4 GENERAL ASSESSMENT: The patient is admitted for comprehensive acute rehabilitation program after Lumbar Spinal Stenosis with Radiculopathy ; now with weakness, decreased endurance, impaired mobility and ADLs as well as the functional and medical conditions listed below. The patient is admitted to inpatient rehab follo wing the declaration of a national state of emerg ency as issued by the [employer] [place] on 08/11/2019. PLAN: Admit for comprehensive acute rehabilitation pro gram. Order PT/OT . Therapy Precautions: falls, routine, safety, spinal precautions,TLSO when out of bed PT: up to 90 min/day, at least 5 days a week, until discharge. Eval and treat. Gait training (with assistive device as needed); Strength and endurance training; Bed mobility and Transfer training; RO M and stretching exercises; Joint preservation and energy conservation techn iques; Static/Dynamic balance training; Home Exercise Program (HEP). OT: up to 90 min/day, at least 5 days a week, until discharge. Eval and treat. BUE strengthening and stretc lisa; ROM exercises; ADL/IADL re-training; training for implementation of adaptive tools and devices to simplify tasks at home and work as needed, Safety with ADLs; Gross/Fine Mot or Movements. Joint preservation and energy conservation techniques; HEP #Lumbar Spinal Stenosis with Radiculopathy - acute, improving. 06/30 discussed therapy progress to date - provided assessment of patient needs to inform the therapy treatment plan. Provided reassurance and encouragement t christian functional goals. Advised pt to focus on improving independence with fun ctional activities that they show room for improvement such as transfers patient is abl e to do bed to wheelchair transfers standby assist to contact-guard using stand pivot and rolling walker. Case discussed with internal medicine, patient had a panic attack yesterday per internal medicine will monitor on telemetry for a few days. Encouraged to use pain medication in cases of pain as his blood pr essure tends to go up if he does not use it and then does therapy. 07/01 case was discussed at rehab team conference today, discharge date is planned for 07/08 with the use of RW for home whic h he already has. Case discussed with CM, nursing and therapy team. Has Lumbar drain in place, still with elevated output, discus sed with Dr. Spear (surgeon) will continue for now. Family training pending with . TLSO when oob. pain regimen will be adjusted to help with therapy. toilet transfer CGA/SBA an d eating independently. 2 CGA transfers, amb with RW over 200ft. Drain still with output over 50cc. Pain regimen adjusted and is working better. Bio freeze to shoulders working well, neck pain is improving. nortryptaline at h s is helping for nerve pain. labs reviewed, hbg is improving. # abnormalities of gait and mobility: Cont thera py PT and OT to address and improve strength, balance, endurance, and fu nctional independence with mobility, transfers, and gait as well as decreas e potential risk of complications such as falls and skin issues. The rapist to assess and provide education for safe use of most appropriate and l east restrictive assistive device. # Hypertension. acute, Cont current meds. Assess BP. Will defer further management to hospitalist. #muscle weakness-PT and OT to eval and treat, re c use of FES to strengthen quads and hamstrings #chronic back pain #Radiculopathy # post op pain: acute, ongoing. adjust current p ain regimen. monitor for daytime sleepiness/confusion. will adjus t regimen as needed to improve therapy tolerance and allow for adequate rest. #Bowel-on bowel regimen #Neuropathic pain will continue with Lyr ica 3 times daily, Nortryptaline at hs #Urinary incontinence bladder training program w sharlene in therapy and make sure that he toilets prior to going to bed has improved incontinence at hs 06/30 #Blood loss anemia postop- will continue to gael tor with CBC and monitor for symptoms of dizziness, chest pain, shortness of breath or lightheadedness. #Status post laminectomy and lumbar fusion-lso w hen oob #incidental durotomy during surgery #Leukocytosis resolved # pressure ulcer prevention - Discussed pressure relief regimen with pt/caregiver. Advised pt to turn every 2 hours w sharlene in bed and relieve pressure every 15-20 minutes for at least 30 sec onds while in WC/chair. Diet: regular DVT prophylaxis: lovenox Dispo: to home Prognosis-good Consulting physician(s): Chip Spear-Orthoped Jazmine Arteaga-PM R Patient still benefits from inpatient rehabilita tion secondary to functional decline, back and leg pain, status post lumbar s urgery. Impairment group: Other neurologic conditions Etiologic diagnosis: Lumbar Spinal Stenosis with Radiculopathy REVIEW OF MED CONDITIONS: Date of onset: 06/18/21 Current surgery date and type: 06/20/21: Alejandro Spear nthony: Transforaminal Lumbar Interbody Fusion L4-L5, L5-S1, L4 and L5 Laminec herb, S1 partial Lami, Posterior Spinal Fusion L4-S1, Repair of inciden richard durotomy Active comorbid conditions: Hypokalemia, Inconti nence bowel and bladder, Back pain, Leukocytosis, Blood loss anemia, incidenta l durotomy Past medical and surgical hi story: Chronic Back Pain, Multiple Lumbar Surgeries Had major surgery within 100 days of admission: Yes Risk for medical/clinical complications: Anemia, Arrhythmia, Aspiration, BP fluctuation, Cardiac instability, Blood sugar fl uctuation, DVT, Constipation, Depression, Electrolyte imbalance, Hypoxia, Inci sional dehiscence, Infection, Injury d/t falls, Nutritional compromise, Pain, Renal insuff/failure, Urinary retention, Skin breakdown Pre-hospital services utilized: None Occupation/Profession: Full-time employed Education history: Return to work/school 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 Marital status: Hobbies/leisure activities: Prior living situation: Home Living with: Family Living with comment: lives with . -- SUBJECTIVE -- CHIEF COMPLAINT: back pain and leg pain/weakness -- OBJECTIVE -- VITALS (07/01 13:34 - 07/02 13:34): Temperature C: 36.5 (36.5 - 36.7) Temperature source: Oral Pulse Rate 84 (81 - 87) Respiratory rate: 18 BP: 119/76 (119/75 - 145/82) I/Os (07/01 07:00 - 07/02 07:00): Net -50 Output 50 -- DATA -- MEDICATIONS SENNA/DOCUSATE SODIUM 2 TAB PO 2100 PREGABALIN 100 MG PO TID traMADol HCL 50 MG PO Q4H PRN METOPROLOL TARTRATE 25 MG PO BID NORTRIPTYLINE HCL 10 MG PO BEDTIME methocarbamoL 500 MG PO TID POLYVINYL ALCOHOL 1.4% 2 DROP EACH EYE BID (PRN) MAG HYDROX/AL HYDROX/SIMETH 30 ML PO Q4H PRN MELATONIN 3 MG PO BEDTIME PRN HYDROcodone BITARTRATE/APAP 1 TAB PO Q6H (PRN) polyethylene glycoL 3350 1 PKT PO DAILY PRN ACETAMINOPHEN 1000 MG PO ONCALL HYDROcodone BITARTRATE/APAP 1 TAB PO 0800,1300 ACETAMINOPHEN 650 MG PO Q4H PRN bisacodyL 10 MG RECTAL DAILY PRN hydrALAZINE HCL 10 MG IV Q6H PRN BACLOFEN 5 MG PO BEDTIME PRN LABS DIFFERENTIAL SCAN (07/02/21 09:40) PLATELET MORPHOLOGY NORM CBC W/AUTO DIFF (07/02/21 09:40) WHITE BLOOD CELL 7.2 RED BLOOD CELL 2.68 L HEMOGLOBIN 11.4D L D L HEMATOCRIT 32.6L L MEAN CELL VOLUME 122 H MEAN CELL HGB 42.5 H MEAN CELL HGB CONCENTRATION 35.0 H RED CELL DISTRIBUTION WIDTH 13.3 PLATELET COUNT 579H H MEAN PLATELET VOLUME 9.9 NEUTROPHIL % 64.7 IMMATURE GRANULOCYTE % 0.7 LYMPHOCYTE % 27.7 MONOCYTE % 4.0 EOSINOPHIL % 1.9 BASOPHIL % 1.0 NUCLEATED RBC % 0.0 NEUTROPHIL # 4.7 LYMPHOCYTE # 2.00 MONOCYTE # 0.3 EOSINOPHIL # 0.1 BASOPHIL # 0.1 MACROCYTOSIS 2+ H PLATELET MORPHOLOGY NORM BASIC METABOLIC PANEL (07/02/21 09:40) SODIUM 138 POTASSIUM 3.8 CHLORIDE 102 CARBON DIOXIDE 25 GLUCOSE 139H H BLOOD UREA NITROGEN 15 GLOMERULAR FILTRATION RATE >=60 max estimate CREATININE 0.94 CALCIUM 9.3 ADDITIONAL COMMENTS: The most recent therapy notes from all therapist s have been reviewed in the chart and selected pertinent excerpts are includ ed in this note. -- ATTESTATION -- TIME SPENT ON PATIENT CARE: - Direct 20 minutes - Coordination of Care 15 minutes - > 50% of time spent on Counseling/Care Coordi nation CARE ACTIVITIES / CARE COORDINATION: - I have reviewed the history and repeated the stokes elements - I have seen and examined this patient - I have reviewed the progress in the clinical course since the last examination - I have discussed the madelyn ent's condition with other members of the care team Signed in PatientKeeper by Meri Rosas MD on 07/02/21 at 13:41 at 1341 ATTENTION *EDITS and/or ADDENDA must be made in Patient [facility] for this note. * * Edits and ammendments created in backstitch are not visible * * in Patient Keeper or the legal medical record ([facility]). * RPT #: [id number] END OF REPORT [facility]07[facility]02 [facility]00 [facility] ([facility]) Hospitalist Progress Note REPORT #: [id number] REPORT STATUS: Signed DATE: 07/02/21 TIME: 949 PATIENT: HERB AVENDANO UNIT #: [id number] ROOM #: [id number] BED: 1 : 65 AGE: 55 SEX: M ATTEND: Chitra Rosas MD ADM AUTHOR: Andressa Fong ATTENTION *EDITS and/or ADDENDA must be made in Patient [facility] for this note. * * Edits and ammendments created in backstitch are not visible * * in Patient Keeper or the legal medical record ([facility]). * -- CO-SIGNATURE -- COMMENTS: Case discussed with ROTARY SHEAR OPERATOR. Agree with the findings and plan as documented. Moderate complexity. Signed in PatientKeeper by SIMON VORA DO on 0 07/02/21 at 15:35 -- ASSESSMENT AND PLAN -- ADDITIONAL COMMENTS: PLAN Chronic back pain secondary to L4-S1 lumbar sten osis ->Improving - Stable post-op - s/p transforaminal lumbar interbody fusion, L4 -S1, L4-L5 laminectomy, S1 partial laminectomy, and posterior spinal fusion , L4 to S1 on 06/20/21 - CT L spine on 06/22/21 stable per ortho - Pain control - Continue PT - May dc drain after 8 hours of less then 50cc output, per surgeon, d/w Rehab Incidental durotomy - s/p repair of incidental durotomy on 06/20/21 HTN - BP stable, continue metoprolol -We will control pain, seems to have hypertensio n 2/2 pain Hypokalemia - Improved with repletion Leukocytosis - Resolved; likely reactive Post-op blood loss anemia - Hgb stable in 9 range Constipation - continue bowel regimen - encourage ambulation Anxiety related to physical condition ?Panic Attack on 06/29 - EKG, troponin negative - will start tele for o few days. SR on tele - Patient needs reinforcement - anxiety improving Code status: Full DVT ppx: Lovenox Dispo: Per Rehab -- SUBJECTIVE -- PATIENT NARRATIVE: Doing great, no acute medical complains. Continu e therapy, no CP or panic attacks, continue tele for one more day. -- OBJECTIVE -- VITALS (07/01 09:51 - 07/02 09:51): Temperature C: 36.5 (36.5 - 36.7) Temperature source: Oral Pulse Rate 84 (79 - 87) Respiratory rate: 18 BP: 119/76 (119/75 - 145/82) I/Os (07/01 07:00 - 07/02 07:00): Net -50 Output 50 -EXAM- GENERAL: Well developed, well nourished, in no a pparent distress. HEAD: Normocephalic, atraumatic. EYES: PERRL, EOM intact, conjunctiva and sclera clear, without nystagmus, lids normal. EARS: grossly normal hearing. NOSE: No deformity, no discharge, no inflammatio n, no lesions. MOUTH: Oropharynx without deformities or lesions , normal mucosa.. LUNGS: Clear bilaterally with normal respiratory effort. HEART: Regular rate and rhythm, normal S1, S2, n o murmurs, no rubs, no gallops, no clicks. ABDOMEN: Soft, non-tender, no organomegaly, no m asses noted. MUSCULOSKELETAL: No deformity, no scoliosis note d of thoracic or lumbar spine, joint ROM grossly normal, normal gait an d station. Brace in place EXTREMITIES: No clubbing, no cyanosis, no edema. PULSES: Pulses normal in all extremities. SKIN: Lower back incision intact with FIDEL PSYCHIATRIC: Alert and oriented to time, person, place. Normal mood and affect, intact judgment and insight, anxious -- DATA -- MEDICATIONS SENNA/DOCUSATE SODIUM 2 TAB PO 2100 PREGABALIN 100 MG PO TID traMADol HCL 50 MG PO Q4H PRN METOPROLOL TARTRATE 25 MG PO BID NORTRIPTYLINE HCL 10 MG PO BEDTIME methocarbamoL 500 MG PO TID POLYVINYL ALCOHOL 1.4% 2 DROP EACH EYE BID (PRN) MAG HYDROX/AL HYDROX/SIMETH 30 ML PO Q4H PRN MELATONIN 3 MG PO BEDTIME PRN HYDROcodone BITARTRATE/APAP 1 TAB PO Q6H (PRN) polyethylene glycoL 3350 1 PKT PO DAILY PRN ACETAMINOPHEN 1000 MG PO ONCALL HYDROcodone BITARTRATE/APAP 1 TAB PO 0800,1300 ACETAMINOPHEN 650 MG PO Q4H PRN bisacodyL 10 MG RECTAL DAILY PRN hydrALAZINE HCL 10 MG IV Q6H PRN BACLOFEN 5 MG PO BEDTIME PRN -- ATTESTATION -- CARE ACTIVITIES / CARE COORDINATION: - I have reviewed the history and repeated the stokes elements - I have seen and examined this patient - I have reviewed the progress in the clinical course since the last examination - I have discussed the madelyn ent's condition with other members of the care team Signed in PatientKeeper by Andressa Fong APRN, NP on 07/02/21 at 09:53 Cosigned by SIMON VORA DO on 07/02/21 at 15:3 5 at 1535 Electronically Signed by Simon Vora DO on 07/22 at 1535 ATTENTION *EDITS and/or ADDENDA must be made in Patient Ke eper for this note. * * Edits and ammendments created in [facility] are not visible * * in Patient Keeper or the legal medical record ([facility]). * RPT #: [id number] END OF REPORT 2021-07-01 [facility] 10:58:00-00:00 [facility] ([facility]) Rehab Team Conference REPORT#:[id number] REPORT STATUS: Signed DATE:07/01/21 TIME: 1058 PATIENT: HERB AVENDANO UNIT #: [id number] ROOM: [facility] BED: 1 : 65 AGE: 55 SEX: M ATTEND: Chitra Rosas MD ADM AUTHOR: Meri Rosas MD * ALL edits or amendments must be made on the el ectronic/computer document * Rehabilitation Team Conference Weekly Team Conference Team conf information: Date of conference: 07/01/21 Conference type: Initial Conference scribe: Breonna Alejandre RN INTERDISCIPLINARY TEAM MEETING PARTICIPANTS: TITLE NAME MD NAIMA Corbett, NAIMA Jefferson, PT OT Roque Boykin, OT CM/ALEXSANDER Moss RN [facility] Staff (8) Staff (9) Staff (10) Staff (11) OTHER NAME CREDENTIALS 1 2 3 4 FUNCTIONAL CHANGE: TYPE ADMISSION TOTAL INTERIM TOTAL CHANGE Self care 20 30 10 Transfer 22 25 3 Mobility 23 26 3 Wheelchair distance: Mobility description: gait w ith RW spv up/down 6 stairs with hand rails spv ramp spv BOWEL AND BLADDER STATUS: Bowel continence admission rating: Always contin ent Bladder continence admission rating: Incont less than daily Bowel and bladder team conference update: PT IS CONTINENT OF BOWEL.PT IS INCONTINENT OF BLADDER INTERDISCIPLINARY TEAM UPDATES: JAZMIN team conference update: RATES BACK PAIN 12 OUT OF 10, MD DID AN I D TO HELP BUT PATIENT CONTINUES TO C/O PAIN, HAS A LUMBAR DRAIN MD STATES IF LESS THAN 50ML CAN DC BUT CONTINUES TO HAVE MORE THAN 50ML DRAINAGE DAILY. TELE NSR R/T PATIENT C/O CHEST PAIN, PT team conference update: Bed mobility spv + vc 's for spinal precautions for rolling and supine>sit. Sit>supine Jessica for BLEs . Gait with RW >150ft consistently, spv Up/down 6 stairs with handrails spv but pt does not have rails at home and will need to improve BLE strength an d balance to complete either with cane or 1 person assist OT team conference update: Hola carroll: Pt requires CGA-SPV for most BADLs Barriers : Pt continues to report 10/10 pain to l ower back and B LE as well as impaired sensation to B hands/feet ST team conference update: CM or SW team conference upd ate: LIVES WITH AND ON IN A SINGLE STORY HOME. Other discipline update 1: Other discipline update 2: Other discipline update 3: REHAB DC GOALS: Patient's identified discharge goal: "To be able to do things for myself again at home." Eating discharge goal: Independent (6) Shower/bathe self discharge goal: Setup/clean-u p only (5) Upper body dressing discharge goal: Independent (6) Lower body dressing discharge goal: Independent (6) Chair/bed to chair transfer discharge goal: Ind ependent (6) Transfer on/off toilet or commode discharge goa l: Supervise/touch asst (4) Walking 50 feet with two turns discharge goal: Independent (6) Walking 150 feet discharge goal: Independent (6 ) Four steps discharge goal: Independent (6) Twelve steps discharge goal: Supervise/touch as st (4) [place] 150 feet discharge goal: Not applicabl e Goal 1 - Bowel function: Continent of stool Goal 2 - Bladder function: Continent of all blad william episodes Nursing goal 3: Nursing goal 4: Nursing goal 5: DISCHARGE PLANNING: Barriers to discharge: Pain, Home setting, Endur ance, Fall risk, UNABLE TO MAINTAIN SPINAL P, PRECAUTIONS. Strategies for D/C barriers: Evaluate pain contr ol, Sched caregiver training Estimated length of stay in days: Anticipated discharge date: 07/08/21 Discharge date adjustment comment: Identified financial and/or community resource n eeds: Family/Caregiver training days: WILL SCHEDULE [place] day (DATE): 07/07/21 Expected discharge destination: Home Anticipated services upon discharge: Home health , Outpatient, Occupational therapy, Physical therapy Anticipated discharge equipm ent: Sr. Strategic Sourcing Manager, Sock aid, Shower chair, Raised toilet seat, Long handled sponge, Long handled shoe horn, Hand held shower head, Grab bars Impairment group: neurologic conditions NOTE Document ONLY ONE Impairment Group Neurologic conditions: other neuro conditions Etiologic diagnosis: Lumbar spinal stenosis w Radiculopathy Review of comorbidities: see below MD Review/Recommendations Attestation: This interdisciplinary team conference was led ning fleming and I concur with all decisions made during the team conference and re visions to the individualized overall plan of care. IRF cont stay criteria 07/01 case was discussed at re hab team conference today, discharge date is planned for 07/08 with the use of RW f or home which he already has. Case discussed with CM , nursing and therapy team. Has Lumbar d rain in place, still with high output. Family training pending with . TLSO when oob. pain regimen will be adjusted to help with therapy. toilet transfer CGA/SBA an d eating independently. Electronically Signed by Meri Rosas MD on at 1059 RPT #:[id number] END OF REPORT 2021-07-01 [facility]00 [facility] Progress Note REPORT #: [id number] REPORT STATUS: Signed DATE: 07/01/21 TIME: 105 PATIENT: HERB AVENDANO JR UNIT #: [id number] ROOM #: [id number].0312 BED: 1 : 65 AGE: 55 SEX: M ATTEND: Chitra Rosas MD ADM AUTHOR: Meri Rosas MD ATTENTION *EDITS and/or ADDENDA must be made in Patient Ke eper for this note. * * Edits and ammendments created in backstitch are not visible * * in Patient Keeper or the legal medical record ([facility]). * -- ASSESSMENT AND PLAN -- GENERAL ASSESSMENT: Patient seen bedside this morning, he still has a drain in lumbar region in place. has some shoulder pain this am. REVIEW OF SYSTEMS- GENERAL: Negative for fever, malaise, + fatigue. CARDIOVASCULAR: Negative for chest pain or palpitations. (-) extremity swelling. GASTROINTESTINAL: Negative f or nausea. No emesis. No diarrhea. No abdominal pain GENITOURINARY: Negative for gross hematuria, dys uria, frequency, urgency. (+) incontinence MUSCULOSKELETAL: Negative for joint stiffness, a rthralgias, (+) pain SKIN: No pruritus. No rash on visible areas. (+) wound NEUROLOGICAL: Negative for headache, numbness, d izziness, paresthesias, + weakness, (-) cognitive impairment PSYCHIATRIC: Negative for specific complaints. -EXAM- GENERAL: in no apparent distress, in bed LUNGS: normal respiratory effort and Clear bilat erally in upper lobes HEART: Regular rate and rhythm ABDOMEN: soft , non-tender, no distension, hypoa ctive bowel sounds present MUSCULOSKELETAL: No deformity, panel instrument repairer strength is 5/5 EXTREMITIES: No clubbing, no cyanosis, no edema . NEUROLOGICAL: No new focal deficits on exam, imp aired coordination, decreased muscle strength in bilateral hip flexors and rig ht knee extensor at 4- out of 5, L KE is 5-/5 left ankle dorsiflexion 4/out of 5 right ankle dorsiflexion 5- out of 5, speech intact . following commands, li ght touch diminished in feet SKIN: Intact without significant rashes on visible areas with post op wound on lumbar spine, with FIDEL drain in place PSYCHIATRIC: alert and awake . normal affect. Ox 4 GENERAL ASSESSMENT: The patient is admitted for comprehensive acute rehabilitation program after Lumbar Spinal Stenosis with Radiculopathy ; now with weakness, decreased endurance, impaired mobility and ADLs as well as the functional and medical conditions listed below. The patient is admitted to inpatient rehab follo wing the declaration of a national state of emerg ency as issued by the forest fire fighter of [place] on 08/11/2019. PLAN: Admit for comprehensive acute rehabilitation pro gram. Order PT/OT . Therapy Precautions: falls, routine, safety, spinal precautions,TLSO when out of bed PT: up to 90 min/day, at least 5 days a week, until discharge. Eval and treat. Gait training (with assistive device as needed); Strength and endurance training; Bed mobility and Transfer training; RO M and stretching exercises; Joint preservation and energy conservation techn iques; Static/Dynamic balance training; Home Exercise Program (HEP). OT: up to 90 min/day, at least 5 days a week, until discharge. Eval and treat. BUE strengthening and stretc lisa; ROM exercises; ADL/IADL re-training; training for implementation of adaptive tools and devices to simplify tasks at home and work as needed, Safety with ADLs; Gross/Fine Mot or Movements. Joint preservation and energy conservation techniques; HEP #Lumbar Spinal Stenosis with Radiculopathy - acute, improving. 06/30 discussed therapy progress to date - provided assessment of patient needs to inform the therapy treatment plan. Provided reassurance and encouragement t christian functional goals. Advised pt to focus on improving independence with fun ctional activities that they show room for improvement such as transfers patient is abl e to do bed to wheelchair transfers standby assist to contact-guard using stand pivot and rolling walker. Case discussed with internal medicine, patient had a panic attack yesterday per internal medicine will monitor on telemetry for a few days. Encouraged to use pain medication in cases of pain as his blood pr essure tends to go up if he does not use it and then does therapy. 07/01 case was discussed at rehab team conference today, discharge date is planned for 07/08 with the use of RW for home whic h he already has. Case discussed with CM, nursing and therapy team. Has Lumbar drain in place, still with elevated output, discus sed with Dr. Spear (surgeon) will continue for now. Family training pending with . TLSO when oob. pain regimen will be adjusted to help with therapy. toilet transfer CGA/SBA an d eating independently. # abnormalities of gait and mobility: Cont thera py PT and OT to address and improve strength, balance, endurance, and fu nctional independence with mobility, transfers, and gait as well as decreas e potential risk of complications such as falls and skin issues. The rapist to assess and provide education for safe use of most appropriate and l east restrictive assistive device. # Hypertension. acute, Cont current meds. Assess BP. Will defer further management to hospitalist. #muscle weakness-PT and OT to eval and treat, re c use of FES to strengthen quads and hamstrings #chronic back pain #Radiculopathy # post op pain: acute, ongoing. adjust current p ain regimen. monitor for daytime sleepiness/confusion. will adjus t regimen as needed to improve therapy tolerance and allow for adequate rest. #Bowel-on bowel regimen #Neuropathic pain will continue with Lyr ica 3 times daily, Nortryptaline at hs #Urinary incontinence bladder training program w sharlene in therapy and make sure that he toilets prior to going to bed has improved incontinence at hs 06/30 #Blood loss anemia postop- will continue to gael tor with CBC and monitor for symptoms of dizziness, chest pain, shortness of breath or lightheadedness. #Status post laminectomy and lumbar fusion-lso w hen oob #incidental durotomy during surgery #Leukocytosis resolved # pressure ulcer prevention - Discussed pressure relief regimen with pt/caregiver. Advised pt to turn every 2 hours w sharlene in bed and relieve pressure every 15-20 minutes for at least 30 sec onds while in WC/chair. Diet: regular DVT prophylaxis: lovenox Dispo: to home Prognosis-good Consulting physician(s): Chip Spear-Orthoped Jazmine Arteaga-PM R Patient still benefits from inpatient rehabilita tion secondary to functional decline, back and leg pain, status post lumbar s urgery. Impairment group: Other neurologic conditions Etiologic diagnosis: Lumbar Spinal Stenosis with Radiculopathy REVIEW OF MED CONDITIONS: Date of onset: 06/18/21 Current surgery date and type: 06/20/21: Alejandro Spear nthony: Transforaminal Lumbar Interbody Fusion L4-L5, L5-S1, L4 and L5 Laminec herb, S1 partial Lami, Posterior Spinal Fusion L4-S1, Repair of inciden richard durotomy Active comorbid conditions: Hypokalemia, Inconti nence bowel and bladder, Back pain, Leukocytosis, Blood loss anemia, incidenta l durotomy Past medical and surgical hi story: Chronic Back Pain, Multiple Lumbar Surgeries Had major surgery within 100 days of admission: Yes Risk for medical/clinical complications: Anemia, Arrhythmia, Aspiration, BP fluctuation, Cardiac instability, Blood sugar fl uctuation, DVT, Constipation, Depression, Electrolyte imbalance, Hypoxia, Inci sional dehiscence, Infection, Injury d/t falls, Nutritional compromise, Pain, Renal insuff/failure, Urinary retention, Skin breakdown Pre-hospital services utilized: None Occupation/Profession: Full-time employed Education history: Return to work/school 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 Marital status: Hobbies/leisure activities: Prior living situation: Home Living with: Family Living with comment: lives with . -- SUBJECTIVE -- CHIEF COMPLAINT: back pain and leg pain/weakness -- OBJECTIVE -- VITALS (06/30 10:51 - 07/01 10:51): Temperature C: 36.5 (36.5 - 36.9) Pulse Rate 87 (83 - 90) Respiratory rate: 18 (17 - 20) BP: 129/72 (108/68 - 135/81) I/Os (06/30 07:00 - 07/01 07:00): Net -190 Output 190 -- DATA -- CLINCAL NOTES REHAB: OT Eval/Daily Note (06/30/21) by Roque Hernandez Feeding- pt is independent Oral Care- Standing sinkside, pt performed with SPV d/t intermittent headaches... Toilet Tx- Using RW, severo maldonado and BSC, pt completed 3x with CGA/SBA MEDICATIONS SENNA/DOCUSATE SODIUM 2 TAB PO 2100 PREGABALIN 100 MG PO TID traMADol HCL 50 MG PO Q4H PRN METOPROLOL TARTRATE 25 MG PO BID NORTRIPTYLINE HCL 10 MG PO BEDTIME methocarbamoL 500 MG PO TID ENOXAPARIN SODIUM 40 MG SUBQ DAILY POLYVINYL ALCOHOL 1.4% 2 DROP EACH EYE BID (PRN) MAG HYDROX/AL HYDROX/SIMETH 30 ML PO Q4H PRN MELATONIN 3 MG PO BEDTIME PRN HYDROcodone BITARTRATE/APAP 1 TAB PO Q6H (PRN) BACLOFEN 5 MG PO TID PRN polyethylene glycoL 3350 1 PKT PO DAILY PRN ACETAMINOPHEN 1000 MG PO ONCALL ACETAMINOPHEN 650 MG PO Q4H PRN bisacodyL 10 MG RECTAL DAILY PRN hydrALAZINE HCL 10 MG IV Q6H PRN LABS BASIC METABOLIC PANEL (06/26/21 08:30) SODIUM 134L L POTASSIUM 3.7 CHLORIDE 99L L CARBON DIOXIDE 26 GLUCOSE 115H H BLOOD UREA NITROGEN 13 GLOMERULAR FILTRATION RATE >=60 max estimate CREATININE 1.02 CALCIUM 8.8 CBC W/AUTO DIFF (06/26/21 08:30) WHITE BLOOD CELL 7.4 RED BLOOD CELL 2.18 L HEMOGLOBIN 9.5L L HEMATOCRIT 26.8L L MEAN CELL VOLUME 123 H MEAN CELL HGB 43.6 H MEAN CELL HGB CONCENTRATION 35.4 H RED CELL DISTRIBUTION WIDTH 12.4 PLATELET COUNT 414H H MEAN PLATELET VOLUME 10.1 NEUTROPHIL % 66.9 IMMATURE GRANULOCYTE % 0.5 LYMPHOCYTE % 20.5 MONOCYTE % 7.8 EOSINOPHIL % 3.6 BASOPHIL % 0.7 NUCLEATED RBC % 0.0 NEUTROPHIL # 4.9 LYMPHOCYTE # 1.52 MONOCYTE # 0.6 EOSINOPHIL # 0.3 BASOPHIL # 0.1 POLYCHROMASIA 1+ H MACROCYTOSIS 2+ H PLATELET MORPHOLOGY Normal ADDITIONAL COMMENTS: The most recent therapy notes from all therapist s have been reviewed in the chart and selected pertinent excerpts are includ ed in this note. -- ATTESTATION -- TIME SPENT ON PATIENT CARE: - Direct 25 minutes - Coordination of Care 10 minutes - > 50% of time spent on Counseling/Care Coordi nation CARE ACTIVITIES / CARE COORDINATION: - I have reviewed the history and repeated the stokes elements - I have seen and examined this patient - I have reviewed the progress in the clinical course since the last examination - I have discussed the madelyn ent's condition with other members of the care team Signed in PatientKeeper by Meri Rosas MD on 07/01/21 at 12:54 at 1254 ATTENTION *EDITS and/or ADDENDA must be made in Patient Ke eper for this note. * * Edits and ammendments created in backstitch are not visible * * in Patient Keeper or the legal medical record ([facility]). * RPT #: [id number] END OF REPORT 2021-07-01 [facility] 09:32:00-00:00 [facility] ([facility]) Hospitalist Progress Note REPORT #: [id number] REPORT STATUS: Signed DATE: 07/01/21 TIME: 931 PATIENT: HERB AVENDANO UNIT #: [id number] ROOM #: [id number].0312 BED: 1 : 65 AGE: 55 SEX: M ATTEND: Chitra Rosas MD ADM AUTHOR: Andressa Fong ATTENTION *EDITS and/or ADDENDA must be made in Patient Ke eper for this note. * * Edits and ammendments created in backstitch are not visible * * in Patient Keeper or the legal medical record ([facility]). * -- CO-SIGNATURE -- COMMENTS: Case discussed with ROTARY SHEAR OPERATOR. Agree with the findings and plan as documented. Moderate complexity. Signed in PatientKeeper by SIMON VORA DO on 0 07/02/21 at 15:36 -- ASSESSMENT AND PLAN -- ADDITIONAL COMMENTS: PLAN Chronic back pain secondary to L4-S1 lumbar sten osis ->Improving - Stable post-op - s/p transforaminal lumbar interbody fusion, L4 -S1, L4-L5 laminectomy, S1 partial laminectomy, and posterior spinal fusion , L4 to S1 on 06/20/21 - CT L spine on 06/22/21 stable per ortho - Pain control - Continue PT - May dc drain after 8 hours of less then 50cc output, per surgeon, d/w Rehab Incidental durotomy - s/p repair of incidental durotomy on 06/20/21 HTN - BP stable, continue metoprolol -We will control pain, seems to have hypertensio n 2/2 pain Hypokalemia - Improved with repletion Leukocytosis - Resolved; likely reactive Post-op blood loss anemia - Hgb stable in 9 range Constipation - continue bowel regimen - encourage ambulation Anxiety related to physical condition ?Panic Attack on 06/29 - EKG, troponin negative - will start tele for o few days -Patient needs reinforcement - improving Code status: Full DVT ppx: Lovenox Dispo: Per Rehab -- SUBJECTIVE -- PATIENT NARRATIVE: Continue to improved, no acute events ov ernight. Continue therapy. Plan d/w RN -- OBJECTIVE -- VITALS (06/30 09:32 - 07/01 09:32): Temperature C: 36.5 (36.5 - 36.9) Pulse Rate 87 (83 - 90) Respiratory rate: 18 (17 - 20) BP: 129/72 (108/68 - 135/81) I/Os (06/30 07:00 - 07/01 07:00): Net -190 Output 190 -EXAM- GENERAL: Well developed, well nourished, in no a pparent distress. HEAD: Normocephalic, atraumatic. EYES: PERRL, EOM intact, conjunctiva and sclera clear, without nystagmus, lids normal. EARS: grossly normal hearing. NOSE: No deformity, no discharge, no inflammatio n, no lesions. MOUTH: Oropharynx without deformities or lesions , normal mucosa.. LUNGS: Clear bilaterally with normal respiratory effort. HEART: Regular rate and rhythm, normal S1, S2, n o murmurs, no rubs, no gallops, no clicks. ABDOMEN: Soft, non-tender, no organomegaly, no m asses noted. MUSCULOSKELETAL: No deformity, no scoliosis note d of thoracic or lumbar spine, joint ROM grossly normal, normal gait an d station. Brace in place EXTREMITIES: No clubbing, no cyanosis, no edema. PULSES: Pulses normal in all extremities. SKIN: Lower back incision intact with FIDEL PSYCHIATRIC: Alert and oriented to time, person, place. Normal mood and affect, intact judgment and insight, anxious -- DATA -- MEDICATIONS SENNA/DOCUSATE SODIUM 2 TAB PO 2100 PREGABALIN 100 MG PO TID traMADol HCL 50 MG PO Q4H PRN METOPROLOL TARTRATE 25 MG PO BID NORTRIPTYLINE HCL 10 MG PO BEDTIME methocarbamoL 500 MG PO TID ENOXAPARIN SODIUM 40 MG SUBQ DAILY POLYVINYL ALCOHOL 1.4% 2 DROP EACH EYE BID (PRN) MAG HYDROX/AL HYDROX/SIMETH 30 ML PO Q4H PRN MELATONIN 3 MG PO BEDTIME PRN HYDROcodone BITARTRATE/APAP 1 TAB PO Q6H (PRN) BACLOFEN 5 MG PO TID PRN polyethylene glycoL 3350 1 PKT PO DAILY PRN ACETAMINOPHEN 1000 MG PO ONCALL ACETAMINOPHEN 650 MG PO Q4H PRN bisacodyL 10 MG RECTAL DAILY PRN hydrALAZINE HCL 10 MG IV Q6H PRN -- ATTESTATION -- CARE ACTIVITIES / CARE COORDINATION: - I have reviewed the history and repeated the stokes elements - I have seen and examined this patient - I have reviewed the progress in the clinical course since the last examination - I have discussed the madelyn ent's condition with other members of the care team Signed in PatientKeeper by Andressa Fong APRN ROTARY SHEAR OPERATOR on 07/01/21 at 16:07 Cosigned by SIMON VORA DO on 07/02/21 at 15:3 6 at 1536 Electronically Signed by Simon Vora DO on 07/22 at 1536 ATTENTION *EDITS and/or ADDENDA must be made in Patient Ke eper for this note. * * Edits and ammendments created in backstitch are not visible * * in Patient Keeper or the legal medical record (HPF). * [facility] #: [id number] END OF REPORT 2021-06-30 [facility] 11:48:00-00:00 [facility] ([facility]) Hospitalist Progress Note REPORT #: [id number] REPORT STATUS: Signed DATE: 06/30/21 TIME: 1148 PATIENT: HERB AVENDANO UNIT #: [id number] ROOM #: N.0312 BED: 1 : 65 AGE: 55 SEX: M ATTEND: Chitra Rosas MD ADM AUTHOR: Andressa Fong ATTENTION *EDITS and/or ADDENDA must be made in Patient Ke eper for this note. * * Edits and ammendments created in backstitch are not visible * * in Patient Keeper or the legal medical record (HPF). * -- CO-SIGNATURE -- COMMENTS: Case discussed with ROTARY SHEAR OPERATOR. Agree with the findings and plan as documented. Moderate complexity. Signed in PatientKeeper by SIMON VORA DO on 0 06/30/21 at 16:35 -- ASSESSMENT AND PLAN -- ADDITIONAL COMMENTS: PLAN Chronic back pain secondary to L4-S1 lumbar sten osis ->Improving - Stable post-op - s/p transforaminal lumbar interbody fusion, L4 -S1, L4-L5 laminectomy, S1 partial laminectomy, and posterior spinal fusion , L4 to S1 on 06/20/21 - CT L spine on 06/22/21 stable per ortho - Pain control - Continue PT -May dc drain after 8 hours of less then 50cc ou tput, per surgeon Incidental durotomy - s/p repair of incidental durotomy on 06/20/21 HTN - BP stable, continue metoprolol -We will control pain, seems to have hypertensio n 2/2 pain Hypokalemia - Improved with repletion Leukocytosis - Resolved; likely reactive Post-op blood loss anemia - Hgb stable in 9 range Constipation - continue bowel regimen - encourage ambulation Anxiety related to physical condition ?Panic Attack on 06/29 - EKG, troponin negative - will start tele for o few days -Patient needs reinforcement - improving Code status: Full DVT ppx: Lovenox Dispo: Per Rehab -- SUBJECTIVE -- PATIENT NARRATIVE: No acute events overnight, doing well, continue PT/OT. Had panic attack episode yesterday, but doing OK today . Plan d/w RN -- OBJECTIVE -- VITALS (06/29 15:48 - 06/30 15:48): Temperature C: 36.7 (36.3 - 36.7) Temperature source: Oral Pulse Rate 84 (82 - 93) Respiratory rate: 20 (17 - 20) BP: 130/81 (115/68 - 145/86) I/Os (06/29 07:00 - 06/30 07:00): Net 300 Intake 700 Output 400 -EXAM- GENERAL: Well developed, well nourished, in no a pparent distress. HEAD: Normocephalic, atraumatic. EYES: PERRL, EOM intact, conjunctiva and sclera clear, without nystagmus, lids normal. EARS: grossly normal hearing. NOSE: No deformity, no discharge, no inflammatio n, no lesions. MOUTH: Oropharynx without deformities or lesion s, normal mucosa.. LUNGS: Clear bilaterally with normal respiratory effort. HEART: Regular rate and rhythm, normal S1, S2, n o murmurs, no rubs, no gallops, no clicks. ABDOMEN: Soft, non-tender, no organomegaly, no m asses noted. MUSCULOSKELETAL: No deformity, no scoliosis note d of thoracic or lumbar spine, joint ROM grossly normal, normal gait an d station. Brace in place EXTREMITIES: No clubbing, no cyanosis, no edema. PULSES: Pulses normal in all extremities. SKIN: Lower back incision intact with FIDEL PSYCHIATRIC: Alert and oriented to time, person, place. Normal mood and affect, intact judgment and insight, anxious -- DATA -- MEDICATIONS SENNA/DOCUSATE SODIUM 2 TAB PO 2100 PREGABALIN 100 MG PO TID traMADol HCL 50 MG PO Q4H PRN METOPROLOL TARTRATE 25 MG PO BID NORTRIPTYLINE HCL 10 MG PO BEDTIME methocarbamoL 500 MG PO TID ENOXAPARIN SODIUM 40 MG SUBQ DAILY POLYVINYL ALCOHOL 1.4% 2 DROP EACH EYE BID (PRN) MAG HYDROX/AL HYDROX/SIMETH 30 ML PO Q4H PRN MELATONIN 3 MG PO BEDTIME PRN HYDROcodone BITARTRATE/APAP 1 TAB PO Q6H (PRN) polyethylene glycoL 3350 1 PKT PO DAILY PRN ACETAMINOPHEN 1000 MG PO ONCALL ACETAMINOPHEN 650 MG PO Q4H PRN bisacodyL 10 MG RECTAL DAILY PRN hydrALAZINE HCL 10 MG IV Q6H PRN -- ATTESTATION -- CARE ACTIVITIES / CARE COORDINATION: - I have reviewed the history and repeated the stokes elements - I have seen and examined this patient - I have reviewed the progress in the clinical course since the last examination - I have discussed the madelyn ent's condition with other members of the care team Signed in PatientKeeper by Andressa Fong APRN ROTARY SHEAR OPERATOR on 06/30/21 at 15:57 Cosigned by SIMON VORA DO on 06/30/21 at 16:3 5 at 1635 Electronically Signed by Simon Vora DO on at 1635 ATTENTION *EDITS and/or ADDENDA must be made in Patient Ke eper for this note. * * Edits and ammendments created in backstitch are not visible * * in Patient Keeper or the legal medical record (HPF). * RPT #: [id number] END OF REPORT 2021-06-30 [facility] 10:42:00-00:00 [facility] ([facility] Rehab. Progress Note REPORT #: [id number] REPORT STATUS: Signed DATE: 06/30/21 TIME: 1042 PATIENT: HERB AVENDANO UNIT #: [id number] ROOM #: N.0312 BED: 1 : 65 AGE: 55 SEX: M ATTEND: Chitra Rosas MD ADM AUTHOR: Meri Rsoas MD ATTENTION *EDITS and/or ADDENDA must be made in Patient Ke eper for this note. * * Edits and ammendments created in backstitch are not visible * * in Patient Keeper or the legal medical record (HPF). * -- ASSESSMENT AND PLAN -- GENERAL ASSESSMENT: Patient seen bedside this morning, he states had a panic attack yesterday during therapy session. He a lso had an EKG done which was normal. He slept well at night and back pain is improving. REVIEW OF SYSTEMS- GENERAL: Negative for fever, malaise, + fatigue. CARDIOVASCULAR: Negative for chest pain or palpitations. (-) extremity swelling. GASTROINTESTINAL: Negative f or nausea. No emesis. No diarrhea. No abdominal pain GENITOURINARY: Negative for gross hematuria, dys uria, frequency, urgency. (+) incontinence MUSCULOSKELETAL: Negative for joint stiffness, a rthralgias, (+) pain SKIN: No pruritus. No rash on visible areas. (+) wound NEUROLOGICAL: Negative for headache, numbness, d izziness, paresthesias, + weakness, (-) cognitive impairment PSYCHIATRIC: Negative for specific complaints. -EXAM- GENERAL: in no apparent distress, sitting up in bedside chair LUNGS: normal respiratory effort and Clear bilat erally in upper lobes HEART: Regular rate and rhythm ABDOMEN: soft , non-tender, no distension, hypoa ctive bowel sounds present, TLSO on MUSCULOSKELETAL: No deformity, panel instrument repairer strength is 5/5 EXTREMITIES: No clubbing, no cyanosis, no edema . NEUROLOGICAL: No new focal deficits on exam, imp aired coordination, decreased muscle strength in bilateral hip flexors and rig ht knee extensor at 4- out of 5, L KE is 5-/5 left ankle dorsiflexion 4/out of 5 right ankle dorsiflexion 5- out of 5, speech intact . following commands, alie mccoy touch diminished in feet SKIN: Intact without significant rashes on visible areas with post op wound on lumbar spine PSYCHIATRIC: alert and awake . normal affect. Ox 4 GENERAL ASSESSMENT: The patient is admitted for comprehensive acute rehabilitation program after Lumbar Spinal Stenosis with Radiculopathy ; now with weakness, decreased endurance, impaired mobility and ADLs as well as the functional and medical conditions listed below. The patient is admitted to inpatient rehab follo wing the declaration of a national state of emerg ency as issued by the forest fire fighter of [place] on 08/11/2019. PLAN: Admit for comprehensive acute rehabilitation pro gram. Order PT/OT . Therapy Precautions: falls, routine, safety, spinal precautions,TLSO when out of bed PT: up to 90 min/day, at least 5 days a week, until discharge. Eval and treat. Gait training (with assistive device as needed); Strength and endurance training; Bed mobility and Transfer training; RO M and stretching exercises; Joint preservation and energy conservation techn iques; Static/Dynamic balance training; Home Exercise Program (HEP). OT: up to 90 min/day, at least 5 days a week, until discharge. Eval and treat. BUE strengthening and stretc lisa; ROM exercises; ADL/IADL re-training; training for implementation of adaptive tools and devices to simplify tasks at home and work as needed, Safety with ADLs; Gross/Fine Mot or Movements. Joint preservation and energy conservation techniques; HEP #Lumbar Spinal Stenosis with Radiculopathy - acute, improving. 06/30 discussed therapy progress to date - provided assessment of patient needs to inform the therapy treatment plan. Provided reassurance and encouragement t owards functional goals. Advised pt to focus on improving independence with fun ctional activities that they show room for improvement such as transfers patient is abl e to do bed to wheelchair transfers standby assist to contact-guard using stand pivot and rolling walker. Case discussed with internal medicine, patient had a panic attack yesterday per internal medicine will monitor on telemetry for a few days. Encouraged to use pain medication in cases of pain as his blood pr essure tends to go up if he does not use it and then does therapy. # abnormalities of gait and mobility: Cont thera py PT and OT to address and improve strength, balance, endurance, and fu nctional independence with mobility, transfers, and gait as well as decreas e potential risk of complications such as falls and skin issues. The rapist to assess and provide education for safe use of most appropriate and l east restrictive assistive device. # Hypertension. acute, Cont current meds. Assess BP. Will defer further management to hospitalist. #muscle weakness-PT and OT to eval and treat, re c use of FES to strengthen quads and hamstrings #chronic back pain #Radiculopathy # post op pain: acute, ongoing. adjust current p ain regimen. monitor for daytime sleepiness/confusion. will adjus t regimen as needed to improve therapy tolerance and allow for adequate rest. #Bowel-on bowel regimen #Neuropathic pain will continue with Lyr ica 3 times daily, Nortryptaline at hs #Urinary incontinence bladder training program w sharlene in therapy and make sure that he toilets prior to going to bed has improved incontinence at hs 06/30 #Blood loss anemia postop- will continue to [facility] with CBC and monitor for symptoms of dizziness, chest pain, shortness of breath or lightheadedness. #Status post laminectomy and lumbar fusion-lso w hen oob #incidental durotomy during surgery #Leukocytosis resolved # pressure ulcer prevention - Discussed pressure relief regimen with pt/caregiver. Advised pt to turn every 2 hours w sharlene in bed and relieve pressure every 15-20 minutes for at least 30 sec onds while in WC/chair. Diet: regular DVT prophylaxis: lovenox Dispo: to home Prognosis-good Consulting physician(s): Chip Spear-Orthoped Jazmine Arteaga-PM R Patient still benefits from inpatient rehabilita tion secondary to functional decline, back and leg pain, status post lumbar s urgery. Impairment group: Other neurologic conditions Etiologic diagnosis: Lumbar Spinal Stenosis with Radiculopathy REVIEW OF MED CONDITIONS: Date of onset: 06/18/21 Current surgery date and type: 06/20/21: Alejandro Spear nthony: Transforaminal Lumbar Interbody Fusion L4-L5, L5-S1, L4 and L5 Laminec herb, S1 partial Lami, Posterior Spinal Fusion L4-S1, Repair of inciden richard durotomy Active comorbid conditions: Hypokalemia, Inconti nence bowel and bladder, Back pain, Leukocytosis, Blood loss anemia, incidenta l durotomy Past medical and surgical hi story: Chronic Back Pain, Multiple Lumbar Surgeries Had major surgery within 100 days of admission: Yes Risk for medical/clinical complications: Anemia, Arrhythmia, Aspiration, BP fluctuation, Cardiac instability, Blood sugar fl uctuation, DVT, Constipation, Depression, Electrolyte imbalance, Hypoxia, Inci sional dehiscence, Infection, Injury d/t falls, Nutritional compromise, Pain, Renal insuff/failure, Urinary retention, Skin breakdown Pre-hospital services utilized: None Occupation/Profession: Full-time employed Education history: Return to work/school 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 Marital status: Hobbies/leisure activities: Prior living situation: Home Living with: Family Living with comment: lives with . -- SUBJECTIVE -- CHIEF COMPLAINT: back pain and leg pain/weakness -- OBJECTIVE -- VITALS (06/29 10:42 - 06/30 10:42): Temperature C: 36.6 (36.3 - 36.6) Temperature source: Oral Pulse Rate 82 (82 - 93) Respiratory rate: 20 (17 - 20) BP: 126/79 (115/68 - 145/86) I/Os (06/29 07:00 - 06/30 07:00): Net 300 Intake 700 Output 400 -- DATA -- CLINCAL NOTES REHAB: OT Eval/Daily Note (06/29/21) by Roque Hernandez stand-pivot tx from recliner<>w/c using RW and CGA Ther Ex- Pt completed task addressing UE streng th and endurance includin. w/c propulsion of appro x 400' 2x with prolonged rest breaks, 2. 2# dowel in vari ous ranges 3x10 REHAB: PT Eval/Daily Note (06/29/21) by Jessica Mcqueen Transfers: spv with RW Mobility: Walk MEDICATIONS SENNA/DOCUSATE SODIUM 2 TAB PO 2100 PREGABALIN 100 MG PO TID traMADol HCL 50 MG PO Q4H PRN METOPROLOL TARTRATE 25 MG PO BID NORTRIPTYLINE HCL 10 MG PO BEDTIME methocarbamoL 500 MG PO TID ENOXAPARIN SODIUM 40 MG SUBQ DAILY POLYVINYL ALCOHOL 1.4% 2 DROP EACH EYE BID (PRN) MAG HYDROX/AL HYDROX/SIMETH 30 ML PO Q4H PRN MELATONIN 3 MG PO BEDTIME PRN HYDROcodone BITARTRATE/APAP 1 TAB PO Q6H (PRN) polyethylene glycoL 3350 1 PKT PO DAILY PRN ACETAMINOPHEN 1000 MG PO ONCALL ACETAMINOPHEN 650 MG PO Q4H PRN bisacodyL 10 MG RECTAL DAILY PRN hydrALAZINE HCL 10 MG IV Q6H PRN LABS TROPI (06/29/21 13:52) TROPONIN-I <0.020 GLU BED (06/29/21 13:27) GLUBED 112 H BASIC METABOLIC PANEL (06/26/21 08:30) SODIUM 134L L POTASSIUM 3.7 CHLORIDE 99L L CARBON DIOXIDE 26 GLUCOSE 115H H BLOOD UREA NITROGEN 13 GLOMERULAR FILTRATION RATE >=60 max estimate CREATININE 1.02 CALCIUM 8.8 CBC W/AUTO DIFF (06/26/21 08:30) WHITE BLOOD CELL 7.4 RED BLOOD CELL 2.18 L HEMOGLOBIN 9.5L L HEMATOCRIT 26.8L L MEAN CELL VOLUME 123 H MEAN CELL HGB 43.6 H MEAN CELL HGB CONCENTRATION 35.4 H RED CELL DISTRIBUTION WIDTH 12.4 PLATELET COUNT 414H H MEAN PLATELET VOLUME 10.1 NEUTROPHIL % 66.9 IMMATURE GRANULOCYTE % 0.5 LYMPHOCYTE % 20.5 MONOCYTE % 7.8 EOSINOPHIL % 3.6 BASOPHIL % 0.7 NUCLEATED RBC % 0.0 NEUTROPHIL # 4.9 LYMPHOCYTE # 1.52 MONOCYTE # 0.6 EOSINOPHIL # 0.3 BASOPHIL # 0.1 POLYCHROMASIA 1+ H MACROCYTOSIS 2+ H PLATELET MORPHOLOGY Normal ADDITIONAL COMMENTS: The most recent therapy notes from all therapist s have been reviewed in the chart and selected pertinent excerpts are includ ed in this note. -- ATTESTATION -- TIME SPENT ON PATIENT CARE: - Direct 20 minutes - Coordination of Care 15 minutes - > 50% of time spent on Counseling/Care Coordi nation CARE ACTIVITIES / CARE COORDINATION: - I have reviewed the history and repeated the stokes elements - I have seen and examined this patient - I have reviewed the progress in the clinical course since the last examination - I have discussed the madelyn ent's condition with other members of the care team Signed in PatientKeeper by Meri Rosas MD on 06/30/21 at 15:13 Electronically Signed by Meri Rosas MD on 0 06/30/21 at 1513 ATTENTION *EDITS and/or ADDENDA must be made in Patient Ke eper for this note. * * Edits and ammendments created in backstitch are not visible * * in Patient Keeper or the legal medical record (HPF). * [facility] #: [id number] END OF REPORT 2021-06-29 [id number] [facility] 13:31:00-00:[address] [place] [id number] PATIENT NAME: JUAN ALBERTOELAYNEHERBJEZ ALDRICH JR ADMIT DATE: 06/26/21 ACCOUNT NO: [id number] ROOM NO: N.0312 AGE: 55 REPORT TYPE: ELECTROCARDIOGRAM SEX: M ADMITTING PHYSICIAN:Meri Rosas MD ATTENDING PHYSICIAN:Meri Rosas MD Order: [id number] Test Reason : Resting 12-lead ECG Test Date/Time Stamp: WedJun 29 2021 13:31:06 Blood Pressure : / mmHG Vent. Rate : 077 BPM Atrial Rate : 000 BPM P-R Int : 169 ms QRS Dur : 113 ms QT Int : 409 ms P-R-T Axes : 044 -16 025 degree s QTc Int : 441 ms SINUS RHYTHM INCOMPLETE RIGHT BUNDLE BRANCH BLOCK NONSPECIFIC T-WAVE ABNORMALITY BORDERLINE ECG Reviewed by Confirmed by HEATHER CROWLEY ([id number]) on 06/30/2021 10:50:13 PM Referred By: Meri Rosas Confirmed by:HEATHER CROWLEY at 2250 PATIENT NAME HERB AVENDANO JR ACCOUNT #: [id number] 2021-06-29 [facility]00 [facility] ([facility]) Hospitalist Progress Note REPORT #: [id number] REPORT STATUS: Signed DATE: 06/29/21 TIME: 1229 PATIENT: HERB AVENDANO JR UNIT #: [id number] ROOM #: [facility] BED: 1 : 65 AGE: 55 SEX: M ATTEND: Chitra Rosas MD ADM AUTHOR: Andressa Fong ATTENTION *EDITS and/or ADDENDA must be made in Patient Ke eper for this note. * * Edits and ammendments created in backstitch are not visible * * in Patient Keeper or the legal medical record (HPF). * -- CO-SIGNATURE -- COMMENTS: Case discussed with ROTARY SHEAR OPERATOR. Agree with the findings and plan as documented. Moderate complexity. Signed in PatientKeeper by SIMON VORA DO on 0 06/30/21 at 16:34 -- ASSESSMENT AND PLAN -- ADDITIONAL COMMENTS: PLAN Chronic back pain secondary to L4-S1 lumbar sten osis ->Improving - Stable post-op - s/p transforaminal lumbar interbody fusion, L4 -S1, L4-L5 laminectomy, S1 partial laminectomy, and posterior spinal fusion , L4 to S1 on 06/20/21 - CT L spine on 06/22/21 stable per ortho - Pain control - Continue PT -May dc drain after 8 hours of less then 50cc ou tput, per surgeon Incidental durotomy - s/p repair of incidental durotomy on 06/20/21 HTN - BP stable, continue metoprolol -We will control pain, seems to have hypertensio n 2/2 pain Hypokalemia - Improved with repletion Leukocytosis - Resolved; likely reactive Post-op blood loss anemia - Hgb stable in 9 range Constipation - continue bowel regimen - encourage ambulation Anxiety related to physical condition -Patient needs reinforcement Code status: Full DVT ppx: Lovenox Dispo: Per Rehab -- SUBJECTIVE -- PATIENT NARRATIVE: Patient doing great, pain is well controlled, zay gibson pain meds now. Walking in halls with PT. -- OBJECTIVE -- VITALS (06/28 12:29 - 06/29 12:29): Temperature C: 36.4 (36.4 - 36.6) Temperature source: Oral Pulse Rate 86 (85 - 102) Respiratory rate: 18 BP: 130/77 (114/72 - 131/83) I/Os (06/28 07:00 - 06/29 07:00): Net -120 Intake 120 Output 240 -EXAM- GENERAL: Well developed, well nourished, in no apparent distress. HEAD: Normocephalic, atraumatic. EYES: PERRL, EOM intact, conjunctiva and sclera clear, without nystagmus, lids normal. EARS: grossly normal hearing. NOSE: No deformity, no discharge, no inflammatio n, no lesions. MOUTH: Oropharynx without deformities or lesions , normal mucosa.. LUNGS: Clear bilaterally with normal respiratory effort. HEART: Regular rate and rhythm, normal S1, S2, n o murmurs, no rubs, no gallops, no clicks. ABDOMEN: Soft, non-tender, no organomegaly, no m asses noted. MUSCULOSKELETAL: No deformity, no scoliosis note d of thoracic or lumbar spine, joint ROM grossly normal, normal gait an d station. Brace in place EXTREMITIES: No clubbing, no cyanosis, no edema. PULSES: Pulses normal in all extremities. SKIN: Lower back incision intact with FIDEL PSYCHIATRIC: Alert and oriented to time, person, place. Normal mood and affect, intact judgment and insight, anxious -- DATA -- MEDICATIONS SENNA/DOCUSATE SODIUM 2 TAB PO 2100 PREGABALIN 100 MG PO TID traMADol HCL 50 MG PO Q4H PRN METOPROLOL TARTRATE 25 MG PO BID NORTRIPTYLINE HCL 10 MG PO BEDTIME methocarbamoL 500 MG PO TID ENOXAPARIN SODIUM 40 MG SUBQ DAILY POLYVINYL ALCOHOL 1.4% 2 DROP EACH EYE BID (PRN) MAG HYDROX/AL HYDROX/SIMETH 30 ML PO Q4H PRN MELATONIN 3 MG PO BEDTIME PRN HYDROcodone BITARTRATE/APAP 1 TAB PO Q6H (PRN) polyethylene glycoL 3350 1 PKT PO DAILY PRN ACETAMINOPHEN 1000 MG PO ONCALL ACETAMINOPHEN 650 MG PO Q4H PRN bisacodyL 10 MG RECTAL DAILY PRN hydrALAZINE HCL 10 MG IV Q6H PRN -- ATTESTATION -- CARE ACTIVITIES / CARE COORDINATION: - I have reviewed the history and repeated the stokes elements - I have seen and examined this patient - I have reviewed the progress in the clinical course since the last examination - I have discussed the madelyn ent's condition with other members of the care team Signed in PatientKeeper by Andressa Fong APRN ROTARY SHEAR OPERATOR on 06/29/21 at 13:53 Cosigned by SIMON VORA DO on 06/30/21 at 16:3 4 at 1634 Electronically Signed by Simon Vora DO on at 1634 ATTENTION *EDITS and/or ADDENDA must be made in Patient Ke eper for this note. * * Edits and ammendments created in [facility] are not visible * * in Patient Keeper or the legal medical record (HPF). * [facility] #: [id number] END OF REPORT 2021-06-28 [facility] 23:20:00-00:00 [facility] ([facility]) Rehab Indiv Overall POC REPORT#:[id number] REPORT STATUS: Signed DATE:06/28/21 TIME: 2319 PATIENT: HERB AVENDANO JR UNIT #: [id number] ROOM: [facility] BED: 1 : 65 AGE: 55 SEX: M ATTEND: Meri Rosas MD ADM AUTHOR: Meri Rosas MD * ALL edits or amendments must be made on the [employer]/computer document * Individualized Overall POC HPI Impairment group: neurologic conditions NOTE Document ONLY ONE Impairment Group Neurologic conditions: other neuro conditions Etiologic diagnosis: Lumbar spinal stenosis w Radiculopathy Medical Expected Course Expected DC destination: Expected DC destination: Home Problem List/A P: 1. Inadvertent durotomy (Acute, Onset: 06/26/21 ) 2. Hypokalemia (Acute, Onset: 06/26/21) 3. Chronic back pain (Acute, Onset: 06/26/21) 4. S/P lumbar laminectomy (Acute, Onset: ) 5. Lumbar stenosis (Acute, Onset: 06/26/21) Medical prognosis: good Medical prognosis details: pt motivation, endura nce Expected course of Tx: Lumbar Spinal Stenosis with Radiculopathy - acute, improving. Pt will tolerate 3 hrs of therapy per day and wi ll improve his functional independence and pain control # abnormalities of gait and mobility: Cont thera py PT and OT to address and improve strength, balance, endurance, and fu nctional independence with mobility, transfers, and gait as well as decreas e potential risk of complications such as falls and skin issues. The rapist to assess and provide education for safe use of most appropriate and l east restrictive assistive device. # Hypertension. acute, Cont current meds. Assess BP. Will defer further management to hospitalist. #muscle weakness-PT and OT to eval and treat, re c use of FES to strengthen quads and hamstrings #chronic back pain #Radiculopathy # post op pain: acute, ongoing. adjust current p ain regimen. monitor for daytime sleepiness/confusion. will adjus t regimen as needed to improve therapy tolerance and allow for adequate rest. #Bowel-will start on bowel regimen #Neuropathic pain will continue with Lyrica 3 ti mes daily, and will start Nortryptaline at hs #Urinary incontinence will start bladder training program while in therapy and make sure that he toilets prior to going to bed #Blood loss anemia postop- will continue to gael tor with CBC and monitor for symptoms of dizziness, chest pain, shortness of breath or lightheadedness. #Status post laminectomy and lumbar fusion-lso w hen oob #incidental durotomy during surgery #Leukocytosis resolved Functional Expected Course Functional expected course: The data set between the solid lines has been im ported from multidisciplinary team documentation: __ ANTICIPATED SERVICES IN ACUTE INPATIENT REHAB: DISCIPLINE Physical Therapy Occupational Therapy Speech Therapy INTENSITY (minutes/day) 90 90 FREQUENCY (days/week) 5 5 DURATION (# of days) 10 14 EXPECTED FUNCTIONAL OUTCOMES: CARE Rolling left and Independent (6) right discharge goal: CARE Sitting to Independent (6) lying discharge goal: CARE Lying to sitting Independent (6) on side of bed discharge goal: CARE Sitting to Independent (6) standing discharge goal: CARE Chair/bed to Independent (6) chair transfer discharge goal: CARE Car transfer Setup/clean-up only (5) discharge goal: CARE Walking 10 Independent (6) feet discharge goal: CARE Walking 50 feet Independent (6) with two turns discharge goal: CARE Walking 150 Independent (6) feet discharge goal: CARE Walking 10 feet on Independent (6) uneven surface discharge goal: CARE 1 step (curb) Independent (6) discharge goal: CARE 4 steps Independent (6) discharge goal: CARE 12 steps Supervise/touch asst (4) discharge goal: CARE Picking up Independent (6) object discharge goal: CARE [place] 50 feet Not applicable with two turns discharge goal: CARE [place] 150 Not applicable feet discharge goal: CARE Toileting hygiene Supervise/touch asst (4) discharge goal: CARE Transfer on/off toilet Supervise/touch ass t (4) or commode discharge goal: CARE Eating discharge goal: Independent (6) CARE Oral hygiene Independent (6) discharge goal: CARE Shower/bathe Setup/clean-up only (5) self discharge goal: CARE Upper body Independent (6) dressing discharge goal: CARE Lower body Independent (6) dressing discharge goal: CARE Putting on/taking Independent (6) off footwear discharge goal: Bowel function goal: Continent of stool Bladder function goal: Continent of all bladder episodes _ ELOS Attestation: Based upon the review of clinical staff recommendations of frequency, duration and intensity and individual assessment of this patient, I estimate the following: Estimated length of stay: 12 days MD Review/Recommendation Attestation: Based upon my physical evaluation of the patient and input from the interdisciplinary team members I have de veloped this interdisciplinary overall plan of care and determined the admission to the IRF is reasonable and necessary.The IOPOC will be updated weekly and m odified under my direction. Patient can be expected to actively participate in, and benefit from, an intensive rehab therapy prog akanksha whose intensity is not provided in lower levels of care. Complex acute rehab needs: Med adjustment/mgmt., New medical diagnosis, New medical complication, Postsurgery req mgt/care, Hospitalist consult, VTE Risk Electronically Signed by Meri Rosas MD on at 2322 RPT #:[id number] END OF REPORT 2021-06-28 [facility]00 [facility] ([facility] Hospitalist Progress Note REPORT #: [id number] REPORT STATUS: Signed DATE: 06/28/21 TIME: 1625 PATIENT: HERB AVENDANO JR UNIT #: [id number] ROOM #: [id number] BED: 1 : 65 AGE: 55 SEX: M ATTEND: Chitra Rosas MD ADM AUTHOR: Andressa Fong APRNNP ATTENTION *EDITS and/or ADDENDA must be made in Patient Ke eper for this note. * * Edits and ammendments created in backstitch are not visible * * in Patient Keeper or the legal medical record (HPF). * -- CO-SIGNATURE -- COMMENTS: Case discussed with ROTARY SHEAR OPERATOR. Agree with the findings and plan as documented. Moderate complexity. Signed in PatientKeeper by SIMON VORA DO on 0 06/29/21 at 13:24 -- ASSESSMENT AND PLAN -- ADDITIONAL COMMENTS: PLAN Chronic back pain secondary to L4-S1 lumbar sten osis ->Improving - Stable post-op - s/p transforaminal lumbar interbody fusion, L4 -S1, L4-L5 laminectomy, S1 partial laminectomy, and posterior spinal fusion , L4 to S1 on 06/20/21 - CT L spine on 06/22/21 stable per ortho - Pain control - Continue PT -May dc drain after 8 hours of less then 50cc ou tput, per surgeon Incidental durotomy - s/p repair of incidental durotomy on 06/20/21 HTN - BP stable, continue metoprolol -We will control pain, seems to have hypertensio n 2/2 pain Hypokalemia - Improved with repletion Leukocytosis - Resolved; likely reactive Post-op blood loss anemia - Hgb stable in 9 range Constipation - continue bowel regimen - Anxiety related to physical condition -Patient needs reinforcement Code status: Full DVT ppx: Lovenox Dispo: Per Rehab -- SUBJECTIVE -- PATIENT NARRATIVE: Patient remains hemodynamically stable, out of b ed to chair. Complaining of severe pain and hypertension secondary to pain. Plan discussed with patient and family, and RN. -- OBJECTIVE -- VITALS (06/27 16:26 - 06/28 16:26): Temperature C: 36.5 (36.3 - 36.7) Pulse Rate 88 (80 - 95) Respiratory rate: 18 (17 - 18) BP: 131/83 (114/63 - 150/83) I/Os (06/27 07:00 - 06/28 07:00): Net 270.00 Intake 270.00 -EXAM- GENERAL: Well developed, well nourished, in no a pparent distress. HEAD: Normocephalic, atraumatic. EYES: PERRL, EOM intact, conjunctiva and sclera clear, without nystagmus, lids normal. EARS: grossly normal hearing. NOSE: No deformity, no discharge, no inflammati on, no lesions. MOUTH: Oropharynx without deformities or lesions , normal mucosa.. LUNGS: Clear bilaterally with normal respiratory effort. HEART: Regular rate and rhythm, normal S1, S2, n o murmurs, no rubs, no gallops, no clicks. ABDOMEN: Soft, non-tender, no organomegaly, no m asses noted. MUSCULOSKELETAL: No deformity, no scoliosis note d of thoracic or lumbar spine, joint ROM grossly normal, normal gait an d station. Brace in place EXTREMITIES: No clubbing, no cyanosis, no edema. PULSES: Pulses normal in all extremities. SKIN: Lower back incision intact with FIDEL PSYCHIATRIC: Alert and oriented to time, person, place. Normal mood and affect, intact judgment and insight, anxious -- DATA -- MEDICATIONS SENNA/DOCUSATE SODIUM 2 TAB PO 2100 traMADol HCL 50 MG PO Q4H PRN NORTRIPTYLINE HCL 10 MG PO BEDTIME methocarbamoL 500 MG PO TID ACETAMINOPHEN 1000 MG PO ONCALL POLYVINYL ALCOHOL 1.4% 2 DROP EACH EYE BID (PRN) MAG HYDROX/AL HYDROX/SIMETH 30 ML PO Q4H PRN MELATONIN 3 MG PO BEDTIME PRN HYDROcodone BITARTRATE/APAP 1 TAB PO Q6H (PRN) polyethylene glycoL 3350 1 PKT PO DAILY PRN ACETAMINOPHEN 650 MG PO Q4H PRN bisacodyL 10 MG RECTAL DAILY PRN hydrALAZINE HCL 10 MG IV Q6H PRN PREGABALIN 100 MG PO TID METOPROLOL TARTRATE 25 MG PO BID ENOXAPARIN SODIUM 40 MG SUBQ DAILY -- ATTESTATION -- CARE ACTIVITIES / CARE COORDINATION: - I have reviewed the history and repeated the stokes elements - I have seen and examined this patient - I have reviewed the progress in the clinical course since the last examination - I have discussed the madelyn ent's condition with other members of the care team Signed in PatientKeeper by Andressa Fong APRN, NP on 06/28/21 at 16:39 Cosigned by SIMON VORA DO on 06/29/21 at 13:2 4 at 1324 Electronically Signed by Simon Vora DO on at 1324 ATTENTION *EDITS and/or ADDENDA must be made in Patient Ke eper for this note. * * Edits and ammendments created in backstitch are not visible * * in Patient Keeper or the legal medical record ([facility]). * RPT #: [id number] END OF REPORT 2021-06-28 [facility] 11:59:00-00:00 [facility] ([facility]) Orthopedic Progress Note REPORT #: [id number] REPORT STATUS: Signed DATE: 06/28/21 TIME: 1159 PATIENT: JUAN ALBERTOHERB GARY MARTIN UNIT #: [id number] ROOM #: N.0312 BED: 1 : 65 AGE: 55 SEX: M ATTEND: Chitra Rosas MD ADM AUTHOR: Chip Spear MD ATTENTION *EDITS and/or ADDENDA must be made in Patient Fabian weinberg for this note. * * Edits and ammendments created in backstitch are not visible * * in Patient Keeper or the legal medical record (HPF). * -- ASSESSMENT AND PLAN -- HOSPITAL COURSE TO DATE: POD 1 exploration and irrigation of the lumbar w ound. GENERAL ASSESSMENT: 1. Therapy as scheduled 2. May dc drain after 8 hours of less then 50cc output 3. pain control -- SUBJECTIVE -- HPI: Patient looks and feels better this morning. -REVIEW OF SYSTEMS- GENERAL: Negative for fever, malaise, fatigue. EYES: Negative for blurry vision. No diplopia. EARS/NOSE/THROAT: Negative for sore throat. No o talgia. No rhinorrhea. BREAST: Negative for change in shape, swelling, masses, nipple discharge, pain, skin changes. RESPIRATORY: Negative for dyspnea or wheeze. No cough. CARDIOVASCULAR: Negative for chest pain or palpi tations. No extremity swelling. GASTROINTESTINAL: Negative for abdominal pain or nausea. No emesis. No diarrhea. GENITOURINARY: Negative for dysuria, frequency, or urgency. No gross hematuria. MUSCULOSKELETAL: Negative for joint stiffness, p ain, or arthralgias. SKIN: Negative for rashes. No pruritus. NEUROLOGICAL: Negative for headache. No vertigo. Denies paresthesias. PSYCHIATRIC: Negative for specific complaints. ENDOCRINE: Negative for cold intolerance, heat i ntolerance, polyphagia, polydipsia, polyuria, weight change , fatigue. HEMATALOGIC / LYMPHORETICULAR: Negative for exce ssive bleeding, unusual masses. ALLERGIC / IMMUNOLOGIC: Negative for heat/cold i ntolerance, polydipsia, or polyuria. -- OBJECTIVE -- VITALS (06/27 12:01 - 06/28 12:01): Temperature C: 36.7 (36.3 - 36.7) Pulse Rate 95 (80 - 95) Respiratory rate: 18 (17 - 18) BP: 116/63 (116/63 - 150/81) I/Os (06/27 07:00 - 06/28 07:00): Net 270.00 Intake 270.00 -EXAM- GENERAL: Well developed, well nourished, in no a pparent distress. HEAD: Normocephalic, atraumatic. EYES: PERRL, EOM intact, conjunctiva and sclera clear, without nystagmus, lids normal. EARS: TM's intact and clear, normal canals, duane sly normal hearing. NOSE: No deformity, no discharge, no inflammati on, no lesions. MOUTH: Oropharynx without deformities or lesions , normal mucosa.. NECK: No masses, no thyromegaly, no abnormal cer vical nodes, trachea midline. CHEST: Grossly normal appearance. BREAST: No masses, no gynecomastia noted. LUNGS: Clear bilaterally with normal respiratory effort. HEART: Regular rate and rhythm, normal S1, S2, n o murmurs, no rubs, no gallops, no clicks. ABDOMEN: Soft, non-tender, no organomegaly, no m asses noted. MUSCULOSKELETAL: No deformity, no scoliosis note d of thoracic or lumbar spine, joint ROM grossly normal, normal gait an d station. EXTREMITIES: No clubbing, no cyanosis, no edema. NEUROLOGICAL: No focal deficits, cranial nerves II-XII grossly intact, normal sensation, normal reflexes, normal coord ination, normal muscle strength, normal tone. PULSES: Pulses normal in all extremities. RECTAL: Normal rectal tone, no masses. GENITOURINARY: Normal external genitalia. SKIN: Intact without significant lesions, or tammy hes. Wound looks good. LYMPH NODES: No significant cervical node adenop athy. No significant axillary node adenopathy. No significant inguin al node adenopathy. PSYCHIATRIC: Alert and oriented to time, person, place. Normal mood and affect, intact judgment and insight. -- DATA -- MEDICATIONS SENNA/DOCUSATE SODIUM 2 TAB PO 2100 traMADol HCL 50 MG PO Q4H PRN NORTRIPTYLINE HCL 10 MG PO BEDTIME methocarbamoL 500 MG PO TID ACETAMINOPHEN 1000 MG PO ONCALL POLYVINYL ALCOHOL 1.4% 2 DROP EACH EYE BID (PRN) MAG HYDROX/AL HYDROX/SIMETH 30 ML PO Q4H PRN MELATONIN 3 MG PO BEDTIME PRN HYDROcodone BITARTRATE/APAP 1 TAB PO Q6H (PRN) polyethylene glycoL 3350 1 PKT PO DAILY PRN ACETAMINOPHEN 650 MG PO Q4H PRN bisacodyL 10 MG RECTAL DAILY PRN hydrALAZINE HCL 10 MG IV Q6H PRN PREGABALIN 100 MG PO TID METOPROLOL TARTRATE 25 MG PO BID ENOXAPARIN SODIUM 40 MG SUBQ DAILY Signed in PatientKeeper by Chip Spear MD on 06/28/21 at 12:06 Electronically Signed by Chip Spear MD on at 1206 ATTENTION *EDITS and/or ADDENDA must be made in Patient Ke eper for this note. * * Edits and ammendments created in [facility] are not visible * * in Patient Keeper or the legal medical record ([facility]). * [facility] #: [id number] END OF REPORT 2021-06-27 [id number] [facility] 17:53:00-00:[address] [place] [id number] PATIENT NAME: HERB AVENDANO JR ADMIT DATE: 06/26/21 ACCOUNT NO: [id number] ROOM NO: N.0312 AGE: 55 REPORT TYPE: OPERATIVE REPORT SEX: M ADMITTING PHYSICIAN:Meri Rosas MD ATTENDING PHYSICIAN:Meri Rosas MD OPERATION DATE: 06/27/2021 PREOPERATIVE DIAGNOSES: 1. Postoperative lumbar stenosis. 2. Lumbar radicular syndrome. 3. Failed back syndrome. POSTOPERATIVE DIAGNOSES: 1. Postoperative lumbar stenosis. 2. Lumbar radicular syndrome. 3. Failed back syndrome. PROCEDURES: 1. Irrigation and exploration of wound postopera tive. 2. Excisional debridement of bone graft, lumbar wound. SURGEON: Chip Spear MD LACQUERER: None. ANESTHESIA: General endotracheal. ESTIMATED BLOOD LOSS: 10 mL. INTRAVENOUS FLUIDS: 1 liter. URINE OUTPUT: No Lauren. CULTURES: None. SPECIMENS: None. DRAINS: Hemovac. DISPOSITION: To recovery. INDICATIONS: This patient is a 55-year-old male who is a week out from a transforaminal lumbar interbody fusion from L4 t o S1. The patient immediately postoperatively was doing great with no issues. He was working with physical therapy. Two days later, he started having signi ficant left leg pain and weakness. A few days after that, he started havi ng some urinary urgency. The patient had a CT scan, which showed some bone gr aft material within the canal PATIENT NAME HERB AVENDANO ACCOUNT #: [id number] and then the left neural foramen. The decision w as made to take the patient back for exploration of wound and debridement of bone graft. The risks are inclusive of, but not exclusive of bleeding, inf ection, nerve damage, chronic pain, and need for reoperation. There is also risk of sudden , anesthetic risk, pulmonary risks including atelectasis and pneumonia. Blood clot risks including deep venous thrombosis and pulmonary e mbolism. Cardiac risks including abnormal heart rhythms and chepe cardial infarction. There is also risk of nonunion and need for future spinal fusion. PROCEDURE IN DETAIL: The patient was identified in the preoperative holding area and brought to the oper ating room where general endotracheal anesthesia was found to be adequate. He was positioned prone on a Keanu frame. All bony prominences were padded appr opriately. The back was prepped and draped in usual sterile fashion for a procedure of this sort. A timeout was conducted. Preoperative antibiotics were given. The previous skin incision was utilized and reopened. We went through skin and subcutaneous tissues. Lumbodorsal fascia was reo pened as well. There was a small blood collection within the wound bed; how ever, no sign of increased pressure due to presence of blood or CSF. We savanna rided the bone graft material that we did find in the karie l. We paid particular attention to the left foramen at L4-L5 and L5-S1. We debrided all of the bone graft material from there. In the end, we had freely mobile exiting nerve root s from the L4 and L5. The traversing nerve roots were also without any compression. The canal was widely patent. We then copiously irrigated the wound with a cysto tubing system for a total of 3 liters of saline. Once this was done, we began closure after checking the foramens again to ensure that bilaterally, there were no stenoses. We closed the lumbodorsal fascia with #1 Vicryl sutures. T he skin was closed with 2-0 Vicryl, followed by subcuticular 3-0 Vicryl sutu res. Sterile dressing was applied after Steri-Strips were placed. The madelyn ent was transferred from the operating table to the hospital bed where anesth esia was discontinued. Dictated By: Chip Spear MD WT: OP:NKASSANDRA/DNANA/BJ Conf#: [id number]/DID#: [id number] Authenticated by Chip Spear MD On 06/28/2021 12:06:48 PM Electronically Signed by Chip Spear MD on at 1206 PATIENT NAME HERB AVENDANO JR ACCOUNT #: [id number] 2021-06-27 [facility] 16:04:00-00:00 [facility] ([facility]) Brief Operative Report REPORT #: [id number] REPORT STATUS: Signed DATE: 06/27/21 TIME: 1604 PATIENT: HERB AVENDANO JR UNIT #: [id number] ROOM #: N.0312 BED: 1 : 65 AGE: 55 SEX: M ATTEND: Chitra Rosas MD ADM AUTHOR: Chip Spear MD ATTENTION *EDITS and/or ADDENDA must be made in Patient [facility] for this note. * * Edits and ammendments created in [facility] are not visible * * in Patient Keeper or the legal medical record ([facility]). * -- BRIEF OP NOTE -- PRE-OPERATIVE DIAGNOSIS: Lumbar stenosis POST-OPERATIVE DIAGNOSIS: same NAME OF PROCEDURE: Exploration and excisional debridement of post o p lumbar wound SURGEON: Chip Spear MD LACQUERER(S): none FINDINGS: bone graft in canal and foramen ESTIMATED BLOOD LOSS (ML'S): 10 SPECIMEN(S) REMOVED AND/OR ALTERED: bone graft material Signed in PatientKeeper by Chip Spear MD on 06/27/21 at 17:55 Electronically Signed by Chip Spear MD on at 1755 ATTENTION *EDITS and/or ADDENDA must be made in Patient [facility] for this note. * * Edits and ammendments created in [facility] are not visible * * in Patient Keeper or the legal medical record ([facility]). * [facility] #: [id number] END OF REPORT 2021-06-27 [facility] 11:06:00-00:00 [facility]. History Physical REPORT #: [id number] REPORT STATUS: Signed DATE: 06/27/21 TIME: 1106 PATIENT: HERB AVENDANO JR UNIT #: [id number] ROOM #: [facility] BED: 1 : 65 AGE: 55 SEX: M ATTEND: Chitra Rosas MD ADM AUTHOR: Meri Rosas MD ATTENTION *EDITS and/or ADDENDA must be made in Patient Ke eper for this note. * * Edits and ammendments created in backstitch are not visible * * in Patient Keeper or the legal medical record ([facility]PF). * -- HISTORY -- ADMISSION DATE: 2021-06-26 PRIMARY CARE PROVIDER: Chip Spear MD CHIEF COMPLAINT: back pain and leg pain/weakness HPI: Herb Avendano is a 55 year old male who presented to [facility] for a scheduled TLIF L4-S1 repair of dural tear. He has a PMHx s ignificant for chronic back pain and has had multiple lumbar surgeries. Dr. Spear, Orthopedic Surgeon admitted him on 06/20/21 for L4-L5 and L5-S1 internal disk derangement and L4-L5 and L5-S1 lumbar spinal stenosis with radiculopa thy as well as was found to have an incidental durotomy. He performed a obando sforaminal lumbar interbody fusion on L4-L5 and L5-S1 as well as laminectomy on L4 and L5 and partial on S1. He also repaired the durotomy. The injuries resulted from a fall at work and failed outpatient conservative treatment. 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 He lives in a single story home with his spouse and his goals are to be abl e to walk again without pain. Mr. Avendano tolerated the pro cedure well and post operatively he developed blood loss anemia (9.0 hgb), Hypokalemia, and Leukocyt osis. He also presents with significant deficits in his functional mobility as well as experiencing bowel and bladder incontinence. He will benefit a much more intense comprehensive rehab program so his medical issues can be manag ed as well as participate in three hours of therapy five days a week to regai n his strength, mobility, transfers, gait, distance, and ADLs to ensure a safe discharge home and decrease the burden of care on his spouse and fa jose. Patient states he still has pain that radiates down his legs wit h right foot nerve pain worse than the left. He still has intermittent knee buckling on the right knee. Also he has some urinary incontinence at night. Last bowel m ovement was yesterday. He was using a right knee brace intermittently at home. Many years ago he has tried gabapentin but it made him have anger outbursts. -REVIEW OF SYSTEMS- GENERAL: Negative for fever, malaise, + fatigue. EYES: Negative for blurry vision. No diplopia. EARS/NOSE/THROAT: Negative for sore throat. No o talgia. No rhinorrhea. RESPIRATORY: Negative for wheeze. No cough. (-) dyspnea. CARDIOVASCULAR: Negative for chest pain or palpitations. (-) extremity swelling. GASTROINTESTINAL: Negative f or nausea. No emesis. No diarrhea. No abdominal pain GENITOURINARY: Negative for gross hematuria, dys uria, frequency, urgency. (+) incontinence MUSCULOSKELETAL: Negative for joint stiffness, a rthralgias, (+) pain SKIN: No pruritus. No rash on visible areas. (+) wound NEUROLOGICAL: Negative for headache, numbness, d izziness, paresthesias, + weakness, (-) cognitive impairment PSYCHIATRIC: Negative for specific complaints. -EXAM- GENERAL: in no apparent distress, lying in bed HEAD: Normocephalic, atraumatic EYES: sclera clear, reactive pupils EARS: no discharge or erythema noted, grossly intact hearing NOSE: No deformity, no discharge NECK: supple, trachea midline LUNGS: normal respiratory effort and Clear bilat erally in upper lobes HEART: Regular rate and rhythm ABDOMEN: soft , non-tender, no distension, hypoa ctive bowel sounds present MUSCULOSKELETAL: No deformity, panel instrument repairer strength is 5/5 EXTREMITIES: No clubbing, no cyanosis, no edema . NEUROLOGICAL: No new focal deficits on exam, imp aired coordination, decreased muscle strength in bilateral hip flexors and rig ht knee extensor at 4- out of 5, L KE is 5-/5 left ankle dorsiflexion 4/out of 5 right ankle dorsiflexion 5- out of 5, speech intact . following commands, li ght touch diminished in feet SKIN: Intact without significant rashes on visible areas with post op wound on lumbar spine PSYCHIATRIC: alert and awake . normal affect. Ox 4 PAST MEDICAL HISTORY: Chronic Back Pain, Multiple Lumbar Surgeries, ra diculopathy PAST SURGICAL HISTORY: see above in [facility] FAMILY HISTORY: Reviewed with patient and found to be noncontrib utory. -SOCIAL HISTORY- -TOBACCO USE- DETAILS/COMMENTS: Denies -VAPING/INHALED SOLVENTS- DETAILS/COMMENTS: Denies -ALCOHOL USE- DETAILS/COMMENTS: Socially -DRUG USE- DETAILS/COMMENTS: Denies LIVING SITUATION: Patient lives with in one-story house was u sing rolling walker for ambulation at home and was independent with ADLs . -- ALLERGIES/HOME MEDS -- ALLERGIES: lactose (Unknown - Allergy) Tetanus Vaccines and Toxoid (Unknown - Allergy) HOME MEDICATIONS: HYDROcod/APAP 5/325 Tab ([place] 5/325 Tab) 1 TAB PO Q6H Methocarbamol Tab (Robaxin Tab) 500 MG PO TID Metoprolol Tartrate Tab (Lopressor Tab) 25 MG PO BID polyvinyl alcohol 1.4 % eye drops 2 DROP Each Ey e BID Pregabalin Cap (Lyrica Cap) 100 MG PO TID HOME MEDICATIONS COMMENTS: reviewed home and current medications within the chart -- OBJECTIVE -- VITALS (06/26 11:06 - 06/27 11:06): Temperature C: 36.6 (36.4 - 36.6) Temperature source: Oral Pulse Rate 91 (91 - 96) Respiratory rate: 17 (15 - 18) BP: 118/69 (118/69 - 136/81) -- DATA -- LABS BASIC METABOLIC PANEL (06/26/21 08:30) SODIUM 134L L POTASSIUM 3.7 CHLORIDE 99L L CARBON DIOXIDE 26 GLUCOSE 115H H BLOOD UREA NITROGEN 13 GLOMERULAR FILTRATION RATE >=60 max estimate CREATININE 1.02 CALCIUM 8.8 CBC W/AUTO DIFF (06/26/21 08:30) WHITE BLOOD CELL 7.4 RED BLOOD CELL 2.18 L HEMOGLOBIN 9.5L L HEMATOCRIT 26.8L L MEAN CELL VOLUME 123 H MEAN CELL HGB 43.6 H MEAN CELL HGB CONCENTRATION 35.4 H RED CELL DISTRIBUTION WIDTH 12.4 PLATELET COUNT 414H H MEAN PLATELET VOLUME 10.1 NEUTROPHIL % 66.9 IMMATURE GRANULOCYTE % 0.5 LYMPHOCYTE % 20.5 MONOCYTE % 7.8 EOSINOPHIL % 3.6 BASOPHIL % 0.7 NUCLEATED RBC % 0.0 NEUTROPHIL # 4.9 LYMPHOCYTE # 1.52 MONOCYTE # 0.6 EOSINOPHIL # 0.3 BASOPHIL # 0.1 POLYCHROMASIA 1+ H MACROCYTOSIS 2+ H PLATELET MORPHOLOGY Normal UA RFLX MICR amp;CULT IF INDICATED (06/24/21 20: 55) UA COLOR YELLOW UA APPEARANCE Clear UA GLUCOSE DIPSTICK NEGATIVE UA BILIRUBIN DIPSTICK NEGATIVE UA KETONE DIPSTICK NEGATIVE UA SPECIFIC GRAVITY 1.024 UA BLOOD DIPSTICK NEGATIVE UA PH DIPSTICK 5.0 UA PROTEIN DIPSTICK NEGATIVE UA UROBILINOGEN DIPSTICK 4.0 H UA NITRITE DIPSTICK NEGATIVE UA ASCORBIC ACID DIPSTICK NEGATIVE UA LEUKOCYTE ESTERASE DIPSTICK NEGATIVE UA WBC 0-5 UA RBC 0-5 UA EPITHELIAL CELLS None UA BACTERIA None UA MUCUS 1+ TEST RESULTS XR CHEST 2 V (06/18/21 15:40) FINDINGS: The lungs are well aerated and clear. The cardio mediastinal silhouette is normal. No pleural effusion is seen. Bony tho rax is unremarkable. CT L-SPINE W/CONTRAST (06/22/21 16:45) FINDINGS: There are 5 nonrib-bearing lumbar vertebrae. Pre served lumbar lordotic curvature. No evidence of acute isabelle nita fracture or posterior element fracture. Prior discectomy at L4-L5 and L5-S1, laminectomi es at L4 and L5, and posterior instrumented fusion from L4 through S1 . The fusion hardware appears intact and in good position. Paraspinal bone grafts are also present around the fusion rods. Postsurgical sof t tissue swelling mixed with some emphysema at the level of the dominguez rgery. There is no worrisome collection in the area. Level by level evaluation: T11-T12: No disc bulge calcification. Ligamentum flavum thickening/calcification that result in mild pos terior thecal sac effacement. Patent foramina. T12-L1: No disc bulge/herniation or degenerative change. Patent canal and foramina. L1-L2: No disc bulge/herniation or degenerative change. Patent canal and foramina. L2-L3: No disc bulge/herniation. Mild ligament f lavum thickening and calcification. Patent canal and foramina. L3-L4: No disc bulge/herniation or significant d egenerative changes. Patent canal and foramina. L4-L5: Post discectomy and surgical fusion. Ther e is bone graft material in the left lateral canal space and als o and left foramen that causes mild to moderate left foraminal sten osis and possibly mild canal stenosis. The right foramen is patent. L5-S1: Mild residual endplate marginal osteophyt es and facet arthrosis that appears to cause mild to moderate bilateral frontal stenosis worse on the right. The bony canal appears paten t but the canal space evaluation is limited due to streak artifact cre ated by fusion hardware. Moderate bilateral SI joint degenerative changes . ... IMPRESSION: 1. Post discectomy and posterior surgical fusion at L4-L5 and L5-S1 as detailed above. There is some bone graft mate rial and left lateral aspect of the canal space and foramen at L4-L5, which appears to cause mild to moderate left foraminal stenosis and pos sibly mild canal stenosis. 2. Mild to moderate foraminal stenosis at L5-S1 worse on the right secondary to residual endplate marginal osteophy yuli and facet arthrosis. ADDITIONAL COMMENTS: FUNCTIONAL ASSESSMENT: FUNC. TASK PRIOR LOF CURRENT LOF EXPECTED LOF Bathing Independent Total assistance Independent U.B. Dressing Independent Partial/moderate asst Independent L.B. Dressing Independent Partial/moderate asst Independent Bed/Ch Transf. Independent Partial/moderate asst Independent Toilet Transfer Independent Partial/moderate ass t Independent Stairs Independent Total assistance Independent Locomotion Independent Partial/moderate asst Ind ependent Locomotion prior device use: None Description of prior level of locomotion: Locomotion current device: RW/FWW Locomotion current distance traveled without a r est break: 25 feet Description of current level of locomotion: madelyn ent required frequent rest breaks due to pain. guarded nataliia Description of expected level of locomot ion: increase gait, strength, mobility Language and Cognition: Alert and oriented X 4. Australian Speaking. Add'l functional comment: Prior device use: None Prior device use additional information: -- ASSESSMENT AND PLAN -- GENERAL ASSESSMENT: GENERAL ASSESSMENT: The patient is admitted for comprehensive acute rehabilitation program after Lumbar Spinal Stenosis with Radiculopathy ; now with weakness, decreased endurance, impaired mobility and ADLs as well as the functional and medical conditions listed below. The patient is admitted to inpatient rehab follo wing the declaration of a national state of emerg ency as issued by the [employer] fire [employer] of [place] on 08/11/2019. PLAN: Admit for comprehensive acute rehabilitation pro gram. Order PT/OT . Therapy Precautions: falls, routine, safety, spinal precautions, LSO when out of bed PT: up to 90 min/day, at least 5 days a week, until discharge. Eval and treat. Gait training (with assistive device as needed); Strength and endurance training; Bed mobility and Transfer training; RO M and stretching exercises; Joint preservation and energy conservation techn iques; Static/Dynamic balance training; Home Exercise Program (HEP). OT: up to 90 min/day, at least 5 days a week, until discharge. Eval and treat. BUE strengthening and stretc lisa; ROM exercises; ADL/IADL re-training; training for implementation of adaptive tools and devices to simplify tasks at home and work as needed, Safety with ADLs; Gross/Fine Mot or Movements. Joint preservation and energy conservation techniques; HEP #Lumbar Spinal Stenosis with Radiculopathy - acute, improving. # abnormalities of gait and mobility: Cont thera py PT and OT to address and improve strength, balance, endurance, and fu nctional independence with mobility, transfers, and gait as well as decreas e potential risk of complications such as falls and skin issues. The rapist to assess and provide education for safe use of most appropriate and l east restrictive assistive device. # Hypertension. acute, Cont current meds. Assess BP. Will defer further management to hospitalist. #muscle weakness-PT and OT to eval and treat, re c use of FES to strengthen quads and hamstrings #chronic back pain #Radiculopathy # post op pain: acute, ongoing. adjust current p ain regimen. monitor for daytime sleepiness/confusion. will adjus t regimen as needed to improve therapy tolerance and allow for adequate rest. #Bowel-will start on bowel regimen #Neuropathic pain will continue with Lyrica 3 ti mes daily, and will start Nortryptaline at hs #Urinary incontinence will start bladder training program while in therapy and make sure that he toilets prior to going to bed #Blood loss anemia postop- will continue to gael tor with CBC and monitor for symptoms of dizziness, chest pain, shortness of breath or lightheadedness. #Status post laminectomy and lumbar fusion-lso w hen oob #incidental durotomy during surgery #Leukocytosis resolved # pressure ulcer prevention - Discussed pressure relief regimen with pt/caregiver. Advised pt to turn every 2 hours w hile in bed and relieve pressure every 15-20 minutes for at least 30 sec onds while in WC/chair. Diet: regular DVT prophylaxis: lovenox Dispo: to home Prognosis-good Consulting physician(s): Chip Spear-Orthoped ic Jazmine Armendariz-PM R Compared to preadmission screen patient still be nefit from inpatient rehabilitation secondary to significant function al decline, spinal stenosis with radiculopathy, postop pain and above comorb idities Impairment group: Other neurologic conditions Etiologic diagnosis: Lumbar Spinal Stenosis with Radiculopathy REVIEW OF MED CONDITIONS: Date of onset: 06/18/21 Current surgery date and type: 06/20/21: Alejandro Spear nthony: Transforaminal Lumbar Interbody Fusion L4-L5, L5-S1, L4 and L5 Laminec herb, S1 partial Lami, Posterior Spinal Fusion L4-S1, Repair of inciden richard durotomy Active comorbid conditions: Hypokalemia, Inconti nence bowel and bladder, Back pain, Leukocytosis, Blood loss anemia, incidenta l durotomy Past medical and surgical hi story: Chronic Back Pain, Multiple Lumbar Surgeries Had major surgery within 100 days of admission: Yes Risk for medical/clinical complications: Anemia, Arrhythmia, Aspiration, BP fluctuation, Cardiac instability, Blood sugar fl uctuation, DVT, Constipation, Depression, Electrolyte imbalance, Hypoxia, Inci sional dehiscence, Infection, Injury d/t falls, Nutritional compromise, Pain, Renal insuff/failure, Urinary retention, Skin breakdown Pre-hospital services utilized: None Occupation/Profession: Full-time employed Education history: Return to work/school 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 Marital status: Hobbies/leisure activities: Prior living situation: Home Living with: Family Living with comment: lives with . ANTICIPATED DC PLAN/POST IRF: Primary support contact: Dorie Avendano Relationship to patient: Spouse Phone number 1: [phone] Phone number 2: Caregiver availability: 24 hours a day Caregiver can provide: Intermittent assistance, Physical assistance Patient/caregiver goals/preferences: to be able to walk without pain. Expected discharge destination: Home Expected discharge physical layout: One story, T ub/shower combo Barriers to discharge: Endurance Options discussed with patient: Yes Options discussed with caregiver: Yes Patient agrees with program requirements: Yes ACTIVITY TOLERANCE: Current treatment interventions: Occupational th erapy, Physical therapy Patient able to tolerate 3 hours of therapy a da y: Yes ACUTE INPATIENT REHAB PLAN: Estimated length of stay in days: 12 Anticipated services in acute inpatient rehab: R ehab nursing 21/12, marketing intelligence manager, Occupational therapy, Physical therapy, Prosthetics/orthotics -- ATTESTATION -- TIME SPENT ON PATIENT CARE: - Direct 45 minutes - Coordination of Care 25 minutes - > 50% of time spent on Counseling/Care Coordi nation CARE ACTIVITIES / CARE COORDINATION: - I have reviewed the history and repeated the stokes elements - I have seen and examined this patient - I have discussed the madelyn ent's condition with other members of the care team Signed in PatientKeeper by Meri Rosas MD on 06/27/21 at 13:16 at 1316 ATTENTION *EDITS and/or ADDENDA must be made in Patient Ke eper for this note. * * Edits and ammendments created in backstitch are not visible * * in Patient Keeper or the legal medical record (HPF). * [facility] #: [id number] END OF REPORT 2021-06-27 [facility] 07:34:00-00:00 [facility] ([facility] Internal Med. Consultation REPORT #: [id number] REPORT STATUS: Signed DATE: 06/27/21 TIME: 733 PATIENT: HERB AVENDANO UNIT #: [id number] ROOM #: [id number].0312 BED: 1 : 65 AGE: 55 SEX: M ATTEND: Chitra Rosas MD ADM AUTHOR: Simon Vora DO ATTENTION *EDITS and/or ADDENDA must be made in Patient Ke eper for this note. * * Edits and ammendments created in backstitch are not visible * * in Patient Keeper or the legal medical record (HPF). * -- ASSESSMENT AND PLAN -- GENERAL ASSESSMENT: Chronic back pain secondary to L4-S1 lumbar sten osis - Stable post-op - s/p transforaminal lumbar interbody fusion, L4 -S1, L4-L5 laminectomy, S1 partial laminectomy, and posterior spinal fusion , L4 to S1 on 06/20/21 - CT L spine on 06/22/21 stable per ortho - Pain control - Continue PT Incidental durotomy - s/p repair of incidental durotomy on 06/20/21 HTN - BP stable, continue metoprolol Hypokalemia - Improved with repletion Leukocytosis - Resolved; likely reactive Post-op blood loss anemia - Hgb stable in 9 range Constipation - Start bowel regimen Code status: Full DVT ppx: Lovenox Dispo: Pending rehab Time spent: >35min -- HISTORY -- CONSULT REQUESTED BY: Meri Rosas MD REASON FOR CONSULT: medical management CHIEF COMPLAINT: back pain HPI: 55 y/o male with PMHx of chronic back pa in secondary to L4-S1 lumbar stenosis, admitted for elective surgical intervention. Keisha burgess was seen by orthopedic surgeon and underwent transforaminal lumbar inte rbody fusion, L4-S1, L4-L5 laminectomy, S1 partial lami nectomy, and posterior spinal fusion, L4 to S1 with incidental durotomy s/p repair on 06/20/21. As pa tient remained stable postop, but deconditioned, patient was discharged to [facility] to continue therapy. Patient was seen this morning sitting up in a ch air. He had some pain and muscle spasm overnight, now improved. He had con stipation, now resolved. He states he is doing better. Reports walking help PAST MEDICAL HISTORY: lumbar stenosis PAST SURGICAL HISTORY: L4-S1, L4-L5 laminectomy, S1 partial laminectomy FAMILY HISTORY: HTN -SOCIAL HISTORY- -TOBACCO USE- DETAILS/COMMENTS: Denies -DRUG USE- DETAILS/COMMENTS: Denies MARITAL STATUS: LIVING SITUATION: Lives with -- ALLERGIES/HOME MEDS -- ALLERGIES: lactose (Unknown - Allergy) Tetanus Vaccines and Toxoid (Unknown - Allergy) HOME MEDICATIONS: HYDROcod/APAP 5/325 Tab ([place] 5/325 Tab) 1 TAB PO Q6H Methocarbamol Tab (Robaxin Tab) 500 MG PO TID Metoprolol Tartrate Tab (Lopressor Tab) 25 MG PO BID polyvinyl alcohol 1.4 % eye drops 2 DROP Each Ey e BID Pregabalin Cap (Lyrica Cap) 100 MG PO TID -- SUBJECTIVE -- -REVIEW OF SYSTEMS- GENERAL: Negative for fever, malaise, fatigue. EYES: Negative for blurry vision. No diplopia. EARS/NOSE/THROAT: Negative for sore throat. No o talgia. No rhinorrhea. RESPIRATORY: Negative for dyspnea or wheeze. No cough. CARDIOVASCULAR: Negative for chest pain or palpi tations. No extremity swelling. GASTROINTESTINAL: Negative for abdominal pain or nausea. No emesis. No diarrhea. MUSCULOSKELETAL: Negative for joint stiffness, p ain, or arthralgias. Had muscle spasms SKIN: Negative for rashes. No pruritus. NEUROLOGICAL: Negative for headache. No vertigo . Denies paresthesias. PSYCHIATRIC: Negative for specific complaints. ENDOCRINE: Negative for cold intolerance, heat i ntolerance, polyphagia, polydipsia, polyuria, weight change , fatigue. HEMATALOGIC / LYMPHORETICULAR: Negative for exce ssive bleeding, unusual masses. -- OBJECTIVE -- VITALS (06/26 07:34 - 06/27 07:34): Temperature C: 36.4 (36.4 - 36.5) Temperature source: Oral Pulse Rate 94 (92 - 96) Respiratory rate: 16 (15 - 18) BP: 135/76 (126/75 - 136/81) -EXAM- GENERAL: NAD HEAD: Normocephalic, atraumatic. NECK: No masses, no thyromegaly, no abnormal ce rvical nodes, trachea midline. CHEST: Grossly normal appearance. LUNGS: Clear bilaterally with normal respiratory effort. HEART: Regular rate and rhythm, normal S1, S2 ABDOMEN: Soft, non-tender, no organomegaly, no m asses noted. MUSCULOSKELETAL: Moves all extremities EXTREMITIES: No clubbing, no cyanosis, no edema. NEUROLOGICAL: No focal deficits, cranial nerves II-XII grossly intact, normal sensation, normal reflexes, normal coord ination, normal muscle strength, normal tone. SKIN: Intact without significant lesions, or tammy hes. PSYCHIATRIC: Calm -- DATA -- MEDICATIONS POLYVINYL ALCOHOL 1.4% 2 DROP EACH EYE BID (PRN) MAG HYDROX/AL HYDROX/SIMETH 30 ML PO Q4H PRN MELATONIN 3 MG PO BEDTIME PRN ONDANSETRON HCL/PF 4 MG IV Q6H PRN polyethylene glycoL 3350 1 PKT PO DAILY PRN ACETAMINOPHEN 650 MG PO Q4H PRN bisacodyL 10 MG RECTAL DAILY PRN hydrALAZINE HCL 10 MG IV Q6H PRN HYDROcodone BITARTRATE/APAP 1 TAB PO Q6H (PRN) PREGABALIN 100 MG PO TID METOPROLOL TARTRATE 25 MG PO BID methocarbamoL 500 MG PO TID (PRN) LABS COVID ASYMP AG (06/26/21 09:30) COVID 19 Asymptomatic IH AG Negative BASIC METABOLIC PANEL (06/26/21 08:30) SODIUM 134L L POTASSIUM 3.7 CHLORIDE 99L L CARBON DIOXIDE 26 GLUCOSE 115H H BLOOD UREA NITROGEN 13 GLOMERULAR FILTRATION RATE >=60 max estimate CREATININE 1.02 CALCIUM 8.8 CBC W/AUTO DIFF (06/26/21 08:30) WHITE BLOOD CELL 7.4 RED BLOOD CELL 2.18 L HEMOGLOBIN 9.5L L HEMATOCRIT 26.8L L MEAN CELL VOLUME 123 H MEAN CELL HGB 43.6 H MEAN CELL HGB CONCENTRATION 35.4 H RED CELL DISTRIBUTION WIDTH 12.4 PLATELET COUNT 414H H MEAN PLATELET VOLUME 10.1 NEUTROPHIL % 66.9 IMMATURE GRANULOCYTE % 0.5 LYMPHOCYTE % 20.5 MONOCYTE % 7.8 EOSINOPHIL % 3.6 BASOPHIL % 0.7 NUCLEATED RBC % 0.0 NEUTROPHIL # 4.9 LYMPHOCYTE # 1.52 MONOCYTE # 0.6 EOSINOPHIL # 0.3 BASOPHIL # 0.1 POLYCHROMASIA 1+ H MACROCYTOSIS 2+ H PLATELET MORPHOLOGY Normal DIFFERENTIAL SCAN (06/26/21 08:30) PLATELET MORPHOLOGY Normal -- QUALITY -- -VTE PROPHYLAXIS -GENERAL- Yes TYPE OF VTE Lovenox -- ATTESTATION -- TIME SPENT ON PATIENT CARE: - Direct CARE ACTIVITIES / CARE COORDINATION: - I have reviewed the history and repeated the stokes elements - I have seen and examined this patient - I have reviewed the progress in the clinical course since the last examination - I have discussed the madelyn ent's condition with other members of the care team ADDITIONAL DETAIL: Time spent: >60min Signed in PatientKeeper by Simon Vora DO on 0 06/27/21 at 14:07 Electronically Signed by Simon Vora DO on at 1407 ATTENTION *EDITS and/or ADDENDA must be made in Patient Ke eper for this note. * * Edits and ammendments created in backstitch are not visible * * in Patient Keeper or the legal medical record (HPF). * [facility] #: [id number] END OF REPORT 2021-06-26 [facility] 08:35:00-00:00 [facility] ([facility]) Rehab Preadmission Screen REPORT#:[id number] REPORT STATUS: Signed DATE:06/26/21 TIME: 834 PATIENT: HERB AVENDANO UNIT #: [id number] ROOM: BED: : 65 AGE: 55 SEX: M ATTEND: Chitra Rosas MD ADM AUTHOR: Meri Rosas MD * ALL edits or amendments must be made on the el ectronic/computer document * IRF Preadmission Screen Information From CRS PAS CRS PAS documentation: The data set between the solid lines has been im ported from CRS PAS documentation. PREADMISSION INFORMATION: DEMOGRAPHICS: Assessment date: 06/25/21 Assessment time: 1024 Patient has an Advanced Directive: Yes Content of advance directive/living will/plan of care: Full code Copy of advance directive on chart: Yes Referring physician: Simon Vora-Internal Medici ne Primary care provider: None Consulting physician(s): Chip Spear-Orthoped Jazmine Arteaga-ТАТЬЯНА [place] Referral contact name: Dawna Aldrich Referral contact number: [phone] Referring setting: [facility], [facility] Room number: 5003 IMPAIRMENT GROUP: Impairment group: Other neurologic conditions Etiologic diagnosis: Lumbar Spinal Stenosis with Radiculopathy REVIEW OF MED CONDITIONS: Date of onset: 06/18/21 Current surgery date and type: 06/20/21: Alejandro Spear nthony: Transforaminal Lumbar Interbody Fusion L4-L5, L5-S 1, L4 and L5 Laminectomy, S1 partial Lami, Posterior Spinal Fusion L4-S1, Repair of incidental duroto my Active comorbid conditions: Hypokalemia, Incontinence , bowel and bladder, Back pain, , Leukocytosis, Blood loss , anemia, incid ental durotomy Past medical and surgical hi story: Chronic Back Pain, Multiple Lumbar Surgeries Had major surgery within 100 days of admission: Yes Risk for medical/clinical complications: Anemia, Arrhythmia, Aspiration, BP fluctuation, Cardiac instability, Blood sugar fl uctuation, DVT, Constipation, Depression, Electrolyte imbalance, Hypoxia, Inci sional dehiscence, Infection, Injury d/t falls, Nutritional compromise, Pain, Renal insuff/failure, Urinary retention, Skin breakdown Acute hospital stay summary: Herb Avendano is a 55 year old male who presented to [facility] for a scheduled TLIF L4-S1 repair of dur al tear. He has a PMHx significant for chronic back pain and has had mu ltiple lumbar surgeries. Dr. Spear, Orthopedic Surgeon admitted him o n 06/20/21 for L4-L5 and L5-S1 internal disk derangement and L4-L5 and L5-S1 lum bar spinal stenosis with radiculopathy as well as was found to have an incidental durot michael. He performed a transforaminal lumbar interb alie fusion on L4-L5 and L5-S1 as well as laminectomy on L4 and L5 and partial on S1. He also repaired the durotomy. The injuries resulted from a fall at work and failed outpatie nt conservative treatment. 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 He lives in a single story home with his spouse and his goals are to be able to walk again without pain. Mr. Juan Alberto newell rated the procedure well and post operatively he developed blood loss anemia (9.0 hgb), Hypokalemia, and Leukocytosis. He also presents with significant deficits in his functional mobility as well as experiencing bowel and bladd er incontinence. He will benefit a much more intense comprehensive rehab program so his medical issues can be managed as well as pa rticipate in three hours of therapy five days a week to regain his strenght, mobi lity, transfers, gait, distance, and ADLs to ensure a safe discharge home and de crease the burden of care on his spouse and family. PREADMIT VITALS: Date/Time 06/25/21 0619 Temp F Temp C 36.7 Pulse 103 RR 17 BP 125/74 SPO2% 100 Ht ft 5 Ht in 9 Wt lbs 165.000 BMI 24.3 SUPPORTING DIAGNOSTICS/LABS/RADIOLOGY/CARDIOLOGY : Date: 06/23/21 06/24/21 WBC: 11.7 HGB: 9.1 HCT: 24.7 Ca: 8.3 Na: 133 K+: 3.3 Glu: 112 Mg: BUN: 26 Creat: 1.03 Tot protein: Alb: PTT: PT: INR: PLT: Additional labs: SARS-COV-2 Ag Rapid: Negative: 06/18/21 Cultures: Imagin06/22/21: Lumbar Spi ne CT: Postr discetomy and posterior surgical fusion at L4-L5 and L5-S1. There is some bone graft material and left lateral aspect of the canal space and foramen at L4-L5 whi ch appears to cause a mild to moderate left foraminal stenosis and possibly mild canal stenosis. Mild to moderate foraminal stenosis at L5-S1 worse on the right s econdary to residual endplate marginal osteophytes and facet arthrosis. Other supporting diagnostics: RESPIRATORY STATUS: Respiratory treatments: Incentive spirometer O2 liters per minute: Respiratory status: Patient tolerating Room Air. Incentive Spirometry to increase lung capacity and decrease risk of Atel ectasis NEUROLOGIC STATUS: Neurologic status: Alert, Oriented to person, Or iented to place, Oriented to time, Oriented to situation, Follows complex com mands Patient's mood and behavior: Appropriate, Social Hand dominance: Right BOWEL/BLADDER: Continent of bladder for developmental age: No Number of bladder accidents in last 48 hours: 2 Catheter type: Insertion date: Bladder aids: Bladder comment: Continent of bowel for developmental age: No Number of bowel accidents in last 48 hours: Date of last BM: Colostomy: Ileostomy: Bowel aids: Bowel comment: patient having issues with BM. Ne eds a bowel and bladder regimine. SKIN: Skin alteration: None SKIN ALTERATION 1: Type: Location: Stage: Description: SKIN ALTERATION 2: Type: Location: Stage: Description: SKIN ALTERATION 3: Type: Location: Stage: Description: SKIN ALTERATION 4: Type: Location: Stage: Description: EATING/NUTRITIONAL: Nutritional intake: PO regular food, PO thin liq uids Eating compensatory strategies: Medication administration: IV, Medications whole , Subcutaneous REHAB NEEDS: Special rehabilitation needs: Intravenous therap y, Prosthetics/orthotics Special rehabilitation precautions: Prosthetics/ orthotics, ROM, Safety/fall, Spinal Rehabilitation precaution detail: patient with s jose precautions. FUNCTIONAL ASSESSMENT: FUNC. TASK PRIOR LOF CURRENT LOF EXPECTED LOF Bathing Independent Total assistance Independen t U.B. Dressing Independent Partial/moderate asst Independent L.B. Dressing Independent Partial/moderate asst Independent Bed/Ch Transf. Independent Partial/moderate ass t Independent Toilet Transfer Independent Partial/moderate as st Independent Stairs Independent Total assistance Independent Locomotion Independent Partial/moderate asst In dependent Locomotion prior device use: None Description of prior level of locomotion: Locomotion current device: RW/FWW Locomotion current distance traveled without a r est break: 25 feet Description of current level of locomotion: madelyn ent required frequent rest breaks due to pain. guarded nataliia Description of expected level of locomot ion: increase gait, strength, mobility Language and Cognition: Alert and oriented X 4. Australian Speaking. 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 Marital status: Hobbies/leisure activities: Prior living situation: Home Living with: Family Living with comment: lives with . ANTICIPATED DC PLAN/POST IRF: Primary support contact: Dorie Avendano Relationship to patient: Spouse Phone number 1: [phone] Phone number 2: Caregiver availability: 24 hours a day Caregiver can provide: Intermittent assistance, Physical assistance Patient/caregiver goals/preferences: to be able to walk without pain. Expected discharge destination: Home Expected discharge physical layout: One story, T ub/shower combo Number of external stairs: Number of internal stairs: Railing details: Grab bars location: Barriers to discharge: Endurance Options discussed with patient: Yes Options discussed with caregiver: Yes Patient agrees with program requirements: Yes ACTIVITY TOLERANCE: Current treatment interventions: Occupational th erapy, Physical therapy Patient able to tolerate 3 hours of therapy a da y: Yes Patient able to tolerate 15 hours of therapy a w nikolski: Altered therapy schedule comment: ACUTE INPATIENT REHAB PLAN: Estimated length of stay in days: 10 Anticipated services in acut e inpatient rehab: Rehab nursing 21/12, marketing intelligence manager, Occupational therapy, Physical therapy, Prosthet ics/orthotics CRS ELECTRONIC SIGNATURE: CRS #1 electronic signature: Queta [place] CRS credentials: MILK DELIVERER Date: 06/26/21 Time: 829 CRS #2 electronic signature: CRS credentials: Date: Time: CRS #3 electronic signature: CRS credentials: Date: Time: Provider Pre-Admit Summary Acute IP rehab admit: criteria met MD determination Based upon my evaluation and review of t he supporting assessment documentation and consultation with the pr eadmission director of food and nutrition services, I have determined, prior to admitting this patient, that there is r easonable expectation that at the time of admission to the IRF, the patient's medical management and rehabilitation needs require an inpatient stay and close physician involvement. Patient can be expected to actively participate in, and benefit from, and intensive rehab therapy prog akanksha whose intensity is not provided in lower levels of care. Significant barriers that can only be addressed in an acute inpatient rehab program, including, but not limited to: Complex acute rehab needs: Med adjustment/mgmt., New medical diagnosis, New medical complication, Postsurgery req mgt/care, Hospitalist consult, VTE Risk Electronically Signed by Meri Rosas MD on at 0836 RPT #:[id number] END OF REPORT 2021-06-20 [id number] [facility] 12:50:00-00:[address] [place] [id number] PATIENT NAME: HERB AVENDANO JR ADMIT DATE: 06/20/21 ACCOUNT NO: [id number] ROOM NO: N.5003 AGE: 55 REPORT TYPE: OPERATIVE REPORT SEX: M ADMITTING PHYSICIAN:Chip Spear MD ATTENDING PHYSICIAN:Chip Spear MD OPERATION DATE: 06/20/2021 PREOPERATIVE DIAGNOSES: 1. L4-L5 internal disk derangement. 2. L5-S1 internal disk derangement. 3. L4-L5 and L5-S1 lumbar spinal stenoses. 4. Lumbar radicular syndrome. POSTOPERATIVE DIAGNOSES: 1. L4-L5 internal disk derangement. 2. L5-S1 internal disk derangement. 3. L4-L5 and L5-S1 lumbar spinal stenoses. 4. Lumbar radicular syndrome. 5. Incidental durotomy.. PROCEDURES: 1. Transforaminal lumbar interbody fusion, L4-L5 . 2. Transforaminal lumbar interbody fusion, L5-S1 . 3. L4 laminectomy. 4. L5 laminectomy. 5. S1 partial laminectomy. 6. Posterior spinal fusion, L4 to S1. 7. Posterior spinal instrumentation with Medacta 7.0 x 45 x4 and a 7.0 x 40 x2 with a 65 mm prebent rods x2. 8. Allograft for spinal fusion. 9. Use of Amnio protective shield. 10. Repair of incidental durotomy. SURGEON: Chip Spear MD LACQUERER: None. ANESTHESIA: General endotracheal. ESTIMATED BLOOD LOSS: 250 mL. CULTURES: None. SPECIMENS: None. DRAINS: Hemovac and Lauren. PATIENT NAME HERB AVENDANO ACCOUNT #: [id number] DISPOSITION: To recovery. INDICATIONS: This patient is a 55-year-old male who presented with a lumbar radicular syndrome. This had been refractory to conservative care. He was diagnosed with lumbar stenosis at L4-L5 and L5-S 1 as well as internal derangement. The patient failed nonopera tive treatment and was admitted to the hospital where informed consent was obtained for surgery. Risks are inclusive of, but not exclusive of bleeding, infection, nerve damage, chronic pain, and need for r eoperation. There is also risk of hardware failure, hardware migration as well as failure of fusion. There is also risk of bone graft failure and poor cosmesis of the wound. Th ere is also risk of sudden , anesthetic risk, pulmonary risks includin g atelectasis and pneumonia. Blood clot risks including deep venous thrombosi s and pulmonary embolism. Cardiac risks including abno rmal heart rhythms and myocardial infarction. There is also risk of stroke. OPERATIVE PROCEDURE: The patient was identified in the preoperative holding area and brought to the oper ating room where general endotracheal anesthesia was found to be adequate. He was positioned prone on a Keanu frame. All bony prominences were padded appropriately. This was after Lauren was placed. The skin and subcutaneous tissues were infiltrated w ith a dilute solution of epinephrine. An incision was made and extending over the previous incision. The lumbodorsal fascia and t he scar were identified and divided. Dissection was carried out to the level of the facet joints. In traoperative x-rays confirmed the levels. We extended our exposure to the transverse proce sses and started with the patient's left side for the posterior spinal fus ion portion. We used standard technique of maggi, followed by a pedicle finder, followed by probe, followed by tap, followed by probe, followed by screw and pl aced a 7.0 x 45 screw into L4 and L5 and 7.0 x 40 into S1. We then turned our attention to the patient's right side. Again, under fluoroscopic guidance, we used standard technique of maggi, followed by a pedicle finder, followed by probe, followed by tap, followed by probe, followed by screw and placed a 7.0 x 45 screw into L4 and L5 and 7.0 x 40 screw into S1. All screws had excellent bite. All screws measured above 20 milliamps. We selected the appropriate sized erica. The locking mechanism was engaged on the patient's right side. We then turned our attenti on to the transforaminal interbody fusion and decompression portion. Deep retractors were placed so that we c ould perform a complete laminectomy of L4 and L5 as well as a partial laminectomy of S1 . We carried dissection laterally to perform adequat e lateral recess and foraminal decompression from L4 to S1. We removed large amounts of ligam entum flavum. We removed large amounts of bone, which was saved for use during the spin al fusion procedure. We did experience durotomy at this time, which we repai red with Tisseel and Duragen. Valsalva in the end produced no further CSF flui d. After adequate decompression was assured, we began the transforaminal interbody fusion portion. We approached it from th e patient's left side. We started with the L5-S1 level. We performed our inferior facet ectomy and then subsequently made a superior articular facetectomy. Epidural bleeders were controlled with PATIENT NAME JUAN ALBERTOHERB GARY ACCOUNT #: [id number] bipolar cauterization. We then made our annuloto my and performed a complete diskectomy at L5-S1. We prepared the end plates. We used curettes and scrapers. We then trialled starting with a size 8 trial. We went up to a size 9. This felt good. We placed our real size 9 graft packe d with allograft as well as autograft bone. We then turned our attention to the madelyn ent's L4-L5 level. Again, we performed an inferior articular facetectomy and subsequent ly placed in the superior articular facetectomy. We gained control of epid ural bleeders with bipolar cauterization. We made our annulotomy. We prepar ed the endplates with the use of curettes and scrapers. We started wit h a size 9 trial and went up to a size 10. This felt good. We placed the real s ize 10 cage, packed with allograft and autograft bone. The wound was then copiously irrigated. We again inspected the decompression and found no further isabelle nita either in the lateral recess or the foramen. A deep drain was placed. Amnio protective layer wa s then placed. We then placed vancomycin powder and began closure. We then xu dameon our allograft bone and autograft bone in the lateral gutters bilaterall y. The lumbodorsal fascia was reapproximated with #1 Vicryl sutures. The skin was closed with 2-0 Vicryl followed by running subcuticular 3-0 Vicryl sutu res. Sterile dressing was applied. The drapes were discontinued. The patie nt was transferred from the operating table to the hospital bed where anesth esia was discontinued. Intraoperative neurophysiology testing was utili zed throughout the case to safeguard the patient due to his risk of mortali ty, severity of illness, and morbidity. To confirm maintain functional integr ity of the neural structures, nerves and muscles were monitored throughout the case. Intraoperative modalities utilized include SSEP uppers, SSEP lowers, MEP, SEMG, EEG, TO4. All screws measured above 20 milliamps at the end. Dictated By: Chip Spear MD WT: OP:N.CEASAR/DANNA/BJ Conf#: [id number]#: [id number] Authenticated by Chip Spear MD On 06/22/2021 12:48:51 PM Electronically Signed by Chip Spear MD on at 1248 PATIENT NAME HERB AVENDANO JR ACCOUNT #: [id number] 2021-06-18 [id number] [facility] [place] [address] PATIENT NAME: HERB AVENDANO JR ADMIT DATE: 06/20/21 ACCOUNT NO: [id number] ROOM NO: N.5003 AGE: 55 REPORT TYPE: ELECTROCARDIOGRAM SEX: M ADMITTING PHYSICIAN:Chip Spear MD ATTENDING PHYSICIAN:Chip Spear MD Order: [id number] Test Reason : Resting 12-lead ECG Test Date/Time Stamp: WedJun 18 2021 15:35:42 Blood Pressure : / mmHG Vent. Rate : 096 BPM Atrial Rate : 000 BPM P-R Int : 155 ms QRS Dur : 113 ms QT Int : 371 ms P-R-T Axes : 049 -15 035 degree s QTc Int : 425 ms SINUS RHYTHM INCOMPLETE RIGHT BUNDLE BRANCH BLOCK NONSPECIFIC ST T-WAVE ABNORMALITY BORDERLINE ECG Reviewed by Confirmed by MD May Yasir ([id number]) on 06/22/19 6:26:50 PM Referred By: Chip Spear Confirmed by:Joaquin vale MD at 1826 PATIENT NAME HERB AVENDANO JR ACCOUNT #: [id number]
[2022-11-28] MEDS ORDERED: HYDROCODONE/APAP 10/325 TAB ONE (12:47)
--- NOTE | 2022-11-28 12:51 | RAD REPORT ---
EXAM DESCRIPTION: US - Scrotum Testicles - 11/28/2022 12:15 pm CLINICAL HISTORY: right sided scrotal swelling COMPARISON: Pelvis dated 10/09/2021 TECHNIQUE: Sonographic grayscale and color flow images of the scrotum were obtained. FINDINGS: The right testicle measures 3.4 x 2.2 x 2.7 centimeter. No intratesticular masses or evide nce of testicular torsion. The left testicle measures 2.7 x 2.8 x 2.5 centimeter. No intratesticular masses or evidence of testi cular torsion. Hyperemia throughout the right epididymis, as seen on color duplex imaging, with mild enlargement, an d hyperechogenicity of the adjacent fat. No pathologic fluid collections. IMPRESSION: Hyperemia of the right epididymis, with hyperechogenicity of the adjacent fat, concernin g for acute right epididymitis. No evidence of testicular torsion.
--- NOTE | 2022-11-28 13:01 | EDPHYS ---
Physician Documentation [facility] Name: Yash Carreon Jr Age: 57 yrs Sex: Male : 1965 Arrival Date: 11/28/2022 Time: 11:09 Bed 13 Private MD: ED Physician Drake Vail HPI: 11/28 11:17 This 57 yrs old Male presents to ER via Wheelchair with complaints of Testicular jmm Problem. 11:17 This is a 57 year old male with a history of spinal injury that presents to the ED with jmm complaints of right sided scrotal swelling and redness. Denies fever. Recently treated for a a uti. . Historical: - Allergies: 11:20 Tetanus-Diphtheria Toxoids-Td; hb - PMHx: 11:20 Hernia; Lactose intolerance; hb - PSHx: 11:20 back surgery; hernia repair; hb - Immunization history:: Adult Immunizations up to date. - Social history:: Smoking status: Patient denies any tobacco usage or history of. ROS: 11:17 Constitutional: Negative for fever, chills, and weight loss, Respiratory: Negative for jmm shortness of breath, cough, wheezing, and pleuritic chest pain, Abdomen/GI: Negative for abdominal pain, nausea, vomiting, diarrhea, and constipation. 11:17 : Positive for testicular pain 11:17 All other systems are negative. Exam: 11:17 Constitutional: This is a well developed, well nourished patient who is awake, alert, jmm and in no acute distress. Head/Face: atraumatic. Eyes: EOMI, no conjunctival erythema appreciated ENT: Moist Mucus Membranes Neck: Trachea midline, Supple Chest/axilla: Normal chest wall appearance and motion. Cardiovascular: Regular rate and rhythm. No edema appreciated Respiratory: Normal respirations, no respiratory distress appreciated Abdomen/GI: Non distended Back: Normal ROM Skin: General appearance color normal 11:17 : Male external genitalia: swelling, scrotal, that is moderate. 11:17 Neuro: Orientation: is normal, Mentation: is normal, Memory: is normal. Vital Signs: 11:18 BP 134 / 76; Pulse 86; Resp 16; Temp 98.4(O); Pulse Ox 100% on R/A; Weight 74.84 kg; hb Height 5 ft. 9 in. ; Pain 8/10; 12:12 BP 134 / 70; Pulse 89; Resp 18 S; Pulse Ox 98% on R/A; kc6 11:18 Body Mass Index 24.37 (74.84 kg, 175.26 cm) hb 11:18 Pain Scale: Adult hb MDM: 11:17 Patient medically screened. [facility] 15:02 Differential diagnosis: cellulitis, epididymitis, orchitis, torsion. Data reviewed: [facility] vital signs, nurses notes. Counseling: I had a detailed discussion with the patient and/or guardian regarding: the historical points, exam findings, and any diagnostic results supporting the discharge/admit diagnosis, radiology results, the need for outpatient follow up, to return to the emergency department if symptoms worsen or persist or if there are any questions or concerns that arise at home. 11/28 11:23 Order name: Scrotum Testicles; Complete Time: 12:53 [facility] Administered Medications: 12:40 Drug: [place] PO 10 mg-325 mg 1 tabs Route: PO; kc6 13:01 Follow up: Response: No adverse reaction; Pain is decreased; RASS: Alert and Calm (0) kc6 Disposition: 15:23 Co-signature as Attending Physician, Drake Vail MD I reviewed the patient's care rn provided by the Advanced Practice Provider and agree with the diagnosis and treatment plan. Disposition Summary: 11/28/22 13:00 Discharge Ordered Location: Home [facility] Condition: Stable [facility] Diagnosis - Epididymitis [facility] Followup: [facility] - With: Fracisco Mathews MD - When: 2 - 3 days - Reason: Recheck today's complaints, Continuance of care, Re-evaluation by your physician Discharge Instructions: - Discharge Summary Sheet [facility] - Epididymitis [facility] Forms: - Medication Reconciliation Form [facility] - Thank You Letter [facility] - Antibiotic Education [facility] - Prescription Opioid Use [facility] - [email or web address] [facility] Prescriptions: - levofloxacin 500 mg Oral Tablet - take 1 tablet by ORAL route once daily for 10 days; 10 tablet; Refills: 0, [facility] Product Selection Permitted Signatures: Dispatcher [employer] EDTae West PA PA [facility] Drake Vail MD MD rn Baxter, Heather, RN RN hb Campbell, Kaitlyn, RN RN kc6
--- NOTE | 2022-11-28 13:01 | ER ---
Nurse's Notes [facility] Name: Yash Carreon Jr Age: 57 yrs Sex: Male : 1965 Arrival Date: 11/28/2022 Time: 11:09 Bed 13 Private MD: Diagnosis: Epididymitis Presentation: 11/28 11:18 Chief complaint: Right testicular swelling and pain that radiates to groin x 2 days. hb Denies injury. Coronavirus screen: At this time, the client does not indicate any symptoms associated with coronavirus-19. Ebola Screen: No symptoms or risks identified at this time. Initial Sepsis Screen: Does the patient meet any 2 criteria? No. Patient's initial sepsis screen is negative. Does the patient have a suspected source of infection? No. Patient's initial sepsis screen is negative. Risk Assessment: Do you want to hurt yourself or someone else? Patient reports no desire to harm self or others. Onset of symptoms was November 27, 2022. 11:18 Method Of Arrival: Wheelchair hb 11:18 Acuity: JAYESH 3 hb Historical: - Allergies: 11:20 Tetanus-Diphtheria Toxoids-Td; hb - PMHx: 11:20 Hernia; Lactose intolerance; hb - PSHx: 11:20 back surgery; hernia repair; hb - Immunization history:: Adult Immunizations up to date. - Social history:: Smoking status: Patient denies any tobacco usage or history of. Screenin:22 [facility] ED Fall Risk Assessment (Adult) History of falling in the last 3 months, kc6 including since admission No falls in past 3 months (0 pts) Confusion or Disorientation No (0 pts) Intoxicated or Sedated No (0 pts) Impaired Gait No (0 pts) Mobility Assist Device Used No (0 pt) Altered Elimination No (0 pt) Score/Fall Risk Level 0 - 2 = Low Risk Oriented to surroundings, Maintained a safe environment, Educated pt \T\ family on fall prevention, incl call for assistance when getting out of bed, Assessed \T\ reinforced patient's understanding of fall precautions, Hourly rounding (assess needs \T\ fall precautionary measures) done. Abuse screen: Denies threats or abuse. Denies injuries from another. Nutritional screening: No deficits noted. Tuberculosis screening: No symptoms or risk factors identified. Assessment: 11:23 Pain: Complains of pain in right testicle, groin area Pain began 2-3 days ago. Neuro: kc6 Level of Consciousness is awake, alert, obeys commands, Oriented to person, place, time, situation, Appropriate for age. Cardiovascular: Capillary refill < 3 seconds. Respiratory: Airway is patent Trachea midline Respiratory effort is even, unlabored, Respiratory pattern is regular, symmetrical. GI: No signs and/or symptoms were reported involving the gastrointestinal system. : No signs and/or symptoms were reported regarding the genitourinary system. EENT: No signs and/or symptoms were reported regarding the EENT system. Derm: No signs and/or symptoms reported regarding the dermatologic system. Skin is intact, Skin is pink, warm \T\ dry. Musculoskeletal: No signs and/or symptoms reported regarding the musculoskeletal system. Circulation, motion, and sensation intact. Capillary refill < 3 seconds, Range of motion: intact in all extremities. 12:12 Reassessment: Patient appears in no apparent distress at this time. No changes from kc6 previously documented assessment. Patient and/or family updated on plan of care and expected duration. Pain level reassessed. Patient is alert, oriented x 3, equal unlabored respirations, skin warm/dry/pink. Vital Signs: 11:18 BP 134 / 76; Pulse 86; Resp 16; Temp 98.4(O); Pulse Ox 100% on R/A; Weight 74.84 kg; hb Height 5 ft. 9 in. ; Pain 8/10; 12:12 BP 134 / 70; Pulse 89; Resp 18 S; Pulse Ox 98% on R/A; kc6 11:18 Body Mass Index 24.37 (74.84 kg, 175.26 cm) hb 11:18 Pain Scale: Adult hb ED Course: 11:12 Patient arrived in ED. ts1 11:13 Tae Finney PA is PHCP. jmm 11:13 Drake Vail MD is Attending Physician. jm 11:20 Triage completed. hb 11:20 Arm band placed on. hb 11:22 Jessica Membreno, NAIMA is Primary Nurse. kc6 11:24 Patient has correct armband on for positive identification. Bed in low position. Call kc light in reach. Side rails up X 1. Adult w/ patient. 12:11 US Scrotum Testicles In Process Unspecified. EDMS 13:00 Fracisco Mathews MD is Referral Physician. [facility] 13:07 No provider procedures requiring assistance completed. Patient did not have IV access kc6 during this emergency room visit. Administered Medications: 12:40 Drug: [place] PO 10 mg-325 mg 1 tabs Route: PO; kc6 13:01 Follow up: Response: No adverse reaction; Pain is decreased; RASS: Alert and Calm (0) kc6 Medication: 13:07 VIS not applicable for this client. kc6 Outcome: 13:00 Discharge ordered by . [facility] 13:07 Discharged to home via wheelchair, with significant other. kc6 13:07 Condition: stable 13:07 Discharge instructions given to patient, Instructed on discharge instructions, follow up and referral plans. medication usage, Demonstrated understanding of instructions, follow-up care, medications, Prescriptions given X 1. 13:07 Patient left the ED. kc6 Signatures: Dispatcher [employer] EDMS Tae Finney PA PA [facility] Latoya Fountain RN RN hb Campbell, Kaitlyn, RN RN kc6 Hannah Reyes PAS PAS ts1 Corrections: (The following items were deleted from the chart) 11:24 11:22 [facility] ED Fall Risk Assessment (Adult) History of falling in the last 3 months, kc6 including since admission No falls in past 3 months (0 pts) Confusion or Disorientation No (0 pts) Intoxicated or Sedated No (0 pts) Impaired Gait Yes (1 pt) Mobility Assist Device Used Yes (1 pt) Altered Elimination No (0 pt) Score/Fall Risk Level 0 - 2 = Low Risk Oriented to surroundings, Maintained a safe environment, Educated pt \T\ family on fall prevention, incl call for assistance when getting out of bed, Assessed \T\ reinforced patient's understanding of fall precautions, Hourly rounding (assess needs \T\ fall precautionary measures) done, kc6
[2022-11-28 13:12] VITALS: TEMP 98.4
[2022-11-28 13:13] VITALS: BP 134/70; O2SAT 98
== END 2022-11-28 13:07 | disposition home or self-care (01) ==
LOC: ER 11:09
DX: N45.1 Epididymitis (principal)
CPT/HCPCS: 76870; 99283